=== PATIENT | female | born 1980 | race Two or more races ===

== ENCOUNTER 2021-08-15 16:22 | Emergency (ER) | payer MEDICAID, SELFPAY ==
--- NOTE | 2021-08-15 | ECG_ITS ---
Test Reason : chest pain/dizzy Blood Pressure : / mmHG Vent. Rate : 082 BPM Atrial Rate : 082 BPM P-R Int : 160 ms QRS Dur : 084 ms QT Int : 370 ms P-R-T Axes : 038 -04 018 degrees QTc Int : 432 ms Normal sinus rhythm Minimal voltage criteria for LVH, may be normal variant ( R in aVL ) Borderline ECG When compared with ECG of 21-JUL-2019 13:06, No significant change was found Referred By: Generic ED Physician Electronically Signed By:ELO PETERSON MD
[2021-08-15 16:30] VITALS: BP 124/63; PULSE 86; RESP 16; TEMP 36.4; O2SAT 99; BMI 42.5
--- NOTE | 2021-08-15 16:57 | ED.CHESTPAIN ---
HPI - Chest Pain General Chief Complaint: Chest Pain Stated Complaint: chest pain and dizzness Time Seen by Provider: 08/15/21 16:57 Source: patient Mode of arrival: ambulatory Limitations: no limitations History of Present Illness HPI narrative: Since Friday she has had dizziness that has not stopped, the patient suffers from chronic vertigo. During this time she has had intermittent chest pain. she feels spaced out. Patient has had vertigo since 2007. Patient states she takes meclizine. At times she has gone to physical therapy. Now feeling that she is off balance. Patient has had high blood pressure and associated chest pain in the past. MD complaint: chest pain Onset (ago): year(s) Timing of current episode: episodic Onset: other (with vertigo) Pain location: substernal Severity: mild Quality: tightness Risk Factors Coronary artery disease risk factors: hyperlipidemia and hypertension Related Data Allergies Allergy/AdvReac Type Severity Reaction Status Date / Time No Known Allergies Allergy Unverified 06/15/20 17:52 Review of Systems Constitutional: Constitutional: Reports no additional constitutional complaints Eyes: Eyes: Reports no additional eye complaints ENT: Denies dizziness Cardiovascular: Cardiovascular: Reports no additional cardiovascular complaints Respiratory: Respiratory: Reports as per HPI Gastrointestinal: Gastrointestinal: Reports no additional gastrointestinal complaints Genitourinary: Genitourinary: Reports no additional female genitourinary complaints Musculoskeletal: Musculoskeletal: Reports no additional musculoskeletal complaints Integumentary/Breasts: Skin/Breast: Denies rash Neurologic: Reports system reviewed and no additional complaints, except as documented, Denies dizziness and Denies Sensory deficit (Neuro) Psychiatric: Psychiatric: Denies anxiety [facility] Past Medical History Medical History Arthritis Bipolar 1 disorder Depression Fibromyalgia HTN (hypertension) Migraine Sleep apnea Vertigo Social History Social History Advance Directives: No Advance Directives Information Provided: No Physical Exam Vital Signs: Vital Signs: Last Vital Signs Temp 97.5 F 08/15/21 16:30 Pulse 86 08/15/21 16:30 Resp 16 08/15/21 16:30 BP 124/63 08/15/21 16:30 Pulse Ox 99 08/15/21 16:30 Body Mass Index 42.5 Const: Nutritional Appearance: obese Orientation/consciousness: oriented to person and patient oriented x3 Limitations: no limitations HENMT: Other: bilateral cerumen impaction Head: Yes normal to inspection General nose exam: Normal external nose present Mouth: Normal oral and palatal mucosa present and oropharynx normal Throat: Yes posterior oropharynx normal Eyes: Other: no nystagmus General: appearance normal, both eyes and all related structures Neck: Other: supple Neck: Yes normal visual inspection Chest: Chest palpation & inspection: normal inspection of the chest Resp: Auscultation: clear to auscultation bilaterally Cardio: Jugular venous distension: no JVD Rate: regular rate Rhythm: regular rhythm Heart sounds: S1 normal heart sound present and S2 normal heart sound present GI: Inspection: Yes normal to inspection Palpation (GI): Soft to palpation, nontender and No hepatosplenomegaly present Auscultation: normal bowel sounds : General: Yes no CVA tenderness Back/Spine/Pelvis: Back: no CVA tenderness Skin: General skin exam: no rashes or lesions noted Neuro: Other: patient sensitive to movement despite no nystagmus General: oriented to person and patient oriented x3 Cranial nerves: Yes CN's II-XII intact bilaterally Motor exam (neuro): 5/5 motor strength present throughout Sensory Exam: No Sensory deficit (Neuro) Extrem: General: Yes normal to inspection Psych: Appearance: grossly normal Course Reevaluation(s) Reevaluation #1: Patient with vertigo likely from bilateral cerumen impaction, chest pain story does not sound cardiac, EKG and troponin are normal. Will dc home Time: 18:08 Procedures Procedure Narrative Procedure Narrative: bilateral cerumen impactions removed with a combination of irrigation and currette MDM - Chest Pain Lab Data Result diagrams: 08/15/21 17:33 08/15/21 17:33 Labs: Lab Results 08/15/21 08/15/21 08/15/21 Range/Units 17:33 17:33 17:33 WBC 7.8 (4.8-10.8) X10*3/uL RBC 5.14 (4.20-5.50) X10*6/uL Hgb 11.6 L (12.0-16.0) g/dl Hct 38.2 (37.0-47.0) % MCV 74.3 L (80.0-98.0) fL MCH 22.6 L (27.0-33.0) pg MCHC 30.4 L (31.0-35.0) g/dl RDW 17.3 H (11.0-16.0) % Plt Count 319 (160-400) X10*3/uL MPV 10.2 (9.4-12.3) fL Immature Gran % (Auto) 0.4 (0.0-0.4) % Neut % (Auto) 70.5 (45-73) % Lymph % (Auto) 20.4 (20-40) % [place] % (Auto) 7.0 (2-11) % Eos % (Auto) 1.2 (0-4) % Baso % (Auto) 0.5 (0-2) % Lymph # (Auto) 1.6 (1.2-4.9) X10*3/uL [place] # (Auto) 0.5 (0.1-1.2) X10*3/uL Eos # (Auto) 0.1 (0.0-0.4) X10*3/uL Baso # (Auto) 0.0 (0.0-0.2) X10*3/uL Abs Immat Gran (auto) 0.03 (0.00-0.03) X10*3/uL Absolute Neuts (auto) 5.5 (2.0-8.3) x10*3/uL Absolute Nucleated RBC 0.000 (0.0-0.012) X10*3/uL Nucleated RBC % (auto) 0.0 (0.0-0.2) /100WBC Sodium 139 (135-145) mmol/L Potassium 3.5 (3.3-5.1) mmol/L Chloride 105 (96-108) mmol/L Carbon Dioxide 27 (22-29) mmol/L Anion Gap 11 L (12-20) BUN 12 (9-16) mg/dL Creatinine 0.85 (0.5-1.4) mg/dL Estim Creat Clear Calc 104.1 Estimated GFR > 60 Random Glucose 102 (60-115) mg/dL Calcium 9.1 (8.4-10.2) mg/dL Troponin I High Sens < 3.5 (<3.5-17.0) ng/L ECG Data ECG #1: Attestation: I personally reviewed and interpreted this ECG as follows: Interpretation: sinus rate of 80, no st or twave changes Discharge Plan Discharge Clinical Impression: Vertigo, Bilateral impacted cerumen, Atypical chest pain Patient Disposition: Home, Self-Care Instructions: Vertigo (ED), Noncardiac Chest Pain (ED) Additional Instructions: May continue to take meclizine if your vertigo continues Referrals: Teena Castillo MD [Primary Care Provider] - 1 week
[2021-08-15 17:37] LABS: MANUAL DIFF FLAG NO
[2021-08-15 17:39] LABS: Basophils Percent Auto 0.5 % (0-2); Eosinophils Absolute Auto 0.1 X10*3/uL (0.0-0.4); Eosinophils Percent Auto 1.2 % (0-4); Hematocrit 38.2 % (37.0-47.0); Hemoglobin 11.6 g/dl (12.0-16.0); Imm Gran Abs Auto 0.03 X10*3/uL (0.00-0.03); Imm Gran Pct Auto 0.4 % (0.0-0.4); Lymphocytes Absolute Auto 1.6 X10*3/uL (1.2-4.9); Lymphocytes Percent Auto 20.4 % (20-40); Mean Corpuscular HGB Conc 30.4 g/dl (31.0-35.0); Mean Corpuscular Hemoglobin 22.6 pg (27.0-33.0); Mean Corpuscular Volume 74.3 fL (80.0-98.0); Mean Platelet Volume 10.2 fL (9.4-12.3); Monocytes Absolute Auto 0.5 X10*3/uL (0.1-1.2); Neutrophils Absolute Auto 5.5 x10*3/uL (2.0-8.3); Neutrophils Percent Auto 70.5 % (45-73); Platelet Count 319 X10*3/uL (160-400); Red Blood Count 5.14 X10*6/uL (4.20-5.50); Red Cell Distribution Width 17.3 % (11.0-16.0); White Blood Count 7.8 X10*3/uL (4.8-10.8)
[2021-08-15 18:00] LABS: Anion Gap 11 (12-20); Blood Urea Nitrogen 12 mg/dL (9-16); Calcium 9.1 mg/dL (8.4-10.2); Carbon Dioxide 27 mmol/L (22-29); Chloride 105 mmol/L (96-108); Creatinine Clr Calc Pharmacy 104.1; Estimated Glomerular Filt Rate > 60; Glucose Random 102 mg/dL (60-115); Potassium 3.5 mmol/L (3.3-5.1); Sodium 139 mmol/L (135-145)
[2021-08-15 18:01] LABS: Troponin-I High Sensitivity < 3.5 ng/L (<3.5-17.0)
[2021-08-15 18:18] VITALS: BP 125/82; PULSE 74; RESP 16; TEMP 36.6; O2SAT 99
== END 2021-08-15 18:25 | disposition home or self-care (01) ==
PROVIDERS: Emergency Provider Emergency Medicine; PCP Internal Medicine
DX: R07.89 Other chest pain (principal); H61.23 Impacted cerumen, bilateral; R42 Dizziness and giddiness
CPT/HCPCS: 36415; 69210; 80048; 84484; 85025; 93005; 99283

== ENCOUNTER → 2021-11-06 13:43 | Outpatient (BNVA) | payer MEDICAID, SELFPAY | PROVIDERS: PCP Internal Medicine; Visit Provider Physician Assistant ==

== ENCOUNTER 2021-11-13 14:07 | Outpatient (REF) | payer MEDICAID, SELFPAY ==
[2021-11-13 16:08] LABS: Iron 32 mcg/dL (30-160); Percent Iron Saturation 7 % (15-50); Total Iron Binding Capacity 429 mcg/dL (228-428); Unsaturated Iron Binding 397 ug/dL
[2021-11-13 16:32] LABS: Ferritin 8 ng/mL (10-250)
[2021-11-15 13:21] LABS: Transferrin 319 mg/dL (188-341)
== END 2021-11-13 14:08 | disposition home or self-care (01) ==
LOC: HO.LAB 14:07
PROVIDERS: PCP Internal Medicine; Referring Provider Internal Medicine; Visit Provider Nurse Practitioner Family
DX: G47.30 Sleep apnea, unspecified (principal); G25.81 Restless legs syndrome; G47.19 Other hypersomnia; R06.83 Snoring; D64.9 Anemia, unspecified; G43.909 Migraine, unspecified, not intractable, without status migrainosus; E66.9 Obesity, unspecified; I10 Essential (primary) hypertension; Z79.899 Other long term (current) drug therapy
CPT/HCPCS: 36415; 82728; 83540; 84466; 99202

== ENCOUNTER 2021-12-05 10:05 | Outpatient (REF) | payer MEDICAID, SELFPAY ==
--- NOTE | 2021-12-05 | EMG_ITS ---
This is a 41-year-old woman with history of right more than left upper extremity pain and numbness. Neurological examination is normal. No Tinel or Phalen sign. IMPRESSION: Carpal tunnel syndrome. Nerve conduction EMG study: Early carpal tunnel syndrome on the right, otherwise normal study of the upper extremities. Normal EMG of the right C5-T1 innervated muscles. MD SARANYA Coe/GLYNN / [id number]
== END 2021-12-05 10:06 | disposition home or self-care (01) ==
LOC: HO.NEURO 10:05
PROVIDERS: PCP Internal Medicine; Visit Provider Internal Medicine
DX: M79.641 Pain in right hand (principal); M79.642 Pain in left hand; G56.01 Carpal tunnel syndrome, right upper limb
CPT/HCPCS: 95885; 95913

== ENCOUNTER → 2021-12-07 08:13 | Outpatient (BNVA) | payer MEDICAID, SELFPAY | PROVIDERS: PCP Internal Medicine; Visit Provider Surgery ==

== ENCOUNTER 2021-12-13 06:43 | Outpatient (REF) | payer MEDICAID, SELFPAY ==
--- NOTE | ~2021-12-13 | XR_ITS ---
EXAMINATION: XR lumbar spine 2-3V CLINICAL INFORMATION: Reason for Exam LUMBAGO WITH SCIATICA LEFT SIDE COMPARISON: Lumbar spine radiographs 06/10/2016 TECHNIQUE: 3 views of the lumbar spine XR/XR lumbar spine 2-3V FINDINGS/IMPRESSION: 5 nonrib-bearing lumbar-type vertebral bodies. Vertebral body heights are maintained. Minimal dextroconvex curvature of the lumbar spine. Mild degenerative changes at the thoracolumbar junction with degenerative endplate spurring. Disc space heights are maintained. Paravertebral soft tissues are unremarkable.
--- NOTE | ~2021-12-13 | XR_ITS ---
EXAMINATION: XR chest 2V CLINICAL INFORMATION: Reason for Exam E66.01 - Morbid (severe) obesity due to excess calories COMPARISON: Chest radiograph 07/21/2019 TECHNIQUE: 2 views of the chest XR/XR chest 2V FINDINGS/IMPRESSION: Clear lungs. No pneumothorax. No pleural effusion. Normal cardiomediastinal silhouette.
[2021-12-13 07:17] LABS: MANUAL DIFF FLAG NO
--- NOTE | 2021-12-13 07:18 | ECG_ITS ---
Test Reason : E66.01 Blood Pressure : / mmHG Vent. Rate : 078 BPM Atrial Rate : 078 BPM P-R Int : 152 ms QRS Dur : 088 ms QT Int : 402 ms P-R-T Axes : 041 009 030 degrees QTc Int : 458 ms Normal sinus rhythm Normal ECG When compared with ECG of 15-AUG-2021 16:41, No significant change was found Referred By: Robert Hutson Electronically Signed By:ROBERT UREÑA
[2021-12-13 07:54] LABS: Basophils Percent Auto 0.3 % (0-2); Eosinophils Absolute Auto 0.1 X10*3/uL (0.0-0.4); Eosinophils Percent Auto 1.9 % (0-4); Hematocrit 36.6 % (37.0-47.0); Hemoglobin 11.1 g/dl (12.0-16.0); Imm Gran Abs Auto 0.02 X10*3/uL (0.00-0.03); Imm Gran Pct Auto 0.3 % (0.0-0.4); Lymphocytes Absolute Auto 1.3 X10*3/uL (1.2-4.9); Lymphocytes Percent Auto 22.6 % (20-40); Mean Corpuscular HGB Conc 30.3 g/dl (31.0-35.0); Mean Corpuscular Hemoglobin 22.1 pg (27.0-33.0); Mean Corpuscular Volume 72.8 fL (80.0-98.0); Mean Platelet Volume 10.1 fL (9.4-12.3); Monocytes Absolute Auto 0.5 X10*3/uL (0.1-1.2); Monocytes Percent Auto 8.4 % (2-11); Neutrophils Absolute Auto 3.9 x10*3/uL (2.0-8.3); Neutrophils Percent Auto 66.5 % (45-73); Platelet Count 325 X10*3/uL (160-400); Red Blood Count 5.03 X10*6/uL (4.20-5.50); White Blood Count 5.8 X10*3/uL (4.8-10.8)
[2021-12-13 08:18] LABS: Estimated Average Glucose 108 mg/dL; Hemoglobin A1c % 5.4 %
[2021-12-13 08:48] LABS: Ferritin 12 ng/mL (10-250); TSH reflex Free T4 1.77 uIU/mL (0.32-4.0)
[2021-12-13 08:55] LABS: Alanine Aminotransferase 19 U/L (0-31); Alkaline Phosphatase 61 U/L (39-117); Anion Gap 15 (12-20); Aspartate Amino Transferase 19 U/L (5-31); Bilirubin Total 0.3 mg/dL (0.0-1.0); Blood Urea Nitrogen 13 mg/dL (9-16); C Reactive Protein 0.59 mg/dL (< or = 0.50); Calcium 9.7 mg/dL (8.4-10.2); Carbon Dioxide 24 mmol/L (22-29); Chloride 103 mmol/L (96-108); Cholesterol 157 mg/dL; Estimated Glomerular Filt Rate > 60; Glucose Random 93 mg/dL (60-115); HDL Cholesterol 53 mg/dL; Iron 22 mcg/dL (30-160); LDL Cholesterol Calculated 93 mg/dl; Potassium 3.5 mmol/L (3.3-5.1); Sodium 138 mmol/L (135-145); Total Protein 7.4 g/dL (6.5-8.0); Triglycerides 56 mg/dL
[2021-12-13 09:01] LABS: Folate 15.9 ng/mL (> or = 4.0); Vitamin B12 659 pg/mL (200-900)
[2021-12-13 09:19] LABS: Percent Iron Saturation 6 % (15-50); Total Iron Binding Capacity 382 mcg/dL (228-428); Unsaturated Iron Binding 360 ug/dL
[2021-12-14 16:06] LABS: Calcium (PTHI) 9.3 mg/dL (8.6-10.2); PTHI 51 pg/mL (16-77)
[2021-12-18 02:46] LABS: Zinc 67 mcg/dL (60-130)
[2021-12-19 12:52] LABS: Vitamin B1 13 nmol/L (8-30)
[2021-12-19 14:06] LABS: Vitamin A 36 mcg/dL (38-98)
== END 2021-12-13 06:44 | disposition home or self-care (01) ==
LOC: HO.LAB 06:43
PROVIDERS: Absent Provider Internal Medicine; PCP Internal Medicine; Visit Provider Surgery
DX: M54.41 Lumbago with sciatica, right side (principal); M54.42 Lumbago with sciatica, left side; E66.01 Morbid (severe) obesity due to excess calories; G47.33 Obstructive sleep apnea (adult) (pediatric); K21.9 Gastro-esophageal reflux disease without esophagitis; I10 Essential (primary) hypertension; Z99.89 Dependence on other enabling machines and devices
CPT/HCPCS: 36415; 71046; 72100; 80053; 80061; 82306; 82607; 82728; 82746; 83036; 83540; 83970; 84425; 84443; 84590; 84630; 85025; 86140; 93005

== ENCOUNTER → 2021-12-18 12:56 | Outpatient (BNVA) | payer MEDICAID, SELFPAY | PROVIDERS: PCP Internal Medicine; Visit Provider Physician Assistant | DX: Z11.0 Encounter for screening for intestinal infectious diseases (principal) | CPT/HCPCS: 99211 ==

== ENCOUNTER 2021-12-18 15:22 | Outpatient (REF) | payer MEDICAID, SELFPAY ==
[2021-12-19 11:30] LABS: H Pylori Breath Test Positive (Negative)
== END 2021-12-18 15:23 | disposition home or self-care (01) ==
LOC: HO.LNP 15:22
PROVIDERS: Visit Provider Surgery
DX: E66.01 Morbid (severe) obesity due to excess calories (principal); K21.9 Gastro-esophageal reflux disease without esophagitis; I10 Essential (primary) hypertension; G47.33 Obstructive sleep apnea (adult) (pediatric); Z99.89 Dependence on other enabling machines and devices
CPT/HCPCS: 83013

== ENCOUNTER → 2021-12-25 08:14 | Outpatient (BNVA) | payer MEDICAID, SELFPAY | PROVIDERS: PCP Internal Medicine; Visit Provider Dietitian, Registered | DX: E66.01 Morbid (severe) obesity due to excess calories (principal) | CPT/HCPCS: 97802 ==

== ENCOUNTER → 2022-01-11 08:24 | Outpatient (BNVA) | payer MEDICAID, SELFPAY | PROVIDERS: PCP Internal Medicine; Referring Provider Surgery; Visit Provider Dietitian, Registered | DX: E66.01 Morbid (severe) obesity due to excess calories (principal) | CPT/HCPCS: 97803 ==

== ENCOUNTER 2022-01-15 12:50 | Outpatient (REF) | payer MEDICAID, SELFPAY ==
[2022-01-16 11:28] LABS: H Pylori Breath Test Negative (Negative)
== END 2022-01-15 12:51 | disposition home or self-care (01) ==
LOC: HO.LNP 12:50
PROVIDERS: PCP Internal Medicine; Referring Provider Internal Medicine; Visit Provider Physician Assistant Surgical
DX: A04.8 Other specified bacterial intestinal infections (principal)
CPT/HCPCS: 83013; 99211

== ENCOUNTER → 2022-01-18 12:14 | Outpatient (BNVA) | payer MEDICAID, SELFPAY | PROVIDERS: PCP Internal Medicine; Referring Provider Internal Medicine; Visit Provider Surgery | DX: E66.9 Obesity, unspecified (principal); Z68.39 Body mass index [BMI] 39.0-39.9, adult | CPT/HCPCS: 99212 ==

== ENCOUNTER → 2022-01-24 21:15 | Outpatient (REF) | payer MEDICAID, SELFPAY | LOC: HO.SL 21:15 | PROVIDERS: PCP Internal Medicine; Visit Provider Nurse Practitioner Family | DX: G25.81 Restless legs syndrome (principal); G47.30 Sleep apnea, unspecified; I10 Essential (primary) hypertension; E66.9 Obesity, unspecified; R06.83 Snoring; G47.19 Other hypersomnia | CPT/HCPCS: 95810 ==

== ENCOUNTER → 2022-01-25 08:09 | Outpatient (BNVA) | payer MEDICAID, SELFPAY | PROVIDERS: PCP Internal Medicine; Visit Provider Dietitian, Registered | DX: E66.01 Morbid (severe) obesity due to excess calories (principal); Z71.3 Dietary counseling and surveillance | CPT/HCPCS: 97803 ==

== ENCOUNTER 2022-01-29 08:18 | Outpatient (REF) | payer MEDICAID, SELFPAY ==
--- NOTE | ~2022-01-29 | US_ITS ---
EXAMINATION: US COMPLETE ABDOMEN WITH LIVER ELASTOGRAPHY CLINICAL INFORMATION: Obesity COMPARISON: Previous abdominal ultrasound July 2019 TECHNIQUE: Real-time imaging of the abdominal viscera. Noninvasive ultrasound liver fibrosis assessment is performed using Mary ElastPQ point quantification shear wave elastography (2D-SWE) with a C5-2 MHz transducer. Multiple elastography samples are obtained. FINDINGS: PANCREAS: Normal. ABDOMINAL AORTA: The proximal, middle, and distal aortic segments are normal in caliber. INFERIOR VENA CAVA: Visualized portions are normal. LIVER: The liver is enlarged. Liver echotexture is increased. There are hypoechoic areas adjacent to the gallbladder, characteristic location of focal fatty sparing. No other focal lesion or intrahepatic biliary duct dilatation. The right lobe measures 20 cm in length. The left lobe measures 14 cm in length. Portal flow is normal/hepatopedal Shear wave liver elastography median stiffness is 1.4 m/s (reference: normal median stiffness is 1.3 m/s or less). IQR/median stiffness to assess sampling precision is 0.13 (reference: good quality data set is IQR/median stiffness of 0.15 or less). GALLBLADDER: The gallbladder is normal in size. There is a 3 mm echogenic density adjacent to the gallbladder wall that does not shadow suggestive of a polyp. COMMON BILE DUCT: Normal in caliber measuring 0.6 cm in diameter. RIGHT KIDNEY: Normal. No hydronephrosis. No renal calculi or focal parenchymal lesions. The kidney measures 11.5 cm in maximum dimension. LEFT KIDNEY: There is question of mild both mild left hydronephrosis and peripelvic cysts. No renal calculi or focal parenchymal lesions. The kidney measures 11 cm in maximum dimension. SPLEEN: Normal. The spleen measures 9.3 cm in maximum dimension. FREE FLUID: None. US/US abdomen comp w elastography IMPRESSION: 1. Impression: Enlarged echogenic liver suggestive of fatty infiltration. Small gallbladder wall polyp. Probable both mild left hydronephrosis and small peripelvic cysts. 2. Liver elastography: Adequate liver sampling. Normal liver stiffness. REFERENCE: Society of Radiologists in Ultrasound Liver Stiffness Thresholds (2020): LIVER STIFFNESS THRESHOLDS: *Liver Stiffness equal or less than 1.3 m/s: High probability of being normal. *Liver Stiffness less than 1.7 m/s: In the absence of other known clinical signs, rules out compensated advanced chronic liver disease. *Liver Stiffness 1.7-2.1 m/s: Suggestive of compensated advanced chronic liver disease but need further test for confirmation. *Liver Stiffness over 2.1 m/s: Rules in compensated advanced chronic liver disease. *Liver Stiffness over 2.4 m/s: Suggestive of clinically significant portal hypertension. QUALITY OF DATA SET: *IQR/Median value equal or less than 0.15 implies a quality data set. *IQR/Median value over 0.15 implies a poor quality data set. SIGNIFICANT CHANGE FROM PRIOR EXAM: Significant change if liver stiffness measurement is 10% or greater from prior exam. OTHER CONSIDERATIONS: The stage of liver fibrosis may be overestimated in the setting of acute hepatitis, liver inflammation, elevated liver function tests, hepatic vascular congestion, obstructive cholestasis, non-fasting state, and infiltrative diseases such as amyloidosis and lymphoma. In some patients with NAFLD, the liver stiffness thresholds for compensated advanced chronic liver disease may be lower. In causes other than viral hepatitis and NAFLD, liver stiffness thresholds are not well established.
--- NOTE | ~2022-01-29 | FL_ITS ---
EXAMINATION: XR FLUOROSCOPY UPPER GI WITH AIR CLINICAL INFORMATION: Morbid/severe obesity due to excess calories. COMPARISON: None. TECHNIQUE: Routine upper GI air-contrast was performed in upright and lying position. FINDINGS: Following oral administration of thick barium and effervescent granules in upright view, there is normal propagation of bolus from the oral cavity through the pharynx and esophagus and into the stomach without any evidence of obstruction, narrowing or stricture. On placing patient supine and prone lying, the course, caliber and peristalsis of the stomach, duodenal bulb and the sweep are normal. The mucosal pattern of esophagus, duodenum and sweep is normal. No gastroesophageal reflux or hernia. FLUOROSCOPY TIME: 1.4 minutes. DOSE AREA PRODUCT: 21.569 uGy-m2 (microgray-meter squared). FL/FL upper GI w air IMPRESSION: Unremarkable upper GI air-contrast study.
== END 2022-01-29 08:19 | disposition home or self-care (01) ==
LOC: HO.US 08:18
PROVIDERS: Visit Provider Surgery
DX: Z01.818 Encounter for other preprocedural examination (principal); E66.01 Morbid (severe) obesity due to excess calories; K21.9 Gastro-esophageal reflux disease without esophagitis; I10 Essential (primary) hypertension
CPT/HCPCS: 74246; 76705; 76981

== ENCOUNTER → 2022-01-30 08:05 | Outpatient (BNVA) | payer MEDICAID, SELFPAY | PROVIDERS: PCP Internal Medicine; Visit Provider Surgery | DX: Z13.89 Encounter for screening for other disorder (principal) ==

== ENCOUNTER → 2022-02-01 08:30 | Outpatient (BNVA) | payer MEDICAID, SELFPAY | PROVIDERS: PCP Internal Medicine; Referring Provider Internal Medicine; Visit Provider Surgery | DX: Z13.89 Encounter for screening for other disorder (principal) ==

== ENCOUNTER 2022-02-06 06:05 | Inpatient (IN) | payer MEDICAID, SELFPAY ==
[2022-01-30 14:36] VITALS: BMI 38.9
[2022-02-01 08:20] LABS: MANUAL DIFF FLAG NO
[2022-02-01 08:38] LABS: Basophils Percent Auto 0.5 % (0-2); Eosinophils Percent Auto 0.6 % (0-4); Hematocrit 37.9 % (37.0-47.0); Hemoglobin 11.6 g/dl (12.0-16.0); Imm Gran Abs Auto 0.02 X10*3/uL (0.00-0.03); Imm Gran Pct Auto 0.3 % (0.0-0.4); Lymphocytes Absolute Auto 1.4 X10*3/uL (1.2-4.9); Lymphocytes Percent Auto 21.9 % (20-40); Mean Corpuscular HGB Conc 30.6 g/dl (31.0-35.0); Mean Corpuscular Hemoglobin 22.8 pg (27.0-33.0); Mean Corpuscular Volume 74.6 fL (80.0-98.0); Mean Platelet Volume 9.7 fL (9.4-12.3); Monocytes Absolute Auto 0.4 X10*3/uL (0.1-1.2); Monocytes Percent Auto 6.9 % (2-11); Neutrophils Absolute Auto 4.4 x10*3/uL (2.0-8.3); Neutrophils Percent Auto 69.8 % (45-73); Platelet Count 278 X10*3/uL (160-400); Red Blood Count 5.08 X10*6/uL (4.20-5.50); Red Cell Distribution Width 19.4 % (11.0-16.0); White Blood Count 6.3 X10*3/uL (4.8-10.8)
[2022-02-01 08:46] LABS: INTERNATIONAL NORM RATIO 1.2 (0.9-1.1); Prothrombin Time 13.2 SEC (9.9-13.0)
[2022-02-01 08:48] LABS: Partial Thromboplastin Time 38.3 SEC (24.1-38.0)
[2022-02-01 08:52] LABS: Estimated Average Glucose 103 mg/dL; Hemoglobin A1c % 5.2 %
[2022-02-01 08:57] LABS: Alanine Aminotransferase 21 U/L (0-31); Albumin Level 3.9 g/dL (3.5-5.0); Alkaline Phosphatase 67 U/L (39-117); Anion Gap 16 (12-20); Aspartate Amino Transferase 17 U/L (5-31); Bilirubin Total 0.4 mg/dL (0.0-1.0); Blood Urea Nitrogen 14 mg/dL (9-16); C Reactive Protein 0.62 mg/dL (< or = 0.50); Calcium 9.7 mg/dL (8.4-10.2); Carbon Dioxide 26 mmol/L (22-29); Chloride 102 mmol/L (96-108); Cholesterol 151 mg/dL; Creatinine Clr Calc Pharmacy 96.8; Estimated Glomerular Filt Rate > 60; Glucose Random 86 mg/dL (60-115); HDL Cholesterol 49 mg/dL; LDL Cholesterol Calculated 90 mg/dl; Potassium 3.2 mmol/L (3.3-5.1); Sodium 141 mmol/L (135-145); Total Protein 7.4 g/dL (6.5-8.0); Triglycerides 60 mg/dL
[2022-02-01 09:20] LABS: TSH reflex Free T4 2.05 uIU/mL (0.32-4.0)
[2022-02-01 11:02] LABS: Insulin 14 uU/mL (2-29)
--- NOTE | 2022-02-01 20:25 | MHC.SHP ---
Pre-Procedural Eval Section A Date of Service: 02/01/22 The patient is an INPATIENT: Yes The History & Physical has been completed within 30 days and I have reviewed it.: Yes Section B Chief Complaint: obesity Relevant Family History (Specify if Yes): No Relevant Social History: None Present Medications: None Medical History: No relevant PMH History of Previous Operations: No relevant previous surgery Allergies: Allergies Allergy/AdvReac Type Severity Reaction Status Date / Time No Known Allergies Allergy Verified 01/30/22 14:35 Review of Systems Sugical H&P ROS: Negative: Constitution, Cardiovascular, Respiratory, Neurological, Psychiatric, Hem-Onc, Allergic/Immunologic, Gastrointestinal, Genitourinary, Musculoskeletal, Integumentary, Endocrine and Eyes/Ears/Nose/Throat Exam Surgical H&P Exam: Normal: HEENT, Normal: Heart, Normal: Lungs, Normal: Extremities, Normal: Abdomen, Normal: Skin and Normal: Neurological Plan Diagnosis/Plan: Unchanged I have reviewed the history and physical and performed a pertinent physical examination on my patient. No changes have occurred unless specified.
--- NOTE | 2022-02-05 09:46 | P.CONAN_ITS ---
Documented by User: Neli Hunt NP 02/05/22 09:48 HPI - Anesthesia Eval Consult details Narrative: 41yo F for Gastrectomy Sleeve,EDG,poss diaphragmatic hernia,poss ventral hernia,poss open, PMFSH Active Problems Active Problems: All Active Problems (Updated 01/30/22 @ 09:39 by Robert Hutson MD) Anemia (Acute) Restless leg syndrome (Acute) Excessive daytime sleepiness (Acute) H. pylori infection (Acute) Vitamin A deficiency (Acute) Obesity (Acute) BMI 39.0-39.9,adult (Acute) BMI 38.0-38.9,adult (Acute) Bipolar 1 disorder (Acute) Depression (Acute) Vertigo (Acute) GERD (gastroesophageal reflux disease) (Acute) HTN (hypertension) (Acute) Obstructive sleep apnea on CPAP (Acute) Arthritis (Acute) Morbid obesity (Acute) Migraine (Acute) Sleep apnea (Acute) Past Medical History Medical History (Updated 01/30/22 @ 09:39 by Robert Hutson MD) Arthritis Bipolar 1 disorder Depression Fibromyalgia GERD (gastroesophageal reflux disease) HTN (hypertension) Migraine Morbid obesity Obstructive sleep apnea on CPAP Sleep apnea Vertigo Family History Family History Mother Hypertension Heart problem Arthritis Diabetes Pacemaker Father Vitiligo Sister No problems noted. Sister No problems noted. Sister No problems noted. Sister No problems noted. Sister No problems noted. Brother No problems noted. Brother No problems noted. Son No problems noted. Son No problems noted. Surgical History Surgical History (Updated 01/30/22 @ 14:35 by Palak Mariano RN) Hx of section Hx of tubal ligation Social History Social History Household Members: Spouse and Children Are you a primary day care provider to a significant other at home: No Do you presently have visiting nurse or other home services: No Alcohol intake: current Alcohol intake frequency: does not drink Patient Tobacco Use Status: Never used Tobacco Use of substances other than those prescribed or required for medical reasons: No Have you been hit, kicked, punched, or otherwise hurt by someone within the past year? If so, by whom?: No Are you DNR?: No Advance Directives: No Advance Directives Information Provided: Yes Advance Directives on File: No Recently lost weight without trying: No Patient : No FDLMP: 01/23/2022 : No Poor oral hygiene: No Current occupational status: disabled [employer] Allergies Allergy/AdvReac Type Severity Reaction Status Date / Time No Known Allergies Allergy Verified 02/06/22 06:19 Home Medications Medication Instructions Recorded Confirmed Last Taken Type amlodipine 10 mg tablet 10 mg PO DAILY 11/06/21 01/30/22 Unknown History duloxetine 60 mg capsule,delayed 60 mg PO DAILY 11/06/21 01/30/22 Unknown History release ergocalciferol (vitamin D2) 1,250 1,250 mcg PO QWEEK 11/06/21 01/30/22 Unknown History mcg (50,000 unit) capsule gabapentin 800 mg tablet 800 mg PO TID 11/06/21 01/30/22 Unknown History hydralazine 25 mg tablet 25 mg PO TID 11/06/21 01/30/22 02/06/22 04:30 History losartan 100 mg tablet 100 mg PO DAILY 11/06/21 01/30/22 02/06/22 04:30 History meclizine 25 mg tablet 50 mg PO BID PRN 11/06/21 01/30/22 Unknown History metoprolol succinate 50 mg 50 mg PO DAILY 11/06/21 01/30/22 Unknown History tablet,extended release 24 hr multivitamin 1 tab PO DAILY 11/06/21 01/30/22 Unknown History prazosin 2 mg capsule 2 mg PO BEDTIME 11/06/21 01/30/22 Unknown History tramadol 50 mg tablet 50 mg PO Q12H PRN 11/06/21 01/30/22 Unknown History trazodone 100 mg tablet 100 mg PO BEDTIME PRN 11/06/21 01/30/22 Unknown History venlafaxine 150 mg 150 mg PO DAILY 11/06/21 01/30/22 02/06/22 04:30 History capsule,extended release 24 hr vitamin B complex-folic acid 0.4 1 tab PO DAILY 11/06/21 01/30/22 Unknown History mg tablet (B Complex 1 (with folic acid)) cholecalciferol (vitamin D3) 25 25 mcg PO DAILY 12/03/21 01/30/22 Unknown History mcg (1,000 unit) capsule meclizine 25 mg tablet 25 mg PO DAILY PRN 12/07/21 01/30/22 Unknown History trazodone 100 mg tablet 100 mg PO BEDTIME PRN 12/07/21 01/30/22 Unknown History baclofen 20 mg tablet 1 tab PO TID 02/06/22 02/06/22 Unknown History Exam Exam Date and Time: February 05, 2022 0946 Height,Weight and Vital Signs: Height 5 ft 3 in Weight 99.79 kg Pertinent Lab Results Pertinent Lab Results: Laboratory Tests 02/01/22 02/01/22 02/01/22 08:15 08:15 08:15 WBC 6.3 RBC 5.08 Hgb 11.6 L Hct 37.9 MCV 74.6 L MCH 22.8 L MCHC 30.6 L RDW 19.4 H Plt Count 278 MPV 9.7 Immature Gran % (Auto) 0.3 Neut % (Auto) 69.8 Lymph % (Auto) 21.9 [place] % (Auto) 6.9 Eos % (Auto) 0.6 Baso % (Auto) 0.5 Lymph # (Auto) 1.4 [place] # (Auto) 0.4 Eos # (Auto) 0.0 Baso # (Auto) 0.0 Abs Immat Gran (auto) 0.02 Absolute Neuts (auto) 4.4 Absolute Nucleated RBC 0.000 Nucleated RBC % (auto) 0.0 PT 13.2 H INR 1.2 H APTT 38.3 H Sodium 141 Potassium 3.2 L Chloride 102 Carbon Dioxide 26 Anion Gap 16 BUN 14 Creatinine 0.87 Estim Creat Clear Calc 96.8 Estimated GFR > 60 Random Glucose 86 Estimat Average Glucose Hemoglobin A1c % Insulin Level 14 Calcium 9.7 Total Bilirubin 0.4 AST 17 ALT 21 Alkaline Phosphatase 67 C-Reactive Protein 0.62 H Total Protein 7.4 Albumin 3.9 Triglycerides 60 Cholesterol 151 LDL Cholesterol, Calc 90 HDL Cholesterol 49 TSH 2.05 Blood Type Antibody Screen 02/01/22 02/01/22 08:15 08:15 WBC RBC Hgb Hct MCV MCH MCHC RDW Plt Count MPV Immature Gran % (Auto) Neut % (Auto) Lymph % (Auto) [place] % (Auto) Eos % (Auto) Baso % (Auto) Lymph # (Auto) [place] # (Auto) Eos # (Auto) Baso # (Auto) Abs Immat Gran (auto) Absolute Neuts (auto) Absolute Nucleated RBC Nucleated RBC % (auto) PT INR APTT Sodium Potassium Chloride Carbon Dioxide Anion Gap BUN Creatinine Estim Creat Clear Calc Estimated GFR Random Glucose Estimat Average Glucose 103 Hemoglobin A1c % 5.2 Insulin Level Calcium Total Bilirubin AST ALT Alkaline Phosphatase C-Reactive Protein Total Protein Albumin Triglycerides Cholesterol LDL Cholesterol, Calc HDL Cholesterol TSH Blood Type O Positive Antibody Screen NEGATIVE Narrative Narrative: EKG 11/2021 Vent. Rate : 078 BPM ? ? Atrial Rate : 078 BPM ?? P-R Int : 152 ms? QRS Dur : 088 ms ? ? QT Int : 402 ms ? ? ? P-R-T Axes : 041 009 030 degrees ?? QTc Int : 458 ms ? Normal sinus rhythm Normal ECG When compared with ECG of 15-AUG-2021 16:41, No significant change was found Assessment and Plan Assessment Anesthesia Assessment: Chart Reviewed Documented by User: Loraine Rebolledo MD 02/06/22 08:10 [facility] Past Medical History Medical History (Updated 01/30/22 @ 09:39 by Robert Hutson MD) Arthritis Bipolar 1 disorder Depression Fibromyalgia GERD (gastroesophageal reflux disease) HTN (hypertension) Migraine Morbid obesity Obstructive sleep apnea on CPAP Sleep apnea Vertigo Family History Family History Mother Hypertension Heart problem Arthritis Diabetes Pacemaker Father Vitiligo Sister No problems noted. Sister No problems noted. Sister No problems noted. Sister No problems noted. Sister No problems noted. Brother No problems noted. Brother No problems noted. Son No problems noted. Son No problems noted. Surgical History Surgical History (Updated 01/30/22 @ 14:35 by Palak Mariano RN) Hx of section Hx of tubal ligation History of Problems with Anesthesia: No Social History Social History Household Members: Spouse and Children Are you a primary day care provider to a significant other at home: No Do you presently have visiting nurse or other home services: No Alcohol intake: current Alcohol intake frequency: does not drink Patient Tobacco Use Status: Never used Tobacco Use of substances other than those prescribed or required for medical reasons: No Have you been hit, kicked, punched, or otherwise hurt by someone within the past year? If so, by whom?: No Are you DNR?: No Advance Directives: No Advance Directives Information Provided: Yes Advance Directives on File: No Recently lost weight without trying: No Patient : No FDLMP: 01/23/2022 : No Poor oral hygiene: No Current occupational status: disabled [employer] Allergies Allergy/AdvReac Type Severity Reaction Status Date / Time No Known Allergies Allergy Verified 02/06/22 06:19 Home Medications Medication Instructions Recorded Confirmed Last Taken Type amlodipine 10 mg tablet 10 mg PO DAILY 11/06/21 01/30/22 Unknown History duloxetine 60 mg capsule,delayed 60 mg PO DAILY 11/06/21 01/30/22 Unknown History release ergocalciferol (vitamin D2) 1,250 1,250 mcg PO QWEEK 11/06/21 01/30/22 Unknown History mcg (50,000 unit) capsule gabapentin 800 mg tablet 800 mg PO TID 11/06/21 01/30/22 Unknown History hydralazine 25 mg tablet 25 mg PO TID 11/06/21 01/30/22 02/06/22 04:30 History losartan 100 mg tablet 100 mg PO DAILY 11/06/21 01/30/22 02/06/22 04:30 History meclizine 25 mg tablet 50 mg PO BID PRN 11/06/21 01/30/22 Unknown History metoprolol succinate 50 mg 50 mg PO DAILY 11/06/21 01/30/22 Unknown History tablet,extended release 24 hr multivitamin 1 tab PO DAILY 11/06/21 01/30/22 Unknown History prazosin 2 mg capsule 2 mg PO BEDTIME 11/06/21 01/30/22 Unknown History tramadol 50 mg tablet 50 mg PO Q12H PRN 11/06/21 01/30/22 Unknown History trazodone 100 mg tablet 100 mg PO BEDTIME PRN 11/06/21 01/30/22 Unknown History venlafaxine 150 mg 150 mg PO DAILY 11/06/21 01/30/22 02/06/22 04:30 History capsule,extended release 24 hr vitamin B complex-folic acid 0.4 1 tab PO DAILY 11/06/21 01/30/22 Unknown History mg tablet (B Complex 1 (with folic acid)) cholecalciferol (vitamin D3) 25 25 mcg PO DAILY 12/03/21 01/30/22 Unknown History mcg (1,000 unit) capsule meclizine 25 mg tablet 25 mg PO DAILY PRN 12/07/21 01/30/22 Unknown History trazodone 100 mg tablet 100 mg PO BEDTIME PRN 12/07/21 01/30/22 Unknown History baclofen 20 mg tablet 1 tab PO TID 02/06/22 02/06/22 Unknown History Exam Airway Mallampati Class: III TM Dist: >3cm Neck ROM: Full Loose/Missing/Broken Teeth: No Heart: RRR Lungs: CTA Assessment and Plan Assessment Anesthesia Assessment: Anesthesia Plan Discussed Final Anesthetic Review History of Problems with Anesthesia: No NPO: Yes ASA Class: III Final Preanesthetic Review: Meds/Allgs Chart Reviewed, Consent Obtained/Reviewed and Anes Risks/Benef Reviewed Patient Risk: Intermediate Procedure Risk: Intermediate Anesthetic Plan Anesthetic Plan: GA Disposition: Standard PACU
[2022-02-05 14:17] LABS: COVID-19 Test Negative (Negative)
[2022-02-06] VITALS (17 sets, daily range): BP systolic 122–156; BP diastolic 63–95; PULSE 75–127; RESP 16–20; TEMP 36.5–37.6; O2SAT 95–100
--- NOTE | 2022-02-06 10:22 | P.DS_ITS ---
DS: Providers Provider Date of Service: 02/07/22 Date of admission: 02/06/22 06:05 Primary care physician: Teena Otoole MD DS: Summary Hospital Course Hospital Course: ADMITTING DIAGNOSIS: morbid obesity, HTN, TERESO, Fibromyalgia, GERD,migraine, bipolar, vertigo DISCHARGE DIAGNOSIS: same, s/p laparoscopic sleeve gastrectomy PAST SURGICAL HISTORY: section PROCEDURE: upper endoscopy, laparoscopic sleeve gastrectomy DISCHARGE SUMMARY: History of Present Illness: The patient is a 41 year-old woman with a BMI of 43 kg/m2 and associated co- morbidities as described above. The patient had extensive work-up,lost 23.8lbs preoperatively and was electively scheduled for laparoscopic, possible open sleeve gastrectomy and gastropexy. Risks and complications of the surgery were discussed with the patient in advance, particularly the possibility of , pulmonary embolism, anastomotic leak, bleeding, bowel injury, GERD, cardiac, renal or pulmonary complications. The patient understood all the risks and was in agreement with the surgical plan. Hospital Course: The patient underwent an uneventful laparoscopic sleeve gastrectomy with g astropexy on the day of admission. Postoperatively, the patient was transferred to the surgical floor. The patient received IV Acetaminophen and IV dilaudid for pain control. Patient was started on bariatric phase 1 diet POD #0. On postoperative day one, the patient was feeling well without nausea, vomiting, fevers, or tachycardia. The patient had some mild incisional pain and the abdomen was soft. On the morning of postoperative day one, the patient was continued on 1 ounce of water or ice every half hour. During the day, the patient did fairly well, having some incisional pain, but able to ambulate adequately and to tolerate liquids well. Since the patient is doing well, we decided that the patient was ready to be discharged. The patient was given instructions to follow-up with me next week and to call my office for any fever over 101, persistent abdominal pain, nausea, vomiting, GERD, symptoms of DVT such as calf tenderness, or leg swelling, or pulmonary embolism such as chest pain or shortness of breath. The patient was also instructed to drink 40-60 ounces of liquids per day using the 1-ounce cups. The patient had been given prescriptions for Tylenol for pain, Zofran prn for nausea, and pantoprazole and carafate previously. The patient was encouraged to ambulate and use the incentive spirometer. The patient was allowed to shower, but no baths, and encouraged to stay active at home. All of these instructions were given to the patient personally. All questions were answered and the patient understood all instructions, the instructions were also given to the patient in print. Time Spent with Patient Time attestation: Total time spent providing and/or coordinating discharge services: Discharge coordination time: Less than 30 minutes Quality: Safe Use of Opioids Does Pt have an Active Cancer Diagnosis on the Problem List?: No Quality: Stroke Does the patient have a stroke diagnosis?: No Physical Exam Vital Signs: Vital Signs: Last Vital Signs Temp 98.8 F 02/06/22 10:09 Pulse 115 H 02/06/22 10:19 Resp 17 02/06/22 10:19 BP 135/71 02/06/22 10:19 Pulse Ox 100 02/06/22 10:19 BMI result Body Mass Index 38.9 DS: Data Data Completed and Pending Pending studies at discharge: Pending at discharge 02/06/22 09:32 Surgical [PTH] Routine Labs on day of discharge: Laboratory Results - last 24 hr 02/05/22 13:30 COVID-19 ([facility]) Negative COVID-19 Clin Com See Note Discharge Plan Discharge Anticipated Discharge Date/Time: 02/07/22 10:18 Patient Disposition: Home, Self-Care Discharge Diagnosis: s/p sleeve gastrectomy Referrals: Teena Castillo MD [Primary Care Provider] - 1 Week Discharge Medications: Continued duloxetine 60 mg capsule,delayed release(DR/EC) 60 mg PO DAILY 0RF prazosin 2 mg capsule 2 mg PO BEDTIME 0RF losartan 100 mg tablet 100 mg PO DAILY 0RF amlodipine 10 mg tablet 10 mg PO DAILY 0RF metoprolol succinate 50 mg tablet extended release 24 hr 50 mg PO DAILY 0RF hydralazine 25 mg tablet 25 mg PO TID 0RF pantoprazole 40 mg tablet,delayed release (DR/EC) 40 mg PO DAILY Qty: 30 2RF sucralfate 100 mg/mL suspension 10 ml PO BID Qty: 400 2RF ondansetron HCl 4 mg tablet 4 mg PO Q12H Qty: 20 0RF Held trazodone 100 mg tablet 100 mg PO BEDTIME PRN (Reason: insomnia) 0RF Hold Instructions: Resume on 02/18/22. tramadol 50 mg tablet 50 mg PO Q12H PRN (Reason: Pain) 0RF Hold Instructions: Resume on 02/18/22. gabapentin 800 mg tablet 800 mg PO TID 0RF Hold Instructions: Resume on 02/18/22. meclizine 25 mg tablet 50 mg PO BID PRN (Reason: Vertigo) 0RF Hold Instructions: Resume on 02/18/22. Discontinued ascorbic acid (vitamin C) 500 mg tablet 500 mg PO DAILY 30 Days Qty: 30 6RF vitamin A palmitate 10,000 unit capsule 10,000 unit PO .COMPLEX Qty: 30 0RF Rx Instructions: 10,000 units PO one per day; baclofen 20 mg tablet 1 tab PO TID 0RF naproxen 500 mg tablet 1 tab PO BID PRN (Reason: Pain) 0RF ferrous sulfate [FeroSul] 325 mg (65 mg iron) tablet 325 mg PO DAILY 30 Days Qty: 30 3RF docusate sodium [Colace] 100 mg capsule 100 mg PO BID PRN (Reason: constipation) 30 Days Qty: 60 3RF cholecalciferol (vitamin D3) 25 mcg (1,000 unit) capsule 25 mcg PO DAILY 0RF vitamin B complex-folic acid [B Complex 1 (with folic acid)] 0.4 mg tablet 1 tab PO DAILY 0RF multivitamin Tablet 1 tab PO DAILY 0RF polyethylene glycol 3350 [Miralax] 17 gram powder in packet 17 g PO DAILY Qty: 14 0RF Rx Instructions: Mix each packet with 8oz of water and do 7 packets on 02/04/2022 and another 7 packets on 02/05/2022 Discharge Orders: Discharge Order (Routine); Ordered 02/07/22 Ordered By: Robert Hutson Diet: other Activity on Discharge: No heavy lifting Stand Alone Forms: Patient Portal Discharge page Care Plan Goals: weight loss Health Concerns: morbid obesity Plan of Treatment: No tub baths, sex or returning to work until discussed at first post op appointment. No exercise, alcohol, tobacco or illegal drug use. Continue to use incentive spirometer hourly while awake. Walk in home for 5- 10 minutes every 2 hours during the first week. Continue phase 1 diet today and start phase 2 diet tomorrow morning. Follow all instructions in the bariatric handbook and call with any questions. 1. Please call your doctor or come back to the emergency room should any new symptoms arise. 2. You will receive a courtesy call from [facility] 24-48 hours after discharge. 3. Activity: abstain from alcohol, practice limited stair climbing, no bending, no driving, no exercise, no illicit substances, no lifting, no sex, no tub bath, no work. 4. Diet: continue as discussed with Dr. Hutson. 5. Dressing Change/Wound Care: Do not change or remove surgical dressings unless they are wet or soiled. 6. Call your doctor if: - Your temperature exceeds 101.5 F - You experience excessive pain or swelling - You have an unexpected reaction to medication - You have excessive bleeding - You experience continued vomiting/nausea - Your incision begins to separate - Your incision shows signs of infection such as increased redness, swelling, excessive pain, heat, or drainage (light blood or clear fluid is normal) 7. General instructions: No lifting greater than 5 lbs for the next 4 weeks[address] driving within 24 hours of taking narcotic pain medications. If you do not move your bowels in the next 2 days, please take milk of magnesia over the counter. Please follow the post op diet and do not advance your diet until you are seen in the office in about 2 weeks. Please walk around your home every hour or two to prevent blood clots from forming in your legs. You do not need to wake from sleeping to walk. Please sleep in a bed or couch to prevent kinking at the hips and knees. Please take your incentive spirometer (your lung outreach team member) home with you and use it for the next few days to prevent pneumonias. You may shower, no hot tubs, baths or swimming pools. Please call the office with any questions or concerns such as increasing abdominal pain, fever, chills, shortness of breath, chest pain, leg pain or swelling, or redness or drainage from your incisions. Do not hesitate to contact the office with any questions at . The patient's medical history has been reviewed and they are considered low risk for post op DVT and therefore DVT prophylaxis is not considered necessary. Travel after surgery was reviewed. The patient has not disclosed any travel plans during the first 30 days after surgery and they have been advised that within the first 30 days after surgery any bus, plane, train or car travel over 2 hours in duration is contraindicated due to the possibility of developing blood clots from immobility. Any travel, needs to include periods of ambulation of 10 minutes in duration every 2 hours. The patient was instructed to discuss any plans for travel during this period with their bariatric surgeon. Assessment: stable, post op sleeve gastrectomy
[2022-02-06] MEDS: Famotidine/PF 20 MG/2 ML VIAL IVPUSH ×2 (10:34→19:46)
[2022-02-06] MEDS: Lactated Ringers 1,000 ML 100 ML IVCONT ×2 (10:41→19:55)
[2022-02-06 10:55] LABS: Anion Gap 15 (12-20); Blood Urea Nitrogen 10 mg/dL (9-16); Calcium 8.9 mg/dL (8.4-10.2); Carbon Dioxide 23 mmol/L (22-29); Chloride 104 mmol/L (96-108); Creatinine Clr Calc Pharmacy 109.4; Estimated Glomerular Filt Rate > 60; Glucose Random 135 mg/dL (60-115); Potassium 3.4 mmol/L (3.3-5.1); Sodium 139 mmol/L (135-145)
[2022-02-06] MEDS: Metoclopramide HCl 10 MG/2 ML VIAL IVPUSH (11:41)
[2022-02-06] MEDS: ceFAZolin Sodium/Dextrose,Iso 2 GM/50 ML PIGGYBACK IV (13:32)
--- NOTE | 2022-02-06 13:45 | PHA.MEDREC ---
Pharmacy Consult ? Medication Reconciliation Pharmacy has completed the medication reconciliation. Contact [facility] for an list of active medications. Kimberly Krueger, DonnaD
[2022-02-06] MEDS: Baclofen 20 MG TABLET PO ×2 (14:29→20:22)
--- NOTE | 2022-02-06 14:41 | PM.OP ---
Brief Operative Note Date of Service: 02/06/22 Pre-op diagnosis: Severe obesity and comorbidities (see below) Post-op diagnosis: same Procedure: INITIAL PATIENT BMI ON PRESENTATION AT OUR OFFICE: 43 kg/m2 LAST BMI BEFORE SURGERY: 39.5 kg/m2 COMORBIDITIES: Sleep apnea on CPAP, hypertension, depression, anxiety, migraines, fibromyalgia, insomnia, vertigo, liver steatosis ?The patient presented to the Weight Management Program with significant obesity that was negatively impacting the patient's comorbidities as listed above.? The program is a phased program with a special focus on preoperative medical weight management to promote substantial weight loss and prepare the patients for the second phase of the program: bariatric surgery. The patient participated in an intensive weekly lifestyle ?intervention and exercise program during which the patient ?has lost between the initial office visit and the last preoperative visit 26.8lbs, or 11.04% of initial actual body weight. It was deemed appropriate for the patient to now have bariatric surgery. In light of the current Covid-19 pandemic and the well documented strong association of obesity and increased risk of worse outcomes if infected with Covid-19 (REFERENCES:https://pubmed.ncbi.nlm.nih.gov/03695798/,?https://pubmed.ncbi.nlm.nih.gov/10208997/), any delay in undergoing bariatric surgery may lead to the patient's worsening health condition and increased?risk of more severe Covid-19 disease if infected. In addition a recent?study from [facility] published in [facility] on 09/24/2021 ([email or web address]) found that, among patients with obesity, substantial weight loss achieved with surgery was associated with improved outcomes of COVID-19 infection. The findings suggest that obesity can be a modifiable risk factor for the severity of COVID-19 infection. In addition, the patient met the BMI-criteria for bariatric surgery based on the BMI on initial presentation. The patient should not be penalized for achieving such weight loss because ?it is not sustainable long-term without surgical intervention and it was achieved in preparation for bariatric surgery ?under my direction and based on my published research ([email or web address]).[email or web address] and?[email or web address].soard.org/[email or web address])16730-X/pdf) ?that a 10% preoperative weight loss improves long-term weight loss after surgery and reduces perioperative complications.? Insurance carriers such as [facility] have endorsed my recommendations ?and have included in their policies criteria to include a 10% preoperative weight loss requirement. PROCEDURE: Esophago-gastroscopy, laparoscopic sleeve gastrectomy and laparoscopic gastropexy INDICATIONS: This is a 41 year-old female who was electively scheduled for laparoscopic, possibly open sleeve gastrectomy. The risks and complications of the procedure were discussed with the patient in advance, particularly the possibility of ; pulmonary embolism; staple line leak; bleeding; GERD; cardiac, pulmonary, or renal complications; as well as long-term problems such as insufficient weight loss, vitamin deficiency, strictures, or ulcers. The patient understood all the risks, and was in agreement to proceed with surgery. DESCRIPTION OF PROCEDURE: After informed consent was obtained from the patient, the patient was given preoperative antibiotics, and was transferred to the operating room. After successful induction of general anesthesia, pneumatic compression devices were placed on both lower extremities. An upper endoscopy was performed next. The oropharynx and esophagus appeared to be within normal limits. There was no diaphragmatic hernia present, consistent with the findings of the preoperative upper GI. The stomach was entered. Then after all fluid and air were suctioned and the stomach was fully decompressed, the scope was withdrawn and secured in the mid esophagus. The patient was then prepped and draped in the usual sterile manner, and abdominal access was established at the right upper quadrant with the Marilee technique. A 12 mm blunt port was inserted, and the abdomen was insufflated with CO2 to a pressure of 15 mmHg. Under direct visualization, additional ports were placed, specifically two 5 mm Versi-step ports to the left upper quadrant, and a 5 mm Versi-Step port to the right upper quadrant. 1% lidocaine plain was used to infiltrate all port sites as well as all fascia defects. Following that, the patient was placed in a steep reverse Trendelenburg position. An additional 5 mm port was placed to the right flank for the Mediflex retractor that was used to retract the left lobe of the liver. The gastro-esophageal fat pad was opened with the ultrasonic device (Thunderbeat, Olympus) and the anterior esophagus and hiatus were exposed. The angle of His was opened with the ultrasonic device the fundus of the stomach from any diaphragmatic and splenic attachments. I then opened the gastrocolic ligament between the transverse colon and the greater curvature of the stomach with the ultrasonic device to enter the lesser sac and facilitate the ligation of the short gastric vessels. I started at a mid-point along the greater curvature and using the Thunderbeat, all short gastric vessels were divided all the way to the angle of His until the left nurys was completely dissected at its entirety. I then divided the gastro-colic ligament distally to a distance of about 3-4 cm proximal to the pylorus. The stomach was then divided transversely with one Endo RUTH-45 purple, one RUTH-45 orange load and four RUTH-60 articulating orange loads using the AEON stapler and loads. Every effort was made that the gastric sleeve had a tubular shape and an even caliber throughout. Once the sleeve resection was completed, the staple line of the gastric sleeve was reinforced with Hemoclips. The resected stomach was retrieved without difficulty from the Marilee port. A gastropexy was then performed in order to prevent postoperative GERD and partial gastric volvulus. Several interrupted 2.0 Surgidac sutures were placed between the sleeve's staple line and the previously divided greater omentum and gastro-colic ligament using the Endo-Stitch device. ?An upper endoscopy was performed. There was no narrowing at the GE junction. The scope was easily advanced all the way to the pylorus which was clearly visualized. There was no narrowing anywhere and the sleeve's caliber was even throughout. The sleeve's staple line was inspected and there was no evidence of ischemia, bleeding or dehiscence. At that point the gastroscope was withdrawn from the patient?s mouth while we were decompressing the bowel and the stomach from any remaining air. I looked into the lesser sac to see how the sleeve was situating and it was situating well. There was no bleeding from the staple line, spleen, or short gastric vessels. The Mediflex retractor was removed, and the undersurface of the liver was inspected and there was no bleeding. The patient was placed in supine position. I closed the fascial defect of the 12 mm port site with a figure of eight #1 Polysorb suture. Then 100 cc 0.25 % Marcaine plain with 10 mg of Dexamethasone were used to infiltrate the fascial closure as well as all skin incisions. At this point, the abdomen was deflated, all ports were removed under direct vision, and no bleeding was noted from any of the port sites. The skin incisions were irrigated with saline and were closed with 4-0 absorbable monofilament sutures. Steri-Strips and OpSites were used to cover all incisions. The patient was extubated and was transferred in stable condition to the recovery room for further care. I was present and performed all sarmiento parts of the procedure. Ms. Angeles was the portfolio assistant. There were no residents to assist with this case. Zaid Hutson MD, PhD, FACS Surgeon: Robert Hutson MD Anesthesia: GETA, local and other (TAP block and 5ml Zynrelef) Was an Tree Shear Operator used for this Procedure?: Yes Tree Shear Operator: Elissa Angeles Estimated blood loss (mL): 10 IV fluids (mL): 2,500 Urine output (mL): 0 (No Scott to record) Pathology: other (Stomach) Condition: stable Disposition: PACU
--- NOTE | 2022-02-06 14:46 | P.PNGS_ITS ---
Subjective Subjective Date of Service: 02/07/22 Interval history: Patient has mild incisional pain, but was able to ambulate and use the incentive spirometer. She is tolerating phase 1 bariatric diet Physical Exam Vital Signs: Vital Signs: Last Vital Signs Temp 98.2 F 02/06/22 14:35 Pulse 92 02/06/22 14:35 Resp 16 02/06/22 14:35 BP 134/70 02/06/22 14:35 Pulse Ox 95 02/06/22 14:35 BMI result Body Mass Index 38.9 GI: Inspection: Yes normal to inspection, Yes incision (clean, dry and intact) and Yes obesity Extrem: Right lower extremity: normal to inspection (no calf tenderness) Left lower extremity: normal to inspection (no calf tenderness) Objective Data Active Medications Amlodipine Besylate (Amlodipine Besylate 10 Mg Tablet) 10 mg PO DAILY [facility]; Protocol Baclofen (Baclofen 20 Mg Tablet) 20 mg PO TID [facility] Last Admin: 02/06/22 14:29 Dose: 20 mg Documented by: SID Duloxetine HCl (Duloxetine Hcl 60 Mg Capsule.Dr) 60 mg PO DAILY [facility] Famotidine (Famotidine/Pf 20 Mg/2 Ml Vial) 20 mg IVPUSH BID [facility] Last Admin: 02/06/22 10:34 Dose: 20 mg Documented by: SLY Hydromorphone HCl (Hydromorphone Hcl 0.5 Mg/0.5 Ml Syringe) 0.25 mg IVPUSH Q4H PRN; Protocol PRN Reason: Pain, Moderate (Pain Scale 4-6 Lactated Ringer's (Lr) 1,000 mls @ 100 mls/hr IVCONT .Q10H [facility] Last Admin: 02/06/22 10:41 Dose: 100 mls/hr Documented by: SLY Acetaminophen (Ofirmev) 1,000 mg in 100 mls @ 16.7 mls/hr IV .Q6H [facility] Last Admin: 02/06/22 14:28 Dose: 16.7 mls/hr Documented by: SID Losartan Potassium (Losartan Potassium 50 Mg Tablet) 100 mg PO DAILY [facility]; Protocol Metoclopramide HCl (Metoclopramide Hcl 10 Mg/2 Ml Vial) 10 mg IVPUSH Q6H PRN PRN Reason: Nausea Last Admin: 02/06/22 11:41 Dose: 10 mg Documented by: SLY Metoprolol Succinate (Metoprolol Succinate Er 50 Mg Tab.Er.24h) 50 mg PO DAILY [facility]; Protocol Ondansetron HCl (Ondansetron Hcl 4 Mg/2 Ml Vial) 4 mg IVPUSH Q8H [facility] Last Admin: 02/06/22 14:25 Dose: Not Given Documented by: SID Non-Admin Reason: given in or Sodium Chloride (0.9 % Sodium Chloride Flush 3 Ml Syringe) 3 ml IVFLUSH QSHIFT [facility] Last Admin: 02/06/22 14:31 Dose: Not Given Documented by: SID Non-Admin Reason: IV Running Labs CBC & Chem 7: 02/07/22 05:38 02/07/22 05:38 Labs: Laboratory Results - last 24 hr 02/06/22 10:20 Anion Gap 15 Estim Creat Clear Calc 109.4 Estimated GFR > 60 Random Glucose 135 H Calcium 8.9 D Procedures Date of Service Date of Service: 02/07/22 Progress Note: A&P Assessment and plan (1) S/P laparoscopic sleeve gastrectomy: Status: Acute Assessment and Plan: s/p laparoscopic sleeve gastrectomy and gastropexy Doing well Check am labs. If OK, will discharge home (2) Obesity: (3) BMI 39.0-39.9,adult: (4) Migraine: Status: Acute (5) Arthritis: Status: Acute (6) Obstructive sleep apnea on CPAP: Status: Acute (7) HTN (hypertension): Status: Acute (8) GERD (gastroesophageal reflux disease): Status: Acute (9) Vertigo: Status: Acute (10) Depression: Status: Acute (11) Bipolar 1 disorder: Status: Acute (12) Steatosis, liver: Status: Acute Time Spent With Patient Time: Total time spent is greater than 50% in coordination of care (as documented) at patient's floor/unit and/or counseling patient: Quality Stroke Does the patient have a stroke diagnosis?: No VTE Prior VTE?: No VTE Risk Level:: Surgical - moderate VTE Device Contraindication: N/A - Device Ordered VTE Drug Contraindication: Treatment Not Indicated
[2022-02-06] MEDS: HYDROmorphone HCl 0.5 MG/0.5 ML SYRINGE 0.25 MG IVPUSH (17:17)
[2022-02-06] MEDS: ondansetron HCL 4 MG/2 ML VIAL IVPUSH (21:04)
[2022-02-06] MEDS: 0.9 % Sodium Chloride Flush 3 ML SYRINGE IVFLUSH (21:05)
[2022-02-07 03:46] VITALS: BP 134/78; PULSE 81; RESP 15; TEMP 36.7; O2SAT 94
[2022-02-07] MEDS: ondansetron HCL 4 MG/2 ML VIAL IVPUSH (04:56)
[2022-02-07] MEDS: Lactated Ringers 1,000 ML 100 ML IVCONT (05:42)
[2022-02-07 06:20] LABS: MANUAL DIFF FLAG NO
[2022-02-07 06:24] LABS: Basophils Percent Auto 0.4 % (0-2); Eosinophils Percent Auto 0.1 % (0-4); Hematocrit 34.8 % (37.0-47.0); Hemoglobin 10.8 g/dl (12.0-16.0); Imm Gran Abs Auto 0.04 X10*3/uL (0.00-0.03); Imm Gran Pct Auto 0.4 % (0.0-0.4); Lymphocytes Percent Auto 8.8 % (20-40); Mean Platelet Volume 10.6 fL (9.4-12.3); Monocytes Absolute Auto 0.9 X10*3/uL (0.1-1.2); Monocytes Percent Auto 7.8 % (2-11); Neutrophils Absolute Auto 9.4 x10*3/uL (2.0-8.3); Neutrophils Percent Auto 82.5 % (45-73); Platelet Count 270 X10*3/uL (160-400); Red Cell Distribution Width 19.1 % (11.0-16.0); White Blood Count 11.3 X10*3/uL (4.8-10.8)
[2022-02-07 06:49] LABS: Anion Gap 14 (12-20); Blood Urea Nitrogen 8 mg/dL (9-16); Calcium 9.1 mg/dL (8.4-10.2); Carbon Dioxide 22 mmol/L (22-29); Chloride 106 mmol/L (96-108); Estimated Glomerular Filt Rate > 60; Glucose Random 89 mg/dL (60-115); Potassium 3.9 mmol/L (3.3-5.1); Sodium 138 mmol/L (135-145)
[2022-02-07] MEDS: DULoxetine HCl 60 MG CAPSULE.DR PO (07:10)
[2022-02-07] MEDS: Baclofen 20 MG TABLET PO (07:10)
[2022-02-07] MEDS: amLODIPine Besylate 10 MG TABLET PO (07:10)
[2022-02-07] MEDS: Famotidine/PF 20 MG/2 ML VIAL IVPUSH (07:10)
[2022-02-07] MEDS: Losartan Potassium 50 MG TABLET 100 MG PO (07:11)
[2022-02-07] MEDS: 0.9 % Sodium Chloride Flush 3 ML SYRINGE IVFLUSH (07:14)
[2022-02-07] MEDS: Metoprolol Succinate ER 50 MG TAB.ER.24H PO (07:16)
[2022-02-07 07:56] VITALS: BP 144/83; PULSE 77; RESP 16; TEMP 36.8; O2SAT 95
--- NOTE | 2022-02-07 09:25 | MHC.CM.PN ---
PATIENT IS INDEPENDENT WITH ALS. RELIES ON A CPAP AT NIGHT FOR TERESO FAMILY TO TRANSPORT. PLAN IS HOME - SELF CARE PATIENT OFFERED A HCP TO ASSIGN AN AGENT AND IS NOT INTERESTED AT THIS TIME.
--- NOTE | 2022-02-07 10:56 | HO.POSTANES ---
Post Anesthesia Evaluation Post Anesthesia Evaluation Vital Signs: Vital Signs Temp Pulse Resp BP Pulse Ox 02/07/22 07:56 98.2 F 77 16 144/83 H 95 02/07/22 03:46 98.1 F 81 15 134/78 94 02/06/22 23:25 98.5 F 75 16 144/77 H 95 Anesthesia: General Endotracheal-GETA Mental Status: Awake Pain Control: Satisfactory Nausea/Vomiting: None Hydration: Adequate Anesthesia-Related Issues: No Anes. Related Issues
== END 2022-02-07 09:35 | disposition home or self-care (01) | DRG 403 ==
LOC: HO.SSSA 10:22 → HO.S3 12:18
PROVIDERS: Physician Assistant; Physician Assistant Surgical; Admitting Provider Surgery; PCP Internal Medicine; Visit Provider Surgery
PROC: 0DB64Z3 Excision of Stomach, Percutaneous Endoscopic Approach, Vertical (ICD-10-PCS; CPT 43845; principal; 2022-02-06 07:30)
DX: E66.01 Morbid (severe) obesity due to excess calories (principal); K76.0 Fatty (change of) liver, not elsewhere classified; F31.9 Bipolar disorder, unspecified; G43.909 Migraine, unspecified, not intractable, without status migrainosus; I10 Essential (primary) hypertension; K21.9 Gastro-esophageal reflux disease without esophagitis; M79.7 Fibromyalgia; Z20.822 Contact with and (suspected) exposure to COVID-19; Z68.39 Body mass index [BMI] 39.0-39.9, adult; G47.33 Obstructive sleep apnea (adult) (pediatric); F41.9 Anxiety disorder, unspecified; G47.00 Insomnia, unspecified; R42 Dizziness and giddiness; Z98.51 Tubal ligation status; Z79.899 Other long term (current) drug therapy
CPT/HCPCS: 36415; 80048; 80053; 80061; 83036; 83525; 84443; 85014; 85018; 85025; 85610; 85730; 86140; 86850; 86900; 86901; 87635; 88307; 88342; 94660; 99024; A4649; C9399; J0131; J0690; J1100; J1170; J2250; J2405; J2550; J2765; J3010

== ENCOUNTER → 2022-02-14 13:42 | Outpatient (BNVA) | payer MEDICAID, SELFPAY | PROVIDERS: PCP Internal Medicine; Referring Provider Internal Medicine; Visit Provider Physician Assistant | DX: Z48.815 Encounter for surgical aftercare following surgery on the digestive system (principal); E66.9 Obesity, unspecified; Z68.36 Body mass index [BMI] 36.0-36.9, adult; Z98.84 Bariatric surgery status | CPT/HCPCS: 99212 ==

== ENCOUNTER → 2023-02-11 13:32 | Outpatient (BNVA) | payer MEDICAID, SELFPAY | PROVIDERS: PCP Internal Medicine; Referring Provider Internal Medicine; Visit Provider Physician Assistant Surgical | DX: E66.3 Overweight (principal); L98.7 Excessive and redundant skin and subcutaneous tissue; Z98.84 Bariatric surgery status; Z68.29 Body mass index [BMI] 29.0-29.9, adult | CPT/HCPCS: 99212 ==

== ENCOUNTER 2023-04-17 14:27 | Outpatient (REF) | payer MEDICAID, SELFPAY ==
--- NOTE | ~2023-04-17 | US_ITS ---
EXAMINATION: US PELVIS CLINICAL INFORMATION: Irregular menstruation. COMPARISON: 06/25/2019. TECHNIQUE: Ultrasound of the pelvis is performed using both transabdominal and transvaginal transducers along with Doppler. Transvaginal imaging is performed due to inadequate visualization transabdominally. FINDINGS: The uterus is heterogeneous and measures 10.5 x 5.8 x 5.7 cm and anteverted. No discrete fibroids are identified. Trace amount of free fluid in the cervix. Nabothian cysts are present. The endometrial thickness is 0.9 cm. Possible endometrial polyp at the level of the lower uterine segment measures 2.0 x 0.9 x 1.3 cm. The left ovary is seen only on transabdominal ultrasound images and measures 2.3 x 2.7 x 2.4 cm, volume 7.8 mL. The right ovary measures 2.8 x 2.3 x 2.4 cm, volume 8.1 mL. Visualization of bilateral ovaries is limited due to bowel gas. Bilateral ovaries are grossly unremarkable. US/US pelvic and transvaginal IMPRESSION: Possible 2.0 cm endometrial polyp. Gynecologic consultation and possible biopsy recommended. Recommend followup ultrasound in 6-8 weeks.
== END 2023-04-17 14:28 | disposition home or self-care (01) ==
LOC: HO.US 14:27
PROVIDERS: PCP Internal Medicine; Visit Provider Internal Medicine
DX: N92.6 Irregular menstruation, unspecified (principal)
CPT/HCPCS: 76830; 76856

== ENCOUNTER 2023-05-01 18:44 | Outpatient (REF) | payer MEDICAID, SELFPAY ==
[2023-05-10 03:14] LABS: HPV mRNA E6/E7 rflx Not Detected (Not Detected)
== END 2023-05-01 18:45 | disposition home or self-care (01) ==
LOC: HO.HHCLNP 18:44
PROVIDERS: Visit Provider Advanced Practice Midwife
DX: Z12.4 Encounter for screening for malignant neoplasm of cervix (principal); Z11.51 Encounter for screening for human papillomavirus (HPV)
CPT/HCPCS: 87624; 88142

== ENCOUNTER 2023-06-04 13:22 | Outpatient (AMB) | payer MEDICAID, SELFPAY ==
--- NOTE | 2023-06-04 13:26 | MHC.OFFVISWM ---
Intake VS Expanded 06/04/23 13:35 Height 5 ft 2 in Weight 165 lb 3.2 oz BMI 30.2 BP 106/61 Blood Pressure Location Lt brachial Blood Pressure Position Sitting Pulse 72 Pulse Source Pulse Oximeter Temp 98.2 F Temperature Source Temporal Artery Scan Pulse Oximetry 95 Oxygen Delivery Method Room Air Body Fat 48.0 Body Fat Percentage 29.1 Free Fat Mass 117.0 Muscle Mass 111.2 Visceral Mass 5.0 Water Mass 83.6 BMR 1,570 Intake Visit Reasons: (OV) PO LSG 02/06/2022 Intake Note: Patient is seen in office for post op assessment post LSG on 02/06/22. Accompanied by: Self / Same As Patient Allergies No Known Allergies Allergy (Verified 06/04/23 13:39) Medication List - Last Reconciled 06/04/23 by KAREN Knowles-Elmer cholecalciferol (vitamin D3) (Vitamin D3) 25 mcg PO DAILY clotrimazole 1% 1 appl topical BID duloxetine 60 mg PO DAILY ferrous sulfate (FeroSul) 325 mg PO DAILY hydralazine 25 mg PO TID hydrochlorothiazide 25 mg PO DAILY losartan 100 mg PO DAILY meclizine 50 mg PO BID PRN metoprolol succinate ER 50 mg PO DAILY multivitamin 1 tab PO DAILY prazosin 3 mg PO BEDTIME PRN trazodone 100 mg PO BEDTIME PRN vitamin B complex (B Complex-Vitamin B12 tablet) 1 tab PO DAILY HPI HPI Comments History of Present Illness Details Pt is now 2 year and 3 months s/p LSG. Still struggling with desires chocolate when anxious - eats chocolate. Sees gy now for menstrual irregularities and uterine polyp. Has follow up with them later this month. Goal weigh of 150 lbs. 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 8am - 2 eggs with onions, pepper. water. sometimes coffee with sweetened almond milk 12:30 pm - potatoes, eggs, with presley or ham. 18 grams protein water 4pm - 3 oz meat and 4 oz vegetables - feels full Exercise - M - f = 1 hour treadmill - 500 calories, speed 2.8 and incline of 10. 9 [place].min [facility] Medical History (Updated 02/11/23 @ 14:24 by KAREN Meade) Anemia Arthritis Bipolar 1 disorder BMI 38.0-38.9,adult BMI 39.0-39.9,adult Depression Excessive daytime sleepiness Fibromyalgia GERD (gastroesophageal reflux disease) H. pylori infection HTN (hypertension) Migraine Morbid obesity Obesity Obstructive sleep apnea on CPAP Sleep apnea Steatosis, liver Vertigo Vitamin A deficiency Surgical History Hx of section Hx of tubal ligation S/P laparoscopic sleeve gastrectomy Family History Mother Hypertension Heart problem Arthritis Diabetes Pacemaker Father Vitiligo Sister No problems noted. Sister No problems noted. Sister No problems noted. Sister No problems noted. Sister No problems noted. Brother No problems noted. Brother No problems noted. Son No problems noted. Son No problems noted. Social History Household Members: Spouse and Children Are you a primary infant childcare provider to a significant other at home: No Do you presently have visiting nurse or other home services: No Alcohol intake: current Alcohol intake frequency: does not drink Patient Tobacco Use Status: Never used Tobacco service: No Current occupational status: disabled Assessment & Plan Assessment & Plan (1) Overweight: Code(s): E66.3 - Overweight Plan: Needs 75 grams protien per day. Breakfast - 2 eggs with reduced fat cheese or turkey ham lunch 4 oz/3oz dinner - 4 oz/4oz Treadmill- 4 d/wk speed 3.0, incline - 3- 12 - 11 ang[place] /min . MM 3d/week Goal of 1.5 lbs per week, with goal of 150 lbs. Next appt with me in 3 months. Patient is not considered stable at this time. I spent 30 minutes in total with patient reviewing/updating records, examining the patient and counseling the patient on weight management as detailed above. (2) S/P laparoscopic sleeve gastrectomy: Comment: 02/07/22 Code(s): Z98.84 - Bariatric surgery status Coding Level of Care Code Est Pt Level 4 (34620) Diagnoses Overweight E66.3 S/P laparoscopic sleeve gastrectomy Z98.84
[2023-06-04 13:35] VITALS: BP 106/61; PULSE 72; TEMP 36.8; O2SAT 95; BMI 30.2
== END 2023-06-04 14:07 | disposition home or self-care (01) ==
PROVIDERS: PCP Nurse Practitioner Family; Visit Provider Physician Assistant
DX: E66.3 Overweight (principal); Z98.84 Bariatric surgery status
CPT/HCPCS: 99214

== ENCOUNTER → 2023-06-04 13:22 | Outpatient (BNVA) | payer MEDICAID, SELFPAY | PROVIDERS: PCP Nurse Practitioner Family; Visit Provider Physician Assistant | DX: E66.3 Overweight (principal); Z98.84 Bariatric surgery status; Z68.30 Body mass index [BMI] 30.0-30.9, adult | CPT/HCPCS: 99212 ==

== ENCOUNTER 2023-06-17 14:30 | Outpatient (AMB) | payer MEDICAID, SELFPAY ==
--- NOTE | 2023-06-17 14:48 | MHC.OFFVIS ---
Intake Vital Signs 06/17/23 14:49 Height 5 ft 2 in Weight 163 lb 2.273 oz BMI 29.8 BP 122/72 Intake Visit Reasons: Irregular periods /PCP referral Intake Note: c/o of irregular periods x 4 months Route Salesperson Required: Yes Route Salesperson Language: Mainspring Strip Gauger Name: Paradise MARQUES Information Interpreted: non-clinical & clinical Tableau Analyst: Tableau Analyst Present (Paradise MARQUES) Accompanied by: Self / Same As Patient Allergies No Known Allergies Allergy (Verified 06/17/23 14:54) Is last menstrual period known: Yes Last menstrual period: 06/09/23 HPI HPI Comments History of Present Illness Details Referred from PCP regarding heavy menstrual irregular menstrual cycles associated with passage of blood clots and pelvic cramping. Last co testing was in 05/21 was negative Last ultrasound was done in 04/20 which showed the following: The uterus is heterogeneous and measures 10.5 x 5.8 x 5.7 cm and anteverted. No discrete fibroids are identified. Trace amount of free fluid in the cervix. Nabothian cysts are present. The endometrial thickness is 0.9 cm. Possible endometrial polyp at the level of the lower uterine segment measures 2.0 x 0.9 x 1.3 cm. The left ovary is seen only on transabdominal ultrasound images and measures 2.3 x 2.7 x 2.4 cm, volume 7.8 mL. The right ovary measures 2.8 x 2.3 x 2.4 cm, volume 8.1 mL. Visualization of bilateral ovaries is limited due to bowel gas. Bilateral ovaries are grossly unremarkable. [facility] Medical History (Updated 06/17/23 @ 14:57 by Shun Nelson MD) Steatosis, liver BMI 38.0-38.9,adult BMI 39.0-39.9,adult Obesity Vitamin A deficiency H. pylori infection GERD (gastroesophageal reflux disease) Obstructive sleep apnea on CPAP Morbid obesity Excessive daytime sleepiness Anemia Bipolar 1 disorder Depression Arthritis Migraine Fibromyalgia Sleep apnea Vertigo HTN (hypertension) Surgical History Hx of section Hx of tubal ligation S/P laparoscopic sleeve gastrectomy Family History Mother Hypertension Heart problem Arthritis Diabetes Pacemaker Father Vitiligo Sister No problems noted. Sister No problems noted. Sister No problems noted. Sister No problems noted. Sister No problems noted. Brother No problems noted. Brother No problems noted. Son No problems noted. Son No problems noted. Social History Household Members: Spouse and Children Are you a primary career guidance counselor to a significant other at home: No Do you presently have visiting nurse or other home services: No Alcohol intake: current Alcohol intake frequency: does not drink Patient Tobacco Use Status: Never used Tobacco service: No Current occupational status: disabled Female Reproductive History Menstrual Date of last menstrual period: 06/09/23 control method: permanent sterilization Total pregnancies: 2 Full term: 2 Number of Living Children: 2 Review of Systems Const All systems reviewed & are unremarkable except as noted in HPI and below Card Reports as per HPI Resp Reports as per HPI GI Reports as per HPI and Reports no additional complaints Reports as per HPI Physical Exam Vital Signs: Last Vital Signs BP 122/72 06/17/23 14:49 BMI result Body Mass Index 29.8 Const General: cooperative, healthy appearing and comfortable Chest Chest palpation & inspection: normal inspection of the chest and normal palpation of entire chest wall Breast/axilla inspection: normal inspection of the breasts and normal inspection of the axillae Breast/axilla palpation: normal palpation of the breasts, normal palpation of the axillae and no axillary lymphadenopathy Resp Effort & Inspection: normal respiratory effort Auscultation: clear to auscultation bilaterally Percussion: percussion normal Cardio Palpation: normal PMI Rate: regular rate Rhythm: regular rhythm Heart sounds: no murmurs and no rubs Peripheral pulses: Peripheral pulses 2+ throughout GI Inspection: Yes normal to inspection Palpation (GI): Soft to palpation, nontender, no guarding, not rigid and No hepatosplenomegaly present Percussion: Yes normal to percussion Auscultation: normal bowel sounds Rectal Exam - Female: deferred General: Yes bladder normal to palpation External Female Exam: No lesion Speculum Exam - Vagina: normal appearance of the vagina, normal palpation, normal vaginal discharge and not erythematous Speculum Exam - Cervix: normal appearance of the cervix and normal palpation Bimanual exam- vagina & uterus: normal bimanual exam, normal palpation, uterine size normal, bladder normal to palpation, consistency normal and normal palpation Bimanual Exam- Adnexa, other: normal adnexae, no masses and no tenderness Results AMB Test Urine AMB Test Urine Negative Last Edit by Paradise Jarvis CMA on 06/17/23 15:00 Results Reviewed Results Reviewed: Laboratory Last Values Tst Clinic Negative 06/17/23 14:59 Assessment & Plan Assessment & Plan (1) Abnormal uterine bleeding (AUB): Comment: Endometrial polyp by ultrasound Code(s): N93.9 - Abnormal uterine and vaginal bleeding, unspecified Plan: Co testing recently done; GC and chlamydia taken CBC, TSH, HCG, screening mammogram and pelvic ultrasound ordered. Discussed with the patient the different causes of abnormal bleeding including thyroid disorders, uterine and ovarian pathology, endometrial hyperplasia, carcinoma and other potential causes. Discussed with the patient the work up including CBC (to r/o anemia), TSH, pelvic Ultrasound (done and showed endometrial polyp), endometrial sampling to r/o endometrial pathology with hysteroscopy D&C possible polypectomy/myomectomy since cyst endometrial polyp was seen on pelvic ultrasound. All questions answered and the patient verbalized understanding. (2) Endometrial polyp: Code(s): N84.0 - Polyp of corpus uteri Plan: Discussed with the patient the results of ultrasound showing endometrial polyp, recommended hysteroscopy D&C possible polypectomy/myomectomy. Discussed with the patient the procedure , all benefits and risks including but not limited to inability to complete the procedure , bleeding, infection, possible need for blood transfusion with all its risk ( HIV,syphilis, Hepatitis, anaphylaxis shock, others..), injury to bladder, rectum, possible need for laparoscopy/laparotomy or hysterectomy. The patient verbalized understanding and signed the consent. Instructions given the patient to schedule a 2 week postoperative appointment Orders: Orders Complete Blood Count no Diff Today N93.9 - Abnormal uterine and vaginal bleeding, unspecified MM screening mammo BI Today Z12.31 - Encounter for screening mammogram for malignant neoplasm of breast AMB HCG Urine Test Today Z32.02 - Encounter for test, result negative Prolactin Today N93.9 - Abnormal uterine and vaginal bleeding, unspecified TSH reflex Free T4 Today N93.9 - Abnormal uterine and vaginal bleeding, unspecified US pelvic and transvaginal Today N93.9 - Abnormal uterine and vaginal bleeding, unspecified HCG Quantitative Today N93.9 - Abnormal uterine and vaginal bleeding, unspecified Coding Level of Care Code New Pt Level 3 (78826) Diagnoses Abnormal uterine bleeding (AUB) N93.9 Endometrial polyp N84.0
[2023-06-17 14:49] VITALS: BP 122/72; BMI 29.8
== END 2023-06-17 15:57 | disposition home or self-care (01) ==
PROVIDERS: PCP Internal Medicine; Visit Provider Obstetrics & Gynecology
DX: N93.9 Abnormal uterine and vaginal bleeding, unspecified (principal); N84.0 Polyp of corpus uteri; Z32.02 Encounter for pregnancy test, result negative
CPT/HCPCS: 99203

== ENCOUNTER 2023-06-17 14:30 | Outpatient (REF) | payer MEDICAID, SELFPAY | END 2023-06-17 14:31 | disposition home or self-care (01) | LOC: HO.LNP 14:30 | PROVIDERS: PCP Internal Medicine; Visit Provider Obstetrics & Gynecology | DX: N93.9 Abnormal uterine and vaginal bleeding, unspecified (principal); N84.0 Polyp of corpus uteri; Z32.02 Encounter for pregnancy test, result negative | CPT/HCPCS: 81025 ==

== ENCOUNTER 2023-06-17 15:30 | Outpatient (REF) | payer MEDICAID, SELFPAY ==
[2023-06-17 16:22] LABS: Hematocrit 40.5 % (37.0-47.0); Hemoglobin 13.1 g/dl (12.0-16.0); Mean Corpuscular HGB Conc 32.3 g/dl (31.0-35.0); Mean Corpuscular Hemoglobin 27.3 pg (27.0-33.0); Mean Corpuscular Volume 84.4 fL (80.0-98.0); Mean Platelet Volume 10.3 fL (9.4-12.3); Platelet Count 228 X10*3/uL (160-400); Red Cell Distribution Width 14.1 % (11.0-16.0)
[2023-06-17 17:05] LABS: HCG Quantitative < 2 mIU/mL; TSH reflex Free T4 2.26 uIU/mL (0.32-4.0)
[2023-06-17 17:54] LABS: CT PCR NOT DETECTED (Not Detect.); NG PCR NOT DETECTED (Not Detect.)
== END 2023-06-17 15:31 | disposition home or self-care (01) ==
LOC: HO.LAB 15:30
PROVIDERS: PCP Internal Medicine; Visit Provider Obstetrics & Gynecology
DX: N93.9 Abnormal uterine and vaginal bleeding, unspecified (principal)
CPT/HCPCS: 0353U; 84146; 84443; 84702; 85027

== ENCOUNTER 2023-06-21 09:33 | Outpatient (REF) | payer MEDICAID, SELFPAY ==
[2023-06-21 10:15] LABS: MANUAL DIFF FLAG NO
[2023-06-21 10:54] LABS: Basophils Absolute Auto 0.1 X10*3/uL (0.0-0.2); Eosinophils Absolute Auto 0.1 X10*3/uL (0.0-0.4); Eosinophils Percent Auto 1.2 % (0-4); Hematocrit 38.7 % (37.0-47.0); Hemoglobin 12.4 g/dl (12.0-16.0); Imm Gran Abs Auto 0.01 X10*3/uL (0.00-0.03); Imm Gran Pct Auto 0.2 % (0.0-0.4); Lymphocytes Absolute Auto 1.1 X10*3/uL (1.2-4.9); Lymphocytes Percent Auto 23.2 % (20-40); Mean Corpuscular Hemoglobin 26.2 pg (27.0-33.0); Mean Corpuscular Volume 81.8 fL (80.0-98.0); Mean Platelet Volume 10.3 fL (9.4-12.3); Monocytes Absolute Auto 0.5 X10*3/uL (0.1-1.2); Monocytes Percent Auto 9.6 % (2-11); Neutrophils Absolute Auto 3.2 x10*3/uL (2.0-8.3); Neutrophils Percent Auto 64.8 % (45-73); Platelet Count 215 X10*3/uL (160-400); Red Blood Count 4.73 X10*6/uL (4.20-5.50); Red Cell Distribution Width 13.8 % (11.0-16.0); White Blood Count 4.9 X10*3/uL (4.8-10.8)
[2023-06-21 11:09] LABS: Estimated Average Glucose 94 mg/dL; Hemoglobin A1c % 4.9 % (<6.0)
[2023-06-21 11:43] LABS: Alanine Aminotransferase 8 U/L (0-31); Albumin Level 3.7 g/dL (3.5-5.0); Alkaline Phosphatase 48 U/L (39-117); Anion Gap 14 (12-20); Aspartate Amino Transferase 12 U/L (5-31); Bilirubin Total 0.6 mg/dL (0.0-1.0); Blood Urea Nitrogen 11 mg/dL (9-16); C Reactive Protein < 0.04 mg/dL (< or = 0.50); Carbon Dioxide 24 mmol/L (22-29); Chloride 106 mmol/L (96-108); Cholesterol 169 mg/dL (<200); Estimated Glomerular Filt Rate > 60; Glucose Random 91 mg/dL (60-115); HDL Cholesterol 64 mg/dL (>40); Iron 64 mcg/dL (30-160); LDL Cholesterol Calculated 97 mg/dL (<100); Percent Iron Saturation 24 % (15-50); Potassium 3.5 mmol/L (3.3-5.1); Sodium 140 mmol/L (135-145); Total Iron Binding Capacity 265 mcg/dL (228-428); Total Protein 6.7 g/dL (6.5-8.0); Triglycerides 40 mg/dL (<150); Unsaturated Iron Binding 201 ug/dL
[2023-06-21 11:59] LABS: Ferritin 26 ng/mL (10-250); Insulin 7 uU/mL (2-29); TSH reflex Free T4 1.21 uIU/mL (0.32-4.0); Vitamin D 25-OH Total 52.3 ng/mL (>30)
[2023-06-21 12:08] LABS: Folate 6.8 ng/mL (> or = 4.0); Vitamin B12 813 pg/mL (200-900)
[2023-06-23 00:44] LABS: Prolactin 10.6 ng/mL
[2023-06-23 14:38] LABS: Calcium (PTHI) 9.1 mg/dL (8.6-10.2); PTHI 29 pg/mL (16-77)
[2023-06-24 13:49] LABS: Zinc 70 mcg/dL (60-130)
[2023-06-26 22:59] LABS: Vitamin A 45 mcg/dL (38-98)
[2023-06-27 17:13] LABS: Vitamin B1 32 nmol/L (8-30)
== END 2023-06-21 09:34 | disposition home or self-care (01) ==
LOC: HO.LAB 09:33
PROVIDERS: Absent Provider Physician Assistant Surgical; PCP Internal Medicine; Visit Provider Obstetrics & Gynecology
DX: N93.9 Abnormal uterine and vaginal bleeding, unspecified (principal); Z98.84 Bariatric surgery status
CPT/HCPCS: 36415; 80053; 80061; 82306; 82607; 82728; 82746; 83036; 83525; 83540; 83970; 84146; 84425; 84443; 84590; 84630; 85025; 86140

== ENCOUNTER 2023-07-04 07:29 | Day surgery (SDC) | payer MEDICAID, SELFPAY ==
[2023-07-02 08:07] VITALS: BMI 29.8
[2023-07-04 08:06] VITALS: BP 125/69; PULSE 74; RESP 18; TEMP 36.7; O2SAT 97
--- NOTE | 2023-07-04 08:37 | HO.ANESPROP2 ---
[facility] Active Problems Active Problems: All Active Problems (Updated 06/17/23 @ 14:57 by Shun Nelson MD) Endometrial polyp (Acute) Abnormal uterine bleeding (AUB) (Acute) Excess skin (Acute) Overweight (Acute) Constipation (Acute) Obesity (Acute) S/P laparoscopic sleeve gastrectomy (Acute) Steatosis, liver (Acute) Restless leg syndrome (Acute) Bipolar 1 disorder (Acute) Depression (Acute) Vertigo (Acute) GERD (gastroesophageal reflux disease) (Acute) HTN (hypertension) (Acute) Obstructive sleep apnea on CPAP (Acute) Arthritis (Acute) Morbid obesity (Acute) Migraine (Acute) Past Medical History Medical History Steatosis, liver BMI 38.0-38.9,adult BMI 39.0-39.9,adult Obesity Vitamin A deficiency H. pylori infection GERD (gastroesophageal reflux disease) Obstructive sleep apnea on CPAP Morbid obesity Excessive daytime sleepiness Anemia Bipolar 1 disorder Depression Arthritis Migraine Fibromyalgia Sleep apnea Vertigo HTN (hypertension) Family History Family History Mother Hypertension Heart problem Arthritis Diabetes Pacemaker Father Vitiligo Sister No problems noted. Sister No problems noted. Sister No problems noted. Sister No problems noted. Sister No problems noted. Brother No problems noted. Brother No problems noted. Son No problems noted. Son No problems noted. Family history of problems with anesthesia: No Surgical History Surgical History S/P laparoscopic sleeve gastrectomy Hx of tubal ligation Hx of section History of Problems with Anesthesia: Yes Social History Social History Household Members: Spouse and Children Are you a primary chiropractic care to a significant other at home: No Do you presently have visiting nurse or other home services: No Alcohol intake: current Alcohol intake frequency: does not drink Patient Tobacco Use Status: Never used Tobacco Are you DNR?: No Advance Directives: No Advance Directives Information Provided: Yes Nutrition Risks: No Nutritional Risk FDLMP: 06/27/23 service: No Current occupational status: disabled Meds Allergies Allergy/AdvReac Type Severity Reaction Status Date / Time No Known Allergies Allergy Verified 07/04/23 07:45 Active Medications: Current Medications Lactated Ringer's (Lr) 1,000 mls @ 80 mls/hr IVCONT .[id number] [facility] Last Admin: 07/04/23 07:59 Dose: 80 mls/hr Home Medications Medication Instructions Recorded Confirmed Last Taken Type duloxetine 60 mg capsule,delayed 60 mg PO DAILY 11/06/21 07/04/23 Unknown History release meclizine 25 mg tablet 50 mg PO BID PRN Vertigo 11/06/21 07/04/23 Unknown History metoprolol succinate 50 mg 50 mg PO DAILY 11/06/21 07/04/23 07/04/23 History tablet,extended release 24 hr trazodone 100 mg tablet 100 mg PO BEDTIME PRN insomnia 11/06/21 07/04/23 Unknown History cholecalciferol (vitamin D3) 25 25 mcg PO DAILY 02/11/23 07/04/23 Unknown History mcg (1,000 unit) capsule (Vitamin D3) ferrous sulfate 325 mg (65 mg 325 mg PO DAILY 02/11/23 07/04/23 Unknown History iron) tablet (FeroSul) hydralazine 25 mg tablet 25 mg PO TID 02/11/23 07/04/23 Unknown History hydrochlorothiazide 25 mg tablet 25 mg PO DAILY 02/11/23 07/04/23 Unknown History losartan 100 mg tablet 100 mg PO DAILY 02/11/23 07/04/23 07/04/23 History multivitamin 1 tab PO DAILY 02/11/23 07/04/23 Unknown History prazosin 1 mg capsule 3 mg PO BEDTIME PRN as needed 02/11/23 07/04/23 Unknown History vitamin B complex (B 1 tab PO DAILY 02/11/23 07/04/23 Unknown History Complex-Vitamin B12 tablet) amlodipine 10 mg tablet 10 mg PO DAILY 06/17/23 07/04/23 07/04/23 History Exam Exam Date and Time: July 04, 2023 0837 Height,Weight and Vital Signs: Height 5 ft 2 in Weight 73.936 kg Last Vital Signs Temp 98.0 F 07/04/23 08:06 Pulse 74 07/04/23 08:06 Resp 18 07/04/23 08:06 BP 125/69 07/04/23 08:06 Pulse Ox 97 07/04/23 08:06 O2 Del Method Room Air 07/04/23 08:06 Pertinent Lab Results Pertinent Lab Results: Laboratory Tests 07/04/23 08:00 Urine Test NEGATIVE Airway Mallampati Class: II TM Dist: >3cm Neck ROM: Full Heart: rrr Lungs: cta Assessment and Plan Assessment Anesthesia Assessment: Anesthesia Plan Discussed and Chart Reviewed Final Anesthetic Review Family History of Problems with Anesthesia: No History of Problems with Anesthesia: Yes NPO: Yes ASA Class: III Final Preanesthetic Review: No Changes in Pt Med Stat, Meds/Allgs Chart Reviewed and Consent Obtained/Reviewed Patient Risk: Intermediate Procedure Risk: Intermediate Anesthetic Plan Anesthetic Plan: GA Disposition: Standard PACU
--- NOTE | 2023-07-04 09:10 | MHC.SHP ---
Pre-Procedural Eval Section A Date of Service: 07/04/23 The patient is an INPATIENT: No Changes since office visit: No Cold of Flu in the past 2 weeks, No New Medical Problems, No Changes in Medication and No Patient answered all questions The History & Physical has been completed within 30 days and I have reviewed it.: Yes Section B Chief Complaint: Abnormal uterine and vaginal bleeding, unspecified Allergies: Allergies Allergy/AdvReac Type Severity Reaction Status Date / Time No Known Allergies Allergy Verified 07/04/23 07:45 Plan Diagnosis/Plan: Unchanged I have reviewed the history and physical and performed a pertinent physical examination on my patient. No changes have occurred unless specified. Time Spent With Patient Time: Total time managing care of this patient today ____ minutes.
--- NOTE | 2023-07-04 10:02 | PM.OP ---
Brief Operative Note Date of Service: 07/04/23 Pre-op diagnosis: Abnormal uterine bleeding, endometrial polyp by ultrasound Post-op diagnosis: same Procedure: Hysteroscopy D&C, Polypectomy Surgeon: Shun Nelson MD Anesthesia: GLMA Was an Lead Die Molder used for this Procedure?: No Estimated blood loss (mL): 0 Pathology: other (Endometrial Scrapping. Polyp) Condition: stable Disposition: PACU
--- NOTE | 2023-07-04 10:02 | W.PM.OPN ---
Operative Note Operative Note Date of Service: 07/04/23 Narrative: Preop Diagnosis: Abnormal uterine bleeding, Endometrial polyp by US Operation: Diagnostic Hysteroscopy, Dilataion & Curettage and polypectomy Post Op Diagnosis: Endometrial Polyp QBL: Minimal Anesthesia: GLMA Surgeon: Shun Nelson MD Event Planning Intern: None Complication: None Pathology: Endometrial Scrapings, Endometrial polyp Procedure: The patient was put in the dorsal lithotomy position, scrubbed, and draped in the usual manner. A sterile speculum was inserted in the patient's vagina. The anterior lip of the cervix was grasped with a single tooth tenaculum. The cervix was dilated up to 5 mm, then the scope was inserted in the patient's uterus. Inspection revealed endometrial polyp. The Myosure Reach device was used; it was introduced through the operative channel and polypectomy done with no complications. The scope was then taken out from the uterine cavity, sharp curettings was carried on with minimal to moderate amount of tissues retrieved. At the end of the procedure, all instruments were taken out of the patient uterine and vaginal cavity. The single tooth tenaculum was removed and homeostasis was assured using pressure,. The patient tolerated the procedure well and was transferred to the PACU in a stable condition.
[2023-07-04 10:12] VITALS: BP 152/85; PULSE 77; RESP 14; TEMP 36.8; O2SAT 94
[2023-07-04 10:17] VITALS: BP 133/78; PULSE 63; RESP 16; O2SAT 96
[2023-07-04 10:22] VITALS: BP 135/83; PULSE 60; RESP 16; O2SAT 96
[2023-07-04 10:27] VITALS: BP 119/72; PULSE 63; RESP 16; TEMP 36.6; O2SAT 96
[2023-07-04 10:42] VITALS: BP 113/70; PULSE 633; RESP 18; TEMP 36.6; O2SAT 96
== END 2023-07-04 11:25 | disposition home or self-care (01) ==
PROVIDERS: PCP Internal Medicine; Visit Provider Obstetrics & Gynecology
PROC: 0UDB8ZZ Extraction of Endometrium, Via Natural or Artificial Opening Endoscopic (ICD-10-PCS; CPT 58558; principal; 2023-07-04 09:30)
DX: N93.9 Abnormal uterine and vaginal bleeding, unspecified (principal); N84.0 Polyp of corpus uteri; Z98.51 Tubal ligation status; D64.9 Anemia, unspecified; I10 Essential (primary) hypertension; M79.7 Fibromyalgia; K76.0 Fatty (change of) liver, not elsewhere classified; K21.9 Gastro-esophageal reflux disease without esophagitis; E66.01 Morbid (severe) obesity due to excess calories; Z68.29 Body mass index [BMI] 29.0-29.9, adult; G47.33 Obstructive sleep apnea (adult) (pediatric); Z99.89 Dependence on other enabling machines and devices; Z79.899 Other long term (current) drug therapy; Z98.84 Bariatric surgery status
CPT/HCPCS: 58558; 81025; 88305; J3010

== ENCOUNTER → 2023-07-04 07:29 | Outpatient (BNV) | payer MEDICAID, SELFPAY | PROVIDERS: PCP Internal Medicine; Visit Provider Obstetrics & Gynecology | DX: N93.9 Abnormal uterine and vaginal bleeding, unspecified (principal) | CPT/HCPCS: 58558 ==

== ENCOUNTER 2023-07-22 10:58 | Outpatient (REF) | payer MEDICAID, SELFPAY | END 2023-07-22 10:59 | disposition home or self-care (01) | LOC: HO.US 10:58 | PROVIDERS: PCP Internal Medicine; Visit Provider Obstetrics & Gynecology | DX: Z13.89 Encounter for screening for other disorder (principal) ==

== ENCOUNTER 2023-07-25 13:45 | Outpatient (REF) | payer MEDICAID, SELFPAY ==
--- NOTE | ~2023-07-25 | MM_ITS ---
EXAMINATION: MM SCREENING DIGITAL BREAST TOMOSYNTHESIS, BILATERAL CLINICAL INFORMATION: Screening. Asymptomatic. COMPARISON: Mammography: There are no prior mammograms for comparison. This study is a baseline examination. TECHNIQUE: Digital breast tomosynthesis is performed in both the craniocaudal and mediolateral oblique views along with computer-aided detection (CAD). Synthesized 2D images are generated from the tomosynthesis. FINDINGS: The breasts are heterogeneously dense, which may obscure small masses (ACR BI-RADS breast composition Category c). There are no significant masses, abnormal calcifications, or other abnormalities. MM/MM tomosynthesis screening BI IMPRESSION: No mammographic evidence of malignancy. ASSESSMENT: BI-RADS BI-RADS 1 - Negative RECOMMENDATION: Routine annual mammography screening. 1 year F/U This examination should not preclude the clinical evaluation of a suspicious palpable abnormality. This patient's information was entered into a reminder system with a target due date for their next mammogram.
== END 2023-07-25 13:46 | disposition home or self-care (01) ==
LOC: HO.MAMMO 13:45
PROVIDERS: Absent Provider Obstetrics & Gynecology; PCP Internal Medicine; Visit Provider Advanced Practice Midwife
DX: Z12.31 Encounter for screening mammogram for malignant neoplasm of breast (principal)
CPT/HCPCS: 77063; 77067

== ENCOUNTER → 2023-07-25 15:00 | Outpatient (BNV) | payer MEDICAID, SELFPAY | PROVIDERS: Absent Provider Obstetrics & Gynecology; PCP Internal Medicine; Visit Provider Radiology Diagnostic Radiology | DX: Z12.31 Encounter for screening mammogram for malignant neoplasm of breast (principal) | CPT/HCPCS: 77063; 77067 ==

== ENCOUNTER 2023-08-12 13:36 | Outpatient (REF) | payer MEDICAID, SELFPAY ==
--- NOTE | ~2023-08-12 | US_ITS ---
EXAMINATION: US PELVIS CLINICAL INFORMATION: Abnormal uterine and vaginal bleeding COMPARISON: Previous pelvic ultrasound most recent March [address] June 2018 TECHNIQUE: Ultrasound of the pelvis is performed using both transabdominal and transvaginal transducers along with Doppler. Transvaginal imaging is performed due to inadequate visualization transabdominally. FINDINGS: The uterus is anteverted and measures 10 x 6 x 6 cm. Uterine echotexture is slightly heterogeneous. Endometrial thickness is normal measuring 1.1 cm. There is heterogeneous increased texture seen in the posterior body of the uterus adjacent to the endometrium. It is uncertain whether this is related to recent polypectomy or could represent adenomyosis. This is a new finding compared to prior exam March 2023 and postsurgical changes is favored. There are nabothian cysts in the cervix. The ovaries are normal. The right ovary measures 3.4 x 2.4 x 2 cm. The left ovary measures 3.2 x 1.7 x 2.3 cm. There is no fluid in the pelvis. US/US pelvic and transvaginal IMPRESSION: Normal thickness endometrium. Heterogeneous appearing uterus. Increased echotexture in the posterior uterine body Adjacent to the endometrium. It is uncertain whether this is related to patient's history of recent surgery or could represent adenomyosis. This could be better evaluated with pelvic MRI if clinically indicated.
== END 2023-08-12 13:37 | disposition home or self-care (01) ==
LOC: HO.US 13:36
PROVIDERS: PCP Internal Medicine; Visit Provider Obstetrics & Gynecology
DX: N93.9 Abnormal uterine and vaginal bleeding, unspecified (principal)
CPT/HCPCS: 76830; 76856

== ENCOUNTER 2023-08-18 13:24 | Outpatient (AMB) | payer MEDICAID, SELFPAY ==
--- NOTE | 2023-08-18 13:40 | A.OFFVIS_ITS ---
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 The following workup was done: H&H= 12.4/38.7 TSH, hCG, prolactin (initial test was 56 repeated was down to 10.6), GC and chlamydia were negative. Co testing was done was negative. Mammogram was BI-RADS 1. Pelvic ultrasound showed the following: The pathology showed the following: A. Endometrium, polypectomy: Fragments of endometrial polyp with focal squamous morules; no atypia identified. See comment. B. Endometrium, curettage: Proliferative endometrium; no atypia or hyperplasia identified. COMMENT: Squamous morular metaplasia carries a mildly increased risk of an endometrial cancer outcome (approximately 5%) and may resolve spontaneously. However, follow-up with a repeat endometrial sample in approximately 3-6 months is advised to exclude persistence, as clinically appropriate [facility] Medical History Steatosis, liver BMI 38.0-38.9,adult BMI 39.0-39.9,adult Obesity Vitamin A deficiency H. pylori infection GERD (gastroesophageal reflux disease) Obstructive sleep apnea on CPAP Morbid obesity Excessive daytime sleepiness Anemia Bipolar 1 disorder Depression Arthritis Migraine Fibromyalgia Sleep apnea Vertigo HTN (hypertension) Surgical History S/P laparoscopic sleeve gastrectomy Hx of tubal ligation Hx of section Family History Mother Hypertension Heart problem Arthritis Diabetes Pacemaker Father Vitiligo Sister No problems noted. Sister No problems noted. Sister No problems noted. Sister No problems noted. Sister No problems noted. Brother No problems noted. Brother No problems noted. Son No problems noted. Son No problems noted. Social History (Reviewed 08/18/23 @ 13:42 by LIZBETH Mendoza Household Members: Spouse and Children Are you a primary health care coach to a significant other at home: No Do you presently have visiting nurse or other home services: No Alcohol intake: current Alcohol intake frequency: does not drink Patient Tobacco Use Status: Never used Tobacco service: No Current occupational status: disabled Female Reproductive History Menstrual Date of last menstrual period: 08/12/23 control method: permanent sterilization Date of last pap smear: 05/02/23 (negative) Review of Systems Const All systems reviewed & are unremarkable except as noted in HPI and below Reports as per HPI and Reports no additional complaints GI Reports no additional complaints Reports no additional complaints Physical Exam Vital Signs: Last Vital Signs BP 114/70 08/18/23 13:41 BMI result Body Mass Index 29.6 Assessment & Plan Assessment & Plan (1) Abnormal uterine bleeding (AUB): Comment: Polyp with Squamous morules, increased risk of endometrial cancer Code(s): N93.9 - Abnormal uterine and vaginal bleeding, unspecified Plan: Discussed with the patient the pathology results showing fragments of endometrial polyp with focal squamous morules with no atypia, in addition to the risk of progression to endometrial cancer, the persistence and regression rate . Options of treatment discussed with the patient including hysterectomy with bilateral salpingectomy in case the patient is not interested in future fertility versus medical treatment including progesterone p.o. versus levonorgestrel IUD. Discussed with the patient both options; Advantage of surgical treatment is at it's curative with no risk of development into endometrial cancer with the risks of surgery and removing the option of future fertility. The option of Progesterone treatment either po or through an IUD has high rate of regression to normal endometrial of the time with risk of progression or relapse . Discussed with the patient that Risk of progression to endometrial carcinoma. In case of medical treatment EMB is will be performed every 3 months if there is evidence of progression or persistence the surgical treatment will be recommended. The pt decided to proceed with surgical management. will refer to box car washer onc for further management. All questions answered the patient verbalized understanding. Orders: Referrals Gynecologic Oncology Referral N93.9 - Abnormal uterine and vaginal bleeding, unspecified Coding Level of Care Code Est Pt Level 3 (05871) Diagnoses Abnormal uterine bleeding (AUB) N93.9
[2023-08-18 13:41] VITALS: BP 114/70; BMI 29.6
== END 2023-08-18 14:38 | disposition home or self-care (01) ==
PROVIDERS: PCP Internal Medicine; Visit Provider Obstetrics & Gynecology
DX: N93.9 Abnormal uterine and vaginal bleeding, unspecified (principal)
CPT/HCPCS: 99213

== ENCOUNTER → 2023-08-18 13:24 | Outpatient (BNVA) | payer MEDICAID, SELFPAY | PROVIDERS: PCP Internal Medicine; Visit Provider Obstetrics & Gynecology | DX: N93.9 Abnormal uterine and vaginal bleeding, unspecified (principal) | CPT/HCPCS: 99212 ==

== ENCOUNTER 2023-08-27 11:15 | Outpatient (AMB) | payer MEDICAID, SELFPAY ==
--- NOTE | 2023-08-27 11:29 | A.OFFWM_ITS ---
Intake Intake Visit Reasons: VIDEO PO LSG 02/06/2022 Allergies No Known Allergies Allergy (Verified 08/18/23 13:42) [facility] Medical History Steatosis, liver BMI 38.0-38.9,adult BMI 39.0-39.9,adult Obesity Vitamin A deficiency H. pylori infection GERD (gastroesophageal reflux disease) Obstructive sleep apnea on CPAP Morbid obesity Excessive daytime sleepiness Anemia Bipolar 1 disorder Depression Arthritis Migraine Fibromyalgia Sleep apnea Vertigo HTN (hypertension) Surgical History S/P laparoscopic sleeve gastrectomy Hx of tubal ligation Hx of section Family History Mother Hypertension Heart problem Arthritis Diabetes Pacemaker Father Vitiligo Sister No problems noted. Sister No problems noted. Sister No problems noted. Sister No problems noted. Sister No problems noted. Brother No problems noted. Brother No problems noted. Son No problems noted. Son No problems noted. Social History Household Members: Spouse and Children Are you a primary care taker to a significant other at home: No Do you presently have visiting nurse or other home services: No Alcohol intake: current Alcohol intake frequency: does not drink Patient Tobacco Use Status: Never used Tobacco service: No Current occupational status: disabled Behavioral Health Assessment Weight Management Therapy Therapy Notes Details Pt is a post-op client who has been referred to support by [facility]- provider, Phan. as PT reported she has been more anxious than usual and has been dealing with cravings for chocolate. Pt reports she has not been exercising and is not sleeping well as she is having bad dreams. Over the past months she is dealing with new medical issues causing her to feel worried. Pt reports having cravings for sweets and dealing with increased hunger. Today we completed initial assessment and identified some of her needs. We also did a mindfulness exercise to use when dealing with urges/cravings for food. Advised to use it even if doing well to gain some practice. Reviewed possible changes she would benefit from on her routine and request to increase visits with current therapist for increased anxiety. We will f/up in 2 weeks. Presenting Concerns Referral Source [facility] Provider. Reason for referral Increased anxiety and cravings for chocolate. Precipitating Event Weight gain. Gained over 7 Lbs in 3 months. Living Situation Current Living Situation Rent At risk of losing current housing? No Satisfied with current living situation? Yes Comments Pt lives with , and 19 y/o son. Food/Weight/Diet Expectations of change Target weight post-op: 150Lbs. History/Relationship with food Hx of emotional eating, eating when stressed, mainly candy/chocolate. History/Relationship with weight Pre-op weight was over 240Lbs History/Relationship with dieting Bariatric surgery last year. Meal provided by program. Binge Eating Do you frequently eat large amounts of food in short periods of time, not feeling physically hungry? No Do you feel out of control when you eat a large amount of food in a short period of time? No Do you eat large amounts of food rapidly and typically alone? No Night Eating Do you wake up at least once during the night to eat? No If you wake up in the night, do you find that it is necessary to eat something in order to fall back asleep? Yes Do you have little or no appetite in the morning and feel very hungry in the evening, often overeating between dinner and when you go to bed? No Social History Family history and relationship for about 20 years. She has 2 children, they are 24 and 19 y/o boys. She's close to her mother who lives 10 min away from her. She has 5 siblings from her father's side but has no relationship with them. She has more family but has no communication. 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 Developmental history and status None. Social support , mother and kids. Pt doesn't have friends. Only talks with her mother. Community support Providers. Taoist/Spirituality Raised as Buddhism but doesn't attend sikhism. Cultural/Ethnic information . Born in [place]. Legal Involvement and History Current or historical involvement with the legal system? None. Education Highest grade completed 12th grade. Preferred learning style Verbal Currently enrolled in educational program? No Interested in further educational program? No Employment Employment Status Unemployed (several years ago. ) Wants help to find employment? No Meaningful activities [employer], home chores. Financial Situation Describe current financial situation Comfortable and Occasional struggle Financial assistance? Food [place] and [employer] Service Service? No Mental Health and Addiction Treatment Current/Past substance abuse? No Current/Past addictive behavior concerns? No Psychiatric history PT attends therapy and psych tx at [facility]. Sees therapist every 2 weeks, and prescriber every 3 months. Diagnosed with anxiety and depression. . Never inpatient and/or in crisis for MH. Denies SA, admitted last year she had thoughts about jumping out of a bridge while driving by, denies any and/or other safety concerns with self-harm/other-harm. Medical and Physical Health Summary Additional Medical History not covered in history None Sexual History concerns None. Physical exam in the last year? Yes Pain Screening Current pain? Yes Pain in the last few months? Yes Comments Fibromialgya. Medications Is the patient compliant with medications? Yes Does the patient have Rollins Guardian in place? Not applicable Does the patient use complimentary health approaches? No Trauma/Abuse History History of trauma? No Questionnaires PHQ-9 Over the last 2 weeks, how often have you been bothered by any of the following problems? 1. Little interest or pleasure in doing things: nearly every day 2. Feeling down, depressed, or hopeless: nearly every day 3. Trouble falling or staying asleep, or sleeping too much: more than half the days 4. Feeling tired or having little energy: nearly every day 5. Poor appetite or overeating: nearly every day (Increased appetite.) 6. Feeling bad about yourself - or that you are a failure or have let yourself or your family down: nearly every day 7. Trouble concentrating on things, such as reading the newspaper or watching television: several days 8. Moving or speaking so slowly that other people could have noticed. Or the opposite - being so fidgety or restless that you have been moving around a lot more than usual: nearly every day (anxious) 9. Thoughts that you would be better off or of hurting yourself in some way: not at all Total score: 21 Depression Screening Interpretation: Positive Depression Screening Follow-up: Existing condition and Follow-up Visit Requested Depression Screening Done: Yes 14605 - PHQ-9 Billing: Yes Source: Developed by Drs. Jerrod Abrams, Yoko Rodriguez, Pipo Chavez and colleagues, with an educational shane from [employer]. Assessment & Plan Assessment & Plan (1) Adjustment disorder with mixed disturbance of emotions and conduct: Code(s): F43.25 - Adjustment disorder with mixed disturbance of emotions and conduct (2) Depression: Code(s): F32.A - Depression, unspecified (3) Anxiety disorder, unspecified: Code(s): F41.9 - Anxiety disorder, unspecified Plan Pt ill be seen again to provide support with emotional eating and other strategies for anxiety. f/up 09/11/2023 at 12pm - Telehealth. Telehealth Telehealth Location of provider rendering services: other Location of patient: address on file Patient Identification confirmed using: Name, : Yes Telehealth method: video Patient verbally consented to treatment: Yes Patient verbally consented to billing insurance company: Yes Patient informed of any privacy concerns related to visit: No Minutes spent on Phone/Video with Pt.: 50 Coding Level of Care Code New Pt Tele Psy Diag Eval (92936) Patient Type New Diagnoses Adjustment disorder with mixed disturbance of emotions and conduct F43.25 Depression F32.A Anxiety disorder, unspecified F41.9 Time Spent (min) 50
== END 2023-08-27 12:00 | disposition home or self-care (01) ==
LOC: HO.HBST 11:33
PROVIDERS: PCP Internal Medicine; Visit Provider Counselor Mental Health
DX: F33.1 Major depressive disorder, recurrent, moderate (principal); F43.25 Adjustment disorder with mixed disturbance of emotions and conduct; F41.9 Anxiety disorder, unspecified
CPT/HCPCS: 90834

== ENCOUNTER → 2023-08-27 11:15 | Outpatient (BNVA) | payer OTHER, MEDICAID, SELFPAY | PROVIDERS: PCP Internal Medicine; Visit Provider Counselor Mental Health ==

== ENCOUNTER → 2024-02-10 20:30 | Outpatient (BNV) | payer MEDICAID, SELFPAY | PROVIDERS: PCP Internal Medicine; Visit Provider Psychiatry & Neurology Neurology | DX: R06.83 Snoring (principal); G47.61 Periodic limb movement disorder | CPT/HCPCS: 95810 ==

== ENCOUNTER → 2024-02-10 20:30 | Outpatient (REF) | payer MEDICAID, SELFPAY | LOC: HO.SL 20:30 | PROVIDERS: PCP Internal Medicine; Visit Provider Internal Medicine | DX: G47.33 Obstructive sleep apnea (adult) (pediatric) (principal); G47.10 Hypersomnia, unspecified | CPT/HCPCS: 95810 ==

== ENCOUNTER 2024-02-11 06:00 | Outpatient (REF) | payer MEDICAID, SELFPAY ==
[2024-02-11 06:16] LABS: MANUAL DIFF FLAG NO
[2024-02-11 08:01] LABS: Basophils Absolute Auto 0.1 X10*3/uL (0.0-0.2); Basophils Percent Auto 1.1 % (0-2); Eosinophils Absolute Auto 0.1 X10*3/uL (0.0-0.4); Hematocrit 41.7 % (37.0-47.0); Hemoglobin 13.4 g/dl (12.0-16.0); Imm Gran Abs Auto 0.01 X10*3/uL (0.00-0.03); Imm Gran Pct Auto 0.2 % (0.0-0.4); Lymphocytes Percent Auto 44.6 % (20-40); Mean Corpuscular HGB Conc 32.1 g/dl (31.0-35.0); Mean Corpuscular Hemoglobin 26.3 pg (27.0-33.0); Mean Corpuscular Volume 81.8 fL (80.0-98.0); Mean Platelet Volume 9.9 fL (9.4-12.3); Monocytes Absolute Auto 0.3 X10*3/uL (0.1-1.2); Monocytes Percent Auto 7.2 % (2-11); Neutrophils Percent Auto 44.9 % (45-73); Platelet Count 257 X10*3/uL (160-400); Red Cell Distribution Width 13.8 % (11.0-16.0); White Blood Count 4.5 X10*3/uL (4.8-10.8)
[2024-02-11 08:04] LABS: Estimated Average Glucose 103 mg/dL; Hemoglobin A1c % 5.2 % (<6.0)
[2024-02-11 08:53] LABS: Anion Gap 12 (12-20); Blood Urea Nitrogen 15 mg/dL (9-16); Calcium 9.2 mg/dL (8.4-10.2); Carbon Dioxide 28 mmol/L (22-29); Chloride 105 mmol/L (96-108); Estimated Glomerular Filt Rate > 60; Glucose Random 84 mg/dL (60-115); Sodium 142 mmol/L (135-145)
[2024-02-11 08:59] LABS: ~HepC Num1 0.14 S/CO (0.00-0.79); ~Hepatitis C Antibody Nonreactive (Nonreactive)
[2024-02-11 09:10] LABS: TSH reflex Free T4 3.21 uIU/mL (0.32-4.0)
[2024-02-11 09:13] LABS: Folate 9.2 ng/mL (> or = 4.0); Vitamin B12 867 pg/mL (200-900)
[2024-02-12 14:58] LABS: RPR Rapid Plasma Reagin NON-REACTIVE (NON-REACTIVE)
[2024-02-14 19:49] LABS: HIV RNA PCR Qn Copies Not Detected Copies/mL; HIV RNA PCR Qn Log Copies Not Detected Log cps/mL
== END 2024-02-11 06:01 | disposition home or self-care (01) ==
LOC: HO.LAB 06:00
PROVIDERS: PCP Internal Medicine; Visit Provider Internal Medicine
DX: R41.3 Other amnesia (principal)
CPT/HCPCS: 36415; 80048; 82607; 82746; 83036; 84443; 85025; 86592; 86803; 87536; 87900

== ENCOUNTER 2024-02-24 07:27 | Outpatient (REF) | payer MEDICAID, SELFPAY ==
[2024-02-24 08:48] LABS: Alanine Aminotransferase 19 U/L (0-31); Albumin Level 3.5 g/dL (3.5-5.0); Alkaline Phosphatase 71 U/L (39-117); Anion Gap 11 (12-20); Aspartate Amino Transferase 24 U/L (5-31); Bilirubin Direct 0.1 mg/dL (0.0-0.5); Bilirubin Total 0.3 mg/dL (0.0-1.0); Blood Urea Nitrogen 9 mg/dL (9-16); Calcium 8.9 mg/dL (8.4-10.2); Carbon Dioxide 27 mmol/L (22-29); Chloride 106 mmol/L (96-108); Cholesterol 183 mg/dL (<200); Estimated Glomerular Filt Rate > 60; Glucose Random 94 mg/dL (60-115); HDL Cholesterol 59 mg/dL (>40); LDL Cholesterol Calculated 110 mg/dL (<100); Potassium 3.2 mmol/L (3.3-5.1); Sodium 141 mmol/L (135-145); Total Protein 6.7 g/dL (6.5-8.0); Triglycerides 73 mg/dL (<150)
== END 2024-02-24 07:28 | disposition home or self-care (01) ==
LOC: HO.LAB 07:27
PROVIDERS: PCP Internal Medicine; Visit Provider Internal Medicine
DX: E87.6 Hypokalemia (principal); R41.3 Other amnesia
CPT/HCPCS: 36415; 80048; 80061; 80076

== ENCOUNTER 2024-04-14 08:56 | Outpatient (REF) | payer MEDICAID, SELFPAY ==
[2024-04-14 09:58] LABS: Anion Gap 8 (12-20); Blood Urea Nitrogen 9 mg/dL (9-16); Calcium 9.1 mg/dL (8.4-10.2); Carbon Dioxide 29 mmol/L (22-29); Chloride 107 mmol/L (96-108); Estimated Glomerular Filt Rate > 60; Glucose Random 98 mg/dL (60-115); Potassium 3.3 mmol/L (3.3-5.1); Sodium 141 mmol/L (135-145)
== END 2024-04-14 08:57 | disposition home or self-care (01) ==
LOC: HO.LAB 08:56
PROVIDERS: PCP Internal Medicine; Visit Provider Internal Medicine
DX: E87.6 Hypokalemia (principal)
CPT/HCPCS: 36415; 80048

== ENCOUNTER 2024-04-20 13:13 | Outpatient (AMB) | payer MEDICAID, SELFPAY ==
[2024-04-20 13:39] VITALS: BP 128/62; PULSE 84; O2SAT 96; BMI 36.1
--- NOTE | 2024-04-20 13:39 | MHC.OFFVIS ---
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 Patient states that she has intentionally trying to lose weight. [facility] Medical History Steatosis, liver BMI 38.0-38.9,adult BMI 39.0-39.9,adult Obesity Vitamin A deficiency H. pylori infection GERD (gastroesophageal reflux disease) Obstructive sleep apnea on CPAP Morbid obesity Excessive daytime sleepiness Anemia Bipolar 1 disorder Depression Arthritis Migraine Fibromyalgia Sleep apnea Vertigo HTN (hypertension) Surgical History S/P laparoscopic sleeve gastrectomy Hx of tubal ligation Hx of section Family History Mother Hypertension Heart problem Arthritis Diabetes Pacemaker Father Vitiligo Sister No problems noted. Sister No problems noted. Sister No problems noted. Sister No problems noted. Sister No problems noted. Brother No problems noted. Brother No problems noted. Son No problems noted. Son No problems noted. Social History Household Members: Spouse and Children Are you a primary continuum of care manager to a significant other at home: No Do you presently have visiting nurse or other home services: No Alcohol intake: current Alcohol intake frequency: does not drink Patient Tobacco Use Status: Never used Tobacco service: No Current occupational status: disabled Review of Systems Const Denies daytime sleepiness, Denies excessive sweating, Denies fatigue, Denies fever(s), Denies lethargy, Denies malaise, Denies night sweats, Denies snoring and Denies weight loss Eyes Denies blurry vision and Denies itchy eyes ENT Denies nasal congestion, Denies post nasal drip, Denies sinus pain, Denies sinus pressure and Denies other ( Thrush) Card Denies chest pain, Denies pedal edema, Denies dyspnea, Denies orthopnea and Denies paroxysmal nocturnal dyspnea Resp Denies cough, Denies hemoptysis, Denies excessive phlegm production, Denies dyspnea, Denies snoring and Denies wheezing GI Denies abdominal pain and Denies heartburn Musc Denies myalgias, Denies arthralgias and Denies joint swelling Skin/Breast Denies rash Neuro Denies memory loss and Denies seizure-like activity Psych Denies abnormal sleep pattern, Denies anxiety and Denies memory loss Endo Denies excessive sweating, Denies fatigue and Denies heat intolerance [place]one/Lymph Denies easy bruising Aller/Immun Denies itchy eyes, Denies seasonal rhinorrhea and Denies wheezing Physical Exam Vital Signs: Last Vital Signs Pulse 84 04/20/24 13:39 BP 128/62 04/20/24 13:39 Pulse Ox 96 04/20/24 13:39 Oxygen Delivery Method Room Air 04/20/24 13:39 BMI result Body Mass Index 36.1 Const General: no acute distress and alert Nutritional Appearance: obese Orientation/consciousness: Other orientation findings ( oriented) HEENT Head: Yes atraumatic Eyes General: appearance normal, both eyes and all related structures Sclerae: sclerae normal EOM: EOMs intact bilaterally Neck Neck: Yes supple Lymphatic: no lymphadenopathy noted Resp Effort & Inspection: normal respiratory effort and no use of accessory muscles Auscultation: clear to auscultation bilaterally Cardio Rate: regular rate Rhythm: regular rhythm Heart sounds: no gallops, no murmurs and no rubs Skin General skin exam: other ( warm) Extrem General: No clubbing, No cyanosis and No edema Assessment & Plan Assessment & Plan (1) Nocturnal hypoxia: Code(s): G47.34 - Idiopathic sleep related nonobstructive alveolar hypoventilation Category: Medical Plan: Minimal amount of nocturnal hypoxia - on minute below 88% for the duration of sleep study. At this time would not benefit from supplemental oxygen. Coding Level of Care Code New Pt Level 3 (24965) Diagnoses Nocturnal hypoxia G47.34
== END 2024-04-20 13:55 | disposition home or self-care (01) ==
PROVIDERS: PCP Internal Medicine; Visit Provider Internal Medicine Pulmonary Disease
DX: G47.34 Idiopathic sleep related nonobstructive alveolar hypoventilation (principal)
CPT/HCPCS: 99203

== ENCOUNTER → 2024-04-20 13:13 | Outpatient (BNVA) | payer MEDICAID, SELFPAY | PROVIDERS: PCP Internal Medicine; Visit Provider Internal Medicine Pulmonary Disease | DX: G47.34 Idiopathic sleep related nonobstructive alveolar hypoventilation (principal) | CPT/HCPCS: 99202 ==

== ENCOUNTER 2024-07-05 08:05 | Outpatient (REF) | payer MEDICAID, SELFPAY ==
--- NOTE | ~2024-07-05 | CT_ITS ---
EXAMINATION: CT HEAD WITHOUT CONTRAST CLINICAL INFORMATION: Memory changes. 44-year-old female. COMPARISON: Correlation made with MR brain 10/17/2009. TECHNIQUE: Contiguous axial imaging was performed from the skull base to vertex without intravenous administration of contrast. This CT examination was performed using dose optimization techniques as appropriate, variously including the following: *Automated exposure control *Adjustment of mA and/or kV according to patient size (this includes techniques or standardized protocols for targeted exams where dose is matched to indication/reason for exam; i.e. extremities or head) *Use of iterative reconstruction technique DLP: 778 mGy-cm FINDINGS: There is no evidence of intracranial hemorrhage or extra-axial fluid collection. There is no mass effect, or edema. No CT evidence of acute territorial infarct. Ventricles, sulci, and cisterns are normal in size and configuration for patient age. No hydrocephalus. No midline shift. No significant white matter abnormalities. Sella appears normal. There is mild cerebellar tonsillar ectopia without meeting strict criteria for Chiari I malformation. Globes and orbital contents image normally. No extracranial soft tissue abnormalities. There is complete opacity left maxillary sinus. Mild thickening and minimal remodeling of the maxillary sinus wall suggests chronicity. Remainder of the paranasal sinuses, mastoid air cells, and tympanic cavities are normally aerated. No suspicious bony abnormalities. CT/CT head/brain wo IV con IMPRESSION: 1. No acute intracranial abnormalities. 2. No white matter abnormalities. Normal brain volume for age. 3. Mild cerebellar tonsillar ectopia, not meeting strict criteria for Chiari I malformation. This has doubtful clinical significance. 4. Chronic complete opacification left maxillary sinus. Correlate for left maxillary sinus symptoms. Electronically signed by: Ray Tamez MD 09/01/2024 01:47 PM [facility]
== END 2024-07-05 08:06 | disposition home or self-care (01) ==
LOC: HO.CT 08:05
PROVIDERS: PCP Internal Medicine; Visit Provider Psychiatry & Neurology Neurology
DX: R41.3 Other amnesia (principal)
CPT/HCPCS: 70450

== ENCOUNTER → 2024-07-05 08:07 | Outpatient (BNV) | payer MEDICAID, SELFPAY | PROVIDERS: PCP Internal Medicine; Visit Provider Radiology Diagnostic Radiology | DX: R41.3 Other amnesia (principal) | CPT/HCPCS: 70450 ==

== ENCOUNTER 2024-08-09 14:47 | Outpatient (REF) | payer MEDICAID, SELFPAY ==
[2024-08-09 15:33] LABS: Anion Gap 12 (12-20); Blood Urea Nitrogen 10 mg/dL (9-16); Calcium 9.4 mg/dL (8.4-10.2); Carbon Dioxide 27 mmol/L (22-29); Chloride 107 mmol/L (96-108); Estimated Glomerular Filt Rate > 60; Glucose Random 94 mg/dL (60-115); Potassium 3.5 mmol/L (3.3-5.1); Sodium 142 mmol/L (135-145)
[2024-08-09 15:50] LABS: TSH reflex Free T4 0.95 uIU/mL (0.32-4.0)
[2024-08-09 16:03] LABS: Folate 7.2 ng/mL (> or = 4.0); Vitamin B12 828 pg/mL (200-900)
== END 2024-08-09 14:48 | disposition home or self-care (01) ==
LOC: HO.LAB 14:47
PROVIDERS: PCP Internal Medicine; Visit Provider Psychiatry & Neurology Neurology
DX: R41.3 Other amnesia (principal)
CPT/HCPCS: 36415; 80048; 82607; 82746; 84443

== ENCOUNTER 2024-09-01 11:31 | Outpatient (REF) | payer MEDICAID, SELFPAY ==
--- NOTE | ~2024-09-01 | MM_ITS ---
EXAMINATION: MM SCREENING DIGITAL BREAST TOMOSYNTHESIS, BILATERAL CLINICAL INFORMATION: Screening. Asymptomatic. COMPARISON: Mammography: Comparison is made with available priors TECHNIQUE: Digital breast mammography with tomosynthesis is performed in both the craniocaudal and mediolateral oblique views along with computer-aided detection (CAD). FINDINGS: The breasts are heterogeneously dense, which may obscure small masses (ACR BI-RADS breast composition Category c). There are no significant masses, abnormal calcifications, or other abnormalities. MM/MM tomosynthesis screening BI IMPRESSION: No mammographic evidence of malignancy. ASSESSMENT: BI-RADS BI-RADS 1 - Negative RECOMMENDATION: Routine annual mammography screening. 1 year F/U This examination should not preclude the clinical evaluation of a suspicious palpable abnormality. This patient's information was entered into a reminder system with a target due date for their next mammogram. Electronically signed by: Liudmila Erickson DO 09/07/2024 03:07 PM [facility]
== END 2024-09-01 11:32 | disposition home or self-care (01) ==
LOC: HO.MAMMO 11:31
PROVIDERS: PCP Internal Medicine; Visit Provider Internal Medicine
DX: Z12.31 Encounter for screening mammogram for malignant neoplasm of breast (principal)
CPT/HCPCS: 77063; 77067

== ENCOUNTER → 2024-09-01 12:15 | Outpatient (BNV) | payer MEDICAID, SELFPAY | PROVIDERS: PCP Internal Medicine; Visit Provider Internal Medicine | DX: Z12.31 Encounter for screening mammogram for malignant neoplasm of breast (principal) | CPT/HCPCS: 77063; 77067 ==

== ENCOUNTER 2024-12-20 10:42 | Outpatient (AMB) | payer MEDICAID, SELFPAY ==
--- NOTE | 2024-12-20 10:52 | A.OFFVIS_ITS ---
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 [employer] Supervisor Required: Yes [employer] Supervisor Services: [employer] Supervisor Present [employer] Supervisor Name: Janki [phone] Accompanied by: Self / Same As Patient Allergies No Known Allergies Allergy (Verified 04/20/24 13:44) Medication List - Last Reconciled 12/20/24 by Kalyan Abrams MD amlodipine 10 mg PO DAILY cholecalciferol (vitamin D3) (Vitamin D3) 25 mcg PO DAILY duloxetine 60 mg PO DAILY duloxetine 20 mg PO DAILY ferrous sulfate (FeroSul) 325 mg PO DAILY hydralazine 25 mg PO TID hydrochlorothiazide 12.5 mg PO DAILY losartan 100 mg PO DAILY meclizine 50 mg PO BID PRN metoprolol succinate ER 50 mg PO DAILY multivitamin 1 tab PO DAILY prazosin 3 mg PO BEDTIME PRN tirzepatide (weight loss) (Zepbound) 5 mg subcut QWEEK trazodone 100 mg PO BEDTIME PRN vitamin B complex (B Complex-Vitamin B12 tablet) 1 tab PO DAILY HPI Comments Details: Dara is here for consultation regarding shortness of breath. No previous history of any cardiac issues. She states that she frequently gets short of breath with activity. Activities like climbing stairs can be difficult. She also feels constant tiredness with any activity. She has a history of obesity and has undergone weight loss surgery in the past but she states she has gained some weight back. Has hypertension on medications. On semaglutide for weight loss. She states that her mother has a pacemaker and she is worried that she might have some cardiac issues. [facility] Medical History Steatosis, liver BMI 38.0-38.9,adult BMI 39.0-39.9,adult Obesity Vitamin A deficiency H. pylori infection GERD (gastroesophageal reflux disease) Obstructive sleep apnea on CPAP Morbid obesity Excessive daytime sleepiness Anemia Bipolar 1 disorder Depression Arthritis Migraine Fibromyalgia Sleep apnea Vertigo HTN (hypertension) Surgical History S/P laparoscopic sleeve gastrectomy Hx of tubal ligation Hx of section Family History Mother Hypertension Heart problem Arthritis Diabetes Pacemaker Father Vitiligo Sister No problems noted. Sister No problems noted. Sister No problems noted. Sister No problems noted. Sister No problems noted. Brother No problems noted. Brother No problems noted. Son No problems noted. Son No problems noted. Social History (Reviewed 12/20/24 @ 11:03 by Stephy Garcia [facility]) Household Members: Spouse and Children Are you a primary pet care assistant to a significant other at home: No Do you presently have visiting nurse or other home services: No Alcohol intake: current Alcohol intake frequency: does not drink Patient Tobacco Use Status: Never used Tobacco service: No Current occupational status: disabled Review of Systems Const Denies chills, Denies daytime sleepiness, Denies fatigue, Denies fever(s), Denies poor appetite, Denies snoring, Denies stops breathing during sleep, Denies weakness, Denies weight gain and Denies weight loss Eyes Denies loss of vision ENT Denies dizziness and Denies hearing loss Card Denies chest pain, Reports irregular heart rhythm, Denies claudication, Denies leg edema, Denies lightheadedness, Denies palpitations, Reports dyspnea on exertion and Denies orthopnea Resp Denies cough, Denies excessive phlegm production, Reports dyspnea on exertion, Denies snoring and Denies wheezing GI Denies abdominal pain, Denies hematochezia, Denies change in bowel habits, Denies nausea and Denies vomiting Denies urinary frequency and Denies dysuria Musc Denies arthralgias, Denies muscle weakness, Denies numbness and Denies other Skin/Breast Denies nail changes and Denies rash Neuro Denies Abnormal speech present, Denies dizziness, Denies loss of vision, Denies memory loss, Denies numbness and Denies weakness Psych Denies depression and Denies memory loss Endo Denies fatigue and Denies palpitations Tyrone/Lymph Denies easy bruising Aller/Immun Denies wheezing Physical Exam Vital Signs: Last Vital Signs Pulse 87 12/20/24 10:53 BP 90/60 12/20/24 10:53 BMI result Body Mass Index 35.5 Const General: comfortable and no acute distress Orientation/consciousness: patient oriented x3 HEENT Other: Unremarkable Head: Yes normal to inspection Neck Neck: Yes normal visual inspection Chest Chest palpation & inspection: normal inspection of the chest Resp Auscultation: clear to auscultation bilaterally Cardio Palpation: normal PMI Heart sounds: S1 normal heart sound present, S2 normal heart sound present, no gallops, no murmurs and no rubs GI Palpation (GI): Soft to palpation Back/Spine/Pelvis Other: unremarkable Skin General skin exam: no rashes or lesions noted Neuro General: patient oriented x3 Speech: No Abnormal speech present Extrem General: Yes normal to inspection Psych Mental Status: mental status grossly normal Office Procedures EKG Details: EKG with underlying sinus rhythm at 87/Min; nonspecific ST-T changes; [place] [address]-[id number], Complete Assessment & Plan Assessment & Plan (1) SOB (shortness of breath): Code(s): R06.02 - Shortness of breath Category: Medical (2) Weakness: Code(s): R53.1 - Weakness Category: Medical (3) Obesity: Code(s): E66.9 - Obesity, unspecified Category: Medical (4) HTN (hypertension): Code(s): I10 - Essential (primary) hypertension Category: Medical Plan Baseline EKG with sinus rhythm and nonspecific ST-T changes. In the home sleep study, no evidence of sleep apnea. We will perform a comprehensive cardiac workup with an echocardiogram, stress test and Holter. If any clear-cut chronotropic incompetence/significant bradycardia, then recommendation would be to stop the beta-blockers. Follow-up after the above testing. Orders: Orders ECG 3 day holter monitor Today R00.2 - Palpitations, R06.02 - Shortness of breath CA stress test Today R06.02 - Shortness of breath CA echo transthoracic complete Today R06.02 - Shortness of breath Coding Level of Care Code New Pt Level 4 (89340) Complex EM visit Add On G2211 Diagnoses SOB (shortness of breath) R06.02 Weakness R53.1 Obesity E66.9 HTN (hypertension) I10 CPT Codes EKG - CPT: 88899-[id number], Complete ([id number])
[2024-12-20 10:53] VITALS: BP 90/60; PULSE 87; BMI 35.5
== END 2024-12-20 11:24 | disposition home or self-care (01) ==
LOC: HO.HCS 10:43
PROVIDERS: PCP Internal Medicine; Visit Provider Internal Medicine
DX: R06.02 Shortness of breath (principal); R53.1 Weakness; E66.9 Obesity, unspecified; I10 Essential (primary) hypertension
CPT/HCPCS: 93010; 99204

== ENCOUNTER → 2024-12-20 10:42 | Outpatient (BNVA) | payer MEDICAID, SELFPAY | PROVIDERS: PCP Internal Medicine; Visit Provider Internal Medicine | DX: R06.02 Shortness of breath (principal); R53.1 Weakness; E66.9 Obesity, unspecified; I10 Essential (primary) hypertension; R00.2 Palpitations | CPT/HCPCS: 93005; 99202 ==

== ENCOUNTER 2024-12-22 08:35 | Outpatient (REF) | payer MEDICAID, SELFPAY ==
[2024-12-22 11:12] LABS: MANUAL DIFF FLAG NO
[2024-12-22 11:17] LABS: Basophils Absolute Auto 0.1 X10*3/uL (0.0-0.2); Basophils Percent Auto 0.8 % (0-2); Eosinophils Absolute Auto 0.1 X10*3/uL (0.0-0.4); Eosinophils Percent Auto 1.2 % (0-4); Hematocrit 41.3 % (37.0-47.0); Hemoglobin 13.8 g/dl (12.0-16.0); Imm Gran Abs Auto 0.02 X10*3/uL (0.00-0.03); Imm Gran Pct Auto 0.3 % (0.0-0.4); Lymphocytes Absolute Auto 1.4 X10*3/uL (1.2-4.9); Lymphocytes Percent Auto 22.7 % (20-40); Mean Corpuscular HGB Conc 33.4 g/dl (31.0-35.0); Mean Corpuscular Hemoglobin 26.8 pg (27.0-33.0); Mean Corpuscular Volume 80.2 fL (80.0-98.0); Mean Platelet Volume 10.9 fL (9.4-12.3); Monocytes Absolute Auto 0.4 X10*3/uL (0.1-1.2); Monocytes Percent Auto 6.3 % (2-11); Neutrophils Absolute Auto 4.1 x10*3/uL (2.0-8.3); Neutrophils Percent Auto 68.7 % (45-73); Platelet Count 239 X10*3/uL (160-400); Red Blood Count 5.15 X10*6/uL (4.20-5.50); Red Cell Distribution Width 13.3 % (11.0-16.0)
[2024-12-22 11:39] LABS: Alanine Aminotransferase 9 U/L (0-31); Albumin Level 3.5 g/dL (3.5-5.0); Alkaline Phosphatase 65 U/L (39-117); Anion Gap 8 (12-20); Aspartate Amino Transferase 15 U/L (5-31); Bilirubin Total 0.5 mg/dL (0.0-1.0); Blood Urea Nitrogen 11 mg/dL (9-16); Carbon Dioxide 26 mmol/L (22-29); Chloride 109 mmol/L (96-108); Cholesterol 155 mg/dL (<200); Estimated Glomerular Filt Rate > 60; Glucose Random 91 mg/dL (60-115); HDL Cholesterol 54 mg/dL (>40); LDL Cholesterol Calculated 89 mg/dL (<100); Potassium 3.4 mmol/L (3.3-5.1); Sodium 140 mmol/L (135-145); Total Protein 6.9 g/dL (6.5-8.0); Triglycerides 61 mg/dL (<150)
[2024-12-22 12:00] LABS: TSH reflex Free T4 1.65 uIU/mL (0.32-4.0)
[2024-12-22 12:02] LABS: Folate 13.8 ng/mL (> or = 4.0); Vitamin B12 833 pg/mL (200-900)
== END 2024-12-22 08:36 | disposition home or self-care (01) ==
LOC: HO.HHCL 08:35
PROVIDERS: Visit Provider Internal Medicine
DX: R06.09 Other forms of dyspnea (principal)
CPT/HCPCS: 36415; 80053; 80061; 82306; 82607; 82746; 84443; 85025

== ENCOUNTER → 2025-01-04 08:22 | Outpatient (REF) | payer MEDICAID, SELFPAY ==
--- NOTE | 2025-01-04 08:27 | CA_ITS ---
Transthoracic Echocardiogram Patient (Last, First, Middle): Dara Garcia, Gender: Female Date of : 1980 Age: 44 Procedure Date: 01/04/2025 Procedure Type: Transthoracic Echocardiogram Location: OP Height: 160. cm Weight: 88.91 kg BSA: 1.92 m2 Heart Rate: 74 bpm BP: 110 / 70 mmHg Utility Service Worker: NATTY Referring MD: Kalyan Abrams MD Symptoms: R06.02 - Shortness of breath Study Quality: Adequate ECG Rhythm: Sinus Conclusions: - The left ventricular systolic function is mildly decreased. The calculated ejection fraction is 50% by biplane method. - The basal inferior segment is akinetic. - The inferoseptal wall, the mid inferior, and basal inferolateral segments are hypokinetic. - No obvious valvular pathology seen on this study. Findings Left Ventricle Normal left ventricular cavity size. There is normal left ventricular wall thickness. The left ventricular systolic function is mildly decreased. The calculated ejection fraction is 50% by biplane method. There is evidence of regional wall motion abnormalities. LV peak GLS -17.6%. Wall Motion Rest Echo Findings The inferoseptal wall, the mid inferior, and basal inferolateral segments are hypokinetic. The basal inferior segment is akinetic. Atria Both atria are normal in size. Aortic Valve There is a normal trileaflet aortic valve. There is no aortic valve stenosis. There is no aortic valve regurgitation. Mitral Valve There is trace mitral valve regurgitation. There is no mitral valve stenosis. Pulmonic Valve The pulmonic valve is likely normal. Tricuspid Valve There is trace tricuspid valve regurgitation. There is no evidence of pulmonary hypertension. Great Vessels The asc aorta and aortic arch are normal in size. Venous The inferior vena cava is normal in size and collapses greater than 50% with inspiration. Pericardium/Pleural There is no evidence of pericardial effusion. Prior Study Comparison No prior study available for comparison. Recommendations, Care & Conclusions No obvious valvular pathology seen on this study. Measurements 2D Linear Measurements IVSd: 0.87 0.6-0.9/0.6-1.0 cm LVIDd: 4.55 3.9-5.3/4.2-5.9 cm LVIDd Index: 2.37 2.4-3.2/2.2-3.1 cm/m2 LVIDs: 3.15 2.0-3.6 cm LVPWd: 0.96 0.7-1.1 cm LA Diam: 3.80 2.7-3.8/3.0-4.0 cm LAIDs Index: 1.98 1.5-2.3 cm/m2 LV Mass: 171.61 67-162/88-224 g LV Mass Index: 89.38 43-95/49-115 g/m2 LVOT Diam: 2.00 3.0+(-)1.3 cm 2D Systolic Function EF 4C: 49.90 >55% EF 2C: 48.70 >55% EF BiP: 49.60 >55% Mitral Valve MV Pk E: 0.65 MV PK A: 0.65 MV Decel Time: 176.00 E/A: 1.00 E'Lateral: 8.70 E'Medial: 5.98 E/E' Med: 10.80 E/E' Lat: 7.40 PHT: 51.00 MVA PHT: 4.31 Decel Ray: 3.68 Aortic Valve AoV Pk Jerrod: 1.42 AoV Mn Jerrod: 1.02 AoV VTI: 0.29 AoV Pk Grad: 8.00 Aov Mn Grad: 5.00 TERRI Cont.VTI: 2.27 LVOT LVOT Pk Jerrod: 1.06 LVOT Mn Jerrod: 0.78 LVOT VTI: 0.21 LVOT Pk Grad: 4.00 LVOT Mn Grad: 3.00 LVOT Diam: 2.00 LVOT Area: 3.14 Diastolic Function MV Pk E: 0.65 MV Pk A: 0.65 E/A: 1.00 E'Medial: 5.98 E/E' Med: 10.80 E' Laterial: 8.70 E/E' Lat: 7.40 Right Ventricle TAPSE (mm): 22.80 TVS' Jerrod: 9.68 Tricuspid Valve TR Pk Jerrod: 1.85 TR Pk Grad: 14.00 RA Press: 3.00 RVSP: 17.00 Great Vessels Aorta Sinus of Valsalva: 2.90 2.0-3.5 cm Ao Asc: 2.80 2.1-3.4 cm Ao Arch: 2.50 Pulmonary Valve PV Pk Jerrod: 0.99 Peak PV Grad: 4.00 Updated in Other Vendor System with Status of Final Kalyan Abrams MD electronically signed on 01/05/2025 12:33:21 PM with status of Final
--- OUTSIDE RECORDS SUMMARY | 2025-01-04 08:38 | XMS_ITS | Clinical Summary ---
Author Organization [facility] ity Address [address] [place] [address] Care Team Providers Care Qa Engineer Name Role Phone Teena Castillo MD Primary Care Provide r Medical History Medical History Date Comments Depressive disorder DX:Depressiv e disorder Obesity DX:Obesity Migraine DX:Migraine Social History Tobacco Use Types Packs/Day Years Used Date Smoking Tobacco: Never Smokeless Tobacco: Never Alcohol Use Standard Drinks/Week Comments Never 0 (1 standard drink = 0.6 oz pur e alcohol) Comments Unknown Sex and Gender Information Value Date Recorded Sex Assigned at Not on file Legal Sex Female 4:39 AM EST Gender Identity Not on file Sexual Orientation Not on file Obstetrics History Last Filed Vital Signs Vital Sign Reading Time Taken Comments Blood Pressure - - Pulse - - Temperature - - Respiratory Rate - - Oxygen Saturation - - Inhaled Oxygen Concentration - - Weight 88.5 kg (195 lb) 03/05/2022 1:39 PM EDT Height 157.5 cm (5' 2 ) 03/05/2022 1:39 PM EDT Body Mass Index 35.67 03/05/2022 1:39 PM EDT Plan of Treatment Health Maintenance Due Date Last Done Comments Breast Cancer Screening 1980 DTaP,Tdap,and Td Vaccines (1 - Tdap) 2000 Hepatitis B Vaccines (1 of 3 - 19+ 3-dose series) 2000 Cervical Cancer Screening: P ap Smear 2002 Depression Screening 09/01/2022 HIV Screening 09/01/2022 Hepatitis C Screening 09/01/2022 Social Influencers of Health Screening 09/01/2022 COVID-19 Vaccine ( - 2023-2 5 season) 2024 Influenza Vaccine (Season Ended) 2025 HIB Vaccines Aged Out No longer eligi ble based on patient's age to complete this topic HPV Vaccines Aged Out No longer eligi ble based on patient's age to complete this topic Hepatitis A Vaccines Aged Out No long er eligible based on patient's age to complete this topic IPV Vaccines Aged Out No longer eligi ble based on patient's age to complete this topic MMR Vaccines Aged Out No longer eligi ble based on patient's age to complete this topic Meningococcal ACWY Vaccine Aged Out N o longer eligible based on patient's age to complete this topic Meningococcal B Vaccine Aged Out No l onger eligible based on patient's age to complete this topic Pneumococcal Vaccine: Pediat rics (0 to 5 Years) and At-Risk Patients (6 to 64 Years) Aged Out No longer eligible b ased on patient's age to complete this topic RSV Immunization Patients Un prince 20 months Aged Out No longer eligible b ased on patient's age to complete this topic Varicella Vaccines Aged Out No longer eligible based on patient's age to complete this topic Care Teams Qa Engineer Relationship Specialty Start Date End Date Teena Castillo MD [address] [place] [phone] PCP - General Internal Medicine 12/31/21
== END ==
LOC: HO.CARD 08:22
PROVIDERS: PCP Internal Medicine; Visit Provider Internal Medicine
DX: R00.2 Palpitations (principal); R06.02 Shortness of breath
CPT/HCPCS: 93242; 93306

== ENCOUNTER → 2025-01-04 08:27 | Outpatient (BNV) | payer MEDICAID, SELFPAY | PROVIDERS: PCP Internal Medicine; Visit Provider Internal Medicine | DX: R06.02 Shortness of breath (principal); R93.1 Abnormal findings on diagnostic imaging of heart and coronary circulation | CPT/HCPCS: 93306; 93356 ==

== ENCOUNTER 2025-01-07 14:29 | Outpatient (AMB) | payer MEDICAID, SELFPAY ==
--- OUTSIDE RECORDS SUMMARY | 2025-01-07 14:45 | XMS_ITS | Clinical Summary ---
Author Organization [facility] ity Address [address] [place] [address] Care Team Providers Care Maintenance Shop Manager Name Role Phone Teena Castillo MD Primary [...] age to complete this topic Care Teams Maintenance Shop Manager Relationship Specialty Start Date End Date Teena Castillo MD [address] [place] [phone] PCP - General Internal Medicine 12/31/21
--- OUTSIDE RECORDS SUMMARY | 2025-01-07 14:45 | XMS_ITS | Encounter Summary ---
Author Organization [employer] Address [address] [place] [address] Care Team Providers Care Generator Assembler Name Role Phone Teena Castillo MD Primary Care Provide r Reason for Visit * Reason Comments Med Refill Encounter Details Date Type Department Care Team ([facility] st Contact Info) Description 09/28/2024 Refill [facility] [address] [place], [place] [phone] Teena Castillo MD [address] [place], [place] [phone] Class 2 severe obesity due to excess calories with serious comorbidity and body mass index (BMI) of 37.0 to 37.9 in adult (CMS/HCC) Social History Tobacco Use Types Packs/Day Years Used Date Smoking Tobacco: Never Passive Smoke Exposure: Never Smokeless Tobacco: Never Alcohol Use Standard Drinks/Week Comments Never 0 (1 standard drink = 0.6 oz pur e alcohol) Depression Answer Date Recorded Patient Health Questionnaire-9 Score 10 02/02/2024 Patient Health Questionnaire-9 Score 10 02/02/2024 Last PHQ-9: Questionnaire Data Not on file 0 02/02/2024 Housing Stability Answer Date Recorded What is your housing situation today? I have arnulfo betts 06/15/[address] you li ve. Do you have problems with any of the following? None of the above 06/15/2024 Food Insecurity Answer Date Recorded Within the past 12 months, y ou worried that your food would run out before you got money to buy more: Never True 06/15/2024 Within the past 12 months,th e food you bought just didn't last and you didn't have enough money to get more: Never True Transportation Answer Date Recorded In the past 12 months, has l ack of transportation kept you from medical appts, meetings, work or from getting things needed for daily living? No 06/15/2024 Utilities Answer Date Recorded In the past 12 months, has t he electric, gas, oil or water company threatened to shut off services in your home? No 06/15/2024 Depression Answer Date Recorded Patient Health Questionnaire-2 Score 3 02/02/2024 Internet Access Answer Date Recorded Internet Access Q1 No 06/15/2024 Internet Access Q2 I do not want or need it 05/30 Comments No Sex and Gender Information Value Date Recorded Sex Assigned at Female 07/29/2022 10:21 AM EDT Legal Sex Female 10:21 AM EDT Gender Identity Choose not to disclose 10:21 AM EDT Sexual Orientation Choose not to disclose 2021 10:21 AM EDT documented as of this encounter Plan of Treatment Upcoming Encounters Date Type Department Care Team (Late st Contact Info) Description 02/11/2025 2:15 PM EDT Office Visit [facility] [address] [place] [phone] Sean Lyles MD [address] [place] [phone] 02/17/2025 1:00 PM EDT Office Visit [facility] [address] [place] [phone] Teena Castillo MD [address] [place] [phone] documented as of this encounter Visit Diagnoses Diagnosis Class 2 severe obesity due to excess calories with serious comorbidity and body mass index (BMI) of 37.0 to 37.9 in adult (CMS/HCC) documented in this encounter Additional Health Concerns Assessment Noted Time PHQ-9 Depression Total Score: 10 024 2:46 PM EDT documented as of this encounter Care Teams Generator Assembler Relationship Specialty Start Date End Date Teena Castillo MD [address] [place] [address] PCP - General Family Medicine 03/18/19 documented as of this encounter
--- OUTSIDE RECORDS SUMMARY | 2025-01-07 14:46 | XMS_ITS | Encounter Summary ---
Author Organization [employer] Address [address] [place] [address] Care Team Providers Care Subcontract Manager Name Role Phone Teena Castillo MD Primary Care Provide r Reason for Visit * Reason Comments Med Refill Encounter Details Date Type Department Care Team ([facility] st Contact Info) Description 08/11/2023 Refill [facility] [address] [place], [place] [phone] Nahid Mak MD [address] [place] [phone] Essential hypertension Social History Tobacco Use Types Packs/Day Years Used Date Smoking Tobacco: Never Passive Smoke Exposure: Never Smokeless Tobacco: Never Alcohol Use Standard Drinks/Week Comments Never 0 (1 standard drink = 0.6 oz pur e alcohol) Depression Answer Date Recorded Patient Health Questionnaire-9 Score 0 04/04/2023 Housing Stability Answer Date Recorded What is your housing situation today? I have arnulfo betts 07/16/[address] you li ve. Do you have problems with any of the following? None of the above 07/16/2023 Food Insecurity Answer Date Recorded Within the past 12 months, y ou worried that your food would run out before you got money to buy more: Never True 07/16/2023 Within the past 12 months,th e food you bought just didn't last and you didn't have enough money to get more: Never True Transportation Answer Date Recorded In the past 12 months, has l ack of transportation kept you from medical appts, meetings, work or from getting things needed for daily living? No 07/16/2023 Utilities Answer Date Recorded In the past 12 months, has t he electric, gas, oil or water company threatened to shut off services in your home? Yes 07/06/2023 Depression Answer Date Recorded Patient Health Questionnaire-2 Score 0 04/04/2023 Comments No Sex and Gender Information Value [...] Description 02/11/2025 2:15 PM EDT Office Visit [facility] [address] [place] [phone] Sean Lyles MD [address] [place] [address] [phone] 02/17/2025 1:00 PM EDT Office Visit [facility] [address] [place] [phone] Teena Castillo MD [address] [place] [address] [phone] documented as of this encounter Visit Diagnoses Diagnosis Essential hypertension Unspecified essential hypertension documented in this encounter Additional Health Concerns Assessment Noted Time PHQ-9 Depression Total Score: 0 04/04/20 23 2:14 PM EDT documented as of this encounter Care Teams Subcontract Manager Relationship Specialty Start Date End Date Teena Castillo MD [address] [place] [address] [phone] PCP - General Family Medicine 03/18/19 documented as of this encounter
--- OUTSIDE RECORDS SUMMARY | 2025-01-07 14:46 | XMS_ITS | Encounter Summary ---
Author Organization [employer] Address [address] [place] [address] Care Team Providers Care Director Of Corporate Responsibility Name Role Phone Teena Castillo MD Primary Care Provide r Encounter Details Date Type Department Care Team (Late st Contact Info) Description 02/06/2023 Orders Only [facility] [address] [place], [place] [phone] Melly Mccloud LPN Social History Tobacco Use Types Packs/Day Years Used Date Smoking Tobacco: Never Assessed Comments Unknown Sex and Gender Information Value [...] Description 02/11/2025 2:15 PM EDT Office Visit [facility] [address] [place] [phone] Sean Lyles MD [address] [place] [phone] 02/17/2025 1:00 PM EDT Office Visit [facility] [address] [place] [address] [phone] Teena Castillo MD [address] [place] [address] [phone] documented as of this encounter Visit Diagnoses Not on filedocumented in this encounter Care Teams Director Of Corporate Responsibility Relationship Specialty Start Date End Date Teena Castillo MD [address] [place] [phone] PCP - General Family Medicine 03/18/19 documented as of this encounter
--- OUTSIDE RECORDS SUMMARY | 2025-01-07 14:46 | XMS_ITS | Clinical Summary ---
Author Organization [employer] Address [address] [facility] [address] [place] [address] Care Team Providers Care Carver [employer] Checke[employer] Specials Name Role Phone Teena Castillo MD Primary Care Provide r Allergies Active Allergy Reactions Criticality Noted Date Comments Trell Inhibitors Cough 10/08/2010 Medications prazosin (Minipress) 2 MG capsuleIndicatio ns:PTSD (post-traumatic stress disorder) take 1 capsule by oral route every bedtime 90 capsule 09/20/20 22 Active B Complex Vitamins (B-Complex/B-12) tabletIndication s:Vitamin deficiency TAKE 1 TABLET BY MOUTH EVERY DAY 90 tablet 1 11/18/19 24 Active cholecalciferol (Vitamin D High Potency) 25 MCG (1000 UT) capsuleIndicatio ns:Vitamin deficiency TAKE 1 CAPSULE BY MOUTH EVERY DAY 90 capsule 1 02/17/20 24 Active hydroCHLOROthiaz jerson 12.5 MG tabletIndication s:Essential hypertension Take 1 tablet (12.5 mg) by mouth Once per day. 30 tablet 03/02/20 24 025 Active meclizine (Antivert) 25 MG tabletIndication s:Dizziness TAKE 2 TABLETS BY MOUTH TWICE DAILY NEEDED 120 tablet 5 08/19/20 24 Active naproxen (Naprosyn) 500 MG tabletIndication s:Pain TAKE 1 TABLET BY MOUTH TWICE DAILY WITH FOOD NEEDED 60 tablet 5 08/19/20 24 Active Multiple Vitamin (Multivitamin) tabletIndication s:Vitamin deficiency TAKE 1 TABLET BY MOUTH EVERY DAY WITH FOOD 90 tablet 1 09/01/20 24 Active hydrALAZINE (Apresoline) 25 MG tabletIndication s:Essential hypertension TAKE 1 TABLET BY MOUTH THREE TIMES DAILY WITH FOOD 270 tablet 1 09/07/20 24 Active metoprolol succinate XL (Toprol-XL) 50 MG 24 hr tablet TAKE 1 TABLET BY MOUTH EVERY MORNING DO NOT BREAK, CRUSH, DISSOLVE OR CHEW 90 tablet 1 09/07/20 24 Active baclofen (Lioresal) 10 MG tabletIndication s:Fibromyositis TAKE 1 TABLET BY MOUTH THREE TIMES DAILY 90 tablet 10/15/19 25 Active Vitamins-Lipotro pics (B Complex Formula 1, Lipotrop,) tabletIndication s:Vitamin deficiency, unspecified TAKE 1 TABLET BY MOUTH EVERY DAY 90 tablet 1 11/10/19 25 Active losartan (Cozaar) 100 MG tabletIndication s:Primary hypertension TAKE 1 TABLET BY MOUTH EVERY DAY 90 tablet 1 11/10/19 25 Active amLODIPine (Norvasc) 10 MG tabletIndication s:Primary hypertension TAKE 1 TABLET BY MOUTH EVERY DAY 90 tablet 1 11/10/19 25 Active Ferrous Sulfate (iron) 325 (65 Fe) MG tabletIndication s:Vitamin deficiency TAKE 1 TABLET BY MOUTH EVERY DAY 90 tablet 1 11/10/19 25 Active Tirzepatide-Weig ht Management (Zepbound) 7.5 MG/0.5ML solutionIndicati ons:Class 2 severe obesity due to excess calories with serious comorbidity and body mass index (BMI) of 37.0 to 37.9 in adult (CMS/[facility]) Inject 7.5 mg under the skin 1 (one) time per week. 2 mL 12/21/19 25 Active Tirzepatide-Weig ht Management (Zepbound) 5 MG/0.5ML solution auto-injectorInd ications:Class 2 severe obesity due to excess calories with serious comorbidity and body mass index (BMI) of 37.0 to 37.9 in adult (CMS/HCC) Inject 0.05 mL (0.5 mg) under the skin 1 (one) time per week. 2 mL 1 10/26/19 25 025 Discontinued Active Problems Problem Noted Date Diagnosed Date Dyspnea on exertion 08/19/2024 Assessment & Plan (11/23/2024 5:17 PM EST): Labs ordered today patient will be contacted with results Do not miss appointment with cardiology [place] 08/19/2024 Class 2 severe obesity due t o excess calories with serious comorbidity and body mass index (BMI) of 37.0 to 37.9 in adult 06/15/2024 Assessment & Plan (07/20/2024 12:23 PM EDT): C/w wegovy 0.25mg weekly RTC 4 weeks Assessment & Plan (06/15/2024 3:03 PM EDT): I will prescribe wegovy for patient, I believe she will benefit form this, she is s/p bariatric surgery, it will impact positively on her health regarding chronic pain, blood pressure and mood Nocturnal hypoxemia 03/12/2024 Hypokalemia 03/02/2024 Assessment & Plan (03/02/2024 4:30 PM EDT): BMP will be check again to make sure K is back to normal , BP medications adjusted as above Other constipation 03/02/2024 Assessment & Plan (03/02/2024 4:29 PM EDT): It was advise diet high in fiber and increase water I will prescribe today miralax Forgetfulness 03/02/2024 Assessment & Plan (03/02/2024 4:29 PM EDT): I will refer patient to neurology Hypersomnia 02/02/2024 TERESO (obstructive sleep apnea) 02/02/2024 Assessment & Plan (03/02/2024 4:30 PM EDT): Sleep study results will be request I will refer patient to pulmonology Memory difficulties 02/02/2024 Assessment & Plan (02/02/2024 4:30 PM EDT): Possibly related to depression but also she is s/p bariatric b12 will be check and other labs to r/o organic etiology Anxiety with depression 02/02/2024 Assessment & Plan (02/02/2024 4:29 PM EDT): C/w psychiatrist and therapist Encounter for preventative adult health care exa mination 04/04/2023 Assessment & Plan (04/04/2023 3:04 PM EDT): Please see HPI Irregular periods 04/04/2023 Hand pain 04/02/2023 Chronic low back pain 04/02/2023 Assessment & Plan (07/20/2024 12:23 PM EDT): I will prescribe today short course of tramadol Carpal tunnel syndrome 04/02/2023 Atypical chest pain 04/02/2023 Opioid abuse 12/08/2017 Vertigo 12/07/2015 Obstructive sleep apnea syndrome 12/07/2015 Morbid obesity 12/07/2015 Migraine without aura, not refractory 12/07/2015 Iron deficiency anemia 12/07/2015 Impaired glucose tolerance 12/07/2015 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 Initial goal of 30 min walk 3-5x/week. Increase as tolerated. - low-sodium diet (goal: <2g/day) and heart healthy diet such as DASH to reduce BP and prevent ASCVD. - Home BP monitoring 1-2 x day with goal of <140/90. - Seek immediate medical attention for chest pain, palpitations, SOB, syncope, or sudden changes in mental status. - Do not change or discontinue current prescriptions without first consulting health care provider Assessment & Plan (06/15/2024 2:59 PM EDT): I advise - Aerobic exercise to reduce BP. Initial goal of 30 min walk 3-5x/week. Increase as tolerated. - low-sodium diet (goal: <2g/day) and heart healthy diet such as DASH to reduce BP and prevent ASCVD. - Home BP monitoring 1-2 x day with goal of <140/90. - Seek immediate medical attention for chest pain, palpitations, SOB, syncope, or sudden changes in mental status. - Do not change or discontinue current prescriptions without first consulting health care provider Assessment & Plan (03/02/2024 4:28 PM EDT): I noticed her blood pressure is controlled, in light of hypokalemia I went down on her hydrochlorothiazide to 12.5mg daily C/w rest of meds and low Na diet Monitor BP at home Assessment & Plan (02/02/2024 4:29 PM EDT): - Aerobic exercise to reduce BP. Initial goal of 30 min walk 3-5x/week. Increase as tolerated. - low-sodium diet (goal: <2g/day) and heart healthy diet such as DASH to reduce BP and prevent ASCVD. - Home BP monitoring 1-2 x day with goal of <140/90. - Seek immediate medical attention for chest pain, palpitations, SOB, syncope, or sudden changes in mental status. - Do not change or discontinue current prescriptions without first consulting health care provider Assessment & Plan (04/04/2023 3:03 PM EDT): Maintenance: BMP: ordered today Lipid Panel: ordered today ASCVD Risk: Calculate pending updated labs - Aerobic exercise to reduce BP. Initial goal of 30 min walk 3-5x/week. Increase as tolerated. - low-sodium diet (goal: <2g/day) and heart healthy diet such as DASH to reduce BP and prevent ASCVD. - Home BP monitoring 1-2 x day with goal of <140/90. - Seek immediate medical attention for chest pain, palpitations, SOB, syncope, or sudden changes in mental status. - Do not change or discontinue current prescriptions without first consulting health care provider Patient will bring log of BP and RTC 2 weeks with nurse for BP I also advise to bring BP machine to compare Depressive disorder 12/07/2015 Assessment & Plan (06/15/2024 3:03 PM EDT): Continue to follow with psychiatry and therapist Allergic rhinitis 12/07/2015 Encounters Date Type Department Care Team Description 12/24/2024 Telephone [facility] [place] [address] Teena Castillo MD TELEPHONE CALL 12/22/2024 Telephone [facility] [place] [address] Teena Castillo MD Prior Auth Prescription; Prior Authorization ( [place] Request: Zepbound) 12/21/2024 Telephone [facility] [place] [address] Teena Castillo MD Call Back Request 12/20/2024 Orders Only [facility] [place] [address] Teena Castillo MD Morbid obesity (CMS/HCC) (Primary Dx); Class 2 severe obesity due to excess calories with serious comorbidity and body mass index (BMI) of 37.0 to 37.9 in adult (CMS/HCC) 12/20/2024 Telephone [facility] [place] [address] Teena Castillo MD Medication Question 12/10/2024 Population Health Risk Score [facility] () Department [address] [place] [address] [phone] Provider, Population Health Generic 11/23/2024 3:15 PM EST Office [facility] [place] [address] Teena Castillo MD Dyspnea on exertion (Primary Dx); Essential hypertension 11/23/2024 Travel 11/18/2024 Telephone [facility] [place] [address] Teena Castillo MD Chart Prep 11/10/2024 Refill [facility] [place] [address] Teena Castillo MD Vitamin deficiency, unspecified; Primary hypertension; Vitamin deficiency 11/09/2024 Patient Outreach [address] [place] [address] Teena Castillo MD Pre-visit Planning ((Unable to reach for PVP screening, LVM)) 10/26/2024 Refill [facility] [address] [place] [address] Teena Castillo MD Class 2 severe obesity due to excess calories with serious comorbidity and body mass index (BMI) of 37.0 to 37.9 in adult (CMS/HCC) 10/15/2024 Refill [facility] [address] [place], [place] [phone] Venecia Oliver MD Fibromyositis from Last 3 Months Immunizations Name Administration Dates Next Due Influenza injectable quadrivalent preservative f ree 06/30/2019 Influenza, IIV3, injectable 07/07/2014, 0 Influenza, Split (incl. purified surface antigen ) 10/26/2013,07/24/2012 Tdap 08/14/2011 Social History Tobacco Use Types Packs/Day Years Used Date Smoking Tobacco: Never Passive Smoke Exposure: Never Smokeless Tobacco: Never Tobacco Cessation:Counseling Given: Not Answered Alcohol Use Standard Drinks/Week Comments Never 0 (1 standard drink = 0.6 oz pur e alcohol) Depression Answer Date Recorded Patient Health Questionnaire-9 Score 17 11/23/2024 Patient Health Questionnaire-9 Score 17 11/23/2024 Last PHQ-9: Questionnaire Data Not on file 0 11/23/2024 Housing Stability Answer Date Recorded What is [...] Answer Date Recorded Patient Health Questionnaire-2 Score 5 11/23/2024 Internet Access Answer Date Recorded Internet Access Q1 No 06/15/2024 Internet Access Q2 I do not want or need it 05/30 Comments No Sex and Gender Information Value Date Recorded Sex Assigned at Female 07/29/2022 10:21 AM EDT Legal Sex Female 10:21 AM EDT Gender Identity Choose not to disclose 10:21 AM EDT Sexual Orientation Choose not to disclose 2021 10:21 AM EDT Last Filed Vital Signs Vital Sign Reading Time Taken Comments Blood Pressure 117/74 11/23/2024 3:07 PM EST Pulse 85 11/23/2024 3:07 PM EST Temperature 36 ??C (96.8 ??F) 11/23/2024 3:07 PM EST Respiratory Rate 18 11/23/2024 3:07 PM EST Oxygen Saturation 94% 06/15/2024 2:02 PM EDT Inhaled Oxygen Concentration - - Weight 92.4 kg (203 lb 9.6 oz) 11/23/2024 3:07 P M EST Height 160 cm (5' 3 ) 11/23/2024 3:07 PM EST Body Mass Index 36.07 11/23/2024 3:07 PM EST Plan of Treatment Upcoming Encounters Date Type Department Care Team (Late st Contact Info) Description 02/11/2025 2:15 PM EDT Office Visit [facility] [address] [place] [phone] Sean Lyles MD [address] [place] [phone] 02/17/2025 1:00 PM EDT Office Visit [facility] [address] [place] [phone] Teena Castillo MD [address] [place] [phone] Health Maintenance Due Date Last Done Comments HIV Screening 1980 Family Planning (PISQ) 1996 Hepatitis B Vaccines (1 of 3 - 19+ 3-dose series) 2000 DTaP/Tdap/Td Vaccines (2 - Td or Tdap) 08/14/2021 08/14/2011 COVID-19 Vaccine (3 - 2023- season) 2024 04/12/2021, 03/22/2021 Influenza Vaccine (#1) 2024 9, 07/07/2014, 10/26/2013, Additional history exists Depression Monitoring 05/23/2025 11/23/2024, 025 Alcohol/Substance Use Screening 06/15/2025 06/15/2024 SDOH Screening 06/15/2025 06/15/2024 Mammogram 09/01/2025 09/01/2024, 07/25/2023 Depression Screening 11/23/2025 11/23/2024, 11/23/19 25 Tobacco Screening 11/23/2025 11/23/2024 Pap Smear 05/01/2026 05/01/2023 Cervical Cancer Screening 05/01/2028 HPV/Cotest 05/01/2028 05/01/2023 Lipid Panel 12/22/2029 12/22/2024, 01/28, 06/21/2023 Zoster Vaccines (1 of 2) 2031 RSV Patients and Patients Aged 60 years or older (1 - 1-dose 75+ series) 2056 Hepatitis C Screening Completed 02/11/2024 HIB Vaccines Aged Out No longer eligi [...] patient's age to complete this topic Meningococcal Vaccine Aged Out No joseph eleni eligible based on patient's age to complete this topic Pneumococcal Vaccine: Pediatrics (0 to 5 Years) and At-Risk Patients (6 to 49) Years) Aged Out No longer eligible based on patient's age to complete this topic RSV under 20 months Aged Out No longe r eligible based on patient's age to complete this topic Rotavirus Vaccines Aged Out No longer eligible based on patient's age to complete this topic Procedures Procedure Name Priority Date/Time Associated Diagnosis Comments VITAMIN D,25-OH,TOTAL,IA Routine 12/22/2024 8:37 AM EDT Dyspnea on exertion VITAMIN B12/FOLATE, SERUM PANEL Routine 12/22/2024 8:37 AM EDT Dyspnea on exertion TSH W/REFLEX TO FT4 Routine 12/22/2024 8 :37 AM EDT Dyspnea on exertion LIPID PANEL, STANDARD Routine 12/22/2024 8:37 AM EDT Dyspnea on exertion CBC WITH AUTO DIFFERENTIAL Routine 12/22/2024 8:37 AM EDT Dyspnea on exertion COMPREHENSIVE METABOLIC PANEL Routine 12/22/2024 8:37 AM EDT Dyspnea on exertion BI MAMMOGRAM SCREENING TOMOSYNTHESIS BILATERAL Routine 09/01/2024 11:55 AM EST HEPATITIS C AB W/REFL TO HCV RNA, QN, PCR Routine 02/11/2024 6:14 AM EDT Memory difficulties HPV MRNA E6/E7 REFLEX TO HPV 16, 18/45 Routine 05/01/2023 12:00 AM EDT PAP SMEAR Routine 05/01/2023 12:00 AM EDT from Last 3 Months or Most Recently Relevant to Health Maintenance Results * Vitamin D, 25-Hydroxy, Total, Immunoassay (12/22/2024 8:37 AM EDT) Vitamin D 25-OH Total 44.0 >30 ng/mL [facility] Comment: Health Based Reference Values*< 20 ??ng/mL ??Dlvyewnyq49-52 ng/mL ??Insufficient> 30 ??ng/mL ??Sufficient*Rosie MIRANDA. N Engl J Med. 2007;357:266-280There is no well-established upper level of normal vitamin Dlevels. Some laboratories use 50 ng/mL as an upper limit ofnormal. However, toxicity is patient-dependent and may occurat any level. Careful correlation with the patient'spresentation is necessary and, if there is concern forvitamin D toxicity, treatment should be consideredirrespective of the serum level.Care must be taken in interpreting Vitamin D results fromdifferent laboratories and methodologies. ??Published datademonstrated that results from patients undergoinghemodialysis may show a negative bias when tested withvarious automated 25-OH vitamin D assays when compared toLC- MS/MS.When testing samples from patients whose predominant form ofVitamin D is Vitamin D2, such as patients receiving VitaminD2 supplementation, results that are subtherapeutic shouldbe confirmed with another method such as LC-MS/MS. Blood Venous blood specimen / Unknown 12/22/2024 8:37 AM EDT 12/22/2024 11:05 AM EDT Teena Otoole MD LAB BLOOD ORDERABLES Final Result [facility] [address] [place] [phone] * Vitamin B12/Folate, Serum Panel (12/22/2024 8:37 AM EDT) Vitamin B12 833 200 - 900 pg/mL [facility] Comment:NORMAL 200-900 PG/ML INDETERMINATE 160-199 PG/ML DEFICIENT < 160 PG/ML Folate 13.8 > or = 4.0 ng/mL [facility] Comment:Reference Values:> o r = 4.0 ng/mL< 4.0 ng/mL suggests folate deficiency Methotrexate, aminopterin and folinic acid(leucovorin) are chemotherapeutic agents whose molecularstructures are similar to folate; therefore, the Architectfolate assay cannot be used for patients using these drugs. Blood Venous blood specimen / Unknown 12/22/2024 8:37 AM EDT 12/22/2024 11:08 AM EDT us Teena Otoole MD LAB BLOOD ORDERABLES Final Result Performing Organization Address City/[facility]/ZIP Co de Phone Number [facility] [address] [place] [phone] * TSH W/Reflex to FT4 (12/22/2024 8:37 AM EDT) TSH reflex Free T4 1.65 0.32 - 4.0 uIU/mL [facility] Blood Venous blood specimen / Unknown 12/22/2024 8:37 AM EDT 12/22/2024 11:05 AM EDT us Teena Otoole MD LAB BLOOD ORDERABLES Final Result Performing Organization Address [facility] Co de Phone Number [facility] [address] [place] [phone] * (ABNORMAL) CBC auto differential (12/22/2024 8:37 AM EDT) White Blood Count 6.0 4.8 - 10.8 X10*3/uL [facility] Red Blood Count 5.15 4.20 - 5.50 X10*6/uL [facility] Hemoglobin 13.8 12.0 - 16.0 g/dl [facility] Hematocrit 41.3 37.0 - 47.0 % [facility] Mean Corpuscular Volume 80.2 80.0 - 98.0 fL [facility] Mean Corpuscular Hemoglobin 26.8(L) 27.0 - 33.0 pg [facility] Mean Corpuscular HGB Conc 33.4 31.0 - 35.0 g/dl [facility] Red Cell Distribution Width 13.3 11.0 - 16.0 % [facility] Platelet Count 239 160 - 400 X10*3/uL [facility] Mean Platelet Volume 10.9 9.4 - 12.3 fL [facility] Neutrophils Percent Auto 68.7 45 - 73 % [facility] Imm Gran Pct Auto 0.3 0.0 - 0.4 % [facility] Lymphocytes Percent Auto 22.7 20 - 40 % [facility] Monocytes Percent Auto 6.3 2 - 11 % [facility] Eosinophils Percent Auto 1.2 0 - 4 % [facility] Basophils Percent Auto 0.8 0 - 2 % [facility] NRBC Pct Auto 0.0 0.0 - 0.2 /100WBC [facility] Neutrophils Absolute Auto 4.1 2.0 - 8.3 x10*3/uL [facility] Imm Gran Abs Auto 0.02 0.00 - 0.03 X10*3/uL [facility] Lymphocytes Absolute Auto 1.4 1.2 - 4.9 X10*3/uL [facility] Monocytes Absolute Auto 0.4 0.1 - 1.2 X10*3/uL [facility] Eosinophils Absolute Auto 0.1 0.0 - 0.4 X10*3/uL [facility] Basophils Absolute Auto 0.1 0.0 - 0.2 X10*3/uL [facility] NRBC Abs Auto 0.000 0.0 - 0.012 X10*3/uL [facility] Blood Venous blood specimen / Unknown 12/22/2024 8:37 AM EDT 12/22/2024 11:09 AM EDT us Teena Otoole MD LAB BLOOD ORDERABLES Final Result [facility] [address] [place] [phone] * Lipid Panel, Standard (12/22/2024 8:37 AM EDT) Triglycerides 61 <150 mg/dL [facility] Comment:Desirable Triglyceri de: less than 150 mg/dLBorderline High Triglyceride 150-199 mg/dLHigh Triglyceride: 200-499 mg/dLVery High Triglyceride: greater than or equal to 5OO mg/dL Cholesterol 155 <200 mg/dL [facility] Comment:Desirable Cholestero l: less than 200 mg/dLBorderline High Cholesterol: 200-239 mg/dLHigh Cholesterol: greater than 239 mg/dL LDL Cholesterol Calculated 89 <100 mg/dL [facility] Comment:Desirable LDL: less than 100 mg/dLNear Optimal/Above Optimal LDL: 110- 129 mg/dLBorderline High LDL: 130-159 mg/dLHigh LDL: 160-189 mg/dLVery High LDL: greater than or equal to 190 mg/dL HDL Cholesterol 54 >40 mg/dL [facility] Comment:Desirable HDL: great er than 40 mg/dL Note: This HDL assay may give artificially low results in patients with liver disease. Blood Venous blood specimen / Unknown 12/22/2024 8:37 AM EDT 12/22/2024 11:05 AM EDT Teena Otoole MD LAB BLOOD ORDERABLES Final Result [facility] [address] [place] [phone] * (ABNORMAL) Comprehensive Metabolic Panel (12/22/2024 8:37 AM EDT) Sodium 140 135 - 145 mmol/L [facility] Potassium 3.4 3.3 - 5.1 mmol/L [facility] Chloride 109(H) 96 - 108 mmol/L [facility] Carbon Dioxide 26 22 - 29 mmol/L [facility] Anion Gap 8(L) 12 - 20 [facility] Urea Nitrogen (BUN) 11 9 - 16 mg/dL [facility] Creatinine, Serum 0.80 0.5 - 1.4 mg/dL [facility] Estimated Glomerular Filt Rate >60 [facility] Comment:Chronic Kidney Disea se: Estimated GFR < 60 mL/min/[id number] Kidney Disease: Estimated GFR < 15 mL/min/1.73m2 Glucose 91 60 - 115 mg/dL [facility] Calcium 9.0 8.4 - 10.2 mg/dL [facility] Bilirubin, Total 0.5 0.0 - 1.0 mg/dL [facility] Aspartate Amino Transferase 15 5 - 31 U/L [facility] Alanine Aminotransferase 9 0 - 31 U/L [facility] Total Protein 6.9 6.5 - 8.0 g/dL [facility] Albumin Level 3.5 3.5 - 5.0 g/dL [facility] Alkaline Phosphatase 65 39 - 117 U/L [facility] Blood Venous blood specimen / Unknown 12/22/2024 8:37 AM EDT 12/22/2024 11:05 AM EDT Teena Otoole MD LAB BLOOD ORDERABLES Final Result [facility] [address] [facility] [place] [phone] * BI Mammogram Screening Tomosynthesis Bilateral (09/01/2024 11:55 AM EST) Anatomical Region Laterality Modality Breast Bilateral Mammography 09/01/2024 11:5 5 AM EST Narrative 09/07/2024 3:10 PM EST ? [facility] [place] ? [address] ?[place] [id number] ? Mammography Report ? Signed ? Patient: Garcia,Dara ?MR#: [id number] ?? 47 ? : 1980 ?Acct:[id number] ? Age/Sex: 44 / F ?ADM Date: 12/04/24 ? Loc: HO.MAMMO ? Attending Dr: Teena Otoole MD ? Ordering Physician: Teena Castillo MD ?Results: ?? 1Negative ? Date of Service: 09/01/24 ?Follow Up: 1 Year From Orig ?? inal Mammogram ? Procedure(s): MM tomosynthesis screening BI ?? Accession Number(s): [id number] ? cc: Teena Castillo MD ? EXAMINATION: ?? MM SCREENING DIGITAL BREAST TOMOSYNTHESIS, BILATERAL ? CLINICAL INFORMATION: ? Screening. Asymptomatic. ? COMPARISON: ?? Mammography: Comparison is made with available priors ? TECHNIQUE: ?? Digital breast mammography with tomosynthesis is performed in both the ?? craniocaudal and mediolateral oblique views along with computer-aided ?? detection (CAD). ? FINDINGS: ?? The breasts are heterogeneously dense, which may obscure small masses ?? (ACR BI-RADS breast composition Category c). ? There are no significant masses, abnormal calcifications, or other ?? abnormalities. ? MM/MM tomosynthesis screening BI ?? IMPRESSION: ?? No mammographic evidence of malignancy. ? ASSESSMENT: ? BI-RADS BI-RADS 1 - Negative ? RECOMMENDATION: ?? Routine annual mammography screening. ? 1 year F/U ? This examination should not preclude the clinical evaluation of a ?? suspicious palpable abnormality. ? This patient's information was entered into a reminder system with a ?? target due date for their next mammogram. ? Electronically signed by: ??Liudmila Erickson DO ??09/07/2024 03:07 PM EST ?? RP ? Dictated By: ?Liudmila Erickson DO ? Signed By: ?<Electronically signed by Liudmila Erickson, DO in OV> ? 09/07/24 1507 ? DD/ 1155 ? TD/TT: 09/01/24 1205 ? Sales Special Agent: ? Procedure Note Cristofer, Image - [facility]07/[facility] [address] [place], [place] [address] Mammography Report Signed Patient: Angi Garcia#: [id number] 47 : 1980Acct:[id number] Age/Sex: 44 / FADM Date: 09/01/24 Loc: HO.MAMMO Attending Dr: Teena Otoole MD Ordering Physician: Teena Castillo MDResults: 1Negative Date of Service: 09/01/24Follow Up: 1 Year From Orig inal Mammogram Procedure(s): MM tomosynthesis screening BI Accession Number(s): [id number] cc: Teena Castillo MD EXAMINATION: MM SCREENING DIGITAL BREAST TOMOSYNTHESIS, BILATERAL CLINICAL INFORMATION: Screening. Asymptomatic. COMPARISON: Mammography: Comparison is made with available priors TECHNIQUE: Digital breast mammography with tomosynthesis is performed in both the craniocaudal and mediolateral oblique views along with computer-aided detection (CAD). FINDINGS: The breasts are heterogeneously dense, which may obscure small masses (ACR BI-RADS breast composition Category c). There are no significant masses, abnormal calcifications, or other abnormalities. MM/MM tomosynthesis screening BI IMPRESSION: No mammographic evidence of malignancy. ASSESSMENT: BI-RADS BI-RADS 1 - Negative RECOMMENDATION: Routine annual mammography screening. 1 year F/U This examination should not preclude the clinical evaluation of a suspicious palpable abnormality. This patient's information was entered into a reminder system with a target due date for their next mammogram. Electronically signed by: Liudmila Erickson DO 09/07/2024 03:07 PM [facility] Dictated By: Liudmila Erickson DO Signed By: <Electronically signed by Liudmila Erickson DO in OV> 09/07/24 1507 DD/ 1155 TD/TT: 09/01/24 1205 Sales Special Agent: us Teena Otoole MD IMG BI PROCEDURES Fin al Result * Hepatitis C Antibody with Reflex to HCV, RNA, Quantitative, Real-Time PCR (02/11/2024 6:14 AM EDT) Hepatitis C Antibody Nonreactive Nonreactive [facility] Comment:Antibodies to HCV no t detected; does not exclude early acuteHCV infection. Blood Venous blood specimen / Unknown 02/11/2024 6:14 AM EDT 02/11/2024 6:14 AM EDT us Teena Otoole MD LAB BLOOD ORDERABLES Final Result [facility] [address] [place] [address] [phone] * HPV mRNA E6/E7 w/Reflex to HPV Genotypes 16, 18/45 (05/01/2023 12:00 AM EDT) Pathologist [facility] HPV nRNA E6/E7 Not Detected Not Detected [facility] Comment:Methodology: Transcr iption-Mediated AmplificationThis assay detects E6/E7 viral messenger RNA (mRNA) from 14high-risk HPV types (16,18,31,33,35,39,45,51,52,56,58,59,66,68).Cervical sources are required for HPV testing.If a vaginal source from a patient who has had atotal hysterectomy with removal of cervix wassubmitted, please contact the testing laboratoryfor alternative testing options.For additional information, please refer [email or web address] Local/faq/QRM940e0(This link if provided for information/educational purposes only.)THIS TEST WAS PERFORMED AT:[employer] [place] [phone] JUÁREZ MD HPV mRNA E6/E7 [facility] HPV 16 RNA [facility] HPV 18/45 RNA [facility] 05/01/2023 05/02/2023 10: 15 AM EDT us Rachel BRYAN LAB CYTOLOGY ORDERABLES F inal Result [facility] [address] [place] [address] [phone] * Pap Smear (05/01/2023 12:00 AM EDT) 05/01/2023 05/02/2023 10: 15 AM EDT Narrative [facility] - 05/24/2023 4:11 PM EDT ----- ------- Name: Dara Garcia ? Age/Sex: 42/F ? : 1980 Unit#: [id number] ?? Attend Dr: RACHEL GAYTAN Lela ?Re05/01/23 ?Status: DEP REF ? Location: HO.HHCLNP ? Disch: ? ----- ------- SPEC : [id number] ?RECD: 05/02/23-5 ? STATUS: ??SOUT ? REQ NUM: [id number] ? SUDARSHAN: 05/01/23-0000 ? SUBM DR: RACHEL GAYTAN CNM ? ENTERED: ??05/05/23-1323 ?SP TYPE: Pap Smr ?OTHR : ? ORDERED: ??Pap Smear ? Interpretation ?? Satisfactory for evaluation. ?? Negative for intraepithelial lesion or malignancy. ? HPV mRNA E6/E7: ?NOT DETECTED ? This assay detects E6/E7 viral messenger RNA (mRNA) from 14 high-risk HPV types (16, 18, ?? 31, 33, 35, 39, 45, 51, 52, 56, 58, 59, 66, 68) ? HPV testing performed by [employer], [place], [place]. ??See reference laboratory ?? portion of the EMR for entire report. ?Clinical Information LMP:Unknown date Previous PAP test:Unknown date/findings ? Material Received ?? ThinPrep-Cervical ----- ------- Signed (signature on file) Meseret Raygoza 05/24/23 1611 ? ----- ------- ? END OF REPORT ? Rachel Gaytan [facility] CYTOLOGY ORDERABLES F inal Result [facility] [address] [place] [address] [phone] from Last 3 Months or Most Recently Relevant to Health Maintenance Insurance [employer] * Guarantor: Dara Garcia Account Type Relation to Patient Date of Phone Billing Address Personal/Family Self [address] [phone] Care Teams [employer] Specials Relationship Specialty Start Date End Date Teena Castillo MD [address] [place] [phone] PCP - General Family Medicine 03/18/19
[2025-01-07 14:53] VITALS: BP 110/64; PULSE 85; BMI 34.9
--- NOTE | 2025-01-07 14:53 | MHC.OFFVIS ---
Vital Signs 01/07/25 14:53 Height 5 ft 3 in Weight 197 lb 1.492 oz BMI 34.9 BP 110/64 Blood Pressure Location Lt brachial Position Sitting Pulse 85 Pulse Source Pulse Oximeter Intake Visit Reasons: echo results Intake Note: echo results Special Warfare Operator Required: Yes Special Warfare Operator Language: Passenger Attendant Name: fideliasheba/[email or web address]/[id number] deana Accompanied by: Significant Other Allergies No Known Allergies Allergy (Verified 04/20/24 13:44) Medication List - Last Reconciled 01/07/25 by Augustine Ag NP amlodipine 10 mg PO DAILY cholecalciferol (vitamin D3) (Vitamin D3) 25 mcg PO DAILY duloxetine 60 mg PO DAILY duloxetine 20 mg PO DAILY ferrous sulfate (FeroSul) 325 mg PO DAILY hydralazine 25 mg PO TID hydrochlorothiazide 12.5 mg PO DAILY losartan 100 mg PO DAILY meclizine 50 mg PO BID PRN metoprolol succinate ER 50 mg PO DAILY multivitamin 1 tab PO DAILY prazosin 3 mg PO BEDTIME PRN tirzepatide (weight loss) (Zepbound) 5 mg subcut QWEEK trazodone 100 mg PO BEDTIME PRN vitamin B complex (B Complex-Vitamin B12 tablet) 1 tab PO DAILY HPI Comments Details: This is a 44-year-old female patient coming in for a follow-up visit. Patient is accompanied by her and the medicaid specialist was used throughout the visit. Patient with a medical history of hypertension and obesity and was recently evaluated in the office for ongoing exertional shortness of breath. Patient underwent an echocardiogram which was abnormal and thus was brought in to discuss this. Today, patient continues to report exertional shortness of breath, palpitations, and persistent fatigue. Patient denies any exertional chest pain, did not dizziness, orthopnea, PND, leg edema, presyncope, syncope. Patient notes that she has had a history of weight loss surgery but is reporting that she is starting to gain it back and is on Zepbound for this. [facility], [facility] Medical History Steatosis, liver BMI 38.0-38.9,adult BMI 39.0-39.9,adult Obesity Vitamin A deficiency H. pylori infection GERD (gastroesophageal reflux disease) Obstructive sleep apnea on CPAP Morbid obesity Excessive daytime sleepiness Anemia Bipolar 1 disorder Depression Arthritis Migraine Fibromyalgia Sleep apnea Vertigo HTN (hypertension) Surgical History S/P laparoscopic sleeve gastrectomy Hx of tubal ligation Hx of section Family History Mother Hypertension Heart problem Arthritis Diabetes Pacemaker Father Vitiligo Sister No problems noted. Sister No problems noted. Sister No problems noted. Sister No problems noted. Sister No problems noted. Brother No problems noted. Brother No problems noted. Son No problems noted. Son No problems noted. Social History Household Members: Spouse and Children Are you a primary palliative care coordinator to a significant other at home: No Do you presently have visiting nurse or other home services: No Alcohol intake: current Alcohol intake frequency: does not drink Patient Tobacco Use Status: Never used Tobacco service: No Current occupational status: disabled Physical Exam Vital Signs: Last Vital Signs Pulse 85 01/07/25 14:53 BP 110/64 01/07/25 14:53 BMI result Body Mass Index 34.9 Const General: cooperative, healthy appearing, comfortable and no acute distress Orientation/consciousness: patient oriented x3 HEENT Head: Yes normal to inspection Neck Neck: Yes normal visual inspection, Yes trachea midline and Yes supple Chest Chest palpation & inspection: normal inspection of the chest Resp Effort & Inspection: normal respiratory effort Auscultation: clear to auscultation bilaterally, no crackles, no rales, no rhonchi and no wheezes Cardio Jugular venous distension: no JVD Palpation: normal PMI Rate: regular rate Rhythm: regular rhythm Heart sounds: S1 normal heart sound present, S2 normal heart sound present, no click, no gallops, no murmurs and no rubs Peripheral pulses: Peripheral pulses 2+ throughout GI Inspection: Yes normal to inspection Palpation (GI): Soft to palpation Auscultation: normal bowel sounds Skin General skin exam: no rashes or lesions noted Neuro General: patient oriented x3 Extrem General: Yes normal to inspection, No no pedal edema and No calf tenderness Psych Appearance: grossly normal Mental Status: mental status grossly normal Speech and movement: Normal speech and movement present Assessment & Plan Assessment & Plan (1) Abnormal echocardiogram: Code(s): R93.1 - Abnormal findings on diagnostic imaging of heart and coronary circulation Category: Medical (2) SOB (shortness of breath): Code(s): R06.02 - Shortness of breath Category: Medical (3) Fatigue: Code(s): R53.83 - Other fatigue Category: Medical (4) HTN (hypertension): Code(s): I10 - Essential (primary) hypertension Category: Medical Plan 01/04/2025-patient underwent an echo study that showed a mildly decreased LV systolic function at 50% with akinetic basal inferior segment and hypokinetic inferoseptal wall, mid inferior as well as basal inferolateral segments. Reviewed this in detail with the patient as well as her . Given her ongoing symptoms and the abnormal findings on the echocardiogram, we will proceed with a cardiac catheterization to further assess the coronary arteries and evaluate the extent of ischemic changes. The procedure along with its indications, risks, and potential benefits was thoroughly discussed with the patient and her . The patient was informed about the potential need for a stent placement. Both the patient and her has been expressed understanding and agrees to proceed with the plan for cancer cardiac catheterization. Start baby aspirin therapy. Continue metoprolol therapy. Patient's blood pressures is well-controlled. Ideally, blood pressure goal less than 130/80. Most recent LDL at 89. We will start atorvastatin 20 mg daily to bring her LDL at goal less than 70. Advised heart healthy diet, losing weight, and aggressive management of vascular risk factors. Advised patient to seek ER care in case of exertional chest pain not resolved the rest or chest pain at rest. We will follow-up after cardiac catheterization. In the interim, patient will call the office with any concerns or change in symptoms. This note was generated using voice recognition software. While every effort has been made to ensure accuracy and proper experimental mechanic spacecraft, there may be occasional errors that could affect the content or meaning of the described symptoms. Orders: Orders Basic Metabolic Panel Today R93.1 - Abnormal findings on diagnostic imaging of heart and coronary circulation Prothrombin Time INR Today R93.1 - Abnormal findings on diagnostic imaging of heart and coronary circulation Complete Blood Count no Diff Today R93.1 - Abnormal findings on diagnostic imaging of heart and coronary circulation Cardiac Cath LT w PCI Today R06.02 - Shortness of breath, R93.1 - Abnormal findings on diagnostic imaging of heart and coronary circulation Medications: New aspirin (Adult Aspirin Regimen) 81 mg PO DAILY 90 tabs 3RF atorvastatin 20 mg PO DAILY 90 tabs 3RF Coding Level of Care Code Est Pt Level 4 (15054) Complex EM visit Add On G2211 Diagnoses Abnormal echocardiogram R93.1 SOB (shortness of breath) R06.02 Fatigue R53.83 HTN (hypertension) I10 Time Spent (min) 35 Comment Time spent in reviewing the chart, test results, assessment, counseling and documentation.
== END 2025-01-07 15:29 | disposition home or self-care (01) ==
LOC: HO.HCS 14:30
PROVIDERS: PCP Internal Medicine
DX: R93.1 Abnormal findings on diagnostic imaging of heart and coronary circulation (principal); R06.02 Shortness of breath; R53.83 Other fatigue; I10 Essential (primary) hypertension
CPT/HCPCS: 99214

== ENCOUNTER → 2025-01-07 14:29 | Outpatient (BNVA) | payer MEDICAID, SELFPAY | PROVIDERS: PCP Internal Medicine | DX: R93.1 Abnormal findings on diagnostic imaging of heart and coronary circulation (principal); R06.02 Shortness of breath; R53.83 Other fatigue; I10 Essential (primary) hypertension | CPT/HCPCS: 99212 ==

== ENCOUNTER 2025-01-14 10:16 | Outpatient (REF) | payer MEDICAID, SELFPAY ==
[2025-01-14 10:57] LABS: Hematocrit 41.3 % (37.0-47.0); Hemoglobin 13.3 g/dl (12.0-16.0); Mean Corpuscular HGB Conc 32.2 g/dl (31.0-35.0); Mean Corpuscular Hemoglobin 26.3 pg (27.0-33.0); Mean Corpuscular Volume 81.8 fL (80.0-98.0); Mean Platelet Volume 9.9 fL (9.4-12.3); Platelet Count 241 X10*3/uL (160-400); Red Blood Count 5.05 X10*6/uL (4.20-5.50); Red Cell Distribution Width 13.5 % (11.0-16.0); White Blood Count 6.2 X10*3/uL (4.8-10.8)
[2025-01-14 10:59] LABS: Prothrombin Time 12.1 SEC (10.9-12.4)
--- OUTSIDE RECORDS SUMMARY | 2025-01-14 11:08 | XMS_ITS | Clinical Summary ---
Author Organization [facility] ity Address [address] [place] [address] Care Team Providers Care Engineering Program Analyst Name Role Phone Teena Castillo MD Primary [...] age to complete this topic Care Teams Engineering Program Analyst Relationship Specialty Start Date End Date Teena Castillo MD [address] [place] [phone] PCP - General Internal Medicine 12/31/21
--- OUTSIDE RECORDS SUMMARY | 2025-01-14 11:08 | XMS_ITS | Encounter Summary ---
Author Organization [email or web address] Address [address] [facility] [place] [address] Care Team Providers Care Store Specialist Name Role Phone Teena Castillo MD Primary Care Provide r Reason for Visit * Reason Comments Med Refill Encounter Details Date Type Department Care Team ([facility] st Contact Info) Description 08/11/2023 Refill [facility] [address] [place], [place] [phone] Nahid Mak MD [address] [place] [address] Essential hypertension Social History Tobacco Use Types [...] Description 02/11/2025 2:15 PM EDT Office Visit [facility] [address] [place] [phone] Sean Lyles MD [address] [place] [address] [phone] 02/17/2025 1:00 PM EDT Office Visit [facility] [address] [place] [phone] Teena Castillo MD [address] [place] [address] [phone] documented as of this encounter Visit Diagnoses Diagnosis Essential hypertension Unspecified essential hypertension documented in this encounter Additional Health Concerns Assessment Noted Time PHQ-9 Depression Total Score: 0 04/04/20 23 2:14 PM EDT documented as of this encounter Care Teams Store Specialist Relationship Specialty Start Date End Date Teena Castillo MD [address] [place] [address] [phone] PCP - General Family Medicine 03/18/19 documented as of this encounter
--- OUTSIDE RECORDS SUMMARY | 2025-01-14 11:08 | XMS_ITS | Clinical Summary ---
Author Organization [employer] Address [address] [place] [address] Care Team Providers Care Powdered Metal Supervisor Name Role Phone Teena Castillo MD Primary [...] (BMI) of 37.0 to 37.9 in adult (CMS/FORMERLY [facility]) Inject 7.5 mg under the skin 1 [...] Encounters Date Type Department Care Team Description 01/14/2025 Orders Only GENERIC EXTERNAL DATA DEPARTMENT Provider, Generic External Data 12/24/2024 Telephone [facility] [place] [address] Teena Castillo MD TELEPHONE CALL 12/22/2024 Telephone [facility] [place] [address] Teena Castillo MD Prior Auth Prescription; Prior Authorization ( PA Request: Zepbound) 12/21/2024 Telephone [facility] [place] [address] Teena Castillo MD Call Back Request 12/20/2024 Orders Only [facility] [place] [address] Teena Castillo MD Morbid obesity (CMS/HCC) (Primary Dx); Class 2 severe obesity due to excess calories with serious comorbidity and body mass index (BMI) of 37.0 to 37.9 in adult (CMS/HCC) 12/20/2024 Telephone [facility] [place] [address] Teena Castillo MD Medication Question 12/10/2024 Population [facility] () Department [address] [place] [phone] Provider, Population Health Generic 11/23/2024 3:15 PM EST Office Visit [facility] [place] [address] Teena Castillo MD Dyspnea on exertion (Primary Dx); Essential hypertension 11/23/2024 Travel 11/18/2024 Telephone [facility] [place] [address] Teena Castillo MD Chart Prep 11/10/2024 Refill [facility] [place] [address] Teena Castillo MD Vitamin deficiency, unspecified; Primary hypertension; Vitamin deficiency 11/09/2024 Patient Outreach [facility] [address] [place] [address] Teena Castillo MD Pre-visit Planning ((Unable to reach for PVP screening, LVM)) 10/26/2024 Refill [facility] [address] [place] [address] Teena Castillo MD Class 2 severe obesity due to excess calories with serious comorbidity and body mass index (BMI) of 37.0 to 37.9 in adult (CMS/[facility]) from Last 3 Months Immunizations Name Administration [...] t he electric, gas, oil or water [employer] threatened to shut off services in your [...] Description 02/11/2025 2:15 PM EDT Office Visit [facility] [address] [place] [phone] Sean Lyles MD [address] [place] [phone] 02/17/2025 1:00 PM EDT Office Visit [facility] [address] [place] [address] [phone] Teena Castillo MD [address] [place] [phone] Health Maintenance Due Date Last Done Comments [...] Procedure Name Priority Date/Time Associated Diagnosis Comments PROTHROMBIN TIME-INR Routine 01/14/2025 10:29 AM EDT CBC Routine 01/14/2025 10:29 AM EDT VITAMIN D,25-OH,TOTAL,IA Routine 12/22/2024 8:37 AM EDT [...] Recently Relevant to Health Maintenance Results * Prothrombin Time-INR (01/14/2025 10:29 AM EDT) Prothrombin Time 12.1 10.9 - 12.4 SEC [facility] INTERNATIONAL NORM RATIO 1.0 0.9 - 1.1 [facility] Comment:INTERNATIONAL NORMAL IZED RATIO (INR) REFERENCE RANGES Reference RangeFor patients not on anticoagulant therapy: 0.9 - 1.1INR ranges for oral anticoagulanttherapy:For prevention and treatment of venous thrombosis and pulmonary embolism: 2.0 - 3.0For acute myocardial infarction with aspirin therapy: 2.0 - 3.0For acute myocardial infarction without aspirin therapy: 3.0 - 4.0For patients with mechanical prosthetic heart valves: 2.5 - 3.5 01/14/2025 10:2 9 AM EDT 01/14/2025 10:29 AM EDT us Generic External Data Provider LAB BLOOD ORDERAB LES Final Result [facility] [address] [place] [phone] * (ABNORMAL) CBC (01/14/2025 10:29 AM EDT) White Blood Count 6.2 4.8 - 10.8 X10*3/uL [facility] Red Blood Count 5.05 4.20 - 5.50 X10*6/uL [facility] Hemoglobin 13.3 12.0 - 16.0 g/dl [facility] Hematocrit 41.3 37.0 - 47.0 % [facility] Mean Corpuscular Volume 81.8 80.0 - 98.0 fL [facility] Mean Corpuscular Hemoglobin 26.3(L) 27.0 - 33.0 pg [facility] Mean Corpuscular HGB Conc 32.2 31.0 - 35.0 g/dl [facility] Red Cell Distribution Width 13.5 11.0 - 16.0 % [facility] Platelet Count 241 160 - 400 X10*3/uL [facility] Mean Platelet Volume 9.9 9.4 - 12.3 fL [facility] NRBC Pct Auto 0.0 0.0 - 0.2 /100WBC [facility] NRBC Abs Auto 0.000 0.0 - 0.012 X10*3/uL [facility] 01/14/2025 10:2 9 AM EDT 01/14/2025 10:29 AM EDT us Generic External Data Provider LAB BLOOD ORDERAB LES Final Result Performing Organization Address [facility]/ZIP Co de Phone Number [facility] [address] [place] [address] [phone] * Vitamin D, 25-Hydroxy, Total, Immunoassay (12/22/2024 8:37 AM EDT) Pathologist [facility] Vitamin D 25-OH Total 44.0 >30 ng/mL [facility] Comment: Health Based Reference Values*< 20 ??ng/mL ??Lvfvdxytv36-25 ng/mL ??Insufficient> 30 ??ng/mL ??Sufficient*Rosie MIRANDA. N [...] BLOOD ORDERABLES Final Result Performing Organization Address [facility]/ZIP Co de Phone Number [facility] [address] [place] [address] [phone] * Vitamin B12/Folate, Serum Panel (12/22/2024 8:37 AM EDT) Pathologist [facility] Vitamin B12 833 200 - 900 pg/mL [facility] Comment:NORMAL 200-900 PG/ML INDETERMINATE 160-199 PG/ML DEFICIENT < 160 PG/ML Folate 13.8 > or = 4.0 ng/mL [facility] Comment:Reference Values:> o r = [...] BLOOD ORDERABLES Final Result Performing Organization Address [facility]/ZIP Co de Phone Number [facility] [address] [place] [phone] * TSH W/Reflex to FT4 (12/22/2024 8:37 AM EDT) [facility] TSH reflex Free T4 1.65 0.32 - 4.0 uIU/mL [facility] Blood Venous blood specimen / Unknown 12/22/2024 8:37 AM EDT 12/22/2024 11:05 AM EDT us Teena Otoole MD LAB BLOOD ORDERABLES Final Result Performing Organization Address [facility]/ZIP Co de Phone Number [facility] [address] [place] [phone] * (ABNORMAL) CBC auto differential (12/22/2024 8:37 AM EDT) [facility] White Blood Count 6.0 4.8 - 10.8 X10*3/uL [facility] Red Blood Count 5.15 4.20 - 5.50 X10*6/uL [facility] Hemoglobin 13.8 12.0 - 16.0 g/dl [facility] Hematocrit 41.3 37.0 - 47.0 % [facility] Mean Corpuscular Volume 80.2 80.0 - 98.0 fL [facility] Mean Corpuscular Hemoglobin 26.8(L) 27.0 - 33.0 pg [facility] Mean Corpuscular HGB Conc 33.4 31.0 - 35.0 g/dl [facility] Red Cell Distribution Width 13.3 11.0 - 16.0 % [facility] Platelet Count 239 160 - 400 X10*3/uL [facility] Mean Platelet Volume 10.9 9.4 - 12.3 fL [facility] Neutrophils Percent Auto 68.7 45 - 73 % [facility] Imm Gran Pct Auto 0.3 0.0 - 0.4 % [facility] Lymphocytes Percent Auto 22.7 20 - 40 % [facility] Monocytes Percent Auto 6.3 2 - 11 % [facility] Eosinophils Percent Auto 1.2 0 - 4 % [facility] Basophils Percent Auto 0.8 0 - 2 % [facility] NRBC Pct Auto 0.0 0.0 - 0.2 /100WBC [facility] Neutrophils Absolute Auto 4.1 2.0 - 8.3 x10*3/uL [facility] Imm Gran Abs Auto 0.02 0.00 - 0.03 X10*3/uL [facility] Lymphocytes Absolute Auto 1.4 1.2 - 4.9 X10*3/uL [facility] Monocytes Absolute Auto 0.4 0.1 - 1.2 X10*3/uL [facility] Eosinophils Absolute Auto 0.1 0.0 - 0.4 X10*3/uL [facility] Basophils Absolute Auto 0.1 0.0 - 0.2 X10*3/uL [facility] NRBC Abs Auto 0.000 0.0 - 0.012 X10*3/uL [facility] Blood Venous blood specimen / Unknown 12/22/2024 8:37 AM EDT 12/22/2024 11:09 AM EDT us Teena Otoole MD LAB BLOOD ORDERABLES Final Result Performing Organization Address [facility] Co de Phone Number [facility] [address] [place] [phone] * Lipid Panel, Standard (12/22/2024 8:37 AM EDT) Triglycerides 61 <150 mg/dL [facility] Comment:Desirable Triglyceri de: less than 150 mg/dLBorderline High Triglyceride 150-199 mg/dLHigh Triglyceride: 200-499 mg/dLVery High Triglyceride: greater than or equal to 5OO mg/dL Cholesterol 155 <200 mg/dL [facility] Comment:Desirable Cholestero l: less than 200 mg/dLBorderline High Cholesterol: 200-239 mg/dLHigh Cholesterol: greater than 239 mg/dL LDL Cholesterol Calculated 89 <100 mg/dL [facility] Comment:Desirable LDL: less than 100 mg/dLNear Optimal/Above Optimal LDL: 110- 129 mg/dLBorderline High LDL: 130-159 mg/dLHigh LDL: 160-189 mg/dLVery High LDL: greater than or equal to 190 mg/dL HDL Cholesterol 54 >40 mg/dL [facility] Comment:Desirable HDL: great er than 40 mg/dL Note: This HDL assay may give artificially low results in patients with liver disease. Blood Venous blood specimen / Unknown 12/22/2024 8:37 AM EDT 12/22/2024 11:05 AM EDT us Teena Otoole MD LAB BLOOD ORDERABLES Final Result Performing Organization Address [facility]/ZIP Co de Phone Number [facility] [address] [place] [phone] [phone] * (ABNORMAL) Comprehensive Metabolic Panel (12/22/2024 8:37 AM EDT) Sodium 140 135 - 145 mmol/L [facility] Potassium 3.4 3.3 - 5.1 mmol/L [facility] Chloride 109(H) 96 - 108 mmol/L [facility] Carbon Dioxide 26 22 - 29 mmol/L [facility] Anion Gap 8(L) 12 - 20 [facility] Urea Nitrogen (BUN) 11 9 - 16 mg/dL [facility] Creatinine, Serum 0.80 0.5 - 1.4 mg/dL [facility] Estimated Glomerular Filt Rate >60 [facility] Comment:Chronic Kidney Disea se: Estimated GFR < 60 mL/min/[id number] Kidney Disease: Estimated GFR < 15 mL/min/1.73m2 Glucose 91 60 - 115 mg/dL [facility] Calcium 9.0 8.4 - 10.2 mg/dL [facility] Bilirubin, Total 0.5 0.0 - 1.0 mg/dL [facility] Aspartate Amino Transferase 15 5 - 31 U/L [facility] Alanine Aminotransferase 9 0 - 31 U/L [facility] Total Protein 6.9 6.5 - 8.0 g/dL [facility] Albumin Level 3.5 3.5 - 5.0 g/dL [facility] Alkaline Phosphatase 65 39 - 117 U/L [facility] Blood Venous blood specimen / Unknown 12/22/2024 8:37 AM EDT 12/22/2024 11:05 AM EDT us Teena Otoole MD LAB BLOOD ORDERABLES Final Result [facility] [address], [place] [phone] * BI Mammogram Screening Tomosynthesis Bilateral (09/01/2024 11:55 AM EST) Anatomical Region Laterality Modality Breast Bilateral Mammography 09/01/2024 11:5 5 AM EST Narrative 09/07/2024 3:10 PM EST ? [facility] ? [address] ?[place] [address] ? Mammography Report ? Signed ? Patient: Garcia,Dara ?MR#: [id number] ?? 47 ? : 1980 ?Acct:[id number] ? Age/Sex: 44 / F ?ADM Date: 09/01/24 ? Loc: HO.MAMMO ? Attending Dr: Teena Otoole MD ? Ordering Physician: Teena Castillo MD ?Results: ?? 1Negative ? Date of Service: 09/01/24 ?Follow Up: 1 Year From Orig ?? inal Mammogram ? Procedure(s): MM tomosynthesis screening BI ?? Accession Number(s): [id number] ? cc: Teena Castillo MD ? EXAMINATION: [...] Liudmila Erickson, DO in OV> ? 09/07/24 150 ? DD/ 1155 ? TD/TT: 09/01/24 1205 ? Wafer Slicer: ? Procedure Note Dongoldenter, Image - 09/07/2024 [facility] [address] [place] [address] Mammography Report Signed Patient: Angi Garcia#: [id number] 47 : 1980Acct:[id number] Age/Sex: 44 / FADM Date: 09/01/24 Loc: HO.MAMMO Attending Dr: Teena Otoole MD Ordering Physician: Teena Castillo MDResults: 1Negative Date of Service: 09/01/24Follow Up: 1 Year From Orig inal Mammogram Procedure(s): MM tomosynthesis screening BI Accession Number(s): [id number] cc: Teena Castillo MD EXAMINATION: MM SCREENING [...] by: Liudmila Erickson DO 09/07/2024 03:07 PM [facility] Dictated By: Liudmila Erickson DO Signed By: <Electronically signed by Liudmila Erickson DO in OV> 09/07/24 1507 DD/ 1155 TD/TT: 09/01/24 1205 Wafer Slicer: us Teena Otoole MD IMG BI PROCEDURES Fin al Result * Hepatitis C Antibody with Reflex to HCV, RNA, Quantitative, Real-Time PCR (02/11/2024 6:14 AM EDT) Hepatitis C Antibody Nonreactive Nonreactive [facility] Comment:Antibodies to HCV no t detected; does not exclude early acuteHCV infection. Blood Venous blood specimen / Unknown 02/11/2024 6:14 AM EDT 02/11/2024 6:14 AM EDT us Teena Otoole MD LAB BLOOD ORDERABLES Final Result [facility] [address] [place] [phone] * HPV mRNA E6/E7 w/Reflex to HPV Genotypes 16, 18/45 (05/01/2023 12:00 AM EDT) HPV nRNA E6/E7 Not Detected Not Detected [facility] Comment:Methodology: Transcr iption-Mediated AmplificationThis assay detects E6/E7 viral messenger RNA (mRNA) from 14high-risk HPV types (16,18,31,33,35,39,45,51,52,56,58,59,66,68).Cervical sources are required for HPV testing.If a vaginal source from a patient who has had atotal hysterectomy with removal of cervix wassubmitted, please contact the testing laboratoryfor alternative testing options.For additional information, please refer [email or web address](This link if provided for information/educational purposes only.)THIS TEST WAS PERFORMED AT:[facility] [place] [phone] JUÁREZ MD HPV mRNA E6/E7 [facility]NP [facility] HPV 16 RNA TNP [facility] HPV 18/45 RNA [facility] 05/01/2023 05/02/2023 10: 15 AM EDT Rachel Gaytan CNM LAB CYTOLOGY ORDERABLES F inal Result [facility] [address] [place] [phone] [phone] * Pap Smear (05/01/2023 12:00 AM EDT) 05/01/2023 05/02/2023 10: 15 AM EDT Narrative [facility] - 05/24/2023 4:11 PM EDT ----- ------- Name: Dara Garcia ? Age/Sex: 42/F ? : 1980 Unit#: [id number] ?? Attend Dr: RACHEL GAYTAN CNM ?Re05/01/23 ?Status: DEP REF ? Location: [facility] ? Disch: ? ----- ------- SPEC : [id number] ?RECD: 05/02/23-1015 ? STATUS: ??SOUT ? REQ NUM: [id number] ? SUDARSHAN: 05/01/23-0000 ? SUBM DR: RACHEL GAYTAN CNM ? ENTERED: ??05/05/23-3 ?SP TYPE: Pap Smr ?OTHR DR: ? ORDERED: ??Pap Smear ? Interpretation ?? Satisfactory for evaluation. ?? Negative for intraepithelial lesion or malignancy. ? HPV mRNA E6/E7: ?NOT DETECTED ? This assay detects E6/E7 viral messenger RNA (mRNA) from 14 high-risk HPV types (16, 18, ?? 31, 33, 35, 39, 45, 51, 52, 56, 58, 59, 66, 68) ? HPV testing performed by [facility] [facility], [place], [place]. ??See reference laboratory ?? portion of the EMR for entire report. ?Clinical Information LMP:Unknown date Previous PAP test:Unknown date/findings ? Material Received ?? ThinPrep-Cervical ----- ------- Signed (signature on file) Meseret Lamas Idalmis 05/24/231610 ? ----- ------- ? END OF REPORT ? us Rachel Gaytan [facility] CYTOLOGY ORDERABLES F inal Result [facility] [address] [place] [phone] [phone] from Last 3 Months or Most Recently Relevant to Health Maintenance Insurance [employer] Care Teams Powdered Metal Supervisor Relationship Specialty Start Date End Date Teena Castillo MD [address] [place] [address] PCP - General Family Medicine 03/18/19
--- OUTSIDE RECORDS SUMMARY | 2025-01-14 11:08 | XMS_ITS | Encounter Summary ---
Author Organization [employer] Address [address] [place] [address] Care Team Providers Care Fraud Prevention Analyst Name Role Phone Teena Castillo MD Primary Care Provide r Encounter Details Date Type Department Care Team (Late st Contact Info) Description 01/14/2025 Orders Only GENERIC EXTERNAL DATA DEPARTMENT Provider, Generic External Data Social History Tobacco Use Types Packs/Day Years [...] Description 02/11/2025 2:15 PM EDT Office Visit [facility] [address] [place] [address] [phone] Sean Lyles MD [address] [place] [address] [phone] 02/17/2025 1:00 PM EDT Office Visit [facility] [address] [place] [address] [phone] Teena Castillo MD [address] [place], [place] [phone] documented as of this encounter Procedures Procedure Name Priority Date/Time Associated Diagnosis Comments PROTHROMBIN TIME-INR Routine 01/14/2025 10:29 AM EDT CBC Routine 01/14/2025 10:29 AM EDT documented in this encounter Results * Prothrombin Time-INR (01/14/2025 10:29 AM EDT) Prothrombin Time 12.1 10.9 - 12.4 SEC [facility] INTERNATIONAL NORM RATIO 1.0 0.9 - 1.1 [facility] Comment:INTERNATIONAL NORMAL IZED RATIO (INR) [...] Provider LAB BLOOD ORDERAB LES Final Result [facility] [address] [place] [phone] * (ABNORMAL) CBC (01/14/2025 10:29 AM EDT) White Blood Count 6.2 4.8 - 10.8 X10*3/uL [facility] Red Blood Count 5.05 4.20 - 5.50 X10*6/uL [facility] Hemoglobin 13.3 12.0 - 16.0 g/dl [facility] Hematocrit 41.3 37.0 - 47.0 % [facility] Mean Corpuscular Volume 81.8 80.0 - 98.0 fL [facility] Mean Corpuscular Hemoglobin 26.3(L) 27.0 - 33.0 pg [facility] Mean Corpuscular HGB Conc 32.2 31.0 - 35.0 g/dl [facility] Red Cell Distribution Width 13.5 11.0 - 16.0 % [facility] Platelet Count 241 160 - 400 X10*3/uL [facility] Mean Platelet Volume 9.9 9.4 - 12.3 fL [facility] NRBC Pct Auto 0.0 0.0 - 0.2 /100WBC [facility] NRBC Abs Auto 0.000 0.0 - 0.012 X10*3/uL [facility] 01/14/2025 10:2 9 AM EDT 01/14/2025 10:29 AM EDT us Generic External Data Provider LAB BLOOD ORDERAB LES Final Result [facility] [address] [place] [phone] documented in this encounter Visit Diagnoses Not on filedocumented in this encounter Additional Health Concerns Assessment Noted Time PHQ-9 Depression Total Score: 17 025 3:24 PM EST documented as of this encounter Care Teams Fraud Prevention Analyst Relationship Specialty Start Date End Date Teena Castillo MD [address] [place] [phone] PCP - General Family Medicine 03/18/19 documented as of this encounter
--- OUTSIDE RECORDS SUMMARY | 2025-01-14 11:08 | XMS_ITS | Encounter Summary ---
Author Organization [employer] Address [address] [facility] [address] [address] [place] [address] Care Team Providers Care Testing Coordinator Name Role Phone Teena Castillo MD Primary Care Provide r Reason for Visit * Reason Comments Med Refill Encounter Details Date Type Department Care Team ([facility] st Contact Info) Description 09/28/2024 Refill [facility] [address] [place], [place] [phone] Teena Castillo MD [address] [place], [place] [phone] Class 2 severe obesity due to excess [...] 02/11/2025 2:15 PM EDT Office Visit [facility] [address] [place] [phone] Sean Lyles MD [address] [place] [phone] 02/17/2025 1:00 PM EDT Office Visit [facility] [address] [place] [phone] Teena Castillo MD [address] [place] [phone] documented as of this encounter Visit Diagnoses Diagnosis Class 2 severe obesity due to excess calories with serious comorbidity and body mass index (BMI) of 37.0 to 37.9 in adult (CMS/HCC) documented in this encounter Additional Health Concerns Assessment Noted Time PHQ-9 Depression Total Score: 10 024 2:46 PM EDT documented as of this encounter Care Teams Testing Coordinator Relationship Specialty Start Date End Date Teena Castillo MD [address] [place] [address] PCP - General Family Medicine 03/18/19 documented as of this encounter
--- OUTSIDE RECORDS SUMMARY | 2025-01-14 11:08 | XMS_ITS | Encounter Summary ---
Author Organization [employer] Address [address] [place] [address] Care Team Providers Care Refund Clerk Name Role Phone Teena Castillo MD Primary Care Provide r Encounter Details Date Type Department Care Team (Late st Contact Info) Description 02/06/2023 Orders Only [facility] [address] [place], [place] [phone] Melly Mccloud LPN Social History Tobacco Use [...] Description 02/11/2025 2:15 PM EDT Office Visit [facility] [address] [place] [phone] Sean Lyles MD [address] [place] [phone] 02/17/2025 1:00 PM EDT Office Visit [facility] [address] [place] [address] [phone] Teena Castillo MD [address] [place] [address] [phone] documented as of this encounter Visit Diagnoses Not on filedocumented in this encounter Care Teams Refund Clerk Relationship Specialty Start Date End Date Teena Castillo MD [address] [place] [address] PCP - General Family Medicine 03/18/19 documented as of this encounter
[2025-01-14 11:23] LABS: Anion Gap 9 (12-20); Blood Urea Nitrogen 11 mg/dL (9-16); Calcium 9.1 mg/dL (8.4-10.2); Carbon Dioxide 28 mmol/L (22-29); Chloride 106 mmol/L (96-108); Estimated Glomerular Filt Rate > 60; Glucose Random 81 mg/dL (60-115); Potassium 3.2 mmol/L (3.3-5.1); Sodium 140 mmol/L (135-145)
== END 2025-01-14 10:17 | disposition home or self-care (01) ==
LOC: HO.LAB 10:16
PROVIDERS: PCP Internal Medicine
DX: R93.1 Abnormal findings on diagnostic imaging of heart and coronary circulation (principal)
CPT/HCPCS: 36415; 80048; 85027; 85610

== ENCOUNTER 2025-01-25 10:10 | Inpatient (IN) | payer MEDICAID, SELFPAY ==
--- NOTE | 2025-01-25 10:12 | ECG_ITS ---
Test Reason : CP Blood Pressure : */* mmHG Vent. Rate : 90 BPM Atrial Rate : 90 BPM P-R Int : 152 ms QRS Dur : 86 ms QT Int : 358 ms P-R-T Axes : 35 -7 26 degrees QTcB Int : 437 ms Normal sinus rhythm Cannot rule out Anterior infarct , age undetermined Abnormal ECG When compared with ECG of 13-Dec-2021 07:20, Nonspecific T wave abnormality now evident in Anterior leads Referred By: Generic ED Physician Electronically Signed By: Newton Lira
[2025-01-25 10:24] LABS: MANUAL DIFF FLAG NO
[2025-01-25 10:26] LABS: Basophils Percent Auto 0.6 % (0-2); Eosinophils Absolute Auto 0.1 X10*3/uL (0.0-0.4); Eosinophils Percent Auto 1.2 % (0-4); Hematocrit 41.9 % (37.0-47.0); Hemoglobin 13.6 g/dl (12.0-16.0); Imm Gran Abs Auto 0.03 X10*3/uL (0.00-0.03); Imm Gran Pct Auto 0.5 % (0.0-0.4); Lymphocytes Absolute Auto 1.3 X10*3/uL (1.2-4.9); Lymphocytes Percent Auto 19.8 % (20-40); Mean Corpuscular HGB Conc 32.5 g/dl (31.0-35.0); Mean Corpuscular Hemoglobin 26.3 pg (27.0-33.0); Mean Corpuscular Volume 80.9 fL (80.0-98.0); Mean Platelet Volume 9.6 fL (9.4-12.3); Monocytes Absolute Auto 0.4 X10*3/uL (0.1-1.2); Monocytes Percent Auto 6.5 % (2-11); Neutrophils Absolute Auto 4.6 x10*3/uL (2.0-8.3); Neutrophils Percent Auto 71.4 % (45-73); Platelet Count 275 X10*3/uL (160-400); Red Blood Count 5.18 X10*6/uL (4.20-5.50); Red Cell Distribution Width 13.7 % (11.0-16.0); White Blood Count 6.5 X10*3/uL (4.8-10.8)
[2025-01-25 10:27] VITALS: BP 107/65; PULSE 92; RESP 12; TEMP 36.6; O2SAT 99; BMI 30.6
[2025-01-25 10:40] LABS: Alanine Aminotransferase 16 U/L (0-31); Albumin Level 3.6 g/dL (3.5-5.0); Alkaline Phosphatase 72 U/L (39-117); Anion Gap 9 (12-20); Aspartate Amino Transferase 24 U/L (5-31); Bilirubin Total 0.4 mg/dL (0.0-1.0); Blood Urea Nitrogen 7 mg/dL (9-16); Calcium 8.9 mg/dL (8.4-10.2); Carbon Dioxide 26 mmol/L (22-29); Chloride 109 mmol/L (96-108); Creatinine Clr Calc Pharmacy 89.8; Estimated Glomerular Filt Rate > 60; Glucose Random 103 mg/dL (60-115); Potassium 3.5 mmol/L (3.3-5.1); Sodium 140 mmol/L (135-145)
[2025-01-25 10:50] LABS: Troponin-I High Sensitivity < 2.7 ng/L (<3.5-17.0)
--- NOTE | 2025-01-25 12:45 | ED_ITS ---
HPI - Chest Pain General Chief Complaint: Chest Pain Stated Complaint: Chest pain Time Seen by Provider: 01/25/25 11:54 History of Present Illness HPI narrative: Patient is a 44-year-old female with a history of being overweight. Status post gastric sleeve history of bipolar depression GERD sleep apnea angina had an echo done beginning of this month which showed an abnormal echocardiogram. Patient is scheduled for a cardiac catheterization at [facility] on February 10. Presented today with having chest pain that is been ongoing all night. It is pressure-like in his mid chest. It is not associated with diaphoresis there is no shortness of breath patient is from home. No fever no chills. No leg swelling. No history of blood clots. Related Data Home Medications ?Medication ?Instructions ?Recorded ?Confirmed duloxetine 60 mg capsule,delayed 60 mg PO DAILY 11/06/21 01/07/25 release meclizine 25 mg tablet 50 mg PO BID PRN Vertigo 11/06/21 01/07/25 metoprolol succinate 50 mg 50 mg PO DAILY 11/06/21 01/07/25 tablet,extended release 24 hr trazodone 100 mg tablet 100 mg PO BEDTIME PRN insomnia 11/06/21 01/07/25 cholecalciferol (vitamin D3) 25 25 mcg PO DAILY 02/11/23 01/07/25 mcg (1,000 unit) capsule (Vitamin D3) ferrous sulfate 325 mg (65 mg 325 mg PO DAILY 02/11/23 01/07/25 iron) tablet (FeroSul) hydralazine 25 mg tablet 25 mg PO TID 02/11/23 01/07/25 losartan 100 mg tablet 100 mg PO DAILY 02/11/23 01/07/25 multivitamin 1 tab PO DAILY 02/11/23 01/07/25 prazosin 1 mg capsule 3 mg PO BEDTIME PRN as needed 02/11/23 01/07/25 vitamin B complex (B 1 tab PO DAILY 02/11/23 01/07/25 Complex-Vitamin B12 tablet) amlodipine 10 mg tablet 10 mg PO DAILY 06/17/23 01/07/25 duloxetine 20 mg capsule,delayed 20 mg PO DAILY 12/20/24 01/07/25 release tirzepatide (weight loss) 5 mg/0.5 5 mg subcut QWEEK 12/20/24 01/07/25 mL subcutaneous pen injector (FriendFeedpbound) Previous Rx's ?Medication ?Instructions ?Recorded aspirin 81 mg tablet,delayed 81 mg PO DAILY #90 tabs 01/07/25 release (Adult Aspirin Regimen) atorvastatin 20 mg tablet 20 mg PO DAILY #90 tabs 01/07/25 potassium chloride 20 mEq 20 meq PO DAILY #5 tabs 01/18/25 tablet,extended release Allergies Allergy/AdvReac Type Severity Reaction Status Date / Time No Known Allergies Allergy Verified 01/25/25 10:34 Review of Systems 2 Review of Systems: Positive chest pain Yes all other systems are reviewed and are negative [facility] Past Medical History Attestation statement: The following information was validated with the patient. Medical History Steatosis, liver BMI 38.0-38.9,adult BMI 39.0-39.9,adult Obesity Vitamin A deficiency H. pylori infection GERD (gastroesophageal reflux disease) Obstructive sleep apnea on CPAP Morbid obesity Excessive daytime sleepiness Anemia Bipolar 1 disorder Depression Arthritis Migraine Fibromyalgia Sleep apnea Vertigo HTN (hypertension) Surgical History S/P laparoscopic sleeve gastrectomy Hx of tubal ligation Hx of section Family History Family History Mother Hypertension Heart problem Arthritis Diabetes Pacemaker Father Vitiligo Sister No problems noted. Sister No problems noted. Sister No problems noted. Sister No problems noted. Sister No problems noted. Brother No problems noted. Brother No problems noted. Son No problems noted. Son No problems noted. Social History Social History Household Members: Spouse and Children Are you a primary primary care pediatrician to a significant other at home: No Do you presently have visiting nurse or other home services: No Alcohol intake: current Alcohol intake frequency: does not drink Patient Tobacco Use Status: Never used Tobacco Smoked in Last 30 Days: No Use of substances other than those prescribed or required for medical reasons: No Advance Directives: No Advance Directives Information Provided: Yes Do you have a plan to hurt others: No Plan Patient : No service: No Current occupational status: disabled Physical Exam 2 Vital Signs: Vital Signs: Last Vital Signs Temp 97.9 F 01/25/25 10:27 Pulse 79 01/25/25 13:47 Resp 14 01/25/25 13:47 BP 112/73 01/25/25 13:47 Pulse Ox 98 01/25/25 13:47 O2 Del Method Room Air 01/25/25 13:47 BMI result Body Mass Index 30.6 Appearance: Alert. Oriented X3. No acute distress. Eyes: Pupils equal, round and reactive to light. ENT: Pharynx normal. Neck: Normal inspection. Neck supple. No lymph nodes noted. No crepitus CVS: Normal heart rate and rhythm. Pulses normal. Normal S1 and S2 Respiratory: No respiratory distress. Breath sounds normal. No Wheezing. No rales Abdomen: Soft and nontender. No rigidity. No distention. good BS x4 Skin: Skin warm and dry. Normal skin color. Normal skin turgor. Extremities: No lower extremity edema. Neurovascular intact to all extremities. No Lacerations. No Rash Neuro: Oriented X 3. No motor deficit. No sensory deficit. Moving all extermities. No slurred speech Medical Decision Making Medical Decision Making [facility] Narrative: Positive chest pain, mid chest. Tightness. Constant. My interpretation of her EKG showed sinus pattern heart rate is 90 MS QRS QTC normal diffuse T-wave flattening noted. Patient's previous EKG was reviewed approximately the same. Patient's previous echo report was reviewed. It showed areas of hypokinesis. Patient's troponin is negative. Pain is atypical for ACS. Given patient's chest pain abnormal echo. Scheduled for a catheterization already. Patient's case was consulted by Cardiology. [place] patient would be better served to be admitted/transferred to [facility] for cast on an earlier date. Currently in stable condition they recommended for patient be started on Lovenox. First dose was given. Patient is currently in no distress. Differential Diagnosis Differential Diagnoses: The differential diagnosis associated with the presentation includes ACS, angina Admission/Observation Consideration of admission/observation: Escalation of care including admission/observation considered Consult Healthcare Provider Management of the patient was discussed with: Hospitalist and Art Coordinator (Cardiology) Lab Data [facility] Lab Attestation statement: I reviewed the patient's lab results. 01/25/25 10:20 01/25/25 10:20 Labs: Lab Results 01/25/25 Range/Units 10:20 WBC 6.5 (4.8-10.8) X10*3/uL RBC 5.18 (4.20-5.50) X10*6/uL Hgb 13.6 (12.0-16.0) g/dl Hct 41.9 (37.0-47.0) % MCV 80.9 (80.0-98.0) fL MCH 26.3 L (27.0-33.0) pg MCHC 32.5 (31.0-35.0) g/dl RDW 13.7 (11.0-16.0) % Plt Count 275 (160-400) X10*3/uL MPV 9.6 (9.4-12.3) fL Immature Gran % (Auto) 0.5 H (0.0-0.4) % Neut % (Auto) 71.4 (45-73) % Lymph % (Auto) 19.8 L (20-40) % [place] % (Auto) 6.5 (2-11) % Eos % (Auto) 1.2 (0-4) % Baso % (Auto) 0.6 (0-2) % Lymph # (Auto) 1.3 (1.2-4.9) X10*3/uL [place] # (Auto) 0.4 (0.1-1.2) X10*3/uL Eos # (Auto) 0.1 (0.0-0.4) X10*3/uL Baso # (Auto) 0.0 (0.0-0.2) X10*3/uL Abs Immat Gran (auto) 0.03 (0.00-0.03) X10*3/uL Absolute Neuts (auto) 4.6 (2.0-8.3) x10*3/uL Absolute Nucleated RBC 0.000 (0.0-0.012) X10*3/uL Nucleated RBC % (auto) 0.0 (0.0-0.2) /100WBC Sodium 140 (135-145) mmol/L Potassium 3.5 (3.3-5.1) mmol/L Chloride 109 H (96-108) mmol/L Carbon Dioxide 26 (22-29) mmol/L Anion Gap 9 L (12-20) BUN 7 L (9-16) mg/dL Creatinine 0.80 (0.5-1.4) mg/dL Estim Creat Clear Calc 89.8 Estimated GFR > 60 Random Glucose 103 (60-115) mg/dL Calcium 8.9 (8.4-10.2) mg/dL Total Bilirubin 0.4 (0.0-1.0) mg/dL AST 24 (5-31) U/L ALT 16 (0-31) U/L Alkaline Phosphatase 72 (39-117) U/L Troponin I High Sens < 2.7 (<3.5-17.0) ng/L Total Protein 7.0 (6.5-8.0) g/dL Albumin 3.6 (3.5-5.0) g/dL Independent Interpretation I performed an independent interpretation of an: EKG (Please see above) External Record Review External record reviewed: Office record, Outpatient record (By echocardiogram) and Prior outpatient radiology Chronic Conditions Patient?s care impacted by: Hypertension Social Determinants Patient?s care significantly limited by Social Determinants of Health including: Problems related to primary support group Critical Care Time Critical Care Time Critical Care Time: Yes Total Critical Care Time: 40 Attestation: I have personally provided 40 minutes of critical care time exclusive of time spent on separately billable procedures. ?Time includes review of lab data, radiology results, discussion with consultants, and monitoring for potential decompensation. ?Interventions were performed as documented above Discharge Plan Discharge Clinical Impression: Angina at rest Patient Disposition: Admitted As Inpatient Prescriptions: No Action potassium chloride 20 mEq tablet extended release 20 meq PO DAILY Qty: 5 0RF duloxetine 60 mg capsule,delayed release(DR/EC) 60 mg PO DAILY trazodone 100 mg tablet 100 mg PO BEDTIME PRN (Reason: insomnia) metoprolol succinate 50 mg tablet extended release 24 hr 50 mg PO DAILY meclizine 25 mg tablet 50 mg PO BID PRN (Reason: Vertigo) prazosin 1 mg capsule 3 mg PO BEDTIME PRN (Reason: as needed) losartan 100 mg tablet 100 mg PO DAILY hydralazine 25 mg tablet 25 mg PO TID ferrous sulfate [FeroSul] 325 mg (65 mg iron) tablet 325 mg PO DAILY vitamin B complex [B Complex-Vitamin B12] Tablet 1 tab PO DAILY cholecalciferol (vitamin D3) [Vitamin D3] 25 mcg (1,000 unit) capsule 25 mcg PO DAILY multivitamin Tablet 1 tab PO DAILY amlodipine 10 mg tablet 10 mg PO DAILY Zepbound 5 mg/0.5 mL pen injector 5 mg subcut QWEEK duloxetine 20 mg capsule,delayed release(DR/EC) 20 mg PO DAILY aspirin [Adult Aspirin Regimen] 81 mg tablet,delayed release (DR/EC) 81 mg PO DAILY Qty: 90 3RF atorvastatin 20 mg tablet 20 mg PO DAILY Qty: 90 3RF Print Language: Urdu
--- NOTE | 2025-01-25 13:39 | P.CONCA_ITS ---
History of Present Illness History of Present Illness Date of Service: 01/25/25 Requesting physician: Ashanti Alcantar Chief complaint: Chest pain Narrative: [age] year female presenting with chest discomfort shortness of breath. She has known history of chest discomfort, hypertension and obesity. She underwent echocardiography as outpatient which showed inferior wall motion abnormalities and she was due to get outpatient cardiac catheterization in January. She is now presenting because she had many hours of chest discomfort and shortness of breath along with palpitations overnight. Her biomarkers are negative. EKGs did not show any dynamic changes. She is describing a tightness in her chest. She has fibromyalgia but there is no reproducible chest discomfort. She has background of anxiety. [facility] Past Medical History Medical History Steatosis, liver BMI 38.0-38.9,adult BMI 39.0-39.9,adult Obesity Vitamin A deficiency H. pylori infection GERD (gastroesophageal reflux disease) Obstructive sleep apnea on CPAP Morbid obesity Excessive daytime sleepiness Anemia Bipolar 1 disorder Depression Arthritis Migraine Fibromyalgia Sleep apnea Vertigo HTN (hypertension) Family History Family History Mother Hypertension Heart problem Arthritis Diabetes Pacemaker Father Vitiligo Sister No problems noted. Sister No problems noted. Sister No problems noted. Sister No problems noted. Sister No problems noted. Brother No problems noted. Brother No problems noted. Son No problems noted. Son No problems noted. Surgical History Surgical History S/P laparoscopic sleeve gastrectomy Hx of tubal ligation Hx of section Social History Social History Household Members: Spouse and Children Are you a primary intensive care anaesthetist to a significant other at home: No Do you presently have visiting nurse or other home services: No Alcohol intake: current Alcohol intake frequency: does not drink Patient Tobacco Use Status: Never used Tobacco Advance Directives: No Advance Directives Information Provided: Yes Do you have a plan to hurt others: No Plan service: No Current occupational status: disabled Meds Allergies Allergy/AdvReac Type Severity Reaction Status Date / Time No Known Allergies Allergy Verified 01/25/25 10:34 Home Medications ?Medication ?Instructions ?Recorded ?Confirmed ?Last Taken ?Type duloxetine 60 mg capsule,delayed 60 mg PO DAILY 11/06/21 01/07/25 Unknown History release meclizine 25 mg tablet 50 mg PO BID PRN Vertigo 11/06/21 01/07/25 Unknown History metoprolol succinate 50 mg 50 mg PO DAILY 11/06/21 01/07/25 07/04/23 History tablet,extended release 24 hr trazodone 100 mg tablet 100 mg PO BEDTIME PRN insomnia 11/06/21 01/07/25 Unknown History cholecalciferol (vitamin D3) 25 25 mcg PO DAILY 02/11/23 01/07/25 Unknown History mcg (1,000 unit) capsule (Vitamin D3) ferrous sulfate 325 mg (65 mg 325 mg PO DAILY 02/11/23 01/07/25 Unknown History iron) tablet (FeroSul) hydralazine 25 mg tablet 25 mg PO TID 02/11/23 01/07/25 Unknown History losartan 100 mg tablet 100 mg PO DAILY 02/11/23 01/07/25 07/04/23 History multivitamin 1 tab PO DAILY 02/11/23 01/07/25 Unknown History prazosin 1 mg capsule 3 mg PO BEDTIME PRN as needed 02/11/23 01/07/25 Unknown History vitamin B complex (B 1 tab PO DAILY 02/11/23 01/07/25 Unknown History Complex-Vitamin B12 tablet) amlodipine 10 mg tablet 10 mg PO DAILY 06/17/23 01/07/25 07/04/23 History duloxetine 20 mg capsule,delayed 20 mg PO DAILY 12/20/24 01/07/25 Unknown History release tirzepatide (weight loss) 5 mg/0.5 5 mg subcut QWEEK 12/20/24 01/07/25 Unknown History mL subcutaneous pen injector (Zepbound) Physical Exam 2 Vital Signs: Vital Signs: Last Vital Signs Temp 97.9 F 01/25/25 10:27 Pulse 92 01/25/25 10:27 Resp 12 01/25/25 10:27 BP 107/65 01/25/25 10:27 Pulse Ox 99 01/25/25 10:27 O2 Del Method Room Air 01/25/25 10:27 BMI result Body Mass Index 30.6 GENERAL APPEARANCE: in no acute distress, pleasant. Anxious appearing. NECK: no carotid bruit, no jugular venous distention. SKIN: no suspicious lesions, warm and dry. HEART: no murmurs, regular rate and rhythm. LUNGS: clear to auscultation bilaterally. ABDOMEN: soft, nontender. EXTREMITIES: no edema. PERIPHERAL PULSES: equal. NEUROLOGIC: No gross deficits, AAO X 3 Objective Labs and Meds 01/25/25 10:20 01/25/25 10:20 Lab results: Laboratory Results - last 24 hr 01/25/25 10:20 WBC 6.5 RBC 5.18 Hgb 13.6 Hct 41.9 MCV 80.9 MCH 26.3 L MCHC 32.5 RDW 13.7 Plt Count 275 MPV 9.6 Immature Gran % (Auto) 0.5 H Neut % (Auto) 71.4 Lymph % (Auto) 19.8 L [place] % (Auto) 6.5 Eos % (Auto) 1.2 Baso % (Auto) 0.6 Lymph # (Auto) 1.3 [place] # (Auto) 0.4 Eos # (Auto) 0.1 Baso # (Auto) 0.0 Abs Immat Gran (auto) 0.03 Absolute Neuts (auto) 4.6 Absolute Nucleated RBC 0.000 Nucleated RBC % (auto) 0.0 Sodium 140 Potassium 3.5 Chloride 109 H Carbon Dioxide 26 Anion Gap 9 L BUN 7 L Creatinine 0.80 Estim Creat Clear Calc 89.8 Estimated GFR > 60 Random Glucose 103 Calcium 8.9 Total Bilirubin 0.4 AST 24 ALT 16 Alkaline Phosphatase 72 Troponin I High Sens < 2.7 Total Protein 7.0 Albumin 3.6 Assessment and Plan (1) Unstable angina: Status: Acute Plan Pleasant 44-year-old lady who has been assessed in the office for chest pain and underwent echocardiography which showed inferior wall motion abnormality. She was subsequently set up for cardiac catheterization as outpatient. She now presenting with progressive symptoms. She is complaining of pressure in her chest and shortness of breath. EKG does not have any dynamic changes but does have poor R-wave progression. Given chest discomfort and abnormal echocardiography previously her presentation is concerning and we discussed in detail about doing the cardiac catheterization on this admission versus outpatient. After some discussion we have decided transferred to [facility] and performed diagnostic cardiac catheterization. Give a therapeutic dose of Lovenox and treat as unstable angina until proven otherwise. Continue baby aspirin. test not required because patient had hysterectomy in the past. Thank you for allowing me to participate in the care of your patient. Please feel free to contact me if you have any questions. Procedures Date of Service Date of Service: 01/25/25
[2025-01-25 13:47] VITALS: BP 112/73; PULSE 79; RESP 14; O2SAT 98
--- OUTSIDE RECORDS SUMMARY | 2025-01-25 14:01 | XMS_ITS | Encounter Summary ---
Author Organization [employer] Address [address] [place] [address] Care Team Providers Care Gymnasium Teacher Name Role Phone Teena Castillo MD Primary Care Provide r Reason for Visit * Reason Comments Med Refill Encounter Details Date Type Department Care Team ([facility] st Contact Info) Description 09/28/2024 Refill [facility] MED[facility]INE [address] [place], [place] [phone] Teena Castillo MD [address] [place], [place] [phone] Class 2 severe obesity due to excess [...] Care Team (Late st Contact Info) Description 01/31/2025 1:00 PM EDT Office Visit [facility] ADULT DENTAL [address] [place], [place] [phone] MelchorGeorge legerapril [address] [place] [address] 02/11/2025 2:15 PM EDT Office Visit [facility] MED[facility]INE [address] [place] [phone] Sean Lyles MD [address] [place] [id number] 02/17/2025 1:00 PM EDT Office Visit [facility]INE [address] [place] [address] [phone] Teena Castillo MD [address] [place] [phone] documented as of this encounter Visit Diagnoses Diagnosis Class 2 severe obesity due to excess calories with serious comorbidity and body mass index (BMI) of 37.0 to 37.9 in adult (CMS/HCC) documented in this encounter Additional Health Concerns Assessment Noted Time PHQ-9 Depression Total Score: 10 024 2:46 PM EDT documented as of this encounter Care Teams Gymnasium Teacher Relationship Specialty Start Date End Date Teena Castillo MD [address] [place] [phone] PCP - General Family Medicine 03/18/19 documented as of this encounter
--- OUTSIDE RECORDS SUMMARY | 2025-01-25 14:01 | XMS_ITS | Encounter Summary ---
Author Organization [employer] Address [address] [place] [address] Care Team Providers Care Director Of Accounting Name Role Phone Teena Castillo MD Primary Care Provide r Encounter Details Date Type Department Care Team (Late st Contact Info) Description 02/06/2023 Orders Only [facility] [address] [place] [address] Melly Mccloud LPN Social History Tobacco Use [...] 1:00 PM EDT Office Visit [facility] ADULT DENTAL [address] [place] [address] Sara Melchor [address] [place] [address] 02/11/2025 2:15 PM EDT Office Visit [facility] MEDICINE [address] [place] [address] Sean Lyles MD [address] [place] [address] 02/17/2025 1:00 PM EDT Office Visit [facility] MEDICINE [address] [place] [address] Teena Castillo MD [address] [place] [phone] documented as of this encounter Visit Diagnoses Not on filedocumented in this encounter Care Teams Director Of Accounting Relationship Specialty Start Date End Date Teena Castillo MD [address] [place] [id number] PCP - General Family Medicine 03/18/19 documented as of this encounter
--- OUTSIDE RECORDS SUMMARY | 2025-01-25 14:01 | XMS_ITS | Encounter Summary ---
Author Organization [employer] Address [address] [facility] [address] [place] [address] Care Team Providers Care Support Assistant Name Role Phone Teena Castillo MD Primary Care Provide r Encounter Details Date Type Department Care Team (Late st Contact Info) Description 01/25/2025 Orders Only GENERIC EXTERNAL DATA DEPARTMENT Provider, [...] Description 01/31/2025 1:00 PM EDT Office Visit [facility] [address] [place], [place] [phone] George Melchoranpreet [address] [place] [address] 02/11/2025 2:15 PM EDT Office Visit [facility] [address] [place] [address] Sean Lyles MD [address] [place] [phone] 02/17/2025 1:00 PM EDT Office Visit [facility] [address] [place] [address] Teena Castillo MD [address] [place] [address] documented as of this encounter Procedures Procedure Name Priority Date/Time Associated Diagnosis Comments HIGH SENSITIVITY TROPONIN I Routine 01/25/2025 10:20 AM EDT CBC WITH AUTO DIFFERENTIAL Routine 01/25/2025 10:20 AM EDT COMPREHENSIVE METABOLIC PANEL Routine 01/25/2025 10:20 AM EDT documented in this encounter Results * High Sensitivity Troponin I (01/25/2025 10:20 AM EDT) Pathologist [facility] TROPONIN I HIGH SENSITIVITY <2.7 <3.5 - 17.0 ng/L [facility] Comment:The Casas high sens itivity Troponin-I results should beused in conjunction with other diagnostic information suchas ECG, clinical observations and information, and patientsymptoms to aid in the diagnosis of MD. 01/25/2025 10:2 0 AM EDT 01/25/2025 10:23 AM EDT us Generic External Data Provider LAB BLOOD ORDERAB LES Final Result [facility] [address] [place] [phone] * (ABNORMAL) Comprehensive Metabolic Panel (01/25/2025 10:20 AM EDT) Pathologist [facility] Sodium 140 135 - 145 mmol/L [facility] Potassium 3.5 3.3 - 5.1 mmol/L [facility] Chloride 109(H) 96 - 108 mmol/L [facility] Carbon Dioxide 26 22 - 29 mmol/L [facility] Anion Gap 9(L) 12 - 20 [facility] Urea Nitrogen (BUN) 7(L) 9 - 16 mg/dL [facility] Creatinine, Serum 0.80 0.5 - 1.4 mg/dL [facility] Creatinine Clr Calc Pharmacy 89.8 [facility] Comment:Provided height and weight: 160.02 cm,78.3 kg.eGFR (calculated from the MDRD study equation) and eCrCl(calculated from the Cockcroft-Gault equation) are based ondifferent parameters and may not yield comparable results.If eCrCl result is absurd, please check patient'sheight/weight. Estimated Glomerular Filt Rate >60 [facility] Comment:Chronic Kidney Disea se: Estimated GFR < 60 mL/min/1.41r9Exovtw Kidney Disease: Estimated GFR < 15 mL/min/1.73m2 Glucose 103 60 - 115 mg/dL [facility] Calcium 8.9 8.4 - 10.2 mg/dL [facility] Bilirubin, Total 0.4 0.0 - 1.0 mg/dL [facility] Aspartate Amino Transferase 24 5 - 31 U/L [facility] Alanine Aminotransferase 16 0 - 31 U/L [facility] Total Protein 7.0 6.5 - 8.0 g/dL [facility] Albumin Level 3.6 3.5 - 5.0 g/dL [facility] Alkaline Phosphatase 72 39 - 117 U/L [facility] 01/25/2025 10:2 0 AM EDT 01/25/2025 10:23 AM EDT us Generic External Data Provider LAB BLOOD ORDERAB LES Final Result [facility] [address] [place], [place] [phone] * (ABNORMAL) CBC auto differential (01/25/2025 10:20 AM EDT) White Blood Count 6.5 4.8 - 10.8 X10*3/uL [facility] Red Blood Count 5.18 4.20 - 5.50 X10*6/uL [facility] Hemoglobin 13.6 12.0 - 16.0 g/dl [facility] Hematocrit 41.9 37.0 - 47.0 % [facility] Mean Corpuscular Volume 80.9 80.0 - 98.0 fL [facility] Mean Corpuscular Hemoglobin 26.3(L) 27.0 - 33.0 pg [facility] Mean Corpuscular HGB Conc 32.5 31.0 - 35.0 g/dl [facility] Red Cell Distribution Width 13.7 11.0 - 16.0 % [facility] Platelet Count 275 160 - 400 X10*3/uL [facility] Mean Platelet Volume 9.6 9.4 - 12.3 fL [facility] Neutrophils Percent Auto 71.4 45 - 73 % [facility] Imm Gran Pct Auto 0.5(H) 0.0 - 0.4 % [facility] Lymphocytes Percent Auto 19.8(L) 20 - 40 % [facility] Monocytes Percent Auto 6.5 2 - 11 % [facility] Eosinophils Percent Auto 1.2 0 - 4 % [facility] Basophils Percent Auto 0.6 0 - 2 % [facility] NRBC Pct Auto 0.0 0.0 - 0.2 /100WBC [facility] Neutrophils Absolute Auto 4.6 2.0 - 8.3 x10*3/uL [facility] Imm Gran Abs Auto 0.03 0.00 - 0.03 X10*3/uL [facility] Lymphocytes Absolute Auto 1.3 1.2 - 4.9 X10*3/uL [facility] Monocytes Absolute Auto 0.4 0.1 - 1.2 X10*3/uL [facility] Eosinophils Absolute Auto 0.1 0.0 - 0.4 X10*3/uL [facility] Basophils Absolute Auto 0.0 0.0 - 0.2 X10*3/uL [facility] NRBC Abs Auto 0.000 0.0 - 0.012 X10*3/uL [facility] 01/25/2025 10:2 0 AM EDT 01/25/2025 10:23 AM EDT us Generic External Data Provider LAB BLOOD ORDERAB LES Final Result Performing Organization Address City/State/[facility] Co de Phone Number [facility] [address] [place] [phone] documented in this encounter Visit Diagnoses Not on filedocumented in this encounter Additional Health Concerns Assessment Noted Time PHQ-9 Depression Total Score: 17 11/23/ 025 3:24 PM EST documented as of this encounter Care Teams Support Assistant Relationship Specialty Start Date End Date Teena Castillo MD [address] [place] [phone] PCP - General Family Medicine 03/18/19 documented as of this encounter
--- OUTSIDE RECORDS SUMMARY | 2025-01-25 14:01 | XMS_ITS | Encounter Summary ---
Author Organization [employer] Address [address] [facility] [address] [facility] [address] [place] [address] Care Team Providers Care Tieing Machine Operator Name Role Phone Teena Castillo MD Primary Care Provide r Reason for Visit * Reason Comments Dental Pain UL pain when she eat s, pt feels like she is swollen. Started a week ago Encounter Details Date Type Department Care Team (Late st Contact Info) Description 01/20/2025 11:30 AM EDT Office Visit [facility] [address] [place] [address] George Melchoranpreet [address] [place] [address] Social History Tobacco Use Types Packs/Day Years [...] your housing situation today? I have arnulfo alpesh 06/15/[address] you li [...] AM EDT documented as of this encounter Last Filed Vital Signs Vital Sign Reading Time Taken Comments Blood Pressure 116/70 01/20/2025 11:29 AM EDT Pulse - - Temperature - - Respiratory Rate - - Oxygen Saturation - - Inhaled Oxygen Concentration - - Weight - - Height - - Body Mass Index - - documented in this encounter Progress Notes * Sara Melchor - 01/20/2025 11:30 AM EDT Images from the original note were not included. Dental procedures in this visit D0140 - LIMITED ORAL EVALUATION - PROBLEM FOCUSED (Completed) Service provider: Sara Melchor Billing provider: Sara Melchor [id number] - INTRAORAL - PERIAPICAL FIRST RADIOGRAPHIC IMAGE (Completed) Service provider: Sara Melchor Billing provider: Sara Melchor [id number] - BITEWING - SINGLE RADIOGRAPHIC IMAGE (Completed) Service provider: Sara Melchor [place] provider: Sara Melchor [id number] - CASE PRESENTATION, DETAILED AND EXTENSIVE TREATMENT PLANNING (Completed) Service provider: Sara Melchor Bill[place]essa provider: Sara Melchor Patient ID: Dara Garcia is a 44 y.o. adult. Time Out: Timeout Date: 01/20/25 (emergency), Timeout Time: 1129 Location: [facility] Tooth: #12 and #13 Procedure: Exam and X-rays Verified the above with patient, medical assistant internal medicine, and provider. Confirmed via patient's chart, intraorally and by radiographs. Histologist: Yes. Language: Japanese. Histologist's Name: Lauri Chief Complaint Patient presents with Dental Pain UL pain when she eats, pt feels like she is swollen. Started a week ago Medical Hx: Vitals: Blood pressure 116/70. Past Medical History: Diagnosis Date Allergic rhinitis 12/07/2015 Arthritis 01/20/2025 Essential hypertension 12/07/2015 Medications: Outpatient Encounter Medications as of 01/20/2025 Medication Sig Dispense Refill acetaminophen (Tylenol) 500 MG tablet Take 1 tablet (500 mg) by mouth every 6 (six) hours if neededfor mild pain for up to 20 doses. 20 tablet 0 amLODIPine (Norvasc) 10 MG tablet TAKE 1 TABLET BY MOUTH EVERY DAY 90 tablet 1 amoxicillin (Amoxil) 500 MG capsule Take 1 capsule (500 mg) by mouth every 8 (eight) hours for 7 days. 21 capsule 0 B Complex Vitamins (B-Complex/B-12) tablet TAKE 1 TABLET BY MOUTH EVERY DAY 90 tablet 1 baclofen (Lioresal) 10 MG tablet TAKE 1 TABLET BY MOUTH THREE TIMES DAILY 90 tablet 0 chlorhexidine (Peridex) 0.12 % solution Swish 15 mL morning and night for 1 minute. Spit, do not swallow. Do not eat or drink for 30 minutes following use. 473 mL 0 cholecalciferol (Vitamin D High Potency) 25 MCG (1000 UT) capsule TAKE 1 CAPSULE BY MOUTH EVERY DAY90 capsule 1 Ferrous Sulfate (iron) 325 (65 Fe) MG tablet TAKE 1 TABLET BY MOUTH EVERY DAY 90 tablet 1 hydrALAZINE (Apresoline) 25 MG tablet TAKE 1 TABLET BY MOUTH THREE TIMES DAILY WITH FOOD 270 tablet1 hydroCHLOROthiazide 12.5 MG tablet Take 1 tablet (12.5 mg) by mouth Once per day. 30 tablet 11 ibuprofen 600 MG tablet Take 1 tablet (600 mg) by mouth every 6 (six) hours if needed for mild painfor up to 20 doses. 20 tablet 0 losartan (Cozaar) 100 MG tablet TAKE 1 TABLET BY MOUTH EVERY DAY 90 tablet 1 meclizine (Antivert) 25 MG tablet TAKE 2 TABLETS BY MOUTH TWICE DAILY NEEDED 120 tablet 5 metoprolol succinate XL (Toprol-XL) 50 MG 24 hr tablet TAKE 1 TABLET BY MOUTH EVERY MORNING DO NOT BREAK, CRUSH, DISSOLVE OR CHEW 90 tablet 1 Multiple Vitamin (Multivitamin) tablet TAKE 1 TABLET BY MOUTH EVERY DAY WITH FOOD 90 tablet 1 naproxen (Naprosyn) 500 MG tablet TAKE 1 TABLET BY MOUTH TWICE DAILY WITH FOOD NEEDED 60 tablet 5 prazosin (Minipress) 2 MG capsule take 1 capsule by oral route every bedtime 90 capsule 0 Tirzepatide-Weight Management (Zepbound) 7.5 MG/0.5ML solution Inject 7.5 mg under the skin 1 (one)time per week. 2 mL 0 Vitamins-Lipotropics (B Complex Formula 1, Lipotrop,) tablet TAKE 1 TABLET BY MOUTH EVERY DAY 90 tablet 1 No facility-administered encounter medications on file as of 01/20/2025. 44 y/o female presents for a limited exam seen by Dr. Sara Melchor, DMD. Chief Complaint: My upper left back tooth hurts and I think its swollen since a week Medical History: Patient does not report any changes in health issues that could alter the Treatment Plan. Medical consult / medical clearance needed: None Allergies: Reviewed in EHR Medications: Reviewed in EHR Radiographs X-rays taken today: 1 PA and 1 BW taken today Discussion: -Pt stated that patient has pain but no sensitivity to cold/hot/sweet/spicy foods and beverages. 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 - #12 Percussion +ve, palpation-ve and endo ice - lingering pain for 5-6 seconds. 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 Pt was also informed that decay is deep in #12 and is in close proximity to pulp. -Pt was also recommended comprehensive exam. -Pt was informed that pt needs to contact front tender for any financial queries related to recommended treatment. -OHI reviewed. Emphasis was laid on maintaining good oral hygiene regimen at home along with regular visits to dentist. -Pt understood, was satisfied with our conversation and agreed with tx plan; dismissed in good condition. -All questions answered. Soft tissue exam: redness and mild inflammation in relation to #12 and #13; OCS- negative Head and neck exam: Lymph Nodes, Lips, Palate, Buccal Mucosa, Floor of Mouth, Tongue, Tonsils, Alveolar Ridges, Oropharynx, Salivary Ducts, Vestibules - no abnormal findings. TMJ/Occlusal - TMJ is within normal limits. Oral Cancer Risk - low Oral Hygiene Instruction Provided - Yes Oral Hygiene Instructions: [place] two times daily, modified bell technique, Floss daily, Electric toothbrush, Soft bristle toothbrush, [place] Tongue. Referrals - None Treatment plan: -Caries control #12, #13 -JAJA Rx:Amoxicillin 500 mg every 8 hours for 7 days Acetaminophen 500 mg every 6 hours prn for pain - 20 tabs Ibuprofen 600 mg every 6 hours prn for pain - 20 tabs Peridex NV: Caries control #12, #13 Shipping Receiving Manager: Priscilla Ashford Dentist: Dr. Sara Melchor, DMD documented in this encounter Plan of Treatment Upcoming Encounters Date Type Department Care Team (Late st Contact Info) Description 01/31/2025 1:00 PM EDT Office Visit [facility] [address] [place] [address] Sara Melchor [address] [place] [address] 02/11/2025 2:15 PM EDT Office Visit [address] [address] Sean Lyles MD [address] [place] [phone] 02/17/2025 1:00 PM EDT Office Visit [address] [address] Teena Castillo MD [address] [place] [phone] Scheduled Orders Name Type Priority Associated Diagnoses Orde r Schedule 12 DO 12 DO RESIN-BASED COMPOSITE - 2 SURF, POSTERIOR Dental Routine [address] [place] 01/20/2025 13 MO 13 MO RESIN-BASED COMPOSITE - 2 SURF, POSTERIOR Dental Routine [address] [place] 01/20/2025 documented as of this encounter Procedures Procedure Name Priority Date/Time Associated Diagnosis Comments LIMITED ORAL EVALUATION - PROBLEM FOCUSED Routine 01/20/2025 11:30 AM EDT INTRAORAL - PERIAPICAL FIRST RADIOGRAPHIC IMAGE Routine 01/20/2025 11:30 AM EDT CASE PRESENTATION, DETAILED AND EXTENSIVE TREATMENT PLANNING Routine 01/20/2025 11:30 AM EDT BITEWING - SINGLE RADIOGRAPHIC IMAGE Routine 01/20/2025 11:30 AM EDT documented in this encounter Visit Diagnoses Not on filedocumented in this encounter Additional Health Concerns Assessment Noted Time PHQ-9 Depression Total Score: 17 11/23/ 025 3:24 PM EST documented as of this encounter Care Teams Tieing Machine Operator Relationship Specialty Start Date End Date Teena Castillo MD [address] [place] [address] PCP - General Family Medicine 03/18/19 documented as of this encounter
--- OUTSIDE RECORDS SUMMARY | 2025-01-25 14:01 | XMS_ITS | Clinical Summary ---
Author Organization [facility] ity Address [address] [place] [address] Care Team Providers Care Dairy Nutrition Consultant Name Role Phone Teena Castillo MD Primary [...] age to complete this topic Care Teams Dairy Nutrition Consultant Relationship Specialty Start Date End Date Teena Castillo MD [address] [place] [phone] PCP - General Internal Medicine 12/31/21
--- OUTSIDE RECORDS SUMMARY | 2025-01-25 14:01 | XMS_ITS | Encounter Summary ---
Author Organization [employer] Address [address] [place] [address] Care Team Providers Care Scrap Separator Name Role Phone Teena Castillo MD Primary Care Provide r Reason for Visit * Reason Comments Med Refill Encounter Details Date Type Department Care Team ([facility] st Contact Info) Description 08/11/2023 Refill [facility] [address] [place], [place] [phone] Nahid Mak MD [address] [place] [address] Essential hypertension Social History Tobacco Use Types [...] Description 01/31/2025 1:00 PM EDT Office Visit [facility] [address] [place] [address] George Melchoranpreet [address] [place] [address] 02/11/2025 2:15 PM EDT Office Visit [facility] [address] [place] [address] Sean Lyles MD [address] [place] [address] 02/17/2025 1:00 PM EDT Office Visit [address] [address] Teena Castillo MD [address] [place] [phone] documented as of this encounter Visit Diagnoses Diagnosis Essential hypertension Unspecified essential hypertension documented in this encounter Additional Health Concerns Assessment Noted Time PHQ-9 Depression Total Score: 0 04/04/20 23 2:14 PM EDT documented as of this encounter Care Teams Scrap Separator Relationship Specialty Start Date End Date Teena Castillo MD [address] [place] [phone] PCP - General Family Medicine 03/18/19 documented as of this encounter
--- OUTSIDE RECORDS SUMMARY | 2025-01-25 14:01 | XMS_ITS | Encounter Summary ---
Author Organization [employer] Address [address] [facility] [address] [place] [address] Care Team Providers Care Landmen Name Role Phone Teena Castillo MD Primary Care Provide r Reason for Visit * Reason Comments Med Refill Encounter Details Date Type Department Care Team ([facility] st Contact Info) Description 01/21/[address] [facility] [address] [place], [place] [phone] Teena Castillo MD [address] [place], [place] [phone] Class 2 severe obesity due to excess [...] Description 01/31/2025 1:00 PM EDT Office Visit [facility] [address] [place], [place] [phone] MelchorGeorge legerapril [address] [place] [address] 02/11/2025 2:15 PM EDT Office Visit [facility] [address] [place] [phone] Sean Lyles MD [address] [place] [phone] 02/17/2025 1:00 PM EDT Office Visit [facility] [address] [place] [phone] Teena Castillo MD [address] [place] [phone] documented as of this encounter Visit Diagnoses Diagnosis Class 2 severe obesity due to excess calories with serious comorbidity and body mass index (BMI) of 37.0 to 37.9 in adult (CMS/HCC) documented in this encounter Additional Health Concerns Assessment Noted Time PHQ-9 Depression Total Score: 17 11/23/ 025 3:24 PM EST documented as of this encounter Care Teams Landmen Relationship Specialty Start Date End Date Teena Castillo MD [address] [place] [address] PCP - General Family Medicine 03/18/19 documented as of this encounter
--- OUTSIDE RECORDS SUMMARY | 2025-01-25 14:02 | XMS_ITS | Clinical Summary ---
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 Teena Castillo MD Primary Care Provide r Allergies Active Allergy Reactions Criticality Noted Date Comments Trell Inhibitors Cough 10/08/2010 Medications prazosin (Minipress) 2 MG capsuleIndicati ons:PTSD (post-traumatic stress disorder) take 1 capsule by oral route every bedtime 90 capsule 022 Active B Complex Vitamins (B-Complex/B-12 ) tabletIndicatio ns:Vitamin deficiency TAKE 1 TABLET BY MOUTH EVERY DAY 90 tablet 1 024 Active cholecalciferol (Vitamin D High Potency) 25 MCG (1000 UT) capsuleIndicati ons:Vitamin deficiency TAKE 1 CAPSULE BY MOUTH EVERY DAY 90 capsule 1 024 Active hydroCHLOROthia zide 12.5 MG tabletIndicatio ns:Essential hypertension Take 1 tablet (12.5 mg) by mouth Once per day. 30 tablet 11 024 2024 Active meclizine (Antivert) 25 MG tabletIndicatio ns:Dizziness TAKE 2 TABLETS BY MOUTH TWICE DAILY NEEDED 120 tablet 5 024 Active naproxen (Naprosyn) 500 MG tabletIndicatio ns:Pain TAKE 1 TABLET BY MOUTH TWICE DAILY WITH FOOD NEEDED 60 tablet 5 024 Active Multiple Vitamin (Multivitamin) tabletIndicatio ns:Vitamin deficiency TAKE 1 TABLET BY MOUTH EVERY DAY WITH FOOD 90 tablet 1 024 Active hydrALAZINE (Apresoline) 25 MG tabletIndicatio ns:Essential hypertension TAKE 1 TABLET BY MOUTH THREE TIMES DAILY WITH FOOD 270 tablet 1 Active metoprolol succinate XL (Toprol-XL) 50 MG 24 hr tablet TAKE 1 TABLET BY MOUTH EVERY MORNING DO NOT BREAK, CRUSH, DISSOLVE OR CHEW 90 tablet 1 024 Active baclofen (Lioresal) 10 MG tabletIndicatio ns:Fibromyositi s TAKE 1 TABLET BY MOUTH THREE TIMES DAILY 90 tablet 025 Active Vitamins-Lipotr opics (B Complex Formula 1, Lipotrop,) tabletIndicatio ns:Vitamin deficiency, unspecified TAKE 1 TABLET BY MOUTH EVERY DAY 90 tablet 1 025 Active losartan (Cozaar) 100 MG tabletIndicatio ns:Primary hypertension TAKE 1 TABLET BY MOUTH EVERY DAY 90 tablet 1 025 Active amLODIPine (Norvasc) 10 MG tabletIndicatio ns:Primary hypertension TAKE 1 TABLET BY MOUTH EVERY DAY 90 tablet 1 025 Active Ferrous Sulfate (iron) 325 (65 Fe) MG tabletIndicatio ns:Vitamin deficiency TAKE 1 TABLET BY MOUTH EVERY DAY 90 tablet 1 025 Active amoxicillin (Amoxil) 500 MG capsule Take 1 capsule (500 mg) by mouth every 8 (eight) hours for 7 days. 21 capsule 025 2024 Active acetaminophen (Tylenol) 500 MG tablet Take 1 tablet (500 mg) by mouth every 6 (six) hours if needed for mild pain for up to 20 doses. 20 tablet Active ibuprofen 600 MG tablet Take 1 tablet (600 mg) by mouth every 6 (six) hours if needed for mild pain for up to 20 doses. 20 tablet 025 Active chlorhexidine (Peridex) 0.12 % solution Swish 15 mL morning and night for 1 minute. Spit, do not swallow. Do not eat or drink for 30 minutes following use. 473 mL 025 Active Tirzepatide-Jem ght Management (Zepbound) 10 MG/0.5ML solution auto-injectorIn dications:Class 2 severe obesity due to excess calories with serious comorbidity and body mass index (BMI) of 37.0 to 37.9 in adult ([facility]) Inject 0.5 mL (10 mg) under the skin 1 (one) time per week. INJECT ONE PEN (=10 MG) SUBCUTANEOUSLY ONCE A WEEK 2 mL 025 Active Tirzepatide-Jem ght Management (Zepbound) 7.5 MG/0.5ML solutionIndicat ions:Class 2 severe obesity due to excess calories with serious comorbidity and body mass index (BMI) of 37.0 to 37.9 in adult ([facility]) Inject 7.5 mg under the skin 1 (one) time per week. 2 mL 025 2024 Discontinued Active Problems Problem Noted Date Diagnosed Date Arthritis 01/20/2025 Bipolar 1 disorder 01/20/2025 Class 1 obesity 01/20/2025 History of gastric restrictive surgery Migraines 01/20/2025 Dyspnea on exertion 08/19/2024 Assessment & Plan [...] Encounters Date Type Department Care Team Description 01/25/2025 Orders Only GENERIC EXTERNAL DATA DEPARTMENT Provider, Generic External Data 01/21/2025 Refill [facility] [address] [place] [phone] Teena Castillo MD Class 2 severe obesity due to excess calories with serious comorbidity and body mass index (BMI) of 37.0 to 37.9 in adult ([facility]) 01/20/2025 11:30 AM EDT Office Visit [facility]ULT [facility] [address] [place] [address] Sara Melchor 01/14/2025 Orders Only GENERIC EXTERNAL DATA DEPARTMENT Provider, Generic External Data 12/24/2024 Telephone [facility] [address] [place] [address] Teena Castillo MD TELEPHONE CALL 12/22/2024 Telephone [facility] [address] [place] [address] [phone] Teena Castillo MD Prior Auth Prescription; Prior Authorization ( [place] Request: Zepbound) 12/21/[address] [address] Teena Castillo MD Call Back Request 12/20/2024 Orders Only [facility] [address] [place] [phone] Teena Castillo MD Morbid obesity (CMS/HCC) (Primary Dx); Class 2 severe obesity due to excess calories with serious comorbidity and body mass index (BMI) of 37.0 to 37.9 in adult (CMS/HCC) 12/20/[address] [address] Teena Castillo MD Medication Question 12/10/2024 [facility] Risk Score [facility] () Department [address] [place] [phone] Provider, Population Health Generic 11/23/2024 3:15 PM EST Office Visit [address] [address] Teena Castillo MD Dyspnea on exertion (Primary Dx); Essential hypertension 11/23/2024 Travel 11/18/[address] [address] Teena Castillo MD Chart Prep 11/10/[address] [phone] Teena Castillo MD Vitamin deficiency, unspecified; Primary hypertension; Vitamin deficiency 11/09/2024 Patient Outreach [address] [phone] Teena Castillo MD Pre-visit Planning ((Unable to reach for PVP screening, LVM)) from Last 3 Months Immunizations Name Administration [...] Pressure 116/70 01/20/2025 11:29 AM EDT Pulse 85 11/23/2024 3:07 PM EST Temperature [...] Description 01/31/2025 1:00 PM EDT Office Visit [facility]ULT [facility] [address] [place], [place] [phone] George Melchoranpreet [address] [place] [address] 02/11/2025 2:15 PM EDT Office Visit [facility] [address] [place] [address] Sean Lyles MD [address] [place] [address] 02/17/2025 1:00 PM EDT Office Visit [facility] [address] [place] [address] Teena Castillo MD [address] [place] [address] Health Maintenance Due Date Last Done Comments Dental Oral Exam 1980 Dental Prophylaxis 1980 Dental X-Ray: Full Mouth 1980 HIV Screening 1980 Family Planning (PISQ) 1996 Hepatitis B Vaccines (1 of 3 - 19+ 3-dose series) 2000 DTaP/Tdap/Td Vaccines (2 - Td or Tdap) 08/14/2021 08/14/2011 COVID-19 Vaccine ( - season) 2024 04/12/2021, 03/22/2021 Influenza Vaccine (#1) 2024 9, 07/07/2014, 10/26/2013, Additional history exists Alcohol/Substance Use Screening 06/15/2025 06/15/2024 SDOH Screening 06/15/2025 06/15/2024 Mammogram 09/01/2025 09/01/2024, 07/25/2023 Depression Screening 11/23/2025 11/23/2024, 11/23/19 Tobacco Screening 01/20/2026 01/20/2025 Dental X-Ray: Bitewings 01/21/2026 01/20/2025 Pap Smear 05/01/2026 05/01/2023 Cervical Cancer Screening [...] TROPONIN I Routine 01/25/2025 10:20 AM EDT COMPREHENSIVE METABOLIC PANEL Routine 01/25/2025 10:20 AM EDT CBC WITH AUTO DIFFERENTIAL Routine 01/25/2025 10:20 AM EDT CASE PRESENTATION, DETAILED AND EXTENSIVE TREATMENT PLANNING Routine 01/20/2025 11:30 AM EDT BITEWING - SINGLE RADIOGRAPHIC IMAGE Routine 01/20/2025 11:30 AM EDT INTRAORAL - PERIAPICAL FIRST RADIOGRAPHIC IMAGE Routine 01/20/2025 11:30 AM EDT LIMITED ORAL EVALUATION - PROBLEM FOCUSED Routine 01/20/2025 11:30 AM EDT BASIC METABOLIC PANEL Routine 01/14/2025 10:29 AM EDT PROTHROMBIN TIME-INR Routine 01/14/2025 10:29 AM EDT [...] Recently Relevant to Health Maintenance Results * High Sensitivity Troponin I (01/25/2025 10:20 AM EDT) [facility] TROPONIN I HIGH SENSITIVITY <2.7 <3.5 - 17.0 ng/L [facility] Comment:The Casas high sens itivity Troponin-I results should beused in conjunction with other diagnostic information suchas ECG, clinical observations and information, and patientsymptoms to aid in the diagnosis of SC. 01/25/2025 10:2 0 AM EDT 01/25/2025 10:23 AM EDT us Generic External Data Provider LAB BLOOD ORDERAB LES Final Result [facility] [address] [place] [address] [phone] * (ABNORMAL) CBC auto differential (01/25/2025 10:20 AM EDT) Only the most recent of2 resultswithin the time period is included. [facility] White Blood Count 6.5 4.8 - 10.8 X10*3/uL [facility] Red Blood Count 5.18 4.20 - 5.50 X10*6/uL [facility] Hemoglobin 13.6 12.0 - 16.0 g/dl [facility] Hematocrit 41.9 37.0 - 47.0 % [facility] Mean Corpuscular Volume 80.9 80.0 - 98.0 fL [facility] Mean Corpuscular Hemoglobin 26.3(L) 27.0 - 33.0 pg [facility] Mean Corpuscular HGB Conc 32.5 31.0 - 35.0 g/dl [facility] Red Cell Distribution Width 13.7 11.0 - 16.0 % [facility] Platelet Count 275 160 - 400 X10*3/uL [facility] Mean Platelet Volume 9.6 9.4 - 12.3 fL [facility] Neutrophils Percent Auto 71.4 45 - 73 % [facility] Imm Gran Pct Auto 0.5(H) 0.0 - 0.4 % [facility] Lymphocytes Percent Auto 19.8(L) 20 - 40 % [facility] Monocytes Percent Auto 6.5 2 - 11 % [facility] Eosinophils Percent Auto 1.2 0 - 4 % [facility] Basophils Percent Auto 0.6 0 - 2 % [facility] NRBC Pct Auto 0.0 0.0 - 0.2 /100WBC [facility] Neutrophils Absolute Auto 4.6 2.0 - 8.3 x10*3/uL [facility] Imm Gran Abs Auto 0.03 0.00 - 0.03 X10*3/uL [facility] Lymphocytes Absolute Auto 1.3 1.2 - 4.9 X10*3/uL [facility] Monocytes Absolute Auto 0.4 0.1 - 1.2 X10*3/uL [facility] Eosinophils Absolute Auto 0.1 0.0 - 0.4 X10*3/uL [facility] Basophils Absolute Auto 0.0 0.0 - 0.2 X10*3/uL [facility] NRBC Abs Auto 0.000 0.0 - 0.012 X10*3/uL [facility] 01/25/2025 10:2 0 AM EDT 01/25/2025 10:23 AM EDT us Generic External Data Provider LAB BLOOD ORDERAB LES Final Result [facility] [address] [place] [phone] * (ABNORMAL) Comprehensive Metabolic Panel (01/25/2025 10:20 AM EDT) Only the most recent of2 resultswithin the time period is included. Sodium 140 135 - 145 mmol/L [facility] Potassium 3.5 3.3 - 5.1 mmol/L [facility] Chloride 109(H) 96 - 108 mmol/L [facility] Carbon Dioxide 26 22 - 29 mmol/L [facility] Anion Gap 9(L) 12 - 20 [facility] Urea Nitrogen (BUN) 7(L) 9 - 16 mg/dL [facility] Creatinine, Serum 0.80 0.5 - 1.4 mg/dL [facility] Creatinine Clr Calc Pharmacy 89.8 [facility] Comment:Provided height and weight: 160.02 cm,78.3 kg.eGFR (calculated from the MDRD study equation) and eCrCl(calculated from the Cockcroft-Gault equation) are based ondifferent parameters and may not yield comparable results.If eCrCl result is absurd, please check patient'sheight/weight. Estimated Glomerular Filt Rate >60 [facility] Comment:Chronic Kidney Disea se: Estimated GFR < 60 mL/min/1.18w9Juamyc Kidney Disease: Estimated GFR < 15 mL/min/1.73m2 Glucose 103 60 - 115 mg/dL [facility] Calcium 8.9 8.4 - 10.2 mg/dL [facility] Bilirubin, Total 0.4 0.0 - 1.0 mg/dL [facility] Aspartate Amino Transferase 24 5 - 31 U/L [facility] Alanine Aminotransferase 16 0 - 31 U/L [facility] Total Protein 7.0 6.5 - 8.0 g/dL [facility] Albumin Level 3.6 3.5 - 5.0 g/dL [facility] Alkaline Phosphatase 72 39 - 117 U/L [facility] 01/25/2025 10:2 0 AM EDT 01/25/2025 10:23 AM EDT us Generic External Data Provider LAB BLOOD ORDERAB LES Final Result [facility] [address] [place] [address] [phone] * Prothrombin Time-INR (01/14/2025 10:29 AM EDT) Prothrombin Time 12.1 10.9 - 12.4 SEC [facility] INTERNATIONAL NORM RATIO 1.0 0.9 - 1.1 [facility] Comment:INTERNATIONAL NORMAL IZED RATIO (INR) [...] Provider LAB BLOOD ORDERAB LES Final Result [facility] [address], [place] [phone] * (ABNORMAL) CBC (01/14/2025 10:29 AM EDT) White Blood Count 6.2 4.8 - 10.8 X10*3/uL [facility] Red Blood Count 5.05 4.20 - 5.50 X10*6/uL [facility] Hemoglobin 13.3 12.0 - 16.0 g/dl [facility] Hematocrit 41.3 37.0 - 47.0 % [facility] Mean Corpuscular Volume 81.8 80.0 - 98.0 fL [facility] Mean Corpuscular Hemoglobin 26.3(L) 27.0 - 33.0 pg [facility] Mean Corpuscular HGB Conc 32.2 31.0 - 35.0 g/dl [facility] Red Cell Distribution Width 13.5 11.0 - 16.0 % [facility] Platelet Count 241 160 - 400 X10*3/uL [facility] Mean Platelet Volume 9.9 9.4 - 12.3 fL [facility] NRBC Pct Auto 0.0 0.0 - 0.2 /100WBC [facility] NRBC Abs Auto 0.000 0.0 - 0.012 X10*3/uL [facility] 01/14/2025 10:2 9 AM EDT 01/14/2025 10:29 AM EDT us Generic External Data Provider LAB BLOOD ORDERAB LES Final Result Performing Organization Address City/[facility]/ZIP Co de Phone Number [facility] [address] [place] [phone] * (ABNORMAL) Basic Metabolic Panel (01/14/2025 10:29 AM EDT) Pathologist [facility] Sodium 140 135 - 145 mmol/L [facility] Potassium 3.2(L) 3.3 - 5.1 mmol/L [facility] Chloride 106 96 - 108 mmol/L [facility] Carbon Dioxide 28 22 - 29 mmol/L [facility] Anion Gap 9(L) 12 - 20 [facility] Urea Nitrogen (BUN) 11 9 - 16 mg/dL [facility] Creatinine, Serum 0.79 0.5 - 1.4 mg/dL [facility] Estimated Glomerular Filt Rate >60 [facility] Comment:Chronic Kidney Disea se: Estimated GFR < 60 mL/min/1.16u2Ivjeor Kidney Disease: Estimated GFR < 15 mL/min/1.73m2 Glucose 81 60 - 115 mg/dL [facility] Calcium 9.1 8.4 - 10.2 mg/dL [facility] 01/14/2025 10:2 9 AM EDT 01/14/2025 10:29 AM EDT us Generic External Data Provider LAB BLOOD ORDERAB LES Final Result Performing Organization Address City/[facility]/ZIP Co de Phone Number [facility] [address] [place] [phone] * Vitamin D, 25-Hydroxy, Total, Immunoassay (12/22/2024 8:37 AM EDT) Pathologist [facility] Vitamin D 25-OH Total 44.0 >30 ng/mL [facility] Comment: Health Based Reference Values*< 20 ??ng/mL ??Wqvitbalh15-33 ng/mL ??Insufficient> 30 ??ng/mL ??Sufficient*Rosie MIRANDA. N [...] Otoole MD LAB BLOOD ORDERABLES Final Result [facility] [address], [place] [phone] * Vitamin B12/Folate, Serum Panel (12/22/2024 8:37 AM EDT) Vitamin B12 833 200 - 900 pg/mL [facility] Comment:NORMAL 200-900 PG/ML INDETERMINATE 160-199 PG/ML DEFICIENT < 160 PG/ML Folate 13.8 > or = 4.0 ng/mL [facility] Comment:Reference Values:> o r = 4.0 ng/mL< 4.0 ng/mL suggests folate deficiency Methotrexate, aminopterin and folinic acid(leucovorin) are chemotherapeutic agents whose molecularstructures are similar to folate; therefore, the Architectfolate assay cannot be used for patients using these drugs. Blood Venous blood specimen / Unknown 12/22/2024 8:37 AM EDT 12/22/2024 11:08 AM EDT Teena Otoole MD LAB BLOOD ORDERABLES Final Result Performing Organization Address City/[facility]/ZIP Co de Phone Number [facility] [address] [place] [phone] * TSH W/Reflex to FT4 (12/22/2024 8:37 AM EDT) TSH reflex Free T4 1.65 0.32 - 4.0 uIU/mL [facility] Blood Venous blood specimen / Unknown 12/22/2024 8:37 AM EDT 12/22/2024 11:05 AM EDT us Teena Otoole MD LAB BLOOD ORDERABLES Final Result Performing Organization Address [facility] Co de Phone Number [facility] [address] [place] [phone] * Lipid Panel, Standard (12/22/2024 8:37 AM EDT) Triglycerides 61 <150 mg/dL [facility] Comment:Desirable Triglyceri de: less than 150 mg/dLBorderline High Triglyceride 150-199 mg/dLHigh Triglyceride: 200-499 mg/dLVery High Triglyceride: greater than or equal to 5OO mg/dL Cholesterol 155 <200 mg/dL [facility] Comment:Desirable Cholestero l: less than 200 mg/dLBorderline High Cholesterol: 200-239 mg/dLHigh Cholesterol: greater than 239 mg/dL LDL Cholesterol Calculated 89 <100 mg/dL [facility] Comment:Desirable LDL: less than 100 mg/dLNear Optimal/Above Optimal LDL: 110- 129 mg/dLBorderline High LDL: 130-159 mg/dLHigh LDL: 160-189 mg/dLVery High LDL: greater than or equal to 190 mg/dL HDL Cholesterol 54 >40 mg/dL [facility] Comment:Desirable HDL: great er than 40 mg/dL Note: This HDL assay may give artificially low results in patients with liver disease. Blood Venous blood specimen / Unknown 12/22/2024 8:37 AM EDT 12/22/2024 11:05 AM EDT us Teena Otoole MD LAB BLOOD ORDERABLES Final Result [facility] [address] [place] [address] [phone] * BI Mammogram Screening Tomosynthesis Bilateral (09/01/2024 11:55 AM EST) Anatomical Region Laterality Modality Breast Bilateral Mammography 09/01/2024 11:5 5 AM EST Narrative 09/07/2024 3:10 PM EST ? [facility] ? [address] ?[place] [address] ? Mammography Report ? Signed ? Patient: Garcia,Dara ?MR#: [id number] ?? 47 ? : 1980 ?Acct:[id number] ? Age/Sex: 44 / F ?ADM Date: 09/01/ ? Loc: HO.MAMMO ? Attending Dr: Teena Otoole MD ? Ordering Physician: Teena Castillo MD ?Results: ?? 1Negative ? Date of Service: 12/01/20 ?Follow Up: 1 Year From Orig ?? inal Mammogram ? Procedure(s): MM tomosynthesis screening BI ?? Accession Number(s): [id number] ? cc: Teena Castillo MD ? EXAMINATION: [...] DD/ 1155 ? TD/TT: 09/01/24 1205 ? Programming Instructor: ? Procedure Note Ilda Cleveland - 09/07/2024 Sandy [facility] [address] [place], [place] [address] Mammography Report Signed Patient: Angi Garcia#: [id number] 47 : 1980Acct:[id number] Age/Sex: 44 / FADM Date: 09/01/24 Loc: HO.MAMMO Attending Dr: Teena Otoole MD Ordering Physician: Teena Castillo MDResults: 1Negative Date of Service: 09/01/24Follow Up: 1 Year From Orig inal Mammogram Procedure(s): MM tomosynthesis screening BI Accession Number(s): [id number] cc: Teena Castillo MD EXAMINATION: MM SCREENING [...] by: Liudmila Erickson DO 09/07/2024 03:[address] [facility] Dictated By: Liudmila Erickson DO Signed By: <Electronically signed by Liudmila Erickson DO in OV> 09/07/24 1507 DD/ 1155 TD/TT: 09/01/24 1205 Programming Instructor: Teena Otoole MD IMG BI PROCEDURES Fin al Result * Hepatitis C Antibody with Reflex to HCV, RNA, Quantitative, Real-Time PCR (02/11/2024 6:14 AM EDT) Hepatitis C Antibody Nonreactive Nonreactive [facility] Comment:Antibodies to HCV no t detected; does not exclude early acuteHCV infection. Blood Venous blood specimen / Unknown 02/11/2024 6:14 AM EDT 02/11/2024 6:14 AM EDT us Teena Otoole MD LAB BLOOD ORDERABLES Final Result Performing Organization Address [facility]/ZIP Co de Phone Number [facility] [address] [place] [phone] * HPV mRNA E6/E7 w/Reflex to HPV Genotypes 16, 18/45 (05/01/2023 12:00 AM EDT) HPV nRNA E6/E7 Not Detected Not Detected [facility] Comment:Methodology: Transcr iption-Mediated AmplificationThis assay detects E6/E7 viral messenger RNA (mRNA) from 14high-risk HPV types (16,18,31,33,35,39,45,51,52,56,58,59,66,68).Cervical sources are required for HPV testing.If a vaginal source from a patient who has had atotal hysterectomy with removal of cervix wassubmitted, please contact the testing laboratoryfor alternative testing options.For additional information, please refer [email or web address](This link if provided for information/educational purposes only.)THIS TEST WAS PERFORMED AT:[facility] [facility] [place] [phone] JUÁREZ MD HPV mRNA E6/E7 [facility] HPV 16 RNA [facility] HPV 18/45 RNA [facility] 05/01/2023 05/02/2023 10: 15 AM EDT us Rachel Gaytan CNM LAB CYTOLOGY ORDERABLES F inal Result Performing Organization Address [facility]/ZIP Co de Phone Number [facility] [address] [place] [phone] * Pap Smear (05/01/2023 12:00 AM EDT) 05/01/2023 05/02/2023 10: 15 AM EDT Narrative [facility] - 05/24/2023 4:11 PM EDT ----- ------- Name: JoseDara ? Age/Sex: 42/F ? : 1980 Unit#: [id number] ?? Attend Dr: RACHEL GAYTAN CNM ?Re05/01/23 ?Status: DEP REF ? Location: HO.HHCLNP ? Disch: ? ----- ------- SPEC : [id number] ?RECD: 05/02/23-5 ? STATUS: ??SOUT ? REQ NUM: [id number] ? SUDARSHAN: 05/01/23-0000 ? SUBM DR: RACHEL [...] 66, 68) ? HPV testing performed by [facility], [place], [place]. ??See reference laboratory ?? portion of the EMR for entire report. ?Clinical Information LMP:Unknown date Previous PAP test:Unknown date/findings ? Material Received ?? ThinPrep-Cervical ----- ------- Signed (signature on file) Meseret Lamas Idalmis 05/24/23 1611 ? ----- ------- ? END OF REPORT ? 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
--- NOTE | 2025-01-25 14:15 | P.HPHOSP_ITS ---
History of Present Illness Date of Service: 01/25/25 Chief Complaint: chest pain A 44 years old lady with PMH of Gastric sleeve surgery, Bipolar, Depression, TERESO, GERD and Angina who presents to ED with chest pain since last night. The patient scheduled for Angiogram at [facility] mid January for recurrent chest pain and abnormal recent Echo. Today presenting after a night of recurrent chest pain. No palpitations, SOB, nausea, vomiting, diarrhea or urinary symptoms. she reports getting short of breath with little efforts with heaviness in her chest. Echo outpatient showed inferior wall motion abnormalities. In ED, EKG not showing any ST\T wave changes. First Trop Negative. Evaluated by cardiology who recommended full dose Lovenox and plan to transfer to [facility] for urgent Angiogram during this hospital stay. Admitted for further management pending transfer. Review of Systems 2 Review of Systems: No fever, chills or weakness having chest pain, no palpitation No shortness of breath or coughing No abdominal pain, nausea or vomiting No urinary symptoms No any rash or wounds [facility] Medical History Steatosis, liver BMI 38.0-38.9,adult BMI 39.0-39.9,adult Obesity Vitamin A deficiency H. pylori infection GERD (gastroesophageal reflux disease) Obstructive sleep apnea on CPAP Morbid obesity Excessive daytime sleepiness Anemia Bipolar 1 disorder Depression Arthritis Migraine Fibromyalgia Sleep apnea Vertigo HTN (hypertension) Family History Mother Hypertension Heart problem Arthritis Diabetes Pacemaker Father Vitiligo Sister No problems noted. Sister No problems noted. Sister No problems noted. Sister No problems noted. Sister No problems noted. Brother No problems noted. Brother No problems noted. Son No problems noted. Son No problems noted. Surgical History S/P laparoscopic sleeve gastrectomy Hx of tubal ligation Hx of section Social History Household Members: Spouse and Children Are you a primary nursing care partner to a significant other at home: No Do you presently have visiting nurse or other home services: No Alcohol intake: current Alcohol intake frequency: does not drink Patient Tobacco Use Status: Never used Tobacco Smoked in Last 30 Days: No Use of substances other than those prescribed or required for medical reasons: No Advance Directives: No Advance Directives Information Provided: Yes Do you have a plan to hurt others: No Plan Patient : No service: No Current occupational status: disabled Meds Allergies Allergy/AdvReac Type Severity Reaction Status Date / Time No Known Allergies Allergy Verified 01/25/25 10:34 Active Medications: Current Medications Acetaminophen (Acetaminophen 325 Mg Tablet) 650 mg PO Q6H PRN PRN Reason: Pain, Mild 1-3,fever,headache Calcium Carbonate (Calcium Carbonate 750 Mg Tab.Chew) 750 mg PO Q4H PRN PRN Reason: Heartburn Magnesium Hydroxide (Milk Of Magnesia 30 Ml Oral.Susp) 30 ml PO DAILY PRN PRN Reason: Constipation Melatonin (Melatonin 3 Mg Tablet) 6 mg PO BEDTIME PRN PRN Reason: Insomnia Morphine Sulfate (Morphine Sulfate 4 Mg/Ml Cartridge) 2 mg IVPUSH Q4H PRN; Protocol PRN Reason: Pain, Severe (Pain Scale 7-10) Nitroglycerin (Nitroglycerin 0.4 Mg Tab.Subl) 0.4 mg SUBLINGUAL Q5MX3 PRN PRN Reason: Chest Pain Ondansetron HCl (Ondansetron Hcl 4 Mg/2 Ml Vial) 4 mg IVPUSH Q8H PRN PRN Reason: Nausea and Vomiting Sodium Chloride (0.9 % Sodium Chloride Flush 3 Ml Syringe) [facility] Medications ?Medication ?Instructions ?Recorded ?Confirmed ?Last Taken ?Type duloxetine 60 mg capsule,delayed 60 mg PO DAILY 11/06/21 01/07/25 Unknown History release meclizine 25 mg tablet 50 mg PO BID PRN Vertigo 11/06/21 01/07/25 Unknown History metoprolol succinate 50 mg 50 mg PO DAILY 11/06/21 01/07/25 07/04/23 History tablet,extended release 24 hr trazodone 100 mg tablet 100 mg PO BEDTIME PRN insomnia 11/06/21 01/07/25 Unknown History cholecalciferol (vitamin D3) 25 25 mcg PO DAILY 02/11/23 01/07/25 Unknown History mcg (1,000 unit) capsule (Vitamin D3) ferrous sulfate 325 mg (65 mg 325 mg PO DAILY 02/11/23 01/07/25 Unknown History iron) tablet (FeroSul) hydralazine 25 mg tablet 25 mg PO TID 02/11/23 01/07/25 Unknown History losartan 100 mg tablet 100 mg PO DAILY 02/11/23 01/07/25 07/04/23 History multivitamin 1 tab PO DAILY 02/11/23 01/07/25 Unknown History prazosin 1 mg capsule 3 mg PO BEDTIME PRN as needed 02/11/23 01/07/25 Unknown History amlodipine 10 mg tablet 10 mg PO DAILY 06/17/23 01/07/25 07/04/23 History duloxetine 20 mg capsule,delayed 20 mg PO DAILY 12/20/24 01/07/25 Unknown History release acetaminophen 500 mg tablet 500 mg PO Q6H PRN mild pain 01/25/25 Unknown History amoxicillin 500 mg capsule 500 mg PO Q8H 01/25/25 Unknown History buspirone 10 mg tablet 10 mg PO TID anxiety 01/25/25 Unknown History chlorhexidine gluconate 0.12 % 15 ml PO BID 01/25/25 Unknown History mouthwash hydrochlorothiazide 12.5 mg tablet 12.5 mg PO DAILY 01/25/25 Unknown History ibuprofen 600 mg tablet 600 mg PO Q6H PRN mild pain 01/25/25 Unknown History mirtazapine 7.5 mg tablet 7.5 mg PO BEDTIME insomnia 01/25/25 Unknown History tirzepatide (weight loss) 7.5 7.5 mg subcut QWEEK 01/25/25 Unknown History mg/0.5 mL subcutaneous pen injector (Zepbound) vitamin B complex-folic acid 0.4 1 tab PO DAILY 01/25/25 Unknown History mg tablet (B Complex 1 (with folic acid)) Physical Exam 2 Vital Signs and Narrative: Vital Signs: Last Vital Signs Temp 97.9 F 01/25/25 10:27 Pulse 79 01/25/25 13:47 Resp 14 01/25/25 13:47 BP 112/73 01/25/25 13:47 Pulse Ox 98 01/25/25 13:47 O2 Del Method Room Air 01/25/25 13:47 BMI result Body Mass Index 30.6 Const: Other: Constitutional : Awake, interactive, not in distress Neck : Normal inspection, Supple Cardiovascular : RRR, no JVP, no lower extremity edema Respiratory : good bilateral air entry, no crackles, wheezes or rhonchi Gastrointestinal: soft, lax, Normal bowel sounds, Non tender Skin : Warm, Dry Neurological : Alert & oriented x3, No focal deficit Results Labs 01/25/25 14:37 01/25/25 10:20 Labs: Laboratory Results - last 24 hr 01/25/25 10:20 MCV 80.9 MCH 26.3 L MCHC 32.5 RDW 13.7 Plt Count 275 MPV 9.6 Immature Gran % (Auto) 0.5 H Neut % (Auto) 71.4 Lymph % (Auto) 19.8 L [place] % (Auto) 6.5 Eos % (Auto) 1.2 Baso % (Auto) 0.6 Lymph # (Auto) 1.3 [place] # (Auto) 0.4 Eos # (Auto) 0.1 Baso # (Auto) 0.0 Abs Immat Gran (auto) 0.03 Absolute Neuts (auto) 4.6 Absolute Nucleated RBC 0.000 Nucleated RBC % (auto) 0.0 Anion Gap 9 L Estim Creat Clear Calc 89.8 Estimated GFR > 60 Random Glucose 103 Calcium 8.9 Total Bilirubin 0.4 AST 24 ALT 16 Alkaline Phosphatase 72 Total Protein 7.0 Albumin 3.6 Assessment and Plan (1) Angina at rest: Status: Acute (2) Unstable angina: Status: Acute Plan A 44 years old lady with PMH of Gastric sleeve surgery, Bipolar, Depression, TERESO, GERD and Angina who presents to ED with chest pain since last night. Unstable angina Trop negative, to repeat EKG showing poor R-wave progression but no ST\T wave changes Cardiology inpuit appreciated; ASA, full dose Lovenox Continue high intensity statin 80 mg lovenox SC Q12 Plan to transfer [place] [facility] [place] keep on Tele NTG for pain Mood disorder continue home medications HTN Amlodipine, Hydralazine; will keep on hold and monitor Pending med rec DVT PPx Lovenox The patient will be admitted for unstable angina on full dose Lovenox and close cardiac monitoring pending [place]ogram [place] [facility] Quality Stroke Does the patient have a stroke diagnosis?: No VTE Prior VTE?: No VTE Risk Level:: Medical - moderate - high VTE Device Contraindication: Treatment Not Indicated VTE Drug Contraindication: N/A - Med Ordered
[2025-01-25] MEDS: Enoxaparin Sodium 80 MG/0.8 ML SYRINGE SUBCUT (14:50)
[2025-01-25] MEDS: 0.9 % Sodium Chloride Flush 3 ML SYRINGE IVFLUSH (15:09)
[2025-01-25 15:14] LABS: Hematocrit 40.4 % (37.0-47.0); Hemoglobin 13.2 g/dl (12.0-16.0); Mean Corpuscular HGB Conc 32.7 g/dl (31.0-35.0); Mean Corpuscular Hemoglobin 26.3 pg (27.0-33.0); Mean Corpuscular Volume 80.6 fL (80.0-98.0); Mean Platelet Volume 9.7 fL (9.4-12.3); Platelet Count 256 X10*3/uL (160-400); Red Blood Count 5.01 X10*6/uL (4.20-5.50); Red Cell Distribution Width 13.7 % (11.0-16.0); White Blood Count 6.4 X10*3/uL (4.8-10.8)
[2025-01-25 15:21] LABS: Prothrombin Time 12.2 SEC (10.9-12.4)
[2025-01-25 15:23] LABS: Partial Thromboplastin Time 34.4 SEC (26.0-36.8)
--- NOTE | 2025-01-25 16:16 | PHA.MEDREC ---
Addendum entered by Rene Jimenez [facility] 01/25/25 16:34: Med rec reviewed Original Note: Pharmacy Consult ? Medication Reconciliation Pharmacy has completed the medication reconciliation. Spoke with patient and patients with an lang interpreter and patient has a list on hand I used to confirm the med rec and patient was able to confirm how many times a day she takes them. She stopped taking the Prazosin and Trazodone in the last week and started a new medication for sleep she couldn't remember the name of at this time; in claims the patient just got Mirtazapine filled for the first time 01/18 for sleep and when the patient heard that name it sounded familiar to her and her but they wasn't sure. She also stopped taking the Hydrochlorothiazide last week due to it making her Iron and Potassium levels low. She started the Amoxicillin 500mg regimen on Sunday 01/21. The patient confirmed she still takes the Baclofen 10mg tab TID for fibromyalgia.
[2025-01-25 16:27] VITALS: BP 134/65; PULSE 76; RESP 16; TEMP 36.8; O2SAT 96
--- NOTE | 2025-01-25 17:33 | P.DS_ITS ---
DS: Providers Provider Date of Service: 01/25/25 Date of admission: 01/25/25 14:10 Date of discharge: 01/25/25 Primary care physician: Teena Otoole MD Consults: 01/25/25 13:05 Consult to Cardiology Stat Consulting Provider: [facility] Reason for consultation: cp Has provider been notified: Yes 01/25/25 14:10 Consult to Cardiology Routine Consulting Provider: [facility] Reason for consultation: unstable angina DS: Diagnosis Discharge Diagnosis (1) Angina at rest: Status: Acute (2) Unstable angina: Status: Acute DS: Summary Hospital Course Hospital Course: Admission note HPI A 44 years old lady with PMH of Gastric sleeve surgery, Bipolar, Depression, TERESO, GERD and Angina who presents to ED with chest pain since last night. The patient scheduled for Angiogram at [facility] mid January for recurrent chest pain and abnormal recent Echo. Today presenting after a night of recurrent chest pain. No palpitations, SOB, nausea, vomiting, diarrhea or urinary symptoms. she reports getting short of breath with little efforts with heaviness in her chest. Echo outpatient showed inferior wall motion abnormalities. In ED, EKG not showing any ST\T wave changes. First Trop Negative. Evaluated by cardiology who recommended full dose Lovenox and plan to transfer to [facility] for urgent Angiogram during this hospital stay. Admitted for further management pending transfer. Hospital course The patient received Lovenox 80 mg SC. baby Aspirin as she was evaluated by diffusion furnace operator who recommended transfer to [facility] for Angiogram. She was accepted and will be transferred. Time Attestation Discharge Coordination Time (in mins): 41 Quality: Safe Use of Opioids Does Pt have an Active Cancer Diagnosis on the Problem List?: No Quality: Stroke Does the patient have a stroke diagnosis?: No Physical Exam Vital Signs: Vital Signs: Last Vital Signs Temp 97.8 F 01/25/25 17:44 Pulse 98 01/25/25 17:44 Resp 18 01/25/25 17:44 BP 106/60 01/25/25 17:44 Pulse Ox 96 01/25/25 17:44 O2 Del Method Room Air 01/25/25 17:44 BMI result Body Mass Index 30.6 Const: Other: Constitutional : Awake, interactive, not in distress Neck : Normal inspection, Supple Cardiovascular : RRR, no JVP, no lower extremity edema Respiratory : good bilateral air entry, no crackles, wheezes or rhonchi Gastrointestinal: soft, lax, Normal bowel sounds, Non tender Skin : Warm, Dry Neurological : Alert & oriented x3, No focal deficit DS: Data Data Completed and Pending Completed studies during hospitalization [Text1]: Procedures Excision of Stomach, Percutaneous Endoscopic Approach, Vertical (02/06/22) Labs on day of discharge: Laboratory Results - last 24 hr 01/25/25 01/25/25 10:20 14:37 WBC 6.5 6.4 RBC 5.18 5.01 Hgb 13.6 13.2 Hct 41.9 40.4 MCV 80.9 80.6 MCH 26.3 L 26.3 L MCHC 32.5 32.7 RDW 13.7 13.7 Plt Count 275 256 MPV 9.6 9.7 Immature Gran % (Auto) 0.5 H Neut % (Auto) 71.4 Lymph % (Auto) 19.8 L [place] % (Auto) 6.5 Eos % (Auto) 1.2 Baso % (Auto) 0.6 Lymph # (Auto) 1.3 [place] # (Auto) 0.4 Eos # (Auto) 0.1 Baso # (Auto) 0.0 Abs Immat Gran (auto) 0.03 Absolute Neuts (auto) 4.6 Absolute Nucleated RBC 0.000 0.000 Nucleated RBC % (auto) 0.0 0.0 PT 12.2 INR 1.0 APTT 34.4 Sodium 140 Potassium 3.5 Chloride 109 H Carbon Dioxide 26 Anion Gap 9 L BUN 7 L Creatinine 0.80 Estim Creat Clear Calc 89.8 Estimated GFR > 60 Random Glucose 103 Calcium 8.9 Total Bilirubin 0.4 AST 24 ALT 16 Alkaline Phosphatase 72 Troponin I High Sens < 2.7 Total Protein 7.0 Albumin 3.6 Discharge Plan Discharge Anticipated Discharge Date/Time: 01/25/25 16:58 Patient Disposition: Xfer Acute Care Hospital Discharge Diagnosis: unstable angina Referrals: [facility] [Outside] - 1 Week Teena Castillo MD [Primary Care Provider] - 1 Week Discharge Medications: New atorvastatin 40 mg Tablet 40 mg PO DAILY Qty: 1 0RF nitroglycerin [Nitrostat] 0.4 mg Tablet, Sublingual 0.4 mg sublingual Q5MX3 PRN (Reason: Chest Pain) Qty: 1 0RF enoxaparin 80 mg/0.8 mL Syringe 80 mg subcut Q12H Qty: 1 0RF Continued amoxicillin 500 mg capsule 500 mg PO Q8H acetaminophen 500 mg tablet 500 mg PO Q6H PRN (Reason: mild pain) buspirone 10 mg tablet 10 mg PO TID mirtazapine 7.5 mg tablet 7.5 mg PO BEDTIME vitamin B complex-folic acid [B Complex 1 (with folic acid)] 0.4 mg tablet 1 tab PO DAILY Zepbound 7.5 mg/0.5 mL pen injector 7.5 mg subcut FR chlorhexidine gluconate 0.12 % mouthwash 15 ml PO BID baclofen 10 mg tablet 10 mg PO TID duloxetine 60 mg capsule,delayed release(DR/EC) 60 mg PO DAILY metoprolol succinate 50 mg tablet extended release 24 hr 50 mg PO DAILY meclizine 25 mg tablet 50 mg PO BID PRN (Reason: Vertigo) losartan 100 mg tablet 100 mg PO DAILY hydralazine 25 mg tablet 25 mg PO TIDWM ferrous sulfate [FeroSul] 325 mg (65 mg iron) tablet 325 mg PO DAILY cholecalciferol (vitamin D3) [Vitamin D3] 25 mcg (1,000 unit) capsule 25 mcg PO DAILY multivitamin Tablet 1 tab PO DAILY amlodipine 10 mg tablet 10 mg PO DAILY duloxetine 20 mg capsule,delayed release(DR/EC) 20 mg PO DAILY aspirin [Adult Aspirin Regimen] 81 mg tablet,delayed release (DR/EC) 81 mg PO DAILY Qty: 90 3RF Held ibuprofen 600 mg tablet 600 mg PO Q6H PRN (Reason: mild pain) Hold Instructions: Resume on 02/02/25. further use will be decided after angiogram atorvastatin 20 mg tablet 20 mg PO DAILY Qty: 90 3RF Hold Instructions: Resume on 02/02/25. Discharge Orders: Discharge Order (Routine); Ordered 01/25/25 Ordered By: Tao Robin Diet: Advance to usual diet Activity on Discharge: As tolerated Stand Alone Forms: Patient Portal Discharge page Print Language: Namibian Care Plan Goals: Unstable angina-continue aspirin, statin, Lovenox-going to [facility] for angiogram. Health Concerns: As above. Plan of Treatment: As above. Assessment: As above.
--- NOTE | 2025-01-25 17:41 | PC.NURSE ---
Multiple attempts to give report to M5 nurse Heri Miller. clinical specialist kept transferring to RN however Rn was unable to take report at this time
[2025-01-25 17:44] VITALS: BP 106/60; PULSE 98; RESP 18; TEMP 36.6; O2SAT 96
--- NOTE | 2025-01-26 08:18 | MHC.CM.PN ---
Per documentation, Patient is being transferred to [facility] for an urgent Angiogram.
== END 2025-01-26 19:26 | disposition short-term general hospital (02) | DRG 198 ==
LOC: HO.ED 14:06 → HO.EDOVER 14:20
PROVIDERS: Admitting Provider Student in an Organized Health Care Education/Training Program; Emergency Provider Emergency Medicine Emergency Medical Services; PCP Internal Medicine; Visit Provider Student in an Organized Health Care Education/Training Program
DX: I20.0 Unstable angina (principal); F39 Unspecified mood [affective] disorder; I10 Essential (primary) hypertension; G47.33 Obstructive sleep apnea (adult) (pediatric); Z98.84 Bariatric surgery status; Z79.82 Long term (current) use of aspirin; Z79.899 Other long term (current) drug therapy
CPT/HCPCS: 36415; 80053; 84484; 85025; 85027; 85610; 85730; 93005; 99285; J1650

== ENCOUNTER → 2025-01-25 11:53 | Outpatient (BNV) | payer MEDICAID, SELFPAY | PROVIDERS: Emergency Provider Emergency Medicine Emergency Medical Services; PCP Internal Medicine; Visit Provider Internal Medicine Cardiovascular Disease | DX: I20.0 Unstable angina (principal) | CPT/HCPCS: 93010; 99223 ==

== ENCOUNTER → 2025-01-25 14:10 | Outpatient (BNV) | payer MEDICAID, SELFPAY | PROVIDERS: Admitting Provider Student in an Organized Health Care Education/Training Program; Emergency Provider Emergency Medicine Emergency Medical Services; PCP Internal Medicine; Visit Provider Student in an Organized Health Care Education/Training Program | DX: I20.89 Other forms of angina pectoris (principal); I20.0 Unstable angina | CPT/HCPCS: 99223 ==

== ENCOUNTER → 2025-01-26 23:59 | Outpatient (BNV) | payer MEDICAID, SELFPAY | PROVIDERS: PCP Internal Medicine; Visit Provider Internal Medicine Cardiovascular Disease | DX: I20.0 Unstable angina (principal) | CPT/HCPCS: 93458; 99152 ==

== ENCOUNTER 2025-02-01 10:19 | Outpatient (REF) | payer MEDICAID, SELFPAY ==
--- OUTSIDE RECORDS SUMMARY | 2025-02-01 11:51 | XMS_ITS | Continuity of Care Document ---
Author Organization [facility] ter Address [address] [place] [id number]- Care Team Providers Care Spike Machine Operator Name Role Phone Sydnee Otoole MD, Teena Lamas Primary Care Physici [id number] Date(s): 01/18/25 - 01/27/[address] [address]- Attending Physician: Newton Lira MD Admitting Physician: Newton Lira MD Referring Physician: Augustine Ag NP Encounter Type: Preadmit Daystay Allergies, Adverse Reactions, Alerts No Known Allergies Medications acetaminophen 325 mg oral tablet 975 mg, 3, tablet, By Mouth, Every 6 hours, # 50 tablet, Refills 0, Tot. Refills 0, Maintenance, 10/01/23 4:31:00 PM EST, Route to Pharmacy Electronically, [facility]/pharmacy #[id number], Partial fill upon patientrequest if the prescription is for a schedule II opioid drug., 160, cm, 10/01/23 12:47:00 EST, Height, 77.9, kg, 10/01/23 12:47:00 EST, Dry Weight Start Date: 10/01/23 Status: Ordered Quantity: 50.0 Unit: tablet Repeat number: 1 amiTRIPTYLINE By Mouth, Daily at bedtime, 0 Refills, Maintenance, 06/05/12 2:07:08 PM EDT Start Date: 06/05/12 Status: Ordered Repeat number: 1 Amlodipine By Mouth, Daily, Maintenance, 06/05/12 2:06:59 PM EDT Start Date: 06/05/12 Status: Ordered Repeat number: 1 CPAP Machine See Instructions, # 1 each, Maintenance, CPAP 11, 05/02/17 1:20:38 PM EDT, Compound Start Date: 05/02/17 Status: Ordered Quantity: 1.0 Unit: each Repeat number: 1 Diflucan 150 mg oral tablet 1 tablet = 150 mg, By Mouth, Once, # 1 tablet, 0 Refills, Soft Stop, 03/05/24 3:19:00 PM EDT, Tablet,[facility]/pharmacy #[id number], Partial fill upon patient request if the prescription is for a schedule II opioid drug., 159, cm, 03/05/24 15:01:00 EDT, Height, 87.9, kg, 03/05/24 15:01:00 EDT, Dry Weight Start Date: 03/05/24 Status: Ordered Quantity: 1.0 Unit: tablet Repeat number: 1 ferrous sulfate 325 mg oral tablet 1 tablet = 325 mg, By Mouth, 3 times a day, Take 1 tablet daily x 1 week, if tolerated take 1 tablet two times a day, # 90 tablet, 1 Refills, Maintenance, 05/02/17 8:30:57 AM EDT, Tablet, [facility] Start Date: 05/02/17 Status: Ordered Quantity: 90.0 Unit: tablet Repeat number: 2 HydroCHLOROthiazide Tablet By Mouth, Daily, Maintenance, 12/01/12 2:59:55 PM EST Start Date: 12/01/12 Status: Ordered Repeat number: 1 HydrOXYzine 0 Refills, Maintenance, 06/05/12 2:07:24 PM EDT Start Date: 06/05/12 Status: Ordered Repeat number: 1 ibuprofen 600 mg oral tablet 600 mg, 1, tablet, By Mouth, Every 6 hours, PRN, # 30 tablet, Refills 0, Tot. Refills 0, Maintenance, Pain , Mild, 10/01/23 4:31:00 PM EST, Route to Pharmacy Electronically, [facility]/pharmacy #[id number], Partialfill upon patient request if the prescription is for a schedule II opioid drug., 160, cm, 10/01/23 12:47:00 EST, Height, 77.9, kg, 10/01/23 12:47:00 EST, Dry Weight Start Date: 10/01/23 Status: Ordered Quantity: 30.0 Unit: tablet Repeat number: 1 Iron-150 oral tablet 1 tablet, By Mouth, Daily, # 30 tablet, 0 Refills, Maintenance, 08/07/12 11:49:29 PM EST Start Date: 08/07/12 Stop Date: 09/06/12 Status: Ordered Quantity: 30.0 Unit: tablet Repeat number: 1 Losartan Tablet By Mouth, Daily, Maintenance, 12/01/12 3:00:27 PM EST Start Date: 12/01/12 Status: Ordered Repeat number: 1 meclizine 50 mg oral tablet 1 tablet = 50 mg, By Mouth, 2 times a day, PRN dizziness, # 60 tablet, 0 Refills, Maintenance, 03/02/12 1:27:53 PM EDT, [facility]/pharmacy #[id number] Start Date: 03/02/12 Status: Ordered Quantity: 60.0 Unit: tablet Repeat number: 1 metoprolol (OP) See Instructions, 1 daily, 0 Refills, Maintenance, 2 Start Date: 09/24/23 Status: Ordered Repeat number: 1 MiraLax = 17 Gm, By Mouth, Daily, 0 Refills, Maintenance, 12/01/12 3:02:15 PM EST Start Date: 12/01/12 Status: Ordered Repeat number: 1 Monistat 3 4% cream with applicator 1 application, Vaginally, Daily at bedtime, # 5 Gm, 0 Refills, Maintenance, 09/04/23 1:48:00 PM EST,Cream, [facility], Partial fill upon patient request if the prescription is fora schedule II opioid drug., 1 application Vaginally Daily at bedtime, 152, cm, 09/04/23 13:05:00 EST, Height, 77, kg, 09/04/23 13:05:00 EST, Dry Weight Start Date: 09/04/23 Status: Ordered Quantity: 5.0 Unit: g Repeat number: 1 oxyCODONE 5 mg oral tablet 5 mg, 1, tablet, By Mouth, Every 6 hours, PRN, # 12 tablet, Refills 0, Tot. Refills 0, Maintenance,as needed for pain, 10/01/23 4:31:00 PM EST, Route to Pharmacy Electronically, [facility]/pharmacy #[id number], Partial fill upon patient request if the prescription is for a schedule II opioid drug., 160, cm, 10/01/23 12:47:00 EST, Height, 77.9, kg, 10/01/23 12:47:00 EST, Dry Weight Start Date: 10/01/23 Status: Ordered Quantity: 12.0 Unit: tablet Repeat number: 1 Prazosin By Mouth, Daily at bedtime, 0 Refills, Maintenance, 09/24/23 11:20:00 AM EST, Partial fill upon patient request if the prescription is for a schedule II opioid drug. Start Date: 09/24/23 Status: Ordered Repeat number: 1 Prilosec OTC = 20 mg, By Mouth, Daily, 0 Refills, Maintenance, 12/01/12 3:01:00 PM EST Start Date: 12/01/12 Status: Ordered Repeat number: 1 Senna 8.6 mg oral tablet 8.6 mg, 1, tablet, By Mouth, Daily at bedtime, # 28 tablet, Refills 0, Tot. Refills 0, Maintenance,10/01/23 4:31:00 PM EST, Route to Pharmacy Electronically, [facility]/pharmacy #[id number], Partial fill upon patient request if the prescription is for a schedule II opioid drug., 160, cm, 10/01/23 12:47:00 EST, Height, 77.9, kg, 10/01/23 12:47:00 EST, Dry Weight Start Date: 10/01/23 Status: Ordered Quantity: 28.0 Unit: tablet Repeat number: 1 simethicone 125 mg oral capsule 1 capsule = 125 mg, By Mouth, 4 times a day, PRN Gas, # 30 capsule, 0 Refills, Maintenance, 10/01/23 4:31:00 PM EST, Capsule, [facility]/pharmacy #[id number], Partial fill upon patient request if the prescription is for a schedule II opioid drug., 160, cm, 10/01/23 12:47:00 EST, Height, 77.9, kg, 10/01/23 12:47:00 EST, Dry Weight Start Date: 10/01/23 Status: Ordered Quantity: 30.0 Unit: capsule Repeat number: 1 Trazodone By Mouth, Daily at bedtime, 0 Refills, Maintenance, 09/24/23 11:21:00 AM EST, Partial fill upon patient request if the prescription is for a schedule II opioid drug. Start Date: 09/24/23 Status: Ordered Repeat number: 1 Vitamin B Complex with C and Iron oral capsule 1 capsule, By Mouth, Daily, # 90 capsule, 0 Refills, Maintenance, 09/24/23 11:22:00 AM EST, Capsule, Partial fill upon patient request if the prescription is for a schedule II opioid drug. Start Date: 09/24/23 Status: Ordered Quantity: 90.0 Unit: capsule Repeat number: 1 Problem List Condition Confirmation Course Effective Dates Status H ealth Status Informant Arthritis Confirmed Active Bipolar 1 disorder Confirmed Active Contraceptive method: female sterilization Confirmed Active Fibromyalgia Confirmed Active History of gastric restrictive surgery Confirmed Active Migraines Confirmed Active Morbid obesity Confirmed Active Obstructive sleep apnea Confirmed Active Severe obesity (BMI 35.0-39.9) with comorbidity Confirmed Active Social History Social History Type Response Smoking Status Never (less than 100 in lifetime) entered on: 09/04/23 Sex Sex Representation Female (finding) Patient Care team information Care Team Personnel Name: Teena Castillo MD Position: [facility] Outreach Member Role: PCP Address: [address] [place] [address] Telecom: Name: Lisbet Castañeda RN Position: [facility] RN Member Role: Primary Care Nurse Care Team Related Persons Name: SHASHI MENDOZA Insurance Providers Guarantor name: FREDIS YORK Health Plan Information #: 1 Payer: [employer] Member Number: [id number] Policy Number: NA Group Number: [employer] Health Plan Information #: 2 Payer: [employer] Member Number: [id number] Policy Number: NA Group Number: [employer] Health Plan Information #: 3 Payer: 7 [employer] Member Number: [employer] Policy Number: NA Group Number: [employer]
--- OUTSIDE RECORDS SUMMARY | 2025-02-01 11:51 | XMS_ITS | Continuity of Care Document ---
Author Organization [facility] ter Address [address] [place] [id number]- Care Team Providers Care Ict Business Development Manager Name Role Phone Sydnee Otoole MD, Teena Lamas Primary Care Physici an [facility] [place] [phone] Date(s): 01/25/25 - 01/27/[address] [address]- Discharge Disposition: A-D/C Home Attending Physician: Isma Irving MD Admitting Physician: Kacey Gama MD Referring Physician: Not on Staff, Referring MD Encounter Type: Disch IP Allergies, Adverse Reactions, Alerts No Known Allergies Medications acetaminophen 325 mg oral tablet 975 mg, 3, tablet, By Mouth, Every 6 hours, # 50 tablet, Refills 0, Tot. Refills 0, Maintenance, 10/01/23 4:31:00 PM EST, Route to Pharmacy Electronically, [facility]/pharmacy #[id number], Partial fill upon patientrequest if the prescription [...] Instructions, # 1 each, Maintenance, CPAP 11, 8/4/17 1:20:38 PM EDT, Compound Start Date: 05/02/17 Status: Ordered Quantity: 1.0 Unit: each Repeat number: 1 Diflucan 150 mg oral tablet 1 tablet = 150 mg, By Mouth, Once, # 1 tablet, 0 Refills, Soft Stop, 03/05/24 3:19:00 PM EDT, Tablet,[facility]/pharmacy #[id number], Partial fill upon patient request if [...] Refills, Maintenance, 05/02/17 8:30:57 AM EDT, Tablet, [facility] Start Date: 05/02/17 Status: Ordered Quantity: 90.0 [...] 4:31:00 PM EST, Route to Pharmacy Electronically, [facility]/pharmacy #[id number], Partialfill upon patient request if the [...] Quantity: 30.0 Unit: tablet Repeat number: 1 losartan 50 mg oral tablet 50 mg, Tablet, By Mouth, Hold for: sbp<110, 01/27/25 9:00:00 AM EDT Start Date: 01/27/25 Stop Date: 01/27/25 Status: Completed Repeat number: 1 Losartan Tablet By Mouth, Daily, Maintenance, 12/01/12 3:00:27 PM EST Start Date: 12/01/12 Status: Ordered Repeat number: 1 meclizine 50 mg oral tablet 1 tablet = 50 mg, By Mouth, 2 times a day, PRN dizziness, # 60 tablet, 0 Refills, Maintenance, 03/02/12 1:27:53 PM EDT, [facility]/pharmacy #[id number] Start Date: 03/02/12 Status: Ordered Quantity: 60.0 Unit: tablet Repeat number: 1 metoprolol (OP) See Instructions, 1 daily, 0 Refills, Maintenance, 2 Start Date: 09/24/23 Status: Ordered Repeat number: 1 metoprolol 50 mg oral tablet, extended release 50 mg, XL Tablet, By Mouth, Hold for: sbp<110, hr<60, 01/27/25 9:00:00 AM EDT Start Date: 01/27/25 Stop Date: 01/27/25 Status: Completed Repeat number: 1 MiraLax = 17 Gm, By Mouth, Daily, 0 Refills, Maintenance, 12/01/12 3:02:15 PM EST Start Date: 12/01/12 Status: Ordered Repeat number: 1 Monistat 3 4% cream with applicator 1 application, Vaginally, Daily at bedtime, # 5 Gm, 0 Refills, Maintenance, 09/04/23 1:48:00 PM EST,Cream, [facility], Partial fill upon patient request [...] 4:31:00 PM EST, Route to Pharmacy Electronically, [facility]/pharmacy #[id number], Partial fill upon patient request if [...] 4:31:00 PM EST, Route to Pharmacy Electronically, [facility]/pharmacy #[id number], Partial fill upon patient request if [...] Refills, Maintenance, 10/01/23 4:31:00 PM EST, Capsule, [facility]/pharmacy #[id number], Partial fill upon patient request if [...] obesity (BMI 35.0-39.9) with comorbidity Confirmed Active Vital Signs Most recent to oldest [Reference Range]: 1 2 3 Height 160 cm (01/27/25 1:23 PM) 160 cm (01/27/25 7:48 AM) 160 cm (01/27/25 2:34 AM) Weight 91.7 kg (01/27/25 2:34 AM) 91.5 kg (01/26/25 3:04 AM) 91.6 kg (01/25/25 6:35 PM) Oxygen Saturation [94-100 %] 100 % (01/27/25 1:23 PM) 94 % (01/27/25 7:48 AM) 97 % (01/27/25 2:34 AM) Pulse Rate [55-90 bpm] 72 bpm (01/27/25 1:23 PM) 70 bpm (01/27/25 10:20 AM) 76 bpm (01/27/25 7:48 AM) Body Mass Index [18.5-24.99 kg/m2] 35.82 kg/m2 *>HHI* (01/27/25 2:34 AM) 35.74 kg/m2 *>HHI* (01/26/25 3:04 AM) 35.78 kg/m2 *>HHI* (01/25/25 6:35 PM) Blood Pressure [90-138/55-84 mm Hg] 123/85mm Hg (01/27/25 1:23 PM) 122/79mm Hg (01/27/25 10:20 AM) 122/79mm Hg (01/27/25 10:20 AM) Respiratory Rate [16-30 br/min] 18 br/min (01/27/25 1:23 PM) 18 br/min (01/27/25 7:48 AM) 18 br/min (01/27/25 2:34 AM) Temperature [96.8-100.4 DegF] 98.6 DegF (01/27/25 1:23 PM) 98.3 DegF (01/27/25 7:48 AM) 98.1 DegF (01/27/25 2:34 AM) Mode of Delivery (Oxygen) Room air (01/27/25 1:23 PM) Room air (01/27/25 7:48 AM) Room air (01/27/25 2:34 AM) Blood pressure sites Arm, right (01/27/25 1:23 PM) Arm, left (01/27/25 7:48 AM) Arm, left (01/27/25 2:34 AM) Temperature Route Oral (01/27/25 1:23 PM) Oral (01/27/25 7:48 AM) Oral (01/27/25 2:34 AM) Dry Weight 91.6 kg (01/25/25 6:35 PM) Weight Obtained Via Bed scale (01/27/25 2:34 AM) Bed scale (01/26/25 3:04 AM) Social History Social History Type Response Smoking Status Never (less than 100 in lifetime) entered on: 09/04/23 Sex Sex Representation Female (finding) Note * Event Display: Hemodynamic Procedure Report Authored Date: * Josephine Quiñonez: PERFORM, SIGN, VERIFY Event Display: Cardiac Rehab Note Authored Date: Patient: FREDIS YORK [facility]: [id number] Age: 44 years Sex: Female : 1980 Associated Diagnoses: None Author: Josephine Quiñonez Pt chart reviewed. Pt cardiac cath showed no significant coronary disease. Pt does not have qualifying diagnosis for phase 2 cardiac rehab. Will sign off at this time. Please page [phone] with any questions. * Laurie Medina RN: PERFORM Event Display: Discharge/Transfer Note Hospital Authored Date: [id number] Nursing Discharge Note Entered On: 01/27/2025 14:07 EDT Performed On: 01/27/2025 14:05 EDT by Laurie Medina RN Nursing Discharge Note 2 Discharge Time : 01/27/2025 14:05 EDT Discharge Level of Care at Discharge : Home/Senior Care/Foster Care Patient Left Unit Via : Ambulatory Patient Accompanied Off Unit with : Responsible adult DC Instructions Provided & Signed by Pt : Yes Patient Understands D/C Instructions : Yes Patient Instructions Discharge Signed : Yes Discharge Comments : iv d/c tele d/c pt and given d/c instrucitons questions d/c without complaint Did Pt have Specialty Bed or Wound Vac : No Laurie Medina RN - 01/27/2025 14:05 EDT * Maria Fernanda BOATENG, Isma Messer: PERFORM Event Display: Discharge/Transfer Note Hospital Authored Date: Patient: ??FREDIS YORK ? Age:??44 Years?Sex:??Female?:??1980?? Patient Information Discharge Location: Primary Care Physician: Sydnee Otoole MD, Teena Lamas Admit Date/Time: 01/25/2025 17:49 Discharge Disposition Discharge Disposition: Home Discharge Diagnosis Unstable angina (I20.0) TERESO (obstructive sleep apnea) (G47.33) Bipolar disorder (F31.9) Mood disorder (F39) HTN (hypertension) (I10) Dental infection (K04.7) _ Discharge Medications Acetaminophen (acetaminophen 325 mg oral tablet)??975 Milligram 3 tablet By Mouth Every 6 hours amiTRIPTYLINE??By Mouth Daily at bedtime Amlodipine??By Mouth Daily Durable Medical Equipment (CPAP ??Machine)??See Instructions CPAP 11 Ferrous Sulfate (ferrous sulfate 325 mg oral tablet)??1 tab(s) 325 Milligram By Mouth 3 times a dayTake 1 tablet daily x 1 week, if tolerated take 1 tablet two times a day Fluconazole (Diflucan 150 mg oral tablet)??1 tab(s) 150 Milligram By Mouth Once Hydrochlorothiazide (HydroCHLOROthiazide Tablet)??By Mouth Daily Ibuprofen (ibuprofen 600 mg oral tablet)??600 Milligram 1 tablet By Mouth Every 6 hours as needed Pain , Mild Losartan (Losartan Tablet)??By Mouth Daily Meclizine (meclizine 50 mg oral tablet)??1 tab(s) 50 Milligram By Mouth 2 times a day as needed dizziness Metoprolol (metoprolol (OP))??See Instructions 1 daily Miconazole Topical (Monistat 3 4% cream with applicator)??1 radha Vaginally Daily at bedtime Multivitamin With Iron (Iron-150 oral tablet)??1 tab(s) By Mouth Daily for 30 Days Multivitamin With Iron (Vitamin B Complex with C and Iron oral capsule)??1 capsule By Mouth Daily Omeprazole (Prilosec OTC)??20 Milligram By Mouth Daily Oxycodone (oxyCODONE 5 mg oral tablet)??5 Milligram 1 tablet By Mouth Every 6 hours as needed as needed for pain PEG Electrolyte Solution (MiraLax)??17 gram By Mouth Daily Prazosin??By Mouth Daily at bedtime Senna (Senna 8.6 mg oral tablet)??8.6 Milligram 1 tab(s) By Mouth Daily at bedtime Simethicone (simethicone 125 mg oral capsule)??1 capsule 125 Milligram By Mouth 4 times a day as needed Gas Trazodone??By Mouth Daily at bedtime ? 72 Hour Antibiotic History Active Antibiotics Calendar Day Last Administered First Administered Amoxicillin??500 mg, By Mouth, 3 times a day ?2 01/27/2025 10:19 01/26/2025 08:00 ? Durable Medical Equipment Ambulatory devices needed: None (01/26/25) ? Medications Started None Medications Discontinued None Doses Changed None Allergies Allergies ?(Active and Proposed Allergies Only) NKA? (Severity: Unknown severity, Onset: Unknown) ? Hospital Course 44 yo female with pmh of??obesity/gastric sleeve surgery, bipolar, depression, HTN, TERESO, GERD, anemia, angina. Patient transferred from [facility] for unstable angina??on 01/25, recommended for??LHC, which was performed 01/[address] Lira. ?? 01/26: Accepted patient under my care at 7AM. Chart reviewed, saw and examined patient. Patient presently asymptomatic, n.p.o., awaiting cath. In the mid afternoon I was informed by Dr. Lira that patient underwent negative LHC in can be discharged in a.m. Diet is resumed. ?? 01/27: Patient remains asymptomatic and clinically stable overnight.??Vitals and blood work stable. Reviewed with Dr. Lira??who feels her symptoms most likely relating to anxiety,??she does not needaspirin or statin, and should follow-up in the office in about 2 weeks.??Family updated at the bedside, ??Satnam. ?? Assessment and Plan ?? Unstable angina (I20.0):??Patient with recent??history of recurrent chest pain, and had an abnormalecho with??inferior wall motion abnormality,??was planned to have??angiogram[place]at [facility] [place] mid [place].??However patient started having chest pain at rest yesterday night,??was taken to??[facility],??troponin negative,??seen by cardiology, recommended full anticoagulation with Lovenox and transferred to [facility]??for??cardiac cath.??Patient did receive??Lovenox??at outside hospital.??At this time no chest pain, EKG nonischemic.??Patient underwent negative cardiac cath on 01/26, her symptoms and echo changes are likely relating to stress/anxiety. ?? -Discharge home -No need for aspirin or??statin per??Dr. Lira, or??any other medication changes??(discussed on date of discharge via secure messaging) -Follow-up with Dr. Lira??in about 2 weeks -Resume home meds??on DC -Follow-up with PCP for med reconciliation and??refills -Can consider??MSBR (REBAP??in [place]) if okay with Psychiatrist/Therapist ?? HTN (hypertension) (I10):??Patient seems to be on multiple medications??including??metoprolol, losartan, hydralazine, amlodipine.??At this time blood pressure is well-controlled,??systolic 120s.?? -Resume home meds??on DC -Follow-up with PCP for med reconciliation and??refills ?? TERESO (obstructive sleep apnea) (G47.33):??CPAP nightly ?? Dental infection (K04.7):??Patient was recently prescribed amoxicillin for dental infection,??she states that she has not completed the dose, it seems??about 3 days is remaining, -Continue amoxicillin as per prior plan ?? Mood disorder (F39) Bipolar disorder (F31.9) -Continue home medications including duloxetine 20 mg daily,??bupropion 10 mg 3 times a day, mirtazapine 7.5 mg at night. -Resume home meds??on DC -Follow-up with PCP for med reconciliation and??refills ?? Please note, dictation software ([employer])??may have been used in the preparation of this note, and may have generated unintentional errors in speech recognition. If there are any questions going forward, please reach out for clarification.? Objective Measurements?? Height: 160 cm (01/27/25) Weight: 91.7 kg (01/27/25) Dry Weight: 91.6 kg (01/25/25) Body Mass Index:??35.82 kg/m2??Critical (01/27/25) ? Vital Signs?? Temperature: 98.3 DegF (01/27/25 07:48:00) Temperature Route: Oral (01/27/25 07:48:00) Pulse Rate: 70 bpm (01/27/25 10:20:00) Respiratory Rate: 18 br/min (01/27/25 07:48:00) Systolic Blood Pressure: 122 mm Hg (01/27/25 10:20:00) Systolic Blood Pressure: 122 mm Hg (01/27/25 10:20:00) Diastolic Blood Pressure: 79 mm Hg (01/27/25 10:20:00) Diastolic Blood Pressure: 79 mm Hg (01/27/25 10:20:00) Blood pressure sites: Arm, left (01/27/25 07:48:00) Mean Arterial Pressure: 96 mm Hg (01/27/25 07:48:00) Pulse Pressure: 27 mm Hg (01/27/25 07:48:00) Oxygen Saturation: 94 % (01/27/25 07:48:00) Mode of Delivery (Oxygen): Room air (01/27/25 07:48:00) Early Warning Score: 2 (01/27/25 10:22:31) ? . Physical Exam Constitutional: Alert, in no acute distress. Head EENT: PERRL.??NCAT. Neck: Supple. No obvious LAD. Respiratory: CTAB. No use of accessory muscles. Cardiovascular: S1S2 present. No obvious JVD. Gastrointestinal: Abdomen soft, non-tender, non-distended. Bowel sounds present. Genitourinary: No CVA tenderness. Genital exam deferred. Extremities: No lower extremity pitting??edema. No cyanosis or clubbing. Neurologic: Alert, generally appropriate. Speech normal. No gross focal neurological deficits. Consultants Cards - consulted on admission however formal consult was deferred per Dr. Lira Pending Results No Pending Results Follow-Up Appointments Added Follow Up ?Time Frame ?Comments Teena Castillo MD Patient Instructions -Follow up with PCP??in next 1 to 2 weeks -Resume home medications without change;??the medication list??attached to this note??may be incorrect, please confirm your meds with your Primary Doctor -Follow up with Dr. Lira in about 2 weeks -Follow up with your Psychiatrist/Therapist and see if meditation/Mindfulness- Based Stress Reduction might be useful??to help with stress/anxiety Home Health Face to Face N/A Results Discharge Labs BLOOD COUNT & DIFF WBC 5.7 k/mm3 ()?? 01/27/2025 02:01 RBC 4.73 m/mm3 ()?? 01/27/2025 02:01 Hgb 12.4 Gm/dL ()?? 01/27/2025 02:01 Hct 38.5 % ()?? 01/27/2025 02:01 MCV 81.4 femtoliters ()?? 01/27/2025 02:01 MCH 26.2 pg (Low)?? 01/27/2025 02:01 MCHC 32.2 Gm/dL (Low)?? 01/27/2025 02:01 Platelet Count 239 k/mm3 ()?? 01/27/2025 02:01 RDW-SD 40.0 femtoliters ()?? 01/27/2025 02:01 MPV 10.1 femtoliters ()?? 01/27/2025 02:01 Nucleated RBC (Automated) 0.0 #/100 WBC'S ()?? 01/27/2025 02:01 Abs. NRBC 0.0 k/mm3 ()?? 01/27/2025 02:01 Abs. Neut 4.5 k/mm3 ()?? 01/25/2025 21:40 Abs. Lymph 1.4 k/mm3 ()?? 01/25/2025 21:40 Abs. Panola 0.6 k/mm3 ()?? 01/25/2025 21:40 Abs. Eo 0.1 k/mm3 ()?? 01/25/2025 21:40 Abs. Baso 0.0 k/mm3 ()?? 01/25/2025 21:40 Neut % 67.4 % ()?? 01/25/2025 21:40 Lymph % 21.4 % ()?? 01/25/2025 21:40 Panola % 8.6 % ()?? 01/25/2025 21:40 Eos % 1.5 % ()?? 01/25/2025 21:40 Baso % 0.6 % ()?? 01/25/2025 21:40 Imm Gran 0.5 % ()?? 01/25/2025 21:40 Abs. Imm Gran 0.0 k/mm3 ()?? 01/25/2025 21:40 ?? CARDIAC Nt-Probnp 87 pg/mL ()?? 01/25/2025 21:40 High Sensitivity Troponin (HSTnT) 8 ng/L ()?? 01/25/2025 21:40 ?? CHEM GENERAL Sodium 141 mmol/L ()?? 01/27/2025 02:03 Potassium 3.8 mmol/L ()?? 01/27/2025 02:03 Chloride 108 mmol/L (High)?? 01/27/2025 02:03 Bicarbonate Level 23 mmol/L ()?? 01/27/2025 02:03 Anion Gap 10 mmol/L ()?? 01/27/2025 02:03 Glucose Level 78 mg/dL ()?? 01/27/2025 02:03 Hemoglobin A1C (Monitoring) 5.1 % ()?? 01/25/2025 21:40 BUN 9 mg/dL ()?? 01/27/2025 02:03 Creatinine-Blood 0.80 mg/dL ()?? 01/27/2025 02:03 Estimated GFR Creatinine 94 ML/MIN/1.73 M2 ()?? 01/27/2025 02:03 Calcium 8.5 mg/dL (Low)?? 01/27/2025 02:03 Magnesium 2.1 mg/dL ()?? 01/25/2025 21:40 AST (SGOT) 14 units/L ()?? 01/25/2025 21:40 ALT (SGPT) 9 units/L ()?? 01/25/2025 21:40 ?? ENDOCRINE/TUMOR MARKER Blood <1 mIU/mL ()?? 01/25/2025 21:40 ? LIPID STUDIES Cholesterol 103 mg/dL ()?? 01/25/2025 21:40 Triglycerides 42 mg/dL ()?? 01/25/2025 21:40 HDL Cholesterol 53 mg/dL ()?? 01/25/2025 21:40 LDL Cholesterol 42 mg/dL ()?? 01/25/2025 21:40 Non HDL Cholesterol 50 mg/dL ()?? 01/25/2025 21:40 ? URINE OTHER Est Creatinine Clearance 74.98 mL/min ()?? 01/27/2025 03:42 ? 40??minutes spent on discharge * Laurie Medina RN: PERFORM, MODIFY Event Display: Patient Education/Instruction Authored Date: [id number] Inpatient Adult Discharge Instructions. [address] [address] Name: FREDIS YORK : 1980?? Visit: 01/25/2025 17:49?? Current Date: 01/27/2025 13:51 ?? Account: [id number]?? Inpatient Adult Discharge Instructions We would like to thank you for allowing us to assist you with your healthcare needs. The following includes patient education materials and information regarding your injury/illness. Our entire staffstrives to provide an excellent experience for our patients and their families. PLEASE ENSURE YOU FOLLOW-UP PER THE INSTRUCTIONS BELOW! ?? YOUR OPINION IS IMPORTANT TO US! Please complete the survey you may receive by mail or email. Your feedback will be used to make improvements to the healthcare experiences of our patients and their families. Surveys are administered by [employer] ?? If further treatment with your primary care physician or another doctor is recommended, it is important for you to keep the appointment. Call your primary care physician or return to the Emergency Department immediately if your condition worsens, fails to improve, or new symptoms develop. If you need to find a doctor, you can call [facility] Link for a referral at [phone] or toll free at [phone]) or log in to [email or web address].. ?? [facility], in keeping with [facility] guidance, no longer requires face masks for staff, patientsor visitors in most situations. Similiar to time spent indoors at other locations, there is the chance that you were exposed to repiratory viruses during your time with us (such as flu or COVID-19). If you develop symptoms concerning for a viral respiratory infection, please seek testing (and treatment if indicated) from your medical provider or home test kit. ?? You can view and manage your care through the patient portal or by using a health care radha of your choosing. [employer] is a website that allows you to securely view your medical information including your hospital discharge summary, office visit summaries, medications and follow-up visits. You can also request appointments, renew medications, and request access to your medical information using a health care radha of your choosing, or just ask a question. You are entitled to know the individuals who participated in your treatment. This information is available within your medical record and will be provided upon your request. You can enroll at [email or web address] or register d uring your next office visit. You have been discharged from [facility], Patient Care Unit: M5??. If you have any questions regarding these instructions, including results of studies pending, afteryou leave, please call us and we will be happy to assist you 21/04. [facility] Your Care Team Attending Physician Isma Irving MD?? Consulting Providers Isma Irving MD?? Discharging Providers Isma Irving MD Your Diagnosis Bipolar disorder Dental infection HTN (hypertension) Mood disorder TERESO (obstructive sleep apnea) Unstable angina Tests Performed Below is a partial list of the tests performed during your hospitalization. You may have had other tests and procedures not included in this list. Please discuss all test results with your provider. ALT AST Basic Metabolic Panel Beta HCG Serum (Females Only) BUN Cardiac Lipid Panel CBC CBC w/ Differential Creatinine Electrolytes Glucose Level Hemoglobin A1C (Monitoring) Magnesium Level NT ProBNP Troponin T, High Sensitivity ALT?? AST?? B Type Natriuretic Peptide (NT-proBNP) (NT ProBNP)?? BUN?? Basic Metabolic Panel?? Beta HCG Serum (Females Only)?? CBC?? CBC w/ Differential?? Creatinine?? Electrolytes?? Glucose Level?? Hemoglobin A1C (Monitoring)?? High??Sensitivity??Troponin T (Troponin T, High Sensitivity)?? Lipid Panel (Cardiac Lipid Panel)?? Magnesium Level?? Primary Care Provider Sydnee Otoole MD, Teena Lamas? Advance Directive Health Care Proxy on File No Discharge Vitals Temperature: 98.6 DegF Height: 160 cm Pulse Rate: 72 bpm Weight: 91.7 kg Respiratory Rate: 18 br/min Body Mass Index:??35.82 kg/m2??Critical Systolic Blood Pressure: 123 mm Hg Body surface area: 2.02 Diastolic Blood Pressure:??85 mm Hg??High ?? Oxygen Saturation: 100 % ?? Studies Pending All studies ordered during this hospital stay have been completed unless listed below. Please discuss all pending results with your provider listed above in these instructions. ?? No incomplete studies found?? What to do next Instructions From Your Doctor -Follow up with PCP??in next 1 to 2 weeks, please call office??today to up a hospital follow-up appointment -Resume home medications without change;??the medication list??attached to this note??may be incorrect, please confirm your meds with your Primary Doctor, refills per PCP -Follow up with Dr. Lira in about 2 weeks -Follow up with your Psychiatrist/Therapist and see if meditation/Mindfulness- Based Stress Reduction might be useful??to help with stress/anxiety ?? Orders? 01/27/25 13:09:00 EDT?? You Need to Schedule the Following Appointments Follow Up with??Sydnee Otoole MD, Teena Lamas Where: [address] [place] [address] [address] [place] [address]- Discharge Medications FREDIS YORK :1980 Visit Date:01/25/2025 Medications: Please continue your medications until treatment is completed or stopped by your provider. Medications not listed below should be discontinued. Discuss any questions related to medications with your provider. What How Much When Instructions Next Dose Unchanged Acetaminophen (acetaminophen 325 mg oral tablet) 3 tab(s) Oral Every 6 hours as needed Unchanged amiTRIPTYLINE Oral Daily at Bedtime tonight Unchanged Amlodipine Oral Daily 01/28/25 9a Unchanged Durable Medical Equipment (CPAP Machine) See instructions CPAP 11 ?? Unchanged Ferrous Sulfate (ferrous sulfate 325 mg oral tablet) 1 tab(s) Oral 3 times a day Take 1 tablet daily x 1 week, if tolerated take 1 tablet two times a day ?? tonight 10p Unchanged Fluconazole (Diflucan 150 mg oral tablet) 1 tab(s) Oral Once 01/28/25 9a Unchanged Hydrochlorothiazide (HydroCHLOROthiazide Tablet) Oral Daily 01/28/25 9a Unchanged HydrOXYzine Unchanged Ibuprofen (ibuprofen 600 mg oral tablet) 1 tab(s) Oral Every 6 hours as needed for Pain , Mild as needed Unchanged Losartan (Losartan Tablet) Oral Daily 01/28/25 9a Unchanged Meclizine (meclizine 50 mg oral tablet) 1 tab(s) Oral Twice a day as needed for dizziness as needed Unchanged Metoprolol (metoprolol (OP)) See instructions 1 daily ?? 01/28/25 9a Unchanged Miconazole Topical (Monistat 3 4% cream with applicator) 1 radha Vaginally Daily at Bedtime tonight Unchanged Multivitamin With Iron (Iron-150 oral tablet) 1 tab(s) Oral Daily Duration: 30 Days 01/28/25 9a Unchanged Multivitamin With Iron (Vitamin B Complex with C and Iron oral capsule) 1 capsule Oral Daily 01/28/25 9a Unchanged Omeprazole (Prilosec OTC) 20 Milligram Oral Daily 01/28/25 9a Unchanged Oxycodone (oxyCODONE 5 mg oral tablet) 1 tab(s) Oral Every 6 hours as needed for as needed for pain NEEDE Unchanged PEG Electrolyte Solution (MiraLax) 17 gram Oral Daily Unchanged Prazosin Oral Daily at Bedtime TONIGHT Unchanged Senna (Senna 8.6 mg oral tablet) 1 tab(s) Oral Daily at Bedtime NEEDED Unchanged Simethicone (simethicone 125 mg oral capsule) 1 capsule Oral 4 times a day as needed for Gas NEEDED Unchanged Trazodone Oral Daily at Bedtime TONIGHT Prescription Given During Visit No new medications prescribed at time of discharge.?? Laboratory Results Below is a partial list of the most recent Laboratory test results done prior to this discharge. You may have had other tests and procedures not included in this list. Please discuss all test resultswith your provider. Est Creatinine Clearance - 74.98 mL/min (01/27/2025) ALT (01/25/2025) ???ALT (SGPT) - 9 units/L AST (01/25/2025) ???AST (SGOT) - 14 units/L Basic Metabolic Panel (01/27/2025) ???Sodium - 141 mmol/L???Potassium - 3.8 mmol/L???Chloride - 108 mmol/L???Bicarbonate Level - 23 mmol/L???Anion Gap - 10 mmol/L???Glucose Level - 78 mg/dL???BUN - 9 mg/dL???Creatinine-Blood - 0.80 mg/dL???Estimated GFR Creatinine - 94 ML/MIN/1.73 M2???Calcium - 8.5 mg/dL Beta HCG Serum (Females Only) (01/25/2025) ? ?Blood - <1 mIU/mL BUN (01/25/2025) ???BUN - 10 mg/dL Cardiac Lipid Panel (01/25/2025) ???Cholesterol - 103 mg/dL???Triglycerides - 42 mg/dL???HDL Cholesterol - 53 mg/dL???LDL Cholesterol - 42 mg/dL???Non HDL Cholesterol - 50 mg/dL CBC (01/27/2025) ???WBC - 5.7 k/mm3???RBC - 4.73 m/mm3???Hgb - 12.4 Gm/dL???Hct - 38.5 %???MCV - 81.4 femtoliters???MCH - 26.2 pg???MCHC - 32.2 Gm/dL???Platelet Count - 239 k/mm3???RDW-SD - 40.0 femtoliters???MPV - 10.1 femtoliters???Nucleated RBC (Automated) - 0.0 #/100 WBC'S???Abs. NRBC - 0.0 k/mm3 CBC w/ Differential (01/25/2025) ???WBC - 6.6 k/mm3???RBC - 4.67 m/mm3???Hgb - 12.1 Gm/dL???Hct - 38.3 %???MCV - 82.0 femtoliters???MCH - 25.9 pg???MCHC - 31.6 Gm/dL???Platelet Count - 263 k/mm3???RDW-SD - 39.9 femtoliters???MPV - 9.8 femtoliters???Nucleated RBC (Automated) - 0.0 #/100 WBC'S???Abs. NRBC - 0.0 k/mm3???Abs. Neut - 4.5 k/mm3???Abs. Lymph - 1.4 k/mm3???Abs. Panola - 0.6 k/mm3???Abs. Eo - 0.1 k/mm3???Abs. Baso - 0.0 k/mm3???Neut % - 67.4 %???Lymph % - 21.4 %???Panola % - 8.6 %???Eos % - 1.5 %???Baso % - 0.6 %???Imm Gran - 0.5 %???Abs. Imm Gran - 0.0 k/mm3 Creatinine (01/25/2025) ???Creatinine-Blood - 0.88 mg/dL???Estimated GFR Creatinine - 84 ML/MIN/1.73 M2 Electrolytes (01/25/2025) ???Sodium - 141 mmol/L???Potassium - 3.7 mmol/L???Chloride - 108 mmol/L???Bicarbonate Level - 24 mmol/L???Anion Gap - 9 mmol/L Glucose Level (01/25/2025) ???Glucose Level - 93 mg/dL Hemoglobin A1C (Monitoring) (01/25/2025) ???Hemoglobin A1C (Monitoring) - 5.1 % Magnesium Level (01/25/2025) ???Magnesium - 2.1 mg/dL NT ProBNP (01/25/2025) ???Nt-Probnp - 87 pg/mL Troponin T, High Sensitivity (01/25/2025) ???High Sensitivity Troponin (HSTnT) - 8 ng/L You will be contacted within 72 hours with your results. Allergies (NKA means No Known Allergies) NKA Problems Active Problems??(9) Arthritis?? Bipolar 1 disorder?? Contraceptive method: female sterilization?? Fibromyalgia?? History of gastric restrictive surgery?? Migraines?? Morbid obesity?? Obstructive sleep apnea?? Severe obesity (BMI 35.0-39.9) with comorbidity?? Education Materials Below is the list of Educational Leaflet Providered with your Discharge Instructions. Valuables and Belongings I fully understand and agree that [facility] accepts no responsibility for all my personal property including clothing, toilet articles, radios, jewelry, dentures, hearing aids, rings, money, or any other property that is in my possession or is brought to me after admission. I understand certain valuables may be placed in a hospital safe for a short period of time. I understand that the hospital is not liable for loss or damage due to accident, fire, or other natural occurrence while said property is in the safe. I accept full responsibility for any personal property that I keep with me, and will not hold the hospital responsible in case of loss or disappearance. I acknowledge that i have been encouraged to send valuables and belongings home. ? Other Discharge Information ? Pulmonary Rehab Status?? Pulmonary Rehab Discharge Status?? Respiratory Rate: 18 br/min ? Common Emergency Awareness Tips IS IT A STROKE? Act FAST and Check for these signs: FACE Does the face look uneven? ARM Does one arm drift down? SPEECH Does their speech sound strange? TIME Call at any sign of stroke ?? Heart Attack Signs Chest discomfort: Most heart attacks involve discomfort in the center of the chest and lasts more than a few minutes, or goes away and comes back. It can feel like uncomfortable pressure, squeezing, fullness or pain. Discomfort in upper body: Symptoms can include pain or discomfort in one or both arms, back, neck, jaw or stomach. Shortness of breath: With or without discomfort. Other signs: Breaking out in a cold sweat, nausea, or lightheaded. Remember, MINUTES DO MATTER. If you experience any of these heart attack warning signs, call to get immediate medical attention! ?? Smoking can increase your chances of developing chronic health problems and can cause harmful effects to other family members in your house. If you smoke, you are strongly encouraged to quit. Please call [facility] [employer] [facility] at [phone] or [phone] ([phone]) or log in to [email or web address] for referrals to smoking cessation programs. ?? 385 Suicide & Crisis Lifeline is available 21/04 if you or someone you know needs to find a reason to keep living. By calling 386 you'll be connected to a skilled, trained counselor at a crisis center in your area. INPATIENT DISCHARGE INSTRUCTIONS SIGNATURE JARRED NIETOLITZA Location:[facility] Registration Date and Time:01/25/2025 17:49 EDT Primary Care Physician: Sydnee Otoole MD, Teena Lamas, Attending Physician: Maria Fernanda BOATENG, Isma Messer, FREDIS CASILLAS, have received the above patient education materials/instructions and have verbalized understanding. If ambulance or transport services are being used I further acknowledge being given a choice of service. ?? If you need to contact me, please call me at this number: . Patient/Engineer Rf Deployment Name: Patient/Engineer Rf Deployment Signature: Relationship to Patient: Witness Name/Signature: Date: * Event Display: Hemodynamic Procedure Report Authored Date: History and physical note * Nic BOATENG, Johnna A: MODIFY, MODIFY, PERFORM Event Display: History and Physical Hospital Authored Date: [id number] Patient: ??YORK, FREDIS ? Age:??44 Years?Sex:??Female?:??1980?? Chief Complaint/Reason for Consultation Unstable angina History of Present Illness 01/25 ?? 44 yo female with pmh of??obesity/gastric sleeve surgery, bipolar, depression, HTN, TERESO, GERD, anemia, angina. Patient transferred from [facility] for UA. ?? 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 ?? Patient tells me that she started having chest pain last night while watching TV. ??The pain was inthe center of the chest, localized, no radiation, felt like a pressure,??07/08 severity, no aggravating relieving factor, associated with shortness of breath, dizzy/lightheaded. ??No nausea/vomiting,no??profuse sweating.?? Patient went to [facility].?? The pain subsequently improved and currently does not have any chest pain. ??She does have??history of intermittent chest pain??and shortness of breath on minimal exertion. ??No recent fever, chill, cough, abdominal pain, diarrhea or urinary symptoms, leg pain or leg swelling. ?? As per document patient had a recent??abnormal echo showing inferior wall motion abnormality??and she does have recurrent??chest pain, hence she was scheduled for angiogram at [facility] in mid January. ?? EKG at OSH with no ST/T changes. First trop neg. Evaluated by cardiology who recommended full lovenox and??transfer to [facility] for urgent angiogram.? From??outside hospital documents: Vitals stable. Labs: CBC, CMP mostly wnl. HS Trop: <2.7 EKG: Sinus,??Hr??90, QTc??437, poor r wave progression, no ST/T??changes. ?? At this time patient does not have any chest pain, feels better. ?? Patient denies tobacco/drug/alcohol. Her mother has a pacemaker. Review of Systems All systems reviewed and negative except as in HPI. Objective Measurements?? Height: 160 cm (01/25/25) Weight: 91.6 kg (01/25/25) Dry Weight: 91.6 kg (01/25/25) Body Mass Index:??35.78 kg/m2??Critical (01/25/25) ? Vital Signs?? Temperature: 98 DegF (01/25/25 18:35:00) Temperature Route: Oral (01/25/25 18:35:00) Pulse Rate: 76 bpm (01/25/25 18:35:00) Respiratory Rate: 18 br/min (01/25/25 18:35:00) Systolic Blood Pressure: 116 mm Hg (01/25/25 18:35:00) Diastolic Blood Pressure: 68 mm Hg (01/25/25 18:35:00) Blood pressure sites: Arm, right (01/25/25 18:35:00) Mean Arterial Pressure: 84 mm Hg (01/25/25 18:35:00) Pulse Pressure: 48 mm Hg (01/25/25 18:35:00) Oxygen Saturation: 98 % (01/25/25 18:00:00) Mode of Delivery (Oxygen): Room air (01/25/25 18:00:00) Early Warning Score: 0 (01/25/25 18:44:30) ? Physical Exam Constitutional: ??Alert,??no acute distress, co-operative, lying on the bed, saturating well on room air. ??Obesity. Mental state: Oriented x 3. Head: ??Normocephalic, atraumatic. ?? Eye:?No discharge. ENT: No discharge. Neck: ??Supple,??no JVD. Cardiovascular: ??S1, S2. Regular rhythm. No MRG. Respiratory: ??Lungs are clear to auscultation b/l, No RRR. ?? Gastrointestinal: ??Soft, Nontender, Non distended, ??Normal bowel sounds.?? Genitourinary: No costovertebral angle tenderness. Neurological: ??Cranial nerves intact. Motor and sensory intact. Back: ??Nontender. Musculoskeletal: ??Normal ROM.?? No edema Hematology: No lymphadenopathy Skin: ??Warm, dry. Psychiatric: ??Cooperative.?? Assessment/Plan Diagnoses Bipolar disorder ??(F31.9) Dental infection ??(K04.7) HTN (hypertension) ??(I10) Mood disorder ??(F39) TERESO (obstructive sleep apnea) ??(G47.33) Unstable angina ??(I20.0) ?? Assessment:??44 yo female with pmh of??obesity/gastric sleeve surgery, bipolar, depression, HTN, TERESO, GERD, anemia, angina. Patient transferred from [facility] for UA. ?? Unstable angina (I20.0):??Patient with recent??history of recurrent chest pain, and had an abnormalecho with??inferior wall motion abnormality,??was planned to have??angiogram??at [facility] in mid January.??However patient started having chest pain at rest yesterday night,??was taken to??[facility],??troponin negative,??seen by cardiology, recommended full anticoagulation with Lovenox and transferred to [facility]??for??cardiac cath.??Patient did receive??Lovenox??at outside hospital.??At this time no chest pain, EKG nonischemic. ?? Continue telemetry Continue Lovenox full dose. Continue aspirin 81 mg p.o. Sublingual nitroglycerin and IV morphine for chest pain. Will continue atorvastatin. Continue beta-juana. Will check baseline labs, troponin, proBNP,??A1c,??lipid panel. Cardiology consult for??possible cardiac cath. Will keep n.p.o. after midnight. Had a recent echo, will leave to cardiology. ?? HTN (hypertension) (I10):??Patient seems to be on multiple medications??including??metoprolol, losartan, hydralazine, amlodipine.??At this time blood pressure is well-controlled,??systolic 120s.??I will continue metoprolol and losartan with holding parameter.??Resume amlodipine and hydralazine if blood pressure??stays elevated. ?? TERESO (obstructive sleep apnea) (G47.33):??CPAP nightly ?? Dental infection (K04.7):??Patient was recently prescribed amoxicillin for dental infection,??she states that she has not completed the dose, it seems??about 3 days is remaining, will??complete. ?? Mood disorder (F39) Bipolar disorder (F31.9) ? Continue home medications including duloxetine 20 mg daily,??bupropion 10 mg 3 times a day, mirtazapine 7.5 mg at night. ?? VTE Prophylaxis:??Lovenox ?VTE Prophylaxis Assessment:??Risk Level documented as Low Risk ?? Code Status:??Full code ?Order Code Status:??Code Status Ordered ? Histories Allergies Allergies ?(Active and Proposed Allergies Only) NKA? (Severity: Unknown severity, Onset: Unknown) ? Past Medical History/Problem List Active Problems(9) Arthritis Bipolar 1 disorder Contraceptive method: female sterilization Fibromyalgia History of gastric restrictive surgery Migraines Morbid obesity Obstructive sleep apnea Severe obesity (BMI 35.0-39.9) with comorbidity ? Past Surgical History Tubal Ligation: 2004 Sleeve gastrectomy with duodenal switch section delivery ? Social History Alcohol Details:??Use: Never. Employment/School Details:??Status: Unemployed. Exercise Details:??Regular exercise: No. Home/Environment Details:??Lives with: Children, Spouse. Nutrition/Health Details:??Diet: Regular. Sexual Details:??Sexually involved in last 6 months: Yes. Substance Abuse Details:??Use: Never. Tobacco Details:??Use: Never (less than 100 in lifetime). ? Family History Mother: Arthritis; Diabetes mellitus; Heart disease; Hypertension ? Medications Home Medications Acetaminophen (acetaminophen 325 mg oral tablet)??975 Milligram 3 tablet By Mouth Every 6 hours amiTRIPTYLINE??By Mouth Daily at bedtime Amlodipine??By Mouth Daily Durable Medical Equipment (CPAP ??Machine)??See Instructions CPAP 11 Ferrous Sulfate (ferrous sulfate 325 mg oral tablet)??1 tab(s) 325 Milligram By Mouth 3 times a dayTake 1 tablet daily x 1 week, if tolerated take 1 tablet two times a day Fluconazole (Diflucan 150 mg oral tablet)??1 tab(s) 150 Milligram By Mouth Once Hydrochlorothiazide (HydroCHLOROthiazide Tablet)??By Mouth Daily Ibuprofen (ibuprofen 600 mg oral tablet)??600 Milligram 1 tablet By Mouth Every 6 hours as needed Pain , Mild Losartan (Losartan Tablet)??By Mouth Daily Meclizine (meclizine 50 mg oral tablet)??1 tab(s) 50 Milligram By Mouth 2 times a day as needed dizziness Metoprolol (metoprolol (OP))??See Instructions 1 daily Miconazole Topical (Monistat 3 4% cream with applicator)??1 radha Vaginally Daily at bedtime Multivitamin With Iron (Iron-150 oral tablet)??1 tab(s) By Mouth Daily for 30 Days Multivitamin With Iron (Vitamin B Complex with C and Iron oral capsule)??1 capsule By Mouth Daily Omeprazole (Prilosec OTC)??20 Milligram By Mouth Daily Oxycodone (oxyCODONE 5 mg oral tablet)??5 Milligram 1 tablet By Mouth Every 6 hours as needed as needed for pain PEG Electrolyte Solution (MiraLax)??17 gram By Mouth Daily Prazosin??By Mouth Daily at bedtime Senna (Senna 8.6 mg oral tablet)??8.6 Milligram 1 tab(s) By Mouth Daily at bedtime Simethicone (simethicone 125 mg oral capsule)??1 capsule 125 Milligram By Mouth 4 times a day as needed Gas Trazodone??By Mouth Daily at bedtime ? Inpatient Medications Medications (18) Active SCHEDULED: (9) Amoxicillin 250 mg Capsule (Amoxicillin Capsule) ??500 mg, By Mouth, 3 times a day Aspirin 81 mg EC Tablet (Aspirin Tablet) ??81 mg, By Mouth, Daily Atorvastatin 40 mg Tablet (atorvastatin 40 mg oral tablet) ??40 mg, By Mouth, Daily at bedtime BusPIRone 10 mg Tablet (busPIRone 10 mg oral tablet) ??10 mg, By Mouth, 3 times a day Duloxetine 20 mg Capsule (DULoxetine Capsule) ??20 mg, By Mouth, Daily Losartan 50 mg Tablet (losartan 50 mg oral tablet) ??50 mg, By Mouth, Daily Metoprolol 50 mg XL Tablet (metoprolol 50 mg oral tablet, extended release) ??50 mg, By Mouth, Daily Mirtazapine 15 mg Tablet (mirtazapine 15 mg oral tablet) ??7.5 mg, By Mouth, Daily at bedtime NaCl 0.9% Flush 3ml (NaCL 0.9% Flush) ??3 mL, IV Push, Every 8 hours CONTINUOUS: (0) PRN: (9) Acetaminophen 325 mg Tablet (Acetaminophen Tablet) ??650 mg, By Mouth, Every 4 hours Dextromethorphan-Guaifenesin 20 mg-200 mg/10 mL Liqu UD (Robitussin DM Liquid) ??10 mL, By Mouth, Every 4 hours Melatonin 3 mg Tablet (Melatonin Tablet) ??3 mg, By Mouth, Daily at bedtime MorPHINE 4 mg Inj Syringe (MorPHINE Inj) ??4 mg, IV Push Slowly, Every 4 hours NaCl 0.9% Flush 3ml (NaCL 0.9% Flush) ??3 mL, IV Push, Every 8 hours Nitroglycerin 0.4 mg Sublingual Tablet (Nitroglycerin 0.4mg Sublingual Tablet) ??0.4 mg, Sublingual, Every 5 minutes Polyethylene Glycol 17 Gm Powder (MiraLax Powder) ??17 Gm 1 pack/packet, By Mouth, Daily Senna Tablet ??8.6 mg 1 tablet, By Mouth, 2 times a day Simethicone 80 mg Chewable Tablet (Simethicone Tablet) ??80 mg, Chew, 3 times a day ? Results Recent Labs No labs resulted between 01/24/2025 00:00 and 01/25/2025 21:00? EKG study * Event Display: ECG 12-Lead Authored Date: Please click on pdf link to open report * Event Display: ECG 12-Lead Authored Date: Ventricular Rate: 78 BPM Atrial Rate: 78 BPM P-R Interval: 166 ms QRS Duration: 92 ms Q-T Interval: 382 ms QTC Calculation(Bazett): 435 ms P Richmond: 33 degrees R Richmond: -10 degrees T Richmond: 28 degrees Normal sinus rhythm Normal ECG No previous ECGs available Confirmed by CAROLINA AN ([id number]) on 01/26/2025 8:46:17 AM [place]: CAROLINA AN Cardiology * Event Display: Cardiac Rhythm Strips Authored Date: * Event Display: Cardiology Office Note, Non-BH Authored Date: Hospital Progress note * Fiona Marmolejo RN: PERFORM, SIGN, VERIFY Event Display: Progress Note Hospital Authored Date: Patient: FREDIS YORK Age: 44 years Sex: Female : 1980 Associated Diagnoses: None Author: Fiona Marmolejo RN Findings Evaluation Patient alert and oriented x 4, peruvian speaking. Normal sinus rhythm on telemetry. Ambulates independently. Awaitng discharge this morning. See CIS for complete assessment. No further needs identified at the time of this note. . Discharge Information Case Management Discharge Plan : Case Management Discharge Plan Data 01/27/2025 14:05 EDT Discharge Level of Care at Discharge Home/Senior Care/Foster Care * Gisele BASSETT, Safia: MODIFY, SIGN, VERIFY, PERFORM Event Display: Progress Note Hospital Authored Date: Patient: FREDIS YORK Age: 44 years Sex: Female : 1980 Associated Diagnoses: None Author: Safia Jaquez RN Findings Problem Related to Alteration in Cardiac Function (new) : Alteration in Cardiac Function/new 01/26/2025 21:00 EDT Alteration in Cardiac Status Related to ACS, Cardiac Procedure, Chest pain Goals & Outcomes, Cardiac Status Pt will resume/maintain adequate cardiac output, Pt will resume/maintain adequate hemodynamic status, Pt will resume/maintain adequate respiratory function, Pt will resume/maintain intact neuro function, Pt will maintain adequate GI/ function appropriate for pt, Pt will maintain adequate nutrition status, Pt/caregiver will state understanding of diagnosis, Pt/caregiver will state strategies to reduce risk factors, Pt/caregiver will state understanding of procedure, Pt will state pain at procedure site to be tolerable Cardiac Interventions Implemented Assess/monitor cardiac status, Assess/monitor neuro status, Assess/monitor respiratory status, Assess for tolerance of IV infusions; verify rate & dose, Call/Report variances in ECG to provider, Document & Monitor O2 Sats; Administer O2 as ordered, If no bowel movement in 3 days activate bowel regime, Monitor & document daily weight, Monitor anticoagul ation values, Monitor ECG w/administration of antiarrhythmics (CO 13.420), Obtain 12 Lead ECG and CXR as ordered, Apply pressure at puncture site if hematoma develops, Assess baseline peripheral pulses, Assess for post procedural discomfort, Assess for post procedural hematoma at site, Assess procedure site for distal pulses, Assist with femstop application as needed, Implement post procedure orders, Pre/post cath guideline BH Goals/Interventions, Cardiac Yes Cardiac, Problem Start 01/25/2025 21:00 Reviewed Plan with, Cardiac Status Patient Patient Progression, Cardiac Status Patient progressing according to plan . Narrative/Incidental Patient A&Ox4, able to make needs known. Sierra Leonean speaking only, hotel night auditor used for assessment. NSR on tele. Room air. S/p cath. Right radial site stable, dressing c/d/i. Patient later endorsed pain/tenderness to radial site. Tylenol administered, ice pack applied, wrist elevated on pilllows. Wrist appears swollen, soft but tender to palpation, sensation and movement intact, +radial pulses. Reports her fingers feel heavy and slow with movement. Covering Dayana Salvador notified and to bedside to assess. Continue to ice and elevate and ice per covering. Reports decrease pain after Tylenol. Has call king and personal belongings in reach, bed locked in low position. * Maria Fernanda BOATENG, Isma Messer: PERFORM Event Display: Progress Note Hospital Authored Date: [id number] Patient: ??FREDIS YORK ? Age:??44 Years?Sex:??Female?:??1980?? Subjective 01/26: Accepted patient under my care at 7AM. Chart reviewed, saw and examined patient.?Patient presently asymptomatic, n.p.o., awaiting cath. ??In the mid afternoon I was informed by Dr. Lira??that patient underwent??negative LHC in??can be discharged in a.m.?? Diet is resumed. ?? Review of Systems Constitutional:??denies F/C Cardiovascular:?no CP or palpitations Respiratory:??no SOB or significant cough Gastrointestinal:??no N/V/D :??no complaints Objective Measurements?? Height: 160 cm (01/26/25) Weight: 91.5 kg (01/26/25) Dry Weight: 91.6 kg (01/25/25) Body Mass Index:??35.74 kg/m2??Critical (01/26/25) ? Vital Signs?? Temperature: 97.7 DegF (01/26/25 14:57:00) Temperature Route: Oral (01/26/25 14:57:00) Pulse Rate: 72 bpm (01/26/25 14:57:00) Respiratory Rate: 18 br/min (01/26/25 14:57:00) Systolic Blood Pressure: 127 mm Hg (01/26/25 14:57:00) Diastolic Blood Pressure: 78 mm Hg (01/26/25 14:57:00) Blood pressure sites: Arm, left (01/26/25 14:57:00) Mean Arterial Pressure: 94 mm Hg (01/26/25 14:57:00) Pulse Pressure: 49 mm Hg (01/26/25 14:57:00) Oxygen Saturation: 98 % (01/26/25 14:57:00) Mode of Delivery (Oxygen): Room air (01/26/25 14:57:00) Early Warning Score: 2 (01/26/25 14:58:22) ? Pain Scores?? No qualifying data available. ?? Intake/Output? No Data Available ? Physical Exam Constitutional: Alert, in no acute distress. Head EENT: PERRL.??NCAT. Neck: Supple. No obvious LAD. Respiratory: CTAB. No use of accessory muscles. Cardiovascular: S1S2 present. No obvious JVD. Gastrointestinal: Abdomen soft, non-tender, non-distended. Bowel sounds present. Genitourinary: No CVA tenderness. Genital exam deferred. Extremities: No lower extremity pitting??edema. No cyanosis or clubbing. Neurologic: Alert, generally appropriate. Speech normal. No gross focal neurological deficits.n _ Inpatient Medications Medications (20) Active SCHEDULED: (10) Amoxicillin 250 mg Capsule (Amoxicillin Capsule) ??500 mg, By Mouth, 3 times a day Aspirin 81 mg EC Tablet (Aspirin Tablet) ??81 mg, By Mouth, Daily Atorvastatin 40 mg Tablet (atorvastatin 40 mg oral tablet) ??40 mg, By Mouth, Daily at bedtime BusPIRone 10 mg Tablet (busPIRone 10 mg oral tablet) ??10 mg, By Mouth, 3 times a day Duloxetine 20 mg Capsule (DULoxetine Capsule) ??20 mg, By Mouth, Daily Enoxaparin 100 mg Inj (Enoxaparin Inj) ??90 mg 0.9 mL, Subcutaneous Injection, Every 12 hours Losartan 50 mg Tablet (losartan 50 mg oral tablet) ??50 mg, By Mouth, Daily Metoprolol 50 mg XL Tablet (metoprolol 50 mg oral tablet, extended release) ??50 mg, By Mouth, Daily Mirtazapine 15 mg Tablet (mirtazapine 15 mg oral tablet) ??7.5 mg, By Mouth, Daily at bedtime NaCl 0.9% Flush 3ml (NaCL 0.9% Flush) ??3 mL, IV Push, Every 8 hours CONTINUOUS: (1) Sodium Chloride 0.9% 1000 mL [3 mL/kg/hr] (Sodium Chloride 0.9% Normalized 1000 mL [3 mL/kg/hr]) ??1,000 mL, IV Infusion, 274.8 mL/hr PRN: (9) Acetaminophen 325 mg Tablet (Acetaminophen Tablet) ??650 mg, By Mouth, Every 4 hours Dextromethorphan-Guaifenesin 20 mg-200 mg/10 mL Liqu UD (Robitussin DM Liquid) ??10 mL, By Mouth, Every 4 hours Melatonin 3 mg Tablet (Melatonin Tablet) ??3 mg, By Mouth, Daily at bedtime MorPHINE 4 mg Inj Syringe (MorPHINE Inj) ??4 mg, IV Push Slowly, Every 4 hours NaCl 0.9% Flush 3ml (NaCL 0.9% Flush) ??3 mL, IV Push, Every 8 hours Nitroglycerin 0.4 mg Sublingual Tablet (Nitroglycerin 0.4mg Sublingual Tablet) ??0.4 mg, Sublingual, Every 5 minutes Polyethylene Glycol 17 Gm Powder (MiraLax Powder) ??17 Gm 1 pack/packet, By Mouth, Daily Senna Tablet ??8.6 mg 1 tablet, By Mouth, 2 times a day Simethicone 80 mg Chewable Tablet (Simethicone Tablet) ??80 mg, Chew, 3 times a day ? 72 Hour Antibiotic History Active Antibiotics Calendar Day Last Administered First Administered Amoxicillin??500 mg, By Mouth, 3 times a day ?1 01/26/2025 08:00 01/26/2025 08:00 ? Results Recent Labs BLOOD COUNT & DIFF WBC 6.6 k/mm3 ()?? 01/25/2025 21:40 RBC 4.67 m/mm3 ()?? 01/25/2025 21:40 Hgb 12.1 Gm/dL ()?? 01/25/2025 21:40 Hct 38.3 % ()?? 01/25/2025 21:40 MCV 82.0 femtoliters ()?? 01/25/2025 21:40 MCH 25.9 pg (Low)?? 01/25/2025 21:40 MCHC 31.6 Gm/dL (Low)?? 01/25/2025 21:40 Platelet Count 263 k/mm3 ()?? 01/25/2025 21:40 RDW-SD 39.9 femtoliters ()?? 01/25/2025 21:40 MPV 9.8 femtoliters ()?? 01/25/2025 21:40 Nucleated RBC (Automated) 0.0 #/100 WBC'S ()?? 01/25/2025 21:40 Abs. NRBC 0.0 k/mm3 ()?? 01/25/2025 21:40 Abs. Neut 4.5 k/mm3 ()?? 01/25/2025 21:40 Abs. Lymph 1.4 k/mm3 ()?? 01/25/2025 21:40 Abs. Panola 0.6 k/mm3 ()?? 01/25/2025 21:40 Abs. Eo 0.1 k/mm3 ()?? 01/25/2025 21:40 Abs. Baso 0.0 k/mm3 ()?? 01/25/2025 21:40 Neut % 67.4 % ()?? 01/25/2025 21:40 Lymph % 21.4 % ()?? 01/25/2025 21:40 Panola % 8.6 % ()?? 01/25/2025 21:40 Eos % 1.5 % ()?? 01/25/2025 21:40 Baso % 0.6 % ()?? 01/25/2025 21:40 Imm Gran 0.5 % ()?? 01/25/2025 21:40 Abs. Imm Gran 0.0 k/mm3 ()?? 01/25/2025 21:40 ?? CARDIAC Nt-Probnp 87 pg/mL ()?? 01/25/2025 21:40 High Sensitivity Troponin (HSTnT) 8 ng/L ()?? 01/25/2025 21:40 ?? CHEM GENERAL Sodium 141 mmol/L ()?? 01/25/2025 21:40 Potassium 3.7 mmol/L ()?? 01/25/2025 21:40 Chloride 108 mmol/L (High)?? 01/25/2025 21:40 Bicarbonate Level 24 mmol/L ()?? 01/25/2025 21:40 Anion Gap 9 mmol/L ()?? 01/25/2025 21:40 Glucose Level 93 mg/dL ()?? 01/25/2025 21:40 Hemoglobin A1C (Monitoring) 5.1 % ()?? 01/25/2025 21:40 BUN 10 mg/dL ()?? 01/25/2025 21:40 Creatinine-Blood 0.88 mg/dL ()?? 01/25/2025 21:40 Estimated GFR Creatinine 84 ML/MIN/1.73 M2 ()?? 01/25/2025 21:40 Magnesium 2.1 mg/dL ()?? 01/25/2025 21:40 AST (SGOT) 14 units/L ()?? 01/25/2025 21:40 ALT (SGPT) 9 units/L ()?? 01/25/2025 21:40 ?? ENDOCRINE/TUMOR MARKER Blood <1 mIU/mL ()?? 01/25/2025 21:40 ?? LIPID STUDIES Cholesterol 103 mg/dL ()?? 01/25/2025 21:40 Triglycerides 42 mg/dL ()?? 01/25/2025 21:40 HDL Cholesterol 53 mg/dL ()?? 01/25/2025 21:40 LDL Cholesterol 42 mg/dL ()?? 01/25/2025 21:40 Non HDL Cholesterol 50 mg/dL ()?? 01/25/2025 21:40 ?? URINE OTHER Est Creatinine Clearance 68.16 mL/min ()?? 01/25/2025 22:25 ? Assessment/Plan Diagnoses Bipolar disorder ??(F31.9) Dental infection ??(K04.7) HTN (hypertension) ??(I10) Mood disorder ??(F39) TERESO (obstructive sleep apnea) ??(G47.33) Unstable angina ??(I20.0) ?? Assessment:??44 yo female with pmh of??obesity/gastric sleeve surgery, bipolar, depression, HTN, TERESO, GERD, anemia, angina. Patient transferred from [facility] for unstable angina??on 01/25, recommended for??LHC, which was performed 01/[address] Lira. ?? Unstable angina (I20.0):??Patient with recent??history of recurrent chest pain, and had an abnormalecho with??inferior wall motion abnormality,??was planned to have??angiogram??at [facility] [place] mid [place].??However patient started having chest pain at rest yesterday night,??was taken to??[facility],??troponin negative,??seen by cardiology, recommended full anticoagulation with Lovenox and transferred to [facility]??for??cardiac cath.??Patient did receive??Lovenox??at outside hospital.??At this time no chest pain, EKG nonischemic. ?? -Continue telemetry -Continue aspirin 81 mg p.o. -Continue atorvastatin. -Continue beta-juana. -Cardiology consult was requested on admission, deferred per??Dr. Lira, who recommended just go straight to cath -Monitor overnight post cath, can likely discharge in the morning ?? HTN (hypertension) (I10):??Patient seems to be on multiple medications??including??metoprolol, losartan, hydralazine, amlodipine.??At this time blood pressure is well-controlled,??systolic 120s.?? -Continue metoprolol and losartan with holding parameter -Resume amlodipine and hydralazine if blood pressure??stays elevated. ?? TERESO (obstructive sleep apnea) (G47.33):??CPAP nightly ?? Dental infection (K04.7):??Patient was recently prescribed amoxicillin for dental infection,??she states that she has not completed the dose, it seems??about 3 days is remaining, -Continue amoxicillin as per prior plan ?? Mood disorder (F39) Bipolar disorder (F31.9) -Continue home medications including duloxetine 20 mg daily,??bupropion 10 mg 3 times a day, mirtazapine 7.5 mg at night. ?? Please note, dictation software ([employer])??may have been used in the preparation of this note, and may have generated unintentional errors in speech recognition. If there are any questions going forward, please reach out for clarification. ?? Estimated Discharge Date - Ordered?-- Anticipated Date: 01/27/25, 01/26/25 15:19:00 EDT ?? Patient Care team information Care Team Personnel Name: Teena Castillo MD Position: [facility] Outreach Member Role: PCP Address: [address] [place] [address] [place] [address] Telecom: Name: Lisbet Castañeda RN Position: [facility] RN Member Role: Primary Care Nurse Care Team Related Persons Name: SATNAM MENDOZA Insurance Providers Guarantor name: FREDIS YORK Health Plan Information #: 1 Payer: [facility] Member Number: [id number] Policy Number: NA Group Number: NA Health Plan Information #: 2 Payer: [employer] Member Number: [id number] Policy Number: NA Group Number: NA Health Plan Information #: 3 Payer: [employer] Member Number: [id number] Policy Number: NA Group Number: NA
--- OUTSIDE RECORDS SUMMARY | 2025-02-01 11:51 | XMS_ITS | Clinical Summary ---
Author Organization [facility] ity Address [address] [place] [address] Care Team Providers Care Veterinary Anatomist Name Role Phone Teena Castillo MD Primary [...] age to complete this topic Care Teams Veterinary Anatomist Relationship Specialty Start Date End Date Teena Castillo MD [address] [place] [phone] PCP - General Internal Medicine 12/31/21
[2025-02-01 11:55] LABS: Potassium 3.4 mmol/L (3.3-5.1)
== END 2025-02-01 10:20 | disposition home or self-care (01) ==
LOC: HO.LAB 10:19
PROVIDERS: PCP Internal Medicine
DX: E87.6 Hypokalemia (principal)
CPT/HCPCS: 36415; 84132

== ENCOUNTER 2025-02-07 11:59 | Emergency (ER) | payer MEDICAID, SELFPAY ==
--- NOTE | 2025-02-07 | ECG_ITS ---
Test Reason : cp Blood Pressure : */* mmHG Vent. Rate : 87 BPM Atrial Rate : 87 BPM P-R Int : 150 ms QRS Dur : 84 ms QT Int : 368 ms P-R-T Axes : 40 -2 36 degrees QTcB Int : 442 ms Normal sinus rhythm Nonspecific T wave abnormality Abnormal ECG When compared with ECG of 25-Jan-2025 10:15, No significant change was found Referred By: Generic ED Physician Electronically Signed By: ANY WEBBER MD
--- NOTE | ~2025-02-07 | XR_ITS ---
EXAMINATION: XR CHEST CLINICAL INFORMATION: pain COMPARISON: 12/13/2021. TECHNIQUE: 2 views of the chest were obtained. FINDINGS: The cardiac, hilar, and mediastinal contours are normal. The lungs are clear bilaterally. There is no pneumothorax or pleural effusion. There is no focal osseous or soft tissue abnormality. Surgical clips in the epigastric region. XR/XR chest 2V IMPRESSION: No active pulmonary disease. Electronically signed by: Ray Tamez MD 02/07/2025 12:54 PM EDT
[2025-02-07 12:33] VITALS: BP 118/64; PULSE 88; RESP 18; TEMP 36.3; O2SAT 96; BMI 34.1
--- NOTE | 2025-02-07 12:34 | ED.GENADULT ---
HPI - General Adult General Chief complaint: Chest Pain Stated complaint: Chest Pain X 2 Months Time Seen by Provider: 02/07/25 13:45 Source: patient Mode of arrival: ambulatory Limitations: no limitations History of Present Illness ED Provider: Dr. Bill HPI narrative: 44 year old female PMH: past medical history significant for hypertension, angina, GERD, bipolar disorder seen here and transferred where she states she had a cardiac cath at another facility here for continued chest pain. NO falls injury ough or shortness of breath. XR and labs sent in triage. Related Data Home Medications ?Medication ?Instructions ?Recorded ?Confirmed duloxetine 60 mg capsule,delayed 60 mg PO DAILY 11/06/21 01/25/25 release meclizine 25 mg tablet 50 mg PO BID PRN Vertigo 11/06/21 01/25/25 metoprolol succinate 50 mg 50 mg PO DAILY 11/06/21 01/25/25 tablet,extended release 24 hr cholecalciferol (vitamin D3) 25 25 mcg PO DAILY 02/11/23 01/25/25 mcg (1,000 unit) capsule (Vitamin D3) ferrous sulfate 325 mg (65 mg 325 mg PO DAILY 02/11/23 01/25/25 iron) tablet (FeroSul) hydralazine 25 mg tablet 25 mg PO TIDWM 02/11/23 01/25/25 losartan 100 mg tablet 100 mg PO DAILY 02/11/23 01/25/25 multivitamin 1 tab PO DAILY 02/11/23 01/25/25 amlodipine 10 mg tablet 10 mg PO DAILY 06/17/23 01/25/25 duloxetine 20 mg capsule,delayed 20 mg PO DAILY 12/20/24 01/25/25 release acetaminophen 500 mg tablet 500 mg PO Q6H PRN mild pain 01/25/25 01/25/25 amoxicillin 500 mg capsule 500 mg PO Q8H 01/25/25 01/25/25 baclofen 10 mg tablet 10 mg PO TID 01/25/25 01/25/25 buspirone 10 mg tablet 10 mg PO TID anxiety 01/25/25 01/25/25 chlorhexidine gluconate 0.12 % 15 ml PO BID 01/25/25 01/25/25 mouthwash ibuprofen 600 mg tablet 600 mg PO Q6H PRN mild pain 01/25/25 01/25/25 mirtazapine 7.5 mg tablet 7.5 mg PO BEDTIME insomnia 01/25/25 01/25/25 tirzepatide (weight loss) 7.5 7.5 mg subcut FR 01/25/25 01/25/25 mg/0.5 mL subcutaneous pen injector (Zepbound) vitamin B complex-folic acid 0.4 1 tab PO DAILY 01/25/25 01/25/25 mg tablet (B Complex 1 (with folic acid)) Previous Rx's ?Medication ?Instructions ?Recorded aspirin 81 mg tablet,delayed 81 mg PO DAILY #90 tabs 01/07/25 release (Adult Aspirin Regimen) atorvastatin 20 mg tablet 20 mg PO DAILY #90 tabs 01/07/25 atorvastatin 40 mg tablet 40 mg PO DAILY #1 tab 01/25/25 enoxaparin 80 mg/0.8 mL 80 mg (0.8 mL) subcut Q12H #1 mL 01/25/25 subcutaneous syringe nitroglycerin 0.4 mg sublingual 0.4 mg sublingual Q5MX3 PRN Chest 01/25/25 tablet (Nitrostat) Pain #1 tab Allergies Allergy/AdvReac Type Severity Reaction Status Date / Time No Known Allergies Allergy Verified 02/07/25 12:37 Review of Systems Review of Systems: Review of systems: General: Patient denies any fever chills recent illness or falls Musculoskeletal: Denies back pain or body aches or other injuries HEENT: denies headache, runny nose, ear pain Respiratory: denies shortness of breath, cough Cardiovascular: chest pain no palpitations : denies dysuria, frequency Abdomen: no nausea vomiting denies abdominal pain Extremities: no swelling, no pain Skin: no diaphoresis Yes all other systems are reviewed and are negative [facility] Past Medical History Medical History Steatosis, liver BMI 38.0-38.9,adult BMI 39.0-39.9,adult Obesity Vitamin A deficiency H. pylori infection GERD (gastroesophageal reflux disease) Obstructive sleep apnea on CPAP Morbid obesity Excessive daytime sleepiness Anemia Bipolar 1 disorder Depression Arthritis Migraine Fibromyalgia Sleep apnea Vertigo HTN (hypertension) Surgical History S/P laparoscopic sleeve gastrectomy Hx of tubal ligation Hx of section Family History Family History Mother Hypertension Heart problem Arthritis Diabetes Pacemaker Father Vitiligo Sister No problems noted. Sister No problems noted. Sister No problems noted. Sister No problems noted. Sister No problems noted. Brother No problems noted. Brother No problems noted. Son No problems noted. Son No problems noted. Social History Social History Household Members: Spouse and Children Are you a primary critical care paramedic to a significant other at home: No Do you presently have visiting nurse or other home services: No Alcohol intake: current Alcohol intake frequency: does not drink Patient Tobacco Use Status: Never used Tobacco Smoked in Last 30 Days: No Use of substances other than those prescribed or required for medical reasons: No Advance Directives: No Advance Directives Information Provided: Yes Do you have a plan to hurt others: No Plan Patient : No service: No Current occupational status: disabled Physical Exam ED Vital Signs: Vital Signs - 24 hr 02/07/25 12:33 02/07/25 14:08 02/07/25 14:11 Temperature 97.3 F Pulse Rate 88 85 Respiratory Rate 18 18 18 Blood Pressure 118/64 99/66 Pulse Oximetry 96 97 Oxygen Delivery Method Room Air Room Air BMI result Body Mass Index 34.1 General: Well-appearing well-nourished in no signs of distress HEENT: Normocephalic atraumatic Neck: No signs of JVD, no masses no tenderness or lymphadenopathy Cardiovascular: Regular rate and rhythm Respiratory: Clear to auscultation bilaterally Abdomen: Soft nontender no masses Extremities: Normal pedal pulses no signs of edema Skin: Dry warm no rashes Back: No tenderness full ROM Course Course Course Narrative: RME, this is a rapid medical exam performed by Hilario Moise please refer to primary provider for complete H&P- 44-year-old female with past medical history significant for hypertension, angina, GERD, bipolar disorder presents for evaluation of chest pain since this morning. She has associated shortness of breath. She was seen here on January 21, 2025 and ultimately transferred to [facility] due to chest pain with angina. She reports having had a cardiac catheterization we will attempt to get records. Plan for EKG, labs and a chest x-ray. The patient admits to taking nitro prior to arrival which improved her pain Reevaluation(s) Reevaluation #1: 1407 Troponin and labs were all normal I did review the cardiac catheterization that was done and it was completely normal every single vessel was normal I do not think this is cardiac related I do think the patient is fine with going home and following up with her senior mobile web developer for Melly couch which was the recommendation from [facility]. Medical Decision Making Medical Decision Making [facility] Narrative: I will check labs give ACS workup as the patient recently had abnormal EKG a catheterization at another hospital we will continue with workup and reassess. Differential Diagnosis Differential Diagnoses: The differential diagnosis associated with the presentation includes Chest pain ACS less likely PE patient is not toxic in appearance you do not think this is some for pneumonia she has no infectious symptoms x-ray is normal Admission/Observation Consideration of admission/observation: Escalation of care including admission/observation considered Lab Data [facility] Lab Attestation statement: I reviewed the patient's lab results. 02/07/25 13:28 02/07/25 13:28 Labs: Lab Results 02/07/25 Range/Units 13:28 WBC 6.8 (4.8-10.8) X10*3/uL RBC 5.17 (4.20-5.50) X10*6/uL Hgb 13.6 (12.0-16.0) g/dl Hct 42.4 (37.0-47.0) % MCV 82.0 (80.0-98.0) fL MCH 26.3 L (27.0-33.0) pg MCHC 32.1 (31.0-35.0) g/dl RDW 14.2 (11.0-16.0) % Plt Count 271 (160-400) X10*3/uL MPV 9.5 (9.4-12.3) fL Immature Gran % (Auto) 0.3 (0.0-0.4) % Neut % (Auto) 63.7 (45-73) % Lymph % (Auto) 25.0 (20-40) % Wood % (Auto) 8.5 (2-11) % Eos % (Auto) 1.6 (0-4) % Baso % (Auto) 0.9 (0-2) % Lymph # (Auto) 1.7 (1.2-4.9) X10*3/uL Wood # (Auto) 0.6 (0.1-1.2) X10*3/uL Eos # (Auto) 0.1 (0.0-0.4) X10*3/uL Baso # (Auto) 0.1 (0.0-0.2) X10*3/uL Abs Immat Gran (auto) 0.02 (0.00-0.03) X10*3/uL Absolute Neuts (auto) 4.3 (2.0-8.3) x10*3/uL Absolute Nucleated RBC 0.000 (0.0-0.012) X10*3/uL Nucleated RBC % (auto) 0.0 (0.0-0.2) /100WBC Sodium 140 (135-145) mmol/L Potassium 3.6 (3.3-5.1) mmol/L Chloride 105 (96-108) mmol/L Carbon Dioxide 27 (22-29) mmol/L Anion Gap 12 (12-20) BUN 10 (9-16) mg/dL Creatinine 0.82 (0.5-1.4) mg/dL Estim Creat Clear Calc 92.6 Estimated GFR > 60 Random Glucose 87 (60-115) mg/dL Calcium 9.6 D (8.4-10.2) mg/dL Total Bilirubin 0.3 (0.0-1.0) mg/dL AST 20 (5-31) U/L ALT 19 (0-31) U/L Alkaline Phosphatase 72 (39-117) U/L Troponin I High Sens < 2.7 (<3.5-17.0) ng/L Total Protein 6.9 (6.5-8.0) g/dL Albumin 3.7 (3.5-5.0) g/dL Lipase 30 (8-78) U/L Influenza Type A (PCR) NEGATIVE (Negative) Influenza Type B (PCR) NEGATIVE (Negative) RSV RNA Qual (PCR) NEGATIVE (Negative) SARS-CoV-2 RNA (RT-PCR) NEGATIVE (Negative) Independent Interpretation I performed an independent interpretation of an: EKG and Plain X-Ray Interpretation: Rate 87 nsr normal intervals no sisng os ischemia Discharge Plan Discharge Clinical Impression: Chest pain Patient Disposition: Home, Self-Care Instructions: Chest Pain (DC) Additional Instructions: You were seen today for chest pain You had XR and labs which were all normal If you have any other concerns please return to the ER. Prescriptions: No Action amoxicillin 500 mg capsule 500 mg PO Q8H acetaminophen 500 mg tablet 500 mg PO Q6H PRN (Reason: mild pain) buspirone 10 mg tablet 10 mg PO TID ibuprofen 600 mg tablet 600 mg PO Q6H PRN (Reason: mild pain) mirtazapine 7.5 mg tablet 7.5 mg PO BEDTIME vitamin B complex-folic acid [B Complex 1 (with folic acid)] 0.4 mg tablet 1 tab PO DAILY Zepbound 7.5 mg/0.5 mL pen injector 7.5 mg subcut FR chlorhexidine gluconate 0.12 % mouthwash 15 ml PO BID baclofen 10 mg tablet 10 mg PO TID atorvastatin 40 mg Tablet 40 mg PO DAILY Qty: 1 0RF nitroglycerin [Nitrostat] 0.4 mg Tablet, Sublingual 0.4 mg sublingual Q5MX3 PRN (Reason: Chest Pain) Qty: 1 0RF enoxaparin 80 mg/0.8 mL Syringe 80 mg subcut Q12H Qty: 1 0RF duloxetine 60 mg capsule,delayed release(DR/EC) 60 mg PO DAILY metoprolol succinate 50 mg tablet extended release 24 hr 50 mg PO DAILY meclizine 25 mg tablet 50 mg PO BID PRN (Reason: Vertigo) losartan 100 mg tablet 100 mg PO DAILY hydralazine 25 mg tablet 25 mg PO TIDWM ferrous sulfate [FeroSul] 325 mg (65 mg iron) tablet 325 mg PO DAILY cholecalciferol (vitamin D3) [Vitamin D3] 25 mcg (1,000 unit) capsule 25 mcg PO DAILY multivitamin Tablet 1 tab PO DAILY amlodipine 10 mg tablet 10 mg PO DAILY duloxetine 20 mg capsule,delayed release(DR/EC) 20 mg PO DAILY aspirin [Adult Aspirin Regimen] 81 mg tablet,delayed release (DR/EC) 81 mg PO DAILY Qty: 90 3RF atorvastatin 20 mg tablet 20 mg PO DAILY Qty: 90 3RF Print Language: English
[2025-02-07 13:32] LABS: MANUAL DIFF FLAG NO
[2025-02-07 13:53] LABS: Basophils Absolute Auto 0.1 X10*3/uL (0.0-0.2); Basophils Percent Auto 0.9 % (0-2); Eosinophils Absolute Auto 0.1 X10*3/uL (0.0-0.4); Eosinophils Percent Auto 1.6 % (0-4); Hematocrit 42.4 % (37.0-47.0); Hemoglobin 13.6 g/dl (12.0-16.0); Imm Gran Abs Auto 0.02 X10*3/uL (0.00-0.03); Imm Gran Pct Auto 0.3 % (0.0-0.4); Lymphocytes Absolute Auto 1.7 X10*3/uL (1.2-4.9); Mean Corpuscular HGB Conc 32.1 g/dl (31.0-35.0); Mean Corpuscular Hemoglobin 26.3 pg (27.0-33.0); Mean Platelet Volume 9.5 fL (9.4-12.3); Monocytes Absolute Auto 0.6 X10*3/uL (0.1-1.2); Monocytes Percent Auto 8.5 % (2-11); Neutrophils Absolute Auto 4.3 x10*3/uL (2.0-8.3); Neutrophils Percent Auto 63.7 % (45-73); Platelet Count 271 X10*3/uL (160-400); Red Blood Count 5.17 X10*6/uL (4.20-5.50); Red Cell Distribution Width 14.2 % (11.0-16.0); White Blood Count 6.8 X10*3/uL (4.8-10.8)
[2025-02-07 14:04] LABS: Troponin-I High Sensitivity < 2.7 ng/L (<3.5-17.0)
[2025-02-07 14:05] LABS: Alanine Aminotransferase 19 U/L (0-31); Albumin Level 3.7 g/dL (3.5-5.0); Anion Gap 12 (12-20); Aspartate Amino Transferase 20 U/L (5-31); Bilirubin Total 0.3 mg/dL (0.0-1.0); Blood Urea Nitrogen 10 mg/dL (9-16); Calcium 9.6 mg/dL (8.4-10.2); Carbon Dioxide 27 mmol/L (22-29); Chloride 105 mmol/L (96-108); Creatinine Clr Calc Pharmacy 92.6; Estimated Glomerular Filt Rate > 60; Glucose Random 87 mg/dL (60-115); Lipase 30 U/L (8-78); Potassium 3.6 mmol/L (3.3-5.1); Sodium 140 mmol/L (135-145); Total Protein 6.9 g/dL (6.5-8.0)
--- OUTSIDE RECORDS SUMMARY | 2025-02-07 14:05 | XMS_ITS ---
Author Organization [employer] Address [address] [place] [address] Care Team Providers Care Clerical Associate Name Role Phone Teena Castillo MD Primary Care Provide r CHW Complex Status:Outreach In Progress (Enrolling) Start date:01/26/2025 Enrollment reason:ADT Feed Overview ADT- Pt admitted to [facility] on 01/25/25. Please outreach for enrollment. Case Team Name Relationship Phone Evi Heart (Responsible Staff) [phone] Continued Care and Services Coordination
--- OUTSIDE RECORDS SUMMARY | 2025-02-07 14:05 | XMS_ITS | Clinical Summary ---
Author Organization [employer] Address [address] [facility] [address] [place] [address] Care Team Providers Care Communication Lecturer Name Role Phone Teena Castillo MD Primary [...] TIMES DAILY WITH FOOD 270 tablet 1 024 Active metoprolol succinate XL (Toprol-XL) 50 MG [...] EVERY DAY 90 tablet 1 025 Active acetaminophen (Tylenol) 500 MG tablet Take 1 tablet (500 mg) by mouth every 6 (six) hours if needed for mild pain for up to 20 doses. 20 tablet 025 Active ibuprofen 600 MG tablet Take 1 [...] (BMI) of 37.0 to 37.9 in adult ([facility]) Inject 0.5 mL (10 mg) under the skin 1 (one) time per week. INJECT ONE PEN (=10 MG) SUBCUTANEOUSLY ONCE A WEEK 2 mL 025 Active amoxicillin (Amoxil) 500 MG capsule Take 1 capsule (500 mg) by mouth every 8 (eight) hours for 7 days. 21 capsule 025 2024 Active Tirzepatide-Jem ght Management (Zepbound) 7.5 MG/0.5ML solutionIndicat ions:Class 2 severe obesity due to excess calories with serious comorbidity and body mass index (BMI) of 37.0 to 37.9 in adult ([facility]) Inject 7.5 mg under the skin 1 (one) time per week. 2 mL 025 2024 Discontinued amoxicillin (Amoxil) 500 MG capsule Take 1 capsule (500 mg) by mouth every 8 (eight) hours for 7 days. 21 capsule 025 2024 Active Problems Problem Noted Date Diagnosed Date [...] Encounters Date Type Department Care Team Description 02/07/2025 Orders Only [facility] External Provider, [facility] 02/01/2025 Orders Only GENERIC EXTERNAL DATA DEPARTMENT Provider, Generic External Data 02/01/2025 Patient Outreach [facility] [address] [place] [phone] Teena Castillo MD 01/31/2025 1:00 PM EDT Office Visit [facility] ADULT DENTAL [address] [place] [address] Sara Melchor 01/28/2025 Patient Outreach [facility] [address] [place] [address] Teena Castillo MD Care Coordination (CM/CHW outreach) 01/27/2025 Patient Outreach [address] [address] Teena Castillo MD 01/27/2025 Patient Outreach [address] [address] eTena Castillo MD Transition Of Care (Tcm) (HDF unscheduled) 01/27/2025 Patient Outreach [address] [address] Teena Castillo MD 01/27/2025 Patient Outreach [address] [address] Teena Castillo MD 01/26/2025 Patient Outreach [address] [address] Teena Castillo MD 01/26/2025 Patient Outreach [address] [address] Teena Castillo MD 01/26/2025 Patient Outreach [address] [phone] Teena Castillo MD 01/26/2025 Patient Outreach [address] [address] Teena Castillo MD Care Coordination (CHW chart review) 01/26/2025 Patient Outreach [address] [address] Teena Castillo MD Care Management ([facility]- chart review) 01/26/2025 Patient Outreach [address] [address] Teena Castillo MD 01/25/2025 Orders Only GENERIC EXTERNAL DATA DEPARTMENT Provider, Generic External Data 01/21/[address] [address] Teena Castillo MD Class 2 severe obesity due to excess calories with serious comorbidity and body mass index (BMI) of 37.0 to 37.9 in adult ([facility]) 01/20/2025 11:30 AM EDT Office Visit [facility] ADULT DENTAL [address] [place] [address] Mitch Melchorluis a 01/14/2025 Orders Only GENERIC EXTERNAL DATA DEPARTMENT Provider, Generic External Data 12/24/[address] [facility] [place] [address] Teena Castillo MD TELEPHONE CALL 12/22/[address] [address] Teena Castillo MD Prior Auth Prescription; Prior Authorization ( [place] Request: Zepbound) 12/21/[address] [address] Teena Castillo MD Call Back Request 12/20/2024 Orders Only [address] [address] Teena Castillo MD Morbid obesity ([facility]) (Primary Dx); Class 2 severe obesity due to excess calories with serious comorbidity and body mass index (BMI) of 37.0 to 37.9 in adult ([facility]) 12/20/[address] [facility] [place] [address] Teena Castillo MD Medication Question 12/10/2024 Population Health Risk Score [facility] () Department [address] [place] [phone] Provider, Population Health Generic 11/23/2024 3:15 PM EST Office Visit [address] [address] Teena Castillo MD Dyspnea on exertion (Primary Dx); Essential hypertension 11/23/2024 Travel 11/18/[address] [address] Teena Castillo MD Chart Prep 11/10/[address] [phone] Teena Castillo MD Vitamin deficiency, unspecified; Primary hypertension; Vitamin deficiency from Last 3 Months Immunizations Name Administration [...] is your housing situation today? I have arnulfojeremy betts 06/15/[address] you [...] the past 12 months, has t he [employer], gas, oil or water [facility] threatened to shut off services in your [...] Sign Reading Time Taken Comments Blood Pressure 120/80 01/31/2025 1:11 PM EDT Pulse 85 11/23/2024 3:07 PM EST [...] Care Team (Late st Contact Info) Description 02/09/2025 9:00 AM EDT Office Visit [facility] ADULT DENTAL [address] [place] [address] Arline Melchoret [address] [place] [address] 02/11/2025 2:15 PM EDT Office Visit [facility] [address] [place] [phone] Sean Lyles MD [address] [place] [address] 02/17/2025 1:00 PM EDT Office Visit [facility] [address] [place] [phone] Teena Castillo MD [address] [place] [address] Health Maintenance Due Date Last Done Comments Dental Oral Exam 1980 Dental Prophylaxis 1980 Dental X-Ray: Full Mouth 1980 HIV Screening 1980 Family Planning (PISQ) 1996 Hepatitis B Vaccines (1 of 3 - 19+ 3-dose series) 2000 DTaP/Tdap/Td Vaccines (2 - Td or Tdap) 08/14/2021 08/14/2011 COVID-19 Vaccine (3 - season) 2024 04/12/2021, 03/22/2021 Influenza Vaccine (#1) 2024 9, 07/07/2014, 10/26/2013, Additional history exists Alcohol/Substance Use Screening 06/15/2025 06/15/2024 SDOH Screening 06/15/2025 06/15/2024 Mammogram 09/01/2025 09/01/2024, 07/25/2023 Depression Screening 11/23/2025 11/23/2024, 11/23/19 Dental X-Ray: Bitewings 01/21/2026 01/20/2025 Tobacco Screening 01/31/2026 01/31/2025 Pap Smear 05/01/2026 05/01/2023 Cervical Cancer Screening [...] Procedure Name Priority Date/Time Associated Diagnosis Comments CBC WITH AUTO DIFFERENTIAL Routine 02/07/2025 1:28 PM EDT XR CHEST 2 VIEWS Routine 02/07/2025 12:3 5 PM EDT POTASSIUM Routine 02/01/2025 10:29 AM EDT NO CHARGE VISIT Routine 01/31/2025 1:00 PM EDT HIGH SENSITIVITY TROPONIN I Routine 01/25/2025 10:20 [...] Recently Relevant to Health Maintenance Results * (ABNORMAL) CBC auto differential (02/07/2025 1:28 PM EDT) Only the most recent of3 resultswithin the time period is included. White Blood Count 6.8 4.8 - 10.8 X10*3/uL [facility] Red Blood Count 5.17 4.20 - 5.50 X10*6/uL [facility] Hemoglobin 13.6 12.0 - 16.0 g/dl [facility] Hematocrit 42.4 37.0 - 47.0 % [facility] Mean Corpuscular Volume 82.0 80.0 - 98.0 fL [facility] Mean Corpuscular Hemoglobin 26.3(L) 27.0 - 33.0 pg [facility] Mean Corpuscular HGB Conc 32.1 31.0 - 35.0 g/dl [facility] Red Cell Distribution Width 14.2 11.0 - 16.0 % [facility] Platelet Count 271 160 - 400 X10*3/uL [facility] Mean Platelet Volume 9.5 9.4 - 12.3 fL [facility] Neutrophils Percent Auto 63.7 45 - 73 % [facility] Imm Gran Pct Auto 0.3 0.0 - 0.4 % [facility] Lymphocytes Percent Auto 25.0 20 - 40 % [facility] Monocytes Percent Auto 8.5 2 - 11 % [facility] Eosinophils Percent Auto 1.6 0 - 4 % [facility] Basophils Percent Auto 0.9 0 - 2 % [facility] NRBC Pct Auto 0.0 0.0 - 0.2 /100WBC [facility] Neutrophils Absolute Auto 4.3 2.0 - 8.3 x10*3/uL [facility] Imm Gran Abs Auto 0.02 0.00 - 0.03 X10*3/uL [facility] Lymphocytes Absolute Auto 1.7 1.2 - 4.9 X10*3/uL [facility] Monocytes Absolute Auto 0.6 0.1 - 1.2 X10*3/uL [facility] Eosinophils Absolute Auto 0.1 0.0 - 0.4 X10*3/uL [facility] Basophils Absolute Auto 0.1 0.0 - 0.2 X10*3/uL [facility] NRBC Abs Auto 0.000 0.0 - 0.012 X10*3/uL [facility] 02/07/2025 1:28 PM EDT 02/07/2025 1:30 PM EDT us Generic External Data Provider LAB BLOOD ORDERAB LES Final Result Performing Organization Address City/State/[facility] Co de Phone Number [facility] [address] [place] [address] [phone] * XR Chest 2 Views (02/07/2025 12:35 PM EDT) Anatomical Region Laterality Modality Chest Radiographic Anyi ging 02/07/2025 12:3 5 PM EDT Narrative 02/07/2025 12:57 PM EDT ? [facility] ?[address] ?[place] [address] ?XRay Report ? Signed ? Patient: Garcia,Dara ?MR#: [id number] ?? 47 ? : 1980 ?Acct:[id number] ? Age/Sex: 44 / F ?ADM Date: 05/12/25 ? Loc: HO.ED ? Attending Dr: ? Ordering Physician: Glenn Moise ?? Date of Service: 02/07/25 ?? Procedure(s): XR chest 2V ?? Accession Number(s): [id number] ? cc: Teena Castillo MD; Glenn Moise ? EXAMINATION: ?? XR CHEST ? CLINICAL INFORMATION: ?? pain ? COMPARISON: ?? 12/13/2021. ? TECHNIQUE: ?? 2 views of the chest were obtained. ? FINDINGS: ?? The cardiac, hilar, and mediastinal contours are normal. ? The lungs are clear bilaterally. There is no pneumothorax or pleural ?? effusion. ? There is no focal osseous or soft tissue abnormality. Surgical clips in ?? the epigastric region. ? XR/XR chest 2V ?? IMPRESSION: ?? No active pulmonary disease. ? Electronically signed by: ??Ray Tamez MD ??02/07/2025 12:54 PM EDT RP ? Dictated By: ?Ray Tamez MD ? Signed By: ?<Electronically signed by Ray Tamez MD in OV> ?02/07/25 1254 ? DD/ 1235 ? TD/TT: 02/07/25 1250 ? Medical Receptionist Medical Assistant: ? Procedure Note Héctorefraintoshabrisa, Image - 02/07/2025 [place] [address] XRay Report Signed Patient: Angi Garcia#: [id number] 47 : 1980Acct:[id number] Age/Sex: 44 / FADM Date: 02/07/25 Loc: HO.ED Attending Dr: Ordering Physician: Glenn Moise Date of Service: 02/07/25 Procedure(s): XR chest 2V Accession Number(s): [id number] cc: Teena Castillo MD; Glenn Moise EXAMINATION: XR CHEST CLINICAL INFORMATION: pain COMPARISON: 12/13/2021. TECHNIQUE: 2 views of the chest were obtained. FINDINGS: The cardiac, hilar, and mediastinal contours are normal. The lungs are clear bilaterally. There is no pneumothorax or pleural effusion. There is no focal osseous or soft tissue abnormality. Surgical clips in the epigastric region. XR/XR chest 2V IMPRESSION: No active pulmonary disease. Electronically signed by: Ray Tamez MD 02/07/2025 12:54 PM EDT Dictated By: Ray Tamez MD Signed By: <Electronically signed by Ray Tamez MD in OV> 02/07/25 1254 DD/ 1235 TD/TT: 02/07/25 1250 Medical Receptionist Medical Assistant: [facility] External Provider IMG XR PROCEDURES Final Result * Potassium (02/01/2025 10:29 AM EDT) Pathologist [facility] Potassium 3.4 3.3 - 5.1 mmol/L [facility] 02/01/2025 10:2 9 AM EDT 02/01/2025 10:29 AM EDT Generic External Data Provider LAB BLOOD ORDERAB LES Final Result Performing Organization Address [facility] Co de Phone Number [facility] [address] [place] [phone] * High Sensitivity Troponin I (01/25/2025 10:20 AM EDT) TROPONIN I HIGH SENSITIVITY <2.7 <3.5 - 17.0 ng/L [facility] Comment:The Csaas high sens itivity Troponin-I results should beused in conjunction with other diagnostic information suchas ECG, clinical observations and information, and patientsymptoms to aid in the diagnosis of ID. 01/25/2025 10:2 0 AM EDT 01/25/2025 10:23 AM EDT Generic External Data Provider LAB BLOOD ORDERAB LES Final Result Performing Organization Address [facility] Co de Phone Number [facility] [address] [place] [address] [phone] * (ABNORMAL) Comprehensive Metabolic Panel (01/25/2025 10:20 AM EDT) Only the most recent of2 resultswithin the time period is included. Sodium 140 135 - 145 mmol/L [facility] Potassium 3.5 3.3 - 5.1 mmol/L [facility] Chloride 109(H) 96 - 108 mmol/L [facility] Carbon Dioxide 26 22 - 29 mmol/L [facility] Anion Gap 9(L) 12 - 20 [facility] Urea Nitrogen (BUN) 7(L) 9 - 16 mg/dL [facility] Creatinine, Serum 0.80 0.5 - 1.4 mg/dL [facility] Creatinine Clr Calc Pharmacy 89.8 [facility] Comment:Provided height and weight: 160.02 cm,78.3 kg.eGFR (calculated from the MDRD study equation) and eCrCl(calculated from the Cockcroft-Gault equation) are based ondifferent parameters and may not yield comparable results.If eCrCl result is absurd, please check patient'sheight/weight. Estimated Glomerular Filt Rate >60 [facility] Comment:Chronic Kidney Disea se: Estimated GFR < 60 mL/min/1.16n8Rakveg Kidney Disease: Estimated GFR < 15 mL/min/1.73m2 Glucose 103 60 - 115 mg/dL [facility] Calcium 8.9 8.4 - 10.2 mg/dL [facility] Bilirubin, Total 0.4 0.0 - 1.0 mg/dL [facility] Aspartate Amino Transferase 24 5 - 31 U/L [facility] Alanine Aminotransferase 16 0 - 31 U/L [facility] Total Protein 7.0 6.5 - 8.0 g/dL [facility] Albumin Level 3.6 3.5 - 5.0 g/dL [facility] Alkaline Phosphatase 72 39 - 117 U/L [facility] 01/25/2025 10:2 0 AM EDT 01/25/2025 10:23 AM EDT Generic External Data Provider LAB BLOOD ORDERAB LES Final Result Performing Organization Address [facility] Co de Phone Number [facility] [address] [place] [phone] * Prothrombin Time-INR (01/14/2025 10:29 AM EDT) Pathologist [facility] Prothrombin Time 12.1 10.9 - 12.4 SEC [facility] INTERNATIONAL NORM RATIO 1.0 0.9 - 1.1 [facility] Comment:INTERNATIONAL NORMAL IZED RATIO (INR) [...] 9 AM EDT 01/14/2025 10:29 AM EDT Generic External Data Provider LAB BLOOD ORDERAB LES Final Result Performing Organization Address [facility] de Phone Number [facility] [address] [place] [phone] * (ABNORMAL) CBC (01/14/2025 10:29 AM EDT) White Blood Count 6.2 4.8 - 10.8 X10*3/uL [facility] Red Blood Count 5.05 4.20 - 5.50 X10*6/uL [facility] Hemoglobin 13.3 12.0 - 16.0 g/dl [facility] Hematocrit 41.3 37.0 - 47.0 % [facility] Mean Corpuscular Volume 81.8 80.0 - 98.0 fL [facility] Mean Corpuscular Hemoglobin 26.3(L) 27.0 - 33.0 pg [facility] Mean Corpuscular HGB Conc 32.2 31.0 - 35.0 g/dl [facility] Red Cell Distribution Width 13.5 11.0 - 16.0 % [facility] Platelet Count 241 160 - 400 X10*3/uL [facility] Mean Platelet Volume 9.9 9.4 - 12.3 fL [facility] NRBC Pct Auto 0.0 0.0 - 0.2 /100WBC [facility] NRBC Abs Auto 0.000 0.0 - 0.012 X10*3/uL [facility] 01/14/2025 10:2 9 AM EDT 01/14/2025 10:29 AM EDT us Generic External Data Provider LAB BLOOD ORDERAB LES Final Result [facility] [address] [place] [phone] * (ABNORMAL) Basic Metabolic Panel (01/14/2025 10:29 AM EDT) Sodium 140 135 - 145 mmol/L [facility] Potassium 3.2(L) 3.3 - 5.1 mmol/L [facility] Chloride 106 96 - 108 mmol/L [facility] Carbon Dioxide 28 22 - 29 mmol/L [facility] Anion Gap 9(L) 12 - 20 [facility] Urea Nitrogen (BUN) 11 9 - 16 mg/dL [facility] Creatinine, Serum 0.79 0.5 - 1.4 mg/dL [facility] Estimated Glomerular Filt Rate >60 [facility] Comment:Chronic Kidney Disea se: Estimated GFR < 60 mL/min/1.88h3Loveuv Kidney Disease: Estimated GFR < 15 mL/min/1.73m2 Glucose 81 60 - 115 mg/dL [facility] Calcium 9.1 8.4 - 10.2 mg/dL [facility] 01/14/2025 10:2 9 AM EDT 01/14/2025 10:29 AM EDT us Generic External Data Provider LAB BLOOD ORDERAB LES Final Result Performing Organization Address City/[facility]/ZIP Co de Phone Number [facility] [address] [place] [phone] * Vitamin D, 25-Hydroxy, Total, Immunoassay (12/22/2024 8:37 AM EDT) [facility] Vitamin D 25-OH Total 44.0 >30 ng/mL [facility] Comment: Health Based Reference Values*< 20 ??ng/mL ??Itnantefl24-29 ng/mL ??Insufficient> 30 ??ng/mL ??Sufficient*Rosie MIRANDA. N [...] BLOOD ORDERABLES Final Result Performing Organization Address [facility]/ZIP Co de Phone Number [facility] [address] [place] [phone] * Vitamin B12/Folate, Serum Panel (12/22/2024 8:37 AM EDT) Vitamin B12 833 200 - 900 pg/mL [facility] Comment:NORMAL 200-900 PG/ML INDETERMINATE 160-199 PG/ML DEFICIENT < 160 PG/ML Folate 13.8 > or = 4.0 ng/mL [facility] Comment:Reference Values:> o r = [...] BLOOD ORDERABLES Final Result Performing Organization Address City/[facility]/ZIP Co de Phone Number [facility] [address] [place] [phone] * TSH W/Reflex to FT4 (12/22/2024 8:37 AM EDT) Pathologist [facility] TSH reflex Free T4 1.65 0.32 - 4.0 uIU/mL [facility] Blood Venous blood specimen / Unknown 12/22/2024 8:37 AM EDT 12/22/2024 11:05 AM EDT us Teena Otoole MD LAB BLOOD ORDERABLES Final Result Performing Organization Address City/[facility]/ZIP Co de Phone Number [facility] [address] [place] [phone] * Lipid Panel, Standard (12/22/2024 8:37 AM EDT) Triglycerides 61 <150 mg/dL [facility] Comment:Desirable Triglyceri de: less than 150 mg/dLBorderline High Triglyceride 150-199 mg/dLHigh Triglyceride: 200-499 mg/dLVery High Triglyceride: greater than or equal to 5OO mg/dL Cholesterol 155 <200 mg/dL [facility] Comment:Desirable Cholestero l: less than 200 mg/dLBorderline High Cholesterol: 200-239 mg/dLHigh Cholesterol: greater than 239 mg/dL LDL Cholesterol Calculated 89 <100 mg/dL [facility] Comment:Desirable LDL: less than 100 mg/dLNear Optimal/Above Optimal LDL: 110- 129 mg/dLBorderline High LDL: 130-159 mg/dLHigh LDL: 160-189 mg/dLVery High LDL: greater than or equal to 190 mg/dL HDL Cholesterol 54 >40 mg/dL [facility] Comment:Desirable HDL: great er than 40 mg/dL Note: This HDL assay may give artificially low results in patients with liver disease. Blood Venous blood specimen / Unknown 12/22/2024 8:37 AM EDT 12/22/2024 11:05 AM EDT Teena Otoole MD LAB BLOOD ORDERABLES Final Result [facility] [address] [place] [phone] * BI Mammogram Screening Tomosynthesis Bilateral (09/01/2024 11:55 AM EST) Anatomical Region Laterality Modality Breast Bilateral Mammography 09/01/2024 11:5 5 AM EST Narrative 09/07/2024 3:10 PM EST ? [facility] [place] ? [address] ?[place] [address] ? Mammography Report ? Signed ? Patient: Garcia,Dara ?MR#: [id number] ?? 47 ? : 1980 ?Acct:[id number] ? Age/Sex: 44 / F ?ADM Date: 12/04/24 ? Loc: HO.MAMMO ? Attending Dr: Teena Otoole MD ? Ordering Physician: Teena Castillo MD ?Results: ?? 1Negative ? Date of Service: 09/01/24 ?Follow Up: 1 Year From Orig ?? inal Mammogram ? Procedure(s): MM tomosynthesis screening BI ?? Accession Number(s): [id number] ? cc: Teena Castillo MD ? EXAMINATION: [...] DD/ 1155 ? TD/TT: 09/01/24 1205 ? Medical Receptionist Medical Assistant: ? Procedure Note Donotuseinterpreter, Image - [facility]07[facility] [address] [place] [address] Mammography Report Signed Patient: Angi Garcia#: [id number] 47 : 1980Acct:[id number] Age/Sex: 44 / FADM Date: 09/01/24 Loc: HO.MAMMO Attending Dr: Teena Otoole MD Ordering Physician: Teena Castillo MDResults: 1Negative Date of Service: 09/01/24Follow Up: 1 Year From Orig inal Mammogram Procedure(s): MM tomosynthesis screening BI Accession Number(s): [id number] cc: Teena Castillo MD EXAMINATION: MM SCREENING [...] by: Liudmila Erickson DO 09/07/2024 03:07 PM [facility] Dictated By: Liudmila Erickson DO Signed By: <Electronically signed by Liudmila Erickson DO in OV> 09/07/24 1507 DD/ 1155 TD/TT: 09/01/24 1205 Medical Receptionist Medical Assistant: Teena Otoole MD IMG BI PROCEDURES Fin al Result * Hepatitis C Antibody with Reflex to HCV, RNA, Quantitative, Real-Time PCR (02/11/2024 6:14 AM EDT) Hepatitis C Antibody Nonreactive Nonreactive [facility] Comment:Antibodies to HCV no t detected; does not exclude early acuteHCV infection. Blood Venous blood specimen / Unknown 02/11/2024 6:14 AM EDT 02/11/2024 6:14 AM EDT Teena Otoole MD LAB BLOOD ORDERABLES Final Result [facility] [address] [place] [phone] * HPV mRNA E6/E7 w/Reflex to HPV Genotypes 16, 18/45 (05/01/2023 12:00 AM EDT) HPV nRNA E6/E7 Not Detected Not Detected [facility] Comment:Methodology: Transcr iption-Mediated AmplificationThis assay detects E6/E7 viral messenger RNA (mRNA) from 14high-risk HPV types (16,18,31,33,35,39,45,51,52,56,58,59,66,68).Cervical sources are required for HPV testing.If a vaginal source from a patient who has had atotal hysterectomy with removal of cervix wassubmitted, please contact the testing laboratoryfor alternative testing options.For additional information, please refer tohttp://education.Certona/faq/XIF291d2(This link if provided for information/educational purposes only.)THIS TEST WAS PERFORMED AT:[facility] [place] [phone] JUÁREZ MD HPV mRNA E6/E7 TNP [facility] HPV 16 RNA [facility] HPV 18/45 RNA TNP [facility] 05/01/2023 05/02/2023 10: 15 AM EDT us Rachel Gaytan CNM LAB CYTOLOGY ORDERABLES F inal Result [facility] [address] [place] [phone] * Pap Smear (05/01/2023 12:00 AM EDT) 05/01/2023 05/02/2023 10: 15 AM EDT Narrative [facility] - 05/24/2023 4:11 PM EDT ----- ------- Name: Dara Garcia ? Age/Sex: 42/F ? : 1980 Unit#: [id number] ?? Attend Dr: RACHEL GAYTAN CNM ?Re05/01/23 ?Status: DEP REF ? Location: HO.HHCLNP ? Disch: ? ----- ------- SPEC : [id number] ?RECD: 05/02/23 ? STATUS: ??SOUT ? REQ NUM: [id number] ? SUDARSHAN: 05/01/23-0000 ? SUBM DR: RACHEL GAYTAN CNLela ? ENTERED: ??05/05/23 ?SP TYPE: Pap Smr ?OTHR : ? ORDERED: ??Pap Smear ? Interpretation ?? Satisfactory for evaluation. ?? Negative for intraepithelial lesion or malignancy. ? HPV mRNA E6/E7: ?NOT DETECTED ? This assay detects E6/E7 viral messenger RNA (mRNA) from 14 high-risk HPV types (16, 18, ?? 31, 33, 35, 39, 45, 51, 52, 56, 58, 59, 66, 68) ? HPV testing performed by [employer], [place], [place]. ??See reference laboratory ?? portion of the EMR for entire report. ?Clinical Information LMP:Unknown date Previous PAP test:Unknown date/findings ? Material Received ?? ThinPrep-Cervical ----- ------- Signed (signature on file) Meseret Raygoza 05/24/23 1611 ? ----- ------- ? END OF REPORT ? us Rachel Gaytan [facility] CYTOLOGY ORDERABLES F inal Result [facility] [address] [place], [place] [phone] from Last 3 Months or Most Recently Relevant to Health Maintenance Insurance [facility] [place] ST[place] ADULT Care Teams Communication Lecturer Relationship Specialty Start Date End Date Teena Castillo MD [address] [place] [phone] PCP - General Family Medicine 03/18/19
--- OUTSIDE RECORDS SUMMARY | 2025-02-07 14:05 | XMS_ITS | Encounter Summary ---
Author Organization [employer] Address [address] [facility] [address] 7t [place] [address] Care Team Providers Care Commercial Coordinator Name Role Phone Teena Castillo MD Primary Care Provide r Reason for Visit * Reason Comments Med Refill Encounter Details Date Type Department Care Team ([facility] st Contact Info) Description 09/28/2024 Refill [facility] MEDICINE [address] [place], [place] [phone] Teena Castillo MD [address] [place] [address] Class 2 severe obesity due to excess [...] Description 02/09/2025 9:00 AM EDT Office Visit [facility] CHC ADULT DENTAL [address] [place], [place] [phone] MelchorGeorge legerapril 505 [place] [address] 02/11/2025 2:15 PM EDT Office Visit [facility] MEDICINE [address] [place] [phone] Sean Lyles MD [address] [place] [address] 02/17/2025 1:00 PM EDT Office Visit [facility] MEDICINE [address] [place] [address] [phone] Teena Castillo MD [address] [place] [address] [phone] documented as of this encounter Visit Diagnoses Diagnosis Class 2 severe obesity due to excess calories with serious comorbidity and body mass index (BMI) of 37.0 to 37.9 in adult (CMS/HCC) documented in this encounter Additional Health Concerns Assessment Noted Time PHQ-9 Depression Total Score: 10 024 2:46 PM EDT documented as of this encounter Care Teams Commercial Coordinator Relationship Specialty Start Date End Date Teena Castillo MD [address] [place] [address] PCP - General Family Medicine 03/18/19 documented as of this encounter
--- OUTSIDE RECORDS SUMMARY | 2025-02-07 14:05 | XMS_ITS | Encounter Summary ---
Author Organization [employer] Address 75 [facility] 7t [place] [address] Care Team Providers Care Loan Review Officer Name Role Phone Teena Castillo MD Primary Care Provide r Encounter Details Date Type Department Care Team (Late st Contact Info) Description 02/06/2023 Orders Only [facility] MED [facility] PED[facility] [address] [place] [address] Melly Mccloud LPN Social History Tobacco Use [...] Description 02/09/2025 9:00 AM EDT Office Visit [facility] CHC ADULT DENTAL [address] [place] [address] Sara Melchor 505 [place] [address] 02/11/2025 2:15 PM EDT Office Visit [facility] MEDICINE [address] [place] [address] Sean Lyles MD [address] [place], [place] [phone] 02/17/2025 1:00 PM EDT Office Visit [facility] MEDICINE [address] [place] [address] Teena Castillo MD [address] [place] [address] documented as of this encounter Visit Diagnoses Not on filedocumented in this encounter Care Teams Loan Review Officer Relationship Specialty Start Date End Date Teena Castillo MD [address] [place] [phone] PCP - General Family Medicine 03/18/19 documented as of this encounter
--- OUTSIDE RECORDS SUMMARY | 2025-02-07 14:05 | XMS_ITS | Clinical Summary ---
Author Organization [facility] ity Address [address] [place] [address] Care Team Providers Care Mechanical Product Engineer Name Role Phone Teena Castillo MD [...] age to complete this topic Care Teams Mechanical Product Engineer Relationship Specialty Start Date End Date Teena Castillo MD [address] [place] [phone] PCP - General Internal Medicine 12/31/21
--- OUTSIDE RECORDS SUMMARY | 2025-02-07 14:05 | XMS_ITS | Encounter Summary ---
Author Organization [employer] Address [address] [facility] [address] 7t [place] [address] Care Team Providers Care Survey Supervisor Name Role Phone Teena Castillo MD Primary Care Provide r Encounter Details Date Type Department Care Team (Late st Contact Info) Description 02/07/2025 Orders Only [facility] External Provider, [facility] Social History Tobacco Use Types Packs/Day Years [...] Description 02/09/2025 9:00 AM EDT Office Visit [facility] CHC ADULT DENTAL [address] [place], [place] [phone] Mitch Melchorpreet [address] [place], [place] [phone] 02/11/2025 2:15 PM EDT Office Visit [facility] MEDICINE [address] [place] [address] Sean Lyles MD [address] [place] [address] 02/17/2025 1:00 PM EDT Office Visit [facility] MEDICINE [address] [place] [address] Teena Castillo MD [address] [place] [address] [phone] documented as of this encounter Procedures Procedure Name Priority Date/Time Associated Diagnosis Comments CBC WITH AUTO DIFFERENTIAL Routine 02/07/2025 1:28 PM EDT XR CHEST 2 VIEWS Routine 02/07/2025 12:3 5 PM EDT documented in this encounter Results * (ABNORMAL) CBC auto differential (02/07/2025 1:28 PM EDT) [facility] White Blood Count 6.8 4.8 - 10.8 X10*3/uL [facility] Red Blood Count 5.17 4.20 - 5.50 X10*6/uL [facility] Hemoglobin 13.6 12.0 - 16.0 g/dl [facility] Hematocrit 42.4 37.0 - 47.0 % [facility] Mean Corpuscular Volume 82.0 80.0 - 98.0 fL [facility] Mean Corpuscular Hemoglobin 26.3(L) 27.0 - 33.0 pg [facility] Mean Corpuscular HGB Conc 32.1 31.0 - 35.0 g/dl [facility] Red Cell Distribution Width 14.2 11.0 - 16.0 % [facility] Platelet Count 271 160 - 400 X10*3/uL [facility] Mean Platelet Volume 9.5 9.4 - 12.3 fL [facility] Neutrophils Percent Auto 63.7 45 - 73 % [facility] Imm Gran Pct Auto 0.3 0.0 - 0.4 % [facility] Lymphocytes Percent Auto 25.0 20 - 40 % [facility] Monocytes Percent Auto 8.5 2 - 11 % [facility] Eosinophils Percent Auto 1.6 0 - 4 % [facility] Basophils Percent Auto 0.9 0 - 2 % [facility] NRBC Pct Auto 0.0 0.0 - 0.2 /100WBC [facility] Neutrophils Absolute Auto 4.3 2.0 - 8.3 x10*3/uL [facility] Imm Gran Abs Auto 0.02 0.00 - 0.03 X10*3/uL [facility] Lymphocytes Absolute Auto 1.7 1.2 - 4.9 X10*3/uL [facility] Monocytes Absolute Auto 0.6 0.1 - 1.2 X10*3/uL [facility] Eosinophils Absolute Auto 0.1 0.0 - 0.4 X10*3/uL [facility] Basophils Absolute Auto 0.1 0.0 - 0.2 X10*3/uL [facility] NRBC Abs Auto 0.000 0.0 - 0.012 X10*3/uL [facility] 02/07/2025 1:28 PM EDT 02/07/2025 1:30 PM EDT us Generic External Data Provider LAB BLOOD ORDERAB LES Final Result [facility] [address] [place] [address] [phone] * XR Chest 2 Views (02/07/2025 12:35 PM EDT) Anatomical Region Laterality Modality Chest Radiographic Anyi ging 02/07/2025 12:3 5 PM EDT Narrative 02/07/2025 12:57 PM EDT ? [facility] ?[address] ?[place] [address] ?XRay Report ? Signed ? Patient: Garcia,Dara ?MR#: [id number] ?? 47 ? : 1980 ?Acct:[id number] ? Age/Sex: 44 / F ?ADM Date: 02/07/25 ? Loc: HO.ED ? Attending Dr: ? Ordering Physician: Glenn Moise ?? Date of Service: 02/07/25 ?? Procedure(s): XR chest 2V ?? Accession Number(s): [id number] ? cc: Teena Castillo MD; Glenn Moise [...] DD/ 1235 ? TD/TT: 02/07/25 1250 ? Crnp: ? Procedure Note Donotvenuster, Image - 02/07/[address] [address] XRay Report Signed Patient: Angi Garcia#: [id number] 47 : 1980Acct:[id number] Age/Sex: 44 / FADM Date: 02/07/25 Loc: HO.ED Attending Dr: Ordering Physician: Glenn Moise Date of Service: 02/07/25 Procedure(s): XR chest 2V Accession Number(s): [id number] cc: Teena Castillo MD; Glenn Moise EXAMINATION: [...] 02/07/25 1254 DD/ 1235 TD/TT: 02/07/25 1250 Crnp: [facility] External Provider IMG XR PROCEDURES Final Result documented in this encounter Visit Diagnoses Not on filedocumented in this encounter Additional Health Concerns Assessment Noted Time PHQ-9 Depression Total Score: 17 11/23/2 025 3:24 PM EST documented as of this encounter Care Teams Survey Supervisor Relationship Specialty Start Date End Date Teena Castillo MD [address] [place] [address] PCP - General Family Medicine 03/18/19 documented as of this encounter
--- OUTSIDE RECORDS SUMMARY | 2025-02-07 14:05 | XMS_ITS | Encounter Summary ---
Author Organization [employer] Address [address] [facility] [address] 7t [place] [address] Care Team Providers Care Carbon Paper Coating Supervisor Name Role Phone Teena Castillo MD Primary Care Provide r Reason for Visit * Reason Comments Med Refill Encounter Details Date Type Department Care Team ([facility] st Contact Info) Description 08/11/2023 Refill [facility] CHC MED & PEDS [address] [place], [place] [phone] Nahid Mak MD [address] [place] [address] Essential hypertension Social History Tobacco Use Types [...] Description 02/09/2025 9:00 AM EDT Office Visit [facility] CHC ADULT DENTAL [address] [place] [address] George Melchoranpreet [address] [place] [address] 02/11/2025 2:15 PM EDT Office Visit [facility] MEDICINE [address] [place] [address] Sean Lyles MD [address] [place] [address] 02/17/2025 1:00 PM EDT Office Visit [facility] MEDICINE [address] [place] [address] Teena Castillo MD [address] [place] [address] documented as of this encounter Visit Diagnoses Diagnosis Essential hypertension Unspecified essential hypertension documented in this encounter Additional Health Concerns Assessment Noted Time PHQ-9 Depression Total Score: 0 04/04/20 23 2:14 PM EDT documented as of this encounter Care Teams Carbon Paper Coating Supervisor Relationship Specialty Start Date End Date eTena Castillo MD [address] [place] [phone] PCP - General Family Medicine 03/18/19 documented as of this encounter
--- OUTSIDE RECORDS SUMMARY | 2025-02-07 14:05 | XMS_ITS ---
Author Organization [employer] Address [address] [facility] [address]t [place] [address] Care Team Providers Care Developer Trading Systems Name Role Phone Teena Castillo MD Primary Care Provide r CM Complex Status:Outreach In Progress (Enrolling) Start date:01/26/2025 Enrollment reason:ADT Feed Overview ADT- Pt admitted to [facility] on 01/25/25. Case Team Name Relationship Phone Anton Cárdenas RN Registered Nurse(Responsible S taff) [phone] Continued Care and Services Coordination
[2025-02-07 14:08] VITALS: PULSE 83; RESP 18
[2025-02-07 14:11] VITALS: BP 99/66; PULSE 85; RESP 18; O2SAT 97
[2025-02-07 14:11] LABS: Influenza A PCR NEGATIVE (Negative); Influenza B PCR NEGATIVE (Negative); Resp Syncy Virus RNA Qual PCR NEGATIVE (Negative); SARS COV2 PCR INHOUSE NEGATIVE (Negative)
[2025-02-07 14:13] LABS: Alkaline Phosphatase 72 U/L (39-117)
--- NOTE | 2025-02-07 14:32 | PC.NURSE ---
Per MD, pt. does not need a second troponin lab draw. Pt. may be dc.
[2025-02-07 14:39] VITALS: BP 109/62; PULSE 83; RESP 18; TEMP 36.8; O2SAT 98
== END 2025-02-07 14:42 | disposition home or self-care (01) ==
PROVIDERS: Physician Assistant; Emergency Provider Student in an Organized Health Care Education/Training Program; PCP Internal Medicine
DX: R07.9 Chest pain, unspecified (principal); Z03.818 Encounter for observation for suspected exposure to other biological agents ruled out; I10 Essential (primary) hypertension; Z98.84 Bariatric surgery status; Z79.82 Long term (current) use of aspirin; Z79.02 Long term (current) use of antithrombotics/antiplatelets; Z79.01 Long term (current) use of anticoagulants
CPT/HCPCS: 0241U; 36415; 71046; 80053; 83690; 84484; 85025; 93005; 99283; 99285

== ENCOUNTER → 2025-02-07 12:04 | Outpatient (BNV) | payer MEDICAID, SELFPAY | PROVIDERS: PCP Internal Medicine; Visit Provider Internal Medicine Cardiovascular Disease | DX: R94.31 Abnormal electrocardiogram [ECG] [EKG] (principal) | CPT/HCPCS: 93010 ==

== ENCOUNTER → 2025-02-07 12:35 | Outpatient (BNV) | payer MEDICAID, SELFPAY | PROVIDERS: PCP Internal Medicine; Visit Provider Radiology Diagnostic Radiology | DX: R07.9 Chest pain, unspecified (principal) | CPT/HCPCS: 71046 ==

== ENCOUNTER 2025-02-11 14:16 | Outpatient (REF) | payer MEDICAID, SELFPAY ==
--- OUTSIDE RECORDS SUMMARY | 2025-02-11 14:19 | XMS_ITS ---
Author Organization [employer] Address [address] [facility] [address] 7t [place] [address] Care Team Providers Care Cutter Hot Knife Name Role Phone Teena Castillo MD Primary Care Provide r CHW Complex Status:Outreach In Progress (Enrolling) Start date:01/26/2025 Enrollment reason:ADT Feed Overview ADT- Pt admitted to [facility] on 01/25/25. Please outreach for enrollment. Case Team Name Relationship Phone Evi Heart(Responsible Staff) [phone] Continued Care and Services Coordination
--- OUTSIDE RECORDS SUMMARY | 2025-02-11 14:19 | XMS_ITS | Encounter Summary ---
Author Organization [employer] Address [address] [facility] [address] 7t [place] [address] Care Team Providers Care Toll Bridge Attendant Name Role Phone Teena Castillo MD Primary Care Provide r Reason for Visit * Reason Comments Med Refill Encounter Details Date Type Department Care Team ([facility] st Contact Info) Description 09/28/2024 Refill [facility] MEDICINE [address] [place], [place] [phone] Teena Castillo MD [address] [place] [address] Class 2 severe obesity due to excess [...] Care Team (Late st Contact Info) Description 02/17/2025 1:00 PM EDT Office Visit [facility] MEDICINE [address] [place] [phone] Teena Castillo MD [address] [place] [address] 02/23/2025 9:00 AM EDT Office Visit [facility] CHC ADULT DENTAL [address] [place] [address] Sara Melchor 505 [place] [address] 04/29/2025 10:00 AM EDT Office Visit [facility] MEDICINE [address] [place] [address] Sean Lyles MD [address] [place] [address] documented as of this encounter Visit Diagnoses Diagnosis Class 2 severe obesity due to excess calories with serious comorbidity and body mass index (BMI) of 37.0 to 37.9 in adult (CMS/HCC) documented in this encounter Additional Health Concerns Assessment Noted Time PHQ-9 Depression Total Score: 10 024 2:46 PM EDT documented as of this encounter Care Teams Toll Bridge Attendant Relationship Specialty Start Date End Date Teena Castillo MD [address] [place] [address] PCP - General Family Medicine 03/18/19 documented as of this encounter
--- OUTSIDE RECORDS SUMMARY | 2025-02-11 14:19 | XMS_ITS ---
Author Organization [employer] Address [address] [facility] [address] 7t [place] [address] Care Team Providers Care Oncology Radiation Physician Name Role Phone Teena Castillo MD Primary Care Provide r CM Complex Status:Outreach In Progress (Enrolling) Start date:01/26/2025 Enrollment reason:ADT Feed Overview ADT- [place] [facility] [place]. Case Team Name Relationship Phone Anton Cárdenas RN(Responsible Staff) Registered Nurse [phone] Continued Care and Services Coordination
--- OUTSIDE RECORDS SUMMARY | 2025-02-11 14:19 | XMS_ITS | Clinical Summary ---
Author Organization [facility] ity Address [address] [place] [address] Care Team Providers Care Coding Clerk Name Role Phone eTena Castillo MD Primary Care Provide r Medical [...] age to complete this topic Care Teams Coding Clerk Relationship Specialty Start Date End Date Teena Castillo MD [address] [place] [phone] PCP - General Internal Medicine 12/31/21
--- OUTSIDE RECORDS SUMMARY | 2025-02-11 14:20 | XMS_ITS | Encounter Summary ---
Author Organization [employer] Address [address] [facility] [address] 7t [place] [address] Care Team Providers Care Air And Water Tester Name Role Phone Teena Castillo MD Primary Care Provide r Encounter Details Date Type Department Care Team (Latest Contact Info) Description 02/11/2025 Travel Social History Tobacco Use Types Packs/Day Years [...] Description 02/17/2025 1:00 PM EDT Office Visit [facility] MEDICINE [address] [place] [phone] Teena Castillo MD [address] [place] [address] 02/23/2025 9:00 AM EDT Office Visit [facility] CHC ADULT DENTAL [address] [place] [address] Melchor, Harmanpreet [address] [place] [address] 04/29/2025 10:00 AM EDT Office Visit [facility] MEDICINE [address] [place] [address] Sean Lyles MD 230 [place] [address] documented as of this encounter Visit Diagnoses Not on filedocumented in this encounter Additional Health Concerns Assessment Noted Time PHQ-9 Depression Total Score: 17 025 3:24 PM EST documented as of this encounter Care Teams Air And Water Tester Relationship Specialty Start Date End Date Teena Castillo MD [address] [place] [address] PCP - General Family Medicine 03/18/19 documented as of this encounter
--- OUTSIDE RECORDS SUMMARY | 2025-02-11 14:20 | XMS_ITS | Encounter Summary ---
Author Organization [employer] Address [address] [facility] [address] 7t [place] [address] Care Team Providers Care Rn Emergency Room Name Role Phone Teena Castillo MD Primary Care Provide r Encounter Details Date Type Department Care Team ([facility] st Contact Info) Description 02/11/2025 2:15 PM EDT Office Visit [facility] MEDICINE [address] [place], [place] [phone] Sean Lyles MD [address] [place] [address] Melasma (Primary Dx); Rash Social History Tobacco Use Types Packs/Day Years [...] Sign Reading Time Taken Comments Blood Pressure 117/80 02/11/2025 1:55 PM EDT Pulse 78 02/11/2025 1:55 PM EDT Temperature 36.2 ??C (97.1 ??F) 02/11/2025 1:55 PM ED T Respiratory Rate 19 02/11/2025 1:55 PM EDT Oxygen Saturation 98% 02/11/2025 1:55 PM EDT Inhaled Oxygen Concentration - - Weight 88.9 kg (196 lb) 02/11/2025 1:55 PM EDT Height 160 cm (5' 3 ) 02/11/2025 1:55 PM EDT Body Mass Index 34.72 02/11/2025 1:55 PM EDT documented in this encounter Plan of Treatment Upcoming Encounters Date Type Department Care Team (Late st Contact Info) Description 02/17/2025 1:00 PM EDT Office Visit [facility] MEDICINE [address] [place] [address] Teena Castillo MD [address] [place] [address] 02/23/2025 9:00 AM EDT Office Visit [facility] CHC ADULT DENTAL [address] [place] [address] Sara Melchor [address] [place] [address] 04/29/2025 10:00 AM EDT Office Visit [facility] MEDICINE [address] [place] [address] Sean Lyles MD [address] [place], [place] [phone] Scheduled Orders Name Type Priority Associated Diagnoses Orde r Schedule TERRENCE Screen,IFA, with Reflex to Titer and Pattern Lab Routine Rash Expected: 02/11/2025 (Approximate), Expires: 02/11/2026 HISTONE ANTIBODIES Lab Routine Rash Expected: 02/11/2025 (Approximate), Expires: 02/11/2026 DNA (ds) Antibody Lab Routine Rash Expected: 02/11/2025 (Approximate), Expires: 02/11/2026 documented as of this encounter Visit Diagnoses Diagnosis Melasma- Primary Other dyschromia Rash Rash and other nonspecific skin eruption documented in this encounter Additional Health Concerns Assessment Noted Time PHQ-9 Depression Total Score: 17 025 3:24 PM EST documented as of this encounter Care Teams Rn Emergency Room Relationship Specialty Start Date End Date Teena Castillo MD [address] [place] [address] [phone] PCP - General Family Medicine 03/18/19 documented as of this encounter
--- OUTSIDE RECORDS SUMMARY | 2025-02-11 14:20 | XMS_ITS | Encounter Summary ---
Author Organization [employer] Address [address] [facility] [address] 7[address] [place] [address] Care Team Providers Care Director Mobile Name Role Phone Teena Castillo MD Primary Care Provide r Reason for Visit * Reason Comments Pre-visit Planning (Unable to reach for PVP screening, LVM) Encounter Details Date Type Department Care Team ([facility] st Contact Info) Description 02/09/2025 Patient Outreach [facility] MEDICINE [address] [place], [place] [phone] Teena Castillo MD [address] [place], [place] [phone] Pre-visit Planning ((Unable to reach for PVP screening, LVM)) Social History Tobacco Use Types Packs/Day Years [...] AM EDT documented as of this encounter Progress Notes * Marcia Steve - 02/09/2025 9:43 AM EDT CC Marcia. Placed outbound call to patient to complete pre-visit planning. No answer at this time. Patient name and were not confirmed. CC left voicemail requesting return call. Direct contact information provided. documented in this encounter Plan of Treatment Upcoming Encounters Date Type Department Care Team ([facility] st Contact Info) Description 02/17/2025 1:00 PM EDT Office Visit [facility] MEDICINE [address] [place] [address] Teena Castillo MD [address] [place] [address] 02/23/2025 9:00 AM EDT Office Visit [facility] CHC ADULT DENTAL [address] [place] [address] Sara Melchor 505 [place] [address] 04/29/2025 10:00 AM EDT Office Visit [facility] MEDICINE [address] [place] [address] Sean Lyles MD [address] [place], [place] [phone] documented as of this encounter Visit Diagnoses Not on filedocumented in this encounter Additional Health Concerns Assessment Noted Time PHQ-9 Depression Total Score: 17 025 3:24 PM EST documented as of this encounter Care Teams Director Mobile Relationship Specialty Start Date End Date Teena Castillo MD [address] [place], [place] [phone] PCP - General Family Medicine 03/18/19 documented as of this encounter
--- OUTSIDE RECORDS SUMMARY | 2025-02-11 14:20 | XMS_ITS | Encounter Summary ---
Author Organization [employer] Address [address] 7[address] [place] [address] Care Team Providers Care Regulatory Submissions Associate Name Role Phone Teena Castillo MD Primary Care Provide r Reason for Visit * Reason Comments Extraction 12 ext Encounter Details Date Type Department Care Team ([facility] st Contact Info) Description 02/09/2025 9:00 AM EDT Office Visit [facility] [address] [place] [address] Sara Melchor [address] [place] [address] Social History Tobacco Use Types Packs/Day Years [...] Sign Reading Time Taken Comments Blood Pressure 112/78 02/09/2025 8:56 AM EDT Pulse - - Temperature - - Respiratory Rate - - Oxygen Saturation - - Inhaled Oxygen Concentration - - Weight - - Height - - Body Mass Index - - documented in this encounter Progress Notes * Sara Melchor - 02/09/2025 9:00 AM EDT Patient ID: Dara Garcia is a 44 y.o. adult. Time Out: Timeout Date: 02/09/25, Timeout Time: 0908 (12 ext) Location: [facility] Tooth: #12 Procedure: Extraction Verified the above with patient, occupational therapy assistant, and provider. Confirmed via patient's chart, intraorally and by radiographs. Electrophonic Engineer: Yes. Language: Singaporean. Electrophonic Engineer's Name: Esin- pt partially understands Filipino Chief Complaint Patient presents with Extraction 12 ext Medical Hx: Vitals: Blood pressure 112/78. Past Medical History: Diagnosis Date Allergic rhinitis 12/07/2015 Arthritis 01/20/2025 Essential hypertension 12/07/2015 Medications: Outpatient Encounter Medications as of 02/09/2025 Medication Sig Dispense Refill acetaminophen (Tylenol) 500 MG tablet Take 1 tablet (500 mg) by mouth every 6 (six) hours if neededfor mild pain for up to 20 doses. 20 tablet 0 amLODIPine (Norvasc) 10 MG tablet TAKE 1 TABLET BY MOUTH EVERY DAY 90 tablet 1 B Complex Vitamins (B-Complex/B-12) tablet TAKE 1 TABLET BY MOUTH EVERY DAY 90 tablet 1 baclofen (Lioresal) 10 MG tablet Take 1 tablet (10 mg) by mouth 3 times daily. 90 tablet 0 chlorhexidine (Peridex) 0.12 % [...] bedtime 90 capsule 0 Tirzepatide-Weight Management (Zepbound) 10 MG/0.5ML solution auto-injector Inject 0.5 mL (10 mg) under the skin 1 (one) time per week. INJECT ONE PEN (=10 MG) SUBCUTANEOUSLY ONCE A WEEK 2 mL 0 Vitamins-Lipotropics (B Complex Formula 1, Lipotrop,) tablet TAKE 1 TABLET BY MOUTH EVERY DAY 90 tablet 1 acetaminophen (Tylenol) 500 MG tablet Take 1 tablet (500 mg) by mouth every 6 (six) hours if neededfor mild pain for up to 20 doses. 20 tablet 0 [] amoxicillin (Amoxil) 500 MG capsule Take 1 capsule (500 mg) by mouth every 8 (eight) hours for 7 days. 21 capsule 0 amoxicillin (Amoxil) 500 MG capsule Take 1 capsule (500 mg) by mouth every 8 (eight) hours for 7 days. 21 capsule 0 chlorhexidine (Peridex) 0.12 % solution Swish 15 mL morning and night for 1 minute. Spit, do not swallow. Do not eat or drink for 30 minutes following use. 473 mL 0 ibuprofen 600 MG tablet Take 1 tablet (600 mg) by mouth every 6 (six) hours if needed for mild painfor up to 20 doses. 20 tablet 0 [DISCONTINUED] baclofen (Lioresal) 10 MG tablet TAKE 1 TABLET BY MOUTH THREE TIMES DAILY 90 tablet 0 [DISCONTINUED] cholecalciferol (Vitamin D High Potency) 25 MCG (1000 UT) capsule TAKE 1 CAPSULE BY MOUTH EVERY DAY 90 capsule 1 [DISCONTINUED] hydrALAZINE (Apresoline) 25 MG tablet TAKE 1 TABLET BY MOUTH THREE TIMES DAILY WITH FOOD 270 tablet 1 No facility-administered encounter medications on file as of 02/09/2025. Consent Obtained: The risks, benefits, indications, potential complications, and alternatives were explained to the patient and informed consent was obtained with good understanding. Treatment Provided: Dental procedures in this visit D7140 - EXTRACTION, ERUPTED TOOTH OR EXPOSED ROOT (ELEVATION/FORCEPS REMOVAL) 12 (Completed) Service provider: Sara Melchor Billvanessa provider: Sara Melchor D9450 - CASE PRESENTATION, DETAILED AND EXTENSIVE TREATMENT PLANNING (Completed) Service provider: Sara Melchor Billvanessa provider: Sara Melchor Diagnosis: Non-restorable #12 Topical: 20% Benzocaine Anesthesia: 2% Lidocaine (Xylocaine) w/ 1:100,000 epinephrine and 4% Septocaine (Articaine) w/ 1:200,000 epinephrine Number of Cartridges: 2 Injection Type: Buccal infiltration and Palatal infiltration Confirmed profound anesthesia. Pharyngeal curtain and bite block placed. Removed tooth with elevators and forceps. Apices intact. Surgical Extraction: N/A Socket curetted & irrigated with sterile water. Compressed alveolar bone. Sutures: None Needed All adjacent teeth intact. Hemostasis achieved. Complications: n/a Written and verbal post-op instructions given. Patient discharged in stable condition; ambulatory, alert, and oriented. Rx:Amoxicillin 500 mg every 8 hours for 7 days Acetaminophen 500 mg every 6 hours prn for pain - 20 tabs Ibuprofen 600 mg every 6 hours prn for pain - 20 tabs Peridex NV: RCT #13 Citizenship Instructor: Eleanor Dentist: Dr. Sara Melchor, DMD documented in this encounter Plan of Treatment Upcoming Encounters Date Type Department Care Team (Late st Contact Info) Description 02/17/2025 1:00 PM EDT Office Visit [facility] [address] [place] [address] Teena Castillo MD [address] [place] [address] 02/23/2025 9:00 AM EDT Office Visit [facility] [address] [place] [address] Sara Melchor [address] [place] [address] 04/29/2025 10:00 AM EDT Office Visit [address] [address] Sean Lyles MD [address] [place] [phone] documented as of this encounter Procedures Procedure Name Priority Date/Time Associated Diagnosis Comments 12 EXTRACTION, ERUPTED TOOTH OR EXPOSED ROOT (ELEVATION/FORCEPS REMOVAL) Routine 02/09/2025 9:00 AM EDT CASE PRESENTATION, DETAILED AND EXTENSIVE TREATMENT PLANNING Routine 02/09/2025 9:00 AM EDT documented in this encounter Visit Diagnoses Not on filedocumented in this encounter Additional Health Concerns Assessment Noted Time PHQ-9 Depression Total Score: 17 11/23/2 025 3:24 PM EST documented as of this encounter Care Teams Regulatory Submissions Associate Relationship Specialty Start Date End Date Teena Castillo MD [address] [place] [phone] PCP - General Family Medicine 03/18/19 documented as of this encounter
--- OUTSIDE RECORDS SUMMARY | 2025-02-11 14:20 | XMS_ITS | Encounter Summary ---
Author Organization [employer] Address [address] [place] [address] Care Team Providers Care Tax Audit Manager Name Role Phone Teena Castillo MD Primary Care Provide r Encounter Details Date Type Department Care Team (Late st Contact Info) Description 02/07/2025 Orders Only [facility] External Provider, [facility] Social History Tobacco Use Types Packs/Day [...] Description 02/17/2025 1:00 PM EDT Office Visit [facility] [address] [place] [address] Teena Castillo MD [address] [place] [address] 02/23/2025 9:00 AM EDT Office Visit [facility] [address] [place] [address] Melchor, Georgeanpreet [address] [place] [address] 04/29/2025 10:00 AM EDT Office Visit [facility] [address] [place] [address] Sean Lyles MD [address] [place] [address] documented as of this encounter Procedures Procedure Name Priority Date/Time Associated Diagnosis Comments HIGH SENSITIVITY TROPONIN I Routine 02/07/2025 1:28 PM EDT SARS COV2/INFLUENZA A/B AND RSV RNA QL NAAT Routine 02/07/2025 1:28 PM EDT CBC WITH AUTO DIFFERENTIAL Routine 02/07/2025 1:28 PM EDT LIPASE Routine 02/07/2025 1:28 PM EDT COMPREHENSIVE METABOLIC PANEL Routine 02/07/2025 1:28 PM EDT XR CHEST 2 VIEWS Routine 02/07/2025 12:3 5 PM EDT documented in this encounter Results * SARS-CoV-2 RNA, Influenza A/B, and RSV RNA, Ql NAAT (02/07/2025 1:28 PM EDT) Influenza A PCR NEGATIVE Negative [facility] Influenza B PCR NEGATIVE Negative [facility] Resp Syncy Virus RNA Qual PCR NEGATIVE Negative [facility] SARS COV2 PCR NEGATIVE Negative [facility] Comment:All test results mus t be correlated with clinical findings.Negative results do not preclude SARS-CoV2, influenza Avirus, influenza B virus and/or RSV infectionand should not be used as the sole basis for treatment orother patient management decisions. Negative results must becombined with clinical observations, patient history, andepidemiological information.This test has not been evaluated for monitoring treatment ofinfection.This test has been authorized by the FDA under an EmergencyUse Authorization (EUA) for use by authorized laboratories.Testing performed on the [employer] GeneXpert utilizingreal-time RT-PCR.All SARS CoV2 and positive influenza A/B results arereported to [facility]. 02/07/2025 1:28 PM EDT 02/07/2025 1:30 PM EDT us Generic External Data Provider LAB MICROBIOLOGY - GENERAL ORDERABLES Final Result [facility] [address] [place] [phone] * Lipase (02/07/2025 1:28 PM EDT) Lipase 30 8 - 78 U/L [facility] 02/07/2025 1:28 PM EDT 02/07/2025 1:30 PM EDT us Generic External Data Provider LAB BLOOD ORDERAB LES Final Result [facility] [address] [place] [phone] * Comprehensive Metabolic Panel (02/07/2025 1:28 PM EDT) Sodium 140 135 - 145 mmol/L [facility] Potassium 3.6 3.3 - 5.1 mmol/L [facility] Chloride 105 96 - 108 mmol/L [facility] Carbon Dioxide 27 22 - 29 mmol/L [facility] Anion Gap 12 12 - 20 [facility] Urea Nitrogen (BUN) 10 9 - 16 mg/dL [facility] Creatinine, Serum 0.82 0.5 - 1.4 mg/dL [facility] Creatinine Clr Calc Pharmacy 92.6 [facility] Comment:Provided height and weight: 160.02 cm,87.2 kg.eGFR (calculated from the MDRD study equation) and eCrCl(calculated from the Cockcroft-Gault equation) are based ondifferent parameters and may not yield comparable results.If eCrCl result is absurd, please check patient'sheight/weight. Estimated Glomerular Filt Rate >60 [facility] Comment:Chronic Kidney Disea se: Estimated GFR < 60 mL/min/1.25i3Pukgpv Kidney Disease: Estimated GFR < 15 mL/min/1.73m2 Glucose 87 60 - 115 mg/dL [facility] Calcium 9.6 8.4 - 10.2 mg/dL [facility] Bilirubin, Total 0.3 0.0 - 1.0 mg/dL [facility] Aspartate Amino Transferase 20 5 - 31 U/L [facility] Alanine Aminotransferase 19 0 - 31 U/L [facility] Total Protein 6.9 6.5 - 8.0 g/dL [facility] Albumin Level 3.7 3.5 - 5.0 g/dL [facility] Alkaline Phosphatase 72 39 - 117 U/L [facility] 02/07/2025 1:28 PM EDT 02/07/2025 1:30 PM EDT Generic External Data Provider LAB BLOOD ORDERAB LES Final Result Performing Organization Address [facility] Co de Phone Number [facility] [address] [place] [phone] * High Sensitivity Troponin I (02/07/2025 1:28 PM EDT) [facility] TROPONIN I HIGH SENSITIVITY <2.7 <3.5 - 17.0 ng/L [facility] Comment:The Casas high sens itivity Troponin-I results should beused in conjunction with other diagnostic information suchas ECG, clinical observations and information, and patientsymptoms to aid in the diagnosis of ME. 02/07/2025 1:28 PM EDT 02/07/2025 1:30 PM EDT Generic External Data Provider LAB BLOOD ORDERAB LES Final Result Performing Organization Address [facility] Co de Phone Number [facility] [address] [place] [phone] * (ABNORMAL) CBC auto differential (02/07/2025 1:28 PM EDT) [facility] White Blood Count 6.8 4.8 - 10.8 X10*3/uL [facility] Red Blood Count 5.17 4.20 - 5.50 X10*6/uL [facility] Hemoglobin 13.6 12.0 - 16.0 g/dl [facility] Hematocrit 42.4 37.0 - 47.0 % [facility] Mean Corpuscular Volume 82.0 80.0 - 98.0 fL [facility] Mean Corpuscular Hemoglobin 26.3(L) 27.0 - 33.0 pg [facility] Mean Corpuscular HGB Conc 32.1 31.0 - 35.0 g/dl [facility] Red Cell Distribution Width 14.2 11.0 - 16.0 % [facility] Platelet Count 271 160 - 400 X10*3/uL [facility] Mean Platelet Volume 9.5 9.4 - 12.3 fL [facility] Neutrophils Percent Auto 63.7 45 - 73 % [facility] Imm Gran Pct Auto 0.3 0.0 - 0.4 % [facility] Lymphocytes Percent Auto 25.0 20 - 40 % [facility] Monocytes Percent Auto 8.5 2 - 11 % [facility] Eosinophils Percent Auto 1.6 0 - 4 % [facility] Basophils Percent Auto 0.9 0 - 2 % [facility] NRBC Pct Auto 0.0 0.0 - 0.2 /100WBC [facility] Neutrophils Absolute Auto 4.3 2.0 - 8.3 x10*3/uL [facility] Imm Gran Abs Auto 0.02 0.00 - 0.03 X10*3/uL [facility] Lymphocytes Absolute Auto 1.7 1.2 - 4.9 X10*3/uL [facility] Monocytes Absolute Auto 0.6 0.1 - 1.2 X10*3/uL [facility] Eosinophils Absolute Auto 0.1 0.0 - 0.4 X10*3/uL [facility] Basophils Absolute Auto 0.1 0.0 - 0.2 X10*3/uL [facility] NRBC Abs Auto 0.000 0.0 - 0.012 X10*3/uL [facility] 02/07/2025 1:28 PM EDT 02/07/2025 1:30 PM EDT us Generic External Data Provider LAB BLOOD ORDERAB LES Final Result [facility] [address] [place] [phone] * XR Chest 2 Views (02/07/2025 12:35 PM EDT) Anatomical Region Laterality Modality Chest Radiographic Anyi ging 02/07/2025 12:3 5 PM EDT Narrative 02/07/2025 12:57 PM EDT ? [facility] ?[address] ?[place] [address] ?XRay Report ? Signed ? Patient: Garcia,Dara ?MR#: [id number] ?? 47 ? : 1980 ?Acct:[id number] ? Age/Sex: 44 / F ?ADM Date: 02/07/25 ? Loc: HO.ED ? Attending Dr: ? Ordering Physician: Glenn Moise ?? Date of Service: 02/07/25 ?? Procedure(s): XR chest 2V ?? Accession Number(s): [id number] ? cc: Teena Castillo MD; Glenn Moise [...] DD/ 1235 ? TD/TT: 02/07/25 1250 ? Petroleum Geologist: ? Procedure Note Ilda Cleveland - 02/07/[address] [address] XRay Report Signed Patient: Angi Garcia#: [id number] 47 : 1980Acct:[id number] Age/Sex: 44 / FADM Date: 02/07/25 Loc: HO.ED Attending Dr: Ordering Physician: Glenn Moise Date of Service: 02/07/25 Procedure(s): XR chest 2V Accession Number(s): [id number] cc: Teena Castillo MD; Glenn Moise EXAMINATION: [...] 02/07/25 1254 DD/ 1235 TD/TT: 02/07/25 1250 Petroleum Geologist: [facility] External Provider IMG XR PROCEDURES Final Result documented in this encounter Visit Diagnoses Not on filedocumented in this encounter Additional Health Concerns Assessment Noted Time PHQ-9 Depression Total Score: 17 025 3:24 PM EST documented as of this encounter Care Teams Tax Audit Manager Relationship Specialty Start Date End Date Teena Castillo MD [address] [place] [address] PCP - General Family Medicine 03/18/19 documented as of this encounter
--- OUTSIDE RECORDS SUMMARY | 2025-02-11 14:20 | XMS_ITS | Encounter Summary ---
Author Organization [employer] Address [address] [place] [address] Care Team Providers Care Tank Car Loader Name Role Phone Teena Castillo MD Primary Care Provide r Reason for Visit * Reason Onset Date Comments Med Refill 02/08/2025 Encounter Details Date Type Department Care Team (Late st Contact Info) Description 02/08/2025 Refill [facility] [address] [place], [place] [phone] Teena Castillo MD [address] [place] [address] Vitamin deficiency; Fibromyositis; Essential hypertension Social History Tobacco Use Types [...] your housing situation today? I have arnulfo sing 06/15/[address] you li [...] AM EDT documented as of this encounter Miscellaneous Notes * Telephone Encounter - Pau Burt LPN - 02/08/2025 11:22 AM EDT Next appointment 02.17.25 documented in this encounter Plan of Treatment Upcoming Encounters Date Type Department Care Team (Late st Contact Info) Description 02/17/2025 1:00 PM EDT Office Visit [facility] [address] [place] [phone] Teena Castillo MD [address] [place] [address] 02/23/2025 9:00 AM EDT Office Visit [facility] [address] [place] [address] Sara Melchor [address] [place] [address] 04/29/2025 10:00 AM EDT Office Visit [facility] [address] [place] [address] Sean Lyles MD [address] [place] [address] documented as of this encounter Visit Diagnoses Diagnosis Vitamin deficiency Unspecified vitamin deficiency Fibromyositis Unspecified myalgia and myositis Essential hypertension Unspecified essential hypertension documented in this encounter Additional Health Concerns Assessment Noted Time PHQ-9 Depression Total Score: 17 11/23/ 025 3:24 PM EST documented as of this encounter Care Teams Tank Car Loader Relationship Specialty Start Date End Date Teena Castillo MD [address] [place] [address] PCP - General Family Medicine 03/18/19 documented as of this encounter
--- OUTSIDE RECORDS SUMMARY | 2025-02-11 14:20 | XMS_ITS | Encounter Summary ---
Author Organization [employer] Address [address] [place] [address] Care Team Providers Care Reverse Logistics Analyst Name Role Phone Teena Castillo MD Primary Care Provide r Encounter Details Date Type Department Care Team ([facility] st Contact Info) Description 02/08/2025 Patient Outreach [facility] [address] [place], [place] [phone] Teena Castillo MD [address] [place] [address] Social History Tobacco Use Types Packs/Day Years [...] Description 02/17/2025 1:00 PM EDT Office Visit [facility] [address] [place] [address] Teena Castillo MD [address] [place] [address] 02/23/2025 9:00 AM EDT Office Visit [facility] [address] [place] [address] Jill Georgematthewet [address] [place] [address] 04/29/2025 10:00 AM EDT Office Visit [facility] [address] [place] [address] Sean Lyles MD [address] [place] [phone] documented as of this encounter Visit Diagnoses Not on filedocumented in this encounter Additional Health Concerns Assessment Noted Time PHQ-9 Depression Total Score: 17 025 3:24 PM EST documented as of this encounter Care Teams Reverse Logistics Analyst Relationship Specialty Start Date End Date Teena Castillo MD [address] [place] [address] PCP - General Family Medicine 03/18/19 documented as of this encounter
--- OUTSIDE RECORDS SUMMARY | 2025-02-11 14:20 | XMS_ITS | Encounter Summary ---
Author Organization [employer] Address [address] [place] [address] Care Team Providers Care Bandage Winding Machine Operator Name Role Phone Teena Castillo MD Primary Care Provide r Reason for Visit * Reason Onset Date Comments telephone call 02/08/2025 Encounter Details Date Type Department Care Team ([facility] st Contact Info) Description 02/08/2025 Refill [facility] [address] [place] [address] Teena Castillo MD [address] [place] [address] Essential hypertension Social History Tobacco Use Types [...] as of this encounter Miscellaneous Notes * Addendum Note - Pavan Dixon RN - 02/08/2025 12:56 PM EDTAddended by: PAVAN DIXON on: 02/08/2025 12:56 PM Modules accepted: Orders * Telephone Encounter - Sonya Luke - 02/08/2025 12:38 PM EDT Pt walked in requesting a refill on Hydralazine 25mg. documented in this encounter Plan of Treatment Upcoming Encounters Date Type Department Care Team (Late st Contact Info) Description 02/17/2025 1:00 PM EDT Office Visit [facility] [address] [place] [address] Teena Castillo MD [address] [place] [address] 02/23/2025 9:00 AM EDT Office Visit [facility] [address] [place] [address] Sara Melchor [address] [place] [address] 04/29/2025 10:00 AM EDT Office Visit [facility] [address] [place] [address] Sean Lyles MD [address] [place] [address] documented as of this encounter Visit Diagnoses Diagnosis Essential hypertension Unspecified essential hypertension documented in this encounter Additional Health Concerns Assessment Noted Time PHQ-9 Depression Total Score: 17 025 3:24 PM EST documented as of this encounter Care Teams Bandage Winding Machine Operator Relationship Specialty Start Date End Date Teena Castillo MD [address] [place] [address] PCP - General Family Medicine 03/18/19 documented as of this encounter
--- OUTSIDE RECORDS SUMMARY | 2025-02-11 14:20 | XMS_ITS | Clinical Summary ---
Author Organization [employer] Address [address] [place] [address] Care Team Providers Care Music Coordinator Name Role Phone Teena Castillo MD [...] EVERY DAY 90 tablet 1 024 Active hydroCHLOROthia zide 12.5 MG [...] WITH FOOD 90 tablet 1 024 Active metoprolol succinate XL (Toprol-XL) 50 MG 24 hr tablet TAKE 1 TABLET BY MOUTH EVERY MORNING DO NOT BREAK, CRUSH, DISSOLVE OR CHEW 90 tablet 1 024 Active Vitamins-Lipotr opics (B Complex Formula 1, [...] (BMI) of 37.0 to 37.9 in adult ([facility]) Inject 0.5 mL (10 mg) under the skin 1 (one) time per week. INJECT ONE PEN (=10 MG) SUBCUTANEOUSLY ONCE A WEEK 2 mL 025 Active cholecalciferol (Vitamin D High Potency) 25 MCG (1000 UT) capsuleIndicati ons:Vitamin deficiency TAKE 1 CAPSULE BY MOUTH EVERY DAY 90 capsule 025 Active baclofen (Lioresal) 10 MG tabletIndicatio ns:Fibromyositi s Take 1 tablet (10 mg) by mouth 3 times daily. 90 tablet 025 Active hydrALAZINE (Apresoline) 25 MG tabletIndicatio ns:Essential hypertension TAKE 1 TABLET BY MOUTH THREE TIMES DAILY WITH FOOD 270 tablet 1 025 Active acetaminophen (Tylenol) 500 MG tablet Take 1 tablet (500 mg) by mouth every 6 (six) hours if needed for mild pain for up to 20 doses. 20 tablet Active chlorhexidine (Peridex) 0.12 % solution Swish 15 mL morning and night for 1 minute. Spit, do not swallow. Do not eat or drink for 30 minutes following use. 473 mL Active amoxicillin (Amoxil) 500 MG capsule Take 1 capsule (500 mg) by mouth every 8 (eight) hours for 7 days. 21 capsule 025 2024 Active ibuprofen 600 MG tablet Take 1 tablet (600 mg) by mouth every 6 (six) hours if needed for mild pain for up to 20 doses. 20 tablet Active hydroquinone 4 % creamIndication s:Melasma Apply topically 2 times daily. 28.35 g 025 2025 Active cholecalciferol (Vitamin D High Potency) 25 MCG (1000 UT) capsuleIndicati ons:Vitamin deficiency TAKE 1 CAPSULE BY MOUTH EVERY DAY 90 capsule 1 024 2024 Discontinued(R eorder (will not trigger notification to Pharmacy)) hydrALAZINE (Apresoline) 25 MG tabletIndicatio ns:Essential hypertension TAKE 1 TABLET BY MOUTH THREE TIMES DAILY WITH FOOD 270 tablet 1 024 2024 Discontinued(R eorder (will not trigger notification to Pharmacy)) baclofen (Lioresal) 10 MG tabletIndicatio ns:Fibromyositi s TAKE 1 TABLET BY MOUTH THREE TIMES DAILY 90 tablet 025 2024 Discontinued(R eorder (will not trigger notification to Pharmacy)) Tirzepatide-Jem ght Management (Zepbound) 7.5 MG/0.5ML solutionIndicat ions:Class 2 severe obesity due to excess calories with serious comorbidity and body mass index (BMI) of 37.0 to 37.9 in adult ([facility]) Inject 7.5 mg under the skin 1 (one) time per week. 2 mL 025 2024 Discontinued amoxicillin (Amoxil) 500 MG capsule Take 1 capsule (500 mg) by mouth every 8 (eight) hours for 7 days. 21 capsule 025 2024 amoxicillin (Amoxil) 500 MG capsule Take 1 [...] Encounters Date Type Department Care Team Description 02/11/2025 2:15 PM EDT Office Visit [address] [address] Sean Lyles MD Melasma (Primary Dx); Rash 02/11/2025 Travel 02/09/2025 9:00 AM EDT Office Visit [facility] [address] [place] [address] Sara Melchor 02/09/2025 Patient Outreach [address] [address] Teena Catsillo MD 02/09/2025 Patient Outreach [address] [address] Teena Castillo MD Pre-visit Planning ((Unable to reach for PVP screening, LVM)) 02/08/[address] [address] Teena Castillo MD Essential hypertension 02/08/2025 Patient Outreach [address] [address] Teena Castillo MD 02/08/2025 Refill [facility] [address] [place] [address] Teena Castillo MD Vitamin deficiency; Fibromyositis; Essential hypertension 02/07/2025 Orders Only [facility] External Provider, [facility] 02/01/2025 Orders Only GENERIC EXTERNAL DATA DEPARTMENT Provider, Generic External Data 02/01/2025 Patient Outreach [facility] [address] [place] [phone] Teena Castillo MD 01/31/2025 1:00 PM EDT Office Visit [facility] ADULT DENTAL [address] [place] [address] Jill Georgeapril 01/28/2025 Patient Outreach [address] [address] Teena Castillo MD Care Coordination (CM/CHW outreach) 01/27/2025 Patient Outreach [address] [address] Teena Castillo MD 01/27/2025 Patient Outreach [facility] [address] [place] [address] Teena Castillo MD Transition Of Care (Tcm) (HDF unscheduled) 01/27/2025 Patient Outreach [address] [address] Teena Castillo MD 01/27/2025 Patient Outreach [facility] [address] [place] [address] Teena Castillo MD 01/26/2025 Patient Outreach [facility] [address] [place] [address] Teena Castillo MD 01/26/2025 Patient Outreach [facility] [address] [place] [address] Teena Castillo MD 01/26/2025 Patient Outreach [facility] [address] [place] [address] Teena Castillo MD 01/26/2025 Patient Outreach [address] [address] Teena Castillo MD Care Coordination (W chart review) 01/26/2025 Patient Outreach [address] [address] Teena Castillo MD Care Management ([facility]- chart review) 01/26/2025 Patient Outreach [address] [address] Teena Castillo MD 01/25/2025 Orders Only GENERIC EXTERNAL DATA DEPARTMENT Provider, Generic External Data 01/21/[address] [address] Teena Castillo MD Class 2 severe obesity due to excess calories with serious comorbidity and body mass index (BMI) of 37.0 to 37.9 in adult (CMS/HCC) 01/20/2025 11:30 AM EDT Office Visit [facility] ADULT DENTAL [address] [place] [address] Mitch Melchorluis a 01/14/2025 Orders Only GENERIC EXTERNAL DATA DEPARTMENT Provider, Generic External Data 12/24/[address] [address] Teena Castillo MD TELEPHONE CALL 12/22/[address] [address] Teena Castillo MD Prior Auth Prescription; Prior Authorization ( PA Request: Zepbound) 12/21/[address] [address] Teena Castillo MD Call Back Request 12/20/2024 Orders Only [address] [address] Teena Castillo MD Morbid obesity (CMS/[facility]) (Primary Dx); Class 2 severe obesity due to excess calories with serious comorbidity and body mass index (BMI) of 37.0 to 37.9 in adult (CMS/HCC) 12/20/2024 Telephone [facility] [address] [place] [address] Teena Castillo MD Medication Question 12/10/2024 Population Health Risk Score [facility] (C[facility]) Department [address] [phone] Provider, Population Health Generic 11/23/2024 3:15 PM EST Office Visit [facility] [address] [place] [address] Teena Castillo MD Dyspnea on exertion (Primary Dx); Essential hypertension 11/23/2024 Travel 11/18/2024 Telephone [facility] [address], [place] [phone] Teena Castillo MD Chart Prep from Last 3 Months Immunizations Immunization Administration Dates Next Due Influenza injectable quadrivalent [...] Mass Index 34.72 02/11/2025 1:55 PM EDT Plan of Treatment Upcoming Encounters Date Type Department Care Team (Late st Contact Info) Description 02/17/2025 1:00 PM EDT Office Visit [facility] [address] [place] [address] Teena Castillo MD [address] [place] [address] 02/23/2025 9:00 AM EDT Office Visit [facility] [address] [place], [place] [phone] Sara Melchor [address] [place] [address] 04/29/2025 10:00 AM EDT Office Visit [facility] [address] [place] [address] Sean Lyles MD [address] [place] [address] Health Maintenance Due Date Last Done Comments Dental Oral Exam 1980 Dental Prophylaxis 1980 Dental X-Ray: Full Mouth 1980 HIV Screening 1980 Family Planning (PISQ) 1996 Hepatitis B Vaccines (1 of 3 - 19+ 3-dose series) 2000 DTaP/Tdap/Td Vaccines (2 - Td or Tdap) 08/14/2021 08/14/2011 COVID-19 Vaccine ( season) 2024 04/12/2021, 03/22/2021 Influenza Vaccine (#1) 2024 9, 07/07/2014, 10/26/2013, Additional history exists Alcohol/Substance Use Screening 06/15/2025 06/15/2024 SDOH Screening 06/15/2025 06/15/2024 Mammogram 09/01/2025 09/01/2024, 07/25/2023 Depression Screening 11/23/2025 11/23/2024, 11/23/19 Dental X-Ray: Bitewings 01/21/2026 01/20/2025 Tobacco Screening 02/11/2026 02/11/2025 Pap Smear 05/01/2026 05/01/2023 Cervical Cancer Screening [...] Procedure Name Priority Date/Time Associated Diagnosis Comments CASE PRESENTATION, DETAILED AND EXTENSIVE TREATMENT PLANNING Routine 02/09/2025 9:00 AM EDT 12 EXTRACTION, ERUPTED TOOTH OR EXPOSED ROOT (ELEVATION/FORCEPS REMOVAL) Routine 02/09/2025 9:00 AM EDT LIPASE Routine 02/07/2025 1:28 PM EDT COMPREHENSIVE METABOLIC PANEL Routine 02/07/2025 1:28 PM EDT HIGH SENSITIVITY TROPONIN I Routine 02/07/2025 1:28 PM EDT CBC WITH AUTO DIFFERENTIAL Routine 02/07/2025 1:28 PM EDT SARS COV2/INFLUENZA A/B AND RSV RNA QL NAAT Routine 02/07/2025 1:28 PM EDT XR CHEST [...] Maintenance Results * High Sensitivity Troponin I (02/07/2025 1:28 PM EDT) Only the most recent of2 resultswithin the time period is included. TROPONIN I HIGH SENSITIVITY <2.7 <3.5 - 17.0 ng/L [facility] Comment:The Casas high sens itivity Troponin-I results should beused in conjunction with other diagnostic information suchas ECG, clinical observations and information, and patientsymptoms to aid in the diagnosis of OR. 02/07/2025 1:28 PM EDT 02/07/2025 1:30 PM EDT us Generic External Data Provider LAB BLOOD ORDERAB LES Final Result [facility] [address] [place] [phone] * SARS-CoV-2 RNA, Influenza A/B, and RSV RNA, Ql NAAT (02/07/2025 1:28 PM EDT) [facility] Influenza A PCR NEGATIVE Negative [facility] Influenza B PCR NEGATIVE Negative [facility] Resp Syncy Virus RNA Qual PCR NEGATIVE Negative [facility] SARS COV2 PCR NEGATIVE Negative [facility] Comment:All test results mus t be [...] use by authorized laboratories.Testing performed on the [employer] GeneXpert utilizingreal-time RT-PCR.All SARS CoV2 and positive influenza A/B results arereported to [facility]. 02/07/2025 1:28 PM EDT 02/07/2025 1:30 PM EDT us Generic External Data Provider LAB MICROBIOLOGY - GENERAL ORDERABLES Final Result [facility] [address] [place] [phone] * (ABNORMAL) CBC auto differential (02/07/2025 1:28 PM EDT) Only the most recent of3 resultswithin the time period is included. White Blood Count 6.8 4.8 - 10.8 X10*3/uL [facility] Red Blood Count 5.17 4.20 - 5.50 X10*6/uL [facility] Hemoglobin 13.6 12.0 - 16.0 g/dl [facility] Hematocrit 42.4 37.0 - 47.0 % [facility] Mean Corpuscular Volume 82.0 80.0 - 98.0 fL [facility] Mean Corpuscular Hemoglobin 26.3(L) 27.0 - 33.0 pg [facility] Mean Corpuscular HGB Conc 32.1 31.0 - 35.0 g/dl [facility] Red Cell Distribution Width 14.2 11.0 - 16.0 % [facility] Platelet Count 271 160 - 400 X10*3/uL [facility] Mean Platelet Volume 9.5 9.4 - 12.3 fL [facility] Neutrophils Percent Auto 63.7 45 - 73 % [facility] Imm Gran Pct Auto 0.3 0.0 - 0.4 % [facility] Lymphocytes Percent Auto 25.0 20 - 40 % [facility] Monocytes Percent Auto 8.5 2 - 11 % [facility] Eosinophils Percent Auto 1.6 0 - 4 % [facility] Basophils Percent Auto 0.9 0 - 2 % [facility] NRBC Pct Auto 0.0 0.0 - 0.2 /100WBC [facility] Neutrophils Absolute Auto 4.3 2.0 - 8.3 x10*3/uL [facility] Imm Gran Abs Auto 0.02 0.00 - 0.03 X10*3/uL [facility] Lymphocytes Absolute Auto 1.7 1.2 - 4.9 X10*3/uL [facility] Monocytes Absolute Auto 0.6 0.1 - 1.2 X10*3/uL [facility] Eosinophils Absolute Auto 0.1 0.0 - 0.4 X10*3/uL [facility] Basophils Absolute Auto 0.1 0.0 - 0.2 X10*3/uL [facility] NRBC Abs Auto 0.000 0.0 - 0.012 X10*3/uL [facility] 02/07/2025 1:28 PM EDT 02/07/2025 1:30 PM EDT Generic External Data Provider LAB BLOOD ORDERAB LES Final Result Performing Organization Address City/[facility] Co de Phone Number [facility] [address] [place] [phone] * Lipase (02/07/2025 1:28 PM EDT) Lipase 30 8 - 78 U/L [facility] 02/07/2025 1:28 PM EDT 02/07/2025 1:30 PM EDT [employer] External Data Provider LAB BLOOD ORDERAB LES Final Result Performing Organization Address City/[facility] Co de Phone Number [facility] [address] [place] [phone] * Comprehensive Metabolic Panel (02/07/2025 1:28 PM EDT) Only the most recent of3 resultswithin the time period is included. Sodium 140 135 - 145 mmol/L [facility] Potassium 3.6 3.3 - 5.1 mmol/L [facility] Chloride 105 96 - 108 mmol/L [facility] Carbon Dioxide 27 22 - 29 mmol/L [facility] Anion Gap 12 12 - 20 [facility] Urea Nitrogen (BUN) 10 9 - 16 mg/dL [facility] Creatinine, Serum 0.82 0.5 - 1.4 mg/dL [facility] Creatinine Clr Calc Pharmacy 92.6 [facility] Comment:Provided height and weight: 160.02 cm,87.2 kg.eGFR (calculated from the MDRD study equation) and eCrCl(calculated from the Cockcroft-Gault equation) are based ondifferent parameters and may not yield comparable results.If eCrCl result is absurd, please check patient'sheight/weight. Estimated Glomerular Filt Rate >60 [facility] Comment:Chronic Kidney Disea se: Estimated GFR < 60 mL/min/1.87p1Dyfjec Kidney Disease: Estimated GFR < 15 mL/min/1.73m2 Glucose 87 60 - 115 mg/dL [facility] Calcium 9.6 8.4 - 10.2 mg/dL [facility] Bilirubin, Total 0.3 0.0 - 1.0 mg/dL [facility] Aspartate Amino Transferase 20 5 - 31 U/L [facility] Alanine Aminotransferase 19 0 - 31 U/L [facility] Total Protein 6.9 6.5 - 8.0 g/dL [facility] Albumin Level 3.7 3.5 - 5.0 g/dL [facility] Alkaline Phosphatase 72 39 - 117 U/L [facility] 02/07/2025 1:28 PM EDT 02/07/2025 1:30 PM EDT us Generic External Data Provider LAB BLOOD ORDERAB LES Final Result [facility] [address] [place] [phone] * XR Chest 2 Views (02/07/2025 12:35 PM EDT) Anatomical Region Laterality Modality Chest Radiographic Anyi ging 02/07/2025 12:3 5 PM EDT Narrative 02/07/2025 12:57 PM EDT ? [facility] ?[address] ?[place] [address] ?XRay Report ? Signed ? Patient: Garcia,Dara ?MR#: [id number] ?? 47 ? : 1980 ?Acct:[id number] ? Age/Sex: 44 / F ?ADM Date: 02/07/25 ? Loc: HO.ED ? Attending Dr: ? Ordering Physician: Glenn Moise ?? Date of Service: 02/07/25 ?? Procedure(s): XR chest 2V ?? Accession Number(s): [id number] ? cc: Teena Castillo MD; Glenn Moise [...] Tamez MD ??02/07/2025 12:54 PM EDT RP ?? Workstation: [id number] ? Dictated By: ?Ray Tamez MD ? Signed By: ?<Electronically signed by Ray Tamez MD in OV> ?02/07/25 1254 ? DD/ 1235 ? TD/TT: 02/07/25 1250 ? Fan Mail Clerk: ? Procedure Note Ilda [place] - 02/07/[address] [address] XRay Report Signed Patient: Angi Garcia#: [id number] 47 : 1980Acct:[id number] Age/Sex: 44 / FADM Date: 02/07/25 Loc: HO.ED Attending Dr: Ordering Physician: Glenn Moise Date of Service: 02/07/25 Procedure(s): XR chest 2V Accession Number(s): [id number] cc: Teena Castillo MD; Glenn Moise EXAMINATION: [...] Ray Tamez MD 02/07/2025 12:54 PM EDT RP Workstation: [id number] Dictated By: Ray Tamez MD Signed By: <Electronically signed by Ray Tamez MD in OV> 02/07/25 1254 DD/ 1235 TD/TT: 02/07/25 1250 Fan Mail Clerk: [facility] External Provider IMG XR PROCEDURES Final Result * Potassium (02/01/2025 10:29 AM EDT) Potassium 3.4 3.3 - 5.1 mmol/L [facility] 02/01/2025 10:2 9 AM EDT 02/01/2025 10:29 AM EDT Generic External Data Provider LAB BLOOD ORDERAB LES Final Result [facility] [address] [place] [phone] * Prothrombin Time-INR (01/14/2025 10:29 AM EDT) Prothrombin Time 12.1 10.9 - 12.4 SEC [facility] INTERNATIONAL NORM RATIO 1.0 0.9 - 1.1 [facility] Comment:INTERNATIONAL NORMAL IZED RATIO [...] ORDERAB LES Final Result Performing Organization Address City/State/[facility] Co de Phone Number [facility] [address] [place] [phone] * (ABNORMAL) CBC (01/14/2025 10:29 AM EDT) White Blood Count 6.2 4.8 - 10.8 X10*3/uL [facility] Red Blood Count 5.05 4.20 - 5.50 X10*6/uL [facility] Hemoglobin 13.3 12.0 - 16.0 g/dl [facility] Hematocrit 41.3 37.0 - 47.0 % [facility] Mean Corpuscular Volume 81.8 80.0 - 98.0 fL [facility] Mean Corpuscular Hemoglobin 26.3(L) 27.0 - 33.0 pg [facility] Mean Corpuscular HGB Conc 32.2 31.0 - 35.0 g/dl [facility] Red Cell Distribution Width 13.5 11.0 - 16.0 % [facility] Platelet Count 241 160 - 400 X10*3/uL [facility] Mean Platelet Volume 9.9 9.4 - 12.3 fL [facility] NRBC Pct Auto 0.0 0.0 - 0.2 /100WBC [facility] NRBC Abs Auto 0.000 0.0 - 0.012 X10*3/uL [facility] 01/14/2025 10:2 9 AM EDT 01/14/2025 10:29 AM EDT us Generic External Data Provider LAB BLOOD ORDERAB LES Final Result Performing Organization Address [facility] [place] [facility]/ZIP Co de Phone Number [facility] [address] [place] [phone] * (ABNORMAL) Basic Metabolic Panel (01/14/2025 10:29 AM EDT) Sodium 140 135 - 145 mmol/L [facility] Potassium 3.2(L) 3.3 - 5.1 mmol/L [facility] Chloride 106 96 - 108 mmol/L [facility] Carbon Dioxide 28 22 - 29 mmol/L [facility] Anion Gap 9(L) 12 - 20 [facility] Urea Nitrogen (BUN) 11 9 - 16 mg/dL [facility] Creatinine, Serum 0.79 0.5 - 1.4 mg/dL [facility] Estimated Glomerular Filt Rate >60 [facility] Comment:Chronic Kidney Disea se: Estimated GFR < 60 mL/min/1.57x8Mxjwki Kidney Disease: Estimated GFR < 15 mL/min/1.73m2 Glucose 81 60 - 115 mg/dL [facility] Calcium 9.1 8.4 - 10.2 mg/dL [facility] 01/14/2025 10:2 9 AM EDT 01/14/2025 10:29 AM EDT us Generic External Data Provider LAB BLOOD ORDERAB LES Final Result Performing Organization Address City/[facility]/ZIP Co de Phone Number [facility] [address] [place] [phone] * Vitamin D, 25-Hydroxy, Total, Immunoassay (12/22/2024 8:37 AM EDT) Vitamin D 25-OH Total 44.0 >30 ng/mL [facility] Comment: Health Based Reference Values*< 20 ??ng/mL ??Rqhyhtlcp13-21 ng/mL ??Insufficient> 30 ??ng/mL ??Sufficient*Rosie MIRANDA. N [...] Otoole MD LAB BLOOD ORDERABLES Final Result [facility] [address] [place] [phone] * Vitamin B12/Folate, Serum Panel (12/22/2024 8:37 AM EDT) Vitamin B12 833 200 - 900 pg/mL [facility] Comment:NORMAL 200-900 PG/ML INDETERMINATE 160-199 PG/ML DEFICIENT < 160 PG/ML Folate 13.8 > or = 4.0 ng/mL [facility] Comment:Reference Values:> o r [...] BLOOD ORDERABLES Final Result Performing Organization Address [facility] Co de Phone Number [facility] [address] [place] [phone] * TSH W/Reflex to FT4 (12/22/2024 8:37 AM EDT) TSH reflex Free T4 1.65 0.32 - 4.0 uIU/mL [facility] Blood Venous blood specimen / Unknown 12/22/2024 8:37 AM EDT 12/22/2024 11:05 AM EDT us Teena Otoole MD LAB BLOOD ORDERABLES Final Result Performing Organization Address [facility] Co de Phone Number [facility] [address] [place] [phone] * Lipid Panel, Standard (12/22/2024 8:37 AM EDT) Triglycerides 61 <150 mg/dL [facility] Comment:Desirable Triglyceri de: less than 150 mg/dLBorderline High Triglyceride 150-199 mg/dLHigh Triglyceride: 200-499 mg/dLVery High Triglyceride: greater than or equal to 5OO mg/dL Cholesterol 155 <200 mg/dL [facility] Comment:Desirable Cholestero l: less than 200 mg/dLBorderline High Cholesterol: 200-239 mg/dLHigh Cholesterol: greater than 239 mg/dL LDL Cholesterol Calculated 89 <100 mg/dL [facility] Comment:Desirable LDL: less than 100 mg/dLNear Optimal/Above Optimal LDL: 110- 129 mg/dLBorderline High LDL: 130-159 mg/dLHigh LDL: 160-189 mg/dLVery High LDL: greater than or equal to 190 mg/dL HDL Cholesterol 54 >40 mg/dL [facility] Comment:Desirable HDL: great er than 40 mg/dL Note: This HDL assay may give artificially low results in patients with liver disease. Blood Venous blood specimen / Unknown 12/22/2024 8:37 AM EDT 12/22/2024 11:05 AM EDT us Teena Otoole MD LAB BLOOD ORDERABLES Final Result [facility] [address] [place] [phone] * BI Mammogram Screening Tomosynthesis Bilateral (09/01/2024 11:55 AM EST) Anatomical Region Laterality Modality Breast Bilateral Mammography 09/01/2024 11:5 5 AM EST Narrative 09/07/2024 3:10 PM EST ? [facility] [place] ? [address] ?[place] [address] ? Mammography Report ? Signed ? Patient: Garcia,Dara ?MR#: [id number] ?? 47 ? : 1980 ?Acct:[id number] ? Age/Sex: 44 / F ?ADM Date: //24 ? Loc: HO.MAMMO ? Attending Dr: Teena Otoole MD ? Ordering Physician: Teena Castillo MD ?Results: ?? 1Negative ? Date of Service: 09/01/ ?Follow Up: 1 Year From Orig ?? inal Mammogram ? Procedure(s): MM tomosynthesis screening BI ?? Accession Number(s): [id number] ? cc: Teena Castillo MD ? EXAMINATION: [...] ??Liudmila Erickson DO ??09/07/2024 03:07 PM EST ? Dictated By: ?Liudmila Erickson DO ? Signed By: ?<Electronically signed by Liudmila Erickson, DO in OV> ? 09/07/24 1507 ? DD/ 1155 ? TD/TT: 09/01/24 1205 ? Fan Mail Clerk: ? Procedure Note Ilda [place] - 09/07/2024 [place] [facility] [address] [place] [address] Mammography Report Signed Patient: Betty GarciaZain#: [id number] 47 : 1980Acct:[id number] Age/Sex: 44 / FADM Date: 09/01/24 Loc: HO.MAMMO Attending Dr: Teena Otoole MD Ordering Physician: Teena Castillo MDResults: 1Negative Date of Service: 09/01/24Follow Up: 1 Year From Orig inal Mammogram Procedure(s): MM tomosynthesis screening BI Accession Number(s): [id number] cc: Teena Castillo MD EXAMINATION: MM SCREENING [...] by: Liudmila Erickson DO 09/07/2024 03:07 PM [facility] Dictated By: Liudmila Erickson DO Signed By: <Electronically signed by Liudmila Erickson DO in OV> 09/07/24 1507 DD/ 1155 TD/TT: 09/01/24 1205 Fan Mail Clerk: us Teena Otoole MD IMG BI PROCEDURES Fin al Result * Hepatitis C Antibody with Reflex to HCV, RNA, Quantitative, Real-Time PCR (02/11/2024 6:14 AM EDT) Hepatitis C Antibody Nonreactive Nonreactive [facility] Comment:Antibodies to HCV no t detected; does not exclude early acuteHCV infection. Blood Venous blood specimen / Unknown 02/11/2024 6:14 AM EDT 02/11/2024 6:14 AM EDT us Teena Otoole MD LAB BLOOD ORDERABLES Final Result Performing Organization Address [facility]/ZIP Co de Phone Number [facility] [address] [place] [phone] * HPV mRNA E6/E7 w/Reflex to HPV Genotypes 16, 18/45 (05/01/2023 12:00 AM EDT) HPV nRNA E6/E7 Not Detected Not Detected [facility] Comment:Methodology: Transcr iption-Mediated AmplificationThis assay detects E6/E7 viral messenger RNA (mRNA) from 14high-risk HPV types (16,18,31,33,35,39,45,51,52,56,58,59,66,68).Cervical sources are required for HPV testing.If a vaginal source from a patient who has had atotal hysterectomy with removal of cervix wassubmitted, please contact the testing laboratoryfor alternative testing options.For additional information, please refer [email or web address].[employer]/faq/QSE076y0(This link if provided for information/educational purposes only.)THIS TEST WAS PERFORMED AT:[facility] [place] [phone] JUÁREZ MD HPV mRNA E6/E7 TNP [facility] HPV 16 RNA [facility] HPV 18/45 RNA [facility] 05/01/2023 05/02/2023 10: 15 AM EDT us Rachel Gaytan CNM LAB CYTOLOGY ORDERABLES F inal Result Performing Organization Address [facility]/ZIP Co de Phone Number [facility] [address] [place] [phone] * Pap Smear (05/01/2023 12:00 AM EDT) 05/01/2023 05/02/2023 10: 15 AM EDT Narrative [facility] - 05/24/2023 4:11 PM EDT ----- ------- Name: Dara Garcia ? Age/Sex: 42/F ? : 1980 Unit#: [id number] ?? Attend Dr: RACHEL GAYTAN CNM ?Re05/01/23 ?Status: DEP REF ? Location: HO.HHCLNP ? Disch: ? ----- ------- SPEC : [id number] ?RECD: 05/02/23-1015 ? STATUS: ??SOUT ? REQ NUM: [id number] ? SUDARSHAN: 05/01/23-0000 ? SUBM DR: RACHEL [...] 66, 68) ? HPV testing performed by [facility], [place], [place]. ??See reference laboratory ?? portion of the EMR for entire report. ?Clinical Information LMP:Unknown date Previous PAP test:Unknown date/findings ? Material Received ?? ThinPrep-Cervical ----- ------- Signed (signature on file) Meseret Lamas Idalmis 05/24/23 1611 ? ----- ------- ? END OF REPORT ? Rachel Gaytan [facility] CYTOLOGY ORDERABLES F inal Result [facility] [address] [place] [phone] from Last 3 Months or Most Recently Relevant to Health Maintenance Insurance D[facility] MEDICA[employer] STAND ADULT Care Teams Music Coordinator Relationship Specialty Start Date End Date Teena Castillo MD [address] [place] [phone] PCP - General Family Medicine 03/18/19
--- OUTSIDE RECORDS SUMMARY | 2025-02-11 14:20 | XMS_ITS | Encounter Summary ---
Author Organization [employer] Address [address] [place] [address] Care Team Providers Care Aerologist Name Role Phone Teena Castillo MD Primary Care Provide r Encounter Details Date Type Department Care Team ([facility] st Contact Info) Description 02/09/2025 Patient Outreach [facility] [address] [place], [place] [phone] Teena Castillo MD [address] [place] [address] Social History Tobacco Use Types Packs/Day Years [...] Description 02/17/2025 1:00 PM EDT Office Visit [facility] [address] [place] [phone] Teena Castillo MD [address] [place] [address] 02/23/2025 9:00 AM EDT Office Visit [facility] ADULT DENTAL [address] [place] [address] Jill Georgematthewet [address] [place] [address] 04/29/2025 10:00 AM EDT Office Visit [facility] [address] [place] [address] Sean Lyles MD [address] [place] [phone] documented as of this encounter Visit Diagnoses Not on filedocumented in this encounter Additional Health Concerns Assessment Noted Time PHQ-9 Depression Total Score: 17 025 3:24 PM EST documented as of this encounter Care Teams Aerologist Relationship Specialty Start Date End Date Teena Castillo MD [address] [place] [address] PCP - General Family Medicine 03/18/19 documented as of this encounter
--- OUTSIDE RECORDS SUMMARY | 2025-02-11 14:20 | XMS_ITS | Encounter Summary ---
Author Organization [employer] Address [address] [place] [address] Care Team Providers Care Cap Inspector Name Role Phone Teena Castillo MD Primary Care Provide r Reason for Visit * Reason Comments Filling Caries control #12, #13 (restorative) Encounter Details Date Type Department Care Team ([facility] st Contact Info) Description 01/31/2025 1:00 PM EDT Office Visit [facility] ADULT DENTAL [address] [place] [address] Sara Melchor [address] [place] [address] Social History Tobacco Use Types Packs/Day Years [...] Pressure 120/80 01/31/2025 1:11 PM EDT Pulse - - Temperature - - Respiratory Rate - - Oxygen Saturation - - Inhaled Oxygen Concentration - - Weight - - Height - - Body Mass Index - - documented in this encounter Progress Notes * Sara Melchor - 01/31/2025 1:00 PM EDT Patient ID: Dara Garcia is a 44 y.o. adult. Time Out: Timeout Date: 01/31/25, Timeout Time: 1311 Location: [facility] Tooth: #12 and #13 Procedure: Taoist Verified the above with patient, licensed physical therapy assistant, and provider. Confirmed via patient's chart, intraorally and by radiographs. Asbestos Pipe Supervisor: Yes. Language: Khmer. Asbestos Pipe Supervisor's Name: Junie Chief Complaint Patient presents with Filling Caries control #12, #13 (restorative) Medical Hx: Vitals: Blood pressure 120/80. Medications, Med Hx reviewed with patient and updated in chart. Consent Obtained: The risks, benefits, indications, potential complications, and alternatives were explained to the patient and informed consent was obtained with good understanding. Treatment Provided: Dental procedures in this visit D9999 - NO CHARGE VISIT Completion details D9999 - NO CHARGE VISIT Caries control done #12, #13 today Diagnosis: caries into dentin in close proximity to pulp #12 DO, #13 MO Pt asymptomatic today. Caries excavation was done today in #12 and #13 as discussed with patient in last visit. Topical: 20% Benzocaine Anesthesia: 4% Septocaine (Articaine) w/ 1:200,000 epinephrine Number of Cartridges: 1 Injection Type: Buccal infiltration and Palatal infiltration Confirmed profound anesthesia. Isolation: high speed suction and cotton rolls and bite block Prep: All caries removed and Preparation finalized Matrix: None Liner/Base: LimeLite and Dycal was placed Carnes: N/A Taoist Material: Ionolux Shade: A1 Polished. Occlusion & contacts verified. Patient satisfied with comfort and esthetics. Patient tolerated procedure well. Post-operative instructions were given. Patient departed alert, oriented, and in stable condition. NOTE- Pt was informed again today before starting the procedure that excavation of existing jewish along with recurrent decay will be done and course of treatment will planned from there on including RCT/post/core/crown/extraction as needed. Pt was also informed that decay is deep in #12 and #13 and is in close proximity to pulp. During the procedure, decay in #12 and #13 was in close proximity to pulp, so planned for RCT/core/crown and #12 planned for extraction since its non- restorable as decay is deep. Pt was informed and pt understood and agreed and receptive to treatment options given. All questions answered. Rx: Amoxicillin 500 mg every 8 hours for 7 days - Pt has pain medications NV: Extraction #12 Assistant Speech Language Pathologist: Eleanor Dentist: Dr. Sara Melchor, DMD documented in this encounter Miscellaneous Notes * Dental Procedure Details - Sara Melchor - 01/31/2025 1:00 PM EDT Caries control done #12, #13 today documented in this encounter Plan of Treatment Upcoming Encounters Date Type Department Care Team (Late st Contact Info) Description 02/17/2025 1:00 PM EDT Office Visit [facility] MEDICINE [address] [place] [address] Teena Castillo MD [address] [place] [address] 02/23/2025 9:00 AM EDT Office Visit [facility] CHC ADULT DENTAL [address] [place] [address] Mitch Melchorpreet [address] [place] [address] 04/29/2025 10:00 AM EDT Office Visit [facility] MEDICINE [address] [place] [address] Sean Lyles MD [address] [place], [place] Scheduled Orders Name Type Priority Associated Diagnoses Orde r Schedule 13 13 ENDODONTIC THERAPY, PREMOLAR TOOTH Dental Routine 1 Occurr ences starting 01/31/2025 13 13 CROWN PREP Dental Routine 1 Occurr ences starting 01/31/2025 13 13 CORE BUILDUP, INCL ANY PINS WHEN REQ Dental Routine 1 Occurrences starting 01/31/2025 13 13 CROWN - PORCELAIN/CERAMIC Dental Routine 1 Occurrences starting 01/31/2025 documented as of this encounter Procedures Procedure Name Priority Date/Time Associated Diagnosis Comments NO CHARGE VISIT Routine 01/31/2025 1:00 PM EDT documented in this encounter Visit Diagnoses Not on filedocumented in this encounter Additional Health Concerns Assessment Noted Time PHQ-9 Depression Total Score: 17 11/23/2 025 3:24 PM EST documented as of this encounter Care Teams Cap Inspector Relationship Specialty Start Date End Date Teena Castillo MD [address] [place] [phone] PCP - General Family Medicine 03/18/19 documented as of this encounter
--- OUTSIDE RECORDS SUMMARY | 2025-02-11 14:20 | XMS_ITS | Encounter Summary ---
Author Organization [employer] Address [address] [place] [address] Care Team Providers Care Pedigree Researcher Name Role Phone Teena Castillo MD Primary Care Provide r Encounter Details Date Type Department Care Team (Late st Contact Info) Description 02/06/2023 Orders Only [facility] MED & PEDS [address] [place] [address] Melly Mccloud LPN Social History Tobacco Use [...] Description 02/17/2025 1:00 PM EDT Office Visit [facility] [address] [place] [address] Teena Castillo MD [address] [place] [address] 02/23/2025 9:00 AM EDT Office Visit [facility] ADULT DENTAL [address] [place] [address] Sara Melchor [address] [place] [address] 04/29/2025 10:00 AM EDT Office Visit [facility] [address] [place] [address] Sean Lyles MD [address] [place] [address] documented as of this encounter Visit Diagnoses Not on filedocumented in this encounter Care Teams Pedigree Researcher Relationship Specialty Start Date End Date Teena Castillo MD [address] [place] [phone] PCP - General Family Medicine 03/18/19 documented as of this encounter
--- OUTSIDE RECORDS SUMMARY | 2025-02-11 14:20 | XMS_ITS | Encounter Summary ---
Author Organization [employer] Address [address] [place] [address] Care Team Providers Care Coal And Ash Supervisor Name Role Phone Teena Castillo MD Primary Care Provide r Reason for Visit * Reason Comments Med Refill Encounter Details Date Type Department Care Team ([facility] st Contact Info) Description 08/11/2023 Refill [facility] MED & PEDS [address] [place], [place] [phone] Nahid Mak MD [address] [place] [address] Essential hypertension Social History Tobacco Use Types [...] PM EDT Office Visit [facility] [address] [place] [address] Teena Castillo MD [address] [place] [address] 02/23/2025 9:00 AM EDT Office Visit [facility] ADULT DENTAL [address] [place] [address] Melchor Georgehonoriopreet [address] [place] [address] 04/29/2025 10:00 AM EDT Office Visit [facility] [address] [place] [address] Sean Lyles MD [address] [place] [address] documented as of this encounter Visit Diagnoses Diagnosis Essential hypertension Unspecified essential hypertension documented in this encounter Additional Health Concerns Assessment Noted Time PHQ-9 Depression Total Score: 0 04/04/20 23 2:14 PM EDT documented as of this encounter Care Teams Coal And Ash Supervisor Relationship Specialty Start Date End Date Teena Castillo MD [address] [place] [address] PCP - General Family Medicine 03/18/19 documented as of this encounter
[2025-02-15 13:38] LABS: Anti DNA DS Antibody <1 IU/mL
[2025-02-15 14:13] LABS: Histone Antibody <1.0 U (<1.0)
[2025-02-18 11:38] LABS: Anti Nuclear Antibody Pattern Nuclear, Speckled; Anti Nuclear Antibody Screen POSITIVE (NEGATIVE)
== END 2025-02-11 14:17 | disposition home or self-care (01) ==
LOC: HO.HHCL 14:16
PROVIDERS: Visit Provider Internal Medicine
DX: R21 Rash and other nonspecific skin eruption (principal)
CPT/HCPCS: 36415; 83516; 86038; 86039; 86225

== ENCOUNTER 2025-02-15 13:29 | Outpatient (AMB) | payer MEDICAID, SELFPAY ==
[2025-02-15 14:09] VITALS: BP 99/72; PULSE 87; BMI 34.4
--- NOTE | 2025-02-15 14:09 | MHC.OFFVIS ---
Vital Signs 02/15/25 14:09 Height 5 ft 3 in Weight 194 lb 0.108 oz BMI 34.4 BP 99/72 Blood Pressure Location Lt brachial Position Sitting Pulse 87 Pulse Source Pulse Oximeter Intake Visit Reasons: fu testing [facility] ed fu (HS) Employee Placement Specialist Required: Yes Employee Placement Specialist Name: voice pineda [phone] Smelting Engineer: Smelting Engineer Present Allergies No Known Allergies Allergy (Verified 02/15/25 14:11) Medication List - Last Reconciled 02/15/25 by Augustine Ag NP acetaminophen 500 mg PO Q6H PRN amlodipine 10 mg PO DAILY amoxicillin 500 mg PO Q8H aspirin (Adult Aspirin Regimen) 81 mg PO DAILY atorvastatin 40 mg PO DAILY baclofen 10 mg PO TID buspirone 10 mg PO TID chlorhexidine gluconate 0.12% 15 mL PO BID cholecalciferol (vitamin D3) (Vitamin D3) 25 mcg PO DAILY duloxetine 60 mg PO DAILY duloxetine 20 mg PO DAILY enoxaparin 80 mg (0.8 mL) subcut Q12H ferrous sulfate (FeroSul) 325 mg PO DAILY hydralazine 25 mg PO TIDWM ibuprofen 600 mg PO Q6H PRN losartan 100 mg PO DAILY meclizine 50 mg PO BID PRN metoprolol succinate ER 50 mg PO DAILY mirtazapine 7.5 mg PO BEDTIME multivitamin 1 tab PO DAILY nitroglycerin (Nitrostat) 0.4 mg sublingual Q5MX3 PRN tirzepatide (weight loss) (Zepbound) mg subcut QWEEK vitamin B complex-folic acid 0.4 mg (B Complex 1 (with folic acid)) 1 tab PO DAILY HPI Comments Details: This is a 44-year-old female patient presenting for a follow-up visit, accompanied by her . A interpreter and translator was used throughout the visit. The patient has a history of hypertension and obesity and was previously evaluated in the office for shortness of breath and palpitations. She subsequently underwent an echocardiogram, which was abnormal and therefore was planned for an outpatient cardiac catheterization. However due to an episode of chest pain at rest, the patient presented to the ER and was transferred to [facility] where she underwent the cardiac catheterization. Today, patient reports ongoing symptoms including palpitations, persistent fatigue, and intermittent chest pain. She notes that she frequently wakes up at night with palpitations. The patient reports adherence to all her prescribed medications. Additionally, she mentions that during her recent dermatology visit, there was concerns about possible lupus due to skin pigmentation changes. She has lab work pending from them. FORMERLY [facility], [facility] Medical History Steatosis, liver BMI 38.0-38.9,adult BMI 39.0-39.9,adult Obesity Vitamin A deficiency H. pylori infection GERD (gastroesophageal reflux disease) Obstructive sleep apnea on CPAP Morbid obesity Excessive daytime sleepiness Anemia Bipolar 1 disorder Depression Arthritis Migraine Fibromyalgia Sleep apnea Vertigo HTN (hypertension) Surgical History S/P laparoscopic sleeve gastrectomy Hx of tubal ligation Hx of section Family History Mother Hypertension Heart problem Arthritis Diabetes Pacemaker Father Vitiligo Sister No problems noted. Sister No problems noted. Sister No problems noted. Sister No problems noted. Sister No problems noted. Brother No problems noted. Brother No problems noted. Son No problems noted. Son No problems noted. Social History Household Members: Spouse and Children Are you a primary manager career to a significant other at home: No Do you presently have visiting nurse or other home services: No Alcohol intake: current Alcohol intake frequency: does not drink Patient Tobacco Use Status: Never used Tobacco service: No Current occupational status: disabled Review of Systems ENT Reports dizziness Card Denies chest pain, Denies chest pain at rest, Denies chest pain with activity, Denies rapid heart rate, Denies pedal edema, Denies edema, Denies leg edema, Denies lightheadedness, Denies palpitations, Denies dyspnea, Denies dyspnea on exertion and Denies orthopnea Resp Denies cough, Denies dyspnea and Denies dyspnea on exertion GI Denies hematochezia and Denies change in stool character Musc Denies abnormal gait, Reports limited range of motion, Reports muscle cramps, Denies muscle weakness, Denies numbness, Denies radiating pain into limb, Denies stiffness and Denies tingling Neuro Denies abnormal gait, Reports dizziness, Denies numbness and Denies tingling Endo Denies palpitations Physical Exam Vital Signs: Last Vital Signs Pulse 87 02/15/25 14:09 BP 90/72 02/15/25 14:09 BMI result Body Mass Index 34.4 Const General: cooperative, healthy appearing, comfortable and no acute distress Orientation/consciousness: patient oriented x3 HEENT Head: Yes normal to inspection Neck Neck: Yes normal visual inspection, Yes trachea midline and Yes supple Chest Chest palpation & inspection: normal inspection of the chest Resp Effort & Inspection: normal respiratory effort Auscultation: clear to auscultation bilaterally, no crackles, no rales, no rhonchi and no wheezes Cardio Jugular venous distension: no JVD Palpation: normal PMI Rate: regular rate Rhythm: regular rhythm Heart sounds: S1 normal heart sound present, S2 normal heart sound present, no click, no gallops, no murmurs and no rubs Peripheral pulses: Peripheral pulses 2+ throughout GI Inspection: Yes normal to inspection Palpation (GI): Soft to palpation Auscultation: normal bowel sounds Skin General skin exam: no rashes or lesions noted Neuro General: patient oriented x3 Extrem General: Yes normal to inspection, No no pedal edema and No calf tenderness Psych Appearance: grossly normal Mental Status: mental status grossly normal Speech and movement: Normal speech and movement present Assessment & Plan Assessment & Plan (1) Chest pain: Code(s): R07.9 - Chest pain, unspecified Category: Medical (2) Palpitations: Code(s): R00.2 - Palpitations (3) Fatigue: Code(s): R53.83 - Other fatigue Category: Medical (4) HTN (hypertension): Code(s): I10 - Essential (primary) hypertension Category: Medical (5) Obstructive sleep apnea on CPAP: Code(s): G47.33 - Obstructive sleep apnea (adult) (pediatric); Z99.89 - Dependence on other enabling machines and devices Category: Medical (6) Status post cardiac catheterization: Code(s): Z98.890 - Other specified postprocedural states (7) Hospital discharge follow-up: Code(s): Z09 - Encounter for follow-up examination after completed treatment for conditions other than malignant neoplasm Plan 01/04/2025-Holter study showed baseline normal sinus rhythm with average heart rate of 79 beats per minute, we will occasional PVCs noted burden of 0.4%. 01/04/2025-patient underwent an echo study that showed a mildly decreased LV systolic function at 50% with akinetic basal inferior segment and hypokinetic inferoseptal wall, mid inferior as well as basal inferolateral segments. 01/26/2025-patient underwent a cardiac catheterization with Dr. Lira at [facility] that showed no significant coronary artery disease. Right wrist catheterization site is well healed. Patient continues to report ongoing symptoms of palpitations, fatigue, and intermittent chest pain. Despite normal coronary anatomy, regional wall abnormalities and mildly reduced EF on echo warrants a further evaluation. Therefore we will do a cardiac MRI to evaluate for myocardial structure, scarring, or potential inflammatory causes. Her palpitations maybe multifactorial potentially related to PVCs, anxiety, or panic episodes. Continue current regimen. Emphasize heart healthy diet, regular exercise, adequate hydration, med compliance, stress medication strategies, and weight loss management. We will follow up following the test. In the interim, patient will call the office with any concerns or change in symptoms. This note was generated using voice recognition software. While every effort has been made to ensure accuracy and proper cover assembler, there may be occasional errors that could affect the content or meaning of the described symptoms. Orders: Orders MR cardiac morph fnct w/wo con Today R07.9 - Chest pain, unspecified, R53.83 - Other fatigue Basic Metabolic Panel Today R53.83 - Other fatigue Coding Level of Care Code Est Pt Level 4 (30298) Complex EM visit Add On G2211 Diagnoses Chest pain R07.9 Palpitations R00.2 Fatigue R53.83 HTN (hypertension) I10 Obstructive sleep apnea on CPAP G47.33; Z99.89 Status post cardiac catheterization Z98.890 Hospital discharge follow-up Z09 Time Spent (min) 35 Comment Time spent in reviewing the chart, test results, assessment, counseling and documentation.
--- OUTSIDE RECORDS SUMMARY | 2025-02-15 14:40 | XMS_ITS | Encounter Summary ---
Author Organization [employer] Address [address] [facility] 7 [place] [address] Care Team Providers Care Study Hall Supervisor Name Role Phone Teena Castillo MD Primary Care Provide r Encounter Details Date Type Department Care Team (Late st Contact Info) Description 02/06/2023 Orders Only [facility] MED & PEDS [address] [place] [address] Melly Mccloud LPN Social History Tobacco Use [...] Description 02/17/2025 1:00 PM EDT Office Visit [facility] MEDICINE [address] [place] [address] Teena Castillo MD [address] [place] [address] 02/23/2025 9:00 AM EDT Office Visit [facility] ADULT DENTAL [address] [place] [address] Sara Melchro [address] [place] [address] 04/29/2025 10:00 AM EDT Office Visit [facility] MEDICINE [address] [place] [address] Sean Lyles MD [address] [place] [address] documented as of this encounter Visit Diagnoses Not on filedocumented in this encounter Care Teams Study Hall Supervisor Relationship Specialty Start Date End Date Teena Castillo MD [address] [place] [address] PCP - General Family Medicine 03/18/19 documented as of this encounter
--- OUTSIDE RECORDS SUMMARY | 2025-02-15 14:40 | XMS_ITS | Clinical Summary ---
Author Organization [employer] Address [address] [place] [address] Care Team Providers Care Addiction Psychiatrist Name Role Phone Teena Castillo MD Primary [...] (BMI) of 37.0 to 37.9 in adult ([facility]) Inject 0.5 mL (10 mg) under [...] (BMI) of 37.0 to 37.9 in adult ([facility]) Inject 7.5 mg under the [...] Description 02/11/2025 2:15 PM EDT Office Visit [address] [address] Sean Lyles MD Melasma (Primary Dx); Rash 02/11/2025 Travel 02/09/2025 9:00 AM EDT Office Visit [facility] CHC ADULT DENTAL [address] [place] [address] Sara Melchor 02/09/2025 Patient Outreach [address] [address] Teena Castillo MD 02/09/2025 Patient Outreach [address] [phone] Teena Castillo MD Pre-visit Planning ((Unable to reach for PVP screening, LVM)) 02/08/[address] [address] Teena Castillo MD Essential hypertension 02/08/2025 Patient Outreach [address] [address] Teena Castillo MD 02/08/2025 Refill [facility] [address] [place] [address] Teena Castillo MD Vitamin deficiency; Fibromyositis; Essential hypertension 02/07/2025 Orders Only [facility] External Provider, [facility] 02/01/2025 Orders Only GENERIC EXTERNAL DATA DEPARTMENT Provider, Generic External Data 02/01/2025 Patient Outreach [facility] MEDICINE [address] [place] [phone] Teena Castillo MD 01/31/2025 1:00 PM EDT Office Visit [facility] ADULT DENTAL [address] [place] [address] Mitch Melchorluis a 01/28/2025 Patient Outreach [address] [address] Teena Castillo MD Care Coordination (CM/CHW outreach) 01/27/2025 Patient Outreach [address] [address] Teena Castillo MD 01/27/2025 Patient Outreach [facility] MEDICINE [address] [place] [phone] Teena Castillo MD Transition Of Care (Tcm) (HDF unscheduled) 01/27/2025 Patient Outreach [address] [address] Teena Castillo MD 01/27/2025 Patient Outreach [address] [address] Teena Castillo MD 01/26/2025 Patient Outreach [facility] MED[facility] [address] [place] [phone] Teena Castillo MD 01/26/2025 Patient Outreach [facility] MEDICINE [address] [place] [address] Teena Castillo MD 01/26/2025 Patient Outreach [facility] MEDICINE [address] [place] [phone] Teena Castillo MD 01/26/2025 Patient Outreach [address] [address] Teena Castillo MD Care Coordination (W chart review) 01/26/2025 Patient Outreach [address] [address] Teena Castillo MD Care Management ([facility]- chart review) 01/26/2025 Patient Outreach [address] [address] Teena Castillo MD 01/25/2025 Orders Only GENERIC EXTERNAL DATA DEPARTMENT Provider, Generic External Data 01/21/[address] [address] Teena Castillo MD Class 2 severe obesity due to excess calories with serious comorbidity and body mass index (BMI) of 37.0 to 37.9 in adult (CMS/[facility]) 01/20/2025 11:30 AM EDT Office Visit [facility] ADULT DENTAL [address] [place] [address] Mitch Melchorluis a 01/14/2025 Orders Only GENERIC EXTERNAL DATA DEPARTMENT Provider, Generic External Data 12/24/[address] [address] Teena Castillo MD TELEPHONE CALL 12/22/[address] [address] Teena Castillo MD Prior Auth Prescription; Prior Authorization ( PA Request: [employer]) 12/21/[address] [phone] Teena Castillo MD Call Back Request 12/20/2024 Orders Only [address] [address] Teena Castillo MD Morbid obesity ([facility]) (Primary Dx); Class 2 severe obesity due to excess calories with serious comorbidity and body mass index (BMI) of 37.0 to 37.9 in adult (CMS/HCC) 12/20/2024 Telephone [facility] MEDICINE [address] [place] [address] Teena Castillo MD Medication Question 12/10/2024 Population Health Risk Score [facility] (C3) Department [address] [place] [phone] Provider, Population Health Generic 11/23/2024 3:15 PM EST Office Visit [facility] MEDICINE [address] [place], [place] [phone] Teena Castillo MD Dyspnea on exertion (Primary Dx); Essential hypertension 11/23/2024 Travel 11/18/2024 Telephone [facility] MEDICINE [address] [place], [place] [phone] Teena Castillo MD Chart Prep from Last [...] Description 02/17/2025 1:00 PM EDT Office Visit [facility] MEDICINE [address] [place] [address] Teena Castillo MD [address] [place] [address] 02/23/2025 9:00 AM EDT Office Visit [facility] CHC ADULT DENTAL [address] [place] [address] Sara Melchor [address] [place] [address] 04/29/2025 10:00 AM EDT Office Visit [facility] MEDICINE [address] [place] [address] Sean Lyles MD [address] [place] [address] Health Maintenance Due Date Last Done Comments Dental Oral Exam 1980 Dental Prophylaxis 1980 Dental X-Ray: Full Mouth 1980 HIV Screening 1980 Disability Screening 1980 Family Planning (PISQ) 1996 Hepatitis [...] HPV/Cotest 05/01/2028 05/01/2023 Lipid Panel 12/22/2029 12/22/2024, 0504/2024, 06/21/2023 Zoster Vaccines (1 of 2) 2031 [...] Procedure Name Priority Date/Time Associated Diagnosis Comments DNA (DS) ANTIBODY Routine 02/11/2025 2:2 2 PM EDT Rash CASE PRESENTATION, DETAILED AND EXTENSIVE TREATMENT PLANNING [...] Recently Relevant to Health Maintenance Results * DNA (ds) Antibody (02/11/2025 2:22 PM EDT) Pathologist [facility] Anti DNA DS Antibody <1 IU/mL [facility] Comment:IU/mL Interpretation < or = 4 Negative 5-9 Indeterminate > or = 10 PositiveTHIS TEST WAS PERFORMED AT:[employer] [place] [phone] JUÁREZ MD Blood Venous blood specimen / Unknown 02/11/2025 2:22 PM EDT 02/11/2025 4:12 PM EDT us Sean Lyles MD LAB BLOOD ORDERABLES Final Re sult Performing Organization Address [facility] de Phone Number [facility] [address] [place] [phone] * High Sensitivity Troponin I (02/07/2025 1:28 PM EDT) Only the most recent of2 resultswithin the time period is included. Pathologist [facility] TROPONIN I HIGH SENSITIVITY <2.7 <3.5 - 17.0 ng/L [facility] Comment:The Casas high sens itivity Troponin-I results should beused in conjunction with other diagnostic information suchas ECG, clinical observations and information, and patientsymptoms to aid in the diagnosis of CT. 02/07/2025 1:28 PM EDT 02/07/2025 1:30 PM EDT us Generic External Data Provider LAB BLOOD ORDERAB LES Final Result [facility] [address] [place] [phone] * SARS-CoV-2 RNA, Influenza A/B, and RSV RNA, Ql NAAT (02/07/2025 1:28 PM EDT) Influenza A PCR NEGATIVE Negative [facility] Influenza B PCR NEGATIVE Negative [facility] Resp Syncy Virus RNA Qual PCR NEGATIVE Negative [facility] SARS COV2 PCR NEGATIVE Negative [facility] Comment:All test results mus t [...] use by authorized laboratories.Testing performed on the [employer] GeneXpert utilizingreal-time RT-PCR.All SARS CoV2 and positive influenza A/B results arereported to [facility]. 02/07/2025 1:28 PM EDT 02/07/2025 1:30 PM EDT Generic External Data Provider LAB MICROBIOLOGY - GENERAL ORDERABLES Final Result Performing Organization Address [facility]/State/ZIP Co de Phone Number [facility] [address] [place] [phone] * (ABNORMAL) CBC auto differential (02/07/2025 1:28 PM EDT) Only the most recent of3 resultswithin the time period is included. White Blood Count 6.8 4.8 - 10.8 X10*3/uL [facility] Red Blood Count 5.17 4.20 - 5.50 X10*6/uL [facility] Hemoglobin 13.6 12.0 - 16.0 g/dl [facility] Hematocrit 42.4 37.0 - 47.0 % [facility] Mean Corpuscular Volume 82.0 80.0 - 98.0 fL [facility] Mean Corpuscular Hemoglobin 26.3(L) 27.0 - 33.0 pg [facility] Mean Corpuscular HGB Conc 32.1 31.0 - 35.0 g/dl [facility] Red Cell Distribution Width 14.2 11.0 - 16.0 % [facility] Platelet Count 271 160 - 400 X10*3/uL [facility] Mean Platelet Volume 9.5 9.4 - 12.3 fL [facility] Neutrophils Percent Auto 63.7 45 - 73 % [facility] Imm Gran Pct Auto 0.3 0.0 - 0.4 % [facility] Lymphocytes Percent Auto 25.0 20 - 40 % [facility] Monocytes Percent Auto 8.5 2 - 11 % [facility] Eosinophils Percent Auto 1.6 0 - 4 % [facility] Basophils Percent Auto 0.9 0 - 2 % [facility] NRBC Pct Auto 0.0 0.0 - 0.2 /100WBC [facility] Neutrophils Absolute Auto 4.3 2.0 - 8.3 x10*3/uL [facility] Imm Gran Abs Auto 0.02 0.00 - 0.03 X10*3/uL [facility] Lymphocytes Absolute Auto 1.7 1.2 - 4.9 X10*3/uL [facility] Monocytes Absolute Auto 0.6 0.1 - 1.2 X10*3/uL [facility] Eosinophils Absolute Auto 0.1 0.0 - 0.4 X10*3/uL [facility] Basophils Absolute Auto 0.1 0.0 - 0.2 X10*3/uL [facility] NRBC Abs Auto 0.000 0.0 - 0.012 X10*3/uL [facility] 02/07/2025 1:28 PM EDT 02/07/2025 1:30 PM EDT us Generic External Data Provider LAB BLOOD ORDERAB LES Final Result Performing Organization Address City/[facility]/ZIP Co de Phone Number [facility] [address] [place] [phone] * Lipase (02/07/2025 1:28 PM EDT) Lipase 30 8 - 78 U/L [facility] 02/07/2025 1:28 PM EDT 02/07/2025 1:30 PM EDT Generic External Data Provider LAB BLOOD ORDERAB LES Final Result Performing Organization Address [facility] Co de Phone Number [facility] [address] [place] [phone] * Comprehensive Metabolic Panel (02/07/2025 1:28 PM EDT) Only the most recent of3 resultswithin the time period is included. Pathologist [facility] Sodium 140 135 - 145 mmol/L [facility] Potassium 3.6 3.3 - 5.1 mmol/L [facility] Chloride 105 96 - 108 mmol/L [facility] Carbon Dioxide 27 22 - 29 mmol/L [facility] Anion Gap 12 12 - 20 [facility] Urea Nitrogen (BUN) 10 9 - 16 mg/dL [facility] Creatinine, Serum 0.82 0.5 - 1.4 mg/dL [facility] Creatinine Clr Calc Pharmacy 92.6 [facility] Comment:Provided height and weight: 160.02 cm,87.2 kg.eGFR (calculated from the MDRD study equation) and eCrCl(calculated from the Cockcroft-Gault equation) are based ondifferent parameters and may not yield comparable results.If eCrCl result is absurd, please check patient'sheight/weight. Estimated Glomerular Filt Rate >60 [facility] Comment:Chronic Kidney Disea se: Estimated GFR < 60 mL/min/1.85m0Xuqvad Kidney Disease: Estimated GFR < 15 mL/min/1.73m2 Glucose 87 60 - 115 mg/dL [facility] Calcium 9.6 8.4 - 10.2 mg/dL [facility] Bilirubin, Total 0.3 0.0 - 1.0 mg/dL [facility] Aspartate Amino Transferase 20 5 - 31 U/L [facility] Alanine Aminotransferase 19 0 - 31 U/L [facility] Total Protein 6.9 6.5 - 8.0 g/dL [facility] Albumin Level 3.7 3.5 - 5.0 g/dL [facility] Alkaline Phosphatase 72 39 - 117 U/L [facility] 02/07/2025 1:28 PM EDT 02/07/2025 1:30 PM EDT us Generic External Data Provider LAB BLOOD ORDERAB LES Final Result Performing Organization Address City/State/[facility] Co de Phone Number [facility] [address] [place] [phone] * XR Chest 2 Views (02/07/2025 12:35 PM EDT) Anatomical Region Laterality Modality Chest Radiographic Anyi ging 02/07/2025 12:3 5 PM EDT Narrative 02/07/2025 12:57 PM EDT ? [facility] ?[address] ?[place] [address] ?XRay Report ? Signed ? Patient: Garcia,Dara ?MR#: [id number] ?? 47 ? : 1980 ?Acct:[id number] ? Age/Sex: 44 / F ?ADM Date: 02/07/ ? Loc: HO.ED ? Attending Dr: ? Ordering Physician: Glenn Moise ?? Date of Service: 02/07/25 ?? Procedure(s): XR chest 2V ?? Accession Number(s): [id number] ? cc: Teena Castillo MD; Glenn Moise [...] DD/ 1235 ? TD/TT: 02/07/25 1250 ? Roll Icer: ? Procedure Note Dongoldenter, Image - 02/07/2025 [place] [address] XRay Report Signed Patient: Angi Garcia#: [id number] 47 : 1980Acct:[id number] Age/Sex: 44 / FADM Date: 02/07/25 Loc: HO.ED Attending Dr: Ordering Physician: Glenn Moise Date of Service: 02/07/25 Procedure(s): XR chest 2V Accession Number(s): [id number] cc: Teena Castillo MD; Glenn Moise EXAMINATION: [...] 02/07/25 1254 DD/ 1235 TD/TT: 02/07/25 1250 Roll Icer: [facility] External Provider IMG XR PROCEDURES Final Result * Potassium (02/01/2025 10:29 AM EDT) Pathologist [facility] Potassium 3.4 3.3 - 5.1 mmol/L [facility] 02/01/2025 10:2 9 AM EDT 02/01/2025 10:29 AM EDT Generic External Data Provider LAB BLOOD ORDERAB LES Final Result Performing Organization Address [facility] Co de Phone Number [facility] [address] [place] [address] [phone] * Prothrombin Time-INR (01/14/2025 10:29 AM EDT) Pathologist [facility] Prothrombin Time 12.1 10.9 - 12.4 SEC [facility] INTERNATIONAL NORM RATIO 1.0 0.9 - 1.1 [facility] Comment:INTERNATIONAL NORMAL IZED RATIO (INR) [...] ORDERAB LES Final Result Performing Organization Address [facility] Co de Phone Number [facility] [address] [place] [address] [phone] * (ABNORMAL) CBC (01/14/2025 10:29 AM EDT) Pathologist [facility] White Blood Count 6.2 4.8 - 10.8 X10*3/uL [facility] Red Blood Count 5.05 4.20 - 5.50 X10*6/uL [facility] Hemoglobin 13.3 12.0 - 16.0 g/dl [facility] Hematocrit 41.3 37.0 - 47.0 % [facility] Mean Corpuscular Volume 81.8 80.0 - 98.0 fL [facility] Mean Corpuscular Hemoglobin 26.3(L) 27.0 - 33.0 pg [facility] Mean Corpuscular HGB Conc 32.2 31.0 - 35.0 g/dl [facility] Red Cell Distribution Width 13.5 11.0 - 16.0 % [facility] Platelet Count 241 160 - 400 X10*3/uL [facility] Mean Platelet Volume 9.9 9.4 - 12.3 fL [facility] NRBC Pct Auto 0.0 0.0 - 0.2 /100WBC [facility] NRBC Abs Auto 0.000 0.0 - 0.012 X10*3/uL [facility] 01/14/2025 10:2 9 AM EDT 01/14/2025 10:29 AM EDT us Generic External Data Provider LAB BLOOD ORDERAB LES Final Result [facility] [address] [place] [phone] * (ABNORMAL) Basic Metabolic Panel (01/14/2025 10:29 AM EDT) Sodium 140 135 - 145 mmol/L [facility] Potassium 3.2(L) 3.3 - 5.1 mmol/L [facility] Chloride 106 96 - 108 mmol/L [facility] Carbon Dioxide 28 22 - 29 mmol/L [facility] Anion Gap 9(L) 12 - 20 [facility] Urea Nitrogen (BUN) 11 9 - 16 mg/dL [facility] Creatinine, Serum 0.79 0.5 - 1.4 mg/dL [facility] Estimated Glomerular Filt Rate >60 [facility] Comment:Chronic Kidney Disea se: Estimated GFR < 60 mL/min/1.06n9Stxymu Kidney Disease: Estimated GFR < 15 mL/min/1.73m2 Glucose 81 60 - 115 mg/dL [facility] Calcium 9.1 8.4 - 10.2 mg/dL [facility] 01/14/2025 10:2 9 AM EDT 01/14/2025 10:29 AM EDT us Generic External Data Provider LAB BLOOD ORDERAB LES Final Result [facility] [address] [place] [phone] * Vitamin D, 25-Hydroxy, Total, Immunoassay (12/22/2024 8:37 AM EDT) Vitamin D 25-OH Total 44.0 >30 ng/mL [facility] Comment: Health Based Reference Values*< 20 ??ng/mL ??Ihiymcbkf27-30 ng/mL ??Insufficient> 30 ??ng/mL ??Sufficient*Rosie MIRANDA. N [...] Otoole MD LAB BLOOD ORDERABLES Final Result [facility] [address] [place] [phone] * Vitamin B12/Folate, Serum Panel (12/22/2024 8:37 AM EDT) Vitamin B12 833 200 - 900 pg/mL [facility] Comment:NORMAL 200-900 PG/ML INDETERMINATE 160-199 PG/ML DEFICIENT < 160 PG/ML Folate 13.8 > or = 4.0 ng/mL [facility] Comment:Reference Values:> o r = [...] BLOOD ORDERABLES Final Result Performing Organization Address [facility] Co de Phone Number [facility] [address] [place] [phone] * TSH W/Reflex to FT4 (12/22/2024 8:37 AM EDT) TSH reflex Free T4 1.65 0.32 - 4.0 uIU/mL [facility] Blood Venous blood specimen / Unknown 12/22/2024 8:37 AM EDT 12/22/2024 11:05 AM EDT Teena Otoole MD LAB BLOOD ORDERABLES Final Result [facility] [address] [place] [phone] * Lipid Panel, Standard (12/22/2024 8:37 AM EDT) Triglycerides 61 <150 mg/dL [facility] Comment:Desirable Triglyceri de: less than 150 mg/dLBorderline High Triglyceride 150-199 mg/dLHigh Triglyceride: 200-499 mg/dLVery High Triglyceride: greater than or equal to 5OO mg/dL Cholesterol 155 <200 mg/dL [facility] Comment:Desirable Cholestero l: less than 200 mg/dLBorderline High Cholesterol: 200-239 mg/dLHigh Cholesterol: greater than 239 mg/dL LDL Cholesterol Calculated 89 <100 mg/dL [facility] Comment:Desirable LDL: less than 100 mg/dLNear Optimal/Above Optimal LDL: 110- 129 mg/dLBorderline High LDL: 130-159 mg/dLHigh LDL: 160-189 mg/dLVery High LDL: greater than or equal to 190 mg/dL HDL Cholesterol 54 >40 mg/dL [facility] Comment:Desirable HDL: great er than 40 mg/dL Note: This HDL assay may give artificially low results in patients with liver disease. Blood Venous blood specimen / Unknown 12/22/2024 8:37 AM EDT 12/22/2024 11:05 AM EDT Teena Otoole MD LAB BLOOD ORDERABLES Final Result Performing Organization Address [facility] Co de Phone Number [facility] [address] [place] [phone] * BI Mammogram Screening Tomosynthesis Bilateral (09/01/2024 11:55 AM EST) Anatomical Region Laterality Modality Breast Bilateral Mammography 09/01/2024 11:5 5 AM EST Narrative 09/07/2024 3:10 PM EST ? [facility] ? [address] ?[place] [address] ? Mammography Report ? Signed ? Patient: Garcia,Dara ?MR#: [id number] ?? 47 ? : 1980 ?Acct:[id number] ? Age/Sex: 44 / F ?ADM Date: 09/01/24 ? Loc: HO.MAMMO ? Attending Dr: Teena Otoole MD ? Ordering Physician: Teena Castillo MD ?Results: ?? 1Negative ? Date of Service: 09/01/24 ?Follow Up: 1 Year From Orig ?? inal Mammogram ? Procedure(s): MM tomosynthesis screening BI ?? Accession Number(s): [id number] ? cc: Teena Castillo MD ? EXAMINATION: [...] by Liudmila Erickson, DO in OV> ? /07/22 1507 ? DD/ 1155 ? TD/TT: 09/01/24 1205 ? Roll Icer: ? Procedure Note Cristofer, Image - 09/07/2024 [facility] [address] [place] [address] Mammography Report Signed Patient: Angi Garcia#: [id number] 47 : 1980Acct:[id number] Age/Sex: 44 / FADM Date: 09/01/24 Loc: HO.MAMMO Attending Dr: Teena Otoole MD Ordering Physician: Teena Castillo MDResults: 1Negative Date of Service: 09/01/24Follow Up: 1 Year From Orig inal Mammogram Procedure(s): MM tomosynthesis screening BI Accession Number(s): [id number] cc: Teena Castillo MD EXAMINATION: MM SCREENING [...] by: Liudmila Erickson DO 09/07/2024 03:07 PM EST Dictated By: Liudmila Erickson DO Signed By: <Electronically signed by Liudmila Erickson DO in OV> 09/07/24 1507 DD/ 1155 TD/TT: 09/01/24 1205 Roll Icer: Teena Otoole MD IMG BI PROCEDURES Fin al Result * Hepatitis C Antibody with Reflex to HCV, RNA, Quantitative, Real-Time PCR (02/11/2024 6:14 AM EDT) Hepatitis C Antibody Nonreactive Nonreactive [facility] Comment:Antibodies to HCV no t detected; does not exclude early acuteHCV infection. Blood Venous blood specimen / Unknown 02/11/2024 6:14 AM EDT 02/11/2024 6:14 AM EDT Teena Otoole MD LAB BLOOD ORDERABLES Final Result [facility] [address] [place] [address] [phone] * HPV mRNA E6/E7 w/Reflex to HPV Genotypes 16, 18/45 (05/01/2023 12:00 AM EDT) HPV nRNA E6/E7 Not Detected Not Detected [facility] Comment:Methodology: Transcr iption-Mediated AmplificationThis assay detects E6/E7 viral messenger RNA (mRNA) from 14high-risk HPV types (16,18,31,33,35,39,45,51,52,56,58,59,66,68).Cervical sources are required for HPV testing.If a vaginal source from a patient who has had atotal hysterectomy with removal of cervix wassubmitted, please contact the testing laboratoryfor alternative testing options.For additional information, please refer [email or web address](This link if provided for information/educational purposes only.)THIS TEST WAS PERFORMED AT:[email or web address] [address] [phone] JUÁREZ MD HPV mRNA E6/E7 TNP [facility] HPV 16 RNA TNP [facility] HPV 18/45 RNA TNP [facility] 05/01/2023 05/02/2023 10: 15 AM EDT us Rachel Gaytan CNM LAB CYTOLOGY ORDERABLES F inal Result [facility] [address] [place] [phone] * Pap Smear (05/01/2023 12:00 AM EDT) 05/01/2023 05/02/2023 10: 15 AM EDT Narrative [facility] - 05/24/2023 4:11 PM EDT ----- ------- Name: Dara Garcia ? Age/Sex: 42/F ? : 1980 Unit#: [id number] ?? Attend Dr: RACHEL GAYTAN CNM ?Re05/01/23 ?Status: DEP REF ? [facility] ? Disch: ? ----- ------- SPEC : [id number] ?RECD: 05/02/235 ? STATUS: ??SOUT ? REQ NUM: [id number] ? SUDARSHAN: 05/01/23-0000 ? SUBM DR: RACHEL GAYTAN CNM ? ENTERED: ??05/05/233 ?SP TYPE: Pap Smr ?OTHR DR: ? ORDERED: ??Pap Smear ? Interpretation ?? Satisfactory for evaluation. ?? Negative for intraepithelial lesion or malignancy. ? HPV mRNA E6/E7: ?NOT DETECTED ? This assay detects E6/E7 viral messenger RNA (mRNA) from 14 high-risk HPV types (16, 18, ?? 31, 33, 35, 39, 45, 51, 52, 56, 58, 59, 66, 68) ? HPV testing performed by [place]. ??See reference laboratory ?? portion of the EMR for entire report. ?Clinical Information LMP:Unknown date Previous PAP test:Unknown date/findings ? Material Received ?? ThinPrep-Cervical ----- ------- Signed (signature on file) Meseret Lamas Idalmis 05/24/231610 ? ----- ------- ? END OF REPORT ? Rachel Gaytan [facility] CYTOLOGY ORDERABLES F inal Result [facility] [address] [place] [address] [phone] from Last 3 Months or Most Recently Relevant to Health Maintenance Insurance [facility] STAND ADULT Care Teams Addiction Psychiatrist Relationship Specialty Start Date End Date Teena Castillo MD [address] [place] [phone] PCP - General Family Medicine 03/18/19
--- OUTSIDE RECORDS SUMMARY | 2025-02-15 14:40 | XMS_ITS ---
Author Organization [employer] Address [address] [facility] 7t [place] [address] Care Team Providers Care Water Supply Technician Name Role Phone Teena Castillo MD Primary Care Provide r CM Complex Status:Outreach In Progress (Enrolling) Start date:01/26/2025 Enrollment reason:ADT Feed Overview ADT- Pt admitted to [facility] on 01/25/25. Case Team Name Relationship Phone Anton Cárdenas RN(Responsible Staff) Registered Nurse [phone] Continued Care and Services Coordination
--- OUTSIDE RECORDS SUMMARY | 2025-02-15 14:40 | XMS_ITS | Encounter Summary ---
Author Organization [employer] Address [address] 7[address] [place] [address] Care Team Providers Care Dat Instructor Name Role Phone Teena Castillo MD Primary Care Provide r Reason for Visit * Reason Comments Med Refill Encounter Details Date Type Department Care Team ([facility] st Contact Info) Description 09/28/2024 Refill [facility] [address] [place], [place] [phone] Teena Castillo MD [address] [place], [place] [phone] Class 2 severe obesity due to excess [...] Description 02/17/2025 1:00 PM EDT Office Visit [facility] MEDICINE [address] [place] [address] Teena Castillo MD [address] [place] [address] 02/23/2025 9:00 AM EDT Office Visit [facility] CHC ADULT DENTAL [address] [place] [address] Sara Melchor 505 [place] [address] 04/29/2025 10:00 AM EDT Office Visit [facility] MED[facility]INE [address] [place] [phone] Sean Lyles MD [address] [place] [phone] documented as of this encounter Visit Diagnoses Diagnosis Class 2 severe obesity due to excess calories with serious comorbidity and body mass index (BMI) of 37.0 to 37.9 in adult (CMS/HCC) documented in this encounter Additional Health Concerns Assessment Noted Time PHQ-9 Depression Total Score: 10 024 2:46 PM EDT documented as of this encounter Care Teams Dat Instructor Relationship Specialty Start Date End Date Teena Castillo MD [address] [place] [address] PCP - General Family Medicine 03/18/19 documented as of this encounter
--- OUTSIDE RECORDS SUMMARY | 2025-02-15 14:40 | XMS_ITS | Encounter Summary ---
Author Organization [employer] Address [address] 7t [place] [address] Care Team Providers Care Trash Collector Name Role Phone Teena Castillo MD Primary [...] Description 02/17/2025 1:00 PM EDT Office Visit [facility] MEDICINE [address] [place] [address] Teena Castillo MD [address] [place] [address] 02/23/2025 9:00 AM EDT Office Visit [facility] CHC ADULT DENTAL 505 [place] [address] Melchor, Harmanpreet 505 [place] [address] 04/29/2025 10:00 AM EDT Office Visit [facility] MEDICINE [address] [place] [address] Sean Lyles MD [address] [place] [address] documented as of this encounter Visit Diagnoses Not on filedocumented in this encounter Additional Health Concerns Assessment Noted Time PHQ-9 Depression Total Score: 17 025 3:24 PM EST documented as of this encounter Care Teams Trash Collector Relationship Specialty Start Date End Date Teena Castillo MD [address] [place] [phone] PCP - General Family Medicine 03/18/19 documented as of this encounter
--- OUTSIDE RECORDS SUMMARY | 2025-02-15 14:40 | XMS_ITS ---
Author Organization [employer] Address [address] [facility] 7t [place] [address] Care Team Providers Care Addressograph Operator Name Role Phone Teena Castillo MD Primary Care Provide r CHW Complex Status:Outreach In Progress (Enrolling) Start date:01/26/2025 Enrollment reason:ADT Feed Overview ADT- Pt admitted to [facility] on 01/25/25. Please outreach for enrollment. Case Team Name Relationship Phone Evi Heart(Responsible Staff) [phone] Continued Care and Services Coordination
--- OUTSIDE RECORDS SUMMARY | 2025-02-15 14:40 | XMS_ITS | Encounter Summary ---
Author Organization [employer] Address [address] [facility] [facility] [address] 7t [place] [address] Care Team Providers Care Face Painter Name Role Phone Teena Castillo MD Primary Care Provide r Encounter Details Date Type Department Care Team ([facility] st Contact Info) Description 02/11/2025 2:15 PM EDT Office Visit [facility] MEDICINE [address] [place] [address] Sean Lyles MD [address] [place] [address] Melasma (Primary Dx); Rash Social History Tobacco [...] 1:55 PM EDT documented in this encounter Progress Notes * Sean Lyles MD - 02/11/2025 2:15 PM EDT Subjective Patient ID: Dara Garcia is a 44 y.o. adult who presents for No chief complaint on file.. HPI 44 yr old woman with hx of dark spots on her face Review of Systems Constitutional: Negative for diaphoresis, fatigue and fever. HENT: Negative for ear discharge, ear pain, facial swelling and hearing loss. Respiratory: Negative for cough, choking, chest tightness and shortness of breath. Cardiovascular: Negative for chest pain and leg swelling. Gastrointestinal: Negative for abdominal distention, abdominal pain and anal bleeding. Endocrine: Negative for cold intolerance and heat intolerance. Genitourinary: Negative for enuresis, flank pain and frequency. Musculoskeletal: Negative for arthralgias, back pain and gait problem. Neurological: Negative for dizziness, facial asymmetry and headaches. Psychiatric/Behavioral: Negative for agitation, behavioral problems and confusion. Objective Physical Exam Skin: Comments: Dark pigmented macules on cheeks and forhead Assessment/Plan Diagnoses and all orders for this visit: 44 yr old woman with dark pigmentation on face, for the past 2-3 months She also describes tiredness. She is on Hydralazine which may cause drug induced lupus however rash is not typical in her case. Will check for LE. Meanwhile rx hydroquinone for depigmentation RTC in 4 weeks Melasma - hydroquinone 4 % cream; Apply topically 2 times daily. Rash - TERRENCE Screen,IFA, with Reflex to Titer and Pattern; Future - HISTONE ANTIBODIES; Future - DNA (ds) Antibody; Future documented in this encounter Plan of Treatment Upcoming Encounters Date Type Department Care Team (Late st Contact Info) Description 02/17/2025 1:00 PM EDT Office Visit [facility] MEDICINE [address] [place] [address] Teena Castillo MD [address] [place] [address] 02/23/2025 9:00 AM EDT Office Visit [facility] CHC ADULT DENTAL 505 [place] [address] George Melchoranpreet 505 [place] [address] 04/29/2025 10:00 AM EDT Office Visit [facility] MEDICINE 230 [place] [address] Sean Lyles MD [address] [place] [address] Scheduled Orders Name Type Priority Associated Diagnoses Orde r Schedule TERRENCE Screen,IFA, with Reflex to Titer and Pattern Lab Routine Rash Expected: 02/11/2025 (Approximate), Expires: 02/11/2026 HISTONE ANTIBODIES Lab Routine Rash Expected: 02/11/2025 (Approximate), Expires: 02/11/2026 documented as of this encounter Procedures Procedure Name Priority Date/Time Associated Diagnosis Comments DNA (DS) ANTIBODY Routine 02/11/2025 2:2 2 PM EDT Rash documented in this encounter Results * DNA (ds) Antibody (02/11/2025 2:22 PM EDT) Anti DNA DS Antibody <1 IU/mL [facility] Comment:IU/mL Interpretatio n < or = 4 Negative 5-9 Indeterminate > or = 10 PositiveTHIS TEST WAS PERFORMED AT:[facility] [place] [phone] JUÁREZ MD Blood Venous blood specimen / Unknown 02/11/2025 2:22 PM EDT 02/11/2025 4:12 PM EDT Sean Lyles MD LAB BLOOD ORDERABLES Final Re sult [facility] [address] [place] [address] [phone] documented in this encounter Visit Diagnoses Diagnosis Melasma- Primary Other dyschromia Rash Rash and other nonspecific skin eruption documented in this encounter Additional Health Concerns Assessment Noted Time PHQ-9 Depression Total Score: 17 11/23/2 025 3:24 PM EST documented as of this encounter Care Teams Face Painter Relationship Specialty Start Date End Date Teena Castillo MD [address] [place] [phone] PCP - General Family Medicine 03/18/19 documented as of this encounter
--- OUTSIDE RECORDS SUMMARY | 2025-02-15 14:40 | XMS_ITS | Encounter Summary ---
Author Organization [email or web address] Address [address] 7t [place] [address] Care Team Providers Care Carpet Sewer Name Role Phone Teena Castillo MD Primary Care Provide r Reason for Visit * Reason Comments Med Refill Encounter Details Date Type Department Care Team ([facility] st Contact Info) Description 08/11/2023 Refill [facility] CHC MED & PEDS [address] [place], [place] [phone] Nahid Mak MD [address] [place] [address] Essential hypertension Social History Tobacco Use Types [...] Description 02/17/2025 1:00 PM EDT Office Visit [facility] MEDICINE [address] [place] [address] Teena Castillo MD [address] [place] [address] 02/23/2025 9:00 AM EDT Office Visit [facility] CHC ADULT DENTAL [address] [place] [address] Melchor Georgehonoriopreet 505 [place] [address] 04/29/2025 10:00 AM EDT Office Visit [facility] MEDICINE [address] [place] [address] Sean Lyles MD [address] [place] [address] documented as of this encounter Visit Diagnoses Diagnosis Essential hypertension Unspecified essential hypertension documented in this encounter Additional Health Concerns Assessment Noted Time PHQ-9 Depression Total Score: 0 04/04/20 23 2:14 PM EDT documented as of this encounter Care Teams Carpet Sewer Relationship Specialty Start Date End Date Teena Castillo MD [address] [place] [phone] PCP - General Family Medicine 03/18/19 documented as of this encounter
--- OUTSIDE RECORDS SUMMARY | 2025-02-15 14:40 | XMS_ITS | Clinical Summary ---
Author Organization [facility] ity Address [address] [place] [address] Care Team Providers Care Engineering Operations Leader Name Role Phone Teena Castillo MD Primary [...] to complete this topic Care Teams Engineering Operations Leader Relationship Specialty Start Date End Date Teena Castillo MD [address] [place] [phone] PCP - General Internal Medicine 12/31/21
== END 2025-02-15 14:49 | disposition home or self-care (01) ==
LOC: HO.HCS 13:29
PROVIDERS: PCP Internal Medicine
DX: R07.9 Chest pain, unspecified (principal); R00.2 Palpitations; R53.83 Other fatigue; I10 Essential (primary) hypertension; G47.33 Obstructive sleep apnea (adult) (pediatric); Z99.89 Dependence on other enabling machines and devices; Z98.890 Other specified postprocedural states; Z09 Encounter for follow-up examination after completed treatment for conditions other than malignant neoplasm
CPT/HCPCS: 99214

== ENCOUNTER → 2025-02-15 13:29 | Outpatient (BNVA) | payer MEDICAID, SELFPAY | PROVIDERS: PCP Internal Medicine | DX: Z09 Encounter for follow-up examination after completed treatment for conditions other than malignant neoplasm (principal); R07.9 Chest pain, unspecified; R00.2 Palpitations; R53.83 Other fatigue; I10 Essential (primary) hypertension; G47.33 Obstructive sleep apnea (adult) (pediatric); Z99.89 Dependence on other enabling machines and devices; Z98.890 Other specified postprocedural states | CPT/HCPCS: 99212 ==

== ENCOUNTER 2025-04-06 08:09 | Outpatient (REF) | payer MEDICAID, SELFPAY ==
--- OUTSIDE RECORDS SUMMARY | 2025-04-06 08:12 | XMS_ITS | Clinical Summary ---
Author Organization [facility] Address [address] [place] [address] Care Team Providers Care Respiratory Technician Name Role Phone Teena Castillo MD [...] Influencers of Health Screening 09/01/2022 COVID-19 Vaccine (1 - 2023-2 5 season) 2024 Influenza Vaccine (#1) 2025 HIB Vaccines Aged Out No longer [...] 5 Years) and At-Risk Patients (6 to 49 Years) Aged Out No longer eligible b ased on patient's age to complete this topic RSV Immunization Patients Un prince 20 months Aged Out No longer eligible b ased on patient's age to complete this topic Varicella Vaccines Aged Out No longer eligible based on patient's age to complete this topic Care Teams Respiratory Technician Relationship Specialty Start Date End Date Teena Castillo MD [address] [place] [phone] PCP - General Internal Medicine 12/31/21
--- OUTSIDE RECORDS SUMMARY | 2025-04-06 08:12 | XMS_ITS | Encounter Summary ---
Author Organization [employer] Address [address] 7t [place] [address] Care Team Providers Care Pie Maker Name Role Phone Teena Castillo MD Primary Care Provide r Reason for Visit * Reason Comments Med Refill Encounter Details Date Type Department Care Team ([facility] st Contact Info) Description 02/17/2025 Refill [facility] MEDICINE [address] [place], [place] [phone] Teena Castillo MD [address] [place], [place] [phone] Class 2 severe obesity due to excess [...] Care Team (Late st Contact Info) Description 05/26/2025 11:00 AM EDT Office Visit [facility] MEDICINE [address] [place] [address] Teena Castillo MD [address] [place] [address] 05/27/2025 10:00 AM EDT Office Visit [facility] MEDICINE [address] [place] [address] Sean Lyles MD [address] [place] [address] documented as of this encounter Visit Diagnoses Diagnosis Class 2 severe obesity due to excess calories with serious comorbidity and body mass index (BMI) of 37.0 to 37.9 in adult (CMS/HCC) documented in this encounter Additional Health Concerns Assessment Noted Time PHQ-9 Depression Total Score: 17 025 3:24 PM EST documented as of this encounter Care Teams Pie Maker Relationship Specialty Start Date End Date Teena Castillo MD [address] [place] [address] PCP - General Family Medicine 03/18/19 documented as of this encounter
[2025-04-06 08:28] LABS: MANUAL DIFF FLAG NO
[2025-04-06 09:50] LABS: Hematocrit 41.7 % (37.0-47.0); Hemoglobin 13.6 g/dl (12.0-16.0); Imm Gran Abs Auto 0.01 X10*3/uL (0.00-0.03); Imm Gran Pct Auto 0.2 % (0.0-0.4); Lymphocytes Absolute Auto 1.6 X10*3/uL (1.2-4.9); Mean Corpuscular HGB Conc 32.6 g/dl (31.0-35.0); Mean Corpuscular Hemoglobin 26.6 pg (27.0-33.0); Mean Corpuscular Volume 81.6 fL (80.0-98.0); NRBC Abs Auto 0.000 X10*3/uL (0.0-0.012); NRBC Pct Auto 0.0 /100WBC (0.0-0.2); Platelet Count 256 X10*3/uL (160-400); Red Blood Count 5.11 X10*6/uL (4.20-5.50); White Blood Count 5.8 X10*3/uL (4.8-10.8)
[2025-04-06 10:33] LABS: Anion Gap 12 (12-20); Blood Urea Nitrogen 9 mg/dL (9-16); Calcium 8.8 mg/dL (8.4-10.2); Carbon Dioxide 24 mmol/L (22-29); Chloride 109 mmol/L (96-108); Estimated Glomerular Filt Rate > 60; Iron 65 mcg/dL (30-160); Percent Iron Saturation 31 % (15-50); Potassium 3.5 mmol/L (3.3-5.1); Sodium 141 mmol/L (135-145); Total Iron Binding Capacity 212 mcg/dL (228-428); Unsaturated Iron Binding 147 ug/dL
[2025-04-06 10:58] LABS: Folate 13.9 ng/mL (> or = 4.0); Vitamin B12 941 pg/mL (200-900)
[2025-04-06 11:00] LABS: Ferritin 104 ng/mL (10-250)
== END 2025-04-06 08:10 | disposition home or self-care (01) ==
LOC: HO.LAB 08:09
PROVIDERS: PCP Internal Medicine; Visit Provider Internal Medicine
DX: R53.83 Other fatigue (principal); E87.6 Hypokalemia
CPT/HCPCS: 36415; 80048; 82607; 82728; 82746; 83540; 85025

== ENCOUNTER 2025-05-11 12:46 | Outpatient (AMB) | payer MEDICAID, SELFPAY ==
--- OUTSIDE RECORDS SUMMARY | 2025-05-11 13:15 | XMS_ITS | Encounter Summary ---
Author Organization [employer] Address [address] [facility] [address] [address] 7[address] [place] [address] Care Team Providers Care Pulp Grinder And Blender Name Role Phone Teena Castillo MD Primary Care Provide r Reason for Visit * Reason Comments Med Refill Encounter Details Date Type Department Care Team ([facility] st Contact Info) Description 02/17/2025 Refill [facility] MEDICINE [address] [place], [place] [phone] Teena Castillo MD [address] [place], [place] [phone] Class 2 severe obesity due to excess [...] Care Team (Late st Contact Info) Description 05/16/2025 9:30 AM EDT Office Visit [facility] CHC ADULT DENTAL [address] [place], [place] [phone] Russ Perdue, DDS 505 [place] [address] 05/26/2025 11:00 AM EDT Office Visit [facility] MEDICINE [address] [place] [address] Teena Castillo MD [address] [place] [address] 05/27/2025 10:00 AM EDT Office Visit [facility] MEDICINE [address] [place] [address] [phone] Sean Lyles MD [address] [place] [address] documented as of this encounter Visit Diagnoses Diagnosis Class 2 severe obesity due to excess calories with serious comorbidity and body mass index (BMI) of 37.0 to 37.9 in adult (CMS/HCC) documented in this encounter Additional Health Concerns Assessment Noted Time PHQ-9 Depression Total Score: 17 11/23/ 025 3:24 PM EST documented as of this encounter Care Teams Pulp Grinder And Blender Relationship Specialty Start Date End Date Teena Castlilo MD [address] [place] [address] PCP - General Family Medicine 03/18/19 documented as of this encounter
--- OUTSIDE RECORDS SUMMARY | 2025-05-11 13:16 | XMS_ITS | Clinical Summary ---
Author Organization [facility] ity Address [address] [place] [address] Care Team Providers Care Pill Machine Operator Name Role Phone Teena Castillo [...] Cervical Cancer Screening: P ap Smear 2002 HIV Screening 09/01/2022 Hepatitis C Screening 09/01/2022 Social Influencers of Health Screening 09/01/2022 COVID-19 Vaccine (1 - 2023-2 5 season) 2024 Depression Screening 09/29/2024 Influenza Vaccine (#1) 2025 HIB Vaccines Aged [...] age to complete this topic Care Teams Pill Machine Operator Relationship Specialty Start Date End Date Teena Castillo MD [address] [place] [phone] PCP - General Internal Medicine 12/31/21
--- NOTE | 2025-05-11 13:21 | MHC.OFFVIS ---
Vital Signs 05/11/25 13:22 Height 5 ft 3 in Weight 188 lb 14.978 oz BMI 33.5 BP 100/80 Blood Pressure Location Lt brachial Position Left Lateral Pulse 88 Intake Visit Reasons: MRI result Chemical Worker Required: Yes Chemical Worker Name: Ken / Waqar /windy [id number] Supervisor Tellers: Supervisor Tellers Present Accompanied by: Spouse Allergies No Known Allergies Allergy (Verified 02/15/25 14:11) Medication List - Last Reconciled 05/11/25 by Augustine Ag NP acetaminophen 500 mg PO Q6H PRN amlodipine 10 mg PO DAILY amoxicillin 500 mg PO Q8H aspirin (Adult Aspirin Regimen) 81 mg PO DAILY atorvastatin 40 mg PO DAILY baclofen 10 mg PO TID buspirone 10 mg PO TID cholecalciferol (vitamin D3) (Vitamin D3) 25 mcg PO DAILY duloxetine 60 mg PO DAILY duloxetine 20 mg PO DAILY ferrous sulfate (FeroSul) 325 mg PO DAILY ibuprofen 600 mg PO Q6H PRN Held on 01/25/25. Instructions: Resume on 02/02/25. further use will be decided after angiogram losartan 100 mg PO DAILY meclizine 50 mg PO BID PRN metoprolol succinate ER 50 mg PO DAILY mirtazapine 7.5 mg PO BEDTIME multivitamin 1 tab PO DAILY tirzepatide (weight loss) (Zepbound) mg subcut QWEEK vitamin B complex-folic acid 0.4 mg (B Complex 1 (with folic acid)) 1 tab PO DAILY HPI Comments Details: This is a 44-year-old female patient coming in for a follow-up visit, accompanied by her . A rope twisting machine operator was used throughout the visit. Patient has a history of hypertension and obesity and was previously worked up for shortness of breath and palpitations. Patient underwent ischemic workup including echocardiogram and was subsequently followed by a cardiac catheterization which showed no coronary artery disease. However, patient continued to report her ongoing symptoms of feeling fatigued and intermittent chest pain for which patient underwent a cardiac MRI. Today, patient continues to report ongoing fatigue and weakness. Patient is otherwise denying any exertional chest pain, shortness of breath, palpitations, orthopnea, PND, leg edema, presyncope or syncope. Patient is reporting compliance with all her medications. [facility] Medical History Steatosis, liver BMI 38.0-38.9,adult BMI 39.0-39.9,adult Obesity Vitamin A deficiency H. pylori infection GERD (gastroesophageal reflux disease) Obstructive sleep apnea on CPAP Morbid obesity Excessive daytime sleepiness Anemia Bipolar 1 disorder Depression Arthritis Migraine Fibromyalgia Sleep apnea Vertigo HTN (hypertension) Surgical History S/P cardiac cath S/P laparoscopic sleeve gastrectomy Hx of tubal ligation Hx of section Family History Mother Hypertension Heart problem Arthritis Diabetes Pacemaker Father Vitiligo Sister No problems noted. Sister No problems noted. Sister No problems noted. Sister No problems noted. Sister No problems noted. Brother No problems noted. Brother No problems noted. Son No problems noted. Son No problems noted. Social History Household Members: Spouse and Children Are you a primary healthcare facility administrator to a significant other at home: No Do you presently have visiting nurse or other home services: No Alcohol intake: current Alcohol intake frequency: does not drink Patient Tobacco Use Status: Never used Tobacco service: No Current occupational status: disabled Review of Systems Const Denies daytime sleepiness, Denies difficulty sleeping, Denies snoring, Denies stops breathing during sleep and Denies weakness Card Reports chest pain, Denies rapid heart rate, Denies irregular heart rhythm, Denies claudication, Denies leg edema, Denies lightheadedness, Reports palpitations, Denies dyspnea, Denies dyspnea on exertion, Denies orthopnea, Denies paroxysmal nocturnal dyspnea and Denies slow heart rate Resp Denies cough, Denies dyspnea, Denies dyspnea on exertion and Denies snoring GI Reports no additional complaints, Denies hematochezia, Denies change in stool character and Denies dyspepsia Musc Denies abnormal gait, Denies muscle weakness and Denies numbness Neuro Denies abnormal gait, Denies numbness and Denies weakness Endo Reports palpitations Physical Exam Vital Signs: Last Vital Signs Pulse 88 05/11/25 13:22 BP 100/80 05/11/25 13:22 BMI result Body Mass Index 33.5 Const General: cooperative, healthy appearing, comfortable and no acute distress Orientation/consciousness: patient oriented x3 HEENT Head: Yes normal to inspection Neck Neck: Yes normal visual inspection, Yes trachea midline and Yes supple Chest Chest palpation & inspection: normal inspection of the chest Resp Effort & Inspection: normal respiratory effort Auscultation: clear to auscultation bilaterally, no crackles, no rales, no rhonchi and no wheezes Cardio Jugular venous distension: no JVD Palpation: normal PMI Rate: regular rate Rhythm: regular rhythm Heart sounds: S1 normal heart sound present, S2 normal heart sound present, no click, no gallops, no murmurs and no rubs Peripheral pulses: Peripheral pulses 2+ throughout GI Inspection: Yes normal to inspection Palpation (GI): Soft to palpation Auscultation: normal bowel sounds Skin General skin exam: no rashes or lesions noted Neuro General: patient oriented x3 Extrem General: Yes normal to inspection, No no pedal edema and No calf tenderness Psych Appearance: grossly normal Mental Status: mental status grossly normal Speech and movement: Normal speech and movement present Assessment & Plan Assessment & Plan (1) Nonischemic cardiomyopathy: Code(s): I42.8 - Other cardiomyopathies Category: Medical Plan: 01/26/2025-patient underwent a cardiac catheterization with Dr. Lira at [facility] that showed no significant coronary artery disease. 03/04/2025-patient underwent cardiac MRI that showed reduced LV systolic function with an ejection fraction at 48% consistent with nonischemic cardiomyopathy. We will discontinue aspirin and atorvastatin given no coronary artery disease. Most recent LDL less than 100. We will discontinue losartan therapy and start patient on Jardiance and Entresto therapy. Discussed signs and symptoms to watch for with heart failure. Clinically stable and euvolemic. Advised monitoring blood pressures and maintaining a log of it. We will bring patient back in 2 weeks for a nurse visit for blood pressure check. Blood pressure today is soft. We will plan to repeat an echo in next 6 months to assess for any improvement in the EF. (2) Fatigue: Code(s): R53.83 - Other fatigue Category: Medical Plan: As above. Advised heart healthy diet, low-salt diet, regular exercise, med compliance, and maintenance of vascular risk factors. Follow up in 3 months. In the interim, patient will call the office with any concerns or change in symptoms. This note was generated using voice recognition software. While every effort has been made to ensure accuracy and proper senior science consultant, there may be occasional errors that could affect the content or meaning of the described symptoms. Orders: Orders CA echo transthoracic complete 6 Months I42.8 - Other cardiomyopathies Medications: New empagliflozin 10 mg PO DAILY 90 tabs 3RF sacubitril-valsartan 24-26 mg 1 tab PO BID 90 tabs 3RF Discontinued atorvastatin Discontinued Reason: Doctor's Order 40 mg PO DAILY 1 tab 0RF aspirin (Adult Aspirin Regimen) Discontinued Reason: Doctor's Order 81 mg PO DAILY 90 tabs 3RF Coding Level of Care Code Est Pt Level 4 (04712) Complex EM visit Add On G2211 Diagnoses Nonischemic cardiomyopathy I42.8 Fatigue R53.83 Time Spent (min) 34
[2025-05-11 13:22] VITALS: BP 100/80; PULSE 88; BMI 33.5
== END 2025-05-11 14:02 | disposition home or self-care (01) ==
LOC: HO.HCS 12:46
PROVIDERS: PCP Internal Medicine
DX: I42.8 Other cardiomyopathies (principal); R53.83 Other fatigue
CPT/HCPCS: 99214

== ENCOUNTER → 2025-05-11 12:46 | Outpatient (BNVA) | payer MEDICAID, SELFPAY | PROVIDERS: PCP Internal Medicine | DX: Z71.2 Person consulting for explanation of examination or test findings (principal); I10 Essential (primary) hypertension; I42.8 Other cardiomyopathies; R53.83 Other fatigue | CPT/HCPCS: 99212 ==

== ENCOUNTER 2025-05-15 08:50 | Emergency (ER) | payer MEDICAID, SELFPAY ==
[2025-05-15] VITALS (9 sets, daily range): BP systolic 102–122; BP diastolic 63–81; PULSE 78–97; RESP 16–20; TEMP 36.4–37; O2SAT 96–98; BMI 31.0
--- NOTE | 2025-05-15 | ECG_ITS ---
Test Reason : cp Blood Pressure : */* mmHG Vent. Rate : 93 BPM Atrial Rate : 93 BPM P-R Int : 164 ms QRS Dur : 78 ms QT Int : 320 ms P-R-T Axes : 49 -4 7 degrees QTcB Int : 397 ms Normal sinus rhythm Nonspecific ST and T wave abnormality Abnormal ECG When compared with ECG of 07-Feb-2025 12:04, No significant change was found Referred By: Generic ED Physician Electronically Signed By: Newton Lira
--- NOTE | ~2025-05-15 | XR_ITS ---
CLINICAL HISTORY: CP, SOB 1 view chest x-ray Comparison: CR/SR - XR CHEST 2 VIEWS - 02/07/25 12:49 EDT Findings: No consolidation or effusion. Normal size heart. No acute fracture. IMPRESSION: No acute cardiopulmonary abnormality. This document has been electronically signed by: Tiffany Meier on 05/15/2025 11:18:07
[2025-05-15 09:09] LABS: MANUAL DIFF FLAG NO
[2025-05-15 09:10] LABS: Hematocrit 41.8 % (37.0-47.0); Hemoglobin 13.9 g/dl (12.0-16.0); Imm Gran Abs Auto 0.02 X10*3/uL (0.00-0.03); Imm Gran Pct Auto 0.3 % (0.0-0.4); Lymphocytes Absolute Auto 1.2 X10*3/uL (1.2-4.9); Mean Corpuscular HGB Conc 33.3 g/dl (31.0-35.0); Mean Corpuscular Hemoglobin 26.8 pg (27.0-33.0); Mean Corpuscular Volume 80.5 fL (80.0-98.0); NRBC Abs Auto 0.000 X10*3/uL (0.0-0.012); NRBC Pct Auto 0.0 /100WBC (0.0-0.2); Platelet Count 259 X10*3/uL (160-400); Red Blood Count 5.19 X10*6/uL (4.20-5.50); White Blood Count 6.5 X10*3/uL (4.8-10.8)
[2025-05-15 09:17] LABS: INTERNATIONAL NORM RATIO 1.0 (0.9-1.1); Prothrombin Time 11.6 SEC (10.9-12.4)
[2025-05-15 09:26] LABS: Alanine Aminotransferase 17 U/L (0-31); Albumin Level 3.9 g/dL (3.5-5.0); Alkaline Phosphatase 88 U/L (39-117); Anion Gap 13 (12-20); Aspartate Amino Transferase 20 U/L (5-31); Blood Urea Nitrogen 10 mg/dL (9-16); Calcium 9.1 mg/dL (8.4-10.2); Carbon Dioxide 24 mmol/L (22-29); Chloride 109 mmol/L (96-108); Creatinine Clr Calc Pharmacy 81.1; Estimated Glomerular Filt Rate > 60; Magnesium 2.3 mg/dL (1.6-2.6); Potassium 3.3 mmol/L (3.3-5.1); Sodium 143 mmol/L (135-145); Total Protein 7.2 g/dL (6.5-8.0)
[2025-05-15 09:34] LABS: Troponin-I High Sensitivity < 2.7 ng/L (<3.5-17.0)
[2025-05-15 09:46] LABS: Resp Syncy Virus RNA Qual PCR NEGATIVE (Negative); SARS COV2 PCR INHOUSE NEGATIVE (Negative)
--- OUTSIDE RECORDS SUMMARY | 2025-05-15 13:47 | XMS_ITS | Clinical Summary ---
Author Organization [facility] [address] ity Address [address] [place] [address] Care Team Providers Care Foreign Student Adviser Name Role Phone Teena Castillo MD Primary [...] age to complete this topic Care Teams Foreign Student Adviser Relationship Specialty Start Date End Date Teena Castillo MD [address] [place] [id number] PCP - General Internal Medicine 12/31/21
--- NOTE | 2025-05-15 14:17 | ED.CHESTPAIN ---
HPI - Chest Pain General Chief Complaint: Chest Pain Stated Complaint: CP + difficulty breathing Time Seen by Provider: 05/15/25 13:23 Source: patient Mode of arrival: ambulatory Limitations: no limitations History of Present Illness ED Provider: KAREN Baldwin HPI narrative: This is a 44-year-old female past medical history significant for morbid obesity status post laparoscopic sleeve gastrectomy, restless legs syndrome, bipolar disorder, depression, vertigo, GERD, hypertension, arthritis, migraines, unstable angina , nonischemic cardiomyopathy presenting to the emergency department with complaints of palpitation and chest discomfort ongoing for the past few days. Patient reports palpitations have been waking her in her sleep and she has been feeling unwell. She reports associated fatigue, malaise and myalgias. She denies shortness of breath, nausea, vomiting, headache, vision changes, dizziness, abdominal pain, changes in urinary and bowel habits. Related Data Home Medications ?Medication ?Instructions ?Recorded ?Confirmed duloxetine 60 mg capsule,delayed 60 mg PO DAILY 11/06/21 05/11/25 release meclizine 25 mg tablet 50 mg PO BID PRN Vertigo 11/06/21 05/11/25 metoprolol succinate 50 mg 50 mg PO DAILY 11/06/21 05/11/25 tablet,extended release 24 hr cholecalciferol (vitamin D3) 25 25 mcg PO DAILY 02/11/23 05/11/25 mcg (1,000 unit) capsule (Vitamin D3) ferrous sulfate 325 mg (65 mg 325 mg PO DAILY 02/11/23 05/11/25 iron) tablet (FeroSul) multivitamin 1 tab PO DAILY 02/11/23 05/11/25 amlodipine 10 mg tablet 10 mg PO DAILY 06/17/23 05/11/25 duloxetine 20 mg capsule,delayed 20 mg PO DAILY 12/20/24 05/11/25 release acetaminophen 500 mg tablet 500 mg PO Q6H PRN mild pain 01/25/25 05/11/25 amoxicillin 500 mg capsule 500 mg PO Q8H 01/25/25 05/11/25 baclofen 10 mg tablet 10 mg PO TID 01/25/25 05/11/25 buspirone 10 mg tablet 10 mg PO TID anxiety 01/25/25 05/11/25 ibuprofen 600 mg tablet 600 mg PO Q6H PRN mild pain 01/25/25 05/11/25 Held on 01/25/25. Instructions: Resume on 02/02/25. further use will be decided after angiogram mirtazapine 7.5 mg tablet 7.5 mg PO BEDTIME insomnia 01/25/25 05/11/25 vitamin B complex-folic acid 0.4 1 tab PO DAILY 01/25/25 05/11/25 mg tablet (B Complex 1 (with folic acid)) tirzepatide (weight loss) 10 mg subcut QWEEK 02/15/25 05/11/25 mg/0.5 mL subcutaneous pen injector (Zepbound) Previous Rx's ?Medication ?Instructions ?Recorded empagliflozin 10 mg tablet 10 mg PO DAILY #90 tabs 05/11/25 sacubitril 24 mg-valsartan 26 mg 1 tab PO BID #90 tabs 05/11/25 tablet cefuroxime axetil 250 mg tablet 250 mg PO BID 7 days #14 tabs 05/15/25 Allergies Allergy/AdvReac Type Severity Reaction Status Date / Time No Known Allergies Allergy Verified 05/15/25 09:07 Review of Systems Review of Systems: Yes all other systems are reviewed and are negative [facility] Past Medical History Attestation statement: The following information was validated with the patient. Source: old records reviewed and nursing notes reviewed Medical History Steatosis, liver BMI 38.0-38.9,adult BMI 39.0-39.9,adult Obesity Vitamin A deficiency H. pylori infection GERD (gastroesophageal reflux disease) Obstructive sleep apnea on CPAP Morbid obesity Excessive daytime sleepiness Anemia Bipolar 1 disorder Depression Arthritis Migraine Fibromyalgia Sleep apnea Vertigo HTN (hypertension) Surgical History S/P cardiac cath S/P laparoscopic sleeve gastrectomy Hx of tubal ligation Hx of section Family History Family History Mother Hypertension Heart problem Arthritis Diabetes Pacemaker Father Vitiligo Sister No problems noted. Sister No problems noted. Sister No problems noted. Sister No problems noted. Sister No problems noted. Brother No problems noted. Brother No problems noted. Son No problems noted. Son No problems noted. Social History Social History Household Members: Spouse and Children Are you a primary care center manager to a significant other at home: No Do you presently have visiting nurse or other home services: No Alcohol intake: current Alcohol intake frequency: does not drink Patient Tobacco Use Status: Never used Tobacco Smoked in Last 30 Days: No Use of substances other than those prescribed or required for medical reasons: No Advance Directives: Yes Advance Directives Information Provided: Yes Advance Directives on File: No Patient : No service: No Current occupational status: disabled Physical Exam Exam: Exam: Appearance: Alert.? Oriented X3.? No acute distress.? Head: Normocephalic, atraumatic, no step-offs or deformities Eyes: Pupils equal, round and reactive to light.? ENT: Pharynx normal.? Neck: Normal inspection.? Neck supple.? CVS: Normal heart rate and rhythm.? Pulses normal.? Respiratory: No respiratory distress.? Breath sounds normal.? Abdomen: Soft and nontender.? Skin: Skin warm and dry.? Normal skin color.? Normal skin turgor.? Extremities: No lower extremity edema.? No calf ttp. 5/5 strength to bilateral upper and lower extremities Back: No midline tenderness, no C-spine tenderness, full range of motion, no CVA tenderness bilaterally Neuro: Oriented X 3.? No motor deficit.? No sensory deficit. CN 2-12 intact Vital Signs: Vital Signs: Last Vital Signs Temp 98.0 F 05/15/25 16:08 Pulse 81 05/15/25 17:52 Resp 16 05/15/25 16:08 BP 111/79 05/15/25 17:52 Pulse Ox 96 05/15/25 16:08 O2 Del Method Room Air 05/15/25 14:44 BMI result Body Mass Index 31.0 vss Course Reevaluation(s) Reevaluation #1: Chemistry with no acute findings needing intervention. Troponin negative, EKG nonischemic. CBC unremarkable. Coag studies negative will add a D-dimer. Flu, COVID, RSV negative. Chest x-ray with no acute cardiopulmonary abnormalities. Pending D-dimer, orthostatic vitals Time: 14:25 Reevaluation #2: D-dimer negative. Orthostatic vital signs + dizziness with sanding will hydrate. Patient's urine out obvious for infection. Will start on Ceftin 250 mg b.i.d. x7 days. Patient agreeable to this Second troponin pending. As long as this is normal patient to be discharged home. Time: 15:09 Reevaluation #3: Second troponin negative. Patient was orthostatic she is going to receive IV hydration then we will repeat orthostatic vital signs. Time: 15:22 Additional Reevaluation(s): Orthostatic vitals improved. Patient feeling better. She will be discharged with Ceftin 250 mg b.i.d. x7 days advised to return with any new or worsening symptoms. Educated patient on diagnosis and treatment plan, answered all question, patient verbalizes understanding. At this time patient will be discharged home, advised to return with new or worsening symptoms. Educated on worrisome signs and symptoms and when to return. At this time I feel comfortable discharge home. Medications Administered Discontinued Medications Generic Name Dose Route Start Last Admin Trade Name Freq PRN Reason Stop Dose Admin Sodium Chloride 1,000 mls @ 999 mls/hr 05/15/25 15:15 05/15/25 17:37 Ns IV 05/15/25 16:15 Infused .Q1H1M MARY JANE Infusion Ketorolac Tromethamine 30 mg 05/15/25 14:31 05/15/25 16:06 Ketorolac Tromethamine 15 Mg/Ml Vial IVPUSH 05/15/25 14:32 30 mg ONCE ONE Administration Medical Decision Making Medical Decision Making [facility] Narrative: 1400 44-year-old female presents with chest discomfort palpitations ongoing for the past few days. Physical exam benign. Regular rhythm noted. History and physical exam concerning for anxiety versus dysrhythmia versus ACS. Unlikely pericarditis, myocarditis, endocarditis. Plan labs, imaging, urine, orthostatic vitals Differential Diagnosis Differential Diagnoses: The differential diagnosis associated with the presentation includes (History and physical exam concerning for anxiety versus dysrhythmia versus ACS. Unlikely pericarditis, myocarditis, endocarditis.) Admission/Observation Consideration of admission/observation: Escalation of care including admission/observation considered Consult Healthcare Provider Management of the patient was discussed with: Lumber Stacker Operator Lab Data MDM Lab Attestation statement: I reviewed the patient's lab results. 05/15/25 09:04 05/15/25 09:04 Labs: Lab Results 05/15/25 05/15/25 Range/Units 09:04 14:49 WBC 6.5 (4.8-10.8) X10*3/uL RBC 5.19 (4.20-5.50) X10*6/uL Hgb 13.9 (12.0-16.0) g/dl Hct 41.8 (37.0-47.0) % MCV 80.5 (80.0-98.0) fL MCH 26.8 L (27.0-33.0) pg MCHC 33.3 (31.0-35.0) g/dl RDW 13.6 (11.0-16.0) % Plt Count 259 (160-400) X10*3/uL MPV 9.4 (9.4-12.3) fL Immature Gran % (Auto) 0.3 (0.0-0.4) % Neut % (Auto) 69.7 (45-73) % Lymph % (Auto) 19.0 L (20-40) % [place] % (Auto) 9.0 (2-11) % Eos % (Auto) 1.2 (0-4) % Baso % (Auto) 0.8 (0-2) % Lymph # (Auto) 1.2 (1.2-4.9) X10*3/uL [place] # (Auto) 0.6 (0.1-1.2) X10*3/uL Eos # (Auto) 0.1 (0.0-0.4) X10*3/uL Baso # (Auto) 0.1 (0.0-0.2) X10*3/uL Abs Immat Gran (auto) 0.02 (0.00-0.03) X10*3/uL Absolute Neuts (auto) 4.5 (2.0-8.3) x10*3/uL Absolute Nucleated RBC 0.000 (0.0-0.012) X10*3/uL Nucleated RBC % (auto) 0.0 (0.0-0.2) /100WBC PT 11.6 (10.9-12.4) SEC INR 1.0 (0.9-1.1) D-Dimer High Sensitivty < 150 NG/ML Sodium 143 (135-145) mmol/L Potassium 3.3 (3.3-5.1) mmol/L Chloride 109 H (96-108) mmol/L Carbon Dioxide 24 (22-29) mmol/L Anion Gap 13 (12-20) BUN 10 (9-16) mg/dL Creatinine 0.96 (0.5-1.4) mg/dL Estim Creat Clear Calc 81.1 Estimated GFR > 60 Random Glucose 77 (60-115) mg/dL Calcium 9.1 (8.4-10.2) mg/dL Magnesium 2.3 (1.6-2.6) mg/dL Total Bilirubin 0.4 (0.0-1.0) mg/dL AST 20 (5-31) U/L ALT 17 (0-31) U/L Alkaline Phosphatase 88 (39-117) U/L Troponin I High Sens < 2.7 < 2.7 (<3.5-17.0) ng/L Total Protein 7.2 (6.5-8.0) g/dL Albumin 3.9 (3.5-5.0) g/dL Urine Color Yellow Urine Appearance Clear Urine pH 5.5 (5.0-9.0) Ur Specific [place] >= 1.030 H (1.005-1.025) Urine Protein Negative (Neg-Trace) mg/dL Urine Glucose (UA) >=1000 H (Negative) mg/dL Urine Ketones Trace (Negative) mg/dL Urine Blood Negative (Negative) Urine Nitrite Positive H (Negative) Ur Leukocyte Esterase Negative (Negative) Urine RBC 0-2 (0-2) /HPF Urine WBC 0-5 (0-5) /HPF Ur Squamous Epith Cells 3-5 (0-2) /HPF Urine Bacteria 4+ (None Seen) Hyaline Casts 0-2 (0-2) /LPF Influenza Type A (PCR) NEGATIVE (Negative) Influenza Type B (PCR) NEGATIVE (Negative) RSV RNA Qual (PCR) NEGATIVE (Negative) SARS-CoV-2 RNA (RT-PCR) NEGATIVE (Negative) Independent Interpretation I performed an independent interpretation of an: EKG (Normal sinus rhythm Nonspecific ST and T wave abnormality Abnormal ECG When compared with ECG of 07-Feb-2025 12:04, No significant change was found ) and Plain X-Ray (Findings: No consolidation or effusion. Normal size heart. No acute fracture. IMPRESSION: No acute cardiopulmonary abnormality.) Interpretation: I did review in external steady which was done on 03/04/2025 MRI of cardiac with and without contrast which reveal the left ventricular chamber sizes normal left ventricular function is globally mildly reduced there is no focal wall motion abnormalities. Radiology Impression Discussion of test interpretation with radiology: I have reviewed the radiologist's reading. Independent Historian Clinical information obtained from an independent historian. History obtained from or confirmed by: Other (partner ) External Record Review External record reviewed: Inpatient record, Office record, Outpatient record, Prior outpatient labs, Prior outpatient radiology, Primary care record and Outside ED record Chronic Conditions Patient?s care impacted by: Hypertension Critical Care Time Critical Care Time Critical Care Time: Yes Total Critical Care Time: 35 Attestation: I attest to this time spent taking care of the patient, obtaining history, physical, reviewing labs, imaging, treatment of patients condition +/- specialist/hospitalist consult +/- procedure Discharge Plan Discharge Clinical Impression: UTI (urinary tract infection), Palpitations, Chest pain, Orthostatic hypotension Patient Disposition: Home, Self-Care Instructions: Chest Pain (DC), Heart Palpitations (ED), Heart Palpitations (DC), Urinary Tract Infection in Women (ED) Additional Instructions: Take your medications as prescribed. If you were prescribed antibiotics today, it is important that you take your medication to their entirety, do not skip any doses, do not finish them early. Follow-up with your primary care provider this week. Return to the emergency department with new or worsening symptoms. Such as fevers, chills, chest pain, shortness of breath, nausea, vomiting, dizziness, headache, vision changes, lethargy In case of emergency call 911 Please follow-up with your PCP and Cardiology for further cardiac evaluation. If symptoms worsen return immediately Prescriptions: New cefuroxime axetil 250 mg tablet 250 mg PO BID 7 Days Qty: 14 0RF No Action amoxicillin 500 mg capsule 500 mg PO Q8H acetaminophen 500 mg tablet 500 mg PO Q6H PRN (Reason: mild pain) buspirone 10 mg tablet 10 mg PO TID ibuprofen 600 mg tablet 600 mg PO Q6H PRN (Reason: mild pain) mirtazapine 7.5 mg tablet 7.5 mg PO BEDTIME vitamin B complex-folic acid [B Complex 1 (with folic acid)] 0.4 mg tablet 1 tab PO DAILY baclofen 10 mg tablet 10 mg PO TID duloxetine 60 mg capsule,delayed release(DR/EC) 60 mg PO DAILY metoprolol succinate 50 mg tablet extended release 24 hr 50 mg PO DAILY meclizine 25 mg tablet 50 mg PO BID PRN (Reason: Vertigo) ferrous sulfate [FeroSul] 325 mg (65 mg iron) tablet 325 mg PO DAILY cholecalciferol (vitamin D3) [Vitamin D3] 25 mcg (1,000 unit) capsule 25 mcg PO DAILY multivitamin Tablet 1 tab PO DAILY amlodipine 10 mg tablet 10 mg PO DAILY duloxetine 20 mg capsule,delayed release(DR/EC) 20 mg PO DAILY Zepbound 10 mg/0.5 mL pen injector subcut QWEEK empagliflozin 10 mg tablet 10 mg PO DAILY Qty: 90 3RF sacubitril-valsartan 24-26 mg tablet 1 tab PO BID Qty: 90 3RF Referrals: [facility] [Provider Group] - 1 week Teena Castillo MD [Primary Care Provider, Internal Medicine] Stand Alone Forms: Work/School Release Print Language: Luxembourgish
[2025-05-15 14:48] LABS: D Dimer High Sensitivity < 150 NG/ML
--- NOTE | 2025-05-15 14:55 | MHC.EDTECH ---
This pct attempted to do orthos on patient was able to obtain laying to sitting but was to dizzy while trying to stand will try again later. RN Aware
[2025-05-15 14:58] LABS: Appearance Urine Clear; Glucose Urine UA >=1000 mg/dL (Negative); PH 5.5 (5.0-9.0); Specific Gravity - Urine >= 1.030 (1.005-1.025); UMIC TRIGGER UACC YES
[2025-05-15 15:06] LABS: UACC Culture Trigger YES
[2025-05-15 15:19] LABS: Troponin-I High Sensitivity < 2.7 ng/L (<3.5-17.0)
== END 2025-05-15 18:15 | disposition home or self-care (01) ==
PROVIDERS: Physician Assistant; Emergency Provider Emergency Medicine; PCP Internal Medicine
DX: N39.0 Urinary tract infection, site not specified (principal); R00.2 Palpitations; R07.9 Chest pain, unspecified; I95.1 Orthostatic hypotension; R06.02 Shortness of breath
CPT/HCPCS: 71045; 80053; 81001; 83735; 84484; 85025; 85379; 85610; 87086; 87088; 87186; 87637; 93005; 96361; 96374; 99284; 99285; J1885

== ENCOUNTER → 2025-05-15 08:59 | Outpatient (BNV) | payer MEDICAID, SELFPAY | PROVIDERS: PCP Internal Medicine; Visit Provider Internal Medicine Cardiovascular Disease | DX: R94.31 Abnormal electrocardiogram [ECG] [EKG] (principal); R07.9 Chest pain, unspecified | CPT/HCPCS: 93010 ==

== ENCOUNTER → 2025-05-15 09:00 | Outpatient (BNV) | payer MEDICAID, SELFPAY | PROVIDERS: PCP Internal Medicine; Visit Provider Radiology Vascular & Interventional Radiology | DX: R06.02 Shortness of breath (principal) | CPT/HCPCS: 71045 ==

== ENCOUNTER 2025-05-26 11:23 | Outpatient (REF) | payer MEDICAID, SELFPAY ==
--- NOTE | ~2025-05-26 | XR_ITS ---
EXAMINATION: XR LUMBOSACRAL SPINE CLINICAL INFORMATION: pain COMPARISON: 12/13/2021 TECHNIQUE: Three views of the lumbosacral spine. FINDINGS: There is a minimal right convex scoliosis. There is a normal lordosis. There is no subluxation. There is no fracture, compression deformity, or suspicious bone lesion. Disc spaces appear largely preserved. Facets are normally aligned without significant facet arthrosis. There are no pars defects. The SI joints appear grossly normal. The sacrum is intact. Surgical clips are present in the epigastric region. Soft tissues otherwise normal. XR/XR lumbar spine 2-3V IMPRESSION: No acute findings of the lumbar spine. Electronically signed by: Ray Tamez MD 05/26/2025 12:43 PM EDT
--- OUTSIDE RECORDS SUMMARY | 2025-05-26 11:00 | XMS_ITS | Encounter Summary ---
Author Organization [employer] Address [address] [facility] 7 [place] [address] Care Team Providers Care Digital Imaging Technician Name Role Phone Teena Castillo MD Primary Care Provide r Reason for Referral * Consultation (Routine) - Pending Review Specialty Diagnoses / Procedures Referred By Cata rahman Referred To Contact Rheumatology Diagnoses Positive TERRENCE (antinuclear antibody) Arthritis Teena Castillo MD [address] [place] [phone] Phone: tel: fax: Referral ID Status Reason Start Date Expiration Date Visits Requested Visits Authorized [id number] Pending Review Specialty Services Required 05/26/2025 05/26/2026 1 1 Scheduling Instructions Patient was referred to [facility] she call and was told she requires an language interpreter and she does not have one please refer to another facility where language interpreter is not a requirement thank you Encounter Details Date Type Department Care Team (Late st Contact Info) Description 05/26/2025 11:00 AM EDT Office Visit [facility] [address] [place] [address] [phone] Teena Castillo MD [address] [place] [phone] Dysuria (Primary Dx); Chronic midline low back pain, unspecified whether sciatica present; Migraine without aura, not refractory; Chronic right shoulder pain; Positive TERRENCE (antinuclear antibody); Arthritis; Class 1 obesity Social History Tobacco Use Types Packs/Day Years Used Date Smoking Tobacco: Never Passive Smoke Exposure: Never Smokeless Tobacco: Never Alcohol Use Standard Drinks/Week Comments Never 0 (1 standard drink = 0.6 oz pur e alcohol) Depression Answer Date Recorded Patient Health Questionnaire-9 Score 10 05/26/2025 Patient Health Questionnaire-9 Score 10 05/26/2025 Last PHQ-9: Questionnaire Data Not on file 0 05/26/2025 Housing Stability Answer Date Recorded What is your housing situation today? I have arnulfo betts 06/15/[address] you li ve. Do you have problems with any of the following? None of the above 06/15/2024 Food Insecurity Answer Date Recorded Within the past 12 months, y ou worried that your food would run out before you got money to buy more: Often true 04/21/2025 Within the past 12 months,th e food you bought just didn't last and you didn't have enough money to get more: Often true Transportation Answer Date Recorded In the past 12 months, has l ack of transportation kept you from medical appts, meetings, work or from getting things needed for daily living? No 06/15/2024 Utilities Answer Date Recorded In the past 12 months, has t he electric, gas, oil or water company threatened to shut off services in your home? Yes 04/21/2025 Depression Answer Date Recorded Patient Health Questionnaire-2 Score 4 05/26/2025 Internet Access Answer Date Recorded Internet Access Q1 Yes 04/21/2025 Internet Access Q2 I do not want or need it 03/30 Comments No Sex and Gender Information Value Date Recorded Sex Assigned at Female 07/29/2022 10:21 AM EDT Legal Sex Female 10:21 AM EDT Gender Identity Choose not to disclose 10:21 AM EDT Sexual Orientation Choose not to disclose 2021 10:21 AM EDT documented as of this encounter Last Filed Vital Signs Vital Sign Reading Time Taken Comments Blood Pressure 124/80 05/26/2025 10:39 AM EDT Pulse 89 05/26/2025 10:39 AM EDT Temperature 36.6 C (97.9 F) 05/26/2025 10:39 AM EDT Respiratory Rate 21 05/26/2025 10:39 AM EDT Oxygen Saturation 97% 05/26/2025 10:39 AM EDT Inhaled Oxygen Concentration - - Weight 84.9 kg (187 lb 2 oz) 05/26/2025 10:39 AM EDT Height 160 cm (5' 3 ) 05/26/2025 10:39 AM EDT Body Mass Index 33.15 05/26/2025 10:39 AM EDT documented in this encounter Functional Status * Over the past 2 weeks, how often have you been bothered by any of the following problems? Question Answer Date of Assessment Author Patient Health Questionnaire -2 Score 4 05/26/2025 11:28 AM EDT Brooke Majano MA * Little interest or pleasure in doing things Answer Date of Assessment Author More than half the days 05/26/2025 11:28 AM SHERITAT Brooke Majano MA * Feeling down, depressed, or hopeless Answer Date of Assessment Author More than half the days 05/26/2025 11:28 AM SHERITAT Brooke Majano MA * Trouble falling or staying asleep, or sleeping too much Answer Date of Assessment Author More than half the days 05/26/2025 11:28 AM EDT Brooke Majano MA * Feeling tired or having little energy Answer Date of Assessment Author Several days 05/26/2025 11:28 AM SHERITAT Brooke Majano MA * Poor appetite or overeating Answer Date of Assessment Author Several days 05/26/2025 11:28 AM SHERITAT Brooke Majano MA * Feeling bad about yourself - or that you are a failure or have let yourself or your family down Answer Date of Assessment Author Not at all 05/26/2025 11:28 AM EDT Brooke Majano MA * Trouble concentrating on things, such as reading the newspaper or watching television Answer Date of Assessment Author Several days 05/26/2025 11:28 AM SHERITAT Brooke Majano MA * Moving or speaking so slowly that other people could have noticed? Or the opposite - being so fidgety or restless that you have been moving around a lot more than usual. Answer Date of Assessment Author Several days 05/26/2025 11:28 AM EDT Brooke Majano MA * Thoughts that you would be better off or hurting yourself in some way Answer Date of Assessment Author Not at all 05/26/2025 11:28 AM Brooke Mccabe MA * Patient Health Questionnaire-9 Score Answer Date of Assessment Author 10 05/26/2025 11:28 AM SHERITAT Brooke Majano MA * How difficult have these problems made it for you to do your work, take care of things at home, or get along with other people? Answer Date of Assessment Author Somewhat difficult 05/26/2025 11:28 AM SHERITAT Brooke Baxter MA * Over the last 2 weeks, how often have you been bothered by any of the following problems? Question Answer Date of Assessment Author Feeling nervous, anxious, or on edge 3 05/26/2025 11:28 AM SHERITAT Brooke Majano MA Not being able to stop or co ntrol worrying 3 05/26/2025 11:28 AM SHERITAT Brooke Majano MA Worrying too much about diff erent things 3 05/26/2025 11:28 AM Brooke Mccabe MA Trouble relaxing 1 05/26/2025 11:28 AM SHERITAT Brooke Majano MA Being so restless that it is hard to sit still 1 05/26/2025 11:28 AM Brooke Mccabe MA Becoming easily annoyed or irritable 2 05/26/2025 11:28 AM SHERITAT Brooke Majano MA Feeling afraid as if somethi ng awful might happen 1 05/26/2025 11:28 AM Brooke Mccabe MA LANI-7 Total Score 14 05/26/2025 11:28 AM Brooke Mccabe MA documented as of this encounter Plan of Treatment Upcoming Encounters Date Type Department Care Team (Late st Contact Info) Description 05/27/2025 10:00 AM EDT Office Visit [facility] [address] [place] [address] Sean Lyles MD [address] [place] [address] Scheduled Orders Name Type Priority Associated Diagnoses Orde r Schedule XR Lumbar Spine 2-3 Views Imaging Routine Chronic midline low back pain, unspecified whether sciatica present Expected: 05/26/2025, Expires: 05/26/2026 Scheduled Referrals Name Type Priority Associated Diagnoses Order Schedule Referral to Rheumatology Outpatient Referral Routine Positive TERRENCE (antinuclear antibody) Arthritis Expected: 05/26/2025 (Approximate), Expires: 05/26/2026 documented as of this encounter Visit Diagnoses Diagnosis Dysuria- Primary Chronic midline low back pain, unspecified whether sciatica present Migraine without aura, not refractory Chronic right shoulder pain Pain in joint, shoulder region Positive TERRENCE (antinuclear antibody) Other and unspecified nonspecific immunological findings Arthritis Unspecified arthropathy, site unspecified Class 1 obesity documented in this encounter Additional Health Concerns Assessment Noted Time PHQ-9 Depression Total Score: 10 025 11:28 AM EDT documented as of this encounter Care Teams Digital Imaging Technician Relationship Specialty Start Date End Date Teena Castillo MD [address] [place] [phone] PCP - General Family Medicine 03/18/19 documented as of this encounter
--- OUTSIDE RECORDS SUMMARY | 2025-05-26 12:44 | XMS_ITS | Encounter Summary ---
Author Organization [employer] Address [address] [facility] 7[address] [place] [address] Care Team Providers Care Fruit Stuffer Name Role Phone Teena Castillo MD Primary Care Provide r Encounter Details Date Type Department Care Team (Late st Contact Info) Description 02/06/2023 Orders Only [facility] [address] [place], [place] [phone] Melly Mccloud LPN Social History Tobacco Use [...] Description 05/27/2025 10:00 AM EDT Office Visit [facility] [address] [place] [address] Sean Lyles MD [address] [place] [address] documented as of this encounter Visit Diagnoses Not on filedocumented in this encounter Care Teams Fruit Stuffer Relationship Specialty Start Date End Date Teena Castillo MD [address] [place], [place] [phone] PCP - General Family Medicine 03/18/19 documented as of this encounter
--- OUTSIDE RECORDS SUMMARY | 2025-05-26 12:44 | XMS_ITS | Encounter Summary ---
Author Organization [employer] Address [address] [facility] 7t [place] [address] Care Team Providers Care Cloth Winding Supervisor Name Role Phone Teena Castillo MD Primary Care Provide r Reason for Visit * Reason Comments Care Management C3CM- f/u call lvm Encounter Details Date Type Department Care Team ([facility] Contact Info) Description 05/23/2025 Patient Outreach [facility] [address] [place] [address] Teena Castillo MD [address] [place] [address] Care Management (C3CM- f/u call lvm) Social History Tobacco Use Types Packs/Day Years Used Date Smoking Tobacco: Never Passive Smoke Exposure: Never Smokeless Tobacco: Never Alcohol Use Standard Drinks/Week Comments Never 0 (1 standard drink = 0.6 oz pur e alcohol) Depression Answer Date Recorded Patient Health Questionnaire-9 Score 8 04/22/2025 Patient Health Questionnaire-9 Score 8 04/22/2025 Last PHQ-9: Questionnaire Data Not on file 0 04/22/2025 Housing Stability Answer Date Recorded What is [...] Answer Date Recorded Patient Health Questionnaire-2 Score 2 04/22/2025 Internet Access Answer Date Recorded Internet Access [...] as of this encounter Progress Notes * Anton Cárdenas RN - 05/23/2025 11:29 AM EDT CM Anton Cárdenas RN placed outbound call with CHW [facility] to patient for follow up call. Noanswer at this time. LVM introducing herself from [facility] CM Department. Requested call back. CM reinforced direct contact information or CHW for any additional questions or concerns. Education provided on Walk-In Urgent Care located in [facility] of [facility]. Patient provided with after-hours line for [facility], , which offer night time triage service and option to transfer to tv production assistant provider if needed. CM will attempt another follow up call within 10 days. documented in this encounter Plan of Treatment Upcoming Encounters Date Type Department Care Team (Late st Contact Info) Description 05/27/2025 10:00 AM EDT Office Visit [facility] [address] [place] [phone] Sean Lyles MD [address] [place] [address] documented as of this encounter Visit Diagnoses Not on filedocumented in this encounter Additional Health Concerns Assessment Noted Time PHQ-9 Depression Total Score: 8 04/22/20 25 8:15 AM EDT documented as of this encounter Care Teams Cloth Winding Supervisor Relationship Specialty Start Date End Date Teena Castillo MD [address] [place] [address] PCP - General Family Medicine 03/18/19 documented as of this encounter
--- OUTSIDE RECORDS SUMMARY | 2025-05-26 12:44 | XMS_ITS | Encounter Summary ---
Author Organization [employer] Address [address] [facility] [address] [place] [address] Care Team Providers Care Collision Center Manager Name Role Phone Teena Castillo MD Primary Care Provide r Reason for Visit * Reason Comments Care Coordination SDOH f/u Encounter Details Date Type Department Care Team (Latest Contact Info) Description 05/23/2025 Patient Outreach [facility] [address] [place] [address] Teena Castillo MD [address] [place] [address] Care Coordination (SDOH f/u) Social History Tobacco Use Types Packs/Day Years [...] as of this encounter Progress Notes * Evi Heart - 05/23/2025 11:29 AM EDT CHW [facility]/CM Anton Cárdenas RN placed outbound call to patient for follow up call on SDOH needs. No answer at this time. LVM introducing herself from [facility] CM Department. Requested call back. CHW reinforced direct contact information or CM for any additional questions or concerns and extended clinic hours on Mondays and Wednesdays, and Walk-In Urgent Care Located in [facility] of [facility]. Patient provided with after-hours line for [facility], , which offer night time triage service and option to transfer to wellness consultant provider if needed. CHW will attempt another follow up call within 10 days. documented in this encounter Plan of Treatment Upcoming Encounters Date Type Department Care Team ([facility] st Contact Info) Description 05/27/2025 10:00 AM EDT Office Visit [facility] [address] [place] [address] Sean Lyles MD [address] [place] [address] documented as of this encounter Visit Diagnoses Not on filedocumented in this encounter Additional Health Concerns Assessment Noted Time PHQ-9 Depression Total Score: 8 04/22/20 25 8:15 AM EDT documented as of this encounter Care Teams Collision Center Manager Relationship Specialty Start Date End Date Teena Castillo MD [address] [place] [address] PCP - General Family Medicine 03/18/19 documented as of this encounter
--- OUTSIDE RECORDS SUMMARY | 2025-05-26 12:44 | XMS_ITS ---
Author Organization [employer] Address [address] [facility] 7[address] [place] [address] Care Team Providers Care Accounts Payable Accountant Name Role Phone Teena Castillo MD Primary Care Provide r CHW Complex Status:Enrolled (Active) Start date:01/26/2025 Enrollment date:04/21/2025 Enrollment reason:ADT Feed Overview ADT- Pt admitted to [facility] on 01/25/25. Please outreach for enrollment. Case Team Name Relationship Phone Evi [facility](Responsible Staff) [phone] Continued Care and Services Coordination
--- OUTSIDE RECORDS SUMMARY | 2025-05-26 12:44 | XMS_ITS ---
Author Organization [employer] Address [address] [facility] [address]t [place] [address] Care Team Providers Care Pediatric Physical Therapy Assistant Name Role Phone Teena Castillo MD Primary Care Provide r CM Complex Status:Enrolled (Active) Start date:01/26/2025 Enrollment date:04/22/2025 Enrollment reason:ADT Feed Overview ADT- Pt admitted to [facility] on 01/25/25. Case Team Name Relationship Phone Anton Cárdenas RN(Responsible Staff) Registered Nurse [phone] Continued Care and Services Coordination
--- OUTSIDE RECORDS SUMMARY | 2025-05-26 12:44 | XMS_ITS | Encounter Summary ---
Author Organization [employer] Address [address] [facility] [address] [place] [address] Care Team Providers Care Parachute Marker Name Role Phone Teena Castillo MD Primary Care Provide r Reason for Visit * Reason Onset Date Comments chart prep 05/25/2025 Encounter Details Date Type Department Care Team ([facility] Contact Info) Description 05/25/2025 Telephone [facility] [address] [place] [address] Teena Castillo MD [address] [place] [address] chart prep Social History Tobacco Use Types Packs/Day Years [...] encounter Miscellaneous Notes * Telephone Encounter - Haven Harris MA - 05/25/2025 9:57 AM EDT Chart Prep Labs: done Images: done Referrals: complete Vaccines due: Covid, Flu, Hep B, HPV, and DTAP Screenings: not applicable Overdue care gaps: SBIRT, PHQ-9, and LANI-7 documented in this encounter Plan of Treatment Upcoming Encounters Date Type Department Care Team (Late st Contact Info) Description 05/27/2025 10:00 AM EDT Office Visit [facility] [address] [place] [address] Sean Lyles MD [address] [place] [address] documented as of this encounter Visit Diagnoses Not on filedocumented in this encounter Additional Health Concerns Assessment Noted Time PHQ-9 Depression Total Score: 8 04/22/20 25 8:15 AM EDT documented as of this encounter Care Teams Parachute Marker Relationship Specialty Start Date End Date Teena Castillo MD [address] [place] [address] PCP - General Family Medicine 03/18/19 documented as of this encounter
--- OUTSIDE RECORDS SUMMARY | 2025-05-26 12:44 | XMS_ITS | Clinical Summary ---
Author Organization [employer] Address [address] [facility] 7t [place] [address] Care Team Providers Care Can Bander Operator Name Role Phone Teena Castillo MD Primary Care Provide r Allergies Active Allergy Reactions Criticality Noted Date Comments Trell Inhibitors Cough 10/08/2010 Medications prazosin (Minipress) 2 MG capsuleIndicati ons:PTSD (post-traumatic stress disorder) take 1 capsule by oral route every bedtime 90 capsule 022 Active Multiple Vitamin (Multivitamin) tabletIndicatio ns:Vitamin deficiency TAKE 1 TABLET BY MOUTH EVERY DAY WITH FOOD 90 tablet 1 024 Active Vitamins-Lipotr opics [...] (BMI) of 37.0 to 37.9 in adult ([facility]) Inject 0.5 mL (10 mg) under the skin 1 (one) time per week. INJECT ONE PEN (=10 MG) SUBCUTANEOUSLY ONCE A WEEK 2 mL Active cholecalciferol (Vitamin D High Potency) 25 MCG (1000 UT) capsuleIndicati ons:Vitamin deficiency TAKE 1 CAPSULE BY MOUTH EVERY DAY 90 capsule 1 025 Active baclofen (Lioresal) 10 MG tabletIndicatio ns:Fibromyositi s Take 1 tablet (10 mg) by mouth 3 times daily. 90 tablet 025 Active acetaminophen (Tylenol) 500 MG tablet [...] minutes following use. 473 mL 025 Active acetaminophen (Tylenol) 500 MG tablet Take 1 tablet (500 mg) by mouth every 6 (six) hours if needed for mild pain for up to 20 doses. 20 tablet 025 Active ibuprofen 600 MG tablet Take 1 tablet (600 mg) by mouth every 6 (six) hours if needed for mild pain for up to 20 doses. 20 tablet 025 Active metoprolol succinate XL (Toprol-XL) 50 MG 24 hr tablet TAKE 1 TABLET BY MOUTH EVERY MORNING, DO NOT BREAK, CRUSH, DISSOLVE OR CHEW 90 tablet 1 025 Active hydroCHLOROthia zide 12.5 MG tabletIndicatio ns:Essential hypertension Take 1 tablet (12.5 mg) by mouth Once per day. 90 tablet 3 025 2025 Active hydroquinone 4 % creamIndication s:Melasma APPLY TOPICALLY TWICE A DAY 28.35 g 025 Active Zepbound 12.5 MG/0.5ML solution auto-injectorIn dications:Class 1 obesity due to excess calories with serious comorbidity and body mass index (BMI) of 34.0 to 34.9 in adult INJECT ONE PEN (=12.5MG) SUBCUTANEOUSLY ONCE A WEEK DIRECTED 2 mL 1 025 Active Ferrous Sulfate (iron) 325 (65 Fe) MG tabletIndicatio ns:Vitamin deficiency TAKE 1 TABLET BY MOUTH EVERY DAY 90 tablet 1 025 Active Jardiance 10 MG Take 1 tablet by mouth Once per day. Active ascorbic acid (Vitamin C) 500 MG tablet take one daily 021 Active busPIRone (Buspar) 15 MG tablet TAKE 1 TABLET BY MOUTH THREE TIMES DAILY FOR ANXIETY Active DULoxetine (Cymbalta) [address] capsule Take 60 mg by mouth Once per day. Active losartan (Cozaar) 100 MG tabletIndicatio ns:Primary hypertension TAKE 1 TABLET BY MOUTH EVERY DAY 90 tablet 1 025 Active B Complex Vitamins (vitamin B complex) tabletIndicatio ns:Vitamin deficiency TAKE 1 TABLET BY MOUTH EVERY DAY 90 tablet 1 025 Active amLODIPine (Norvasc) 10 MG tabletIndicatio ns:Primary hypertension TAKE 1 TABLET BY MOUTH EVERY DAY 90 tablet 1 025 Active meloxicam (Mobic) 15 MG tabletIndicatio ns:Chronic midline low back pain, unspecified whether sciatica present Take 1 tablet (15 mg) by mouth Once per day. 30 tablet 1 025 2025 Active Magnesium 400 MG capsuleIndicati ons:Migraine without aura, not refractory Take 1 capsule by mouth Once per day. 30 capsule 1 025 Active nitrofurantoin, macrocrystal-mo nohydrate, (Macrobid) 100 MG capsuleIndicati ons:Dysuria Take 1 capsule (100 mg) by mouth 2 times daily for 7 days. 14 capsule 025 2024 Active Tirzepatide-Jem ght Management (Zepbound) 15 MG/0.5ML solution auto-injectorIn dications:Class 1 obesity Inject 0.5 mL (15 mg) under the skin 1 (one) time per week. 2 mL 3 025 Active B Complex Vitamins (B-Complex/B-12 ) tabletIndicatio ns:Vitamin deficiency TAKE 1 TABLET BY MOUTH EVERY DAY 90 tablet 1 024 2024 Discontinued losartan (Cozaar) 100 MG tabletIndicatio ns:Primary hypertension TAKE 1 TABLET BY MOUTH EVERY DAY 90 tablet 1 025 2024 Discontinued amLODIPine (Norvasc) 10 MG tabletIndicatio ns:Primary hypertension TAKE 1 TABLET BY MOUTH EVERY DAY 90 tablet 1 025 2024 Discontinued Ferrous Sulfate (iron) 325 (65 Fe) MG tabletIndicatio ns:Vitamin deficiency TAKE 1 TABLET BY MOUTH EVERY DAY 90 tablet 1 025 2024 Discontinued meclizine (Antivert) 25 MG tabletIndicatio ns:Dizziness TAKE 2 TABLETS BY MOUTH TWICE DAILY NEEDED 120 tablet 5 025 2024 Discontinued Active Problems Problem Noted Date Diagnosed Date Chronic midline low back pain 05/26/2025 Chronic right shoulder pain 05/26/2025 Positive TERRENCE (antinuclear antibody) 05/26/2025 Dysuria 05/26/2025 Discoloration of skin of face 02/22/2025 Chronic fatigue 02/17/2025 Assessment & Plan (02/17/2025 2:11 PM EDT): I ordered blood work patient will be contacted with results Class 1 obesity due to exces s calories with serious comorbidity and body mass index (BMI) of 34.0 to 34.9 in adult 02/17/2025 Assessment & Plan (02/17/2025 2:10 PM EDT): Extensive counseling about healthy diet and exercise on today I will go up on her Zepbound to 12.5 mg weekly Arthritis 01/20/2025 Bipolar 1 disorder 01/20/2025 Class 1 obesity 01/20/2025 History of gastric restrictive surgery Migraines 01/20/2025 Dyspnea on exertion 08/19/2024 Assessment & Plan (11/23/2024 5:17 PM EST): Labs ordered today patient will be contacted with results Do not miss appointment with cardiology Melasma 08/19/2024 Nocturnal hypoxemia 03/12/2024 Hypokalemia 03/02/2024 Assessment & Plan (02/17/2025 2:10 PM EDT): BMP will be rechecked Assessment & Plan (03/02/2024 4:30 PM EDT): [...] 4:29 PM EDT): C/w psychiatrist and therapist Irregular periods 04/04/2023 Hand pain 04/02/2023 Chronic low back pain 04/02/2023 Assessment & Plan (07/20/2024 12:23 PM EDT): I will prescribe today short course of tramadol Carpal tunnel syndrome 04/02/2023 Atypical chest pain 04/02/2023 Vertigo 12/07/2015 Obstructive sleep apnea syndrome 12/07/2015 [...] directed Essential hypertension 12/07/2015 Assessment & Plan (02/17/2025 2:10 PM EDT): I advised: - Aerobic exercise to reduce [...] consulting health care provider Assessment & Plan (11/23/2024 5:17 PM EST): [...] with psychiatry and therapist Allergic rhinitis 12/07/2015 Resolved Problems Problem Noted Date Diagnosed Date Resolved Date Class 2 severe obesity due t o [...] regarding chronic pain, blood pressure and mood Encounter for preventative a dult health care examination 04/04/2023 02/17/2025 Assessment & Plan (04/04/2023 3:04 PM EDT): Please see HPI Opioid abuse 12/08/2017 02/17/2025 Encounters Date Type Department Care Team Description 05/26/2025 11:00 AM EDT Office Visit [address] [address] Teena Castillo MD Dysuria (Primary Dx); Chronic midline low back pain, unspecified whether sciatica present; Migraine without aura, not refractory; Chronic right shoulder pain; Positive TERRENCE (antinuclear antibody); Arthritis; Class 1 obesity 05/26/2025 Travel 05/25/[address] [address] Teena Castillo MD chart prep 05/23/2025 Patient Outreach [address] [address] Teena Castillo MD Care Coordination (SDOH f/u) 05/23/2025 Patient Outreach [address] [address] Teena Castillo MD Care Management (C3CM- f/u call lvm) 05/18/[address] [address] Teena Castillo MD Primary hypertension; Vitamin deficiency 05/16/2025 9:30 AM EDT Office Visit [facility] ADULT DENTAL [address] [place], [place] [phone] Russ Perdue DDS Dental caries (Primary Dx) 05/16/2025 Patient Outreach [address] [address] Teena Castillo MD 05/15/[address] [address] Melly Neff DO Class 1 obesity due to excess calories with serious comorbidity and body mass index (BMI) of 34.0 to 34.9 in adult 05/15/2025 Orders Only GENERIC EXTERNAL DATA DEPARTMENT Provider, Generic External Data 05/05/2025 Patient Outreach [address] [address] Teena Castillo MD Care Management ([facility]- f/u call) 05/03/2025 Patient Outreach [address] [address] Teena Castillo MD Care Coordination ([facility] f/u) 05/01/[address] [address] Teena Castillo MD Vitamin deficiency 04/29/2025 8:30 AM EDT Office Visit [facility] ADULT DENTAL [address] [place] [address] Alison Oneal DDS 04/22/2025 9:00 AM EDT Office Visit [facility] ADULT DENTAL [address] [place] [address] Alison Oneal DDS 04/22/2025 Plan of Care Documentation [address] [address] 04/22/2025 Patient Outreach [address] [address] Teena Castillo MD Care Coordination (SDAK) 04/22/2025 Patient Outreach [address] [address] Teena Castillo MD Care Management ([facility]- initial assessment/ enrollment) 04/22/[address] [place] [address] Teena Castillo MD Error (VOID this visit) 04/21/2025 Patient Outreach [address] [address] Teena Castillo MD Care Coordination (SDAK) 04/19/2025 Telephone [facility] ADULT DENTAL [address] [place] [address] Luis Angel Worthington DDS 04/18/2025 Patient Outreach [address] [address] Teena Castillo MD Care Management (C3CM- initial assessment/ enrollment. lvm) 04/18/2025 Refill [facility] MEDICINE [address] [place] [phone] Melly Neff DO Class 1 obesity due to excess calories with serious comorbidity and body mass index (BMI) of 34.0 to 34.9 in adult 04/13/2025 Patient Outreach [address] [address] Teena Castillo MD Care Coordination (CM/CHW outreach) 04/07/2025 Refill [facility] MED & PEDS [address] [place] [address] [facility] 03/[facility]/2025 Refill [facility] MED & PEDS [address] [place], [place] [phone] Teena Castillo MD [facility] 03/18/2025 Refill [facility] MEDICINE [address] [place] [address] Teena Castillo MD Class 1 obesity due to excess calories with serious comorbidity and body mass index (BMI) of 34.0 to 34.9 in adult 03/07/2025 9:00 AM EDT Office Visit [facility] ADULT DENTAL [address] [place] [address] Sara Melchor 03/03/2025 Refill [facility] MED & PEDS [address] [place] [address] Teena Castillo MD Essential hypertension; Cristinaasma 03/02/2025 9:00 AM EDT Office Visit [facility] ADULT DENTAL [address] [place] [address] Sara Melchor 02/23/2025 9:00 AM EDT Office Visit [facility] ADULT DENTAL [address] [facility] [place] [address] Sara Melchor from Last 3 Months Immunizations Immunization Administration [...] Mass Index 33.15 05/26/2025 10:39 AM EDT Plan of Treatment Upcoming Encounters Date Type Department Care Team (Late st Contact Info) Description 05/27/2025 10:00 AM EDT Office Visit [facility] MEDICINE [address] [place] [phone] Sean Lyles MD [address] [place] [address] Health Maintenance Due Date Last Done Comments HIV Screening 1980 Family Planning (PISQ) 1996 HPV Vaccines (1 - 3-dose series) 1996 Hepatitis B Vaccines (1 of 3 - 19+ 3-dose series) 2000 DTaP/Tdap/Td Vaccines (2 - Td or Tdap) 08/14/2021 08/14/2011 COVID-19 Vaccine ( - season) 2024 04/12/2021, 03/22/2021 Influenza Vaccine (#1) 2025 9, 07/07/2014, 10/26/2013, Additional history exists Mammogram 09/01/2025 09/01/2024, 07/25/2023 Dental Oral Exam 09/02/2025 03/02/2025 Dental Prophylaxis 09/07/2025 03/07/2025 Depression Monitoring 11/26/2025 05/26/2025, 025 Disability Screening 02/17/2026 02/17/2025 Dental X-Ray: Bitewings 03/03/2026 03/02/2025, 01/20 SDOH Screening 04/21/2026 04/21/2025 Alcohol/Substance Use Screening 05/26/2026 05/26/2025 Tobacco Screening 05/26/2026 05/26/2025 Dental X-Ray: Full Mouth 03/03/2028 03/02/2025 Lipid Panel 12/22/2029 12/22/2024, 01/28, 06/21/2023 Zoster Vaccines (1 of 2) 2031 RSV Patients and Patients Aged 60 years or older (1 - 1-dose 75+ series) 2056 Cervical Cancer Screening Discontinued HPV/Cotest Discontinued 05/01/2023 Pap Smear Discontinued 05/01/2023 Hepatitis C Screening Completed 02/11/2024 HIB Vaccines [...] Years) and At-Risk Patients (6 to 49) Years Aged Out No longer eligible based on patient's age to complete this topic RSV under 20 months Aged Out No longe r eligible based on patient's age to complete this topic Rotavirus Vaccines Aged Out No longer eligible based on patient's age to complete this topic Procedures Procedure Name Priority Date/Time Associated Diagnosis Comments NO CHARGE VISIT Routine 05/16/2025 9:30 AM EDT HIGH SENSITIVITY TROPONIN I Routine 05/15/2025 2:49 PM EDT URINALYSIS, COMPLETE, WITH REFLEX TO CULTURE Routine 05/15/2025 2:49 PM EDT XR CHEST 1 VIEW Routine 05/15/2025 11:18 AM EDT D DIMER HIGH SENSITIVITY Routine 05/15/2025 9:04 AM EDT HIGH SENSITIVITY TROPONIN I Routine 05/15/2025 9:04 AM EDT MAGNESIUM Routine 05/15/2025 9:04 AM EDT COMPREHENSIVE METABOLIC PANEL Routine 05/15/2025 9:04 AM EDT PROTHROMBIN TIME-INR Routine 05/15/2025 9:04 AM EDT CBC WITH AUTO DIFFERENTIAL Routine 05/15/2025 9:04 AM EDT SARS COV2/INFLUENZA A/B AND RSV RNA QL NAAT Routine 05/15/2025 9:04 AM EDT CULTURE, URINE, ROUTINE Routine 05/15/2025 12:00 AM EDT CASE PRESENTATION, DETAILED AND EXTENSIVE TREATMENT PLANNING Routine 04/29/2025 8:30 AM EDT 1 MO RESIN-BASED COMPOSITE - 2 SURF, POSTERIOR Routine 04/29/2025 8:30 AM EDT 2 MODL RESIN-BASED COMPOSITE - 4+ SURF, POSTERIOR Routine 04/29/2025 8:30 AM EDT CASE PRESENTATION, DETAILED AND EXTENSIVE TREATMENT PLANNING Routine 04/22/2025 9:00 AM EDT 29 O RESIN-BASED COMPOSITE - 1 SURF, POSTERIOR Routine 04/22/2025 9:00 AM EDT VITAMIN B12/FOLATE, SERUM PANEL Routine 04/06/2025 8:26 AM EDT Chronic fatigue FERRITIN Routine 04/06/2025 8:26 AM EDT Chronic fatigue IRON AND TOTAL IRON BINDING CAPACITY Routine 04/06/2025 8:26 AM EDT Chronic fatigue CBC WITH AUTO DIFFERENTIAL Routine 04/06/2025 8:26 AM EDT Chronic fatigue BASIC METABOLIC PANEL Routine 04/06/2025 8:26 AM EDT Hypokalemia ORAL HYGIENE INSTRUCTIONS Routine 03/07/2025 9:00 AM EDT PROPHYLAXIS - ADULT Routine 03/07/2025 9 :00 AM EDT CASE PRESENTATION, DETAILED AND EXTENSIVE TREATMENT PLANNING Routine 03/07/2025 9:00 AM EDT 9 MFL RESIN-BASED COMPOSITE - 3 SURF, ANTERIOR Routine 03/07/2025 9:00 AM EDT 8 MFL RESIN-BASED COMPOSITE - 3 SURF, ANTERIOR Routine 03/07/2025 9:00 AM EDT CASE PRESENTATION, DETAILED AND EXTENSIVE TREATMENT PLANNING Routine 03/02/2025 9:00 AM EDT COMPREHENSIVE ORAL EVALUATION - NEW OR ESTABLISHED PATIENT Routine 03/02/2025 9:00 AM EDT INTRAORAL - COMPLETE SERIES OF RADIOGRAPHIC IMAGES Routine 03/02/2025 9:00 AM EDT 14 O AMALGAM FILLING Routine 03/02/2025 12:00 AM EDT 2 L AMALGAM FILLING Routine 03/02/2025 1 2:00 AM EDT CASE PRESENTATION, DETAILED AND EXTENSIVE TREATMENT PLANNING Routine 02/23/2025 9:00 AM EDT 13 ENDODONTIC THERAPY, PREMOLAR TOOTH Routine 02/23/2025 9:00 AM EDT LIPID PANEL, STANDARD Routine 12/22/2024 8:37 AM [...] Maintenance Results * High Sensitivity Troponin I (05/15/2025 2:49 PM EDT) Only the most recent of2 resultswithin the time period is included. TROPONIN I HIGH SENSITIVITY <2.7 <3.5 - 17.0 ng/L [facility] Comment:The Casas high sens itivity Troponin-I results should beused in conjunction with other diagnostic information suchas ECG, clinical observations and information, and patientsymptoms to aid in the diagnosis of RI. 05/15/2025 2:49 PM EDT 05/15/2025 2:52 PM EDT us Generic External Data Provider LAB BLOOD ORDERAB LES Final Result [facility] [address] [place] [phone] * (ABNORMAL) Urinalysis, Complete, with Reflex to Culture (05/15/2025 2:49 PM EDT) Color Urine Yellow [facility] Appearance Urine Clear [facility] PH 5.5 5.0 - 9.0 [facility] Glucose Urine UA >=1000(A) Negative mg/dL [facility] Urine Blood Negative Negative [facility] Specific Cammal - Urine >=1.030(H) 1.005 - 1.025 [facility] Urine Protein Negative Neg-Trace mg/dL [facility] Urine Ketones Trace Negative mg/dL [facility] Nitrite Urine Positive(A) Negative [facility] Leukocyte Esterase Urine Negative Negative [facility] RBC Urine 0-2 0 - 2 /HPF [facility] Urine WBC 0-5 0 - 5 /HPF [facility] Urine Squamous Epithelial Cell 3-5 0 - 2 /HPF [facility] Urine Bacteria 4+ None Seen [facility] Hyaline Casts, Urine 0-2 0 - 2 /LPF [facility] 05/15/2025 2:49 PM EDT 05/15/2025 2:52 PM EDT Narrative [facility] - 05/15/2025 3:10 PM EDT [id number], [employer] us Generic External Data Provider LAB URINE ORDERAB LES Final Result Performing Organization Address City/State/[facility] Co de Phone Number [facility] [address] [place] [phone] * XR Chest 1 View (05/15/2025 11:18 AM EDT) Anatomical Region Laterality Modality Chest Radiographic Anyi ging 05/15/2025 11:1 8 AM EDT Narrative 05/15/2025 11:19 AM EDT [address] [address] XRay Report Signed Patient: Dara Garcia MR#: [id number] 46 : 1980 Acct:[id number] Age/Sex: 44 / F ADM Date: 05/15/25 Loc: HO.ED Attending Dr: Ordering Physician: Generic ED Physician Date of Service: 05/15/25 Procedure(s): XR chest 1V Accession Number(s): [id number] cc: Teena Castillo MD; Generic ED Physician CLINICAL HISTORY: CP, SOB 1 view chest x-ray Comparison: CR/SR - XR CHEST 2 VIEWS - 02/07/25 12:49 EDT Findings: No consolidation or effusion. Normal size heart. No acute fracture. IMPRESSION: No acute cardiopulmonary abnormality. This document has been electronically signed by: Tiffany Meier on 05/15/2025 11:18:07 Dictated By: Tiffany Meier MD Signed By: <Electronically signed by Tiffany Meier MD in OV> 05/15/25 1119 DD/ 1118 TD/TT: 05/15/25 1118 Stair Builder: Procedure Note Donotuseinterpreter, Image - 08/17/[address] [address] XRay Report Signed Patient: Angi Garcia#: [id number] 47 : 1980Acct:[id number] Age/Sex: 44 / FADM Date: 05/15/25 Loc: HO.ED Attending Dr: Ordering Physician: Generic ED Physician Date of Service: 05/15/25 Procedure(s): XR chest 1V Accession Number(s): [id number] cc: Teena Castillo MD; Generic ED Physician CLINICAL HISTORY: CP, SOB 1 view chest x-ray Comparison: CR/SR - XR CHEST 2 VIEWS - 02/07/25 12:49 EDT Findings: No consolidation or effusion. Normal size heart. No acute fracture. IMPRESSION: No acute cardiopulmonary abnormality. This document has been electronically signed by: Tiffany Meier on 05/15/2025 11:18:07 Dictated By: Tiffany Meier MD Signed By: <Electronically signed by Tiffany Meier MD in OV> 05/15/25 1119 DD/ 1118 TD/TT: 05/15/25 1118 Stair Builder: [facility] External Provider IMG XR PROCEDURES Edited Result - Final * D Dimer High Sensitivity (05/15/2025 9:04 AM EDT) D Dimer High Sensitivity <150 NG/ML [facility] Comment:D-DIMER HS REFERENCE RANGENote: Our assay reports D-Dimer Units (D- DU).The cut-off value for venous thromboembolic (VTE) disease is230 ng/mL. This value has a very high negative predictivevalue when the patient has a low to moderate clinicalprobability of VTE.The upper limit of normal is 243 ng/mL. 05/15/2025 9:04 AM EDT 05/15/2025 9:08 AM EDT Generic External Data Provider LAB BLOOD ORDERAB LES Final Result [facility] [address] [place] [phone] [phone] * SARS-CoV-2 RNA, Influenza A/B, and RSV RNA, Ql NAAT (05/15/2025 9:04 AM EDT) Pathologist [facility] Influenza A PCR NEGATIVE Negative [facility] Influenza B PCR NEGATIVE Negative [facility] Resp Syncy Virus RNA Qual PCR NEGATIVE Negative [facility] SARS COV2 PCR NEGATIVE Negative [place] [...] use by authorized laboratories.Testing performed on the [employer] GeneXpert utilizingreal-time RT-PCR.All SARS CoV2 and positive influenza A/B results arereported to [facility]. 05/15/2025 9:04 AM EDT 05/15/2025 9:08 AM EDT us Generic External Data Provider LAB MICROBIOLOGY - GENERAL ORDERABLES Final Result [facility] [address] [place] [phone] * (ABNORMAL) CBC auto differential (05/15/2025 9:04 AM EDT) Only the most recent of2 resultswithin the time period is included. Pathologist [facility] [place] White Blood Count 6.5 4.8 - 10.8 X10*3/uL [facility] Red Blood Count 5.19 4.20 - 5.50 X10*6/uL [facility] Hemoglobin 13.9 12.0 - 16.0 g/dl [facility] Hematocrit 41.8 37.0 - 47.0 % [facility] Mean Corpuscular Volume 80.5 80.0 - 98.0 fL [facility] Mean Corpuscular Hemoglobin 26.8(L) 27.0 - 33.0 pg [facility] Mean Corpuscular HGB Conc 33.3 31.0 - 35.0 g/dl [facility] Red Cell Distribution Width 13.6 11.0 - 16.0 % [facility] Platelet Count 259 160 - 400 X10*3/uL [facility] Mean Platelet Volume 9.4 9.4 - 12.3 fL [facility] Neutrophils Percent Auto 69.7 45 - 73 % [facility] Imm Gran Pct Auto 0.3 0.0 - 0.4 % [facility] Lymphocytes Percent Auto 19.0(L) 20 - 40 % [facility] Monocytes Percent Auto 9.0 2 - 11 % [facility] Eosinophils Percent Auto 1.2 0 - 4 % [facility] Basophils Percent Auto 0.8 0 - 2 % [facility] NRBC Pct Auto 0.0 0.0 - 0.2 /100WBC [facility] Neutrophils Absolute Auto 4.5 2.0 - 8.3 x10*3/uL [facility] Imm Gran Abs Auto 0.02 0.00 - 0.03 X10*3/uL [facility] Lymphocytes Absolute Auto 1.2 1.2 - 4.9 X10*3/uL [facility] Monocytes Absolute Auto 0.6 0.1 - 1.2 X10*3/uL [facility] Eosinophils Absolute Auto 0.1 0.0 - 0.4 X10*3/uL [facility] Basophils Absolute Auto 0.1 0.0 - 0.2 X10*3/uL [facility] NRBC Abs Auto 0.000 0.0 - 0.012 X10*3/uL [facility] 05/15/2025 9:04 AM EDT 05/15/2025 9:08 AM EDT us Generic External Data Provider LAB BLOOD ORDERAB LES Final Result Performing Organization Address [facility] Co de Phone Number [facility] [address] [place] [phone] * Prothrombin Time-INR (05/15/2025 9:04 AM EDT) [facility] Prothrombin Time 11.6 10.9 - 12.4 SEC [facility] INTERNATIONAL NORM RATIO 1.0 0.9 - 1.1 [facility] Comment:INTERNATIONAL NORMAL IZED RATIO (INR) REFERENCE RANGES Reference RangeFor patients not on anticoagulant therapy: 0.9 - 1.1INR ranges for oral anticoagulanttherapy:For prevention and treatment of venous thrombosis and pulmonary embolism: 2.0 - 3.0For acute myocardial infarction with aspirin therapy: 2.0 - 3.0For acute myocardial infarction without aspirin therapy: 3.0 - 4.0For patients with mechanical prosthetic heart valves: 2.5 - 3.5 05/15/2025 9:04 AM EDT 05/15/2025 9:08 AM EDT Generic External Data Provider LAB BLOOD ORDERAB LES Final Result Performing Organization Address [facility] de Phone Number [facility] [address] [place] [phone] * Magnesium (05/15/2025 9:04 AM EDT) [facility] Magnesium 2.3 1.6 - 2.6 mg/dL [facility] 05/15/2025 9:04 AM EDT 05/15/2025 9:08 AM EDT Generic External Data Provider LAB BLOOD ORDERAB LES Final Result Performing Organization Address [facility] Co de Phone Number [facility] [address] [place] [phone] * (ABNORMAL) Comprehensive Metabolic Panel (05/15/2025 9:04 AM EDT) [facility] Sodium 143 135 - 145 mmol/L [facility] Potassium 3.3 3.3 - 5.1 mmol/L [facility] Chloride 109(H) 96 - 108 mmol/L [facility] Carbon Dioxide 24 22 - 29 mmol/L [facility] Anion Gap 13 12 - 20 [facility] Urea Nitrogen (BUN) 10 9 - 16 mg/dL [facility] Creatinine, Serum 0.96 0.5 - 1.4 mg/dL [facility] Creatinine Clr Calc Pharmacy 81.1 [facility] Comment:Provided height and weight: 165.1 cm,84.5 kg.eGFR (calculated from the MDRD study equation) and eCrCl(calculated from the Cockcroft-Gault equation) are based ondifferent parameters and may not yield comparable results.If eCrCl result is absurd, please check patient'sheight/weight. Estimated Glomerular Filt Rate >60 [facility] Comment:Chronic Kidney Disea se: Estimated GFR < 60 mL/min/[id number] Kidney Disease: Estimated GFR < 15 mL/min/1.73m2 Glucose 77 60 - 115 mg/dL [facility] Calcium 9.1 8.4 - 10.2 mg/dL [facility] Bilirubin, Total 0.4 0.0 - 1.0 mg/dL [facility] Aspartate Amino Transferase 20 5 - 31 U/L [facility] Alanine Aminotransferase 17 0 - 31 U/L [facility] Total Protein 7.2 6.5 - 8.0 g/dL [facility] Albumin Level 3.9 3.5 - 5.0 g/dL [facility] Alkaline Phosphatase 88 39 - 117 U/L [facility] 05/15/2025 9:04 AM EDT 05/15/2025 9:08 AM EDT us Generic External Data Provider LAB BLOOD ORDERAB LES Final Result [facility] [address] [place] [phone] [phone] * Culture, Urine, Routine (05/15/2025 12:00 AM EDT) Urine Urine specimen obtained by clean catch procedure / Unknown 05/15/2025 05/15/2025 Comment:UACC Narrative [facility] - 05/17/2025 7:34 AM EDT Escherichia coli Quant > 100,000 cfu/mL Escherichia coli: Ampicillin 4(S) Escherichia coli: Cefazolin (Urine) <=1(S) Escherichia coli: Cefepime <=0.12(S) Escherichia coli: Ceftriaxone <=0.25(S) Escherichia coli: Ciprofloxacin <=0.06(S) Escherichia coli: Gentamicin <=1(S) Escherichia coli: Nitrofurantoin 32(S) Escherichia coli: Trimethoprim/Sulfamethoxazole <=20(S) Specimen Source: Urine clean catch us Generic External Data Provider LAB MICROBIOLOGY - GENERAL ORDERABLES Final Result Performing Organization Address [facility] Co de Phone Number [facility] [address] [place] [phone] * (ABNORMAL) Vitamin B12 (Cobalamin) and Folate Panel, Serum (04/06/2025 8:26 AM EDT) Vitamin B12 941(H) 200 - 900 pg/mL [facility] Comment:NORMAL 200-900 PG/ML INDETERMINATE 160-199 PG/ML DEFICIENT < 160 PG/ML Folate 13.9 > or = 4.0 ng/mL [facility] Comment:Reference Values:> o r = 4.0 ng/mL< 4.0 ng/mL suggests folate deficiency Methotrexate, aminopterin and folinic acid(leucovorin) are chemotherapeutic agents whose molecularstructures are similar to folate; therefore, the Architectfolate assay cannot be used for patients using these drugs. Blood Venous blood specimen / Unknown 04/06/2025 8:26 AM EDT 04/06/2025 8:26 AM EDT us Teena Otoole MD LAB BLOOD ORDERABLES Final Result Performing Organization Address City/[facility]/ZIP Co de Phone Number [facility] [address] [place] [phone] * (ABNORMAL) Iron And Total Iron Binding Capacity (04/06/2025 8:26 AM EDT) Pathologist [facility] Iron 65 30 - 160 mcg/dL [facility] Total Iron Binding Capacity 212(L) 228 - 428 mcg/dL [facility] Percent Iron Saturation 31 15 - 50 % [facility] Unsaturated Iron Binding 147 ug/dL [facility] Blood Venous blood specimen / Unknown 04/06/2025 8:26 AM EDT 04/06/2025 8:26 AM EDT us Teena Otoole MD LAB BLOOD ORDERABLES Final Result Performing Organization Address [facility]/ZIP Co de Phone Number [facility] [address] [place] [phone] * Ferritin (04/06/2025 8:26 AM EDT) [facility] Ferritin 104 10 - 250 ng/mL [facility] Blood Venous blood specimen / Unknown 04/06/2025 8:26 AM EDT 04/06/2025 8:26 AM EDT us Teena Otoole MD LAB BLOOD ORDERABLES Final Result Performing Organization Address City/[facility]/ZIP Co de Phone Number [facility] [address] [place] [phone] * (ABNORMAL) Basic Metabolic Panel (04/06/2025 8:26 AM EDT) [facility] Sodium 141 135 - 145 mmol/L [facility] Potassium 3.5 3.3 - 5.1 mmol/L [facility] Chloride 109(H) 96 - 108 mmol/L [facility] Carbon Dioxide 24 22 - 29 mmol/L [facility] Anion Gap 12 12 - 20 [facility] Urea Nitrogen (BUN) 9 9 - 16 mg/dL [facility] Creatinine, Serum 0.86 0.5 - 1.4 mg/dL [facility] Estimated Glomerular Filt Rate >60 [facility] Comment:Chronic Kidney Disea se: Estimated GFR < 60 mL/min/1.41m0Zziuae Kidney Disease: Estimated GFR < 15 mL/min/1.73m2 Glucose 88 60 - 115 mg/dL [facility] Calcium 8.8 8.4 - 10.2 mg/dL [facility] Blood Venous blood specimen / Unknown 04/06/2025 8:26 AM EDT 04/06/2025 8:26 AM EDT us Teena Otoole MD LAB BLOOD ORDERABLES Final Result [facility] [address] [place] [phone] * Lipid Panel, Standard (12/22/2024 8:37 AM EDT) Triglycerides 61 <150 mg/dL [facility] Comment:Desirable Triglyceri de: less than 150 mg/dLBorderline High Triglyceride 150-199 mg/dLHigh Triglyceride: 200-499 mg/dLVery High Triglyceride: greater than or equal to 5OO mg/dL Cholesterol 155 <200 mg/dL [facility] Comment:Desirable Cholestero l: less than 200 mg/dLBorderline High Cholesterol: 200-239 mg/dLHigh Cholesterol: greater than 239 mg/dL LDL Cholesterol Calculated 89 <100 mg/dL [facility] Comment:Desirable LDL: less than 100 mg/dLNear Optimal/Above Optimal LDL: 110- 129 mg/dLBorderline High LDL: 130-159 mg/dLHigh LDL: 160-189 mg/dLVery High LDL: greater than or equal to 190 mg/dL HDL Cholesterol 54 >40 mg/dL [facility] Comment:Desirable HDL: great er than 40 mg/dL Note: This HDL assay may give artificially low results in patients with liver disease. Blood Venous blood specimen / Unknown 12/22/2024 8:37 AM EDT 12/22/2024 11:05 AM EDT us Teena Otoole MD LAB BLOOD ORDERABLES Final Result [facility] [address] [place] [phone] * BI Mammogram Screening Tomosynthesis Bilateral (09/01/2024 11:55 AM EST) Anatomical Region Laterality Modality Breast Bilateral Mammography 09/01/2024 11:5 5 AM EST Narrative 09/07/2024 3:10 PM EST [address] [place] [address] Mammography Report Signed Patient: Dara Garcia MR#: [id number] 46 : 1980 Acct:[id number] Age/Sex: 44 / F ADM Date: 09/01/24 Loc: HO.MAMMO Attending Dr: Teena Otoole MD Ordering Physician: Teena Castillo MD Results: 1Negative Date of Service: 09/01/24 Follow Up: 1 Year From Orig ina Mammogram Procedure(s): MM tomosynthesis screening BI Accession Number(s): [id number] cc: Teena Castillo MD EXAMINATION: MM SCREENING [...] Liudmila Erickson DO 09/07/2024 03:07 PM EST RP Dictated By: Liudmila Erickson DO Signed By: <Electronically signed by Liudmila Erickson DO in OV> 09/07/24 1507 DD/ 1155 TD/TT: 09/01/24 1205 Stair Builder: Procedure Note Donotuseinterpreter, Image - 09/07/2024 [facility] [address] [place], [place] [address] Mammography Report Signed Patient: Angi Garcia#: [id number] 47 : 1980Acct:[id number] Age/Sex: 44 / FADM Date: 09/01/24 Loc: HO.MAMMO Attending Dr: Teena Otoole MD Ordering Physician: Teena Castillo MDResults: 1Negative Date of Service: 09/01/24Follow Up: 1 Year From Orig inal Mammogram Procedure(s): MM tomosynthesis screening BI Accession Number(s): [id number] cc: Teena Castillo MD EXAMINATION: MM SCREENING [...] Liudmila Erickson DO 09/07/2024 03:07 PM EST RP Dictated By: Liudmila Erickson DO Signed By: <Electronically signed by Liudmila Erickson DO in OV> 09/07/24 1507 DD/ 1155 TD/TT: 09/01/24 1205 Stair Builder: Teena Otoole MD IMG BI PROCEDURES Fin al Result * Hepatitis C Antibody with Reflex to HCV, RNA, Quantitative, Real-Time PCR (02/11/2024 6:14 AM EDT) Hepatitis C Antibody Nonreactive Nonreactive [facility] Comment:Antibodies to HCV no t detected; does not exclude early acuteHCV infection. Blood Venous blood specimen / Unknown 02/11/2024 6:14 AM EDT 02/11/2024 6:14 AM EDT Teena Otoole MD LAB BLOOD ORDERABLES Final Result [facility] [address] [place] [phone] * HPV mRNA E6/E7 w/Reflex to HPV Genotypes 16, 18/45 (05/01/2023 12:00 AM EDT) HPV nRNA E6/E7 Not Detected Not Detected [facility] Comment:Methodology: Transcr iption-Mediated AmplificationThis assay detects E6/E7 viral messenger RNA (mRNA) from 14high-risk HPV types (16,18,31,33,35,39,45,51,52,56,58,59,66,68).Cervical sources are required for HPV testing.If a vaginal source from a patient who has had atotal hysterectomy with removal of cervix wassubmitted, please contact the testing laboratoryfor alternative testing options.For additional information, please refer tohttp://education.[facility])/faq/ZVL311f4(This link if provided for information/educational purposes only.)THIS TEST WAS PERFORMED AT:[email or web address] [place] [phone] JUÁREZ MD HPV mRNA E6/E7 TNP [facility] HPV 16 RNA TNP [facility] HPV 18/45 RNA [facility] 05/01/2023 05/02/2023 10: 15 AM EDT us Rachel Gaytan CNM LAB CYTOLOGY ORDERABLES F inal Result [facility] [address] [place] [phone] * Pap Smear (05/01/2023 12:00 AM EDT) 05/01/2023 05/02/2023 10: 15 AM EDT Narrative [facility] - 05/24/2023 4:11 PM EDT ----- ------- Name: Dara Garcia Age/Sex: 42/F : 1980 Unit#: [id number] Attend Dr: RACHEL GAYTAN CNM Re05/01/23 Status: DEP REF Location: HO.HHCLNP Disch: ----- ------- SPEC : [id number] RECD: 05/02/23-5 STATUS: BRIDGET GARZA NUM: [id number] SUDARSHAN: 05/01/23-[address]: RACHEL GAYTAN CNM ENTERED: 05/05/23-1323 SP TYPE: Pap Smr OTHR DR: ORDERED: Pap Smear Interpretation Satisfactory for evaluation. Negative for intraepithelial lesion or malignancy. HPV mRNA E6/E7: NOT DETECTED This assay detects E6/E7 viral messenger RNA (mRNA) from 14 high-risk HPV types (16, 18, 31, 33, 35, 39, 45, 51, 52, 56, 58, 59, 66, 68) HPV testing performed by [facility], [place], [place]. See reference laboratory portion of the EMR for entire report. Clinical Information LMP:Unknown date Previous PAP test:Unknown date/findings Material Received ThinPrep-Cervical ----- ------- Signed (signature on file) Meseret Raygoza 05/24/23 1611 ----- ------- END OF REPORT Rachel Gaytan CNM LAB CYTOLOGY ORDERABLES F inal Result [facility] [address] [place] [phone] from Last 3 Months or Most Recently Relevant to Health Maintenance Insurance [place] [facility] MEDICAID STAND ADULT Care Teams Can Bander Operator Relationship Specialty Start Date End Date Teena Castillo MD [address] [place] [phone] PCP - General Family Medicine 03/18/19
--- OUTSIDE RECORDS SUMMARY | 2025-05-26 12:44 | XMS_ITS | Encounter Summary ---
Author Organization [employer] Address [address] [place] [address] Care Team Providers Care Turf Farm Worker Name Role Phone Teena Castillo MD Primary Care Provide r Reason for Visit * Reason Comments Med Refill Encounter Details Date Type Department Care Team ([facility] st Contact Info) Description 02/17/2025 Refill [facility] MEDICINE [address] [place], [place] [phone] Teena Castillo MD [address] [place], [place] [phone] Class 2 severe obesity due to excess [...] Description 05/27/2025 10:00 AM EDT Office Visit [facility] MEDICINE [address] [place] [address] Sean Lyles MD [address] [place] [address] documented as of this encounter Visit Diagnoses Diagnosis Class 2 severe obesity due to excess calories with serious comorbidity and body mass index (BMI) of 37.0 to 37.9 in adult (CMS/HCC) documented in this encounter Additional Health Concerns Assessment Noted Time PHQ-9 Depression Total Score: 17 025 3:24 PM EST documented as of this encounter Care Teams Turf Farm Worker Relationship Specialty Start Date End Date Teena Castillo MD [address] [place] [address] PCP - General Family Medicine 03/18/19 documented as of this encounter
--- OUTSIDE RECORDS SUMMARY | 2025-05-26 12:44 | XMS_ITS | Encounter Summary ---
Author Organization [employer] Address [address] [facility] [address] [facility] [address] [address] [place] [address] Care Team Providers Care Sock Turner Name Role Phone Teena Castillo MD Primary Care Provide r Reason for Visit * Reason Comments Med Refill Encounter Details Date Type Department Care Team ([facility] Contact Info) Description 09/28/2024 Refill [facility] MEDICINE [address] [place], [place] [phone] Teena Castillo MD [address] [place] [address] Class 2 severe obesity due to excess [...] Description 05/27/2025 10:00 AM EDT Office Visit [facility] MEDICINE [address] [place] [address] Sean Lyles MD [address] [place] [address] documented as of this encounter Visit Diagnoses Diagnosis Class 2 severe obesity due to excess calories with serious comorbidity and body mass index (BMI) of 37.0 to 37.9 in adult (CMS/HCC) documented in this encounter Additional Health Concerns Assessment Noted Time PHQ-9 Depression Total Score: 10 024 2:46 PM EDT documented as of this encounter Care Teams Sock Turner Relationship Specialty Start Date End Date Teena Castillo MD [address] [place] [address] PCP - General Family Medicine 03/18/19 documented as of this encounter
--- OUTSIDE RECORDS SUMMARY | 2025-05-26 12:44 | XMS_ITS | Encounter Summary ---
Author Organization [employer] Address [address] [place] [address] Care Team Providers Care Pediatric Oncologist Name Role Phone Teena Castillo MD Primary Care Provide r Reason for Visit * Reason Comments Med Refill Encounter Details Date Type Department Care Team ([facility] Contact Info) Description 08/11/2023 Refill [facility]EDS [address] [place], [place] [phone] Nahid Mak MD [address] [place] [address] Essential hypertension Social History Tobacco Use Types [...] Description 05/27/2025 10:00 AM EDT Office Visit [facility] MEDICINE [address] [place] [phone] Sean Lyles MD [address] [place] [address] documented as of this encounter Visit Diagnoses Diagnosis Essential hypertension Unspecified essential hypertension documented in this encounter Additional Health Concerns Assessment Noted Time PHQ-9 Depression Total Score: 0 04/04/20 23 2:14 PM EDT documented as of this encounter Care Teams Pediatric Oncologist Relationship Specialty Start Date End Date Teena Castillo MD [address] [place] [phone] PCP - General Family Medicine 03/18/19 documented as of this encounter
--- OUTSIDE RECORDS SUMMARY | 2025-05-26 12:44 | XMS_ITS | Clinical Summary ---
Author Organization [facility] ity Address [address] [place] [address] Care Team Providers Care Cd Technician Name Role Phone Teena Castillo MD [...] age to complete this topic Care Teams Cd Technician Relationship Specialty Start Date End Date Teena Castillo MD [address] [place] [phone] PCP - General Internal Medicine 12/31/21
--- OUTSIDE RECORDS SUMMARY | 2025-05-26 12:44 | XMS_ITS | Encounter Summary ---
Author Organization [employer] Address [address] [place] [address] Care Team Providers Care Operations Clerk Name Role Phone Teena Castillo MD Primary Care Provide r Reason for Visit * Reason Onset Date Comments Med Refill 05/15/2025 Encounter Details Date Type Department Care Team ([facility] st Contact Info) Description 05/15/2025 Refill [facility] MEDICINE [address] [place] [address] Melly Neff, [address] [place] [address] Class 1 obesity due to excess calories with serious comorbidity and body mass index (BMI) of 34.0 to 34.9 in adult Social History Tobacco Use Types Packs/Day Years [...] Description 05/27/2025 10:00 AM EDT Office Visit [facility] MEDICINE [address] [place] [address] Sean Lyles MD [address] [place] [address] documented as of this encounter Visit Diagnoses Diagnosis Class 1 obesity due to excess calories with serious comorbidity and body mass index (BMI) of 34.0 to 34.9 in adult documented in this encounter Additional Health Concerns Assessment Noted Time PHQ-9 Depression Total Score: 8 04/22/20 25 8:15 AM EDT documented as of this encounter Care Teams Operations Clerk Relationship Specialty Start Date End Date Teena Castillo MD [address] [place] [address] PCP - General Family Medicine 03/18/19 documented as of this encounter
--- OUTSIDE RECORDS SUMMARY | 2025-05-26 12:44 | XMS_ITS | Encounter Summary ---
Author Organization [employer] Address [address] [place] [address] Care Team Providers Care Staffing Recruiter Name Role Phone Teena Castillo MD Primary Care Provide r Encounter Details Date Type Department Care Team (Latest Contact Info) Description 05/26/2025 Travel Social History Tobacco Use Types Packs/Day [...] AM EDT documented as of this encounter Functional Status * Over the [...] AM EDT Brooke Majano MA * Feeling down, depressed, or hopeless Answer Date of Assessment Author More than half the days 05/26/2025 11:28 AM EDT Brooke Majano MA * Trouble falling or staying asleep, or sleeping too much Answer Date of Assessment Author More than half the days 05/26/2025 11:28 AM SHERITAT Brooke Majano MA * Feeling tired or [...] 05/26/2025 11:28 AM Brooke Mccabe MA * Trouble concentrating on things, such [...] 11:28 AM SHERITAT Brooke Majano MA * Thoughts that you would be better off or hurting yourself in some way Answer Date of Assessment Author Not at all 05/26/2025 11:28 AM SHERITAT Brooke Majano MA * Patient Health Questionnaire-9 Score Answer Date of Assessment Author 10 05/26/2025 11:28 AM EDT Brooke Majano MA * How difficult have [...] or on edge 3 05/26/2025 11:28 AM EDT Brooke Majano MA Not being able to stop or co ntrol worrying 3 05/26/2025 11:28 AM SHERITAT Brooke Majano MA Worrying too much about diff erent things 3 05/26/2025 11:28 AM SHERITAT Brooke Majano MA Trouble relaxing 1 05/26/2025 11:28 AM SHERITAT Brooke Majano MA Being so restless that it is hard to sit still 1 05/26/2025 11:28 AM Brooke Mccabe MA Becoming easily annoyed or irritable 2 05/26/2025 11:28 AM SHERITAT Brooke Majano MA Feeling afraid as if somethi ng awful might happen 1 05/26/2025 11:28 AM SHERITAT Brooke Majano MA LANI-7 Total Score 14 05/26/2025 11:28 AM Brooke Mccabe MA documented as of this encounter Plan of Treatment Upcoming Encounters Date Type Department Care Team (Late st Contact Info) Description 05/27/2025 10:00 AM EDT Office Visit [facility] MEDICINE [address] [place] [address] Sean Lyles MD [address] [place] [address] documented as of this encounter Visit Diagnoses Not on filedocumented in this encounter Additional Health Concerns Assessment Noted Time PHQ-9 Depression Total Score: 10 05/26/ 025 11:28 AM EDT documented as of this encounter Care Teams Staffing Recruiter Relationship Specialty Start Date End Date Teena Castillo MD [address] [place] [address] PCP - General Family Medicine 03/18/19 documented as of this encounter
[2025-05-26 13:35] LABS: Anion Gap 13 (12-20); Blood Urea Nitrogen 9 mg/dL (9-16); Calcium 9.2 mg/dL (8.4-10.2); Carbon Dioxide 25 mmol/L (22-29); Chloride 106 mmol/L (96-108); Estimated Glomerular Filt Rate > 60; Potassium 3.5 mmol/L (3.3-5.1); Sodium 140 mmol/L (135-145)
== END 2025-05-26 11:24 | disposition home or self-care (01) ==
LOC: HO.HHCL 11:23
PROVIDERS: PCP Internal Medicine
DX: R53.83 Other fatigue (principal); M54.50 Low back pain, unspecified; G89.29 Other chronic pain
CPT/HCPCS: 36415; 72100; 80048

== ENCOUNTER → 2025-05-26 11:52 | Outpatient (BNV) | payer MEDICAID, SELFPAY | PROVIDERS: PCP Internal Medicine; Visit Provider Radiology Diagnostic Radiology | DX: M54.50 Low back pain, unspecified (principal) | CPT/HCPCS: 72100 ==

== ENCOUNTER 2025-06-22 06:59 | Emergency (ER) | payer MEDICAID, SELFPAY ==
--- NOTE | ~2025-06-22 | CT_ITS ---
EXAMINATION: CT ABDOMEN AND PELVIS WITH CONTRAST CLINICAL INFORMATION: Suprapubic pain, back pain. COMPARISON: 07/26/2018. TECHNIQUE: Multidetector volumetric images were obtained from the superior aspect of the liver through the pubic symphysis following administration 85 mL of Omnipaque 350 intravenous contrast. Sagittal and coronal reformatted images were obtained on the technologist's workstation. Oral contrast: No This CT examination was performed using dose optimization techniques as appropriate, variously including the following: *Automated exposure control *Adjustment of mA and/or kV according to patient size (this includes techniques or standardized protocols for targeted exams where dose is matched to indication/reason for exam; i.e. extremities or head) *Use of iterative reconstruction technique FINDINGS: LUNG BASES: Lung bases are clear. There are no effusions. The heart size is normal. LIVER, GALLBLADDER, AND BILIARY TREE: The liver is normal in size, shape, and attenuation. No focal hepatic lesion or biliary ductal dilatation is present. The gallbladder is unremarkable with no evidence of radiopaque gallstones, gallbladder wall thickening, or obvious pericholecystic inflammatory changes. PANCREAS: Unremarkable. SPLEEN: Unremarkable. ADRENAL GLANDS: There is mild left hyperplasia. The right is normal. KIDNEYS AND URETERS: The kidneys are normal in size, shape, and attenuation. No hydronephrosis, hydroureter, or calculi seen. No perinephric stranding. There are small left-sided subcentimeter simple cysts, including parapelvic cysts. BLADDER: Poorly distended but grossly normal. GASTROINTESTINAL TRACT: Normal appendix. The stomach is decompressed. There has been a prior gastric sleeve procedure. The duodenum is normal. The small bowel is normal in caliber and course. The colon is normal in caliber and course. No wall thickening or inflammation is evident. The rectum is normal. PERITONEUM: No free intraperitoneal air. There is trace fluid in the pelvic recesses, presumably physiologic. ABDOMINAL WALL: No significant hernia is appreciated. LYMPH NODES: No abnormal lymphadenopathy is present. VASCULAR: Unremarkable. PELVIC VISCERA: There has been a hysterectomy. There is a 2.7 cm simple appearing left ovarian cyst. There are no adnexal masses. OSSEOUS STRUCTURES: No suspicious lytic or blastic bone lesions. Mild degenerative changes of the spine. CT/CT abdomen pelvis w IV con IMPRESSION: 1. No acute findings in the abdomen or pelvis. 2. Prior gastric sleeve procedure. 3. 2.7 cm simple left appearing ovarian cysts. 4. Ancillary findings as discussed. Electronically signed by: Ray Tamez MD 06/22/2025 09:45 AM EDT RP
[2025-06-22 07:07] VITALS: BP 109/57; PULSE 95; RESP 16; TEMP 36.5; O2SAT 94; BMI 31.7
[2025-06-22 07:32] VITALS: BP 111/68; PULSE 94; RESP 18; O2SAT 96
--- NOTE | 2025-06-22 07:36 | ED.ABDPAIN ---
HPI - Abdominal Pain General Chief Complaint: Abdominal Pain Stated Complaint: Lower back pain Time Seen by Provider: 06/22/25 07:17 Source: patient and RN notes reviewed Mode of arrival: ambulatory Limitations: no limitations History of Present Illness ED Provider: Meseret Del Cid PA-C HPI narrative: This is a 45-year-old female, with a past medical history of morbid obesity status post lap sleeve gastrectomy, restless leg syndrome, bipolar disorder, depression, vertigo, GERD, hypertension, arthritis, migraines, unstable angina, and nonischemic cardiomyopathy, who presents emergency department with concerns of lower abdominal pain, dysuria, and vaginal sensitivity. She also reports intermittent spotting throughout the day. No nausea, vomiting, diarrhea, fevers. She does report generalized weakness. Patient states that her symptoms started approximately a month ago and she states that despite having 2 courses of antibiotics, she continues to have itching, burning in her pelvic region, as well as suprapubic pain, and lower back pain. She denies any fevers or chills. No chest pain or shortness for breath. No vomiting or diarrhea. She does endorse some constipation however states that this is chronic for her, no changes. She had a total hysterectomy as well as a cesearan section MD elicited complaint: abdominal pain Pertinent past history: constipation Severity: moderate Quality: aching Migration to: no migration Exacerbating factors: nothing Relieving factors: nothing Associated symptoms: denies other symptoms Related Data Home Medications ?Medication ?Instructions ?Recorded ?Confirmed duloxetine 60 mg capsule,delayed 60 mg PO DAILY 11/06/21 05/11/25 release meclizine 25 mg tablet 50 mg PO BID PRN Vertigo 11/06/21 05/11/25 metoprolol succinate 50 mg 50 mg PO DAILY 11/06/21 05/11/25 tablet,extended release 24 hr cholecalciferol (vitamin D3) 25 25 mcg PO DAILY 02/11/23 05/11/25 mcg (1,000 unit) capsule (Vitamin D3) ferrous sulfate 325 mg (65 mg 325 mg PO DAILY 02/11/23 05/11/25 iron) tablet (FeroSul) multivitamin 1 tab PO DAILY 02/11/23 05/11/25 amlodipine 10 mg tablet 10 mg PO DAILY 06/17/23 05/11/25 duloxetine 20 mg capsule,delayed 20 mg PO DAILY 12/20/24 05/11/25 release acetaminophen 500 mg tablet 500 mg PO Q6H PRN mild pain 01/25/25 05/11/25 amoxicillin 500 mg capsule 500 mg PO Q8H 01/25/25 05/11/25 baclofen 10 mg tablet 10 mg PO TID 01/25/25 05/11/25 buspirone 10 mg tablet 10 mg PO TID anxiety 01/25/25 05/11/25 ibuprofen 600 mg tablet 600 mg PO Q6H PRN mild pain 01/25/25 05/11/25 Held on 01/25/25. Instructions: Resume on 02/02/25. further use will be decided after angiogram mirtazapine 7.5 mg tablet 7.5 mg PO BEDTIME insomnia 01/25/25 05/11/25 vitamin B complex-folic acid 0.4 1 tab PO DAILY 01/25/25 05/11/25 mg tablet (B Complex 1 (with folic acid)) tirzepatide (weight loss) 10 mg subcut QWEEK 02/15/25 05/11/25 mg/0.5 mL subcutaneous pen injector (Zepbound) Previous Rx's ?Medication ?Instructions ?Recorded empagliflozin 10 mg tablet 10 mg PO DAILY #90 tabs 05/11/25 sacubitril 24 mg-valsartan 26 mg 1 tab PO BID #90 tabs 05/11/25 tablet cefuroxime axetil 250 mg tablet 250 mg PO BID 7 days #14 tabs 05/15/25 cefpodoxime 200 mg tablet 200 mg PO BID 10 days #20 tabs 06/22/25 phenazopyridine 100 mg tablet 100 mg PO TID 6 doses #6 tabs 06/22/25 (Pyridium) Allergies Allergy/AdvReac Type Severity Reaction Status Date / Time No Known Allergies Allergy Verified 06/22/25 07:14 Review of Systems Review of Systems Constitutional : No Fever, No Chills ENT/Mouth : No sore throat, No Rhinorrhea Eyes: No Eye Pain, No Swelling, No Redness Cardiovascular : No Chest Pain, No SOB Respiratory : No Cough, No Sputum Gastrointestinal : + Nausea, No Vomiting, No Diarrhea, No abdominal Pain Genitourinary : + Dysuria, +Hematuria Musculoskeletal : No joint pain, No Myalgias, No Joint Swelling Skin : No Skin Lesions Neuro : No Weakness, No Numbness, No Headache All other systems reviewed and are negative Yes all other systems are reviewed and are negative Constitutional: Reports as per [facility] Past Medical History Medical History Steatosis, liver BMI 38.0-38.9,adult BMI 39.0-39.9,adult Obesity Vitamin A deficiency H. pylori infection GERD (gastroesophageal reflux disease) Obstructive sleep apnea on CPAP Morbid obesity Excessive daytime sleepiness Anemia Bipolar 1 disorder Depression Arthritis Migraine Fibromyalgia Sleep apnea Vertigo HTN (hypertension) Surgical History S/P cardiac cath S/P laparoscopic sleeve gastrectomy Hx of tubal ligation Hx of section Family History Family History Mother Hypertension Heart problem Arthritis Diabetes Pacemaker Father Vitiligo Sister No problems noted. Sister No problems noted. Sister No problems noted. Sister No problems noted. Sister No problems noted. Brother No problems noted. Brother No problems noted. Son No problems noted. Son No problems noted. Social History Social History Household Members: Spouse and Children Are you a primary healthcare administration internship to a significant other at home: No Do you presently have visiting nurse or other home services: No Alcohol intake: current Alcohol intake frequency: does not drink Patient Tobacco Use Status: Never used Tobacco service: No Current occupational status: disabled Physical Exam ED Vital Signs: Vital Signs - 24 hr 06/22/25 07:07 06/22/25 07:32 Temperature 97.7 F Pulse Rate 95 94 Respiratory Rate 16 18 Blood Pressure 109/57 L 111/68 Pulse Oximetry 94 96 Oxygen Delivery Method Room Air Room Air BMI result Body Mass Index 31.7 Const General: cooperative, comfortable and no acute distress Orientation/consciousness: patient oriented x3 Limitations: no limitations HENMT Head: Yes normal to inspection, Yes normocephalic and Yes atraumatic Ears: hearing grossly normal bilaterally General nose exam: Normal external nose present Face and sinus: Yes normal facial exam Mouth: Normal oral and palatal mucosa present, oropharynx normal and moist mucous membranes Throat: Yes posterior oropharynx normal Eyes General: appearance normal, both eyes and all related structures Eyelids: Yes eyelids normal Conjunctivae: conjunctivae normal Sclerae: sclerae normal Pupils: Equal, round and reactive pupils present EOM: EOMs intact bilaterally Neck Neck: Yes normal visual inspection, Yes full ROM and Yes no lymphadenopathy Lymphatic: no lymphadenopathy noted Chest Chest palpation & inspection: normal inspection of the chest Resp Effort & Inspection: normal respiratory effort and able to speak in complete sentences Auscultation: clear to auscultation bilaterally, no crackles, no rales, no rhonchi and no wheezes Cardio Rate: regular rate Rhythm: regular rhythm Heart sounds: S1 normal heart sound present and S2 normal heart sound present GI Other: Abdomen is soft, with tenderness palpation in the suprapubic region, no rebound or guarding. Inspection: Yes normal to inspection External Female Exam: normal external appearance Speculum Exam - Vagina: normal appearance of the vagina, normal palpation and normal vaginal discharge Speculum Exam - Cervix: normal appearance of the cervix Bimanual exam- vagina & uterus: normal palpation Skin General skin exam: no rashes or lesions noted Trauma: no lacerations or abrasions Wounds: no wounds Neuro General: patient oriented x3 and moves all extremities Cranial nerves: Yes Equal, round and reactive pupils present Extrem General: Yes normal to inspection Right upper extremity: normal to inspection Left upper extremity: normal to inspection Right lower extremity: normal to inspection Left lower extremity: normal to inspection Medical Decision Making Medical Decision Making MDM Narrative: This is a 45-year-old female who presents emergency department with concerns of abdominal pain, dysuria, urinary urgency. On arrival, vital signs within normal limits. She is speaking full sentences under no acute distress. Abdomen is soft with tenderness palpation in the suprapubic region, no rebound or guarding. Differential diagnoses include PID, UTI, nephrolithiasis, Carlene. Will obtain labs, UA, medicate with IV Tylenol. We will also perform pelvic exam for further examination. 8:29 AM 06/22/2025 (Meseret Del Cid PA-C): Pelvic examination was performed, no acute abnormality seen. Labs returned, no leukocytosis, stable H&H, chemistry with no significant electrolyte derangement. Urine with high specific gravity, proteinuria, glucose, nitrites, positive blood, positive leuk esterases, rbc's, and wbc's. 4+ bacteria seen. Urine does appear to be infected therefore will dose with IV antibiotics and IV fluids. We will also obtain CT abdomen and pelvis given suprapubic abdominal pain, and bilateral flank pain. 10:10 AM 06/22/2025 (Meseret Del Cid PA-C): CT scan revealing no acute findings, prior gastric sleeve, and a 2.7 cm simple left appearing cyst, there are no evidence of calculi, hydronephrosis or perinephric stranding. She has no severe left-sided lower abdominal pain therefore further imaging in regards to left ovarian cyst not indicated at this time. Patient tested negative for bacterial vaginosis, Carlene, and Trichomonas. Gonorrhea and chlamydia still pending. Urine consistent with urinary tract infection. Will treat with cefpodoxime given low back pain with a associating symptoms. Patient given strict return precautions. Patient stable for discharge. Differential Diagnosis Differential Diagnoses: The differential diagnosis associated with the presentation includes See above Lab Data [facility] Lab Attestation statement: I reviewed the patient's lab results. See [facility] 06/22/25 07:44 06/22/25 07:44 Labs: Lab Results 06/22/25 06/22/25 06/22/25 Range/Units 07:44 07:56 08:45 WBC 8.9 (4.8-10.8) X10*3/uL RBC 5.28 (4.20-5.50) X10*6/uL Hgb 14.2 (12.0-16.0) g/dl Hct 42.6 (37.0-47.0) % MCV 80.7 (80.0-98.0) fL MCH 26.9 L (27.0-33.0) pg MCHC 33.3 (31.0-35.0) g/dl RDW 14.3 (11.0-16.0) % Plt Count 256 (160-400) X10*3/uL MPV 9.7 (9.4-12.3) fL Immature Gran % (Auto) 0.7 H (0.0-0.4) % Neut % (Auto) 78.0 H (45-73) % Lymph % (Auto) 11.0 L (20-40) % [place] % (Auto) 7.8 (2-11) % Eos % (Auto) 1.8 (0-4) % Baso % (Auto) 0.7 (0-2) % Lymph # (Auto) 1.0 L (1.2-4.9) X10*3/uL [place] # (Auto) 0.7 (0.1-1.2) X10*3/uL Eos # (Auto) 0.2 (0.0-0.4) X10*3/uL Baso # (Auto) 0.1 (0.0-0.2) X10*3/uL Abs Immat Gran (auto) 0.06 H (0.00-0.03) X10*3/uL Absolute Neuts (auto) 6.9 (2.0-8.3) x10*3/uL Absolute Nucleated RBC 0.000 (0.0-0.012) X10*3/uL Nucleated RBC % (auto) 0.0 (0.0-0.2) /100WBC Sodium 141 (135-145) mmol/L Potassium 3.8 (3.3-5.1) mmol/L Chloride 111 H (96-108) mmol/L Carbon Dioxide 22 (22-29) mmol/L Anion Gap 12 (12-20) BUN 11 (9-16) mg/dL Creatinine 0.95 (0.5-1.4) mg/dL Estim Creat Clear Calc 79.1 Estimated GFR > 60 Random Glucose 110 (60-115) mg/dL Calcium 9.1 (8.4-10.2) mg/dL Total Bilirubin 0.4 (0.0-1.0) mg/dL AST 29 (5-31) U/L ALT 20 (0-31) U/L Alkaline Phosphatase 89 (39-117) U/L Total Protein 7.5 (6.5-8.0) g/dL Albumin 3.9 (3.5-5.0) g/dL Urine Color Yellow Urine Appearance Cloudy Urine pH 6.0 (5.0-9.0) Ur Specific [place] >= 1.030 H (1.005-1.025) Urine Protein 30 (1+) H (Neg-Trace) mg/dL Urine Glucose (UA) >=1000 H (Negative) mg/dL Urine Ketones Trace (Negative) mg/dL Urine Blood Moderate (2+) H (Negative) Urine Nitrite Positive H (Negative) Ur Leukocyte Esterase Moderate (2+) H (Negative) Urine RBC >20 H (0-2) /HPF Urine WBC >50 H (0-5) /HPF Ur Squamous Epith Cells 0-2 (0-2) /HPF Urine Bacteria 4+ (None Seen) Hyaline Casts 0-2 (0-2) /LPF Chlam trachomat DNA PCR NOT DETECTED (Not Detect.) N.gonorrhoeae DNA (PCR) NOT DETECTED (Not Detect.) T. vaginalis (PCR) NOT DETECTED (Not Detect) Bact vaginosis (PCR) NEGATIVE (Negative) C. krusei/glabrata (PCR) NOT DETECTED (Not Detect) Carlene group (PCR) NOT DETECTED (Not Detect) T. vaginalis Amp RNA Cancelled Radiology Impression Discussion of test interpretation with radiology: I have reviewed the radiologist's reading. Radiologist Impression: FINDINGS: LUNG BASES: Lung bases are clear. There are no effusions. The heart size is normal. LIVER, GALLBLADDER, AND BILIARY TREE: The liver is normal in size, shape, and attenuation. No focal hepatic lesion or biliary ductal dilatation is present. The gallbladder is unremarkable with no evidence of radiopaque gallstones, gallbladder wall thickening, or obvious pericholecystic inflammatory changes. PANCREAS: Unremarkable. SPLEEN: Unremarkable. ADRENAL GLANDS: There is mild left hyperplasia. The right is normal. KIDNEYS AND URETERS: The kidneys are normal in size, shape, and attenuation. No hydronephrosis, hydroureter, or calculi seen. No perinephric stranding. There are small left-sided subcentimeter simple cysts, including parapelvic cysts. BLADDER: Poorly distended but grossly normal. GASTROINTESTINAL TRACT: Normal appendix. The stomach is decompressed. There has been a prior gastric sleeve procedure. The duodenum is normal. The small bowel is normal in caliber and course. The colon is normal in caliber and course. No wall thickening or inflammation is evident. The rectum is normal. PERITONEUM: No free intraperitoneal air. There is trace fluid in the pelvic recesses, presumably physiologic. ABDOMINAL WALL: No significant hernia is appreciated. LYMPH NODES: No abnormal lymphadenopathy is present. VASCULAR: Unremarkable. PELVIC VISCERA: There has been a hysterectomy. There is a 2.7 cm simple appearing left ovarian cyst. There are no adnexal masses. OSSEOUS STRUCTURES: No suspicious lytic or blastic bone lesions. Mild degenerative changes of the spine. CT/CT abdomen pelvis w IV con IMPRESSION: 1. No acute findings in the abdomen or pelvis. 2. Prior gastric sleeve procedure. 3. 2.7 cm simple left appearing ovarian cysts. 4. Ancillary findings as discussed. Electronically signed by: aRy Tamez MD 06/22/2025 09:45 AM EDT Dictated By: Ray Tamez MD Medications Administered Discontinued Medications Generic Name Dose Route Start Last Admin Trade Name Freq PRN Reason Stop Dose Admin Ceftriaxone Sodium 1 gm 06/22/25 08:32 06/22/25 08:52 Ceftriaxone Sodium 1 Gm Vial IVPUSH 06/22/25 08:33 1 gm ONCE ONE Administration Acetaminophen 1,000 mg in 100 mls @ 400 mls/hr 06/22/25 08:02 06/22/25 08:27 Ofirmev IV 06/22/25 08:16 Infused ONCE ONE Infusion Sodium Chloride 1,000 mls @ 999 mls/hr 06/22/25 08:31 06/22/25 10:42 Ns IV 06/22/25 09:31 Infused .Q1H1M ONE Infusion Iohexol 85 ml 06/22/25 09:03 06/22/25 09:04 Iohexol 350 Mg/Ml 100 Ml Infus..Btl IV 06/22/25 09:04 85 ml ONCE ONE Administration Phenazopyridine HCl 100 mg 06/22/25 10:31 06/22/25 10:43 Phenazopyridine Hcl 100 Mg Tablet PO 06/22/25 10:32 100 mg ONCE ONE Administration Discharge Plan Discharge Clinical Impression: Urinary tract infection Patient Disposition: Home, Self-Care Instructions: Urinary Tract Infection in Women (ED) Additional Instructions: You were seen in the emergency department and you were found to have a urinary tract infection. Your CT of your abdomen does not show any evidence of any other acute findings. You do have a left ovarian cyst which you should follow-up with an OBGYN about. Call to make an appointment. Take prescribed antibiotic as directed, finish the entire course even if your symptoms improve. Drink plenty of fluids get plenty of rest. You do have several tests still pending at this time, we will call you if they are positive. If any new or worsening symptoms occur including but not limited to worsening pain, high fevers, chills, chest pain, shortness of breath, please seek emergent care. Prescriptions: New cefpodoxime 200 mg tablet 200 mg PO BID 10 Days Qty: 20 0RF Rx Instructions: must administer with a meal/food phenazopyridine [Pyridium] 100 mg tablet 100 mg PO TID Qty: 6 0RF No Action amoxicillin 500 mg capsule 500 mg PO Q8H acetaminophen 500 mg tablet 500 mg PO Q6H PRN (Reason: mild pain) buspirone 10 mg tablet 10 mg PO TID ibuprofen 600 mg tablet 600 mg PO Q6H PRN (Reason: mild pain) mirtazapine 7.5 mg tablet 7.5 mg PO BEDTIME vitamin B complex-folic acid [B Complex 1 (with folic acid)] 0.4 mg tablet 1 tab PO DAILY baclofen 10 mg tablet 10 mg PO TID cefuroxime axetil 250 mg tablet 250 mg PO BID 7 Days Qty: 14 0RF duloxetine 60 mg capsule,delayed release(DR/EC) 60 mg PO DAILY metoprolol succinate 50 mg tablet extended release 24 hr 50 mg PO DAILY meclizine 25 mg tablet 50 mg PO BID PRN (Reason: Vertigo) ferrous sulfate [FeroSul] 325 mg (65 mg iron) tablet 325 mg PO DAILY cholecalciferol (vitamin D3) [Vitamin D3] 25 mcg (1,000 unit) capsule 25 mcg PO DAILY multivitamin Tablet 1 tab PO DAILY amlodipine 10 mg tablet 10 mg PO DAILY duloxetine 20 mg capsule,delayed release(DR/EC) 20 mg PO DAILY Zepbound 10 mg/0.5 mL pen injector subcut QWEEK empagliflozin 10 mg tablet 10 mg PO DAILY Qty: 90 3RF sacubitril-valsartan 24-26 mg tablet 1 tab PO BID Qty: 90 3RF Interventions: ED Discharge Assessment Last Done: 06/22/25 10:57 Discharge Date/Time: 06/22/25 11:04 Print Language: Albanian
--- NOTE | 2025-06-22 07:46 | PC.NURSE ---
45 F presents to ED with lower abdominal/groin pain and R back pain x 1 month, had UTI, completed abx, continuing to have burning wit hurination. A+Ox4, calm, cooperative. RR even and unlabored, denies CP or SOB. Pt ambulates without difficulty.
[2025-06-22 07:52] LABS: MANUAL DIFF FLAG NO
--- OUTSIDE RECORDS SUMMARY | 2025-06-22 07:58 | XMS_ITS | Encounter Summary ---
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 Wood Strip Block Floor Installer Name Role Phone Teena Castillo MD Primary Care Provide r Reason for Visit * Reason Comments Med Refill Encounter Details Date Type Department Care Team ([facility] st Contact Info) Description 06/06/2025 Refill [facility] [address] [place], [place] [id number] Teena Castillo MD [address] [place] [address] Class 1 obesity due to excess calories [...] as of this encounter Plan of Treatment Not on file documented as of this encounter Visit Diagnoses Diagnosis Class 1 obesity due to excess calories with serious comorbidity and body mass index (BMI) of 34.0 to 34.9 in adult documented in this encounter Additional Health Concerns Assessment Noted Time PHQ-9 Depression Total Score: 10 025 11:28 AM EDT documented as of this encounter Care Teams Wood Strip Block Floor Installer Relationship Specialty Start Date End Date Teena Castillo MD [address] [place] [address] PCP - General Family Medicine 03/18/19 documented as of this encounter
--- OUTSIDE RECORDS SUMMARY | 2025-06-22 07:58 | XMS_ITS ---
Author Organization [employer] Address [address] [place] [address] Care Team Providers Care Zoning Assistant Name Role Phone Teena Castillo MD Primary Care Provide r CM Complex Status:Enrolled (Active) Start date:01/26/2025 Enrollment date:04/22/2025 Enrollment reason:ADT Feed Overview ADT- Pt admitted to [facility] on 01/25/25. Case Team Name Relationship Phone Anton Cárdenas RN(Responsible Staff) Registered Nurse [phone] Continued Care and Services Coordination
--- OUTSIDE RECORDS SUMMARY | 2025-06-22 07:58 | XMS_ITS | Clinical Summary ---
Author Organization [employer] Address [address] [facility] [facility] [address] [place] [address] Care Team Providers Care Cloth Measurer Name Role Phone Teena Castillo MD Primary [...] (BMI) of 37.0 to 37.9 in adult ([facility]) Inject 0.5 mL (10 mg) under the skin 1 (one) time per week. INJECT ONE PEN (=10 MG) SUBCUTANEOUSLY ONCE A WEEK 2 mL Active cholecalciferol (Vitamin D High Potency) 25 MCG (1000 UT) capsuleIndicati ons:Vitamin deficiency TAKE 1 CAPSULE BY MOUTH EVERY DAY 90 capsule 1 Active baclofen (Lioresal) 10 MG tabletIndicatio ns:Fibromyositi s Take 1 tablet (10 mg) by mouth 3 times daily. 90 tablet Active acetaminophen (Tylenol) 500 MG tablet Take 1 tablet (500 mg) by mouth every 6 (six) hours if needed for mild pain for up to 20 doses. 20 tablet Active chlorhexidine (Peridex) 0.12 % solution Swish 15 mL morning and night for 1 minute. Spit, do not swallow. Do not eat or drink for 30 minutes following use. 473 mL Active acetaminophen (Tylenol) 500 MG tablet Take 1 tablet (500 mg) by mouth every 6 (six) hours if needed for mild pain for up to 20 doses. 20 tablet 025 Active ibuprofen 600 MG tablet Take 1 tablet (600 mg) by mouth every 6 (six) hours if needed for mild pain for up to 20 doses. 20 tablet Active metoprolol succinate XL (Toprol-XL) 50 MG 24 hr tablet TAKE 1 TABLET BY MOUTH EVERY MORNING, DO NOT BREAK, CRUSH, DISSOLVE OR CHEW 90 tablet 1 Active hydroCHLOROthia zide 12.5 MG tabletIndicatio ns:Essential hypertension Take 1 tablet (12.5 mg) by mouth Once per day. 90 tablet 3 025 2025 Active Zepbound 12.5 MG/0.5ML solution auto-injectorIn dications:Class 1 obesity due to excess calories with serious comorbidity and body mass index (BMI) of 34.0 to 34.9 in adult INJECT ONE PEN (=12.5MG) SUBCUTANEOUSLY ONCE A WEEK DIRECTED 2 mL 1 025 Active Ferrous Sulfate (iron) 325 (65 Fe) MG tabletIndicatio ns:Vitamin deficiency TAKE 1 TABLET BY MOUTH EVERY DAY 90 tablet 1 Active Jardiance 10 MG Take 1 tablet by mouth Once per day. Active ascorbic acid (Vitamin C) 500 MG tablet take one daily Active busPIRone (Buspar) 15 MG tablet TAKE [...] per day. 30 capsule 1 025 Active Tirzepatide-Jem ght Management (Zepbound) 15 MG/0.5ML solution auto-injectorIn dications:Class 1 obesity Inject 0.5 mL (15 mg) under the skin 1 (one) time per week. 2 mL 3 Active hydroquinone 4 % creamIndication s:Melasma APPLY TOPICALLY TWICE A DAY 28.35 g 025 Active hydroquinone 4 % creamIndication s:Melasma APPLY TOPICALLY TWICE A DAY 28.35 g 025 2024 Discontinued(R eorder (will not trigger notification to Pharmacy)) nitrofurantoin, macrocrystal-mo nohydrate, (Macrobid) 100 MG capsuleIndicati ons:Dysuria Take 1 capsule (100 mg) by mouth 2 times daily for 7 days. 14 capsule 025 2024 Active Problems Problem Noted Date Diagnosed Date Chronic midline low back pain 05/26/2025 Assessment & Plan (05/26/2025 1:08 PM EDT): I will order an x-ray I will prescribe meloxicam 15 mg daily Continue with baclofen as prescribed Patient will be contacted with results Chronic right shoulder pain 05/26/2025 Assessment & Plan (05/26/2025 1:08 PM EDT): Meloxicam as above Positive TERRENCE (antinuclear antibody) 05/26/2025 Assessment & Plan (05/26/2025 1:07 PM EDT): New rheumatology referral done today Dysuria 05/26/2025 Assessment & Plan (05/26/2025 1:07 PM EDT): Patient was recently seen in the emergency room on May 15, 2025 she was diagnosed with a UTI and it was prescribed for her cefuroxime she reports she took the medication but she continues to have burning sensation with urination, I we will prescribe for her Macrobid 100 mg twice daily Discoloration of skin of face 02/22/2025 Chronic [...] 1 disorder 01/20/2025 Class 1 obesity 01/20/2025 Assessment & Plan (05/26/2025 1:06 PM EDT): Extensive discussion about weight loss, healthy diet and exercise done today She is currently on Zepbound 12.5 mg weekly plan is for her to increase to 15 mg weekly I will continue to monitor for side effects and weight History of gastric restrictive surgery Migraines 01/20/2025 [...] (obstructive sleep apnea) 02/02/2024 Assessment & Plan (05/26/2025 1:10 PM EDT): Patient is currently on Zepbound, plan is to increase to max of 15 mg weekly Assessment & Plan (03/02/2024 4:30 PM EDT): [...] 12/07/2015 Migraine without aura, not refractory 12/07/2015 Assessment & Plan (05/26/2025 1:08 PM EDT): I advise to avoid migraine triggers like red wine, chocolate, cheese, strong perfumes Iron deficiency anemia 12/07/2015 Impaired glucose tolerance [...] Encounters Date Type Department Care Team Description 06/15/2025 Patient Outreach [facility] [address] [place] [phone] Teena Castillo MD Care Coordination (SDOH f/u) 06/15/2025 Patient Outreach [facility] [address] [place] [address] Teena Castillo MD Care Management (C3CM- f/u call) 06/06/2025 Refill [facility] [address] [place] [phone] Teena Castillo MD Class 1 obesity due to excess calories with serious comorbidity and body mass index (BMI) of 34.0 to 34.9 in adult 06/02/2025 Patient Outreach [address] [address] Teena Castillo MD Care Management (C3CM- f/u call) 05/27/2025 10:00 AM EDT Office Visit [address] [address] Sean Lyles MD Melasma 05/27/2025 Travel 05/26/2025 11:00 AM EDT Office Visit [address] [address] Teena Castillo MD Dysuria (Primary Dx); Chronic midline low back pain, unspecified whether sciatica present; Migraine without aura, not refractory; Chronic right shoulder pain; Positive TERRENCE (antinuclear antibody); Arthritis; Class 1 obesity; TERESO (obstructive sleep apnea) 05/26/2025 Orders Only GENERIC EXTERNAL DATA DEPARTMENT Provider, Generic External Data 05/26/2025 Travel 05/25/[address] [address] Teena Castillo MD chart prep 05/23/2025 Patient Outreach [address] [address] Teena Castillo MD Care Coordination (SDOH f/u) 05/23/2025 Patient Outreach [address] [address] Teena Castillo MD Care Management (C3CM- f/u call lvm) 05/18/2025 Refill [facility] [address] [place] [phone] Teena Castillo MD Primary hypertension; Vitamin deficiency 05/16/2025 9:30 AM EDT Office Visit [facility] [address] [place] [address] Russ Perdue DDS Dental caries (Primary Dx) 05/16/2025 Patient Outreach [address] [address] Teena Castillo MD 05/15/[address] [address] Melly Neff DO Class 1 obesity due to excess calories with serious comorbidity and body mass index (BMI) of 34.0 to 34.9 in adult 05/15/2025 Orders Only GENERIC EXTERNAL DATA DEPARTMENT Provider, Generic External Data 05/05/2025 Patient Outreach [address] [address] Teena Castillo MD Care Management (C3- f/u call) 05/03/2025 Patient Outreach [address] [address] Teena Castillo MD Care Coordination (SDOH f/u) 05/01/2025 Refill [facility] [address] [place] [phone] Teena Castillo MD Vitamin deficiency 04/29/2025 8:30 AM EDT Office Visit [facility] [address] [place] [address] Alison Oneal DDS 04/22/2025 9:00 AM EDT Office Visit [facility] [address] [place] [address] Alison Oneal DDS 04/22/2025 Plan of Care Documentation [facility] [address] [place] [phone] 04/22/2025 Patient Outreach [address] [address] Teena Castillo MD Care Coordination (SDOH) 04/22/2025 Patient Outreach [address] [address] Teena Castillo MD Care Management (C3CM- initial assessment/ enrollment) 04/22/2025 Telephone [facility] [address] [place] [address] Teena Castillo MD Error (VOID this visit) 04/21/2025 Patient Outreach [facility] [address] [place] [phone] Teena Castillo MD Care Coordination (SDOH) 04/19/2025 Telephone [facility] [address], [place] [phone] Luis Angel Worthington, DDS 04/18/2025 Patient Outreach [facility] [address] [place] [address] Teena Castillo MD Care Management (C3- initial assessment/ enrollment. lvm) 04/18/2025 Refill [facility] [address] [place] [address] Melly Neff DO Class 1 obesity due to excess calories with serious comorbidity and body mass index (BMI) of 34.0 to 34.9 in adult 04/13/2025 Patient Outreach [facility] [address] [place] [address] Teena Castillo MD Care Coordination (CM/CHW outreach) 04/07/2025 Refill [facility] [address], [place] [phone] Teena Castillo MD Melasma from Last 3 Months Immunizations Immunization Administration [...] Answer Date Recorded Internet Access Q1 Yes 06/21/2025 Internet Access Q2 Not on file 06/21/2025 Comments No Sex and Gender Information Value Date Recorded Sex Assigned at Female 07/29/2022 10:21 AM EDT Legal Sex Female 10:21 AM EDT Gender Identity Choose not to disclose 10:21 AM EDT Sexual Orientation Choose not to disclose 2021 10:21 AM EDT Last Filed Vital Signs Vital Sign Reading Time Taken Comments Blood Pressure 120/86 05/27/2025 9:41 AM EDT Pulse 96 05/27/2025 9:41 AM EDT Temperature 36.1 C (96.9 F) 05/27/2025 9:41 AM EDT Respiratory Rate 20 05/27/2025 9:41 AM EDT Oxygen Saturation 97% 05/27/2025 9:41 AM EDT Inhaled Oxygen Concentration - - Weight 85 kg (187 lb 6.4 oz) 05/27/2025 9:41 AM EDT Height 160 cm (5' 3 ) 05/27/2025 9:41 AM EDT Body Mass Index 33.2 05/27/2025 9:41 AM EDT Plan of Treatment Health Maintenance Due Date Last Done Comments HIV Screening 1980 Family Planning (PISQ) 1996 HPV Vaccines (1 - 3-dose series) 1996 Hepatitis B Vaccines (1 of 3 - 19+ 3-dose series) 2000 DTaP/Tdap/Td Vaccines (2 - Td or Tdap) 08/14/2021 08/14/2011 COVID-19 Vaccine (3 - season) 2025 04/12/2021, 03/22/2021 Influenza Vaccine (#1) 2025 9, [...] Procedure Name Priority Date/Time Associated Diagnosis Comments BASIC METABOLIC PANEL Routine 05/26/2025 11:30 AM EDT XR LUMBAR SPINE 2-3 VIEWS Routine 05/26/2025 11:14 AM EDT Chronic midline low back pain, unspecified whether sciatica present NO CHARGE VISIT Routine 05/16/2025 9:30 AM [...] PANEL Routine 04/06/2025 8:26 AM EDT Hypokalemia PROPHYLAXIS - ADULT Routine 03/07/2025 9 :00 AM EDT INTRAORAL - COMPLETE SERIES OF RADIOGRAPHIC IMAGES Routine 03/02/2025 9:00 AM EDT COMPREHENSIVE ORAL EVALUATION - NEW OR ESTABLISHED PATIENT Routine 03/02/2025 9:00 AM EDT LIPID PANEL, STANDARD Routine [...] Recently Relevant to Health Maintenance Results * Basic Metabolic Panel (05/26/2025 11:30 AM EDT) Only the most recent of2 resultswithin the time period is included. Sodium 140 135 - 145 mmol/L [facility] Potassium 3.5 3.3 - 5.1 mmol/L [facility] Chloride 106 96 - 108 mmol/L [facility] Carbon Dioxide 25 22 - 29 mmol/L [facility] Anion Gap 13 12 - 20 [facility] Urea Nitrogen (BUN) 9 9 - 16 mg/dL [facility] Creatinine, Serum 0.84 0.5 - 1.4 mg/dL [facility] Estimated Glomerular Filt Rate >60 [facility] Comment:Chronic Kidney Disea se: Estimated GFR < 60 mL/min/1.06g6Raiztu Kidney Disease: Estimated GFR < 15 mL/min/1.73m2 Glucose 83 60 - 115 mg/dL [facility] Calcium 9.2 8.4 - 10.2 mg/dL [facility] 05/26/2025 11:3 0 AM EDT 05/26/2025 1:12 PM EDT us Generic External Data Provider LAB BLOOD ORDERAB LES Final Result [facility] [address] [place] [phone] * XR Lumbar Spine 2-3 Views (05/26/2025 11:14 AM EDT) Anatomical Region Laterality Modality Spine, L-spine Radiographic Anyi ging 05/26/2025 11:1 4 AM EDT Narrative 05/26/2025 12:46 PM EDT [address] [address] XRay Report Signed Patient: Dara Garcia MR#: [id number] 46 : 1980 Acct:[id number] Age/Sex: 45 / F ADM Date: 05/26/25 Loc: HO.HHCL Attending Dr: Augustine Ag CAN TOP SETTER Ordering Physician: Teena Castillo MD Date of Service: 05/26/25 Procedure(s): XR lumbar spine 2-3V Accession Number(s): [id number] cc: Teena Castillo MD EXAMINATION: XR LUMBOSACRAL SPINE CLINICAL INFORMATION: pain COMPARISON: 12/13/2021 TECHNIQUE: Three views of the lumbosacral spine. FINDINGS: There is a minimal right convex scoliosis. There is a normal lordosis. There is no subluxation. There is no fracture, compression deformity, or suspicious bone lesion. Disc spaces appear largely preserved. Facets are normally aligned without significant facet arthrosis. There are no pars defects. The SI joints appear grossly normal. The sacrum is intact. Surgical clips are present in the epigastric region. Soft tissues otherwise normal. XR/XR lumbar spine 2-3V IMPRESSION: No acute findings of the lumbar spine. Electronically signed by: Ray Tamez MD 05/26/2025 12:43 PM EDT Dictated By: Ray Tamez MD Signed By: <Electronically signed by Ray Tamez MD in OV> 05/26/25 1243 DD/ 1114 TD/TT: 05/26/25 1120 Manager Contracting: Procedure Note Donotuseinterpreter, Image - 05/26/[address] [address] XRay Report Signed Patient: Chuck GarciaR#: [id number] 46 : 1980Acct:[id number] Age/Sex: 45 / FADM Date: 05/26/25 Loc: HO.CL Attending Dr: Augustine Ag CAN TOP SETTER Ordering Physician: Teena Castillo MD Date of Service: 05/26/25 Procedure(s): XR lumbar spine 2-3V Accession Number(s): [id number] cc: Teena Castillo MD EXAMINATION: XR LUMBOSACRAL SPINE CLINICAL INFORMATION: pain COMPARISON: 12/13/2021 TECHNIQUE: Three views of the lumbosacral spine. FINDINGS: There is a minimal right convex scoliosis. There is a normal lordosis. There is no subluxation. There is no fracture, compression deformity, or suspicious bone lesion. Disc spaces appear largely preserved. Facets are normally aligned without significant facet arthrosis. There are no pars defects. The SI joints appear grossly normal. The sacrum is intact. Surgical clips are present in the epigastric region. Soft tissues otherwise normal. XR/XR lumbar spine 2-3V IMPRESSION: No acute findings of the lumbar spine. Electronically signed by: Ray Tamez MD 05/26/2025 12:43 PM EDT RP Dictated By: Ray Tamez MD Signed By: <Electronically signed by Ray Tamez MD in OV> 05/26/25 1243 DD/ 1114 TD/TT: 05/26/25 1120 Manager Contracting: us Teena Otoole MD IMG XR PROCEDURES Fin al Result * High Sensitivity Troponin I (05/15/2025 2:49 PM EDT) Only the most recent of2 resultswithin the time period is included. TROPONIN I HIGH SENSITIVITY <2.7 <3.5 - 17.0 ng/L [facility] Comment:The [place] high sens itivity Troponin-I results should beused in conjunction with other diagnostic information suchas ECG, clinical observations and information, and patientsymptoms to aid in the diagnosis of [place]. 05/15/2025 2:49 PM EDT 05/15/2025 2:52 PM EDT us Generic External Data Provider LAB BLOOD ORDERAB LES Final Result [facility] [address] [place] [phone] * (ABNORMAL) Urinalysis, Complete, with Reflex to Culture (05/15/2025 2:49 PM EDT) Color Urine Yellow [facility] Appearance Urine Clear [facility] PH 5.5 5.0 - 9.0 [facility] Glucose Urine UA >=1000(A) Negative mg/dL [facility] Urine Blood Negative Negative [facility] Specific [place] - Urine >=1.030(H) 1.005 - 1.025 [facility] Urine Protein Negative Neg-Trace mg/dL [facility] Urine Ketones Trace Negative mg/dL [facility] Nitrite Urine Positive(A) Negative [facility] Leukocyte Esterase Urine Negative Negative [facility] RBC Urine 0-2 0 - 2 /HPF [facility] Urine WBC 0-5 0 - 5 /HPF [facility] Urine Squamous Epithelial Cell 3-5 0 - 2 /HPF [facility] Urine Bacteria 4+ None Seen [facility] Hyaline Casts, Urine 0-2 0 - 2 /LPF [facility] 05/15/2025 2:49 PM EDT 05/15/2025 2:52 PM EDT Narrative [facility] - 05/15/2025 3:10 PM EDT [id number], Clean Catch us Generic External Data Provider LAB URINE ORDERAB LES Final Result [facility] [address] [place] [phone] * XR Chest 1 View (05/15/2025 11:18 AM EDT) Anatomical Region Laterality Modality Chest Radiographic Anyi ging 05/15/2025 11:1 8 AM EDT Narrative 05/15/2025 11:19 AM EDT [address] [address] XRay Report Signed Patient: Dara Garcia MR#: [id number] 46 : 1980 Acct:[id number] Age/Sex: 44 / F ADM Date: 05/15/25 Loc: HO.ED Attending Dr: Ordering Physician: Generic ED Physician Date of Service: 05/15/25 Procedure(s): XR chest 1V Accession Number(s): [id number] cc: Teena Castillo MD; Generic ED Physician [...] 05/15/25 1119 DD/ 1118 TD/TT: 05/15/25 1118 Manager Contracting: Procedure Note Donotuseinterpreter, Image - 05/15/2025 [place] [address] XRay Report Signed Patient: Angi Garcia#: [id number] 46 : 1980Acct:[id number] Age/Sex: 44 / FADM Date: 05/15/25 Loc: HO.ED Attending Dr: Ordering Physician: Generic ED Physician Date of Service: 05/15/25 Procedure(s): XR chest 1V Accession Number(s): [id number] cc: Teena Castillo MD; Generic ED Physician [...] 05/15/25 1119 DD/ 1118 TD/TT: 05/15/25 1118 Manager Contracting: [facility] External Provider IMG XR PROCEDURES Edited Result - Final * D Dimer High Sensitivity (05/15/2025 9:04 AM EDT) D Dimer High Sensitivity <150 NG/ML [facility] Comment:D-DIMER HS REFERENCE RANGENote: Our assay [...] Provider LAB BLOOD ORDERAB LES Final Result [facility] [address] [place] [phone] * SARS-CoV-2 RNA, Influenza A/B, and RSV RNA, Ql NAAT (05/15/2025 9:04 AM EDT) Influenza A PCR NEGATIVE Negative [facility] Influenza B PCR NEGATIVE Negative [facility] Resp Syncy Virus RNA Qual PCR NEGATIVE Negative [facility] SARS COV2 PCR NEGATIVE Negative [facility] Comment:All test results mus t [...] use by authorized laboratories.Testing performed on the Lumicity GeneXpert utilizingreal-time RT-PCR.All SARS CoV2 and positive influenza A/B results arereported to [facility]. 05/15/2025 9:04 AM EDT 05/15/2025 9:08 AM EDT us Generic External Data Provider LAB MICROBIOLOGY - GENERAL ORDERABLES Final Result [facility] [address] [place] [phone] * (ABNORMAL) CBC auto differential (05/15/2025 9:04 AM EDT) Only the most recent of2 resultswithin the time period is included. White Blood Count 6.5 4.8 - 10.8 X10*3/uL [facility] Red Blood Count 5.19 4.20 - 5.50 X10*6/uL [facility] Hemoglobin 13.9 12.0 - 16.0 g/dl [facility] Hematocrit 41.8 37.0 - 47.0 % [facility] Mean Corpuscular Volume 80.5 80.0 - 98.0 fL [facility] Mean Corpuscular Hemoglobin 26.8(L) 27.0 - 33.0 pg [facility] Mean Corpuscular HGB Conc 33.3 31.0 - 35.0 g/dl [facility] Red Cell Distribution Width 13.6 11.0 - 16.0 % [facility] Platelet Count 259 160 - 400 X10*3/uL [facility] Mean Platelet Volume 9.4 9.4 - 12.3 fL [facility] Neutrophils Percent Auto 69.7 45 - 73 % [facility] Imm Gran Pct Auto 0.3 0.0 - 0.4 % [facility] Lymphocytes Percent Auto 19.0(L) 20 - 40 % [facility] Monocytes Percent Auto 9.0 2 - 11 % [facility] Eosinophils Percent Auto 1.2 0 - 4 % [facility] Basophils Percent Auto 0.8 0 - 2 % [facility] NRBC Pct Auto 0.0 0.0 - 0.2 /100WBC [facility] Neutrophils Absolute Auto 4.5 2.0 - 8.3 x10*3/uL [facility] Imm Gran Abs Auto 0.02 0.00 - 0.03 X10*3/uL [facility] Lymphocytes Absolute Auto 1.2 1.2 - 4.9 X10*3/uL [facility] Monocytes Absolute Auto 0.6 0.1 - 1.2 X10*3/uL [facility] Eosinophils Absolute Auto 0.1 0.0 - 0.4 X10*3/uL [facility] Basophils Absolute Auto 0.1 0.0 - 0.2 X10*3/uL [facility] NRBC Abs Auto 0.000 0.0 - 0.012 X10*3/uL [facility] 05/15/2025 9:04 AM EDT 05/15/2025 9:08 AM EDT us Generic External Data Provider LAB BLOOD ORDERAB LES Final Result [facility] [address] [place] [phone] * Prothrombin Time-INR (05/15/2025 9:04 AM EDT) Prothrombin Time 11.6 10.9 - 12.4 SEC [facility] INTERNATIONAL NORM RATIO 1.0 0.9 - 1.1 [facility] Comment:INTERNATIONAL NORMAL IZED RATIO (INR) [...] ORDERAB LES Final Result Performing Organization Address City/[facility]/ZIP Co de Phone Number [facility] [address] [place] [phone] * Magnesium (05/15/2025 9:04 AM EDT) Magnesium 2.3 1.6 - 2.6 mg/dL [facility] 05/15/2025 9:04 AM EDT 05/15/2025 9:08 AM EDT Generic External Data Provider LAB BLOOD ORDERAB LES Final Result Performing Organization Address [facility] de Phone Number [facility] [address] [place] [phone] * (ABNORMAL) Comprehensive Metabolic Panel (05/15/2025 9:04 AM EDT) Sodium 143 135 - 145 mmol/L [facility] Potassium 3.3 3.3 - 5.1 mmol/L [facility] Chloride 109(H) 96 - 108 mmol/L [facility] Carbon Dioxide 24 22 - 29 mmol/L [facility] Anion Gap 13 12 - 20 [facility] Urea Nitrogen (BUN) 10 9 - 16 mg/dL [facility] Creatinine, Serum 0.96 0.5 - 1.4 mg/dL [facility] Creatinine Clr Calc Pharmacy 81.1 [facility] Comment:Provided height and weight: 165.1 cm,84.5 kg.eGFR (calculated from the MDRD study equation) and eCrCl(calculated from the Cockcroft-Gault equation) are based ondifferent parameters and may not yield comparable results.If eCrCl result is absurd, please check patient'sheight/weight. Estimated Glomerular Filt Rate >60 [facility] Comment:Chronic Kidney Disea se: Estimated GFR < 60 mL/min/1.12i4Hpmuyz Kidney Disease: Estimated GFR < 15 mL/min/1.73m2 Glucose 77 60 - 115 mg/dL [facility] Calcium 9.1 8.4 - 10.2 mg/dL [facility] Bilirubin, Total 0.4 0.0 - 1.0 mg/dL [facility] Aspartate Amino Transferase 20 5 - 31 U/L [facility] Alanine Aminotransferase 17 0 - 31 U/L [facility] Total Protein 7.2 6.5 - 8.0 g/dL [facility] Albumin Level 3.9 3.5 - 5.0 g/dL [facility] Alkaline Phosphatase 88 39 - 117 U/L [facility] 05/15/2025 9:04 AM EDT 05/15/2025 9:08 AM EDT Generic External Data Provider LAB BLOOD ORDERAB LES Final Result Performing Organization Address [facility] de Phone Number [facility] [address] [place] [phone] * Culture, Urine, Routine (05/15/2025 12:00 AM EDT) Urine Urine specimen obtained by clean catch procedure / Unknown 05/15/2025 05/15/2025 Comment:[facility] Narrative [facility] - 05/17/2025 7:34 AM EDT Escherichia coli Quant > 100,000 cfu/mL Escherichia coli: Ampicillin 4(S) Escherichia coli: Cefazolin (Urine) <=1(S) Escherichia coli: Cefepime <=0.12(S) Escherichia coli: Ceftriaxone <=0.25(S) Escherichia coli: Ciprofloxacin <=0.06(S) Escherichia coli: Gentamicin <=1(S) Escherichia coli: Nitrofurantoin 32(S) Escherichia coli: Trimethoprim/Sulfamethoxazole <=20(S) Specimen Source: Urine clean catch Generic External Data Provider LAB MICROBIOLOGY - GENERAL ORDERABLES Final Result Performing Organization Address [facility] Co de Phone Number [facility] [address] [place] [phone] * (ABNORMAL) Vitamin B12 (Cobalamin) and Folate Panel, Serum (04/06/2025 8:26 AM EDT) Vitamin B12 941(H) 200 - 900 pg/mL [facility] Comment:NORMAL 200-900 PG/ML INDETERMINATE 160-199 PG/ML DEFICIENT < 160 PG/ML Folate 13.9 > or = 4.0 ng/mL [facility] Comment:Reference Values:> o r = [...] BLOOD ORDERABLES Final Result Performing Organization Address [facility] Co de Phone Number [facility] [address] [place] [phone] * (ABNORMAL) Iron And Total Iron Binding Capacity (04/06/2025 8:26 AM EDT) Pathologist [facility] Iron 65 30 - 160 mcg/dL [facility] Total Iron Binding Capacity 212(L) 228 - 428 mcg/dL [facility] Percent Iron Saturation 31 15 - 50 % [facility] Unsaturated Iron Binding 147 ug/dL [facility] Blood Venous blood specimen / Unknown 04/06/2025 8:26 AM EDT 04/06/2025 8:26 AM EDT us Teena Otoole MD LAB BLOOD ORDERABLES Final Result Performing Organization Address City/[facility]/ZIP Co de Phone Number [facility] [address] [place] [phone] * Ferritin (04/06/2025 8:26 AM EDT) Ferritin 104 10 - 250 ng/mL [facility] Blood Venous blood specimen / Unknown 04/06/2025 8:26 AM EDT 04/06/2025 8:26 AM EDT Teena Otoole MD LAB BLOOD ORDERABLES Final Result Performing Organization Address [facility] Co de Phone Number [facility] [address] [place] [phone] * Lipid Panel, Standard (12/22/2024 8:37 AM EDT) Triglycerides 61 <150 mg/dL [facility] Comment:Desirable Triglyceri de: less than 150 mg/dLBorderline High Triglyceride 150-199 mg/dLHigh Triglyceride: 200-499 mg/dLVery High Triglyceride: greater than or equal to 5OO mg/dL Cholesterol 155 <200 mg/dL [facility] Comment:Desirable Cholestero l: less than 200 mg/dLBorderline High Cholesterol: 200-239 mg/dLHigh Cholesterol: greater than 239 mg/dL LDL Cholesterol Calculated 89 <100 mg/dL [facility] Comment:Desirable LDL: less than 100 mg/dLNear Optimal/Above Optimal LDL: 110- 129 mg/dLBorderline High LDL: 130-159 mg/dLHigh LDL: 160-189 mg/dLVery High LDL: greater than or equal to 190 mg/dL HDL Cholesterol 54 >40 mg/dL [facility] Comment:Desirable HDL: great er than 40 mg/dL Note: This HDL assay may give artificially low results in patients with liver disease. Blood Venous blood specimen / Unknown 12/22/2024 8:37 AM EDT 12/22/2024 11:05 AM EDT us Teena Otoole MD LAB BLOOD ORDERABLES Final Result Performing Organization Address [facility]/ZIP Co de Phone Number [facility] [address] [place] [phone] * BI Mammogram Screening Tomosynthesis Bilateral (09/01/2024 11:55 AM EST) Anatomical Region Laterality Modality Breast Bilateral Mammography 09/01/2024 11:5 5 AM EST Narrative 09/07/2024 3:10 PM EST [facility] [address] [place] [address] Mammography Report Signed Patient: Dara Garcia MR#: [id number] 47 : 1980 Acct:[id number] Age/Sex: 44 / F ADM Date: 09/01/24 Loc: HO.MAMMO Attending Dr: Teena Otoole MD Ordering Physician: Teena Castillo MD Results: 1Negative Date of Service: 09/01/24 Follow Up: 1 Year From Orig inal Mammogram Procedure(s): MM tomosynthesis screening BI Accession Number(s): [id number] cc: Teena Castillo MD EXAMINATION: MM SCREENING [...] 09/07/24 1507 DD/ 1155 TD/TT: 09/01/24 1205 Manager Contracting: Procedure Note Donotuseinterpreter, Image - 09/07/2024 [place] [facility] [address] [place] [address] Mammography Report Signed Patient: Angi Garcia#: [id number] 47 : 1980Acct:[id number] Age/Sex: 44 / FADM Date: 09/01/24 Loc: HO.MAMMO Attending Dr: Teena Otoole MD Ordering Physician: Teena Castillo MDResults: 1Negative Date of Service: 09/01/24Follow Up: 1 Year From Orig inal Mammogram Procedure(s): MM tomosynthesis screening BI Accession Number(s): [id number] cc: Teena Castillo MD EXAMINATION: MM SCREENING [...] by: Liudmila Erickson DO 09/07/2024 03:07 PM [facility] Dictated By: Liudmila Erickson DO Signed By: <Electronically signed by Liudmila Erickson DO in OV> 09/07/24 1507 DD/ 1155 TD/TT: 09/01/24 1205 Manager Contracting: us Teena Otoole MD IMG BI PROCEDURES Fin al Result * Hepatitis C Antibody with Reflex to HCV, RNA, Quantitative, Real-Time PCR (02/11/2024 6:14 AM EDT) Hepatitis C Antibody Nonreactive Nonreactive [facility] Comment:Antibodies to HCV no t detected; does not exclude early acuteHCV infection. Blood Venous blood specimen / Unknown 02/11/2024 6:14 AM EDT 02/11/2024 6:14 AM EDT Teena Otoole MD LAB BLOOD ORDERABLES Final Result [facility] [address] [place] [phone] * HPV mRNA E6/E7 w/Reflex to HPV Genotypes 16, 18/45 (05/01/2023 12:00 AM EDT) Pathologist [facility] HPV nRNA E6/E7 Not Detected Not Detected [facility] Comment:Methodology: Transcr iption-Mediated AmplificationThis assay detects E6/E7 viral messenger RNA (mRNA) from 14high-risk HPV types (16,18,31,33,35,39,45,51,52,56,58,59,66,68).Cervical sources are required for HPV testing.If a vaginal source from a patient who has had atotal hysterectomy with removal of cervix wassubmitted, please contact the testing laboratoryfor alternative testing options.For additional information, please refer [email or web address]/[email or web address](This link if provided for information/educational purposes only.)THIS TEST WAS PERFORMED AT:[employer] [place] [phone] JUÁREZ MD HPV mRNA E6/E7 [facility] HPV 16 RNA [facility] HPV 18/45 RNA [facility] 05/01/2023 05/02/2023 10: 15 AM EDT us Rachel Gaytan CNM LAB CYTOLOGY ORDERABLES F inal Result [facility] [address] [place] [phone] * Pap Smear (05/01/2023 12:00 AM EDT) 05/01/2023 05/02/2023 10: 15 AM EDT Narrative [facility] - 05/24/2023 4:11 PM EDT ----- ------- Name: Dara Garcia Age/Sex: 42/F : 1980 Unit#: [id number] Attend Dr: RACHEL GAYTAN CNM Re05/01/23 Status: [facility] ----- ------- SPEC : [id number] RECD: 05/02/23-1015 STATUS: BRIDGET GARZA NUM: [id number] SUDARSHAN: 05/01/23-[address]: RACHEL GAYTAN CNM ENTERED: 05/05/23-1323 SP TYPE: Pap Smr OT DR: ORDERED: Pap Smear Interpretation Satisfactory for evaluation. Negative for intraepithelial lesion or malignancy. HPV mRNA E6/E7: NOT DETECTED This assay detects E6/E7 viral messenger RNA (mRNA) from 14 high-risk HPV types (16, 18, 31, 33, 35, 39, 45, 51, 52, 56, 58, 59, 66, 68) HPV testing performed by [employer], [place], [place]. See reference laboratory portion of the EMR for entire report. Clinical Information LMP:Unknown date Previous PAP test:Unknown date/findings Material Received ThinPrep-Cervical ----- ------- Signed (signature on file) Meseret Raygoza 05/24/23 1611 ----- ------- END OF REPORT Rachel Gaytan [facility] CYTOLOGY ORDERABLES F inal Result [facility] [address] [place] [phone] from Last 3 Months or Most Recently Relevant to Health Maintenance [facility] [place] AD[place] Care Teams Cloth Measurer Relationship Specialty Start Date End Date Teena Castillo MD [address] [place] [phone] PCP - General Family Medicine 03/18/19
--- OUTSIDE RECORDS SUMMARY | 2025-06-22 07:58 | XMS_ITS | Encounter Summary ---
Author Organization [employer] Address [address] [place] [address] Care Team Providers Care Material Processor Name Role Phone Teena Castillo MD Primary Care Provide r Reason for Visit * Reason Onset Date Comments Med Refill 05/15/2025 Encounter Details Date Type Department Care Team ([facility] st Contact Info) Description 05/15/2025 Refill [facility] [address] [place] [address] Melly Neff, [address] [place] [address] Class 1 obesity due to excess calories [...] documented as of this encounter Care Teams Material Processor Relationship Specialty Start Date End Date Teena Castillo MD [address] [place] [address] PCP - General Family Medicine 03/18/19 documented as of this encounter
--- OUTSIDE RECORDS SUMMARY | 2025-06-22 07:58 | XMS_ITS | Clinical Summary ---
Author Organization [facility] ity Address [address] [place] [address] Care Team Providers Care Practical Nurse Clinical Coordinator Name Role Phone Teena Castillo MD [...] 09/01/2022 Social Influencers of Health Screening 09/01/2022 Depression Screening 09/29/2024 COVID-19 Vaccine ( - 2023-2 5 season) 2025 Influenza Vaccine (#1) 2025 HIB Vaccines Aged [...] age to complete this topic Care Teams Practical Nurse Clinical Coordinator Relationship Specialty Start Date End Date Teena Castillo MD [address] [place] [phone] PCP - General Internal Medicine 12/31/21
--- OUTSIDE RECORDS SUMMARY | 2025-06-22 07:58 | XMS_ITS | Encounter Summary ---
Author Organization [employer] Address [address] [place] [address] Care Team Providers Care Hide Buyer Name Role Phone Teena Castillo MD Primary Care Provide r Reason for Visit * Reason Comments Med Refill Encounter Details Date Type Department Care Team ([facility] st Contact Info) Description 02/17/[address] [facility] [address] [place], [place] [phone] Teena Castillo MD [address] [place], [place] [phone] Class 2 severe obesity due to excess [...] documented as of this encounter Care Teams Hide Buyer Relationship Specialty Start Date End Date Teena Castillo MD [address] [place] [phone] PCP - General Family Medicine 03/18/19 documented as of this encounter
--- OUTSIDE RECORDS SUMMARY | 2025-06-22 07:58 | XMS_ITS | Encounter Summary ---
Author Organization [employer] Address [address] [place] [address] Care Team Providers Care Line Camera Operator Name Role Phone Teena Castillo MD Primary Care Provide r Encounter Details Date Type Department Care Team (Late st Contact Info) Description 02/06/2023 Orders Only [facility] CH[facility] MED & PEDS [address] [place] [address] Melly Mccloud LPN Social History Tobacco Use [...] on filedocumented in this encounter Care Teams Line Camera Operator Relationship Specialty Start Date End Date Teena Castillo MD [address] [place] [phone] PCP - General Family Medicine 03/18/19 documented as of this encounter
--- OUTSIDE RECORDS SUMMARY | 2025-06-22 07:58 | XMS_ITS | Encounter Summary ---
Author Organization [employer] Address [address] [place] [address] Care Team Providers Care Machine I Coremaker Name Role Phone Teena Castillo MD Primary Care Provide r Reason for Visit * Reason Comments Med Refill Encounter Details Date Type Department Care Team ([facility] Contact Info) Description 09/28/2024 Refill [facility] MED[facility]INE [address] [place], [place] [phone] Teena Castillo MD [address] [place] [address] Class 2 severe obesity due to excess [...] documented as of this encounter Care Teams Machine I Coremaker Relationship Specialty Start Date End Date Teena Castillo MD [address] [place] [phone] PCP - General Family Medicine 03/18/19 documented as of this encounter
--- OUTSIDE RECORDS SUMMARY | 2025-06-22 07:58 | XMS_ITS | Encounter Summary ---
Author Organization [employer] Address [address] [place] [address] Care Team Providers Care Concrete Paver Name Role Phone Teena Castillo MD Primary Care Provide r Reason for Visit * Reason Comments Med Refill Encounter Details Date Type Department Care Team ([facility] Contact Info) Description 08/11/2023 Refill [facility] CHC MED & PEDS [address] [place], [place] [phone] Nahid Mak MD [address] [place] [address] Essential hypertension Social History Tobacco Use Types [...] documented as of this encounter Care Teams Concrete Paver Relationship Specialty Start Date End Date Teean Castillo MD [address] [place] [phone] PCP - General Family Medicine 03/18/19 documented as of this encounter
[2025-06-22 08:01] LABS: Hematocrit 42.6 % (37.0-47.0); Hemoglobin 14.2 g/dl (12.0-16.0); Imm Gran Abs Auto 0.06 X10*3/uL (0.00-0.03); Imm Gran Pct Auto 0.7 % (0.0-0.4); Lymphocytes Absolute Auto 1.0 X10*3/uL (1.2-4.9); Mean Corpuscular HGB Conc 33.3 g/dl (31.0-35.0); Mean Corpuscular Hemoglobin 26.9 pg (27.0-33.0); Mean Corpuscular Volume 80.7 fL (80.0-98.0); NRBC Abs Auto 0.000 X10*3/uL (0.0-0.012); NRBC Pct Auto 0.0 /100WBC (0.0-0.2); Platelet Count 256 X10*3/uL (160-400); Red Blood Count 5.28 X10*6/uL (4.20-5.50); White Blood Count 8.9 X10*3/uL (4.8-10.8)
[2025-06-22 08:08] LABS: Appearance Urine Cloudy; Glucose Urine UA >=1000 mg/dL (Negative); PH 6.0 (5.0-9.0); Specific Gravity - Urine >= 1.030 (1.005-1.025); UACC Culture Trigger YES; UMIC TRIGGER UACC YES
[2025-06-22 08:10] LABS: Alanine Aminotransferase 20 U/L (0-31); Albumin Level 3.9 g/dL (3.5-5.0); Alkaline Phosphatase 89 U/L (39-117); Anion Gap 12 (12-20); Aspartate Amino Transferase 29 U/L (5-31); Blood Urea Nitrogen 11 mg/dL (9-16); Calcium 9.1 mg/dL (8.4-10.2); Carbon Dioxide 22 mmol/L (22-29); Chloride 111 mmol/L (96-108); Creatinine Clr Calc Pharmacy 79.1; Estimated Glomerular Filt Rate > 60; Potassium 3.8 mmol/L (3.3-5.1); Sodium 141 mmol/L (135-145); Total Protein 7.5 g/dL (6.5-8.0)
--- NOTE | 2025-06-22 08:29 | PC.NURSE ---
chaperoned the provider during a pelvic exam, pt tolerated the procedure well
[2025-06-22] MEDS: iohexoL 350 MG/ML 100 ML INFUS..BTL 85 ML IV (09:04)
[2025-06-22 09:52] LABS: Bacterial Vaginosis PCR NEGATIVE (Negative); Candida Group PCR NOT DETECTED (Not Detect); Candida glab krusei PCR NOT DETECTED (Not Detect); Trichomonas vaginalis PCR NOT DETECTED (Not Detect)
[2025-06-22 10:21] LABS: CT PCR NOT DETECTED (Not Detect.); NG PCR NOT DETECTED (Not Detect.)
[2025-06-22 10:57] VITALS: BP 127/85; PULSE 78; RESP 18; TEMP -17.7; TEMP 0; O2SAT 99
== END 2025-06-22 11:04 | disposition home or self-care (01) ==
PROVIDERS: Physician Assistant Medical; Emergency Provider Emergency Medicine; PCP Internal Medicine
DX: M54.50 Low back pain, unspecified (principal); K59.00 Constipation, unspecified; R10.2 Pelvic and perineal pain; N92.0 Excessive and frequent menstruation with regular cycle; R30.0 Dysuria; R53.1 Weakness; Z79.899 Other long term (current) drug therapy
CPT/HCPCS: 36415; 74177; 80053; 81001; 81515; 85025; 87086; 87088; 87186; 87491; 87591; 96361; 96374; 96375; 99285; J0131; J0696; Q9967

== ENCOUNTER → 2025-06-22 08:54 | Outpatient (BNV) | payer MEDICAID, SELFPAY | PROVIDERS: Emergency Provider Emergency Medicine; PCP Internal Medicine; Visit Provider Radiology Diagnostic Radiology | DX: N83.202 Unspecified ovarian cyst, left side (principal); M54.50 Low back pain, unspecified | CPT/HCPCS: 74177 ==

== ENCOUNTER 2025-08-02 13:40 | Outpatient (AMB) | payer MEDICAID, SELFPAY ==
--- NOTE | 2025-08-02 13:54 | MHC.OFFVIS ---
Vital Signs 08/02/25 13:55 Height 5 ft 3 in Weight 180 lb BMI 31.9 Intake Visit Reasons: ER Follow up Professor Of Mathematics Required: Yes Professor Of Mathematics Language: Loom Fixer Services: Professor Of Mathematics Present (in person) Professor Of Mathematics Name: Paradise MARQUES Information Interpreted: non-clinical & clinical Telegraph Plant Maintainer: Telegraph Plant Maintainer Present (Paradise MARQUES) Accompanied by: Spouse Allergies No Known Allergies Allergy (Verified 08/02/25 13:58) HPI Comments Details: Presenting for ER follow-up. The patient went to emergency room on 06/22/2025 had the following workup: Positive urine culture growing E coli the patient was treated with Cefpodoxiime GC/CT was negative CT scan showed the following: IMPRESSION: 1. No acute findings in the abdomen or pelvis. 2. Prior gastric sleeve procedure. 3. 2.7 cm simple left appearing ovarian cysts. 4. Ancillary findings as discusse The patient is complaining of persistent urinary frequency and dysuria in addition to vulvovaginal itching and a perineal rash that is tender [facility] Medical History Steatosis, liver BMI 38.0-38.9,adult BMI 39.0-39.9,adult Obesity Vitamin A deficiency H. pylori infection GERD (gastroesophageal reflux disease) Obstructive sleep apnea on CPAP Morbid obesity Excessive daytime sleepiness Anemia Bipolar 1 disorder Depression Arthritis Migraine Fibromyalgia Sleep apnea Vertigo HTN (hypertension) Surgical History S/P cardiac cath S/P laparoscopic sleeve gastrectomy Hx of tubal ligation Hx of section Family History Mother Hypertension Heart problem Arthritis Diabetes Pacemaker Father Vitiligo Sister No problems noted. Sister No problems noted. Sister No problems noted. Sister No problems noted. Sister No problems noted. Brother No problems noted. Brother No problems noted. Son No problems noted. Son No problems noted. Social History Household Members: Spouse and Children Are you a primary clinical manager home care to a significant other at home: No Do you presently have visiting nurse or other home services: No Alcohol intake: current Alcohol intake frequency: does not drink Patient Tobacco Use Status: Never used Tobacco service: No Current occupational status: disabled Physical Exam Vital Signs: BMI result Body Mass Index 31.9 Results AMB Test Urine AMB Test Urine Negative Last Edit by Paradise Jarvis CMA on 08/02/25 14:13 AMB Urinalysis Dipstick UR Leukocytes Negative Last Edit by Paradise Jarvis CMA on 08/02/25 14:13 UR Nitrite Negative Last Edit by Paradise Jarvis, JEWEL CUPPING MACHINE OPERATOR on 08/02/25 14:13 UR Urobilinogen Normal Last Edit by Paradise Jarvis, JEWEL CUPPING MACHINE OPERATOR on 08/02/25 14:13 UR Protein Negative Last Edit by Paradise Jarvis, [facility] on 08/02/25 14:13 UR Ph 6.5 Last Edit by Paradise Jarvis, [facility] on 08/02/25 14:13 UR Blood Trace Last Edit by Paradise Jarvis, [facility] on 08/02/25 14:13 UR Specific [place] 1.015 Last Edit by Paradise Jarvis, JEWEL CUPPING MACHINE OPERATOR on 08/02/25 14:13 UR Ketone Negative Last Edit by Paradise Jarvis CMA on 08/02/25 14:13 UR Bilirubin Negative Last Edit by Paradise Jarvis, JEWEL CUPPING MACHINE OPERATOR on 08/02/25 14:13 UR Glucose Negative Last Edit by Paradise Jarvis [facility] on 08/02/25 14:13 Results Reviewed Results Reviewed: Laboratory Last Values Urine pH (Clinic) 6.5 08/02/25 14:12 Specific [place] (Clinic) 1.015 08/02/25 14:12 Ur Protein (Clinic) Negative 08/02/25 14:12 Ur Ketones (Clinic) Negative 08/02/25 14:12 Urine Blood (Clinic) Trace 08/02/25 14:12 Urine Nitrite Negative 08/02/25 14:12 Urine Bilirubin (Clinic) Negative 08/02/25 14:12 Urobilinogen (Clinic) Normal 08/02/25 14:12 Leukocyte Esterase (Clinic) Negative 08/02/25 14:12 Urine Glucose (Clinic) Negative 08/02/25 14:12 Tst Clinic Negative 08/02/25 14:12 Assessment & Plan Assessment & Plan (1) Microscopic hematuria: Code(s): R31.29 - Other microscopic hematuria Category: Medical Plan: Urine dip showed microscopic hematuria, urine culture sent will treat with Macrobid 100 mg p.o. b.i.d. for 5 days. Instructions given to patient to call if symptoms persist for more than 48 hours, for fever above 100.4, flank pain nausea or vomiting. Will repeat urine dip in 2 weeks if persistent microscopic hematuria will treat accordingly (2) Ovarian cyst: Code(s): N83.209 - Unspecified ovarian cyst, unspecified side Category: Medical Plan: Discussed with the patient the finding on CT scan simple ovarian cyst no indication for further management (3) Vulvar lesion: Comment: Bilateral ulcers Code(s): N90.89 - Other specified noninflammatory disorders of vulva and perineum Category: Medical Plan: Discussed with the patient the finding on pelvic exam, bilateral multiple ulcers, differential diagnosis includes ulcer secondary to scratching, shaving or HSV. HSV cultures taken. Will treat accordingly. Instructions given to patient to schedule a 2 week follow-up appointment for reinspection , all questions answered, the patient verbalized understanding (4) Vulvovaginitis: Code(s): N76.0 - Acute vaginitis Category: Medical Plan: GC/CT, Bacterial Vaginosis panel taken, Terazol 0.8% q.h.s. for 3 days was sent to the patient's pharmacy. The patient was instructed to call if symptoms don't improve in 48 hours. Orders: Orders AMB HCG Urine Test Today N39.0 - Urinary tract infection, site not specified, Z32.02 - Encounter for test, result negative Urine Culture Today R31.29 - Other microscopic hematuria AMB Urinalysis Dipstick Today N39.0 - Urinary tract infection, site not specified, Z32.02 - Encounter for test, result negative CT NG by PCR Vag/Cerv Today R31.29 - Other microscopic hematuria Bacterial Vaginosis Panel Today R31.29 - Other microscopic hematuria Herpes Virus Culture Today R31.29 - Other microscopic hematuria Medications: New terconazole 0.8% 1 appful vaginal BEDTIME 20 grams 0RF 3 days nitrofurantoin monohyd/m-cryst 100 mg (Macrobid) 100 mg PO BID 10 caps 0RF 5 days Coding Level of Care Code Est Pt Level 3 (10640) Diagnoses Microscopic hematuria R31.29 Ovarian cyst N83.209 Vulvar lesion N90.89 Vulvovaginitis N76.0
[2025-08-02 13:55] VITALS: BMI 31.9
--- OUTSIDE RECORDS SUMMARY | 2025-08-02 16:42 | XMS_ITS | Encounter Summary ---
Author Organization [employer] Address [address] [place] [address] Care Team Providers Care Cab Worker Name Role Phone Teena Castillo MD Primary Care Provide r Reason for Visit * Reason Comments Med Refill Encounter Details Date Type Department Care Team ([facility] st Contact Info) Description 07/12/2025 Refill [facility] CHC MED & PEDS [address] [place] [address] Teena Castillo MD [address] [place] [address] Dizziness Social History Tobacco Use Types Packs/Day Years [...] Sex Female 10:21 AM EDT Gender Identity Female 07/11/2025 8:33 AM EDT Sexual Orientation Choose not to disclose 2021 10:21 AM EDT documented as of this encounter Plan of Treatment Upcoming Encounters Date Type Department Care Team (Late st Contact Info) Description 08/03/2025 10:15 AM EST Office Visit [facility] ADULT D[facility]AL [address] [place] [address] Byron Bernal documented as of this encounter Visit Diagnoses Diagnosis Dizziness Dizziness and giddiness documented in this encounter Additional Health Concerns Assessment Noted Time PHQ-9 Depression Total Score: 10 025 11:28 AM EDT documented as of this encounter Care Teams Cab Worker Relationship Specialty Start Date End Date Teena Castillo MD [address] [place] [phone] PCP - General Family Medicine 03/18/19 documented as of this encounter
--- OUTSIDE RECORDS SUMMARY | 2025-08-02 16:42 | XMS_ITS | Encounter Summary ---
Author Organization [employer] Address [address] [facility] 7t [place] [address] Care Team Providers Care Autographer Name Role Phone Teena Castillo MD Primary Care Provide r Reason for Visit * Reason Comments Care Management C3CM- f/u call Encounter Details Date Type Department Care Team ([facility] Contact Info) Description 07/28/2025 Patient Outreach [facility] MEDICINE [address] [place] [address] Teena Castillo MD [address] [place] [address] Care Management (C3CM- f/u call) Social History Tobacco Use Types Packs/Day Years [...] Progress Notes * Anton Cárdenas RN - 07/28/2025 11:27 AM EDT HEIDI Cárdenas RN placed outbound call to patient. Patient's name, and address confirmed. Patient states is doing well with no recent illnesses or emergency room visits. Patient states she wascontacted by [facility] regarding scheduling a f/u with psych. Per patient, was advised that they are placing her on a wait list and that patient will be contacted with an appointment once available. Patient states she is still experiencing difficulty with sleep. She reports taking her prescribed sleep medication but does not feel that the current dose is effective. Patient states that her prior dose was effective but it was adjusted due to concerns with her heart. Patient states she is scheduled to see Cardiology for follow up in July. HEIDI called the office to confirm visit as IGG shows visits scheduled for both 08/16/25 and 08/17/25. Spoke with Christina who cancelled visit on 08/16/25. Patient will be seen on 08/17/25 at 1:15pm. CM informed patient of the scheduled visit. Patient states she has it noted on her calendar and denies any barriers to attending the visit. Patient also states she has not been contacted by Rheumatology with lab results. HEIDI called the office. Informed a message was just sent to their nursing team to outreach patient. Patient provided with an update. She verbalizes understanding and agrees to contact the office directly if she does not hear adrián k from them within 1 week. Patient is aware of her scheduled f/u with Rheumatology on 08/31/25 and denies any barriers to attending. No further questions or concerns. CM reinforced direct contact information for any additional questions or concerns. Education provided on [facility] located in [facility] of [facility]. Patient provided with after-hours line for [facility], , which offer night time triage service and option to transfer to education finance processor provider if needed. CM discussed with the patient progress made tow ards established goals. Patient notified is being graduated from the Care Management Program. Patient was educated on how to receive care management services in the future. Patient agrees with the plan and will contact us if any future needs arise. * Anton Cárdenas RN - 07/28/2025 11:27 AM EDT CM Anton Cárdenas RN, sent notification to PCP Dr. Randhawa to inform that patient has completed [id number] Complex Care program with goals partially/fully met at this time. documented in this encounter Plan of Treatment Upcoming Encounters Date Type Department Care Team (Late st Contact Info) Description 08/03/2025 10:15 AM EST Office Visit [facility] ADULT DENTAL [address] [place] [address] Byron Bernal documented as of this encounter Visit Diagnoses Not on filedocumented in this encounter Additional Health Concerns Assessment Noted Time PHQ-9 Depression Total Score: 10 05/26/2 025 11:28 AM EDT documented as of this encounter Care Teams Autographer Relationship Specialty Start Date End Date Teena Castillo MD [address] [place] [id number] PCP - General Family Medicine 03/18/19 documented as of this encounter
--- OUTSIDE RECORDS SUMMARY | 2025-08-02 16:42 | XMS_ITS | Encounter Summary ---
Author Organization [employer] Address [address] 7t [place] [address] Care Team Providers Care Supervisor Hot Dip Tinning Name Role Phone Teena Castillo MD Primary Care Provide r Reason for Visit * Reason Comments Med Refill Encounter Details Date Type Department Care Team ([facility] st Contact Info) Description 06/06/2025 Refill [facility] MEDICINE [address] [place], [place] [phone] Teena Castillo MD [address] [place] [address] Class 1 obesity due to excess calories [...] Description 08/03/2025 10:15 AM EST Office Visit [facility] ADULT DENTAL [address] [place] [address] Byron Bernal documented as of this encounter Visit Diagnoses Diagnosis Class 1 obesity due to excess calories with serious comorbidity and body mass index (BMI) of 34.0 to 34.9 in adult documented in this encounter Additional Health Concerns Assessment Noted Time PHQ-9 Depression Total Score: 10 025 11:28 AM EDT documented as of this encounter Care Teams Supervisor Hot Dip Tinning Relationship Specialty Start Date End Date Teena Castillo MD [address] [place] [address] PCP - General Family Medicine 03/18/19 documented as of this encounter
--- OUTSIDE RECORDS SUMMARY | 2025-08-02 16:42 | XMS_ITS | Clinical Summary ---
Author Organization [facility] ity Address [address] [place] [address] Care Team Providers Care Machine Wedger Name Role Phone Teena Castillo MD Primary [...] Cervical Cancer Screening: P ap Smear 2002 HPV Vaccines (1 - 3-dose SCD M series) 2008 Depression Screening 09/29/2024 COVID-19 Vaccine ( - 2023-2 5 season) 2025 Influenza Vaccine (#1) 2025 RSV Immunization Adult Patie nts (1 - 1-dose 75+ series) 2056 HIB Vaccines Aged Out No longer eligi [...] age to complete this topic Care Teams Machine Wedger Relationship Specialty Start Date End Date Teena Castillo MD [address] [place] [phone] PCP - General Internal Medicine 12/31/21
--- OUTSIDE RECORDS SUMMARY | 2025-08-02 16:42 | XMS_ITS | Encounter Summary ---
Author Organization [employer] Address [address] 7[address] [place] [address] Care Team Providers Care Loan Interviewer Mortgage Name Role Phone Teena Castillo MD Primary Care Provide r Reason for Visit * Reason Comments Med Refill Encounter Details Date Type Department Care Team ([facility] st Contact Info) Description 08/11/2023 Refill [facility] CH[facility] MED & PEDS [address] [place], [place] [phone] Nahid Mak MD [address] [place] [address] Essential hypertension Social History Tobacco Use Types [...] Description 08/03/2025 10:15 AM EST Office Visit [facility] ADULT DENTAL [address] [place] [address] Byron Bernal documented as of this encounter Visit Diagnoses Diagnosis Essential hypertension Unspecified essential hypertension documented in this encounter Additional Health Concerns Assessment Noted Time PHQ-9 Depression Total Score: 0 04/04/20 23 2:14 PM EDT documented as of this encounter Care Teams Loan Interviewer Mortgage Relationship Specialty Start Date End Date Teena Castillo MD [address] [place] [phone] PCP - General Family Medicine 03/18/19 documented as of this encounter
--- OUTSIDE RECORDS SUMMARY | 2025-08-02 16:42 | XMS_ITS | Encounter Summary ---
Author Organization [employer] [facility] Address [address] [facility] 7t [place] [address] Care Team Providers Care Energy Operations Vice President Name Role Phone Teena Castillo MD Primary Care Provide r Encounter Details Date Type Department Care Team (Late st Contact Info) Description 02/06/2023 Orders Only [facility] MED & PEDS [address] [place] [address] Melly Mccloud LPN Social History Tobacco Use [...] Description 08/03/2025 10:15 AM EST Office Visit [facility] ADULT DENTAL [address] [place] [address] Byron Bernal documented as of this encounter Visit Diagnoses Not on filedocumented in this encounter Care Teams Energy Operations Vice President Relationship Specialty Start Date End Date Teena Castillo MD [address] [place] [phone] PCP - General Family Medicine 03/18/19 documented as of this encounter
--- OUTSIDE RECORDS SUMMARY | 2025-08-02 16:42 | XMS_ITS ---
Author Organization [employer] Address [address] [facility] 7[address] [place] [address] Care Team Providers Care Photographic Engineer Name Role Phone Teena Castillo MD Primary Care Provide r CM Complex Status:Closed (Closed) Start date:01/26/2025 Enrollment date:04/22/2025 Enrollment reason:ADT Feed End date:07/28/2025 Close reason:Goals Met Overview ADT- Pt admitted to [facility] on 01/25/25. Continued Care and Services Coordination
--- OUTSIDE RECORDS SUMMARY | 2025-08-02 16:42 | XMS_ITS | Encounter Summary ---
Author Organization [employer] Address [address] 7t [place] [address] Care Team Providers Care Metallographic Technician Name Role Phone Teena Castillo MD Primary Care Provide r Encounter Details Date Type Department Care Team (Latest Contact Info) Description 08/01/2025 Travel Social History Tobacco Use Types Packs/Day [...] Description 08/03/2025 10:15 AM EST Office Visit [facility] ADULT DENTAL [address] [place] [address] Byron Bernal documented as of this encounter Visit Diagnoses Not on filedocumented in this encounter Additional Health Concerns Assessment Noted Time PHQ-9 Depression Total Score: 10 05/26/ 025 11:28 AM EDT documented as of this encounter Care Teams Metallographic Technician Relationship Specialty Start Date End Date Teena Castillo MD [address] [place] [phone] PCP - General Family Medicine 03/18/19 documented as of this encounter
--- OUTSIDE RECORDS SUMMARY | 2025-08-02 16:42 | XMS_ITS | Encounter Summary ---
Author Organization [employer] Address [address] [facility] [address] [facility] [address] [place] [address] Care Team Providers Care Boner Meat Name Role Phone Teena Castillo MD Primary Care Provide r Reason for Visit * Reason Comments Med Refill Encounter Details Date Type Department Care Team ([facility] st Contact Info) Description 09/28/2024 Refill [facility] MEDICINE [address] [place], [place] [phone] Teena Castillo MD [address] [place] [address] Class 2 severe obesity due to excess [...] Description 08/03/2025 10:15 AM EST Office Visit [facility] CHC ADULT DENTAL [address] [place] [address] Byron Bernal documented as of this encounter Visit Diagnoses Diagnosis Class 2 severe obesity due to excess calories with serious comorbidity and body mass index (BMI) of 37.0 to 37.9 in adult documented in this encounter Additional Health Concerns Assessment Noted Time PHQ-9 Depression Total Score: 10 024 2:46 PM EDT documented as of this encounter Care Teams Boner Meat Relationship Specialty Start Date End Date Teena Castillo MD [address] [place] [address] PCP - General Family Medicine 03/18/19 documented as of this encounter
--- OUTSIDE RECORDS SUMMARY | 2025-08-02 16:42 | XMS_ITS | Encounter Summary ---
Author Organization [employer] Address [address] [facility] [place] [address] Care Team Providers Care Equine Dentist Name Role Phone Teena Castillo MD Primary Care Provide r Reason for Visit * Reason Comments Med Refill Encounter Details Date Type Department Care Team ([facility] st Contact Info) Description 07/31/[address] [facility] CHC MED & PEDS [address] [place] [address] Teena Castillo MD [address] [place] [address] Vitamin deficiency Social History Tobacco Use Types Packs/Day Years [...] Description 08/03/2025 10:15 AM EST Office Visit [facility] ADULT DENTAL [address] [place] [address] Byron Bernal documented as of this encounter Visit Diagnoses Diagnosis Vitamin deficiency Unspecified vitamin deficiency documented in this encounter Additional Health Concerns Assessment Noted Time PHQ-9 Depression Total Score: 10 025 11:28 AM EDT documented as of this encounter Care Teams Equine Dentist Relationship Specialty Start Date End Date Teena Castillo MD [address] [place] [id number] PCP - General Family Medicine 03/18/19 documented as of this encounter
--- OUTSIDE RECORDS SUMMARY | 2025-08-02 16:42 | XMS_ITS | Encounter Summary ---
Author Organization [employer] Address [address] 7[address] [place] [address] Care Team Providers Care Installer Name Role Phone Teena Castillo MD Primary Care Provide r Reason for Visit * Reason Comments Med Refill Encounter Details Date Type Department Care Team ([facility] st Contact Info) Description 02/17/2025 Refill [facility] MEDICINE [address] [place], [place] [phone] Teena Castillo MD [address] [place] [address] Class 2 severe obesity due to excess [...] 10:15 AM EST Office Visit [facility] ADULT DENTAL [address] [place] [address] Byron Bernal documented as of this encounter Visit Diagnoses Diagnosis Class 2 severe obesity due to excess calories with serious comorbidity and body mass index (BMI) of 37.0 to 37.9 in adult documented in this encounter Additional Health Concerns Assessment Noted Time PHQ-9 Depression Total Score: 17 025 3:24 PM EST documented as of this encounter Care Teams Installer Relationship Specialty Start Date End Date Teena Castillo MD [address] [place] [address] PCP - General Family Medicine 03/18/19 documented as of this encounter
--- OUTSIDE RECORDS SUMMARY | 2025-08-02 16:42 | XMS_ITS | Encounter Summary ---
Author Organization [employer] Address [address] 7[address] [place] [address] Care Team Providers Care Teacher Tutor Name Role Phone Teena Castillo MD Primary Care Provide r Reason for Visit * Reason Onset Date Comments Med Refill 06/27/2025 Encounter Details Date Type Department Care Team (Late st Contact Info) Description 06/27/2025 Refill [facility] MEDICINE [address] [place] [address] Melly Neff, [address] [place] [address] Class 1 obesity due to excess calories [...] encounter Miscellaneous Notes * Telephone Encounter - Blayne Schmidt - 06/27/2025 2:14 PM EDT Tc from pt requesting a PA for the medication since 05/17. Any questions contact pt at [phone] documented in this encounter Plan of Treatment Upcoming Encounters Date Type Department Care Team (Late st Contact Info) Description 08/03/2025 10:15 AM EST Office Visit [facility] CHC ADULT DENTAL [address] [place] [address] Byron Bernal documented as of this encounter Visit Diagnoses Diagnosis Class 1 obesity due to excess calories with serious comorbidity and body mass index (BMI) of 34.0 to 34.9 in adult documented in this encounter Additional Health Concerns Assessment Noted Time PHQ-9 Depression Total Score: 10 025 11:28 AM EDT documented as of this encounter Care Teams Teacher Tutor Relationship Specialty Start Date End Date Teena Castillo MD [address] [place] [id number] PCP - General Family Medicine 03/18/19 documented as of this encounter
--- OUTSIDE RECORDS SUMMARY | 2025-08-02 16:42 | XMS_ITS | Encounter Summary ---
Author Organization [employer] Address [address] [address] [place] [address] Care Team Providers Care Combination Worker Name Role Phone Teena Castillo MD Primary Care Provide r Reason for Visit * Reason Onset Date Comments Med Refill 05/15/2025 Encounter Details Date Type Department Care Team (Late st Contact Info) Description 05/15/2025 Refill [facility] MEDICINE [address] [place] [address] Melly Neff, [address] [place] [address] Class 1 obesity due to excess calories [...] Description 08/03/2025 10:15 AM EST Office Visit [facility] ADULT DENTAL [address] [place] [address] Byron Bernal documented as of this encounter Visit Diagnoses Diagnosis Class 1 obesity due to excess calories with serious comorbidity and body mass index (BMI) of 34.0 to 34.9 in adult documented in this encounter Additional Health Concerns Assessment Noted Time PHQ-9 Depression Total Score: 8 04/22/20 25 8:15 AM EDT documented as of this encounter Care Teams Combination Worker Relationship Specialty Start Date End Date Teena Castillo MD [address] [place] [address] PCP - General Family Medicine 03/18/19 documented as of this encounter
--- OUTSIDE RECORDS SUMMARY | 2025-08-02 16:43 | XMS_ITS | Clinical Summary ---
Author Organization [employer] Address [address] [facility] [address] [place] [address] Care Team Providers Care Betting Clerk Name Role Phone Teena Castillo MD Primary Care Provide r Allergies Active Allergy Reactions Criticality Noted Date Comments Trell Inhibitors Cough 10/08/2010 Medications prazosin (Minipress) 2 MG capsuleIndicati ons:PTSD (post-traumatic stress disorder) take 1 capsule by oral route every bedtime 90 capsule 022 Active Vitamins-Lipotr opics (B Complex Formula 1, [...] (BMI) of 37.0 to 37.9 in adult Inject 0.5 mL (10 mg) under the skin 1 (one) time per week. INJECT ONE PEN (=10 MG) SUBCUTANEOUSLY ONCE A WEEK 2 mL 025 Active acetaminophen (Tylenol) 500 MG [...] 1 tablet by mouth Once per day. 025 Active ascorbic acid (Vitamin C) 500 MG [...] day. 30 tablet 1 025 2025 Active Tirzepatide-Jem ght Management (Zepbound) 15 MG/0.5ML solution auto-injectorIn dications:Class 1 obesity Inject 0.5 mL (15 mg) under the skin 1 (one) time per week. 2 mL 3 025 Active baclofen (Lioresal) 10 MG tabletIndicatio ns:Fibromyositi s Take 1 tablet (10 mg) by mouth 3 times daily. 90 tablet 025 Active Multiple Vitamin (Multivitamin) tabletIndicatio ns:Vitamin deficiency TAKE 1 TABLET BY MOUTH EVERY DAY WITH FOOD 90 tablet 1 025 Active Magnesium Oxide -Mg Supplement 400 MG capsuleIndicati ons:Migraine without aura, not refractory TAKE 1 CAPSULE BY MOUTH ONCE DAILY 30 capsule 1 025 Active hydroquinone 4 % creamIndication s:Melasma APPLY TOPICALLY TO THE AFFECTED AREA(S) TWICE DAILY DIRECTED 28.35 g 025 Active D3-1000 25 MCG (1000 UT) capsuleIndicati ons:Vitamin deficiency TAKE 1 CAPSULE BY MOUTH DAILY 90 capsule 1 025 Active Multiple Vitamin (Multivitamin) tabletIndicatio ns:Vitamin deficiency TAKE 1 TABLET BY MOUTH EVERY DAY WITH FOOD 90 tablet 1 024 2024 Discontinued cholecalciferol (Vitamin D High Potency) 25 MCG (1000 UT) capsuleIndicati ons:Vitamin deficiency TAKE 1 CAPSULE BY MOUTH EVERY DAY 90 capsule 1 025 2024 Discontinued Magnesium 400 MG capsuleIndicati ons:Migraine without aura, not refractory Take 1 capsule by mouth Once per day. 30 capsule 1 025 2024 Discontinued hydroquinone 4 % creamIndication s:Melasma APPLY TOPICALLY TWICE A DAY 28.35 g 025 2024 Discontinued Active Problems Problem Noted [...] mg weekly Arthritis 01/20/2025 Bipolar 1 disorder ([facility]/HCC) 01/20/2025 Class 1 obesity 01/20/2025 Assessment & [...] Obstructive sleep apnea syndrome 12/07/2015 Morbid obesity (CMS/HCC) 12/07/2015 Migraine without aura, not refractory 12/07/2015 [...] Encounters Date Type Department Care Team Description 08/01/2025 Travel 07/31/2025 Refill [facility] [address] [place] [address] Teena Castillo MD Vitamin deficiency 07/28/2025 Patient Outreach [facility] MED[facility] [address] [place] [phone] Teena Castillo MD Care Management (C3CM- f/u call) 07/22/2025 Refill [facility] [address] [place] [phone] Sean Lyles MD Melasma 07/16/2025 Refill [facility] [address] [place] [phone] Teena Castillo MD Migraine without aura, not refractory 07/15/2025 Patient Outreach [facility] [address] [place] [phone] Teena Castillo MD Care Management (C3CM- f/u call) 07/12/2025 Refill [facility] [address] [place] [address] Teena Castillo MD Dizziness 07/04/2025 Refill [facility] [address] [place] [phone] Teena Castillo MD Vitamin deficiency 06/29/2025 Patient Outreach [facility] [address] [place] [phone] Teena Castillo MD Care Management (C3CM- f/u call) 06/28/2025 Patient Outreach [facility] [address] [place] [phone] Teena Castillo MD 06/27/2025 Refill [facility] [address] [place] [phone] Melly Neff DO Class 1 obesity due to excess calories with serious comorbidity and body mass index (BMI) of 34.0 to 34.9 in adult 06/24/2025 Refill [facility] [address] [place] [address] Teena Castillo MD 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 Orders Only GENERIC EXTERNAL DATA DEPARTMENT Provider, Generic External Data 06/15/2025 Patient Outreach [address] [phone] Teena Castillo MD Care Coordination ([facility] f/u) 06/15/2025 Patient Outreach [address] [phone] Teena Castillo MD Care Management (C3CM- f/u call) 06/06/[address] [address] Teena Castillo MD Class 1 obesity due to excess calories with serious comorbidity and body mass index (BMI) of 34.0 to 34.9 in adult 06/02/2025 Patient Outreach [address] [address] Teena Castillo MD Care Management (C3CM- f/u call) 05/27/2025 10:00 AM EDT Office Visit [address] [phone] Sean Lyles MD Melasma 05/27/2025 Travel 05/26/2025 11:00 AM EDT Office Visit [address] [address] Teena Castillo MD Dysuria (Primary Dx); Chronic midline low back pain, unspecified whether sciatica present; Migraine without aura, not refractory; Chronic right shoulder pain; Positive TERRENCE (antinuclear antibody); Arthritis; Class 1 obesity; TERESO (obstructive sleep apnea) 05/26/2025 Orders Only GENERIC EXTERNAL DATA DEPARTMENT Provider, Generic External Data 05/26/2025 Travel 05/25/[address] [phone] Teena Castillo MD chart prep 05/23/2025 Patient Outreach [address] [address] Teena Castillo MD Care Coordination ([facility] f/u) 05/23/2025 Patient Outreach [address] [phone] Teena Castillo MD Care Management (C3- f/u call lvm) 05/18/2025 Refill [facility] [address] [place] [address] Teena Castillo MD Primary hypertension; Vitamin deficiency 05/16/2025 9:30 AM EDT Office Visit [facility] [address] [place] [address] Russ Perdue, DDS Dental caries (Primary Dx) 05/16/2025 Patient Outreach [facility] [address] [place] [phone] Teena Castillo MD 05/15/2025 Refill [facility] [address] [place] [phone] Melly Neff DO Class 1 obesity due to excess calories with serious comorbidity and body mass index (BMI) of 34.0 to 34.9 in adult 05/15/2025 Orders Only GENERIC EXTERNAL DATA DEPARTMENT Provider, Generic External Data 05/05/2025 Patient Outreach [facility] [address] [place] [phone] Teena Castillo MD Care Management ([facility]- f/u call) 05/03/2025 Patient Outreach [facility] [address] [place] [phone] Teena Castillo MD Care Coordination ([facility] f/u) from Last 3 Months Immunizations Immunization Administration [...] 05/27/2025 9:41 AM EDT Plan of Treatment Upcoming Encounters Date Type Department Care Team (Late st Contact Info) Description 08/03/2025 10:15 AM EST Office Visit [facility] ADULT DENTAL [address] [place] [address] Byron Bernal Health Maintenance Due Date Last Done Comments HIV Screening 1980 Family Planning (PISQ) 1996 HPV Vaccines (1 - 3-dose series) 1996 Hepatitis B Vaccines (1 of 3 - 19+ 3-dose series) 2000 DTaP/Tdap/Td Vaccines (2 - Td or Tdap) 08/14/2021 08/14/2011 COVID-19 Vaccine ( - 2024- season) 2025 04/12/2021, 03/22/2021 Influenza Vaccine (#1) [...] Procedure Name Priority Date/Time Associated Diagnosis Comments CT ABDOMEN PELVIS W CONTRAST Routine 06/22/2025 9:00 AM EDT CHLAMYDIA/N. GONORRHOEAE RNA, TMA, UROGENITAL Routine 06/22/2025 8:45 AM EDT BACTERIAL VAGINOSIS PANEL Routine 06/22/2025 8:45 AM EDT URINALYSIS, COMPLETE, WITH REFLEX TO CULTURE Routine 06/22/2025 7:56 AM EDT COMPREHENSIVE METABOLIC PANEL Routine 06/22/2025 7:44 AM EDT CBC WITH AUTO DIFFERENTIAL Routine 06/22/2025 7:44 AM EDT CULTURE, URINE, ROUTINE Routine 06/22/2025 12:00 AM EDT BASIC METABOLIC PANEL Routine 05/26/2025 11:30 AM [...] URINE, ROUTINE Routine 05/15/2025 12:00 AM EDT PROPHYLAXIS - ADULT Routine 03/07/2025 [...] Recently Relevant to Health Maintenance Results * CT Abdomen Pelvis w/ Contrast (06/22/2025 9:00 AM EDT) Anatomical Region Laterality Modality Body, Pelvis, Abdomen Computed T omography 06/22/2025 9:00 AM EDT Narrative 06/22/2025 9:48 AM EDT [place] [address] [address] Scan Report Signed Patient: Dara Garcia MR#: [id number] 46 : 1980 Acct:[id number] Age/Sex: 45 / F ADM Date: 06/22/25 Loc: HO.ED Attending Dr: Ordering Physician: Meseret Del Cid Date of Service: 06/22/25 Procedure(s): CT abdomen pelvis w IV con Accession Number(s): [id number] cc: Teena Castillo MD; Meseret Del Cid Report Number: [id number]: Total DLP = 0.00 mGy-cm Reason for Exam: suprapubic pain, back pain EXAMINATION: CT ABDOMEN AND PELVIS WITH CONTRAST CLINICAL INFORMATION: Suprapubic pain, back pain. COMPARISON: 07/26/2018. TECHNIQUE: Multidetector volumetric images were obtained from the superior aspect of the liver through the pubic symphysis following administration 85 mL of Omnipaque 350 intravenous contrast. Sagittal and coronal reformatted images were obtained on the technologist's workstation. Oral contrast: No This CT examination was performed using dose optimization techniques as appropriate, variously including the following: *Automated exposure control *Adjustment of mA and/or kV according to patient size (this includes techniques or standardized protocols for targeted exams where dose is matched to indication/reason for exam; i.e. extremities or head) *Use of iterative reconstruction technique FINDINGS: LUNG BASES: Lung bases are clear. There are no effusions. The heart size is normal. LIVER, GALLBLADDER, AND BILIARY TREE: The liver is normal in size, shape, and attenuation. No focal hepatic lesion or biliary ductal dilatation is present. The gallbladder is unremarkable with no evidence of radiopaque gallstones, gallbladder wall thickening, or obvious pericholecystic inflammatory changes. PANCREAS: Unremarkable. SPLEEN: Unremarkable. ADRENAL GLANDS: There is mild left hyperplasia. The right is normal. KIDNEYS AND URETERS: The kidneys are normal in size, shape, and attenuation. No hydronephrosis, hydroureter, or calculi seen. No perinephric stranding. There are small left-sided subcentimeter simple cysts, including parapelvic cysts. BLADDER: Poorly distended but grossly normal. GASTROINTESTINAL TRACT: Normal appendix. The stomach is decompressed. There has been a prior gastric sleeve procedure. The duodenum is normal. The small bowel is normal in caliber and course. The colon is normal in caliber and course. No wall thickening or inflammation is evident. The rectum is normal. PERITONEUM: No free intraperitoneal air. There is trace fluid in the pelvic recesses, presumably physiologic. ABDOMINAL WALL: No significant hernia is appreciated. LYMPH NODES: No abnormal lymphadenopathy is present. VASCULAR: Unremarkable. PELVIC VISCERA: There has been a hysterectomy. There is a 2.7 cm simple appearing left ovarian cyst. There are no adnexal masses. OSSEOUS STRUCTURES: No suspicious lytic or blastic bone lesions. Mild degenerative changes of the spine. CT/CT abdomen pelvis w IV con IMPRESSION: 1. No acute findings in the abdomen or pelvis. 2. Prior gastric sleeve procedure. 3. 2.7 cm simple left appearing ovarian cysts. 4. Ancillary findings as discussed. Electronically signed by: Ray Tamez MD 06/22/2025 09:45 AM EDT Dictated By: Ray Tamez MD Signed By: <Electronically signed by Ray Tamez MD in OV> 06/22/2545 DD/ 9 TD/TT: 06/22/25912 Street Supervisor: Procedure Note Donotuseinterpreter, Image - 06/22/[address] [address] [address] Scan Report Signed Patient: Angi Garcia#: [id number] 47 : 1980Acct:[id number] Age/Sex: 45 / FADM Date: 06/22/25 Loc: HO.ED Attending Dr: Ordering Physician: Meseret Del Cid Date of Service: 06/22/25 Procedure(s): CT abdomen pelvis w IV con Accession Number(s): [id number] cc: Teena Castillo MD; Meseret Del Cid Report Number: [id number]: Total DLP = 0.00 mGy-cm Reason for Exam: suprapubic pain, back pain EXAMINATION: CT ABDOMEN AND PELVIS WITH CONTRAST CLINICAL INFORMATION: Suprapubic pain, back pain. COMPARISON: 07/26/2018. TECHNIQUE: Multidetector volumetric images were obtained from the superior aspect of the liver through the pubic symphysis following administration 85 mL of Omnipaque 350 intravenous contrast. Sagittal and coronal reformatted images were obtained on the technologist's workstation. Oral contrast: No This CT examination was performed using dose optimization techniques as appropriate, variously including the following: *Automated exposure control *Adjustment of mA and/or kV according to patient size (this includes techniques or standardized protocols for targeted exams where dose is matched to indication/reason for exam; i.e. extremities or head) *Use of iterative reconstruction technique FINDINGS: LUNG BASES: Lung bases are clear. There are no effusions. The heart size is normal. LIVER, GALLBLADDER, AND BILIARY TREE: The liver is normal in size, shape, and attenuation. No focal hepatic lesion or biliary ductal dilatation is present. The gallbladder is unremarkable with no evidence of radiopaque gallstones, gallbladder wall thickening, or obvious pericholecystic inflammatory changes. PANCREAS: Unremarkable. SPLEEN: Unremarkable. ADRENAL GLANDS: There is mild left hyperplasia. The right is normal. KIDNEYS AND URETERS: The kidneys are normal in size, shape, and attenuation. No hydronephrosis, hydroureter, or calculi seen. No perinephric stranding. There are small left-sided subcentimeter simple cysts, including parapelvic cysts. BLADDER: Poorly distended but grossly normal. GASTROINTESTINAL TRACT: Normal appendix. The stomach is decompressed. There has been a prior gastric sleeve procedure. The duodenum is normal. The small bowel is normal in caliber and course. The colon is normal in caliber and course. No wall thickening or inflammation is evident. The rectum is normal. PERITONEUM: No free intraperitoneal air. There is trace fluid in the pelvic recesses, presumably physiologic. ABDOMINAL WALL: No significant hernia is appreciated. LYMPH NODES: No abnormal lymphadenopathy is present. VASCULAR: Unremarkable. PELVIC VISCERA: There has been a hysterectomy. There is a 2.7 cm simple appearing left ovarian cyst. There are no adnexal masses. OSSEOUS STRUCTURES: No suspicious lytic or blastic bone lesions. Mild degenerative changes of the spine. CT/CT abdomen pelvis w IV con IMPRESSION: 1. No acute findings in the abdomen or pelvis. 2. Prior gastric sleeve procedure. 3. 2.7 cm simple left appearing ovarian cysts. 4. Ancillary findings as discussed. Electronically signed by: Ray Tamez MD 06/22/2025 09:45 AM EDT RP Dictated By: Ray Tamez MD Signed By: <Electronically signed by Ray Tamez MD in OV> 06/22/2545 DD/ 09 TD/TT: 06/22/[address] Supervisor: [facility] External Provider IMG CT PROCEDURES Final Result * Bacterial Vaginosis (06/22/2025 8:45 AM EDT) TRICHOMONAS VAGINALIS DETECTION BY PCR NOT DETECTED Not Detect [facility] BACTERIAL VAGINOSIS DETECTION BY PCR NEGATIVE Negative [facility] Comment:The BV organism targ ets of the Xpert Xpress MVP test can becommensal in women; Xpert Xpress MVP positive results forbacterial vaginosis should be considered in conjunction withother clinical and patient information to determine thedisease status. Organisms that are not detected by the XpertXpress MVP test have also been reported to be associatedwith BV and aerobic vaginitis.The Xpert Xpress MVP test performance has not been evaluatedin patients under the age of 14. CARLENE GROUP DETECTION BY PCR NOT DETECTED Not Detect [facility] Carlene glab krusei PCR NOT DETECTED Not Detect [facility] 06/22/2025 8:45 AM EDT 06/22/2025 8:49 AM EDT us Generic External Data Provider LAB MICROBIOLOGY - GENERAL ORDERABLES Final Result [facility] [address] [place] [address] [phone] * Chlamydia/N. Gonorrhoeae RNA, TMA, Urogenitial (06/22/2025 8:45 AM EDT) CT PCR NOT DETECTED Not Detect. [facility] Comment:A not detected test result does not exclude the possibilityof infection because test results can be affected byimproper specimen collection, concurrent antibiotic therapy,or the number of organisms in the specimen which may bebelow the sensitivity of the test. As with many diagnostictests, results from the Xpert CT/NG assay should beinterpreted in conjunction with other laboratory andclinical data available to the clinician.Xpert CT/NG performance has not been evaluated in patientsless than 14 years of age. The assay should not be used forthe evaluationof suspected sexual abuse or for other medico-legalindications. Additional testing is recommended in anycircumstance when false positive or false negative resultscould lead to adverse medical, social or psychologicalconsequences. NG PCR NOT DETECTED Not Detect. [facility] Comment:A not detected test result does not exclude the possibilityof infection because test results can be affected byimproper specimen collection, concurrent antibiotic therapy,or the number of organisms in the specimen which may bebelow the sensitivity of the test. As with many diagnostictests, results from the Xpert CT/NG assay should beinterpreted in conjunction with other laboratory andclinical data available to the clinician.Xpert CT/NG performance has not been evaluated in patientsless than 14 years of age. The assay should not be used forthe evaluationof suspected sexual abuse or for other medico-legalindications. Additional testing is recommended in anycircumstance when false positive or false negative resultscould lead to adverse medical, social or psychologicalconsequences. 06/22/2025 8:45 AM EDT 06/22/2025 8:49 AM EDT us Generic External Data Provider LAB MICROBIOLOGY - GENERAL ORDERABLES Final Result Performing Organization Address City/[facility]/ZIP Co de Phone Number [facility] [address] [place] [address] [phone] * (ABNORMAL) Urinalysis, Complete, with Reflex to Culture (06/22/2025 7:56 AM EDT) Only the most recent of2 resultswithin the time period is included. Color Urine Yellow [facility] Appearance Urine Cloudy [facility] PH 6.0 5.0 - 9.0 [facility] Glucose Urine UA >=1000(A) Negative mg/dL [facility] Urine Blood Moderate (2+)(A) Negative [facility] Specific [place] - Urine >=1.030(H) 1.005 - 1.025 [facility] Urine Protein 30 (1+)(A) Neg-Trace mg/dL [facility] Urine Ketones Trace Negative mg/dL [facility] Nitrite Urine Positive(A) Negative [facility] Leukocyte Esterase Urine Moderate (2+)(A) Negative [facility] RBC Urine >20(A) 0 - 2 /HPF [facility] Urine WBC >50(A) 0 - 5 /HPF [facility] Urine Squamous Epithelial Cell 0-2 0 - 2 /HPF [facility] Urine Bacteria 4+ None Seen [facility] Hyaline Casts, Urine 0-2 0 - 2 /LPF [facility] 06/22/2025 7:56 AM EDT 06/22/2025 8:00 AM EDT Narrative [facility] - 06/22/2025 8:10 AM EDT Urine, Clean Catch us Generic External Data Provider LAB URINE ORDERAB LES Final Result Performing Organization Address [facility]/ZIP Co de Phone Number [facility] [address] [place] [address] [phone] * (ABNORMAL) CBC auto differential (06/22/2025 7:44 AM EDT) Only the most recent of2 resultswithin the time period is included. White Blood Count 8.9 4.8 - 10.8 X10*3/uL [facility] Red Blood Count 5.28 4.20 - 5.50 X10*6/uL [facility] Hemoglobin 14.2 12.0 - 16.0 g/dl [facility] Hematocrit 42.6 37.0 - 47.0 % [facility] Mean Corpuscular Volume 80.7 80.0 - 98.0 fL [facility] Mean Corpuscular Hemoglobin 26.9(L) 27.0 - 33.0 pg [facility] Mean Corpuscular HGB Conc 33.3 31.0 - 35.0 g/dl [facility] Red Cell Distribution Width 14.3 11.0 - 16.0 % [facility] Platelet Count 256 160 - 400 X10*3/uL [facility] Mean Platelet Volume 9.7 9.4 - 12.3 fL [facility] Neutrophils Percent Auto 78.0(H) 45 - 73 % [facility] Imm Gran Pct Auto 0.7(H) 0.0 - 0.4 % [facility] Lymphocytes Percent Auto 11.0(L) 20 - 40 % [facility] Monocytes Percent Auto 7.8 2 - 11 % [facility] Eosinophils Percent Auto 1.8 0 - 4 % [facility] Basophils Percent Auto 0.7 0 - 2 % [facility] NRBC Pct Auto 0.0 0.0 - 0.2 /100WBC [facility] Neutrophils Absolute Auto 6.9 2.0 - 8.3 x10*3/uL [facility] Imm Gran Abs Auto 0.06(H) 0.00 - 0.03 X10*3/uL [facility] Lymphocytes Absolute Auto 1.0(L) 1.2 - 4.9 X10*3/uL [facility] Monocytes Absolute Auto 0.7 0.1 - 1.2 X10*3/uL [facility] Eosinophils Absolute Auto 0.2 0.0 - 0.4 X10*3/uL [facility] Basophils Absolute Auto 0.1 0.0 - 0.2 X10*3/uL [facility] NRBC Abs Auto 0.000 0.0 - 0.012 X10*3/uL [facility] 06/22/2025 7:44 AM EDT 06/22/2025 7:50 AM EDT us Generic External Data Provider LAB BLOOD ORDERAB LES Final Result [facility] [address] [place] [address] [phone] * (ABNORMAL) Comprehensive Metabolic Panel (06/22/2025 7:44 AM EDT) Only the most recent of2 resultswithin the time period is included. Sodium 141 135 - 145 mmol/L [facility] Potassium 3.8 3.3 - 5.1 mmol/L [facility] Comment:Slight Hemolysis.Int erpret result with caution. Chloride 111(H) 96 - 108 mmol/L [facility] Carbon Dioxide 22 22 - 29 mmol/L [facility] Anion Gap 12 12 - 20 [facility] Urea Nitrogen (BUN) 11 9 - 16 mg/dL [facility] Creatinine, Serum 0.95 0.5 - 1.4 mg/dL [facility] Creatinine Clr Calc Pharmacy 79.1 [facility] Comment:Provided height and weight: 162.56 cm,83.8 kg.eGFR (calculated from the MDRD study equation) and eCrCl(calculated from the Cockcroft-Gault equation) are based ondifferent parameters and may not yield comparable results.If eCrCl result is absurd, please check patient'sheight/weight. Estimated Glomerular Filt Rate >60 [facility] Comment:Chronic Kidney Disea se: Estimated GFR < 60 mL/min/1.96y0Ignyxv Kidney Disease: Estimated GFR < 15 mL/min/1.73m2 Glucose 110 60 - 115 mg/dL [facility] Calcium 9.1 8.4 - 10.2 mg/dL [facility] Bilirubin, Total 0.4 0.0 - 1.0 mg/dL [facility] Aspartate Amino Transferase 29 5 - 31 U/L [facility] Comment:Slight Hemolysis.Int erpret result with caution. Alanine Aminotransferase 20 0 - 31 U/L [facility] Total Protein 7.5 6.5 - 8.0 g/dL [facility] Albumin Level 3.9 3.5 - 5.0 g/dL [facility] Alkaline Phosphatase 89 39 - 117 U/L [facility] 06/22/2025 7:44 AM EDT 06/22/2025 7:50 AM EDT Generic External Data Provider LAB BLOOD ORDERAB LES Final Result Performing Organization Address [facility] de Phone Number [facility] [address] [place] [phone] * Culture, Urine, Routine (06/22/2025 12:00 AM EDT) Only the most recent of2 resultswithin the time period is included. Urine Urine specimen obtained by clean catch procedure / Unknown 06/22/2025 06/22/2025 Comment:[facility]ACC Narrative [facility] - 06/24/2025 8:09 AM EDT Escherichia coli Quant > 100,000 cfu/mL Escherichia coli: Ampicillin 4(S) Escherichia coli: Cefazolin (Urine) <=1(S) Escherichia coli: Cefepime <=0.12(S) Escherichia coli: Ceftriaxone <=0.25(S) Escherichia coli: Ciprofloxacin <=0.06(S) Escherichia coli: Gentamicin <=1(S) Escherichia coli: Nitrofurantoin 32(S) Escherichia coli: Trimethoprim/Sulfamethoxazole <=20(S) Specimen Source: Urine clean catch Generic External Data Provider LAB MICROBIOLOGY - GENERAL ORDERABLES Final Result Performing Organization Address [facility] Co de Phone Number [facility] [address] [place] [phone] * Basic Metabolic Panel (05/26/2025 11:30 AM EDT) Sodium 140 135 - 145 mmol/L [facility] Potassium 3.5 3.3 - 5.1 mmol/L [facility] Chloride 106 96 - 108 mmol/L [facility] Carbon Dioxide 25 22 - 29 mmol/L [facility] Anion Gap 13 12 - 20 [facility] Urea Nitrogen (BUN) 9 9 - 16 mg/dL [facility] Creatinine, Serum 0.84 0.5 - 1.4 mg/dL [facility] Estimated Glomerular Filt Rate >60 [facility] Comment:Chronic Kidney Disea se: Estimated GFR < 60 mL/min/1.66f1Samvxl Kidney Disease: Estimated GFR < 15 mL/min/1.73m2 Glucose 83 60 - 115 mg/dL [facility] Calcium 9.2 8.4 - 10.2 mg/dL [facility] 05/26/2025 11:3 0 AM EDT 05/26/2025 1:12 PM EDT us Generic External Data Provider LAB BLOOD ORDERAB LES Final Result [facility] [address] [place] [phone] * XR Lumbar Spine 2-3 Views (05/26/2025 11:14 AM EDT) Anatomical Region Laterality Modality Spine, L-spine Radiographic Anyi ging 05/26/2025 11:1 4 AM EDT Narrative 05/26/2025 12:46 PM EDT [address] [address] XRay Report Signed Patient: Dara Garcia MR#: [id number] 46 : 1980 Acct:[id number] Age/Sex: 45 / F ADM Date: 05/26/25 Loc: [facility] Attending Dr: Augustine Ag SELECTOR PACKER Ordering Physician: Teena Castillo MD Date of Service: 05/26/25 Procedure(s): XR lumbar spine 2-3V Accession Number(s): [id number] cc: Teena Castillo MD EXAMINATION: XR LUMBOSACRAL [...] 05/26/25 1243 DD/ 1114 TD/TT: 05/26/[address] Supervisor: Procedure Note Donotuseinterpreter, Image - 05/26/2025 [place] [address] XRay Report Signed Patient: Angi Garcia#: [id number] 46 : 1980Acct:[id number] Age/Sex: 45 / FADM Date: 05/26/25 Loc: [facility] Attending Dr: Augustine Ag SELECTOR PACKER Ordering Physician: Teena Castillo MD Date of Service: 05/26/25 Procedure(s): XR lumbar spine 2-3V Accession Number(s): [id number] cc: Teena Castillo MD EXAMINATION: XR LUMBOSACRAL [...] 05/26/25 1243 DD/ 1114 TD/TT: 05/26/[address] Supervisor: us Teena Otoole MD IMG XR PROCEDURES Fin al Result * High Sensitivity Troponin I (05/15/2025 2:49 PM EDT) Only the most recent of2 resultswithin the time period is included. TROPONIN I HIGH SENSITIVITY <2.7 <3.5 - 17.0 ng/L [facility] Comment:The [place] high sens itivity Troponin-I results should beused in conjunction with other diagnostic information suchas ECG, clinical observations and information, and patientsymptoms to aid in the diagnosis of CA. 05/15/2025 2:49 PM EDT 05/15/2025 2:52 PM EDT us Generic External Data Provider LAB BLOOD ORDERAB LES Final Result [facility] [address] [place] [phone] * XR Chest 1 View (05/15/2025 11:18 AM EDT) Anatomical Region Laterality Modality Chest Radiographic Anyi ging 05/15/2025 11:1 8 AM EDT Narrative 05/15/2025 11:19 AM EDT [address] [address] XRay Report Signed Patient: Dara Garcia MR#: [id number] 46 : 1980 Acct:[id number] Age/Sex: 44 / F ADM Date: 05/15/25 Loc: HO.ED Attending Dr: Ordering Physician: Generic ED Physician Date of Service: 05/15/25 Procedure(s): XR chest 1V Accession Number(s): [id number] cc: Teena Castillo MD; Generic ED Physician [...] 05/15/25 1119 DD/ 1118 TD/TT: 05/15/[address] Supervisor: Procedure Note Donotuseinterpreter, Image - 05/15/[address] [address] XRay Report Signed Patient: Chuck GarciaR#: [id number] 46 : 1980Acct:[id number] Age/Sex: 44 / FADM Date: 05/15/25 Loc: HO.ED Attending Dr: Ordering Physician: Generic ED Physician Date of Service: 05/15/25 Procedure(s): XR chest 1V Accession Number(s): [id number] cc: Teena Castillo MD; Generic ED Physician [...] 05/15/25 1119 DD/ 1118 TD/TT: 05/15/[address] Supervisor: [facility] External Provider IMG XR PROCEDURES Edited Result - Final * D Dimer High Sensitivity (05/15/2025 9:04 AM EDT) D Dimer High Sensitivity <150 NG/ML [facility] Comment:D-DIMER HS REFERENCE RANGENote: Our assay [...] Provider LAB BLOOD ORDERAB LES Final Result [facility] [address] [place] [phone] * SARS-CoV-2 RNA, Influenza A/B, and RSV RNA, Ql NAAT (05/15/2025 9:04 AM EDT) Influenza A PCR NEGATIVE Negative [facility] Influenza B PCR NEGATIVE Negative [facility] Resp Syncy Virus RNA Qual PCR NEGATIVE Negative [facility] SARS COV2 PCR NEGATIVE Negative [facility] Comment:All test results mus t be [...] use by authorized laboratories.Testing performed on the [employer] GeneXpert utilizingreal-time RT-PCR.All SARS CoV2 and positive influenza A/B results arereported to [facility]. 05/15/2025 9:04 AM EDT 05/15/2025 9:08 AM EDT Generic External Data Provider LAB MICROBIOLOGY - GENERAL ORDERABLES Final Result Performing Organization Address [facility] Co de Phone Number [facility] [address] [place] [phone] * Prothrombin Time-INR (05/15/2025 9:04 AM EDT) Prothrombin Time 11.6 10.9 - 12.4 SEC [facility] INTERNATIONAL NORM RATIO 1.0 0.9 - 1.1 [facility] Comment:INTERNATIONAL NORMAL IZED RATIO (INR) REFERENCE [...] ORDERAB LES Final Result Performing Organization Address [facility] de Phone Number [facility] [address] [place] [phone] * Magnesium (05/15/2025 9:04 AM EDT) Magnesium 2.3 1.6 - 2.6 mg/dL [facility] 05/15/2025 9:04 AM EDT 05/15/2025 9:08 AM EDT us Generic External Data Provider LAB BLOOD ORDERAB LES Final Result Performing Organization Address [facility]/ZIP Co de Phone Number [facility] [address] [place] [phone] * Lipid Panel, Standard (12/22/2024 8:37 AM EDT) Triglycerides 61 <150 mg/dL [facility] Comment:Desirable Triglyceri de: less than 150 mg/dLBorderline High Triglyceride 150-199 mg/dLHigh Triglyceride: 200-499 mg/dLVery High Triglyceride: greater than or equal to 5OO mg/dL Cholesterol 155 <200 mg/dL [facility] Comment:Desirable Cholestero l: less than 200 mg/dLBorderline High Cholesterol: 200-239 mg/dLHigh Cholesterol: greater than 239 mg/dL LDL Cholesterol Calculated 89 <100 mg/dL [facility] Comment:Desirable LDL: less than 100 mg/dLNear Optimal/Above Optimal LDL: 110- 129 mg/dLBorderline High LDL: 130-159 mg/dLHigh LDL: 160-189 mg/dLVery High LDL: greater than or equal to 190 mg/dL HDL Cholesterol 54 >40 mg/dL [facility] Comment:Desirable HDL: great er than 40 mg/dL Note: This HDL assay may give artificially low results in patients with liver disease. Blood Venous blood specimen / Unknown 12/22/2024 8:37 AM EDT 12/22/2024 11:05 AM EDT us Teena Otoole MD LAB BLOOD ORDERABLES Final Result Performing Organization Address City/[facility]/ZIP Co de Phone Number [facility] [address] [place] [phone] * BI Mammogram Screening Tomosynthesis Bilateral (09/01/2024 11:55 AM EST) Anatomical Region Laterality Modality Breast Bilateral Mammography 09/01/2024 11:5 5 AM EST Narrative 09/07/2024 3:10 PM EST [address] [place] [address] Mammography Report Signed Patient: Dara Garcia MR#: [id number] 46 : 1980 Acct:[id number] Age/Sex: 44 / F ADM Date: 09/01/24 Loc: HO.MAMMO Attending Dr: Teena Otoole MD Ordering Physician: Teena Castillo MD Results: 1Negative Date of Service: 09/01/24 Follow Up: 1 Year From Orig inal Mammogram Procedure(s): MM tomosynthesis screening BI Accession Number(s): [id number] cc: Teena Castillo MD EXAMINATION: MM SCREENING [...] 09/07/24 1507 DD/ 1155 TD/TT: 09/01/[address] Supervisor: Procedure Note Donotuseinterpreter, Image - 09/07/[address] [place] [address] Mammography Report Signed Patient: Angi Garcia#: [id number] 46 : 1980Acct:[id number] Age/Sex: 44 / FADM Date: 09/01/24 Loc: HO.MAMMO Attending Dr: Teena Otoole MD Ordering Physician: Teena Castillo MDResults: 1Negative Date of Service: 09/01/24Follow Up: 1 Year From Orig inal Mammogram Procedure(s): MM tomosynthesis screening BI Accession Number(s): [id number] cc: Teena Castillo MD EXAMINATION: MM SCREENING [...] by: Liudmila Erickson DO 09/07/2024 03:07 PM [facility] Dictated By: Liudmila Erickson DO Signed By: <Electronically signed by Liudmila Erickson DO in OV> 09/07/24 1507 DD/ 1155 TD/TT: 09/01/[address] Supervisor: Teena Otoole MD IMG BI PROCEDURES Fin al Result * Hepatitis C Antibody with Reflex to HCV, RNA, Quantitative, Real-Time PCR (02/11/2024 6:14 AM EDT) Hepatitis C Antibody Nonreactive Nonreactive [facility] Comment:Antibodies to HCV no t detected; does not exclude early acuteHCV infection. Blood Venous blood specimen / Unknown 02/11/2024 6:14 AM EDT 02/11/2024 6:14 AM EDT Teena Otoole MD LAB BLOOD ORDERABLES Final Result Performing Organization Address [facility] Co de Phone Number [facility] [address] [place] [phone] * HPV mRNA E6/E7 w/Reflex to HPV Genotypes 16, 18/45 (05/01/2023 12:00 AM EDT) Pathologist [facility] HPV nRNA E6/E7 Not Detected Not Detected [facility] Comment:Methodology: Transcr iption-Mediated AmplificationThis assay detects E6/E7 viral messenger RNA (mRNA) from 14high-risk HPV types (16,18,31,33,35,39,45,51,52,56,58,59,66,68).Cervical sources are required for HPV testing.If a vaginal source from a patient who has had atotal hysterectomy with removal of cervix wassubmitted, please contact the testing laboratoryfor alternative testing options.For additional information, please refer [email or web address]/[email or web address](This link if provided for information/educational purposes only.)THIS TEST WAS PERFORMED AT:[facility] [place] [phone] JUÁREZ MD HPV mRNA E6/E7 [facility] HPV 16 RNA [facility] HPV 18/45 RNA [facility] 05/01/2023 05/02/2023 10: 15 AM EDT Rachel Gaytan CNM LAB CYTOLOGY ORDERABLES F inal Result Performing Organization Address [facility]/ZIP Co de Phone Number [facility] [address] [place] [phone] * Pap Smear (05/01/2023 12:00 AM EDT) 05/01/2023 05/02/2023 10: 15 AM EDT Abdelrahman [facility] - 05/24/2023 4:11 PM EDT ----- ------- Name: Dara Garcia Age/Sex: 42/F : 1980 Unit#: [id number] Attend Dr: RACHEL GAYTAN CNM Re05/01/23 Status: DEP REF Location: HO.HHCLNP Disch: ----- ------- SPEC : [id number] RECD: 05/02/23-1015 STATUS: BRIDGET GARZA NUM: [id number] SUDARSHAN: 05/01/23-[address]: RACHEL GAYTAN CNM ENTERED: 05/05/23-1323 SP TYPE: Pap Smr OT : ORDERED: Pap Smear Interpretation Satisfactory for evaluation. Negative for intraepithelial lesion or malignancy. HPV mRNA E6/E7: NOT DETECTED This assay detects E6/E7 viral messenger RNA (mRNA) from 14 high-risk HPV types (16, 18, 31, 33, 35, 39, 45, 51, 52, 56, 58, 59, 66, 68) HPV testing performed by [employer], [place], [place]. See reference laboratory portion of the EMR for entire report. Clinical Information LMP:Unknown date Previous PAP test:Unknown date/findings Material Received ThinPrep-Cervical ----- ------- Signed (signature on file) Meseret Raygoza 05/24/23 1611 ----- ------- END OF REPORT Rachel Gaytan [facility] CYTOLOGY ORDERABLES F inal Result [facility] [address], [place] [phone] from Last 3 Months or Most Recently Relevant to Health Maintenance Insurance [employer] AD[place] Care Teams Betting Clerk Relationship Specialty Start Date End Date Teena Castillo MD [address] [place] [phone] PCP - General Family Medicine 03/18/19
== END 2025-08-02 15:20 | disposition home or self-care (01) ==
LOC: HO.HWS 13:40
PROVIDERS: PCP Internal Medicine; Visit Provider Obstetrics & Gynecology
DX: R31.29 Other microscopic hematuria (principal); N83.209 Unspecified ovarian cyst, unspecified side; N76.0 Acute vaginitis; Z32.02 Encounter for pregnancy test, result negative; N39.0 Urinary tract infection, site not specified
CPT/HCPCS: 99213

== ENCOUNTER 2025-08-02 13:40 | Outpatient (REF) | payer MEDICAID, SELFPAY ==
[2025-08-02 23:59] LABS: Bacterial Vaginosis PCR NEGATIVE (Negative); Candida Group PCR DETECTED (Not Detect); Candida glab krusei PCR NOT DETECTED (Not Detect); Trichomonas vaginalis PCR NOT DETECTED (Not Detect)
[2025-08-03 00:09] LABS: CT PCR NOT DETECTED (Not Detect.); NG PCR NOT DETECTED (Not Detect.)
== END 2025-08-02 13:41 | disposition home or self-care (01) ==
LOC: HO.LNP 13:40
PROVIDERS: PCP Internal Medicine; Visit Provider Obstetrics & Gynecology
DX: R31.29 Other microscopic hematuria (principal); N76.0 Acute vaginitis; N83.209 Unspecified ovarian cyst, unspecified side; Z32.02 Encounter for pregnancy test, result negative; Z20.2 Contact with and (suspected) exposure to infections with a predominantly sexual mode of transmission
CPT/HCPCS: 81002; 81025; 81515; 87086; 87255; 87491; 87591; 99212

== ENCOUNTER 2025-08-17 12:38 | Outpatient (AMB) | payer MEDICAID, SELFPAY ==
[2025-08-17 12:55] VITALS: BP 120/64; PULSE 98; BMI 32.1
--- NOTE | 2025-08-17 12:55 | MHC.OFFVIS ---
Vital Signs 08/17/25 12:55 Height 5 ft 3 in Weight 181 lb 3.52 oz BMI 32.1 BP 120/64 Blood Pressure Location Lt brachial Position Sitting Pulse 98 Pulse Source Pulse Oximeter Intake Visit Reasons: 3 mth f/up Elementary Esl Teacher Required: Yes Elementary Esl Teacher Services: Elementary Esl Teacher Present Elementary Esl Teacher Name: Ken Jones [phone] Accompanied by: Other Relationship Allergies No Known Allergies Allergy (Verified 08/17/25 12:58) Medication List - Last Reconciled 08/17/25 by Augustine Ag NP amlodipine 10 mg PO DAILY baclofen 10 mg PO TID buspirone 10 mg PO TID cholecalciferol (vitamin D3) (Vitamin D3) 25 mcg PO DAILY duloxetine 60 mg PO DAILY duloxetine 20 mg PO DAILY empagliflozin 10 mg PO DAILY ferrous sulfate (FeroSul) 325 mg PO DAILY meclizine 50 mg PO BID PRN metoprolol succinate ER 50 mg PO DAILY mirtazapine 7.5 mg PO BEDTIME multivitamin 1 tab PO DAILY sacubitril-valsartan 24-26 mg 1 tab PO BID terconazole 0.8% 1 appful vaginal BEDTIME 3 days tirzepatide (weight loss) (Zepbound) mg subcut QWEEK vitamin B complex-folic acid 0.4 mg (B Complex 1 (with folic acid)) 1 tab PO DAILY HPI Comments Details: This is a 45-year-old female patient coming in for a follow-up visit, accompanied by her . A director of planning was used throughout the visit. The patient with medical history of hypertension, nonischemic cardiomyopathy, and obesity. Given reports of shortness of breath palpitations, patient has undergone ischemic workup negative for any coronary artery disease. Today, patient is reporting feeling well overall without any cardiac symptoms of exertional chest pain, shortness of breath, palpitations, dizziness, orthopnea, PND, leg edema, presyncope or syncope. Patient is reporting compliance with all her medications. Today patient is asking if she can go back on trazodone as she was taking this for sleep previously and was effective. Patient states that this was stopped by one of the doctors due to her ongoing chest discomfort. [facility] Medical History (Updated 08/17/25 @ 13:25 by Augustine Ag NP) Abnormal echocardiogram Unstable angina Angina at rest Chest pain Steatosis, liver BMI 38.0-38.9,adult BMI 39.0-39.9,adult Obesity Vitamin A deficiency H. pylori infection GERD (gastroesophageal reflux disease) Obstructive sleep apnea on CPAP Morbid obesity Excessive daytime sleepiness Anemia Bipolar 1 disorder Depression Arthritis Migraine Fibromyalgia Sleep apnea Vertigo HTN (hypertension) Surgical History S/P cardiac cath S/P laparoscopic sleeve gastrectomy Hx of tubal ligation Hx of section Family History Mother Hypertension Heart problem Arthritis Diabetes Pacemaker Father Vitiligo Sister No problems noted. Sister No problems noted. Sister No problems noted. Sister No problems noted. Sister No problems noted. Brother No problems noted. Brother No problems noted. Son No problems noted. Son No problems noted. Social History Household Members: Spouse and Children Are you a primary special needs caregiver to a significant other at home: No Do you presently have visiting nurse or other home services: No Alcohol intake: current Alcohol intake frequency: does not drink Patient Tobacco Use Status: Never used Tobacco service: No Current occupational status: disabled Review of Systems Const Denies daytime sleepiness, Denies difficulty sleeping, Denies snoring, Denies stops breathing during sleep and Denies weakness Card Denies chest pain, Denies rapid heart rate, Denies irregular heart rhythm, Denies claudication, Denies leg edema, Denies lightheadedness, Denies palpitations, Denies dyspnea, Reports dyspnea on exertion, Denies orthopnea, Denies paroxysmal nocturnal dyspnea and Denies slow heart rate Resp Denies cough, Denies dyspnea, Reports dyspnea on exertion and Denies snoring GI Reports no additional complaints, Denies hematochezia, Denies change in stool character and Denies dyspepsia Musc Denies abnormal gait, Denies muscle weakness and Denies numbness Neuro Denies abnormal gait, Denies numbness and Denies weakness Endo Denies palpitations Physical Exam Vital Signs: Last Vital Signs Pulse 98 08/17/25 12:55 BP 120/64 08/17/25 12:55 BMI result Body Mass Index 32.1 Const General: cooperative, healthy appearing, comfortable and no acute distress Orientation/consciousness: patient oriented x3 HEENT Head: Yes normal to inspection Neck Neck: Yes normal visual inspection, Yes trachea midline and Yes supple Chest Chest palpation & inspection: normal inspection of the chest Resp Effort & Inspection: normal respiratory effort Auscultation: clear to auscultation bilaterally, no crackles, no rales, no rhonchi and no wheezes Cardio Jugular venous distension: no JVD Palpation: normal PMI Rate: regular rate Rhythm: regular rhythm Heart sounds: S1 normal heart sound present, S2 normal heart sound present, no click, no gallops, no murmurs and no rubs Peripheral pulses: Peripheral pulses 2+ throughout GI Inspection: Yes normal to inspection Palpation (GI): Soft to palpation Auscultation: normal bowel sounds Skin General skin exam: no rashes or lesions noted Neuro General: patient oriented x3 Extrem General: Yes normal to inspection, No no pedal edema and No calf tenderness Psych Appearance: grossly normal Mental Status: mental status grossly normal Speech and movement: Normal speech and movement present Assessment & Plan Assessment & Plan (1) Nonischemic cardiomyopathy: Code(s): I42.8 - Other cardiomyopathies Category: Medical Plan: 01/26/2025-patient underwent a cardiac catheterization with Dr. Lira at [facility] that showed no significant coronary artery disease. 03/04/2025-patient underwent cardiac MRI that showed reduced LV systolic function with an ejection fraction at 48% consistent with nonischemic cardiomyopathy. Clinically stable and without any cardiac symptoms. Euvolemic. Continue current regimen of Jardiance, metoprolol, Entresto, and amlodipine. Discussed signs and symptoms to watch for with heart failure. Advised low-salt diet, daily weight monitoring, and compression socks as needed. Plan for an echo prior to next visit. Patient's main complaint today is needing assistance with sleeping aid. Patient was on trazodone previously which was helping however this was stopped by her PCP or psychiatrist due to ongoing chest discomfort. Patient can go back on trazodone. (2) HTN (hypertension): Code(s): I10 - Essential (primary) hypertension Category: Medical Plan: Blood pressure today is well-controlled. Continue current regimen with a blood pressure goal less than 130/80. Advised monitoring blood pressures at home. Advised on heart healthy diet, regular exercise, losing weight, med compliance, and aggressive management of vascular risk factors. Follow up in 6 months. In the interim, patient will call the office with any concerns or change in symptoms. This note was generated using voice recognition software. While every effort has been made to ensure accuracy and proper recorder helper gravity prospecting, there may be occasional errors that could affect the content or meaning of the described symptoms. Coding Level of Care Code Est Pt Level 4 (27963) Complex EM visit Add On G2211 Diagnoses Nonischemic cardiomyopathy I42.8 HTN (hypertension) I10 Time Spent (min) 32 Comment Time spent in reviewing the chart, test results, assessment, counseling and documentation.
--- OUTSIDE RECORDS SUMMARY | 2025-08-17 23:56 | XMS_ITS | Clinical Summary ---
Author Organization [facility] Address [address] [place] [phone] Care Team Providers Care Watch And Clock Repairer Name Role Phone Teena Castillo MD Primary [...] Depression Screening 09/29/2024 COVID-19 Vaccine ( - 2024-2 6 season) 2025 Influenza Vaccine (#1) 2025 RSV [...] age to complete this topic Care Teams Watch And Clock Repairer Relationship Specialty Start Date End Date Teena Castillo MD [address] [place] [phone] PCP - General Internal Medicine 12/31/21
== END 2025-08-17 13:23 | disposition home or self-care (01) ==
LOC: HO.HCS 12:39
PROVIDERS: PCP Internal Medicine
DX: I42.8 Other cardiomyopathies (principal); I10 Essential (primary) hypertension
CPT/HCPCS: 99214

== ENCOUNTER → 2025-08-17 12:38 | Outpatient (BNVA) | payer MEDICAID, SELFPAY | PROVIDERS: PCP Internal Medicine | DX: I10 Essential (primary) hypertension (principal); I42.8 Other cardiomyopathies | CPT/HCPCS: 99212 ==

== ENCOUNTER 2025-08-24 10:33 | Outpatient (AMB) | payer MEDICAID, SELFPAY ==
--- NOTE | 2025-08-24 11:02 | MHC.OFFVIS ---
Vital Signs 08/24/25 11:13 Height 5 ft 3 in Weight 179 lb BMI 31.7 BP 104/60 Intake Visit Reasons: Urine dip Yacht Captain Required: Yes Yacht Captain Language: Jordanian Allergies No Known Allergies Allergy (Verified 08/17/25 12:58) HPI Comments Details: Presenting for repeat urine dip, last visit urine dip showed microscopic hematuria PFS Medical History (Updated 08/24/25 @ 11:13 by Shun Nelson MD) Abnormal echocardiogram Unstable angina Angina at rest Chest pain Steatosis, liver BMI 38.0-38.9,adult BMI 39.0-39.9,adult Obesity Vitamin A deficiency H. pylori infection GERD (gastroesophageal reflux disease) Obstructive sleep apnea on CPAP Morbid obesity Excessive daytime sleepiness Anemia Bipolar 1 disorder Depression Arthritis Migraine Fibromyalgia Sleep apnea Vertigo HTN (hypertension) Surgical History S/P cardiac cath S/P laparoscopic sleeve gastrectomy Hx of tubal ligation Hx of section Family History Mother Hypertension Heart problem Arthritis Diabetes Pacemaker Father Vitiligo Sister No problems noted. Sister No problems noted. Sister No problems noted. Sister No problems noted. Sister No problems noted. Brother No problems noted. Brother No problems noted. Son No problems noted. Son No problems noted. Social History Household Members: Spouse and Children Are you a primary insurance healthcare representative to a significant other at home: No Do you presently have visiting nurse or other home services: No Alcohol intake: current Alcohol intake frequency: does not drink Patient Tobacco Use Status: Never used Tobacco service: No Current occupational status: disabled Review of Systems Const All systems reviewed & are unremarkable except as noted in HPI and below Reports as per HPI and Reports no additional complaints GI Reports no additional complaints Reports no additional complaints Assessment & Plan Assessment & Plan (1) Microscopic hematuria: Comment: Resolved Code(s): R31.29 - Other microscopic hematuria Category: Medical Plan: Urine dip repeated showed no evidence of microscopic hematuria, the patient was reassured. All questions answered, the patient verbalized understanding. Coding Level of Care Code Est Pt Level 3 (59851) Diagnoses Microscopic hematuria R31.29
[2025-08-24 11:13] VITALS: BP 104/60; BMI 31.7
--- OUTSIDE RECORDS SUMMARY | 2025-08-24 12:38 | XMS_ITS | Clinical Summary ---
Author Organization [facility] ity Address [address] [place] [address] Care Team Providers Care Load Dispatcher Local Name Role Phone Teena Castillo MD Primary [...] age to complete this topic Care Teams Load Dispatcher Local Relationship Specialty Start Date End Date Teena Castillo MD [address] [place] [phone] PCP - General Internal Medicine 12/31/21
== END 2025-08-24 11:16 | disposition home or self-care (01) ==
LOC: HO.HWS 10:34
PROVIDERS: PCP Internal Medicine; Visit Provider Obstetrics & Gynecology
DX: R31.29 Other microscopic hematuria (principal)
CPT/HCPCS: 99213

== ENCOUNTER → 2025-08-24 10:33 | Outpatient (BNVA) | payer MEDICAID, SELFPAY | PROVIDERS: PCP Internal Medicine; Visit Provider Obstetrics & Gynecology | DX: Z03.89 Encounter for observation for other suspected diseases and conditions ruled out (principal) | CPT/HCPCS: 81002; 99212 ==

== ENCOUNTER 2025-09-14 06:33 | Outpatient (REF) | payer MEDICAID, SELFPAY ==
--- OUTSIDE RECORDS SUMMARY | 2025-09-09 09:00 | XMS_ITS | Encounter Summary ---
Author Organization [employer] Address [address] [facility] [address] [place] [address] Care Team Providers Care Metal Polisher Name Role Phone Teena Castillo MD Primary Care Provide r Reason for Referral * Consultation (Routine) - Authorized Specialty Diagnoses / Procedures Referred By Contac t Referred To Contact Physical Therapy Diagnoses Vertigo Teena Castillo MD [address] [place] [phone] Phone: tel: fax: [facility] Physical Therapy [address] [place] [address] Phone: tel: fax: Referral ID Status Reason Start Date Expiration Date Visits Requested Visits Authorized [id number] Authorized Specialty Services Required 09/09/2026 20 20 Encounter Details Date Type Department Care Team (Late st Contact Info) Description 09/09/2025 9:00 AM EST Telemedicine [facility] MEDICINE [address] [place] [address] [phone] Teena Castillo MD [address] [place] [address] [phone] Glucose found in urine on examination (Primary Dx); Vertigo; Class 1 obesity; Chronic midline low back pain, unspecified whether sciatica present; Dietary counseling; Exercise counseling; Bipolar 1 disorder (CMS/HCC) ([facility]) Social History Tobacco Use Types Packs/Day Years Used Date Smoking Tobacco: Never Passive Smoke Exposure: Never Smokeless Tobacco: Never Alcohol Use Standard Drinks/Week Comments Never 0 (1 standard drink = 0.6 oz pur e alcohol) Depression Answer Date Recorded Patient Health Questionnaire-9 Score 18 09/09/2025 Patient Health Questionnaire-9 Score 18 09/09/2025 Last PHQ-9: Questionnaire Data Not on file 1 11/10/2024 Housing Stability Answer Date Recorded What is [...] Date Recorded Patient Health Questionnaire-2 Score 3 09/09/2025 Internet Access Answer Date Recorded Internet Access [...] Answer Date of Assessment Author Patient Health Questionnaire-2 Score 3 08/29 8:56 AM Kate Gamboa MA * Little interest or pleasure in doing things Answer Date of Assessment Author More than half the days 09/09/2025 8:56 AM Kate Vidal MA * Feeling down, depressed, or hopeless Answer Date of Assessment Author Several days 09/09/2025 8:56 AM Kirstin Gamboa MA * Trouble falling or staying asleep, or sleeping too much Answer Date of Assessment Author Nearly every day 09/09/2025 8:56 AM Lima Gamboa MA * Feeling tired or having little energy Answer Date of Assessment Author Nearly every day 09/09/2025 8:56 AM Jeanie Gamboa MA * Poor appetite or overeating Answer Date of Assessment Author Nearly every day 09/09/2025 8:56 AM Jeanie Gamboa MA * Feeling bad about yourself - or that you are a failure or have let yourself or your family down Answer Date of Assessment Author Not at all 09/09/2025 8:56 AM Kirstin Gamboa MA * Trouble concentrating on things, such as reading the newspaper or watching television Answer Date of Assessment Author Nearly every day 09/09/2025 8:56 AM Jeanie Gamboa MA * Moving or speaking so slowly that other people could have noticed? Or the opposite - being so fidgety or restless that you have been moving around a lot more than usual. Answer Date of Assessment Author Nearly every day 09/09/2025 8:56 AM Jeanie Gamboa MA * Thoughts that you would be better off or hurting yourself in some way Answer Date of Assessment Author Not at all 09/09/2025 8:56 AM Kirstin Gamboa MA * Patient Health Questionnaire-9 Score Answer Date of Assessment Author 18 09/09/2025 8:56 AM Kirstin Gamboa MA * Over the last 2 weeks, how often have you been bothered by any of the following problems? Question Answer Date of Assessment Author Feeling nervous, anxious, or on edge 2 08/29 8:59 AM Kate Gamboa MA Not being able to stop or co ntrol worrying 2 09/09/2025 8:59 AM Kate Gamboa MA Worrying too much about diff erent things 3 09/09/2025 8:59 AM EST Kate Mendoza MA Trouble relaxing 3 09/09/2025 8:59 AM EST Kate Pace MA Being so restless that it is hard to sit still 0 09/09/2025 8:59 AM EST Kate Mendoza MA Becoming easily annoyed or irritable 3 08/29 8:59 AM EST Kate Mendoza MA Feeling afraid as if somethi ng awful might happen 0 09/09/2025 8:59 AM EST Kate Mendoza MA LANI-7 Total Score 13 09/09/2025 8:59 AM EST Kate Mendoza MA * How difficult have these problems made it for you to do your work, take care of things at home, or get along with other people? Answer Date of Assessment Author Somewhat difficult 09/09/2025 8:56 AM EST Kate Mendoza MA documented as of this encounter Progress Notes * Teena Otoole MD - 09/09/2025 9:00 AM EST SUBJECTIVE: Dara Garcia is a 45 y.o. year old female who presents for Follow up . Polyarthralgia and Lower Back Pain - History of polyarthralgia and lower back pain - Previous blood work showed mildly elevated TERRENCE (1:80) - Referred to crew caller for evaluation - Grain Merchandising Manager attributed symptoms to fibromyalgia - Meloxicam discontinued; started on nabumetone, reports better symptom control with nabumetone Anxiety and Depression - Ongoing anxiety and depression - Followed by psychiatrist and therapist - Difficulty sleeping; psychiatrist started trazodone 50 mg at bedtime and Crestor leucine 1 mg - Now able to fall asleep easily but continues to wake up during the night Possible Diabetes - Manufacturing Test Technician noted significant glucose in urine, suggested possible diabetes - Reports excessive thirst Vertigo - Known history of vertigo - Manages symptoms with meclizine; reports worsening dizziness and increased need for meclizine - Last vestibular physical therapy was many years ago, reported significant benefit at that time Social History Social History Narrative Not on file Problem List[1] Vertigo Obstructive sleep apnea syndrome Morbid obesity (CMS/HCC) (HCC) Migraine without aura, not refractory Iron deficiency anemia Impaired glucose tolerance Hand pain Fibromyositis Essential hypertension Depressive disorder Chronic low back pain Carpal tunnel syndrome Atypical chest pain Allergic rhinitis Irregular periods Hypersomnia TERESO (obstructive sleep apnea) Memory difficulties Anxiety with depression Hypokalemia Other constipation Forgetfulness Nocturnal hypoxemia Dyspnea on exertion Melasma Arthritis Bipolar 1 disorder ([facility]/HCC) ([facility]) Class 1 obesity History of gastric restrictive surgery Migraines Chronic fatigue Class 1 obesity due to excess calories with serious comorbidity and body mass index (BMI) of 34.0 to 34.9 in adult Discoloration of skin of face Chronic midline low back pain Chronic right shoulder pain Positive TERRENCE (antinuclear antibody) Dysuria Glucose found in urine on examination Review of Systems Constitutional: Positive for fatigue. HENT: Negative. Respiratory: Negative. Musculoskeletal: Positive for arthralgias, back pain and myalgias. Neurological: Positive for dizziness. Follow Up: No follow-ups on file. Medications Ordered Prior to Encounter[2] Problem List Items Addressed This Visit Glucose found in urine on examination - Primary Relevant Medications Tirzepatide-Weight Management (Zepbound) 15 MG/0.5ML solution auto-injector Other Relevant Orders Comprehensive Metabolic Panel Hemoglobin A1c Lipid Panel, Standard Vitamin D, 25-Hydroxy, Total, Immunoassay TSH with Reflex to Free T4 Albumin, Random Urine W/Creatinine Vertigo Relevant Medications meclizine (Antivert) 25 MG tablet Other Relevant Orders Referral to Physical Therapy Class 1 obesity Relevant Medications Tirzepatide-Weight Management (Zepbound) 15 MG/0.5ML solution auto-injector Chronic midline low back pain Relevant Medications nabumetone (Relafen) 750 MG tablet Bipolar 1 disorder ([facility]) ([facility]) Continue to follow with psychiatrist and therapist Other Visit Diagnoses Dietary counseling Relevant Medications Tirzepatide-Weight Management (Zepbound) 15 MG/0.5ML solution auto-injector Exercise counseling Relevant Medications Tirzepatide-Weight Management (Zepbound) 15 MG/0.5ML solution auto-injector Glucose found in urine on examination: - Glycosuria with excessive thirst, possible diabetes as suggested by electrical parts reconditioner. - Order blood glucose testing, including hemoglobin A1c. Will contact with next steps after resultsare available. Vertigo: - Vertigo with worsening dizziness, increased need for meclizine. Previous vestibular therapy was beneficial. - Recommend resuming vestibular therapy. Chronic midline low back pain, unspecified whether sciatica present: - Polyarthralgia and lower back pain most likely related to fibromyalgia per rheumatology evaluation. [1] Patient Active Problem List Diagnosis Vertigo Obstructive sleep apnea syndrome Morbid obesity ([facility]) ([facility]) Migraine without aura, not refractory Iron deficiency anemia Impaired glucose tolerance Hand pain Fibromyositis Essential hypertension Depressive disorder Chronic low back pain Carpal tunnel syndrome Atypical chest pain Allergic rhinitis Irregular periods Hypersomnia TERESO (obstructive sleep apnea) Memory difficulties Anxiety with depression Hypokalemia Other constipation Forgetfulness Nocturnal hypoxemia Dyspnea on exertion Melasma Arthritis Bipolar 1 disorder ([facility]) ([facility]) Class 1 obesity History of gastric restrictive surgery Migraines Chronic fatigue Class 1 obesity due to excess calories with serious comorbidity and body mass index (BMI) of 34.0 to 34.9 in adult Discoloration of skin of face Chronic midline low back pain Chronic right shoulder pain Positive TERRENCE (antinuclear antibody) Dysuria Glucose found in urine on examination [2] Current Outpatient Medications on File Prior to Visit Medication Sig Dispense Refill acetaminophen (Tylenol) 500 MG tablet Take 1 tablet (500 mg) by mouth every 6 (six) hours if neededfor mild pain for up to 20 doses. 20 tablet 0 amLODIPine (Norvasc) 10 MG tablet TAKE 1 TABLET BY MOUTH EVERY DAY 90 tablet 1 ascorbic acid (Vitamin C) 500 MG tablet take one daily B Complex Vitamins (vitamin B complex) tablet TAKE 1 TABLET BY MOUTH EVERY DAY 90 tablet 1 baclofen (Lioresal) 10 MG tablet Take 1 tablet (10 mg) by mouth 3 times daily. 90 tablet 0 busPIRone (Buspar) 15 MG tablet TAKE 1 TABLET BY MOUTH THREE TIMES DAILY FOR ANXIETY chlorhexidine (Peridex) 0.12 % solution Swish 15 mL morning and night for 1 minute. Spit, do not swallow. Do not eat or drink for 30 minutes following use. 473 mL 0 chlorhexidine (Peridex) 0.12 % solution Swish 15 mL morning and night for 1 minute. Spit, do not swallow. Do not eat or drink for 30 minutes following use. 473 mL 0 D3-1000 25 MCG (1000 UT) capsule TAKE 1 CAPSULE BY MOUTH DAILY 90 capsule 1 DULoxetine (Cymbalta) [address] capsule Take 60 mg by mouth Once per day. Ferrous Sulfate (iron) 325 (65 Fe) MG tablet TAKE 1 TABLET BY MOUTH EVERY DAY 90 tablet 1 hydroquinone 4 % cream APPLY TOPICALLY TO THE AFFECTED AREA(S) TWICE DAILY DIRECTED 28.35 g 0 ibuprofen 600 MG tablet Take 1 tablet (600 mg) by mouth every 6 (six) hours if needed for mild painfor up to 20 doses. 20 tablet 0 Jardiance 10 MG Take 1 tablet by mouth Once per day. losartan (Cozaar) 100 MG tablet TAKE 1 TABLET BY MOUTH EVERY DAY 90 tablet 1 Magnesium Oxide -Mg Supplement 400 MG capsule TAKE 1 CAPSULE BY MOUTH ONCE DAILY 30 capsule 1 metoprolol succinate XL (Toprol-XL) 50 MG 24 hr tablet TAKE 1 TABLET BY MOUTH EVERY MORNING DO NOT BREAK, CRUSH, DISSOLVE OR CHEW 90 tablet 1 Multiple Vitamin (Multivitamin) tablet TAKE 1 TABLET BY MOUTH EVERY DAY WITH FOOD 90 tablet 1 prazosin (Minipress) 2 MG capsule take 1 capsule by oral route every bedtime 90 capsule 0 Vitamins-Lipotropics (B Complex Formula 1, Lipotrop,) tablet TAKE 1 TABLET BY MOUTH EVERY DAY 90 tablet 1 [DISCONTINUED] meclizine (Antivert) 25 MG tablet TAKE 2 TABLETS BY MOUTH TWICE DAILY IN THE MORNINGAND AT BEDTIME NEEDED FOR DIZZINESS 30 tablet 1 [DISCONTINUED] Tirzepatide-Weight Management (Zepbound) 15 MG/0.5ML solution auto-injector Inject 0.5 mL (15 mg) under the skin 1 (one) time per week. 2 mL 3 Tirzepatide-Weight Management (Zepbound) 10 MG/0.5ML solution auto-injector Inject 0.5 mL (10 mg) under the skin 1 (one) time per week. INJECT ONE PEN (=10 MG) SUBCUTANEOUSLY ONCE A WEEK 2 mL 0 [DISCONTINUED] acetaminophen (Tylenol) 500 MG tablet Take 1 tablet (500 mg) by mouth every 6 (six) hours if needed for mild pain for up to 20 doses. 20 tablet 0 [DISCONTINUED] acetaminophen (Tylenol) 500 MG tablet Take 1 tablet (500 mg) by mouth every 6 (six) hours if needed for mild pain for up to 20 doses. 20 tablet 0 [DISCONTINUED] hydroCHLOROthiazide 12.5 MG tablet Take 1 tablet (12.5 mg) by mouth Once per day. 90tablet 3 [DISCONTINUED] meloxicam (Mobic) 15 MG tablet Take 1 tablet (15 mg) by mouth Once per day. 30 tablet 1 [DISCONTINUED] Zepbound 12.5 MG/0.5ML solution auto-injector INJECT ONE PEN (=12.5MG) SUBCUTANEOUSLY ONCE A WEEK DIRECTED 2 mL 1 No current facility-administered medications on file prior to visit. documented in this encounter Miscellaneous Notes * Assessment & Plan Note - Teena Otoole MD - 09/09/2025 9:38 AM EST Associated Problem(s): Bipolar 1 disorder (CMS/HCC) ([facility]) Continue to follow with psychiatrist and therapist documented in this encounter Plan of Treatment Scheduled Orders Name Type Priority Associated Diagnoses Orde r Schedule Comprehensive Metabolic Panel Lab Routine Glucose found in urine on examination Expected: 09/09/2025 (Approximate), Expires: 09/09/2026 Hemoglobin A1c Lab Routine Glucose found in urine on examination Expected: 09/09/2025 (Approximate), Expires: 09/09/2026 Lipid Panel, Standard Lab Routine Glucose found in urine on examination Expected: 09/09/2025 (Approximate), Expires: 09/09/2026 Vitamin D, 25-Hydroxy, Total, Immunoassay Lab Routine Glucose found in urine on examination Expected: 09/09/2025 (Approximate), Expires: 09/09/2026 TSH with Reflex to Free T4 Lab Routine Glucose found in urine on examination Expected: 09/09/2025 (Approximate), Expires: 09/09/2026 Albumin, Random Urine W/Creatinine Lab Routine Glucose found in urine on examination Expected: 09/09/2025 (Approximate), Expires: 09/09/2026 Scheduled Referrals Name Type Priority Associated Diagnoses Orde r Schedule Referral to Physical Therapy Outpatient Referral Routine Vertigo Expected: 09/09/2025 (Approximate), Expires: 09/09/2026 documented as of this encounter Visit Diagnoses Diagnosis Glucose found in urine on examination- Primary Glycosuria Vertigo Dizziness and giddiness Class 1 obesity Chronic midline low back pain, unspecified whether sciatica present Dietary counseling Dietary surveillance and counseling Exercise counseling Bipolar 1 disorder (CMS/HCC) (HCC) documented in this encounter Additional Health Concerns Assessment Noted Time PHQ-9 Depression Total Score: 18 025 8:56 AM EST documented as of this encounter Care Teams Metal Polisher Relationship Specialty Start Date End Date Teena Castillo MD [address] [place] [address] PCP - General Family Medicine 03/18/19 documented as of this encounter
--- OUTSIDE RECORDS SUMMARY | 2025-09-14 06:37 | XMS_ITS | Encounter Summary ---
Author Organization [employer] Address [address] [place] [address] Care Team Providers Care Tetryl Screen Operator Name Role Phone Teena Castillo MD Primary Care Provide r Reason for Visit * Reason Comments Med Refill Encounter Details Date Type Department Care Team ([facility] st Contact Info) Description 08/11/2023 Refill [facility] MED & PEDS [address] [place], [place] [phone] Nahid Mak MD [address] [place] [address] Essential hypertension Social History Tobacco Use Types [...] documented as of this encounter Care Teams Tetryl Screen Operator Relationship Specialty Start Date End Date Teena Castillo MD [address] [place] [phone] PCP - General Family Medicine 03/18/19 documented as of this encounter
--- OUTSIDE RECORDS SUMMARY | 2025-09-14 06:37 | XMS_ITS | Encounter Summary ---
Author Organization [employer] Address [address] [facility] [address] [place] [address] Care Team Providers Care Dairy Husbandry Teacher Name Role Phone Teena Castillo MD Primary Care Provide r Reason for Visit * Reason Comments Med Refill Encounter Details Date Type Department Care Team ([facility] st Contact Info) Description 09/28/2024 Refill [facility] MEDICINE [address] [place], [place] [phone] Teena Castillo MD [address] [place] [address] Class 2 severe obesity due to excess [...] documented as of this encounter Care Teams Dairy Husbandry Teacher Relationship Specialty Start Date End Date Teena Castillo MD [address] [place] [address] PCP - General Family Medicine 03/18/19 documented as of this encounter
--- OUTSIDE RECORDS SUMMARY | 2025-09-14 06:37 | XMS_ITS | Clinical Summary ---
Author Organization [facility] ity Address [address] [place] [address] Care Team Providers Care Automatic Punch Press Operator Name Role Phone Teena Castillo [...] on file Sexual Orientation Not on file Last Filed Vital Signs Vital Sign Reading [...] series) 2008 Depression Screening 09/29/2024 COVID-19 Vaccine (1 - 2024-2 6 season) 2025 Influenza Vaccine [...] age to complete this topic Care Teams Automatic Punch Press Operator Relationship Specialty Start Date End Date Teena Castillo MD [address] [place] [phone] PCP - General Internal Medicine 12/31/21
--- OUTSIDE RECORDS SUMMARY | 2025-09-14 06:37 | XMS_ITS | Encounter Summary ---
Author Organization [employer] Address [address] [place] [address] Care Team Providers Care Ear Nose Throat Physician Name Role Phone Teena Castillo MD Primary Care Provide r Reason for Visit * Reason Comments Med Refill Encounter Details Date Type Department Care Team ([facility] st Contact Info) Description 02/17/2025 Refill [facility] MEDICINE [address] [place], [place] [phone] Teena Castillo MD [address] [place] [address] Class 2 severe obesity due to excess [...] documented as of this encounter Care Teams Ear Nose Throat Physician Relationship Specialty Start Date End Date Teena Castillo MD [address] [place] [address] PCP - General Family Medicine 03/18/19 documented as of this encounter
--- OUTSIDE RECORDS SUMMARY | 2025-09-14 06:37 | XMS_ITS | Encounter Summary ---
Author Organization [employer] Address [address] [place] [address] Care Team Providers Care Rotary Cutter Feeder Name Role Phone Teena Castillo MD Primary Care Provide r Reason for Visit * Reason Comments Med Refill Encounter Details Date Type Department Care Team ([facility] st Contact Info) Description 07/12/2025 Refill [facility] MED & PEDS [address] [place] [address] Teena Castillo MD [address] [place] [address] Dizziness Social History Tobacco Use Types Packs/Day [...] documented as of this encounter Care Teams Rotary Cutter Feeder Relationship Specialty Start Date End Date Teena Castillo MD [address] [place] [phone] PCP - General Family Medicine 03/18/19 documented as of this encounter
--- OUTSIDE RECORDS SUMMARY | 2025-09-14 06:37 | XMS_ITS | Encounter Summary ---
Author Organization [employer] Address [address] [place] [address] Care Team Providers Care Oim Consultant Name Role Phone Teena Castillo MD Primary Care Provide r Reason for Visit * Reason Comments Med Refill Encounter Details Date Type Department Care Team ([facility] st Contact Info) Description 06/06/2025 Refill [facility] MEDICINE [address] [place], [place] [phone] Teena Castillo MD [address] [place] [address] Class 1 obesity due to excess calories [...] documented as of this encounter Care Teams Oim Consultant Relationship Specialty Start Date End Date Teena Castillo MD [address] [place] [address] PCP - General Family Medicine 03/18/19 documented as of this encounter
--- OUTSIDE RECORDS SUMMARY | 2025-09-14 06:37 | XMS_ITS | Encounter Summary ---
Author Organization [employer] Address [address] [place] [address] Care Team Providers Care Silk Winding Machine Operator Name Role Phone Teena Castillo MD Primary Care Provide r Encounter Details Date Type Department Care Team (Latest Contact Info) Description 09/09/2025 Travel Social History Tobacco Use Types Packs/Day [...] 8:56 AM Jeanie Gamboa MA * Feeling tired or having [...] Author Nearly every day 09/09/2025 8:56 AM EST Jeanie Mendoza MA * Moving or speaking so slowly [...] diff erent things 3 09/09/2025 8:59 AM Kate Gamboa MA Trouble relaxing 3 09/09/2025 8:59 AM EST Watson zainabKate MA Being so restless that it is hard to sit still 0 09/09/2025 8:59 AM Kate Gamboa MA Becoming easily annoyed or irritable 3 08/29 8:59 AM Kate Gamboa MA Feeling afraid as if somethi ng awful might happen 0 09/09/2025 8:59 AM Kate Gamboa MA LANI-7 Total Score 13 09/09/2025 8:59 AM Kate Gamboa MA * How difficult have these problems made it for you to do your work, take care of things at home, or get along with other people? Answer Date of Assessment Author Somewhat difficult 09/09/2025 8:56 AM Kate Gamboa MA documented as of this encounter Plan of Treatment Not on file documented as of this encounter Visit Diagnoses Not on filedocumented in this encounter Additional Health Concerns Assessment Noted Time PHQ-9 Depression Total Score: 18 025 8:56 AM EST documented as of this encounter Care Teams Silk Winding Machine Operator Relationship Specialty Start Date End Date Teena Castillo MD [address] [facility] [place] [address] PCP - General Family Medicine 03/18/19 documented as of this encounter
--- OUTSIDE RECORDS SUMMARY | 2025-09-14 06:37 | XMS_ITS | Encounter Summary ---
Author Organization [employer] Address [address] [place] [address] Care Team Providers Care Terminal Clerk Name Role Phone Teena Castillo MD Primary Care Provide r Reason for Visit * Reason Onset Date Comments Med Refill 08/09/2025 Encounter Details Date Type Department Care Team ([facility] st Contact Info) Description 08/09/2025 Telephone [facility] [address] [place] [address] Teena Castillo MD [address] [place] [address] Med Refill Social History Tobacco Use Types Packs/Day Years [...] enough money to get more: Often true 07/ Transportation Answer Date Recorded In the past [...] encounter Miscellaneous Notes * Telephone Encounter - Melly Mccloud LPN - 08/09/2025 9:32 AM EST Please review request medication was discontinued. * Telephone Encounter - [facility] - 08/09/2025 9:24 AM EST TC from pt requesting medication refill. Medications needing refill : meclizine (Antivert) 25 MG tablet To be sent to: [facility] - [place], [place] - [address] [facility] documented in this encounter Plan of Treatment Not on file documented as of this encounter Visit Diagnoses Not on filedocumented in this encounter Additional Health Concerns Assessment Noted Time PHQ-9 Depression Total Score: 10 025 11:28 AM EDT documented as of this encounter Care Teams Terminal Clerk Relationship Specialty Start Date End Date Teena Castillo MD [address] [facility] [place] [address] PCP - General Family Medicine 03/18/19 documented as of this encounter
--- OUTSIDE RECORDS SUMMARY | 2025-09-14 06:37 | XMS_ITS | Encounter Summary ---
Author Organization [employer] Address [address] [place] [address] Care Team Providers Care Right Of Way Maintenance Supervisor Name Role Phone Teena Castillo MD Primary Care Provide r Reason for Visit * Reason Onset Date Comments Med Refill 06/27/2025 Encounter Details Date Type Department Care Team (Late st Contact Info) Description 06/27/2025 Refill [facility] [address] [place] [address] Melly Neff, [address] [place] [address] Class 1 obesity due to excess calories [...] since 05/17. Any questions contact pt at [phone] documented in this encounter Plan of Treatment [...] documented as of this encounter Care Teams Right Of Way Maintenance Supervisor Relationship Specialty Start Date End Date Teena Castillo MD [address] [place] [id number] PCP - General Family Medicine 03/18/19 documented as of this encounter
--- OUTSIDE RECORDS SUMMARY | 2025-09-14 06:37 | XMS_ITS | Clinical Summary ---
Author Organization [employer] Address [address] [facility] [address] [place] [address] Care Team Providers Care Commercial Diver Name Role Phone Teena Castillo MD Primary [...] EVERY DAY 90 tablet 1 025 Active chlorhexidine (Peridex) 0.12 % solution Swish 15 mL morning and night for 1 minute. Spit, do not swallow. Do not eat or drink for 30 minutes following use. 473 mL 025 Active chlorhexidine (Peridex) 0.12 % solution [...] to 20 doses. 20 tablet 025 Active Ferrous Sulfate (iron) 325 (65 Fe) MG tabletIndicatio ns:Vitamin deficiency TAKE 1 TABLET BY MOUTH EVERY DAY 90 tablet 1 08/10/20 25 1:02 PM EST 025 Active Jardiance 10 MG Take 1 tablet by mouth Once per day. 025 Active ascorbic acid (Vitamin C) 500 MG tablet take one daily 021 Active busPIRone (Buspar) 15 MG tablet TAKE 1 TABLET BY MOUTH THREE TIMES DAILY FOR ANXIETY 025 Active DULoxetine (Cymbalta) [address] capsule Take 60 mg by mouth Once per day. Active losartan (Cozaar) 100 MG tabletIndicatio ns:Primary hypertension TAKE 1 TABLET BY MOUTH EVERY DAY 90 tablet 1 09/06/20 25 8:28 AM EST 025 Active B Complex Vitamins (vitamin B complex) tabletIndicatio ns:Vitamin deficiency TAKE 1 TABLET BY MOUTH EVERY DAY 90 tablet 1 025 Active amLODIPine (Norvasc) 10 MG tabletIndicatio ns:Primary hypertension TAKE 1 TABLET BY MOUTH EVERY DAY 90 tablet 1 025 Active baclofen (Lioresal) 10 MG [...] MOUTH DAILY 90 capsule 1 025 Active metoprolol succinate XL (Toprol-XL) 50 MG 24 hr tablet TAKE 1 TABLET BY MOUTH EVERY MORNING DO NOT BREAK, CRUSH, DISSOLVE OR CHEW 90 tablet 1 09/01/20 25 1:42 PM EST 025 Active meclizine (Antivert) 25 MG tabletIndicatio ns:Vertigo TAKE 2 TABLETS BY MOUTH TWICE DAILY IN THE MORNING AND AT BEDTIME NEEDED FOR DIZZINESS 40 tablet 2 Active Tirzepatide-Jem ght Management (Zepbound) 15 MG/0.5ML solution auto-injectorIn dications:Class 1 obesity Inject 0.5 mL (15 mg) under the skin 1 (one) time per week. 2 mL 3 Active nabumetone (Relafen) 750 MG tabletIndicatio ns:Chronic midline low back pain, unspecified whether sciatica present Take 1 tablet (750 mg) by mouth 2 times daily. 60 tablet 2 09/09/20 25 1:53 PM EST 2025 Active acetaminophen (Tylenol) 500 MG tablet Take 1 tablet (500 mg) by mouth every 6 (six) hours if needed for mild pain for up to 20 doses. 20 tablet 025 2024 Discontinued Tirzepatide-Jem ght Management (Zepbound) 10 MG/0.5ML solution auto-injectorIn dications:Class 2 severe obesity due to excess calories with serious comorbidity and body mass index (BMI) of 37.0 to 37.9 in adult Inject 0.5 mL (10 mg) under the skin 1 (one) time per week. INJECT ONE PEN (=10 MG) SUBCUTANEOUSLY ONCE A WEEK 2 mL 025 2024 Discontinued acetaminophen (Tylenol) 500 MG tablet Take 1 tablet (500 mg) by mouth every 6 (six) hours if needed for mild pain for up to 20 doses. 20 tablet 025 2024 Discontinued metoprolol succinate XL (Toprol-XL) 50 MG 24 hr tablet TAKE 1 TABLET BY MOUTH EVERY MORNING, DO NOT BREAK, CRUSH, DISSOLVE OR CHEW 90 tablet 1 025 2024 Discontinued hydroCHLOROthia zide 12.5 MG tabletIndicatio ns:Essential hypertension Take 1 tablet (12.5 mg) by mouth Once per day. 90 tablet 3 025 2024 Discontinued Zepbound 12.5 MG/0.5ML solution auto-injectorIn dications:Class 1 obesity due to excess calories with serious comorbidity and body mass index (BMI) of 34.0 to 34.9 in adult INJECT ONE PEN (=12.5MG) SUBCUTANEOUSLY ONCE A WEEK DIRECTED 2 mL 1 025 2024 Discontinued meloxicam (Mobic) 15 MG tabletIndicatio ns:Chronic midline low back pain, unspecified whether sciatica present Take 1 tablet (15 mg) by mouth Once per day. 30 tablet 1 025 2024 Discontinued Tirzepatide-Jem ght Management (Zepbound) 15 MG/0.5ML solution auto-injectorIn dications:Class 1 obesity Inject 0.5 mL (15 mg) under the skin 1 (one) time per week. 2 mL 3 08/24/20 25 12:25 PM EST 025 2024 Discontinued(R eorder (will not trigger notification to Pharmacy)) meclizine (Antivert) 25 MG tabletIndicatio ns:Vertigo Take 2 tablets (50 mg) by mouth if needed in the morning and at bedtime for dizziness. 30 tablet 1 08/24/20 25 12:25 PM EST 2024 Discontinued meclizine (Antivert) 25 MG tabletIndicatio ns:Vertigo TAKE 2 TABLETS BY MOUTH TWICE DAILY IN THE MORNING AND AT BEDTIME NEEDED FOR DIZZINESS 30 tablet 1 09/01/20 25 1:42 PM EST 2024 Discontinued(R eorder (will not trigger notification to Pharmacy)) Active Problems Problem Noted Date Diagnosed Date Glucose found in urine on examination 09/09/2025 Chronic midline low back pain 05/26/2025 Assessment [...] mg weekly Arthritis 01/20/2025 Bipolar 1 disorder ([facility]) 01/20/2025 Assessment & Plan (09/09/2025 9:38 AM EST): Continue to follow with psychiatrist and therapist Class 1 obesity 01/20/2025 Assessment & Plan [...] pressure and mood Encounter for preventative a [facility] care examination 04/04/2023 02/17/2025 Assessment & Plan (04/04/2023 3:04 PM EDT): Please see HPI Opioid abuse 12/08/2017 02/17/2025 Encounters Date Type Department Care Team Description 09/09/2025 9:00 AM EST Telemedicine [facility] [address] [place] [address] Teena Castillo MD Glucose found in urine on examination (Primary Dx); Vertigo; Class 1 obesity; Chronic midline low back pain, unspecified whether sciatica present; Dietary counseling; Exercise counseling; Bipolar 1 disorder (CMS/HCC) (HCC) 09/09/2025 Travel 09/08/2025 Telephone [facility] [address] [place] [address] Teena Castillo MD chart prep 09/08/2025 Refill [facility] [address] [place] [address] Teena Castillo MD Vertigo 08/31/2025 Refill [facility] [address] [place] [address] Teena Castillo MD Vertigo 08/30/2025 Refill [facility] [address] [place] [address] Teena Castillo MD 08/24/2025 Refill [facility] [address] [place] [address] Teena Castillo MD Vertigo 08/11/2025 Refill [facility] [address] [place] [address] Teena Castillo MD Vertigo 08/09/2025 Orders Only [facility] [address] [place] [phone] Teena Castillo MD Vertigo (Primary Dx) 08/09/2025 Telephone [facility] [address] [place] [phone] Teena Castillo MD Med Refill 08/02/2025 Orders Only GENERIC EXTERNAL DATA DEPARTMENT Provider, Generic External Data 08/01/2025 Travel 07/31/2025 Refill [facility] [address] [place] [address] Teena Castillo MD Vitamin deficiency 07/28/2025 Patient Outreach [facility] [address] [place] [phone] Teena Castillo MD Care Management (C3- f/u call) 07/22/2025 Refill [facility] [address] [place] [phone] Sean Lyles MD Melasma 07/16/2025 Refill [facility] [address] [place] [address] Teena Castillo MD Migraine without aura, not refractory 07/15/2025 Patient Outreach [facility] [address] [place] [phone] Teena Castillo MD Care Management (C3CM- f/u call) 07/12/2025 Refill [facility] [address] [place] [address] Teena Castillo MD Dizziness 07/04/2025 Refill [facility] [address] [place] [phone] Teena Castillo MD Vitamin deficiency 06/29/2025 Patient Outreach [facility] [address] [place] [phone] Teena Castillo MD Care Management (C3- f/u call) 06/28/2025 Patient Outreach [facility] [address] [place] [phone] Teena Castillo MD 06/27/2025 Refill [facility] [address] [place] [phone] Melly Neff DO Class 1 obesity due to excess calories with serious comorbidity and body mass index (BMI) of 34.0 to 34.9 in adult 06/24/2025 Refill [facility] [address] [place] [address] Teena Castillo MD 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 Orders Only GENERIC EXTERNAL DATA DEPARTMENT Provider, Generic External Data 06/15/2025 Patient Outreach [address] [address] Teena Castillo MD Care Coordination ([facility] f/u) 06/15/2025 Patient Outreach [facility] [address] [place] [phone] Teena Castillo MD Care Management (C3- f/u call) from Last 3 Months Immunizations Immunization Administration [...] Tdap) 08/14/2021 08/14/2011 COVID-19 Vaccine (3 - 2024- season) 2025 04/12/2021, 03/22/2021 Influenza Vaccine (#1) 2025 9, 07/07/2014, 10/26/2013, Additional history exists Mammogram 09/01/2025 09/01/2024, 07/25/2023 Dental Oral Exam 09/02/2025 03/02/2025 Dental Prophylaxis 09/07/2025 03/07/2025 Disability Screening 02/17/2026 02/17/2025 Dental X-Ray: Bitewings 03/03/2026 03/02/2025, 01/20 Depression Monitoring 03/10/2026 09/09/2025, 025 SDOH Screening 04/21/2026 04/21/2025 Alcohol/Substance Use Screening 05/26/2026 05/26/2025 Tobacco Screening 09/09/2026 09/09/2025 Dental X-Ray: Full Mouth 03/03/2028 03/02/2025 Lipid Panel 12/22/2029 12/22/2024, 0504/2024, 06/21/2023 Zoster [...] Procedure Name Priority Date/Time Associated Diagnosis Comments HERPES SIMPLEX VIRUS CULTURE Routine 08/02/2025 1:40 PM EST CULTURE, URINE, ROUTINE Routine 08/02/2025 1:40 PM EST CHLAMYDIA/N. GONORRHOEAE RNA, TMA, UROGENITAL Routine 08/02/2025 1:40 PM EST BACTERIAL VAGINOSIS PANEL Routine 08/02/2025 1:[address] ABDOMEN PELVIS W CONTRAST Routine 06/22/2025 [...] URINE, ROUTINE Routine 06/22/2025 12:00 AM EDT PROPHYLAXIS - ADULT Routine [...] Relevant to Health Maintenance Results * (ABNORMAL) Bacterial Vaginosis (08/02/2025 1:40 PM EST) Only the most recent of2 resultswithin the time period is included. TRICHOMONAS VAGINALIS DETECTION BY PCR NOT DETECTED Not Detect [facility] BACTERIAL VAGINOSIS DETECTION BY PCR NEGATIVE Negative [facility] Comment:The BV organism targ ets of [...] of 14. CARLENE GROUP DETECTION BY PCR DETECTED(A) Not Detect [facility] Carlene glab krusei PCR NOT DETECTED Not Detect [facility] 08/02/2025 1:40 PM EST 08/02/2025 3:41 PM EST us Generic External Data Provider LAB MICROBIOLOGY - GENERAL ORDERABLES Final Result [facility] [address] [place] [phone] * Chlamydia/N. Gonorrhoeae RNA, TMA, Urogenitial (08/02/2025 1:40 PM EST) Only the most recent of2 resultswithin the time period is included. CT PCR NOT DETECTED Not Detect. [facility] Comment:A not detected test result does [...] psychologicalconsequences. NG PCR NOT DETECTED Not Detect. [facility] Comment:A not detected test result does [...] lead to adverse medical, social or psychologicalconsequences. 08/02/2025 1:40 PM EST 08/02/2025 3:41 PM EST Generic External Data Provider LAB MICROBIOLOGY - GENERAL ORDERABLES Final Result Performing Organization Address [facility] Co de Phone Number [facility] [address] [place] [phone] * Herpes Simple Virus Culture (08/02/2025 1:40 PM EST) Herpes Virus Culture SEE NOTE [facility] Comment:HERPES SIMPLEX VIRUS CULTURE Micro Number: [id number] Test Status: Final Specimen Source: Not given Specimen Quality: Adequate HSV Culture: Not IsolatedTHIS TEST WAS PERFORMED AT:[employer] [id number] MERATI,MD 08/02/2025 1:40 PM EST 08/02/2025 3:41 PM EST Generic External Data Provider LAB MICROBIOLOGY - GENERAL ORDERABLES Final Result Performing Organization Address [place] de Phone Number [facility] [address] [place] [phone] * Culture, Urine, Routine (08/02/2025 1:40 PM EST) Only the most recent of2 resultswithin the time period is included. Urine Urine specimen obtained by clean catch procedure / Unknown 08/02/2025 1:40 PM EST 08/02/2025 3:41 PM EST Comment:UACC Narrative [facility] - 08/04/2025 10:56 AM EST Urine Culture No growth. Specimen Source: Urine clean catch Generic External Data Provider LAB MICROBIOLOGY - GENERAL ORDERABLES Final Result Performing Organization Address [facility] Co de Phone Number [facility] [address] [place] [phone] * CT Abdomen Pelvis w/ Contrast (06/22/2025 9:00 AM EDT) Anatomical Region Laterality Modality Body, Pelvis, Abdomen Computed T omography 06/22/2025 9:00 AM EDT Narrative 06/22/2025 9:48 AM EDT [address] [address] [address] Scan Report Signed Patient: Dara Garcia MR#: [id number] 46 : 1980 Acct:[id number] Age/Sex: 45 / F ADM Date: 06/22/25 Loc: HO.ED Attending Dr: Ordering Physician: Meseret Del Cid Date of Service: 06/22/25 Procedure(s): CT abdomen pelvis w IV con Accession Number(s): [id number] cc: Teena Castillo MD; Meseret Del Cid Report Number: [id number]: Total DLP = 0.00 mGy-cm Reason for [...] signed by Ray Tamez MD in OV> 06/22/25 0945 DD/ 0900 TD/TT: 06/22/25 0913 Coin Box Inspector: Procedure Note Donotuseinterpreter, Image - 06/22/[address] [address] [address] Scan Report Signed Patient: Chuck GarciaR#: [id number] 46 : 1980Acct:[id number] Age/Sex: 45 / FADM Date: 06/22/25 Loc: .ED Attending Dr: Ordering Physician: Meseret Del Cid Date of Service: 06/22/25 Procedure(s): CT abdomen pelvis w IV con Accession Number(s): [id number] cc: Teena Castillo MD; Meseret Del Cid Report Number: [id number]: Total DLP = 0.00 mGy-cm Reason for [...] signed by Ray Tamez MD in OV> 06/22/25944 DD/ 9 TD/TT: 06/22/25912 Coin Box Inspector: [facility] External Provider IMG CT PROCEDURES Final Result * (ABNORMAL) Urinalysis, Complete, with Reflex to Culture (06/22/2025 7:56 AM EDT) Color Urine Yellow [facility] Appearance Urine Cloudy [facility] PH 6.0 5.0 - 9.0 [facility] Glucose Urine UA >=1000(A) Negative mg/dL [facility] Urine Blood Moderate (2+)(A) Negative [facility] Specific [place] - Urine >=1.030(H) 1.005 - 1.025 [facility] Urine Protein 30 (1+)(A) Neg-Trace mg/dL [facility] Urine Ketones Trace Negative mg/dL [facility] Nitrite Urine Positive(A) Negative [facility] Leukocyte Esterase Urine Moderate (2+)(A) Negative [facility] RBC Urine >20(A) 0 - 2 /HPF [facility] Urine WBC >50(A) 0 - 5 /HPF [facility] Urine Squamous Epithelial Cell 0-2 0 - 2 /HPF [facility] Urine Bacteria 4+ None Seen [facility] Hyaline Casts, Urine 0-2 0 - 2 /LPF [facility] 06/22/2025 7:56 AM EDT 06/22/2025 8:00 AM EDT Narrative [facility] - 06/22/2025 8:10 AM EDT Urine, Clean Catch us Generic External Data Provider LAB URINE ORDERAB LES Final Result [facility] [address] [place] [phone] * (ABNORMAL) CBC auto differential (06/22/2025 7:44 AM EDT) White Blood Count 8.9 4.8 - 10.8 X10*3/uL [facility] Red Blood Count 5.28 4.20 - 5.50 X10*6/uL [facility] Hemoglobin 14.2 12.0 - 16.0 g/dl [facility] Hematocrit 42.6 37.0 - 47.0 % [facility] Mean Corpuscular Volume 80.7 80.0 - 98.0 fL [facility] Mean Corpuscular Hemoglobin 26.9(L) 27.0 - 33.0 pg [facility] Mean Corpuscular HGB Conc 33.3 31.0 - 35.0 g/dl [facility] Red Cell Distribution Width 14.3 11.0 - 16.0 % [facility] Platelet Count 256 160 - 400 X10*3/uL [facility] Mean Platelet Volume 9.7 9.4 - 12.3 fL [facility] Neutrophils Percent Auto 78.0(H) 45 - 73 % [facility] Imm Gran Pct Auto 0.7(H) 0.0 - 0.4 % [facility] Lymphocytes Percent Auto 11.0(L) 20 - 40 % [facility] Monocytes Percent Auto 7.8 2 - 11 % [facility] Eosinophils Percent Auto 1.8 0 - 4 % [facility] Basophils Percent Auto 0.7 0 - 2 % [facility] NRBC Pct Auto 0.0 0.0 - 0.2 /100WBC [facility] Neutrophils Absolute Auto 6.9 2.0 - 8.3 x10*3/uL [facility] Imm Gran Abs Auto 0.06(H) 0.00 - 0.03 X10*3/uL [facility] Lymphocytes Absolute Auto 1.0(L) 1.2 - 4.9 X10*3/uL [facility] Monocytes Absolute Auto 0.7 0.1 - 1.2 X10*3/uL [facility] Eosinophils Absolute Auto 0.2 0.0 - 0.4 X10*3/uL [facility] Basophils Absolute Auto 0.1 0.0 - 0.2 X10*3/uL [facility] NRBC Abs Auto 0.000 0.0 - 0.012 X10*3/uL [facility] 06/22/2025 7:44 AM EDT 06/22/2025 7:50 AM EDT us Generic External Data Provider LAB BLOOD ORDERAB LES Final Result [facility] [address] [place] [phone] * (ABNORMAL) Comprehensive Metabolic Panel (06/22/2025 7:44 AM EDT) Sodium 141 135 - 145 mmol/L [facility] Potassium 3.8 3.3 - 5.1 mmol/L [facility] Comment:Slight Hemolysis.Int erpret result with caution. Chloride 111(H) 96 - 108 mmol/L [facility] Carbon Dioxide 22 22 - 29 mmol/L [facility] Anion Gap 12 12 - 20 [facility] Urea Nitrogen (BUN) 11 9 - 16 mg/dL [facility] Creatinine, Serum 0.95 0.5 - 1.4 mg/dL [facility] Creatinine Clr Calc Pharmacy 79.1 [facility] Comment:Provided height and weight: 162.56 cm,83.8 kg.eGFR (calculated from the MDRD study equation) and eCrCl(calculated from the Cockcroft-Gault equation) are based ondifferent parameters and may not yield comparable results.If eCrCl result is absurd, please check patient'sheight/weight. Estimated Glomerular Filt Rate >60 [facility] Comment:Chronic Kidney Disea se: Estimated GFR < 60 mL/min/1.46k3Fngefa Kidney Disease: Estimated GFR < 15 mL/min/1.73m2 Glucose 110 60 - 115 mg/dL [facility] Calcium 9.1 8.4 - 10.2 mg/dL [facility] Bilirubin, Total 0.4 0.0 - 1.0 mg/dL [facility] Aspartate Amino Transferase 29 5 - 31 U/L [facility] Comment:Slight Hemolysis.Int erpret result with caution. Alanine Aminotransferase 20 0 - 31 U/L [facility] Total Protein 7.5 6.5 - 8.0 g/dL [facility] Albumin Level 3.9 3.5 - 5.0 g/dL [facility] Alkaline Phosphatase 89 39 - 117 U/L [facility] 06/22/2025 7:44 AM EDT 06/22/2025 7:50 AM EDT us Generic External Data Provider LAB BLOOD ORDERAB LES Final Result [facility] [address] [place] [phone] * Lipid Panel, Standard (12/22/2024 8:37 AM EDT) Triglycerides 61 <150 mg/dL [facility] Comment:Desirable Triglyceri de: less than 150 mg/dLBorderline High Triglyceride 150-199 mg/dLHigh Triglyceride: 200-499 mg/dLVery High Triglyceride: greater than or equal to 5OO mg/dL Cholesterol 155 <200 mg/dL [facility] Comment:Desirable Cholestero l: less than 200 mg/dLBorderline High Cholesterol: 200-239 mg/dLHigh Cholesterol: greater than 239 mg/dL LDL Cholesterol Calculated 89 <100 mg/dL [facility] Comment:Desirable LDL: less than 100 mg/dLNear Optimal/Above Optimal LDL: 110- 129 mg/dLBorderline High LDL: 130-159 mg/dLHigh LDL: 160-189 mg/dLVery High LDL: greater than or equal to 190 mg/dL HDL Cholesterol 54 >40 mg/dL [facility] Comment:Desirable HDL: great er than 40 mg/dL Note: This HDL assay may give artificially low results in patients with liver disease. Blood Venous blood specimen / Unknown 12/22/2024 8:37 AM EDT 12/22/2024 11:05 AM EDT us Teena Otoole MD LAB BLOOD ORDERABLES Final Result [facility] [address] [place] [phone] * BI Mammogram Screening Tomosynthesis Bilateral (09/01/2024 11:55 AM EST) Anatomical Region Laterality Modality Breast Bilateral Mammography 09/01/2024 11:5 5 AM EST Narrative 09/07/2024 3:10 PM EST [address] [place] [address] Mammography Report Signed Patient: Dara Garcia MR#: [id number] 46 : 1980 Acct:[id number] Age/Sex: 44 / F ADM Date: 09/01/24 Loc: HO.MAMMO Attending Dr: Teena Otoole MD Ordering Physician: Teena Castillo MD Results: 1Negative Date of Service: 09/01/24 Follow Up: 1 Year From Orig ina Mammogram Procedure(s): MM tomosynthesis screening BI Accession Number(s): [id number] cc: Teena Castillo MD EXAMINATION: MM SCREENING [...] 09/07/24 1507 DD/ 1155 TD/TT: 09/01/24 1205 Coin Box Inspector: Procedure Note Donotuseinterpreter, Image - 09/07/2024 [facility] [address] [place] [address] Mammography Report Signed Patient: Angi Garcia#: [id number] 46 : 1980Acct:[id number] Age/Sex: 44 / FADM Date: 09/01/24 Loc: HO.MAMMO Attending Dr: Teena Otoole MD Ordering Physician: Teena Castillo MDResults: 1Negative Date of Service: 09/01/24Follow Up: 1 Year From [facility] ina Mammogram Procedure(s): MM tomosynthesis screening BI Accession Number(s): [id number] cc: Teena Castillo MD EXAMINATION: MM SCREENING [...] their next mammogram. Electronically signed by: Liudmila Eirckson DO 09/07/2024 03:07 PM [facility] Dictated By: Liudmila Erickson DO Signed By: <Electronically signed by Liudmila Erickson DO in OV> 09/07/24 1507 DD/ 1155 TD/TT: 09/01/24 1205 Coin Box Inspector: Teena Otoole MD IMG BI PROCEDURES Fin al Result * Hepatitis C Antibody with Reflex to HCV, RNA, Quantitative, Real-Time PCR (02/11/2024 6:14 AM EDT) Hepatitis C Antibody Nonreactive Nonreactive [facility] Comment:Antibodies to HCV no t detected; does not exclude early acuteHCV infection. Blood Venous blood specimen / Unknown 02/11/2024 6:14 AM EDT 02/11/2024 6:14 AM EDT us Teena Otoole MD LAB BLOOD ORDERABLES Final Result [facility] [address] [place] [phone] * HPV mRNA E6/E7 w/Reflex to HPV Genotypes 16, 18/45 (05/01/2023 12:00 AM EDT) HPV nRNA E6/E7 Not Detected Not Detected [facility] Comment:Methodology: Transcr iption-Mediated AmplificationThis assay detects E6/E7 viral messenger RNA (mRNA) from 14high-risk HPV types (16,18,31,33,35,39,45,51,52,56,58,59,66,68).Cervical sources are required for HPV testing.If a vaginal source from a patient who has had atotal hysterectomy with removal of cervix wassubmitted, please contact the testing laboratoryfor alternative testing options.For additional information, please refer tohttp://education.Reclutec/faq/GTG236f0(This link if provided for information/educational purposes only.)THIS TEST WAS PERFORMED AT:[facility] [place] [id number] JUÁREZ MD HPV mRNA E6/E7 [facility] HPV 16 RNA [facility] HPV 18/45 RNA [facility] 05/01/2023 05/02/2023 10: 15 AM EDT Rachel Gaytan CNM LAB CYTOLOGY ORDERABLES F inal Result [facility] [address] [place] [phone] * Pap Smear (05/01/2023 12:00 AM EDT) 05/01/2023 05/02/2023 10: 15 AM EDT Narrative [facility] - 05/24/2023 4:11 PM EDT ----- ------- Name: Dara Garcia Age/Sex: 42/F : 1980 Unit#: [id number] Attend Dr: RACHEL GAYTAN CNM Re05/01/23 Status: DEP REF Location: [facility] Disch: ----- ------- SPEC : [id number] RECD: 05/02/23-1015 STATUS: BRIDGET GARZA NUM: [id number] SUDARSHAN: 05/01/23-[address]: RACHEL GAYTAN [facility] ENTERED: 05/05/23-1323 SP TYPE: Pap Smr OTHR DR: ORDERED: Pap Smear Interpretation Satisfactory for evaluation. Negative for intraepithelial lesion or malignancy. HPV mRNA E6/E7: NOT DETECTED This assay detects E6/E7 viral messenger RNA (mRNA) from 14 high-risk HPV types (16, 18, 31, 33, 35, 39, 45, 51, 52, 56, 58, 59, 66, 68) HPV testing performed by [facility], [place], [place]. See reference laboratory portion of the EMR for entire report. Clinical Information LMP:Unknown date Previous PAP test:Unknown date/findings Material Received ThinPrep-Cervical ----- ------- Signed (signature on file) Meseret Raygoza 05/24/23 1611 ----- ------- END OF REPORT Rachel Gaytan CN LAB CYTOLOGY ORDERABLES F inal Result [facility] [address] [place] [address] [phone] from Last 3 Months or Most Recently Relevant to Health Maintenance Insurance [facility] C3 DENTAL-[facility] MEDICAID STAND ADULT Care Teams Commercial Diver Relationship Specialty Start Date End Date Teena Castillo MD [address] [place] [phone] PCP - General Family Medicine 03/18/19
--- OUTSIDE RECORDS SUMMARY | 2025-09-14 06:37 | XMS_ITS | Encounter Summary ---
Author Organization [employer] Address [address] [place] [address] Care Team Providers Care Client Relationship Executive Name Role Phone Teena Castillo MD Primary Care Provide r Reason for Visit * Reason Comments Med Refill Encounter Details Date Type Department Care Team ([facility] st Contact Info) Description 09/08/2025 Refill [facility] [address], [place] [phone] Teena Castillo MD [address] [place] [address] Vertigo Social History Tobacco Use Types Packs/Day Years [...] [place] Trouble relaxing 3 09/09/2025 8:59 AM ANJU Chaudhari otoKate [place] Being so restless that it is [...] as of this encounter Visit Diagnoses Diagnosis Vertigo Dizziness and giddiness documented in this encounter Additional Health Concerns Assessment Noted Time PHQ-9 Depression Total Score: 10 05/26/ 025 11:28 AM EDT documented as of this encounter Care Teams Client Relationship Executive Relationship Specialty Start Date End Date Teena Castillo MD [address] [place] [phone] PCP - General Family Medicine 03/18/19 documented as of this encounter
--- OUTSIDE RECORDS SUMMARY | 2025-09-14 06:37 | XMS_ITS | Encounter Summary ---
Author Organization [employer] Address [address] [place] [address] Care Team Providers Care Africana Studies Professor Name Role Phone Teena Castillo MD Primary Care Provide r Encounter Details Date Type Department Care Team (Late st Contact Info) Description 02/06/2023 Orders Only [facility] [address] [place], [place] [phone] Melly Mccloud LPN Social History Tobacco Use [...] on filedocumented in this encounter Care Teams Africana Studies Professor Relationship Specialty Start Date End Date Teena Castillo MD [address] [place] [id number] PCP - General Family Medicine 03/18/19 documented as of this encounter
--- OUTSIDE RECORDS SUMMARY | 2025-09-14 06:37 | XMS_ITS | Encounter Summary ---
Author Organization [employer] Address [address] [place] [address] Care Team Providers Care Journeyman Mechanic Name Role Phone Teena Castillo MD Primary Care Provide r Reason for Visit * Reason Comments Med Refill Encounter Details Date Type Department Care Team ([facility] st Contact Info) Description 08/24/2025 Refill [facility] MED[facility] [address] [place], [place] [phone] Teena Castillo MD [address] [place] [address] Vertigo Social History Tobacco Use Types Packs/Day [...] documented as of this encounter Care Teams Journeyman Mechanic Relationship Specialty Start Date End Date Teena Castillo MD [address] [place] [phone] PCP - General Family Medicine 03/18/19 documented as of this encounter
--- OUTSIDE RECORDS SUMMARY | 2025-09-14 06:37 | XMS_ITS | Encounter Summary ---
Author Organization [employer] Address [address] [place] [address] Care Team Providers Care Software Quality Automation Engineer Name Role Phone Teena Castillo MD Primary Care Provide r Reason for Visit * Reason Onset Date Comments Med Refill 05/15/2025 Encounter Details Date Type Department Care Team (Late st Contact Info) Description 05/15/2025 Refill [facility]INE [address] [place] [address] Melly Neff, [address] [place] [address] Class 1 obesity due to excess calories [...] documented as of this encounter Care Teams Software Quality Automation Engineer Relationship Specialty Start Date End Date Teena Castillo MD [address] [place] [phone] PCP - General Family Medicine 03/18/19 documented as of this encounter
[2025-09-14 07:51] LABS: Alanine Aminotransferase 13 U/L (0-31); Albumin Level 3.7 g/dL (3.5-5.0); Alkaline Phosphatase 73 U/L (39-117); Anion Gap 13 (12-20); Aspartate Amino Transferase 17 U/L (5-31); Blood Urea Nitrogen 12 mg/dL (9-16); Calcium 8.9 mg/dL (8.4-10.2); Carbon Dioxide 22 mmol/L (22-29); Chloride 108 mmol/L (96-108); Cholesterol 163 mg/dL (<200); Estimated Glomerular Filt Rate > 60; HDL Cholesterol 59 mg/dL (>40); Potassium 3.7 mmol/L (3.3-5.1); Sodium 139 mmol/L (135-145); Total Protein 6.8 g/dL (6.5-8.0); Triglycerides 55 mg/dL (<150)
[2025-09-14 08:06] LABS: Microalbum/Creatinine Ratio Ur 48.2 ug/mg cr (<30)
== END 2025-09-14 06:34 ==
LOC: HO.LAB 06:33
PROVIDERS: PCP Internal Medicine; Visit Provider Internal Medicine
DX: R81 Glycosuria (principal)
CPT/HCPCS: 36415; 80053; 80061; 82043; 82306; 82570; 83036; 84443